=== PATIENT | female | born 1955 | race Caucasian/White ===

== ENCOUNTER 2019-04-15 06:00 | Outpatient (RCR) | payer OTHER, SELFPAY | END 2019-05-15 00:01 | LOC: SPT 06:00 | PROVIDERS: Family Provider Internal Medicine; Visit Provider Internal Medicine | DX: N39.3 Stress incontinence (female) (male) (principal) | CPT/HCPCS: 97110; 97140 ==

== ENCOUNTER → 2019-05-15 | Outpatient (CLI) | payer SELFPAY | PROVIDERS: Family Provider Internal Medicine; Visit Provider Podiatrist Foot & Ankle Surgery | DX: S92.355A Nondisplaced fracture of fifth metatarsal bone, left foot, initial encounter for closed fracture (principal); X58.XXXA Exposure to other specified factors, initial encounter; R60.9 Edema, unspecified | CPT/HCPCS: 73718; 73721 ==

== ENCOUNTER 2019-05-16 06:00 | Outpatient (RCR) | payer OTHER, SELFPAY | END 2019-06-15 23:59 | disposition home or self-care (01) | LOC: SPT 06:00 | PROVIDERS: Family Provider Internal Medicine; Visit Provider Podiatrist Foot & Ankle Surgery | DX: S92.355D Nondisplaced fracture of fifth metatarsal bone, left foot, subsequent encounter for fracture with routine healing (principal); X58.XXXD Exposure to other specified factors, subsequent encounter ==

== ENCOUNTER → 2019-05-24 16:21 | Outpatient (BNVA) | payer OTHER, SELFPAY | PROVIDERS: Family Provider Internal Medicine; PCP Internal Medicine; Visit Provider Podiatrist Foot & Ankle Surgery | DX: S92.352A Displaced fracture of fifth metatarsal bone, left foot, initial encounter for closed fracture (principal); X58.XXXA Exposure to other specified factors, initial encounter | CPT/HCPCS: 73630 ==

== ENCOUNTER 2019-06-22 06:52 | Day surgery (SDC) | payer OTHER, SELFPAY ==
[2019-06-21 11:03] VITALS: BMI 31.2
--- NOTE | 2019-06-22 | SCC_ITS ---
Procedure Done: Fifth metatarsal fracture Implants: Chama 28 hook plate and 2.5 mm locking and nonlocking screws. V 92 Ortho biologic 1 cc 3 seconds of fluoroscopic guidance, for a cumulative dose of 0.058 mGy, was provided to Dr. Nolasco by the radiology department. C-arm images of the LEFT foot were saved for the patient's permanent record. [facility]ENTER[facility]ed[facility]
[2019-06-22 07:24] VITALS: BP 142/73; PULSE 88; RESP 18; TEMP 36.4; O2SAT 96
[2019-06-22] MEDS: sodium chloride 0.9% 1,000 ML 30 ML IV (07:30)
--- NOTE | 2019-06-22 07:40 | ANES.PREANE2 ---
Pre-Anesthetic Assessment Pre-Anesthetic Assessment: Height/Weight: Height 1.63 m Weight 82.554 kg Temp Pulse Resp BP Pulse Ox 97.5 F L 88 18 142/73 96 06/22/19 07:24 06/22/19 07:24 06/22/19 07:24 06/22/19 07:24 06/22/19 07:24 Preop Diagnosis: Left fifth metatarsal fracture Proposed Procedure: Operation Date: 06/22/19 08:20 Proposed Procedures p ORIF Metatarsal 47616 S92.352D(Left) - Jarad Nolasco DPM Last intake: Intake Last Liquid Date 06/22/19 Last Liquid Time 04:00 Last Solid Date 06/21/19 Social: Packs per day: 1 Pack years: 46 Comment: quit 3 Exam: Pre-Anes Outpt Exam: alert, oriented x 3, clear to auscultation bilaterally and regular rate & rhythm CV/HEM: CV/HEM: HTN Comments: rx'd x 15 y hx electrical problems-Bundle branch block stress test negative 2Blocks/2FOS without angina/GONZALEZ GI: GI: GERD and Hiatus hernia Comments: well controlled Neuropsych: Neuropsych: Seizure Comments: last 10y following head trauma Anesthetic Plan: ASA status: 3 Anesthesia: MAC Meds/Allergies Current Medications: Current Medications Generic Name Dose Route Start Last Admin Trade Name Freq PRN Reason Stop Dose Admin Sodium Chloride 1,000 mls @ 30 ml s/hr 06/22/19 07:15 06/22/19 07:30 Sodium Chloride 0.9% IV 06/23/19 07:14 30 mls/hr .Q24H GILMA Administration PFSH Anesthesia PFSH: Medical History (Updated 06/21/19 @ 11:00 by Tiny Leonard RN) Anxiety and depression (Acute) GERD (gastroesophageal reflux disease) (Acute) Hypertension (Acute) Surgical History (Updated 06/21/19 @ 11:00 by Tiny Leonard RN) History of partial hysterectomy (Acute) History of total left hip arthroplasty (Acute) DOS: 04/22/2017 Dr. Geneva Pappas of appendectomy (Acute) Social History Smoking and tobacco status: former smoker Second hand smoke exposure: No Alcohol intake: never Adopted: No Caregiver/support person: Yes Lives independently: Yes Marital status: Single Current occupational status: employed Data Anesthesia Cardiac Studies: No Data to Display
[2019-06-22] MEDS: clindamycin 600 MG/50 ML PREMIX 100 MG IV (08:22)
--- NOTE | 2019-06-22 08:27 | PM.HPUD ---
H&P update H&P Update: DATE OF SURGERY/PROCEDURE: 06/22/19 DATE H&P PERFORMED: 05/24/19 H&P UPDATE INFORMATION: H&P completed within last 30 days, No changes to prior documentation and H&P is in [facility] on date indicated PREOP DIAGNOSIS: Left fifth metatarsal fracture PRIMARY INDICATION FOR PROCEDURE: Fifth metatarsal fracture PLANNED PROCEDURE: Operation Date: 06/22/19 08:20 Proposed Procedures p ORIF Metatarsal 06390 S92.352D(Left) - Jarad Nolasco DPM Open reduction internal fixation left fifth metatarsal fracture. Full H&P Medications/Allergies: Current Medications: Current Medications Generic Name Dose Route Start Last Admin Trade Name Freq PRN Reason Stop Dose Admin Sodium Chloride 1,000 mls @ 30 ml s/hr 06/22/19 07:15 06/22/19 07:30 Sodium Chloride 0.9% IV 06/23/19 07:14 30 mls/hr .Q24H GILMA Administration Perinent History: Medical/Surgical History: Medical History (Updated 05/29/19 @ 10:12 by Grzegorz Sanchez MD) Anxiety and depression (Acute) GERD (gastroesophageal reflux disease) (Acute) Hypertension (Acute) Family History: Family History (Updated 05/24/19 @ 17:20 by Katelyn Abrams RN) Mother Family history of premature coronary artery disease Hypertension Brother Cancer Hypertension Sister Cancer Father Family history of premature coronary artery disease Hypertension Denies family history of CAD (coronary artery disease) Suicide Anesthesia complication Bleeding disorder Social History: Social History Smoking and tobacco status: former smoker Second hand smoke exposure: No Alcohol intake: never Adopted: No Caregiver/support person: Yes Lives independently: Yes Marital status: Single Current occupational status: employed
[2019-06-22 09:43] VITALS: BP 112/55; PULSE 88; RESP 18; TEMP 36.6; O2SAT 94
--- NOTE | 2019-06-22 09:54 | XR_ITS ---
WS: [id number] Left foot, 3 views, 06/22/2019 Clinical Data: post op Comparison: Left foot, 05/24/2019 Findings: The fracture of the base of the left fifth metatarsal been repaired with a small orthopedic plate fi xed with orthopedic screws. XR/XR foot LT min 3V* [id number] Impression: Internal fixation of fracture of base of left fifth metatarsal.
--- NOTE | 2019-06-22 09:58 | PM.OP ---
Operative Report Date of procedure: June 22, 2019 Pre-op Diagnosis: Left fifth metatarsal fracture Post-op diagnosis: same Post-op Findings: Left fifth metatarsal fracture Procedure Done: Fifth metatarsal fracture Implants: [place] 28 hook plate and 2.5 mm locking and nonlocking screws. V 92 Ortho biologic 1 cc Specimens removed/disposition: No specimens removed Pathology: none sent Surgeon: Jarad Nolasco D.P.M. Acidizer Water Well: [place] Anesthesia: MAC and Local (Preoperatively performed a reverse Freedman block utilizing 25 cc of 0.5% Marcaine plain left foot. Postoperatively performed infiltration with Exparel total of 10 cc subcutaneously) Estimated blood loss: 2 mL Tourniquet time: See intraoperative documentation IV fluids: No IV fluids Urine output: None Complications: No complications Findings: Avulsion fracture left fifth metatarsal base Condition: stable Disposition: PACU Brief History: Is a pleasant 64-year-old female who sustained a avulsion fracture zone 1/tuberosity fracture of her left fifth metatarsal base. Unfortunately she developed a painful nonunion with conservative care consisting of nonweightbearing and protected weightbearing in a cam boot. Would like to undergo open reduction internal fixation risks include pain, bleeding, numbness, infection, hardware failure, hardware irritation, delayed union, malunion, damage to adjacent soft tissue structures, swelling, need for further surgical intervention.. Procedure: Under mild sedation the patient was brought to the operating room and placed on the operating table in supine position. A timeout was performed. Anesthesia was then administered by the anesthesia service. Local anesthesia was injected by myself as above. Well-padded pneumatic tourniquet was applied to the left ankle. The left lower extremity was then scrubbed, prepped and draped utilizing normal aseptic technique. Left foot was examined a weighted with an Esmarch bandage and the tourniquet was inflated to 250 mmHg. Attention was directed to the dorsal lateral aspect of the left fifth metatarsal base were bony landmarks were palpated including the tuberosity as well as peroneal tendon. A linear longitudinal incision was made with a #15 blade this was approximately 5 cm in length and carried down through skin and subcutaneous tissue utilizing a combination of blunt and sharp technique. Care was taken to retract and preserve neurovascular and tendinous structures. Bleeders were ligated and cauterized as necessary. The sural nerve was visualized and this was mobilized and retracted laterally throughout the duration of the procedure. A linear periosteal incision was made beginning at the base of the fifth metatarsal and the fracture site was visualized and freed from its soft tissue attachments. Fracture margins were freshened to healthy bleeding margin utilizing a 15 blade and bone curette. Incision site was then flushed with saline solution. Fracture site was then reduced with the foot held in a everted position as to avoid tension on the proneness brevis tendon insertion. A standard Cambridge 28 hook plate was then utilized to secure the fracture site with excellent bony apposition and compression noted. Utilizing 2.5 mm locking and nonlocking screws and standard AO technique the plate was fixated with excellent bone to plate interface. Orthopedic hardware positioning was confirmed utilizing direct visualization as well as intraoperative fluoroscopy in all 3 views noted to be excellent in all planes. A fracture site was then packed with V 92 with a mixture of bone marrow aspirate that was taken from the lateral calcaneus prior to the surgery. Incision site was gently irrigated with saline solution as to not disturb the Ortho biologic. Periosteal structure was reapproximated utilizing 3-0 Vicryl. Subcutaneous tissue was reapproximated utilizing 4-0 Vicryl with care to not entrap the sural nerve. Skin was then closed with 4-0 nylon. Incision site was dressed with Adaptic, sterile 4 x 4's, Kerlix and Scotty wrap, cam boot was applied. At this time tourniquet was deflated and a prompt hyperemic response was noted to the distal digits of the left foot. Patient tolerated the procedure well and was transferred to the PACU with vital signs stable and vascular status intact. Following a period of postoperative monitoring she will be discharged home is to be strict nonweightbearing to her left foot.
[2019-06-22 10:18] VITALS: BP 114/52; PULSE 80; RESP 18; O2SAT 96
== END 2019-06-22 10:57 | disposition home or self-care (01) ==
PROVIDERS: Family Provider Internal Medicine; PCP Internal Medicine; Visit Provider Podiatrist Foot & Ankle Surgery
PROC: (CPT 28485; principal; 2019-06-22 08:00)
DX: S92.352A Displaced fracture of fifth metatarsal bone, left foot, initial encounter for closed fracture (principal); X58.XXXA Exposure to other specified factors, initial encounter; F41.9 Anxiety disorder, unspecified; F32.9 Major depressive disorder, single episode, unspecified; Z82.49 Family history of ischemic heart disease and other diseases of the circulatory system; Z87.891 Personal history of nicotine dependence; K21.9 Gastro-esophageal reflux disease without esophagitis; I10 Essential (primary) hypertension
CPT/HCPCS: 28485; 12345; 73630; 76000; C1713; C9290; J2250; J2370; J2704; J3010; J3490; J7030

== ENCOUNTER → 2019-07-04 11:22 | Outpatient (BNVA) | payer OTHER, SELFPAY | PROVIDERS: Family Provider Internal Medicine; PCP Internal Medicine; Visit Provider Podiatrist Foot & Ankle Surgery | DX: Z48.89 Encounter for other specified surgical aftercare (principal) | CPT/HCPCS: 73630 ==

== ENCOUNTER → 2019-07-25 14:11 | Outpatient (BNVA) | payer OTHER, SELFPAY | PROVIDERS: Family Provider Internal Medicine; PCP Internal Medicine; Visit Provider Podiatrist Foot & Ankle Surgery | DX: Z48.89 Encounter for other specified surgical aftercare (principal); S92.352A Displaced fracture of fifth metatarsal bone, left foot, initial encounter for closed fracture; X58.XXXA Exposure to other specified factors, initial encounter | CPT/HCPCS: 73630 ==

== ENCOUNTER → 2019-08-15 09:48 | Outpatient (BNVA) | payer OTHER, SELFPAY | PROVIDERS: Family Provider Internal Medicine; PCP Internal Medicine; Visit Provider Podiatrist Foot & Ankle Surgery | DX: Z48.89 Encounter for other specified surgical aftercare (principal); S92.352A Displaced fracture of fifth metatarsal bone, left foot, initial encounter for closed fracture; X58.XXXA Exposure to other specified factors, initial encounter | CPT/HCPCS: 73630 ==

== ENCOUNTER → 2019-09-05 09:24 | Outpatient (BNVA) | payer OTHER, SELFPAY | PROVIDERS: Family Provider Internal Medicine; PCP Internal Medicine; Visit Provider Podiatrist Foot & Ankle Surgery | DX: Z48.89 Encounter for other specified surgical aftercare (principal) | CPT/HCPCS: 73630 ==

== ENCOUNTER 2019-09-18 16:04 | Emergency (ER) | payer OTHER, SELFPAY ==
[2019-09-18 16:07] VITALS: BP 166/76; PULSE 91; RESP 18; TEMP 36.4; O2SAT 97; BMI 30.8
--- NOTE | 2019-09-18 16:16 | XR_ITS ---
WS: [id number] XR ankle LT 2V [id number] REASON FOR EXAM: fall FINDINGS: The ankle mortise is normal. The tibia, fibula, talus show no definite fractures. A remote healed fracture of the base of the fifth metatarsal is noted. The posterior shelf of the tibia was normal. XR/XR ankle LT 2V [id number] IMPRESSION: Negative left ankle for fractures.
== END 2019-09-18 17:27 | disposition left against medical advice (07) ==
LOC: ER 16:12
PROVIDERS: Emergency Provider Physician Assistant; Family Provider Internal Medicine; PCP Internal Medicine
DX: Z53.21 Procedure and treatment not carried out due to patient leaving prior to being seen by health care provider (principal)
CPT/HCPCS: 73600; 99281

== ENCOUNTER → 2019-09-19 08:44 | Outpatient (BNVA) | payer OTHER, SELFPAY | PROVIDERS: Family Provider Internal Medicine; PCP Internal Medicine; Visit Provider Podiatrist Foot & Ankle Surgery | DX: Z48.89 Encounter for other specified surgical aftercare (principal); M79.673 Pain in unspecified foot; S92.332A Displaced fracture of third metatarsal bone, left foot, initial encounter for closed fracture | CPT/HCPCS: 73630 ==

== ENCOUNTER 2019-09-19 10:23 | Outpatient (CLI) | payer OTHER, SELFPAY ==
--- NOTE | 2019-09-19 11:00 | CT_ITS ---
WS: [id number] CT LEFT FOOT, NONCONTRAST, 3-D reconstructions. HISTORY: To rule out Lisfranc fracture Technique: All CT scans at [facility] use at least one of these dose optimization techniq ues: automated exposure control; mA and/or kV adjustment per patient size (includes targeted exams wh ere dose is matched to clinical indication); or iterative reconstruction. DLP: 810.82 mGycm COMPARISON: 09/19/2019 CT imaging is performed through cast material. Normal tarsal/metatarsal alignment. There is no avulsion fracture at the base of the second metatars al or from the first cuneiform. There is no widening between the first and second metatarsals. Plate and screw fixation involving the proximal fifth metatarsal. Normal alignment with essentially h ealed fracture. Nonhealed and nondisplaced fractures through the proximal third and fourth metatarsal s along the plantar surface. There is no displacement. There is an additional fracture through the pl hung surface of the third cuneiform. These fractures are best identified on the axial bone imaging. There is a lucency within the proximal first metatarsal but I believe this is probably a nutrient for amen and not a fracture. Calcaneus and talus are intact. CT/CT foot LT wo con* [id number] IMPRESSION: 1. No Lisfranc injury identified by CT. No avulsion fracture from the first cu neiform or second metatarsal. 2. Nondisplaced fractures involving the plantar surfaces of the third and four th metatarsals and also the third cuneiform. 3. Status post ORIF fifth metatarsal fracture in good alignment with healing.
== END 2019-09-19 10:24 | disposition home or self-care (01) ==
LOC: RADWPI 10:27
PROVIDERS: Family Provider Internal Medicine; PCP Internal Medicine; Visit Provider Podiatrist Foot & Ankle Surgery
DX: S92.332A Displaced fracture of third metatarsal bone, left foot, initial encounter for closed fracture (principal); X58.XXXA Exposure to other specified factors, initial encounter
CPT/HCPCS: 73700

== ENCOUNTER → 2019-10-01 11:59 | Outpatient (BNVA) | payer OTHER, SELFPAY | PROVIDERS: Family Provider Internal Medicine; PCP Internal Medicine; Visit Provider Podiatrist Foot & Ankle Surgery | DX: Z48.89 Encounter for other specified surgical aftercare (principal); M79.673 Pain in unspecified foot; X58.XXXA Exposure to other specified factors, initial encounter; S92.332D Displaced fracture of third metatarsal bone, left foot, subsequent encounter for fracture with routine healing; S92.352D Displaced fracture of fifth metatarsal bone, left foot, subsequent encounter for fracture with routine healing; X58.XXXD Exposure to other specified factors, subsequent encounter | CPT/HCPCS: 73630 ==

== ENCOUNTER 2019-10-01 15:06 | Outpatient (CLI) | payer OTHER, SELFPAY | END 2019-10-01 15:07 | disposition home or self-care (01) | LOC: SPT 15:07 | PROVIDERS: Family Provider Internal Medicine; PCP Internal Medicine; Visit Provider Podiatrist Foot & Ankle Surgery | DX: Z46.89 Encounter for fitting and adjustment of other specified devices (principal); S92.345D Nondisplaced fracture of fourth metatarsal bone, left foot, subsequent encounter for fracture with routine healing; X58.XXXD Exposure to other specified factors, subsequent encounter | CPT/HCPCS: 97760; L4361 ==

== ENCOUNTER → 2019-10-15 15:11 | Outpatient (BNVA) | payer OTHER, SELFPAY | PROVIDERS: Family Provider Internal Medicine; PCP Internal Medicine; Visit Provider Podiatrist Foot & Ankle Surgery | DX: Z48.89 Encounter for other specified surgical aftercare (principal); M79.673 Pain in unspecified foot; S92.333A Displaced fracture of third metatarsal bone, unspecified foot, initial encounter for closed fracture; S92.345A Nondisplaced fracture of fourth metatarsal bone, left foot, initial encounter for closed fracture; S92.352A Displaced fracture of fifth metatarsal bone, left foot, initial encounter for closed fracture; X58.XXXA Exposure to other specified factors, initial encounter | CPT/HCPCS: 73630 ==

== ENCOUNTER → 2019-10-30 15:10 | Outpatient (BNVA) | payer OTHER, SELFPAY | PROVIDERS: Family Provider Internal Medicine; PCP Internal Medicine; Visit Provider Podiatrist Foot & Ankle Surgery | DX: Z48.89 Encounter for other specified surgical aftercare (principal); S92.335A Nondisplaced fracture of third metatarsal bone, left foot, initial encounter for closed fracture; S92.345A Nondisplaced fracture of fourth metatarsal bone, left foot, initial encounter for closed fracture; S92.345D Nondisplaced fracture of fourth metatarsal bone, left foot, subsequent encounter for fracture with routine healing; X58.XXXA Exposure to other specified factors, initial encounter; X58.XXXD Exposure to other specified factors, subsequent encounter | CPT/HCPCS: 73630 ==

== ENCOUNTER → 2019-11-19 15:22 | Outpatient (BNVA) | payer OTHER, SELFPAY | PROVIDERS: Family Provider Internal Medicine; PCP Internal Medicine; Visit Provider Podiatrist Foot & Ankle Surgery | DX: S92.335D Nondisplaced fracture of third metatarsal bone, left foot, subsequent encounter for fracture with routine healing (principal); X50.1XXD Overexertion from prolonged static or awkward postures, subsequent encounter; S92.345D Nondisplaced fracture of fourth metatarsal bone, left foot, subsequent encounter for fracture with routine healing; Z98.890 Other specified postprocedural states | CPT/HCPCS: 73630 ==

== ENCOUNTER → 2019-12-06 15:43 | Outpatient (BNVA) | payer OTHER, SELFPAY | PROVIDERS: Family Provider Internal Medicine; PCP Internal Medicine; Visit Provider Podiatrist Foot & Ankle Surgery | DX: Z48.89 Encounter for other specified surgical aftercare (principal); M79.673 Pain in unspecified foot; S92.345A Nondisplaced fracture of fourth metatarsal bone, left foot, initial encounter for closed fracture; S92.332A Displaced fracture of third metatarsal bone, left foot, initial encounter for closed fracture | CPT/HCPCS: 73630 ==

== ENCOUNTER 2020-01-20 15:16 | Inpatient (IN) | payer OTHER, SELFPAY ==
[2020-01-20] VITALS (44 sets, daily range): BP systolic 113–185; BP diastolic 62–103; PULSE 72–112; RESP 15–30; TEMP 36.2–37.1; O2SAT 87–98; BMI 32.5
--- NOTE | 2020-01-20 15:25 | USR_ITS ---
PROCEDURE INFORMATION: Exam: US Duplex Right Lower Extremity Veins, Limited Exam date and time: 01/20/2020 3:28 PM Age: 64 years old Clinical indication: Pain; Leg, upper; Right; Additional info: Pain/swelling TECHNIQUE: Imaging protocol: Real-time Duplex ultrasound of the Right Lower Extremity with 2-D caro scale, color Doppler flow and spectral waveform analysis with image documentation. Limited exam was focused on the right lower extremity veins. COMPARISON: No relevant prior studies available. FINDINGS: Right deep veins: Unremarkable. The common femoral, femoral, proximal profunda femoral and popliteal veins are patent without thrombus. Normal Doppler waveforms. Normal compressibility and/or augmentation response. Right superficial veins: Unremarkable. Saphenofemoral junction is patent without thrombus. Soft tissues: There is a 3.9 x 1.9 x 3.4 cm solid mass posterior to the right knee. This mass has internal vascularity and is not a cyst. US/[place] [id number] IMPRESSION: 1. There is a 3.9 x 1.9 x 3.4 cm solid mass posterior to the right knee. This mass has internal vascularity and is not a cyst. MRI with without contrast is recommended to further evaluate this mass which is concerning for a neoplasm especially given its size. It does not have the typical shape or appearance of adenopathy. 2. No DVT in the right lower extremity.
--- NOTE | 2020-01-20 15:26 | XRR_ITS ---
PROCEDURE INFORMATION: Exam: XR Chest, 1 View Exam date and time: 01/20/2020 3:28 PM Age: 64 years old Clinical indication: Shortness of breath; Additional info: Dyspnea TECHNIQUE: Imaging protocol: XR of the chest Views: 1 view. COMPARISON: [place] Chest 1 [place] [id number] 08/07/2018 1:58 AM FINDINGS: Lungs: There is vascular congestion with cephalization of flow, interstitial edema, Irnia B lines without airspace edema compatible with mild interstitial CHF. No lobar consolidation. The lungs are hyperinflated in appears may be a component of underlying mild fibrosis. Pleural space: Unremarkable. No pleural effusion. No pneumothorax. Heart/Mediastinum: The heart is enlarged. Bones/joints: No acute abnormality. XR/XR chest 1V portable [id number] IMPRESSION: There is vascular congestion with cephalization of flow, interstitial edema, Irina B lines without airspace edema compatible with mild interstitial CHF.
--- NOTE | 2020-01-20 15:27 | ECG_ITS ---
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 Measurements Intervals Sinking [place] Rate: 94 P: 43 MO: 156 QRS: 8 QRSD: 158 T: 187 QT: 387 QTc: 484 Interpretive Statements SINUS RHYTHM LEFT BUNDLE BRANCH BLOCK [120+ ms QRS DURATION, 80+ ms Q/S IN V1/V2, 85+ ms R IN I/aVL/V5/V6] Compared to ECG 11/05/2018 20:24:41 Sinus tachycardia no longer present Electronically Signed On 01-21-2020 7:52:10 CDT by Ruthann Mccullough M.D. [id number]
--- NOTE | 2020-01-20 15:32 | W.ED.GENADLT ---
HPI - General Adult General: Chief complaint: General Medical Stated complaint: right leg swelling Time Seen by Provider: 01/20/20 15:20 History of Present Illness: HPI narrative: Dennise is a nice 64-year-old female who comes in complaining of right leg pain and swelling. She states her symptoms began yesterday and have gotten progressively worse. She states she feels pressure occur up in her right groin. She denies any chest pain but does have associated shortness of breath that is made worse with exertion. She denies any fevers or chills she denies any abdominal pain or left leg pain. Patient denies any similar symptoms to this in the past. She is unaware of anything that makes her symptoms better or worse other than when she exerts herself she becomes more short of breath. Associated symptoms: Reports chest pain and dyspnea; Deny confusion, diaphoresis, headache(s), malaise, nausea, rash, palpitations, syncope or vomiting Review of Systems Const: Denies: fever(s), chills, body aches, fatigue, malaise or diaphoresis Eyes: Denies: change in vision, blurry vision, photophobia, eye discomfort, eye discharge or eye redness ENMT: Denies: throat pain, odynophagia, hoarseness, swelling of lips/tongue, ear or mastoid pain, ear discharge, change in hearing or nasal discharge Card: Reports: chest pain; Denies: palpitations, irregular heart rhythm, edema, lightheadedness, syncope, pre-syncope, dyspnea on exertion or orthopnea Resp: Reports: dyspnea; Denies: productive cough, non-productive cough, wheezing, hemoptysis or chest congestion GI: Denies: abdominal pain, nausea, vomiting, hematemesis, coffee ground emesis, heartburn, diarrhea, constipation, GI cramping, hematochezia or melena : Denies: flank pain, dysuria, urinary frequency, urinary urgency or hematuria Musc: Reports: extremity pain; Denies: neck pain, back pain, extremity swelling, joint pain, joint swelling, joint redness, joint warmth or joint stiffness Skin/Breast: Denies: rash, pruritus, erythema or skin tenderness Neuro: Denies: headache(s), numbness in extremities, weakness in extremities, sensory changes, lack of coordination, difficulty walking, dizziness, vertigo, confusion, Slurred speech present or seizure-like activity Govind/Lymph: Denies: easy bruising, easy bleeding, petechiae, purpura or enlarged lymph nodes All/Imm: Denies: urticaria, throat swelling, tongue swelling, facial swelling or acute wheezing PFSH ED PFSH: Medical History Anxiety and depression GERD (gastroesophageal reflux disease) Hypertension Metabolic syndrome Sleep apnea Surgical History H/O tubal ligation History of hernia repair History of partial hysterectomy History of total left hip arthroplasty DOS: 04/22/2017 Dr. Bean History of total right hip arthroplasty Hx of appendectomy Family History Mother Family history of premature coronary artery disease Hypertension Brother Cancer Hypertension Sister Cancer Father Family history of premature coronary artery disease Hypertension Denies family history of Diabetes CAD (coronary artery disease) Clotting disorder Dementia Hyperlipidemia Psychiatric illness Chronic kidney disease (CKD) Suicide Anesthesia complication Bleeding disorder Lung disease Stroke Social History Smoking and tobacco status: former smoker Second hand smoke exposure: No Alcohol intake: never Adopted: No Caregiver/support person: Yes Lives independently: Yes Marital status: Single Current occupational status: employed Physical Exam Const: COMMON NORMALS: no acute distress, patient oriented x3, no limitations, healthy appearing and well nourished GENERAL APPEARANCE: cooperative, well kempt and well developed HENMT: COMMON NORMALS: normocephalic, atraumatic, external ears normal, EAC's normal and Normal external nose present HEAD & SCALP: normal to inspection, normocephalic and atraumatic FACE & SINUS: normal facial exam and face symmetric NOSE: Normal external nose present and Normal nares present EXTERNAL EAR: Yes external ears normal EXTERNAL AUDITORY CANAL: EAC's normal MOUTH: Normal oral and palatal mucosa present, lip normal and tongue normal Eye: COMMON NORMALS: Equal, round and reactive pupils present and conjunctivae normal GENERAL EYE: appearance normal, both eyes and all related structures ALIGNMENT: Yes alignment normal PERIORBITAL: periorbital findings normal EYELID: eyelids normal CONJUNCTIVA: Yes conjunctivae normal SCLERA: sclerae normal PUPIL: Yes Equal, round and reactive pupils present Neck/C-Spine: COMMON NORMALS: full ROM, no lymphadenopathy, supple, no meningeal signs and no JVD GENERAL: Yes normal visual inspection and Yes trachea midline Chest: COMMONS NORMALS: normal inspection of the chest and normal palpation of entire chest wall Resp: COMMON NORMALS: normal respiratory effort, No retractions, No use of accessory muscles and clear to auscultation bilaterally EFFORT & INSPECTION: Yes able to speak in complete sentences and Yes symmetric chest movement AUSCULTATION: clear to auscultation bilaterally, no crackles, no rales, no rhonchi and no wheezes Cardio: COMMON NORMALS: no JVD, regular rate, regular rhythm, S1 normal heart sound present and S2 normal heart sound present RATE: regular rate RHYTHM: regular rhythm HEART SOUNDS: S1 normal heart sound present, S2 normal heart sound present, no click, no gallops, no murmurs, no rubs and abnormal split S2 GI: COMMON NORMALS: Soft to palpation and No hepatosplenomegaly present PALPATION: Yes Soft to palpation, No Tenderness to palpation present (GI), No Guarding due to palpation present (GI), No Rigid due to palpation, Yes No hepatosplenomegaly present, No Hernia present, No Palpable mass present and No Pulsatile mass present : COMMON NORMALS: Yes no CVA tenderness BLADDER/KIDNEY EXAM: Yes no CVA tenderness EXTERNAL FEMALE EXAM: No Hernia present Back/Pelvis: COMMON NORMALS: no CVA tenderness, thoracic and lumbar spine normal to inspection, no thoracic nor lumbar tenderness and thoraco-lumbar ROM normal Extremity: COMMON NORMALS: normal to inspection, full ROM, capillary refill normal, no joint enlargement, no clubbing, cyanosis or edema and no calf tenderness Neuro: COMMON NORMALS: patient oriented x3, CN's II-XII intact bilaterally, moves all extremities, no focal motor deficits and no sensory deficits noted MENINGEAL SIGNS: Yes no meningeal signs SPEECH: speech normal Psych: COMMON NORMALS: mental status grossly normal, Normal thought process present, cooperative, normal affect, speech normal and activity/motor behavior normal APPEARANCE: Yes well kempt SPEECH: Yes normal speech THOUGHT PROCESS: Normal thought process present Skin: COMMON NORMALS: no rashes or lesions noted, turgor normal, no jaundice, no petechiae and no mottling GENERAL SKIN EXAM: no rashes or lesions noted and turgor normal Course Vital Signs: Vital signs: Vital Signs Temperature 97.1 F L 01/20/20 15:18 Pulse Rate 104 H 01/20/20 17:55 Respiratory Rate 22 H 01/20/20 17:55 Blood Pressure 155/81 01/20/20 17:55 Pulse Oximetry 98 01/20/20 17:55 MDM - General Adult MDM Narrative: Medical decision making narrative: Patient got extremely panicky here and had a fall. She complains of injury to her left shoulder but x-rays are normal. Patient shows no sign of elevation of her cardiac enzymes. Her EKG shows a stable left bundle branch block. There is no PE on CT. She doing much better now after she is diuresed 1500 cc of fluid. I have added on a COVID test per the request of the hospitalist. Dr. Hawthorne agrees to come see the patient in the ER. Lab Data: Attestation: I reviewed the patient's lab results. Labs: Lab Results 01/20/20 01/20/20 01/20/20 Range/Units 15:40 15:40 15:40 WBC 5.0 (4.0-10.0) 10^3/ uL RBC 4.18 (4.1-5.3) 10^6/u L Hgb 12.7 (11.5-15.3) g/dL Hct 39.4 (37.0-47.0) % MCV 94.3 (81-99) fL MCH 30.4 (28.0-34.0) pg MCHC 32.2 (30.0-36.0) g/dL RDW 13.5 (12.1-15.1) % Plt Count 269 (130-400) 10^3/c mm MPV 9.7 (7.4-10.4) fL Neut % (Auto) 60.8 % Lymph % (Auto) 32.0 % [place] % (Auto) 5.4 % Eos % (Auto) 0.8 % Baso % (Auto) 0.8 % Neut # (Auto) 3.06 (1.8-7.7) 10^3/u L Lymph # (Auto) 1.6 (0.8-4.8) 10^3/u L [place] # (Auto) 0.3 (0.2-0.9) 10^3/u L Eos # (Auto) 0.0 (0.0-0.8) 10^3/u L Baso # (Auto) 0.0 (0.0-0.1) 10^3/u L Nucleated RBC % (a uto) 0 % Nucleated RBCs # 0.0 /100WBC PT 12.30 (12.1-14.9) SECO NDS INR 0.89 (0.8-1.2) D-Dimer 1.58 H (0-0.59) ug/mIFE U Specimen Type Sample Site ABG pH (7.35-7.45) ABG pCO2 (35-45) mmHg ABG pO2 (80.0-100.0) mmH g ABG HCO3 (22-26) mmol/L ABG Base Excess (-2.0-2.0) mmol/ L Dexter Test Hematocrit (37-47) % O2 Delivery Device Irrigation Service Technician ID Sodium 142 (136-145) mmol/L Potassium 3.5 (3.5-5.1) mmol/L Chloride 106 (98-107) mmol/L Carbon Dioxide 26 (22-29) mmol/L Anion Gap 13.5 (5-19) BUN 9 (8-23) mg/dL Creatinine 0.8 (0.5-0.9) mg/dL GFR Calculation 72.4 L (90-130) mL/min Glucose 136 H (65-115) mg/dL Calculated Osmolal ity 292 (285-295) mOsm/k g Lactic Acid (0.5-2.2) mmol/L Calcium 9.1 (8.5-10.5) mg/dL Magnesium 1.9 (1.7-2.3) mg/dL Total Bilirubin 0.5 (0.15-1.2) mg/dL AST 19 (0-32) U/L ALT 21 (0-33) U/L Alkaline Phosphata se 129 H (35-105) IU/L Troponin T Baselin e (0-10) ng/L NT-Pro-B Natriuret Pep 759 H (0-125) pg/mL Total Protein 7.0 (6.6-8.7) g/dL Albumin 4.3 (3.5-5.2) g/dL Globulin 2.7 (1.3-4.6) g/dL Urine Color (Yellow) Urine Appearance (CLEAR) Urine pH (5-7) Ur Specific Gravit y (1.005-1.030) Urine Protein (Negative) Urine Glucose (UA) (Normal) Urine Ketones (Negative) Urine Blood (Negative) Urine Nitrate (Negative) Urine Bilirubin (NEGATIVE) Prot Sulfosalicyli c Acd (Negative) Urine Urobilinogen (Negative) mg/dL Ur Leukocyte Norma ase (Negative) 01/20/20 01/20/20 01/20/20 Range/Units 15:40 15:40 15:49 WBC (4.0-10.0) 10^3/ uL RBC (4.1-5.3) 10^6/u L Hgb (11.5-15.3) g/dL Hct (37.0-47.0) % MCV (81-99) fL MCH (28.0-34.0) pg MCHC (30.0-36.0) g/dL RDW (12.1-15.1) % Plt Count (130-400) 10^3/c mm MPV (7.4-10.4) fL Neut % (Auto) % Lymph % (Auto) % [place] % (Auto) % Eos % (Auto) % Baso % (Auto) % Neut # (Auto) (1.8-7.7) 10^3/u L Lymph # (Auto) (0.8-4.8) 10^3/u L [place] # (Auto) (0.2-0.9) 10^3/u L Eos # (Auto) (0.0-0.8) 10^3/u L Baso # (Auto) (0.0-0.1) 10^3/u L Nucleated RBC % (a uto) % Nucleated RBCs # /100WBC PT (12.1-14.9) SECO NDS INR (0.8-1.2) D-Dimer (0-0.59) ug/mIFE U Specimen Type Arterial Sample Site Radial, left ABG pH 7.41 (7.35-7.45) ABG pCO2 38.8 (35-45) mmHg ABG pO2 87.4 (80.0-100.0) mmH g ABG HCO3 24.6 (22-26) mmol/L ABG Base Excess 0.1 (-2.0-2.0) mmol/ L Dexter Test Pos Hematocrit 40.9 (37-47) % O2 Delivery Device Room air Irrigation Service Technician ID Gd Sodium (136-145) mmol/L Potassium (3.5-5.1) mmol/L Chloride (98-107) mmol/L Carbon Dioxide (22-29) mmol/L Anion Gap (5-19) BUN (8-23) mg/dL Creatinine (0.5-0.9) mg/dL GFR Calculation (90-130) mL/min Glucose (65-115) mg/dL Calculated Osmolal ity (285-295) mOsm/k g Lactic Acid 1.8 (0.5-2.2) mmol/L Calcium (8.5-10.5) mg/dL Magnesium (1.7-2.3) mg/dL Total Bilirubin (0.15-1.2) mg/dL AST (0-32) U/L ALT (0-33) U/L Alkaline Phosphata se (35-105) IU/L Troponin T Baselin e 8 (0-10) ng/L NT-Pro-B Natriuret Pep (0-125) pg/mL Total Protein (6.6-8.7) g/dL Albumin (3.5-5.2) g/dL Globulin (1.3-4.6) g/dL Urine Color (Yellow) Urine Appearance (CLEAR) Urine pH (5-7) Ur Specific Gravit y (1.005-1.030) Urine Protein (Negative) Urine Glucose (UA) (Normal) Urine Ketones (Negative) Urine Blood (Negative) Urine Nitrate (Negative) Urine Bilirubin (NEGATIVE) Prot Sulfosalicyli c Acd (Negative) Urine Urobilinogen (Negative) mg/dL Ur Leukocyte Norma ase (Negative) 01/20/20 Range/Units 17:10 WBC (4.0-10.0) 10^3/ uL RBC (4.1-5.3) 10^6/u L Hgb (11.5-15.3) g/dL Hct (37.0-47.0) % MCV (81-99) fL MCH (28.0-34.0) pg MCHC (30.0-36.0) g/dL RDW (12.1-15.1) % Plt Count (130-400) 10^3/c mm MPV (7.4-10.4) fL Neut % (Auto) % Lymph % (Auto) % [place] % (Auto) % Eos % (Auto) % Baso % (Auto) % Neut # (Auto) (1.8-7.7) 10^3/u L Lymph # (Auto) (0.8-4.8) 10^3/u L [place] # (Auto) (0.2-0.9) 10^3/u L Eos # (Auto) (0.0-0.8) 10^3/u L Baso # (Auto) (0.0-0.1) 10^3/u L Nucleated RBC % (a uto) % Nucleated RBCs # /100WBC PT (12.1-14.9) SECO NDS INR (0.8-1.2) D-Dimer (0-0.59) ug/mIFE U Specimen Type Sample Site ABG pH (7.35-7.45) ABG pCO2 (35-45) mmHg ABG pO2 (80.0-100.0) mmH g ABG HCO3 (22-26) mmol/L ABG Base Excess (-2.0-2.0) mmol/ L Dexter Test Hematocrit (37-47) % O2 Delivery Device Irrigation Service Technician ID Sodium (136-145) mmol/L Potassium (3.5-5.1) mmol/L Chloride (98-107) mmol/L Carbon Dioxide (22-29) mmol/L Anion Gap (5-19) BUN (8-23) mg/dL Creatinine (0.5-0.9) mg/dL GFR Calculation (90-130) mL/min Glucose (65-115) mg/dL Calculated Osmolal ity (285-295) mOsm/k g Lactic Acid (0.5-2.2) mmol/L Calcium (8.5-10.5) mg/dL Magnesium (1.7-2.3) mg/dL Total Bilirubin (0.15-1.2) mg/dL AST (0-32) U/L ALT (0-33) U/L Alkaline Phosphata se (35-105) IU/L Troponin T Baselin e (0-10) ng/L NT-Pro-B Natriuret Pep (0-125) pg/mL Total Protein (6.6-8.7) g/dL Albumin (3.5-5.2) g/dL Globulin (1.3-4.6) g/dL Urine Color Yellow (Yellow) Urine Appearance Clear (CLEAR) Urine pH 8 H (5-7) Ur Specific Gravit y 1.005 (1.005-1.030) Urine Protein Neg (Negative) Urine Glucose (UA) Norm (Normal) Urine Ketones Negative (Negative) Urine Blood Neg (Negative) Urine Nitrate Negative (Negative) Urine Bilirubin Neg (NEGATIVE) Prot Sulfosalicyli c Acd Negative (Negative) Urine Urobilinogen Norm (Negative) mg/dL Ur Leukocyte Norma ase Negative (Negative) Imaging Data^: CXR: Attestation: I personally reviewed and interpreted this imaging study as follows: My impression: Mild pulmonary vascular congestion CT Chest: Radiologist's impression: [place] [address] CT Scan Report Signed Patient: Dennise Funes Unit #: [id number] : 1955 Age/Sex: 64 / F ADM Date: 01/20/20 Loc: ER Room/Bed: Attending Dr: Ordering Provider/Ordering MD: Phuong Mckeon DO Date of Service: 01/20/20 Procedure(s): CT angio chest PE protcl [id number] Accession Number(s): [id number] Report Number: [id number] PROCEDURE INFORMATION: Exam: CT Angiography Chest With Contrast Exam date and time: 01/20/2020 4:17 PM Age: 64 years old Clinical indication: Dyspnea and shortness of breath TECHNIQUE: Imaging protocol: Computed tomographic angiography of the chest with intravenous contrast. 3D rendering (Not supervised by radiologist): MIP and/or 3D reconstructed images were created by the technologist. Radiation optimization: All CT scans at this facility use at least one of these dose optimization techniques: automated exposure control; mA and/or kV adjustment per patient size (includes targeted exams where dose is matched to clinical indication); or iterative reconstruction. Contrast material: OMNIPAQUE 350; Contrast volume: 95 ml; Contrast route: INTRAVENOUS (IV); COMPARISON: CTA Chest-Pulmonary Emb [id number] 08/07/2018 3:15 AM RADIATION DOSE METRICS: Total DLP (mGy-cm): 601.92 FINDINGS: Pulmonary arteries: There is no pulmonary embolus. Aorta: Unremarkable. No aortic aneurysm. No aortic dissection. Lungs: There is ground-glass opacity with a tree-in-bud densities in the lungs compatible with pneumonitis. There are moderate emphysematous changes. No dense lobar consolidation. There is subpleural atelectasis of the dependent portions of the lungs. Pleural space: Unremarkable. No pneumothorax. No pleural effusion. Heart: Unremarkable. No cardiomegaly. No pericardial effusion. Mediastinal space: A small hiatal hernia is present. Lymph nodes: Unremarkable. No enlarged lymph nodes. Adrenals: There are unchanged bilateral lipid rich adrenal adenomas. Bones/joints: Unremarkable. No acute fracture. Soft tissues: Unremarkable. CT/CT angio chest PE protcl [id number] IMPRESSION: 1. There is no pulmonary embolus. 2. There are unchanged bilateral lipid rich adrenal adenomas. 3. There is ground-glass opacity with a tree-in-bud densities in the lungs compatible with pneumonitis. No lobar consolidation. Radiation Dose CTDIVOL = (mGy): DLP = 601.92 (mGy-cm) Dictated By: Franchesca Barr Signed By: Franchesca Barr Signed Date/Time: 01/20/201702 DD/ 01 Left shoulder: My impression: Acute fractures or dislocation EKG Data^: EKG 1: Attestation: I personally reviewed and interpreted this EKG as follows: EKG interpretation date: 01/20/20 EKG interpretation time: 16:05 Interpretation: No sinus rhythm at 94 beats a minute, left bundle branch block, similar to previous. Computer generated interpretation: Venous Duplex 01/20/20 15:25 IMPRESSION: 1. There is a 3.9 x 1.9 x 3.4 cm solid mass posterior to the right knee. This mass has internal vascularity and is not a cyst. MRI with without contrast is recommended to further evaluate this mass which is concerning for a neoplasm especially given its size. It does not have the typical shape or appearance of adenopathy. 2. No DVT in the right lower extremity. Chest X-Ray 01/20/20 15:26 IMPRESSION: There is vascular congestion with cephalization of flow, interstitial edema, Irina B lines without airspace edema compatible with mild interstitial CHF. Chest CTA 01/20/20 16:16 IMPRESSION: 1. There is no pulmonary embolus. 2. There are unchanged bilateral lipid rich adrenal adenomas. 3. There is ground-glass opacity with a tree-in-bud densities in the lungs compatible with pneumonitis. No lobar consolidation. Radiation Dose CTDIVOL = (mGy): DLP = 601.92 (mGy-cm) Shoulder X-Ray 01/20/20 17:11 IMPRESSION: No acute bony abnormality. EKG 2: Attestation: I personally reviewed and interpreted this EKG as follows: EKG interpretation date: 01/20/20 EKG interpretation time: 17:45 Computer generated interpretation: Venous Duplex 01/20/20 15:25 IMPRESSION: 1. There is a 3.9 x 1.9 x 3.4 cm solid mass posterior to the right knee. This mass has internal vascularity and is not a cyst. MRI with without contrast is recommended to further evaluate this mass which is concerning for a neoplasm especially given its size. It does not have the typical shape or appearance of adenopathy. 2. No DVT in the right lower extremity. Chest X-Ray 01/20/20 15:26 IMPRESSION: There is vascular congestion with cephalization of flow, interstitial edema, Irina B lines without airspace edema compatible with mild interstitial CHF. Chest CTA 01/20/20 16:16 IMPRESSION: 1. There is no pulmonary embolus. 2. There are unchanged bilateral lipid rich adrenal adenomas. 3. There is ground-glass opacity with a tree-in-bud densities in the lungs compatible with pneumonitis. No lobar consolidation. Radiation Dose CTDIVOL = (mGy): DLP = 601.92 (mGy-cm) Shoulder X-Ray 01/20/20 17:11 IMPRESSION: No acute bony abnormality. Discharge Plan Discharge Patient Disposition: Admitted As Inpatient Clinical Impression: Acute exacerbation of CHF (congestive heart failure) Condition: Stable Prescriptions: No Action pantoprazole [Protonix] 40 mg tablet,delayed release (DR/EC) 40 mg PO BID Qty: 180 RF: 3 albuterol sulfate [Ventolin HFA] 90 mcg/actuation HFA aerosol inhaler 2 puff INHALATION Q6H PRN (Reason: Shortness Of Breath) RF: 0 hydroxyzine pamoate 25 mg capsule See Rx Instructions .ROUTE .COMPLEX Qty: 90 RF: 5 duloxetine 30 mg capsule,delayed release(DR/EC) 30 mg PO DAILY Qty: 90 RF: 2 tamsulosin 0.4 mg capsule 0.4 mg PO DAILY Qty: 30 RF: 3 naproxen sodium [Aleve] 220 mg Tablet 220 mg PO Q8H PRN (Reason: Pain) RF: 0 Referrals: Grzegorz Sanchez MD [Primary Care Provider] - Coding Level of Care Code ED [facility] for Chg Fwd Exam Comprehensive
[2020-01-20 15:57] LABS: Basophils % 0.8 %; Eosinophils % 0.8 %; Hematocrit 39.4 % (37.0-47.0); Hemoglobin 12.7 g/dL (11.5-15.3); Lymphocytes # 1.6 10^3/uL (0.8-4.8); Mean Corpuscular HGB Conc 32.2 g/dL (30.0-36.0); Mean Corpuscular Hemoglobin 30.4 pg (28.0-34.0); Mean Corpuscular Volume 94.3 fL (81-99); Mean Platelet Volume 9.7 fL (7.4-10.4); Monocytes # 0.3 10^3/uL (0.2-0.9); Monocytes % 5.4 %; Neutrophils # 3.06 10^3/uL (1.8-7.7); Neutrophils % 60.8 %; Nucleated Red Blood Cells % 0 %; Platelet Count 269 10^3/cmm (130-400); Red Blood Count 4.18 10^6/uL (4.1-5.3); Red Cell Distribution Width 13.5 % (12.1-15.1)
[2020-01-20 16:03] LABS: ABG PCO2 38.8 mmHg (35-45); ABG PH Result 7.41 (7.35-7.45); Arterial Blood Gas Hematocrit 40.9 % (37-47); Base Excess ABG 0.1 mmol/L (-2.0-2.0); Blood Gas Allen Test Pos; Blood Gas Operator Identificat GD; Blood Gas Sample Site Radial, left; Blood Gas Sample Type Arterial; HCO3 ABG 24.6 mmol/L (22-26); Oxygen Device ROOM AIR; PO2 ABG 87.4 mmHg (80.0-100.0)
[2020-01-20] MEDS: ipratropium-albuterol 3 mL Neb 9 ML INHALATION (16:14)
--- NOTE | 2020-01-20 16:16 | CTR_ITS ---
PROCEDURE INFORMATION: Exam: CT Angiography Chest With Contrast Exam date and time: 01/20/2020 4:17 PM Age: 64 years old Clinical indication: Dyspnea and shortness of breath TECHNIQUE: Imaging protocol: Computed tomographic angiography of the chest with intravenous contrast. 3D rendering (Not supervised by radiologist): MIP and/or 3D reconstructed images were created by the technologist. Radiation optimization: All CT scans at this facility use at least one of these dose optimization techniques: automated exposure control; mA and/or kV adjustment per patient size (includes targeted exams where dose is matched to clinical indication); or iterative reconstruction. Contrast material: OMNIPAQUE 350; Contrast volume: 95 ml; Contrast route: INTRAVENOUS (IV); COMPARISON: CTA Chest-Pulmonary Emb [id number] 08/07/2018 3:15 AM RADIATION DOSE METRICS: Total DLP (mGy-cm): 601.92 FINDINGS: Pulmonary arteries: There is no pulmonary embolus. Aorta: Unremarkable. No aortic aneurysm. No aortic dissection. Lungs: There is ground-glass opacity with a tree-in-bud densities in the lungs compatible with pneumonitis. There are moderate emphysematous changes. No dense lobar consolidation. There is subpleural atelectasis of the dependent portions of the lungs. Pleural space: Unremarkable. No pneumothorax. No pleural effusion. Heart: Unremarkable. No cardiomegaly. No pericardial effusion. Mediastinal space: A small hiatal hernia is present. Lymph nodes: Unremarkable. No enlarged lymph nodes. Adrenals: There are unchanged bilateral lipid rich adrenal adenomas. Bones/joints: Unremarkable. No acute fracture. Soft tissues: Unremarkable. CT/CT angio chest PE protcl [id number] IMPRESSION: 1. There is no pulmonary embolus. 2. There are unchanged bilateral lipid rich adrenal adenomas. 3. There is ground-glass opacity with a tree-in-bud densities in the lungs compatible with pneumonitis. No lobar consolidation. Radiation Dose CTDIVOL = (mGy): DLP = 601.92 (mGy-cm)
[2020-01-20 16:18] LABS: INR 0.89 (0.8-1.2)
[2020-01-20 16:19] LABS: Lactic Sepsis W/Reflex 1.8 mmol/L (0.5-2.2)
[2020-01-20 16:21] LABS: D Dimer 1.58 ug/mIFEU (0-0.59)
[2020-01-20 16:27] LABS: Alanine Aminotransferase 21 U/L (0-33); Albumin Level 4.3 g/dL (3.5-5.2); Alkaline Phosphatase 129 IU/L (35-105); Anion Gap 13.5 (5-19); Aspartate Amino Transferase 19 U/L (0-32); Blood Urea Nitrogen 9 mg/dL (8-23); Calcium 9.1 mg/dL (8.5-10.5); Carbon Dioxide 26 mmol/L (22-29); Chloride 106 mmol/L (98-107); Globulin 2.7 g/dL (1.3-4.6); Glomerular Filtration Rate 72.4 mL/min (90-130); Glucose 136 mg/dL (65-115); Magnesium 1.9 mg/dL (1.7-2.3); Osmolality Calculated 292 mOsm/kg (285-295); Potassium 3.5 mmol/L (3.5-5.1); Sodium 142 mmol/L (136-145); Total Bilirubin 0.5 mg/dL (0.15-1.2)
[2020-01-20 16:29] LABS: NT Pro B Type Natriuretic Pept 759 pg/mL (0-125)
[2020-01-20 16:44] LABS: Troponin(5th) Baseline 8 ng/L (0-10)
[2020-01-20] MEDS: iohexol 350 mg/mL 100 mL Btl IV (16:49)
[2020-01-20] MEDS: nitroglycerin 1 gm/inch oint Pkt 1 INCH TOPICAL (16:52)
[2020-01-20] MEDS: potassium chloride ER 10 mEq Tablet 40 MEQ PO (16:54)
[2020-01-20] MEDS: LORazepam 2 mg/mL INJ 1 mL 0.5 MG IVP ×2 (16:54→19:16)
[2020-01-20] MEDS: FUROsemide 10 mg/mL SDV 4mL 40 MG IVP (16:55)
--- NOTE | 2020-01-20 17:11 | XRR_ITS ---
PROCEDURE INFORMATION: Exam: XR Left Shoulder Exam date and time: 01/20/2020 5:29 PM Age: 64 years old Clinical indication: Injury or trauma; Fall; Initial encounter; Blunt trauma (contusions or hematomas; Shoulder; Injury date: 01/20/2020; Injury details: PT fell in er, landed on left arm; Additional info: Fall/injury TECHNIQUE: Imaging protocol: XR Left shoulder. Views: 2 or more views. COMPARISON: CR Shoulder 2+ views LEFT* [id number] 11/05/2018 8:59 PM FINDINGS: Bones/joints: Osteopenia and moderate degenerative changes in the left acromioclavicular and glenohumeral joints are noted. There is no acute fracture or dislocation. The acromioclavicular joint alignment is appropriate. The subacromial joint space is well-preserved. The glenohumeral joint is unremarkable. The visualized ribs are intact. Lungs: The visualized lung apex is clear. Soft tissues: No calcific tendinopathy. XR/XR shoulder LT min 2V* [id number] IMPRESSION: No acute bony abnormality.
[2020-01-20 17:15] LABS: Add Urine Microscopic? NO
--- NOTE | 2020-01-20 17:27 | ECG_ITS ---
[facility] Test Date: 2020-01-20 Pat Name: Dennise Funes Department: Room: Gender: Female [place]: : 1955 Requested By: Phuong Hutchins Order Number: [id number] Evgeny MD: Ruthann Mccullough M.D. Measurements Intervals [place] Rate: 106 P: 50 [place]: 142 QRS: 8 QRSD: 154 T: 171 QT: 381 QTc: 508 Interpretive Statements SINUS TACHYCARDIA LEFT BUNDLE BRANCH BLOCK [120+ ms QRS DURATION, 80+ ms Q/S IN V1/V2, 85+ ms R IN I/aVL/V5/V6] Compared to ECG 01/20/2020 16:05:30 Sinus rhythm no longer present Electronically Signed On 01-21-2020 8:20:49 CDT by Ruthann Mccullough M.D. [id number]
[2020-01-20 17:32] LABS: Bilirubin Urine Neg (NEGATIVE); Blood Urine Neg (Negative); Glucose Urine UA Norm (Normal); Ketones Urine Negative (Negative); Leukocyte Esterase Urine Negative (Negative); Nitrate Urine Negative (Negative); Protein Urine Neg (Negative); Specific Gravity, Urine 1.005 (1.005-1.030); Sulfosalicylic Acid Urine Negative (Negative); Urine Appearance Clear (CLEAR); Urine Color Yellow (Yellow); Urobilinogen Urine Norm (Negative); pH Urine 8 (5-7)
--- NOTE | 2020-01-20 17:40 | PC.NURSE ---
patient swabbed for COVID at this time
[2020-01-20 18:17] LABS: SARS Covid-2 Antigen Negative (Negative)
[2020-01-20 18:40] LABS: Troponin 5 2HR 8.07 ng/L (0-10); Troponin 5 2HR Delta 0.07 ABS# (0-10)
--- NOTE | 2020-01-20 19:10 | P.HP_ITS ---
Providers/Chief Complaint Admitting Physician: Angelika Smith MD Primary Care Provider: Grzegorz Sanchez MD Chief Complaint: right leg swelling History of Present Illness Dennise Funes is a 64 year old female with PMHx noted below presents from home for evaluation of worsening shortness of breath particularly with exertion and noted cystic lesion on the right knee that she noticed on Tuesday for the first time. Patient appears to be quite anxious during my assessment in the ER and w as noted to have had a fall, unwitnessed while she has been here. She is quite apprehensive since that episode. Explaining this to me seems to trigger her anxiety which makes her even more dyspneic particularly with additional conversation. She is currently on room air and prior to telling me of the fall while calm she is not overtly dyspneic. Her shortness of breath initially started on Tuesday and has gradually been worsening particularly last night with associated chest tightness. She denies having had any fever though she has had some chills, denies nausea/vomiting, abdominal pain, syncope, dizziness, difficulty swallowing, hoarseness of voice, loss in sense of taste or smell, lower extremity swelling, abdominal fullness. 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 She denies any other exposure including more recently. She was noted to be wheezing during initial evaluation in the ER but this seems to have improved following nebulizer treatments and IV steroids. Work-up indicates normal white count, normal hemoglobin, normal electrolytes and renal function, lactic acid of 1.8, normal coags, d-dimer 1.58, appropriate ABG which was done on room air. Chest x-ray is indicative of pulmonary vascular congestion, rapid COVID-19 test is negative, CTA ruled out PE but shows signs in dicative of viral pneumonitis as well as bilateral adrenal adenomas. Venous duplex ruled out DVT but does show a vascular solid mass posterior to the right knee that may be concerning for malignancy with recommendation made for additional imaging with MRI. Patient had a Stewart catheter placed due to complaints of dizziness and aforementioned fall. She has received a 40 mg dose of IV Lasix and has had diuresis of approximately 3 L. Due to exposure to known COVID-19 individual and noted viral pneumonitis will do PCR testing for confirmation. Patient will require further diuresis, continued monitoring of her hemodynamic and respiratory status hence need for admission. Due to need for COVID-19 rule out she will be admitted to ICU. Review of Systems Const: Reports: chills, fatigue and malaise; Denies: fever(s) Eyes: Denies: change in vision ENMT: Reports: dry mouth Card: Reports: dyspnea on exertion; Denies: chest pain, edema, swelling of feet/ankles, lightheadedness or syncope Resp: Reports: dyspnea; Denies: productive cough or non-productive cough GI: Denies: abdominal pain, nausea, vomiting, hematemesis or hematochezia : Denies: difficulty voiding, dysuria or hematuria Musc: Reports: joint pain (L shoulder) and joint swelling (R knee); Denies: back pain Skin/Breast: Denies: rash Neuro: Denies: numbness in extremities or weakness in extremities Psych: Reports: anxiety Medications/Allergies Home Medications Medication Instructions Recorded Confirmed Last Taken Type albuterol sulfate 90 mcg/actuation 2 puff INHALATION Q6H PRN 05/25/19 01/20/20 01/20/20 History aerosol inhaler pantoprazole 40 mg tablet,delayed 40 mg PO BID #180 tab 05/29/19 01/20/20 01/20/20 Rx release naproxen sodium [Aleve] 220 mg PO Q8H PRN 06/22/19 01/20/20 06/21/19 History hydroxyzine pamoate 25 mg capsule See Rx Instructions .ROUTE 11/26/19 01/20/20 Unknown Rx .COMPLEX #90 cap duloxetine 30 mg capsule,delayed 30 mg PO DAILY #90 cap 12/20/19 01/20/20 01/20/20 Rx release tamsulosin 0.4 mg capsule 0.4 mg PO DAILY #30 cap 12/20/19 01/20/20 01/20/20 Rx Allergies Allergy/AdvReac Type Severity Reaction Status Date / Time amoxicillin Allergy Mild Whelps Verified 12/13/19 07:45 Penicillins Allergy Mild Rash Verified 12/13/19 07:45 phenytoin [From Dilantin] Allergy Mild Rash Verified 12/13/19 07:45 PFSH Acute PFSH: Medical History Anxiety and depression GERD (gastroesophageal reflux disease) Hypertension Metabolic syndrome Sleep apnea Surgical History H/O tubal ligation History of hernia repair History of partial hysterectomy History of total left hip arthroplasty DOS: 04/22/2017 Dr. Bean History of total right hip arthroplasty Hx of appendectomy Family History Mother Family history of premature coronary artery disease Hypertension Brother Cancer Hypertension Sister Cancer Father Family history of premature coronary artery disease Hypertension Denies family history of Diabetes CAD (coronary artery disease) Clotting disorder Dementia Hyperlipidemia Psychiatric illness Chronic kidney disease (CKD) Suicide Anesthesia complication Bleeding disorder Lung disease Stroke Social History (Updated 01/20/20 @ 19:28 by Angelika Smith MD) Smoking and tobacco status: former smoker Quit status (tobacco): has quit using tobacco Former quit date comment: 4 years ago Second hand smoke exposure: No Alcohol intake: never Substance/Drug Use: never Adopted: No Caregiver/support person: Yes Lives independently: Yes Marital status: Single Current occupational status: employed 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 Vitals/I&O/Wt Last Vital Signs Temp 97.1 F L 01/20/20 15:18 Pulse 104 H 01/20/20 17:55 Resp 22 H 01/20/20 17:55 BP 155/81 01/20/20 17:55 Pulse Ox 98 01/20/20 17:55 Weight last 48 hrs Weight 86.183 kg Physical Exam Const: COMMON NORMALS: no acute distress, patient oriented x3 and alert GENERAL APPEARANCE: cooperative and anxious NUTRITIONAL APPEARANCE: obese morbidly obese ORIENTATION/CONSCIOUSNESS: Yes awake HENMT: COMMON NORMALS: normocephalic, atraumatic, hearing grossly normal bilaterally and moist oral mucous membranes HEAD & SCALP: normocephalic and atraumatic Eye: COMMON NORMALS: Equal, round and reactive pupils present, EOMs intact bilaterally and conjunctivae normal CONJUNCTIVA: Yes conjunctivae normal PUPIL: Yes Equal, round and reactive pupils present Neck/C-Spine: COMMON NORMALS: full ROM GENERAL: Yes normal visual inspection and Yes trachea midline Resp: COMMON NORMALS: normal respiratory effort, No retractions and No use of accessory muscles EFFORT & INSPECTION: Yes able to speak in complete sentences, Yes symmetric chest movement and No tachypneic AUSCULTATION: diminished lung sounds (bilateral bases) OTHER: -on RA Cardio: COMMON NORMALS: regular rate, regular rhythm, S1 normal heart sound present, S2 normal heart sound present and No murmurs present (Cardio) RATE: regular rate RHYTHM: regular rhythm HEART SOUNDS: S1 normal heart sound present and S2 normal heart sound present GI: COMMON NORMALS: Normal to inspection, nondistended, normoactive bowel sounds present, Soft to palpation and non-tender INSPECTION: Yes central obesity PALPATION: Yes Soft to palpation : BLADDER/KIDNEY EXAM: Yes catheter in place Catheter type (Female): urethral Extremity: COMMON NORMALS: normal to inspection, full ROM and no clubbing, cyanosis or edema; negative for no pedal edema Neuro: COMMON NORMALS: patient oriented x3, moves all extremities, no focal motor deficits and no sensory deficits noted SENSORIUM/ORIENTATION: Yes alert Psych: COMMON NORMALS: mental status grossly normal, Normal thought process present, cooperative and speech normal SPEECH: Yes normal speech MOOD & AFFECT: Yes anxious THOUGHT PROCESS: Normal thought process present Skin: COMMON NORMALS: no rashes or lesions noted, no jaundice, no petechiae and no mottling GENERAL SKIN EXAM: no rashes or lesions noted Urinary Catheter Management^: Stewart: Cath Placed During This Visit: yes Reason for Continuing Indwelling Catheter: Accurate Measurement of Urinary Output in Critically Ill Patients Urinary Catheter Date of Insertion: 01/20/20 Urinary Catheter Time of Insertion: 17:12 Data : 01/20/20 15:40 01/20/20 15:40 A&P Assessment and plan (1) Acute exacerbation of CHF (congestive heart failure): -Presented with complaints of shortness of breath particularly with exertion, acute onset -Noted to have BNP elevation (759), noted evidence of fluid overload on imaging; does not appear overtly fluid overloaded other than noted dyspnea -previous Echo (2018): EF=50%, mild LVH, trace MR; order repeat Echo for re- evaluation of EF -received 40 mg dose of IV lasix with 3 L output, continue IV diuresis -has Stewart catheter in place, monitor Is & Os -monitor renal function, lytes -telemetry monitoring -monitor vital signs -monitor supplemental oxygen Status: Acute Qualifiers: Heart failure type: diastolic Qualified Code(s): I50.33 - Acute on chronic diastolic (congestive) heart failure (2) Viral pneumonitis: -Viral pneumonitis noted on CT chest -Has had contact with known COVID-19 positive individual though this was almost a month ago -Rapid testing negative, due to exposure and CT findings will send PCR -Isolation precautions -Received IV steroids in ER, will switch to oral steroids -Start on empiric azithromycin due to noted underlying emphysema -Supplemental oxygen as needed, close monitoring of respiratory status -Noted ABG which is appropriate, done on room air -Noted d-dimer elevation, negative PE, negative DVT Status: Acute (3) Anxiety and depression: -Low threshold for anxiety -Anxiolytics as needed Status: Chronic (4) Hypertension: -Hypertensive in ED -not on antihypertensives per med rec -start on low dose ACEi, hydralazine PRN -continue to monitor vital signs Status: Chronic Qualifiers: Hypertension type: essential hypertension Qualified Code(s): I10 - Essential (primary) hypertension (5) Mass of right knee: -noted to have solid mass posterior to the right knee with internal vascularity, MRI with and without contrast ordered for further evaluation as per radiology report this may be concerning for neoplasm Status: Acute (6) Shoulder pain, left: -Significant left shoulder pain, had a fall in ED -Shoulder x-ray negative for any fractures but due to pain, decreased range of motion will order CT -Noted osteopenia and moderate DJD -Fall precautions, pain control as needed -PT/OT evaluations in a.m. Status: Acute Qualifiers: Chronicity: acute Qualified Code(s): M25.512 - Pain in left shoulder (7) YOLY on CPAP: -order CPAP qhs Status: Chronic Additional A&P Information -Morbid obesity: BMI-33 kg/m2 -GERD: resume PPI -cardiac diet as tolerated -GI ppx with PPI -DVT ppx with lovenox -Dispo: home -Code status: FULL code -ICU admission due to need for isolation precautions pending COVID r/o Attestations Medical Necessity Statement*: Dennise Funes's hospital stay will require greater than 2 midnights for management of viral pneumonitis, acute CHF exacerbation, on IV diuresis, needs close monitoring of hemodynamic and respiratory status as well as COVID-19 rule out. Time Spent in Patient Care: Greater than 35 minutes (>than 50% of time spen t in counselling and/or direct pt care on unit) . Coding Level of Care Code Acute Java Oracle Developer for Chg Fwd Diagnoses Acute exacerbation of CHF (congestive heart failure) I50.33 Heart failure type: diastolic Viral pneumonitis J12.9 Anxiety and depression F41.9; F32.9 Hypertension I10 Hypertension type: essential hypertension Mass of right knee R22.41 Shoulder pain, left M25.512 Chronicity: acute YOLY on CPAP G47.33; Z99.89
[2020-01-20] MEDS: morphine 4 mg/mL SDV 1 mL IVP (19:16)
--- NOTE | 2020-01-20 21:18 | CTR_ITS ---
PROCEDURE INFORMATION: Exam: CT Left Upper Extremity Without Contrast, Shoulder Exam date and time: 01/20/2020 9:32 PM Age: 64 years old Clinical indication: Injury or trauma; Initial encounter; Blunt trauma (contusions or hematomas; Left; Patient HX: C/O L shoulder pain w limited rom after fall this evening; Additional info: Significant pain, decreased rom TECHNIQUE: Imaging protocol: CT of the Left upper extremity without contrast was performed. Exam focused on the shoulder. Radiation optimization: All CT scans at this facility use at least one of these dose optimization techniques: automated exposure control; mA and/or kV adjustment per patient size (includes targeted exams where dose is matched to clinical indication); or iterative reconstruction. COMPARISON: CR XR shoulder LT min 2V* [id number] 01/20/2020 5:14 PM RADIATION DOSE METRICS: Total DLP (mGy-cm): 1216.37 FINDINGS: Bones/joints: There is no acute fracture or dislocation. There are mild degenerative changes of the acromioclavicular and glenohumeral joints. No acute rib fracture. Soft tissues: No soft tissue fluid collection. Lungs: There is dependent atelectasis. CT/CT shoulder LT wo con* [id number] IMPRESSION: No acute bony abnormality. Radiation Dose CTDIVOL = (mGy): DLP = 1216.37 (mGy-cm)
[2020-01-20] MEDS: enoxaparin 40 mg/0.4 mL Syringe SUBCUT (21:29)
[2020-01-20] MEDS: azithromycin 500 MG in sodium chloride 0.9% 250 ML 250 MG IV (22:26)
[2020-01-20 22:33] LABS: Troponin 5 6HR 9.39 ng/L (0-10); Troponin 5 6HR Delta 1.39 ng/L (0-12)
[2020-01-20] MEDS: HYDROcodone-acetaminophen 5-325 mg Tablet 1 TAB PO (22:33)
[2020-01-20] MEDS: LORazepam 2 mg/mL INJ 1 mL 1 MG IVP (22:33)
[2020-01-20] MEDS: albuterol 8 gm MDI 2 PUFF INHALATION (23:27)
[2020-01-21] VITALS (38 sets, daily range): BP systolic 93–166; BP diastolic 50–110; PULSE 73–103; RESP 14–28; TEMP 36.6–37.2; O2SAT 88–98; BMI 22.3
[2020-01-21] MEDS: HYDROcodone-acetaminophen 5-325 mg Tablet 1 TAB PO ×3 (02:51→14:41)
[2020-01-21] MEDS: hyDROXYzine 25 mg Capsule PO (04:14)
[2020-01-21 04:54] LABS: Eosinophils % 0.2 %; Hematocrit 39.7 % (37.0-47.0); Hemoglobin 12.3 g/dL (11.5-15.3); Lymphocytes # 0.8 10^3/uL (0.8-4.8); Lymphocytes % 12.8 %; Mean Corpuscular Hemoglobin 30.2 pg (28.0-34.0); Mean Corpuscular Volume 97.5 fL (81-99); Mean Platelet Volume 10.9 fL (7.4-10.4); Monocytes # 0.1 10^3/uL (0.2-0.9); Monocytes % 1.5 %; Neutrophils # 5.28 10^3/uL (1.8-7.7); Neutrophils % 85.2 %; Nucleated Red Blood Cells % 0 %; Platelet Count 171 10^3/cmm (130-400); Red Blood Count 4.07 10^6/uL (4.1-5.3); Red Cell Distribution Width 13.7 % (12.1-15.1); White Blood Count 6.2 10^3/uL (4.0-10.0)
[2020-01-21] MEDS: LORazepam 2 mg/mL INJ 1 mL 1 MG IVP ×3 (05:11→21:32)
[2020-01-21 05:23] LABS: Blood Urea Nitrogen 20 mg/dL (8-23); Calcium 9.3 mg/dL (8.5-10.5); Carbon Dioxide 20 mmol/L (22-29); Chloride 103 mmol/L (98-107); Glomerular Filtration Rate 72.4 mL/min (90-130); Glucose 135 mg/dL (65-115); Osmolality Calculated 285 mOsm/kg (285-295); Sodium 138 mmol/L (136-145)
[2020-01-21 05:25] LABS: Anion Gap 19.3 (5-19); Potassium 4.3 mmol/L (3.5-5.1)
[2020-01-21] MEDS: duloxetine 30 mg Capsule PO (08:30)
[2020-01-21] MEDS: predniSONE 20 mg Tablet 40 MG PO (08:30)
[2020-01-21] MEDS: lisinopril 5 mg Tablet PO (08:31)
[2020-01-21] MEDS: FUROsemide 10 mg/mL SDV 4mL 40 MG IVP (08:31)
[2020-01-21] MEDS: pneumococcal (23 valent) SDV 0.5 mL IM (08:31)
[2020-01-21] MEDS: tamsulosin 0.4 mg Capsule PO (08:31)
[2020-01-21] MEDS: pantoprazole DR 40 mg Tablet PO ×2 (08:31→17:12)
--- NOTE | 2020-01-21 12:50 | PC.OT ---
OT/PT orders received to evaluate and treat. Therapies are awaiting results of COVID testing before proceeding with evaluations.
[2020-01-21] MEDS: morphine 4 mg/mL SDV 1 mL 2 MG IVP (18:02)
--- NOTE | 2020-01-21 18:05 | PM.PN ---
Subjective Subjective: Interval history: no acute event overnight.Hemodynamics stable.C.T of shoulder joint failed to show any fracture or dislocation. Medications: Reviewed: Yes Vitals/I&O/Wt Last Vital Signs Temp 99.0 F 01/21/20 16:00 Pulse 98 01/21/20 17:00 Resp 26 H 01/21/20 18:02 BP 166/73 01/21/20 17:00 Pulse Ox 96 01/21/20 18:02 01/21/20 01/21/20 01/21/20 06:59 14:59 22:59 Intake Total 200 / 700 1330 / 1330 600 / 1930 Output Total 400 / 3400 1200 / 1200 Balance -200 / -2700 1330 / 1330 -600 / 730 Weight last 48 hrs Weight 59.08 kg Weight 86.183 kg Physical Exam Const: COMMON NORMALS: patient oriented x3 HENMT: COMMON NORMALS: normocephalic, atraumatic, hearing grossly normal bilaterally and external ears normal HEAD & SCALP: normocephalic and atraumatic EXTERNAL EAR: Yes external ears normal Eye: COMMON NORMALS: no scleral icterus GENERAL EYE: appearance normal, both eyes and all related structures Chest: COMMONS NORMALS: normal inspection of the chest and normal palpation of entire chest wall CHEST: Yes Symmetrical chest wall rise Resp: COMMON NORMALS: normal respiratory effort, No retractions, No use of accessory muscles and clear to auscultation bilaterally EFFORT & INSPECTION: Yes symmetric chest movement AUSCULTATION: clear to auscultation bilaterally Cardio: COMMON NORMALS: regular rate, regular rhythm, S1 normal heart sound present, S2 normal heart sound present, No gallops present (Cardio), No murmurs present (Cardio), No rub (Cardio) and Peripheral pulses 2+ throughout RATE: regular rate RHYTHM: regular rhythm HEART SOUNDS: S1 normal heart sound present and S2 normal heart sound present PERIPHERAL PULSES: Peripheral pulses 2+ throughout GI: COMMON NORMALS: Normal to inspection, nondistended, normoactive bowel sounds present, Soft to palpation, non-tender, No hepatosplenomegaly present and no masses AUSCULTATION: Yes normoactive bowel sounds PALPATION: Yes Soft to palpation and Yes No hepatosplenomegaly present RECTAL EXAM: deferred : COMMON NORMALS: Yes no CVA tenderness BLADDER/KIDNEY EXAM: Yes no CVA tenderness Back/Pelvis: COMMON NORMALS: no CVA tenderness Extremity: COMMON NORMALS: no clubbing, cyanosis or edema and no pedal edema Neuro: COMMON NORMALS: patient oriented x3 Urinary Catheter Management^: Stewart: Cath Placed During This Visit: yes Reason for Continuing Indwelling Catheter: Accurate Measurement of Urinary Output in Critically Ill Patients Urinary Catheter Date of Insertion: 01/20/20 Urinary Catheter Time of Insertion: 17:12 Data : 01/21/20 04:17 01/21/20 04:17 A&P Assessment and plan (1) Viral pneumonitis: Viral pneumonitis noted on CT chest -Has had contact with known COVID-19 positive individual though this was almost a month ago -Rapid testing negative, due to exposure and CT findings will send PCR -Isolation precautions -Received IV steroids in ER, will switch to oral steroids -Start on empiric azithromycin due to noted underlying emphysema -Supplemental oxygen as needed, close monitoring of respiratory status -Noted ABG which is appropriate, done on room air -Noted d-dimer elevation, negative PE, negative DVT (3) Anxiety and depression: Status: Acute (2) Acute exacerbation of CHF (congestive heart failure): Presented with complaints of shortness of breath particularly with exertion, acute onset -Noted to have BNP elevation (759), noted evidence of fluid overload on imaging; does not appear overtly fluid overloaded other than noted dyspnea -previous Echo (2018): EF=50%, mild LVH, trace MR; order repeat Echo for re-evaluation of EF -received 40 mg dose of IV lasix with 3 L output, continue IV diuresis -has Stewart catheter in place, monitor Is & Os -monitor renal function, lytes -telemetry monitoring -monitor vital signs -monitor supplemental oxygen Status: Acute Qualifiers: Heart failure type: diastolic Qualified Code(s): I50.33 - Acute on chronic diastolic (congestive) heart failure (3) Hypertension: -Hypertensive in ED -not on antihypertensives per med rec -start on low dose ACEi, hydralazine PRN -continue to monitor vital signs Status: Chronic Qualifiers: Hypertension type: essential hypertension Qualified Code(s): I10 - Essential (primary) hypertension (4) Shoulder pain, left: -Significant left shoulder pain, had a fall in ED -Shoulder x-ray negative for any fractures CT: No acute pathology -Fall precautions, pain control as needed Status: Acute Qualifiers: Chronicity: acute Qualified Code(s): M25.512 - Pain in left shoulder (5) Mass of right knee: noted to have solid mass posterior to the right knee with internal vascularity, MRI with and without contrast ordered for further evaluation as per radiology report this may be concerning for neoplasm. Status: Acute (6) YOLY on CPAP: -order CPAP qhs Status: Chronic Attestations Medical Necessity Statement*: Needs Heart failure optimization and r/o COVID Coding Level of Care Code Acute Commercial Sales Manager for Chg Fwd Exam Comprehensive Diagnoses Viral pneumonitis J12.9 Acute exacerbation of CHF (congestive heart failure) I50.33 Heart failure type: diastolic Hypertension I10 Hypertension type: essential hypertension Shoulder pain, left M25.512 Chronicity: acute Mass of right knee R22.41 YOLY on CPAP G47.33; Z99.89
[2020-01-21] MEDS: enoxaparin 40 mg/0.4 mL Syringe SUBCUT (21:31)
[2020-01-21] MEDS: azithromycin 500 MG in sodium chloride 0.9% 250 ML 250 MG IV (21:32)
[2020-01-22] VITALS (34 sets, daily range): BP systolic 122–166; BP diastolic 51–89; PULSE 59–102; RESP 14–24; TEMP 36.7–36.9; O2SAT 87–98
[2020-01-22] MEDS: albuterol 8 gm MDI 2 PUFF INHALATION (08:27)
[2020-01-22] MEDS: duloxetine 30 mg Capsule PO (09:08)
[2020-01-22] MEDS: pantoprazole DR 40 mg Tablet PO ×2 (09:09→18:08)
[2020-01-22] MEDS: lisinopril 5 mg Tablet PO (09:10)
[2020-01-22] MEDS: tamsulosin 0.4 mg Capsule PO (09:10)
[2020-01-22] MEDS: predniSONE 20 mg Tablet 40 MG PO (09:10)
[2020-01-22] MEDS: FUROsemide 10 mg/mL SDV 4mL 40 MG IVP (09:10)
[2020-01-22] MEDS: HYDROcodone-acetaminophen 5-325 mg Tablet 1 TAB PO ×3 (09:30→21:47)
--- NOTE | 2020-01-22 11:03 | PM.PN ---
Subjective Subjective: Interval history: no acute event overnight.Hemodynamics stable.COVID RT-PCR came negative. She is tolerating feeds well. We will move her to regular medical floor from ICU. Medications: Reviewed: Yes Vitals/I&O/Wt Last Vital Signs Temp 98.0 F 01/22/20 08:00 Pulse 88 01/22/20 09:00 Resp 21 H 01/22/20 09:00 BP 165/70 01/22/20 08:00 Pulse Ox 90 01/22/20 10:00 01/21/20 01/22/20 01/22/20 22:59 06:59 14:59 Intake Total 850 / 2180 360 / 360 Output Total 1200 / 1200 725 / 1925 Balance -350 / 980 -725 / 255 360 / 360 Weight last 48 hrs Weight 70.052 kg Weight 59.08 kg Weight 86.183 kg Physical Exam Const: COMMON NORMALS: patient oriented x3 HENMT: COMMON NORMALS: normocephalic, atraumatic, hearing grossly normal bilaterally and external ears normal HEAD & SCALP: normocephalic and atraumatic EXTERNAL EAR: Yes external ears normal Eye: COMMON NORMALS: no scleral icterus GENERAL EYE: appearance normal, both eyes and all related structures Chest: COMMONS NORMALS: normal inspection of the chest and normal palpation of entire chest wall CHEST: Yes Symmetrical chest wall rise Resp: COMMON NORMALS: normal respiratory effort, No retractions, No use of accessory muscles and clear to auscultation bilaterally EFFORT & INSPECTION: Yes symmetric chest movement AUSCULTATION: clear to auscultation bilaterally Cardio: COMMON NORMALS: regular rate, regular rhythm, S1 normal heart sound present, S2 normal heart sound present, No gallops present (Cardio), No murmurs present (Cardio), No rub (Cardio) and Peripheral pulses 2+ throughout RATE: regular rate RHYTHM: regular rhythm HEART SOUNDS: S1 normal heart sound present and S2 normal heart sound present PERIPHERAL PULSES: Peripheral pulses 2+ throughout GI: COMMON NORMALS: Normal to inspection, nondistended, normoactive bowel sounds present, Soft to palpation, non-tender, No hepatosplenomegaly present and no masses AUSCULTATION: Yes normoactive bowel sounds PALPATION: Yes Soft to palpation and Yes No hepatosplenomegaly present RECTAL EXAM: deferred : COMMON NORMALS: Yes no CVA tenderness BLADDER/KIDNEY EXAM: Yes no CVA tenderness Back/Pelvis: COMMON NORMALS: no CVA tenderness Extremity: COMMON NORMALS: no clubbing, cyanosis or edema and no pedal edema Neuro: COMMON NORMALS: patient oriented x3 Urinary Catheter Management^: Stewart: Cath Placed During This Visit: yes Reason for Continuing Indwelling Catheter: Accurate Measurement of Urinary Output in Critically Ill Patients Urinary Catheter Date of Insertion: 01/20/20 Urinary Catheter Time of Insertion: 17:12 Data : 01/22/20 13:18 01/22/20 13:18 A&P Assessment and plan (1) Viral pneumonitis: Viral pneumonitis noted on CT chest -Has had contact with known COVID-19 positive individual though this was almost a month ago -Rapid testing negative, as well RT PCR is negative. -Isolation precautions is removed. -Received IV steroids in ER, will switch to oral steroids -Start on empiric azithromycin due to noted underlying emphysema -Supplemental oxygen as needed, close monitoring of respiratory status -Noted ABG which is appropriate, done on room air -Noted d-dimer elevation, negative PE, negative DVT (3) Anxiety and depression: Status: Acute (2) Acute exacerbation of CHF (congestive heart failure): Presented with complaints of shortness of breath particularly with exertion, acute onset -Noted to have BNP elevation (759), noted evidence of fluid overload on imaging; does not appear overtly fluid overloaded other than noted dyspnea -previous Echo (2018): EF=50%, mild LVH, trace MR; order repeat Echo for re-evaluation of EF -received 40 mg dose of IV lasix with 3 L output, continue IV diuresis -has Stewart catheter in place, monitor Is & Os -monitor renal function, lytes -telemetry monitoring -monitor vital signs -monitor supplemental oxygen Status: Acute Qualifiers: Heart failure type: diastolic Qualified Code(s): I50.33 - Acute on chronic diastolic (congestive) heart failure (3) Hypertension: -Hypertensive in ED -not on antihypertensives per med rec -start on low dose ACEi, hydralazine PRN -continue to monitor vital signs Status: Chronic Qualifiers: Hypertension type: essential hypertension Qualified Code(s): I10 - Essential (primary) hypertension (4) Shoulder pain, left: -Significant left shoulder pain, had a fall in ED -Shoulder x-ray negative for any fractures CT: No acute pathology -Fall precautions, pain control as needed Status: Acute Qualifiers: Chronicity: acute Qualified Code(s): M25.512 - Pain in left shoulder (5) Mass of right knee: noted to have solid mass posterior to the right knee with internal vascularity, MRI with and without contrast ordered for further evaluation as per radiology report this may be concerning for neoplasm. Status: Acute (6) YOLY on CPAP: -order CPAP qhs Status: Chronic Additional A&P Information -Morbid obesity: BMI-33 kg/m2 -GERD: resume PPI -cardiac diet as tolerated -GI ppx with PPI -DVT ppx with lovenox -Dispo: home -Code status: FULL code Attestations Medical Necessity Statement*: Patient need continued hospital stay for management of viral pneumonitis as well as CHF exacerbation. Coding Level of Care Code Acute [employer] Par[employer] Manager for g Fwd Exam Comprehensive Diagnoses Viral pneumonitis J12.9 Acute exacerbation of CHF (congestive heart failure) I50.33 Heart failure type: diastolic Hypertension I10 Hypertension type: essential hypertension Shoulder pain, left M25.512 Chronicity: acute Mass of right knee R22.41 YOLY on CPAP G47.33; Z99.89
[2020-01-22 13:41] LABS: Basophils % 0.1 %; Eosinophils # 0.1 10^3/uL (0.0-0.8); Eosinophils % 0.5 %; Hematocrit 39.3 % (37.0-47.0); Hemoglobin 12.8 g/dL (11.5-15.3); Lymphocytes # 1.3 10^3/uL (0.8-4.8); Lymphocytes % 13.3 %; Mean Corpuscular HGB Conc 32.6 g/dL (30.0-36.0); Mean Corpuscular Volume 92.3 fL (81-99); Mean Platelet Volume 10.4 fL (7.4-10.4); Monocytes # 0.3 10^3/uL (0.2-0.9); Monocytes % 3.4 %; Neutrophils # 7.89 10^3/uL (1.8-7.7); Neutrophils % 82.4 %; Nucleated Red Blood Cells % 0 %; Platelet Count 277 10^3/cmm (130-400); Red Blood Count 4.26 10^6/uL (4.1-5.3); Red Cell Distribution Width 13.6 % (12.1-15.1); White Blood Count 9.6 10^3/uL (4.0-10.0)
[2020-01-22 13:56] LABS: Blood Urea Nitrogen 31 mg/dL (8-23); Calcium 8.9 mg/dL (8.5-10.5); Carbon Dioxide 24 mmol/L (22-29); Chloride 99 mmol/L (98-107); Glomerular Filtration Rate 63.2 mL/min (90-130); Glucose 135 mg/dL (65-115); Osmolality Calculated 281 mOsm/kg (285-295); Sodium 136 mmol/L (136-145)
[2020-01-22 14:00] LABS: Anion Gap 17.7 (5-19); Potassium 4.7 mmol/L (3.5-5.1)
--- NOTE | 2020-01-22 14:18 | PC.NURSE ---
Pt is noted to have a lump that feels fluid filled under the right arm very similar to that one on her right knee. Dr. Gaxiola notified. MRI scheduled for tomorrow at 10:15. transportation set up.
[2020-01-22 15:38] LABS: Coronavirus Lab Test PTC Negative
--- NOTE | 2020-01-22 16:55 | PC.NURSE ---
Pt's sister , Alberta Mcgrath, called stated family went to pt's house and found a trash can with vomit and pill bottles, and the suicide note. Family member was going to bring it up to hospital.
--- NOTE | 2020-01-22 17:45 | PC.NURSE ---
Received pill bottles, suicide note and bag from trash can (with pill bottles) from [facility]. Suicide note and pill bottles shown to Dr Gaxiola. Suicide note placed in paper chart. Pill bottles received from [facility]: Flonase nasal spray with minimal amount of liquid noted. Empty bottle , Alprazolam 0.25mg , 60 filled last year, Empty bottle of Cyclobenzaprine 10MG 60 filled 12/08/2019, bottle of 129 tablets Cyclobenzaprine 10mg filled on 07/05/2019 with 40 tablets. Tramadol 1 tablet in bottle, [id number] , filled 12. Found in trash can: Empty bottles: Levetiracetam 500mg,60 but marked out, 6 handwritten filled on 12/08/19 Propanolol 20mg,60 filled on 12/08/19. Alprazolam 0.25mg, 60 filled on 12/05/2019. Prescription receipts from [facility]: Atorvastatin 20mg filled 01/18/20 Propanolol 20mg filled 01/18/20 Citalopram 20mg filled 01/17/2020 Alprazolam 0.25mg filled on 01/17/2020. Trash bag full of items disposed of. The clean bottles provided by family are bagged up and placed in ICU Pyxis.
--- NOTE | 2020-01-22 18:46 | PC.PT ---
PT note; nursing states patient ambulating and transferring independently in room without difficulty, and demonstrating good safety awareness, but does have right shoulder injury arising from fall, being addressed by occupational therapy; PT intervention not indicated at this time.
[2020-01-22] MEDS: morphine 4 mg/mL SDV 1 mL 2 MG IVP (19:36)
[2020-01-22] MEDS: LORazepam 2 mg/mL INJ 1 mL 1 MG IVP (19:37)
--- NOTE | 2020-01-22 21:18 | USCV_ITS ---
Dennise Funes Age: 64 Gender: F : 1955 Exam Date: 01/22/2020 08:45 Ordering Phys: Angelika Smith MD Technologist: Rasheed Gallagher Exam Location: [facility] – [place] Indication: CHF BP: 165 / 70 HR: 76 Rhythm: Sinus Technical Quality: Suboptimal MEASUREMENTS (Male / Female) Normal Values 2D ECHO LV Diastolic Diameter PLAX 3.5 cm 4.2 - 5.9 / 3.9 - 5.3 cm LV Systolic Diameter PLAX 3.1 cm IVS Diastolic Thickness 1.0 cm 0.6 - 1.0 / 0.6 - 0.9 cm IVS Systolic Thickness 1.5 cm LVPW Diastolic Thickness 1.0 cm 0.6 - 1.0 / 0.6 - 0.9 cm LVPW Systolic Thickness 1.4 cm LVOT Diameter 2.1 cm LV Ejection Fraction 2D Teich 29.3 % LV Ejection Fraction MOD 2C 65.6 % LV Ejection Fraction 2C AL 64.9 % LA Diameter 3.8 cm LA Width 3.2 cm LA Height 4.3 cm RA Width 3.5 cm RA Height 4.6 cm Aorta at Sinotubular Diameter 0.8 cm M-MODE LV Diastolic Diameter MM 4.8 cm 4.2 - 5.9 / 3.9 - 5.3 cm LV Systolic Diameter MM 3.1 cm LV Ejection Fraction MM Teich 65.1 % IVS Diastolic Thickness MM 0.8 cm 0.6 - 1.0 / 0.6 - 0.9 cm IVS Systolic Thickness MM 1.2 cm LVPW Diastolic Thickness MM 1.2 cm 0.6 - 1.0 / 0.6 - 0.9 cm LVPW Systolic Thickness MM 1.6 cm RV Diastolic Diameter MM 1.1 cm Aortic Annulus Diameter 3.4 cm LA Ao Ratio MM 1.1 MV E Point Septal Separation 1.3 cm DOPPLER AV Peak Velocity 204.0 cm/s LVOT Peak Velocity 121.0 cm/s AV Area Cont Eq vti 2.1 cm squared AV Area Cont Eq pk 2.0 cm squared MV Area PHT 5.0 cm squared Mitral E to A Ratio 0.9 MV E' Velocity 10.0 cm/s Mitral E to MV E' Ratio 10.9 Mitral E to LV E' Lateral Ratio 8.5 Mitral E to LV E' Septal Ratio 15.5 TR Peak Velocity 188.0 cm/s TR Peak Gradient 14.1 mmHg TV Peak E Velocity 88.0 cm/s Right Atrial Pressure 3.0 mmHg Pulmonary Artery Systolic Pressu 17.1 mmHg PV Peak Velocity 94.0 cm/s FINDINGS Left Ventricle LV size with slightly diminished ejection fraction of 50%. Mild diffuse hypokinesia of the septum and inferior wall segmentsGrade I/IV diastolic dysfunction (abnormal relaxation filling pattern), normal to mildly elevated filling pressures. Right Ventricle Normal right ventricular size and systolic function. Right Atrium Sibling normal right atrial size Left Atrium Mildly increased left atrial size. Mitral Valve Thickened mitral valve with moderate mitral annular calcification. Trace mitral valve regurgitation. Aortic Valve Thickened aortic valve. Tricuspid Valve No significant tricuspid regurgitation Pulmonic Valve Pulmonic valve not well visualized. Pericardium No pericardial effusion. Aorta Normal aortic annulus size. CONCLUSIONS 1. Normal LV size with slightly diminished ejection fraction of 50%. Mild diffuse hypokinesia of the septum and inferior wall segment . Grade I/IV diastolic dysfunction (abnormal relaxation filling pattern), normal to mildly elevated filling pressures. 2. Mildly increased left atrial size. 3. Thickened mitral valve with moderate mitral annular calcification. Trace mitral valve regurgitation. 4. Features of aortic valve sclerosis 5. There is no pericardial effusion. There are no intracardiac masses. Dr Iftikhar Bradley MD FACC (Electronically Signed) Final Date: 22 January 2020 18:40 S
--- NOTE | 2020-01-22 22:12 | PC.NURSE ---
Patient transferred to bed 252-1. Report given to Ursula. Patient transferred with belongings, CPAP machine, and staff at bedside. Nurse Ursula assumed care of patient at that time.
[2020-01-22] MEDS: enoxaparin 40 mg/0.4 mL Syringe SUBCUT (23:50)
[2020-01-22] MEDS: azithromycin 500 MG in sodium chloride 0.9% 250 ML 250 MG IV (23:51)
[2020-01-23] VITALS (9 sets, daily range): BP systolic 120–132; BP diastolic 64–82; PULSE 71–94; RESP 16–20; TEMP 36.4–36.8; O2SAT 93–97
[2020-01-23] MEDS: LORazepam 2 mg/mL INJ 1 mL 1 MG IVP ×2 (02:22→23:34)
[2020-01-23] MEDS: HYDROcodone-acetaminophen 5-325 mg Tablet 1 TAB PO ×3 (02:22→23:31)
[2020-01-23 05:58] LABS: Basophils % 0.3 %; Eosinophils % 0.1 %; Hematocrit 37.5 % (37.0-47.0); Hemoglobin 11.9 g/dL (11.5-15.3); Lymphocytes # 2.5 10^3/uL (0.8-4.8); Lymphocytes % 35.1 %; Mean Corpuscular HGB Conc 31.7 g/dL (30.0-36.0); Mean Corpuscular Hemoglobin 29.6 pg (28.0-34.0); Mean Corpuscular Volume 93.3 fL (81-99); Mean Platelet Volume 10.4 fL (7.4-10.4); Monocytes # 0.4 10^3/uL (0.2-0.9); Monocytes % 5.7 %; Neutrophils # 4.08 10^3/uL (1.8-7.7); Neutrophils % 58.5 %; Nucleated Red Blood Cells % 0 %; Platelet Count 291 10^3/cmm (130-400); Red Blood Count 4.02 10^6/uL (4.1-5.3); Red Cell Distribution Width 13.4 % (12.1-15.1)
[2020-01-23 06:29] LABS: Anion Gap 12.8 (5-19); Blood Urea Nitrogen 26 mg/dL (8-23); Calcium 8.7 mg/dL (8.5-10.5); Carbon Dioxide 28 mmol/L (22-29); Chloride 102 mmol/L (98-107); Glomerular Filtration Rate 72.4 mL/min (90-130); Glucose 96 mg/dL (65-115); Osmolality Calculated 285 mOsm/kg (285-295); Potassium 3.8 mmol/L (3.5-5.1); Sodium 139 mmol/L (136-145)
[2020-01-23] MEDS: predniSONE 20 mg Tablet 40 MG PO (09:50)
[2020-01-23] MEDS: pantoprazole DR 40 mg Tablet PO ×2 (09:50→16:33)
[2020-01-23] MEDS: duloxetine 30 mg Capsule PO (09:50)
[2020-01-23] MEDS: lisinopril 5 mg Tablet PO (09:50)
[2020-01-23] MEDS: acetaminophen 325 mg Tablet 650 MG PO (10:01)
--- NOTE | 2020-01-23 10:15 | MR_ITS ---
WS: [id number] MRI RIGHT KNEE NONCONTRAST AND CONTRAST TECHNIQUE: Axial PD, coronal PD fat sat, coronal PD, sagittal PD, and sagittal PD fat-sat images obta ined. CLINICAL INFORMATION: abnormal mass on posterior R knee COMPARISON: Ultrasound venous January 20, 2020 FINDINGS: T2 hyperintense lobulated lesion with low-grade internal enhancement measuring approximately 3.9 x 2. 2 x 2.8 cm with some internal cystic change and T1 hyperintensity. Findings are suspicious for neopla sm. Consider metastatic disease or nerve sheath tumor. This could be further evaluated with percutane ous biopsy or excision. This lesion abuts the Biceps femoris tendon just above and at the joint line. No edema in the underlying bone. Normal ACL and PCL. Distal quadriceps and patella tendons are intact. Hypertrophic patella. Chronic t hinning of the medial and lateral meniscus. Moderate chondromalacia patella. No subchondral edema. MR/MR knee RT wo/w con [id number] IMPRESSION: 1. T2 hyperintense lobulated enhancing lesion measuring 3.9 x 2.2 x 2.8 cm kristofer picious for neoplasm. Differential considerations include nerve sheath tumor garcía ch as schwannoma, metastatic disease, or less likely primary soft tissue sarcom a. Recommend further evaluation with biopsy or excision.
--- NOTE | 2020-01-23 10:36 | PC.OT ---
OT note: Attempted OT session this morning and pt soundly sleeping. When going to attempt again pt was taken off floor.
[2020-01-23] MEDS: FUROsemide 10 mg/mL SDV 4mL 40 MG IVP (12:16)
--- NOTE | 2020-01-23 14:58 | PM.PN ---
Subjective Subjective: Interval history: Dennise reports she is doing okay. Her left shoulder is hurting some. She wonders what to do about her right knee lesion that has been present at least several days. MRI was performed today and there was concern of malignancy. She denies any shortness of breath. Medications: Reviewed: Yes Vitals/I&O/Wt Last Vital Signs Temp 97.5 F L 01/23/20 11:40 Pulse 88 01/23/20 11:40 Resp 16 01/23/20 11:40 BP 126/64 01/23/20 11:40 Pulse Ox 94 01/23/20 11:40 01/22/20 01/23/20 01/23/20 22:59 06:59 14:59 Intake Total 340 / 920 600 / 600 Output Total 400 / 1800 Balance 340 / -480 -400 / -880 600 / 600 Weight last 48 hrs Weight 69.173 kg Weight 70.052 kg Physical Exam Narrative: EXAM NARRATIVE: General exam is no apparent distress Cardiovascular regular rate and rhythm without murmur Lungs clear but with diminished breath sounds bilaterally Abdomen is soft obese nontender with positive bowel sounds Right lower extremity with palpable mass right lower lateral thigh near knee Urinary Catheter Management^: Stewart: Cath Placed During This Visit: yes Reason for Continuing Indwelling Catheter: Assist Healing of Perineal & Sacral Wounds- Incontinent Patients Urinary Catheter Date of Insertion: 01/20/20 Urinary Catheter Time of Insertion: 17:12 Data : 01/23/20 04:40 01/23/20 04:40 A&P Assessment and plan (1) Viral pneumonitis: Pneumonitis, possibly viral Continue a azithromycin COVID testing rapid and PCR negative Currently on oral steroids Wean oxygen as tolerated Overall improving No pulmonary embolism by CTA Status: Acute (2) Acute exacerbation of CHF (congestive heart failure): Echo demonstrates EF of 50% diffuse hypokinesis of septum and inferior wall, trace MR Transition Lasix to oral Overall improved Discontinue Stewart Status: Acute Qualifiers: Heart failure type: diastolic Qualified Code(s): I50.33 - Acute on chronic diastolic (congestive) heart failure (3) Hypertension: Pressure acceptable. Currently on low-dose TARA inhibitor. Status: Chronic Qualifiers: Hypertension type: essential hypertension Qualified Code(s): I10 - Essential (primary) hypertension (4) Shoulder pain, left: CT shoulder negative Pain control Discussed with patient if remains painful could consider MRI as outpatient Status: Acute Qualifiers: Chronicity: acute Qualified Code(s): M25.512 - Pain in left shoulder (5) Mass of right knee: MRI concerning for malignancy. Biopsy to be performed tomorrow by ultrasound guidance, core biopsy Status: Acute (6) YOLY on CPAP: CPAP while sleeping Status: Chronic Additional A&P Information Obesity GERD Full code DVT prophylaxis with Lovenox but will hold for core ultrasound biopsy tomorrow Plan discharge tomorrow after biopsy if continues to do well. 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
[2020-01-23] MEDS: hyDROXYzine 25 mg Capsule PO (16:38)
--- NOTE | 2020-01-23 16:52 | PC.NURSE ---
Dr. Landers explained to chief writer that patient needed to try Tylenol for pain due to hydro having a higher fall risk. This am patient had Tylenol for pain, during writers rounding patient was resting in bed with eyes closed even and unlabored respirations. Staff moved pt to a private room for ultrasound bx scheduled for tomorrow at 1300, ultrasound called and asked for her to be NPO 2-4 hours before procedure. consent is signed and in the chart. chief writer was notified that pt was c/o pain to shoulder. chief writer brought pt Tylenol, patient refused Tylenol and insisted on having [place]. Pug Mill Operator explained that she is a high risk of falling, explained to pt to use call light when needing assistance and placed bed alarm on.
[2020-01-23] MEDS: albuterol 8 gm MDI 2 PUFF INHALATION ×2 (20:09→23:42)
[2020-01-23] MEDS: azithromycin 250 mg Tablet 500 MG PO (21:48)
[2020-01-23 21:55] LABS: Glucose Point of Care 96 mg/dL (70-110)
[2020-01-24] VITALS: BP 143/82; PULSE 82; RESP 18; TEMP 36.8; O2SAT 96
--- NOTE | 2020-01-24 00:13 | PC.NURSE ---
pt had episode of SOB tonight, paired with anxiety. ativan given and turned on 1lNC.
[2020-01-24 04:00] VITALS: BP 119/72; PULSE 73; RESP 20; TEMP 36.4; O2SAT 92
[2020-01-24] MEDS: HYDROcodone-acetaminophen 5-325 mg Tablet 1 TAB PO ×2 (04:32→13:11)
[2020-01-24 05:57] LABS: Basophils % 0.5 %; Eosinophils % 0.1 %; Hematocrit 39.3 % (37.0-47.0); Hemoglobin 12.4 g/dL (11.5-15.3); Lymphocytes # 2.6 10^3/uL (0.8-4.8); Lymphocytes % 32.9 %; Mean Corpuscular HGB Conc 31.6 g/dL (30.0-36.0); Mean Corpuscular Volume 95.2 fL (81-99); Mean Platelet Volume 10.1 fL (7.4-10.4); Monocytes # 0.5 10^3/uL (0.2-0.9); Neutrophils # 4.69 10^3/uL (1.8-7.7); Nucleated Red Blood Cells % 0 %; Platelet Count 281 10^3/cmm (130-400); Red Blood Count 4.13 10^6/uL (4.1-5.3); Red Cell Distribution Width 13.3 % (12.1-15.1); White Blood Count 7.8 10^3/uL (4.0-10.0)
[2020-01-24 06:33] LABS: Anion Gap 13.4 (5-19); Blood Urea Nitrogen 25 mg/dL (8-23); Calcium 8.7 mg/dL (8.5-10.5); Carbon Dioxide 27 mmol/L (22-29); Chloride 100 mmol/L (98-107); Glomerular Filtration Rate 72.4 mL/min (90-130); Glucose 129 mg/dL (65-115); Osmolality Calculated 283 mOsm/kg (285-295); Potassium 3.4 mmol/L (3.5-5.1); Sodium 137 mmol/L (136-145)
[2020-01-24 07:37] VITALS: BP 114/71; PULSE 74; RESP 18; TEMP 36.9; O2SAT 95
[2020-01-24] MEDS: predniSONE 20 mg Tablet 40 MG PO (08:26)
[2020-01-24] MEDS: FUROsemide 40 mg Tablet PO (08:26)
[2020-01-24] MEDS: duloxetine 30 mg Capsule PO (08:26)
[2020-01-24] MEDS: pantoprazole DR 40 mg Tablet PO (08:26)
[2020-01-24] MEDS: lisinopril 5 mg Tablet PO (08:26)
[2020-01-24] MEDS: hyDROXYzine 25 mg Capsule PO (08:30)
[2020-01-24] MEDS: potassium chloride ER 10 mEq Tablet 40 MEQ PO (10:13)
[2020-01-24] MEDS: LORazepam 2 mg/mL INJ 1 mL 1 MG IVP (10:55)
[2020-01-24] MEDS: acetaminophen 325 mg Tablet 650 MG PO (10:55)
[2020-01-24 11:00] VITALS: BP 164/71; PULSE 86; RESP 18; O2SAT 94
--- NOTE | 2020-01-24 11:22 | PC.SOCIAL ---
Pt Concerns Pt asked SS who she needs to talk to about an event in the ER. She said that she needed to get up & go to the bathroom, but when she sat up, she was dizzy. She said the nurse left her there sitting up on the side of the bed with the side rail down. Pt said when nurse was gone, she thought that she needed to lay down, & when she woke up she was in the floor. Pt said she doesn't feel like this was her(pt's) fault & wanted to know who she needs to talk to about this. She said I shouldn't have to pay for all the test since it wasn't my fault. Machine Farmworker told her that SS will contact Arlin with risk Management to have her come talk with her about her concerns. Pt said okay to this. Arlin With Risk Management has been notified
[2020-01-24 11:26] LABS: INR 0.88 (0.8-1.2)
--- NOTE | 2020-01-24 12:12 | PC.SOCIAL ---
Concerns Resolved Arlin Connors with Risk Management called back & said she went & seen pt & answered/resolved all of pt's concerns.
--- NOTE | 2020-01-24 14:53 | P.DS_ITS ---
Discharge Providers Date of Admission: 01/20/20 19:51 Date of Discharge: January 24, 2020 Attending Provider at Admission: Angelika Smith MD Attending Provider at Discharge: Jerzy Landers MD Primary Care Provider: Grzegorz Sanchez MD Diagnoses at Discharge Discharge Diagnosis (1) Viral pneumonitis: Status: Acute Problem details: Has finished appropriate course of a azithromycin (2) Acute exacerbation of CHF (congestive heart failure): Status: Acute Problem details: Has finished course of a azithromycin and steroids Qualifiers: Heart failure type: diastolic Qualified Code(s): I50.33 - Acute on chronic diastolic (congestive) heart failure (3) Hypertension: Status: Chronic Problem details: Lisinopril, Lasix added. Qualifiers: Hypertension type: essential hypertension Qualified Code(s): I10 - Essential (primary) hypertension (4) Shoulder pain, left: Status: Acute Problem details: Possible rotator cuff pathology. Given exercises, follow-up with primary. Qualifiers: Chronicity: acute Qualified Code(s): M25.512 - Pain in left shoulder (5) Mass of right knee: Status: Acute Problem details: Biopsy performed, results pending (6) YOLY on CPAP: Status: Chronic Reason for Visit Reason for Visit: right leg swelling Hospital Course Hospital Course: Safia is a 64-year-old white female who presented to the hospital short of breath. COVID testing was negative. Troponin not elevated. BNP slightly high. CTA with concern of pneumonitis. No pulmonary embolism was noted. She was initially started on a azithromycin, and steroids for possible COPD exacerbation and pneumonitis. Pneumonitis was documented as potentially viral on admission. Secondary to some fluid overload and elevated BNP she was given Lasix. With this treatment her breathing improved significantly. By January 23 she was on room air, and had been afebrile her entire hospital stay. White blood cell count was not elevated. Echocardiogram demonstrated an EF of 50%.. She was able to ambulate on room air oxygen and it was thought she could go home, with follow-up with cardiology for her diminished EF, and her primary care provider for concerns of COPD exacerbation, CHF, possible pneumonitis. Other issues that occurred while hospitalized was a fall, resulting in left shoulder pain. No fractures were noted on shoulder x-ray or CT. I discussed with her potential for MRI if this does not improve in the next 3 to 4 weeks. She will be following up with her primary regarding this. A mass was also found on the back of her right knee. MRI was concerning for possible malignancy. Therefore core biopsy was done by ultrasound on day of discharge. I discussed with the patient need for follow-up with her primary care provider and pathology. Physical Exam Narrative: EXAM NARRATIVE: General exam no apparent distress Cardiovascular regular rate and rhythm without murmur Lungs clear with diminished breath sounds bilaterally. No crackles or wheezing Abdomen is soft, positive bowel sounds Extremities no cyanosis clubbing or edema Urinary Catheter Management^: Stewart: Cath Placed During This Visit: yes, but has since been removed by the nurse Reason for Continuing Indwelling Catheter: Decision to DC Catheter Urinary Catheter Date of Insertion: 01/20/20 Urinary Catheter Time of Insertion: 17:12 Date Urinary Catheter Removed: 01/23/20 Time Urinary Catheter Discontinued: 10:00 Discharge Data Data Completed and Pending: Completed Studies During Hospitalization Category Date Time Status CT angio chest PE protcl [id number] Stat Cat Scan 01/20/20 16:[address] shoulder LT wo con* [id number] Urgent Cat Scan 01/20/20 21:18 Completed XR chest 1V kylee ble [id number] Stat Exams 01/20/20 15:26 Completed XR shoulder LT mi n 2V* [id number] Stat Exams 01/20/20 17:11 Com[place] RT wo/[place] [id number] Routine MRI 01/23/20 10:15 Completed CV echo complete* [id number] Routine Ultrasound 01/22/20 21:18 [place] [id number] Stat Ultrasound 01/20/20 15:25 Completed Pending at discharge Category Date Time Status Pathology: Surgic al [PTH] Routine Pth 01/24/20 13:59 Received US biopsy [id number] R outine Ultrasound 01/24/20 14:56 Taken Labs from last 24 hours 01/24/20 01/24/20 01/24/20 11:08 05:05 05:05 WBC 7.8 RBC 4.13 Hgb 12.4 Hct 39.3 MCV 95.2 MCH 30.0 MCHC 31.6 RDW 13.3 Plt Count 281 MPV 10.1 Neut % (Auto) 60.0 Lymph % (Auto) 32.9 [place] % (Auto) 6.0 Eos % (Auto) 0.1 Baso % (Auto) 0.5 Neut # (Auto) 4.69 Lymph # (Auto) 2.6 [place] # (Auto) 0.5 Eos # (Auto) 0.0 Baso # (Auto) 0.0 Nucleated RBC % (a uto) 0 Nucleated RBCs # 0.0 PT 12.20 INR 0.88 Sodium 137 Potassium 3.4 L Chloride 100 Carbon Dioxide 27 Anion Gap 13.4 BUN 25 H Creatinine 0.8 GFR Calculation 72.4 L Glucose 129 H POC Glucose Calculated Osmolal ity 283 L Calcium 8.7 01/23/20 21:51 WBC RBC Hgb Hct MCV MCH MCHC RDW Plt Count MPV Neut % (Auto) Lymph % (Auto) [place] % (Auto) Eos % (Auto) Baso % (Auto) Neut # (Auto) Lymph # (Auto) [place] # (Auto) Eos # (Auto) Baso # (Auto) Nucleated RBC % (a uto) Nucleated RBCs # PT INR Sodium Potassium Chloride Carbon Dioxide Anion Gap BUN Creatinine GFR Calculation Glucose POC Glucose 96 Calculated Osmolal ity Calcium Vitals: Last Vital Signs Temp 98.4 F 01/24/20 07:37 Pulse 86 01/24/20 11:00 Resp 18 01/24/20 11:00 BP 164/71 01/24/20 11:00 Pulse Ox 94 01/24/20 11:00 Discharge Plan Discharge Patient Disposition: Home Condition: Stable Prescriptions: New hydrocodone-acetaminophen 5-325 mg Tablet 1 tab PO Q4H PRN (Reason: Moderate Pain) Qty: 10 RF: 0 lisinopril 5 mg Tablet 5 mg PO DAILY Qty: 30 RF: 0 furosemide 40 mg Tablet 40 mg PO DAILY@0800 Qty: 30 RF: 0 potassium chloride 10 mEq capsule, extended release 10 meq PO DAILY Qty: 30 RF: 0 Continued pantoprazole [Protonix] 40 mg tablet,delayed release (DR/EC) 40 mg PO BID Qty: 180 RF: 3 albuterol sulfate [Ventolin HFA] 90 mcg/actuation HFA aerosol inhaler 2 puff INHALATION Q6H PRN (Reason: Shortness Of Breath) RF: 0 hydroxyzine pamoate 25 mg capsule See Rx Instructions .ROUTE .COMPLEX Qty: 90 RF: 5 duloxetine 30 mg capsule,delayed release(DR/EC) 30 mg PO DAILY Qty: 90 RF: 2 tamsulosin 0.4 mg capsule 0.4 mg PO DAILY Qty: 30 RF: 3 Discontinued naproxen sodium [Aleve] 220 mg Tablet 220 mg PO Q8H PRN (Reason: Pain) RF: 0 Discharge Orders: Discharge Order (Routine); Ordered 01/24/20 Ordered By: Jerzy Landers Referrals: Grzegorz Sanchez MD [Primary Care Provider] - 4-7 days Agustin Hawthorne MD [Physician] - 2 weeks Discharge Diet: Cardiac Discharge Activity: Increase activity as tolerated Activity Restrictions/Additional Instructions: Take all medicine as prescribed Follow-up with your primary care provider regarding your left shoulder pain to see if further imaging is needed if pain continues past 4 weeks or worsens. Please see her primary regarding biopsy results of right thigh lesion, and appropriate follow-up. 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
--- NOTE | 2020-01-24 14:56 | US_ITS ---
WS: [id number] INDICATION: Right leg biopsy TECHNIQUE: Ultrasound-guided right leg biopsy FINDINGS: The procedure including risks benefits, and complications were discussed with the patient w ho agreed to proceed. Using sterile technique, patient was prepped and draped in usual sterile fashio n. After 1% lidocaine using ultrasound guidance numerous core biopsies were obtained of the heterogen eous lateral popliteal lesion. No immediate applications. US/US biopsy [id number] IMPRESSION: Uncomplicated ultrasound-guided lateral right popliteal biopsy. Pat hology is pending.
[2020-01-24 15:00] VITALS: BP 126/72; BP 129/70; PULSE 83; PULSE 84; RESP 17; RESP 20; TEMP 37.1; TEMP 37.3; O2SAT 88; O2SAT 94
[2020-01-24 17:39] VITALS: BP 129/70; PULSE 84; RESP 17; TEMP 37.1; O2SAT 88
--- NOTE | 2020-01-25 13:29 | PC.NURSE ---
Dr. Gaxiola instructed this underwriter to send return to work excuse for patient to [employer]. Excuse faxed to [employer].
== END 2020-01-24 16:45 | disposition home or self-care (01) | DRG 981 ==
LOC: ER 19:42 → ICU 20:00 → MEDSURG 01-22 22:02
PROVIDERS: Emergency Medicine; Internal Medicine; Admitting Provider Family Medicine; PCP Internal Medicine; Visit Provider Internal Medicine
DX: I11.0 Hypertensive heart disease with heart failure (principal); J12.9 Viral pneumonia, unspecified; C49.21 Malignant neoplasm of connective and soft tissue of right lower limb, including hip; I50.33 Acute on chronic diastolic (congestive) heart failure; R22.41 Localized swelling, mass and lump, right lower limb; G47.33 Obstructive sleep apnea (adult) (pediatric); Z20.828 Contact with and (suspected) exposure to other viral communicable diseases; F41.8 Other specified anxiety disorders; S49.82XA Other specified injuries of left shoulder and upper arm, initial encounter; W19.XXXA Unspecified fall, initial encounter; Y92.230 Patient room in hospital as the place of occurrence of the external cause; M25.512 Pain in left shoulder; K21.9 Gastro-esophageal reflux disease without esophagitis; Z87.891 Personal history of nicotine dependence; Z96.642 Presence of left artificial hip joint; E66.01 Morbid (severe) obesity due to excess calories; Z68.33 Body mass index [BMI] 33.0-33.9, adult
CPT/HCPCS: 12345; 20206; 36415; 36416; 36600; 51702; 71045; 71275; 73030; 73200; 73723; 76942; 80048; 80053; 81003; 82803; 82962; 83605; 83735; 83880; 84484; 85025; 85378; 85610; 87426; 87635; 88307; 90471; 90732; 93005; 93306; 93971; 94640; 94660; 96372; 96375; 97110; 97165; 99284; A9579; J0456; J1650; J1940; J2060; J2270; J2930; J3535; J7050; J7512; Q0144; Q9967

== ENCOUNTER 2020-01-31 12:42 | Outpatient (CLI) | payer OTHER, SELFPAY ==
--- NOTE | 2020-01-31 14:00 | CT_ITS ---
WS: [id number] CT CHEST, ABDOMEN, AND PELVIS TECHNIQUE: Contrast-enhanced CT of the chest, abdomen, and pelvis with coronal and sagittal reformatt ed images. CLINICAL INFORMATION: Sarcoma Met w/u COMPARISON: CT abdomen pelvis and CTA chest January 20, 2020 DLP: 2609.[address] scans at [facility] use at least one of these dose optimization techniques: automat ed exposure control; mA and/or kV adjustment per patient size (includes targeted exams where dose is matched to clinical indication); or iterative reconstruction. CT CHEST: Both lungs are well aerated. No acute pulmonary infiltrates. Slight hazy atelectasis in the lingula. No focal pneumonia. No consolidation or pleural fluid. A few small nodules in the thyroid. Normal rosemarie iber thoracic aorta. Aortic calcification. Proximal main pulmonary arteries are normal. No mediastina l or hilar lymphadenopathy. No axillary lymphadenopathy. CT ABDOMEN AND PELVIS: Enhancing lesion left hepatic lobe unchanged likely cavernous hemangioma. Portal vein and splenic vei n are patent. Mild diffuse fatty infiltration liver. Normal spleen. Bilateral adrenal adenomas are un changed. Normal renal parenchymal enhancement. No hydronephrosis. Bilateral renal cysts Normal caliber abdominal aorta. Moderate to severe stenosis in the distal abdominal aorta with dense calcified atheromatous plaque is similar in appearance to 2017. Ventral abdominal wall mesh hernia re pair. Bilateral THAs. Images in the pelvis are degraded due to beam hardening artifact from hip repla cements. No evidence of small or large bowel obstruction. Disc space narrowing L5-S1. CT/CT chest abd pel w con* IMPRESSION: 1. No evidence of metastatic disease in the chest abdomen or pelvis. 2. Bilateral adrenal adenomas are unchanged. 3. No mediastinal or hilar lymphadenopathy. No abdominal or pelvic lymphadenop athy. 4. Small bilateral thyroid nodules. This can be followed up with ultrasound on an elective basis. 5. Diffuse fatty infiltration the liver. Stable enhancing lesions within the l eft hepatic lobe likely cavernous hemangiomas. 6. Prior cholecystectomy. 7. Prior ventral abdominal wall mesh hernia repair. 8. Bilateral renal cysts. 9. Moderate to severe stenosis in the distal abdominal aorta just proximal to the bifurcation appears similar to 2017..
== END 2020-01-31 12:43 | disposition home or self-care (01) ==
LOC: RADWPI 12:49
PROVIDERS: PCP Internal Medicine; Visit Provider Internal Medicine
DX: C49.21 Malignant neoplasm of connective and soft tissue of right lower limb, including hip (principal); D35.02 Benign neoplasm of left adrenal gland; D35.01 Benign neoplasm of right adrenal gland; E04.2 Nontoxic multinodular goiter; K76.0 Fatty (change of) liver, not elsewhere classified; Q61.02 Congenital multiple renal cysts; I25.10 Atherosclerotic heart disease of native coronary artery without angina pectoris
CPT/HCPCS: 71260; 74177; Q9967

== ENCOUNTER → 2020-02-10 15:03 | Outpatient (BNVA) | payer OTHER, SELFPAY | PROVIDERS: PCP Internal Medicine; Visit Provider Internal Medicine | DX: Z20.828 Contact with and (suspected) exposure to other viral communicable diseases (principal) | CPT/HCPCS: 87635 ==

== ENCOUNTER 2020-02-19 15:30 | Emergency (ER) | payer OTHER, SELFPAY ==
--- NOTE | 2020-02-19 | USCV_ITS ---
Dennise Funes Age: 64 Gender: F : 1955 Exam Date: 02/19/2020 16:53 Ordering Phys: Rex Baker Technologist: Neville Casey [place] [facility] [place]: POST SURGERY. SWELLING PROCEDURES: Venous duplex imaging was performed in only the right lower extremity. The following venous structures were evaluated: common femoral vein, profunda vein, proximal portion of the greater saphenous vein, superficial femoral vein, and the popliteal vein. In addition, the posterior tibial and peroneal trunk were evaluated. Serial compression, augmentation maneuvers, and spectral Doppler flow evaluation were performed. FINDINGS: Normal 2-D Doppler and augmentation and compressibility throughout the lower extremity venous structures. Additional imaging through the proximal calf veins also reveals no thrombus. Limited evaluation of the greater saphenous vein is patent with no thrombus.. 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 There is an area of mixed content with no blood flow. Joseph Marshall MD Edited by: BALDOMERO Load Checker (Electronically Signed) Final Date: 20 February 2020 07:38 Amended: 20 February 2020 09:00 C
[2020-02-19 16:20] VITALS: BP 144/82; PULSE 79; RESP 16; TEMP 36.3; O2SAT 97; BMI 34.5
--- NOTE | 2020-02-19 18:15 | ED_ITS ---
HPI - General Adult General: Chief complaint: General Medical Stated complaint: possible DVT-surgery 5 days ago Time Seen by Provider: 02/19/20 17:58 History of Present Illness: HPI narrative: Patient has some swelling to her right leg postsurgical she had a sarcoma removed behind her knee has kimberly in place and was worried that she might have a clot. MD complaint: Swelling behind right knee Onset (ago): hour(s) Location: lower extremity Radiation: non-radiation Severity: mild Quality: aching Pain Consistency: constant Associated symptoms: Deny chest pain, dyspnea, headache(s), nausea, rash or vomiting Review of Systems Const: Denies: fever(s), chills or body aches Eyes: Denies: change in vision or blurry vision ENMT: Denies: throat pain or nasal congestion Card: Denies: chest pain or dyspnea on exertion Resp: Denies: dyspnea, productive cough or non-productive cough GI: Denies: abdominal pain, nausea or vomiting Musc: Denies: extremity pain Skin/Breast: Reports: other (Postsurgical swelling behind right knee at the base of the incision patient worried that she might have a clot); Denies: rash Neuro: Denies: headache(s) Psych: Denies: anxiety or depression Govind/Lymph: Denies: easy bruising PFSH ED PFSH: Medical History (Updated 02/19/20 @ 18:08 by DINA Stoddard) Anxiety and depression GERD (gastroesophageal reflux disease) Hypertension Lisinopril, Lasix added. Metabolic syndrome Sleep apnea Surgical History H/O tubal ligation History of hernia repair History of partial hysterectomy History of total left hip arthroplasty DOS: 04/22/2017 Dr. Bean History of total right hip arthroplasty Hx of appendectomy Family History Mother Family history of premature coronary artery disease Hypertension Brother Cancer Hypertension Sister Cancer Father Family history of premature coronary artery disease Hypertension Denies family history of Diabetes CAD (coronary artery disease) Clotting disorder Dementia Hyperlipidemia Psychiatric illness Chronic kidney disease (CKD) Suicide Anesthesia complication Bleeding disorder Lung disease Stroke Social History Smoking and tobacco status: former smoker Quit status (tobacco): has quit using tobacco Former quit date comment: 4 years ago Second hand smoke exposure: No Alcohol intake: never Adopted: No Caregiver/support person: Yes Lives independently: Yes Marital status: Single Current occupational status: employed 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 History of recent travel: No Physical Exam Const: COMMON NORMALS: no acute distress, average body habitus and patient oriented x3 HENMT: COMMON NORMALS: normocephalic HEAD & SCALP: normal to inspection and normocephalic FACE & SINUS: normal facial exam Eye: COMMON NORMALS: conjunctivae normal GENERAL EYE: appearance normal, both eyes and all related structures CONJUNCTIVA: Yes conjunctivae normal Neck/C-Spine: COMMON NORMALS: no JVD Chest: COMMONS NORMALS: normal inspection of the chest Resp: COMMON NORMALS: normal respiratory effort and clear to auscultation bilaterally AUSCULTATION: clear to auscultation bilaterally Cardio: COMMON NORMALS: no JVD, regular rate and regular rhythm RATE: regular rate RHYTHM: regular rhythm GI: COMMON NORMALS: Normal to inspection, nondistended, normoactive bowel sounds present Extremity: COMMON NORMALS: normal to inspection and full ROM Neuro: COMMON NORMALS: patient oriented x3 Skin: NARRATIVE SKIN EXAM: Patient kimberly in place along incision behind right knee she has some swelling down the base of the incision she has bruising around the incision appears to be a hematoma ultrasound confirms this no erythema noted Course Vital Signs: Vital signs: Vital Signs Temperature 97.3 F L 02/19/20 16:20 Pulse Rate 79 02/19/20 16:20 Respiratory Rate 16 02/19/20 16:20 Blood Pressure 144/82 02/19/20 16:20 Pulse Oximetry 97 02/19/20 16:20 Discharge Plan Discharge Patient Disposition: Home Clinical Impression: Postoperative hematoma Qualifiers: Surgical complication system/body Area: subcutaneous tissue Procedure type: non-dermatologic Qualified Code(s): L76.32 - Postprocedural hematoma of skin and subcutaneous tissue following other procedure Condition: Stable Prescriptions: New hydrocodone-acetaminophen 5-325 mg tablet 1 tab PO Q8H PRN (Reason: pain) Qty: 14 RF: 0 No Action pantoprazole [Protonix] 40 mg tablet,delayed release (DR/EC) 40 mg PO BID Qty: 180 RF: 3 albuterol sulfate [Ventolin HFA] 90 mcg/actuation HFA aerosol inhaler 2 puff INHALATION Q6H PRN (Reason: Shortness Of Breath) RF: 0 metoprolol tartrate 25 mg tablet 12.5 mg PO BID Qty: 90 RF: 3 hydrocodone-acetaminophen [[place]] 5-325 mg tablet 1 tab PO Q8H PRN (Reason: pain) 30 Days Qty: 60 RF: 0 hydroxyzine pamoate 25 mg capsule See Rx Instructions .ROUTE .COMPLEX Qty: 90 RF: 5 duloxetine 30 mg capsule,delayed release(DR/EC) 30 mg PO DAILY Qty: 90 RF: 2 lisinopril 5 mg tablet 5 mg PO DAILY Qty: 30 RF: 3 furosemide 40 mg tablet 40 mg PO DAILY@0800 Qty: 30 RF: 0 potassium chloride 10 mEq capsule, extended release 10 meq PO DAILY Qty: 30 RF: 0 Discharge Orders: Discharge Order (Routine); Ordered 02/19/20 Ordered By: Rex Baker Referrals: Grzegorz Sanchez MD [Primary Care Provider] - Discharge Diet: Usual diet Discharge Activity: Increase activity as tolerated Activity Restrictions/Additional Instructions: Wear Scotty wrap and dressing. 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
[2020-02-19 18:29] VITALS: RESP 18
== END 2020-02-19 18:36 | disposition home or self-care (01) ==
PROVIDERS: Emergency Provider Nurse Practitioner Family; PCP Internal Medicine
DX: L76.32 Postprocedural hematoma of skin and subcutaneous tissue following other procedure (principal); Z87.891 Personal history of nicotine dependence; I10 Essential (primary) hypertension
CPT/HCPCS: 12345; 93971; 99281; 99283

== ENCOUNTER 2020-03-05 12:56 | Outpatient (CLI) | payer OTHER, SELFPAY ==
--- NOTE | 2020-03-05 17:39 | N.ONRAD NP_ITS ---
Radiation Oncology New Patient Visit Patient: Dennise Funes MR#: [id number] : 1955 Age: 64 Sex: Female Dictated by: Dr. Jorge Murphy Date of Service: 03/05/2020 Referring Physician(s) : Dr. 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 No further deep surgical resection is indicated due to close proximity of the right peroneal nerve. The patient is status post surgical resection (02/14/2020), and she currently has wound healing complications secondary to an infection noted after removal of surgical kimberly. Radiotherapy to date: Summary > No prior radiation therapy. Chief Complaint / History of Present Illness: The patient is a 64-year-old female who noted a fast growing mass behind her right knee. She sought medical attention, and a subsequent MRI of the right knee (01/23/2020) revealed an enhancing lesion in the right posterior knee measuring 3.9 x 2.2 x 2.8 cm. 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 On 01/31/2020, the patient underwent a CT of the chest abdomen and pelvis which revealed no evidence of metastatic disease in the chest abdomen or pelvis. 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 The patient was referred to Dr. Verdugo at [facility] who performed surgical resection (02/14/2020) with pathology revealing grade 3 undifferentiated pleomorphic sarcoma involving the subcutis and dermis, measuring 5 cm, mitotic rate 39/10 hpf, 20% tumor necrosis, and postsurgical margins were negative but less than 1 mm from the deep margin. Per Dr. Verdugo's operative note, the tumor was removed en bloc deeply down to the peroneal nerve. The patient is seen in consultation today, and she reports that she was recently diagnosed with a wound infection after removal of surgical kimberly. The patient reports feeling better, and her wound healing is progressing. Current Medications: DULoxetine HCl, furosemide, klor-Con 10, lisinopril, metoprolol Tartrate, pantoprazole Sodium. Allergies: Amoxicillin, Penicillins and Phenytoin Sodium Extended. Medical History: - Anxiety, - depression, - gastroesophageal reflux disease, - hypertension, - metabolic syndrome, - sleep apnea. No history of collagen vascular disease. No previous radiation therapy. Surgical History: Appendectomy, bilateral hip arthroplasty, hernia repair, hysterectomy and tubal ligation. Family History: Father is having experienced Prostate Cancer, and heart attack. Mother is having experienced heart attack. Brother is having experienced Colon Cancer. Sister has experienced Lung Cancer. Family History: Father had Prostate Cancer, 1 brother had Stage 4 Colon Cancer and Melanoma, 1 sister had Melanoma and lung cancer. Social History: Last screened on 03/03/2020 - Yes - but has quit. Last screened on 03/03/2020 - Never drank. Current Complaints / Review of Systems: Constitutional - Complains of moderate fatigue. Complains of fever which happened last week related to an infection in the leg. Complains of night sweats which occur occasionally. Denies lack of appetite. Eyes - Denies blurred vision and double vision. ENMT - Complains of mouth dryness occasionally. Denies dysphagia, ear pain, stomatitis, altered taste and tinnitus. Neck - Denies neck pain. Integumentary - Denies rash. Breasts - Denies pain. Cardiovascular - Complains of arrhythmias and edema in both feet and hands. Denies chest pain. Respiratory - Complains of dyspnea which happens occasionally and is associated with swelling and fluid and wheezing. Denies cough. Gastrointestinal - Complains of intermittent constipation. Complains of occasional diarrhea. Complains of heartburn / dyspepsia. Complains of nausea. Complains of satiety. Denies abdominal pain, melena / GI bleeding and vomiting. Genitourinary (F) - Complains of nocturia gets up about 1 time per night. Denies dysuria, frequency, urgency, vaginal discharge / bleeding and vaginal spotting. Musculoskeletal - Complains of joint pain bilateral hips. Denies bone pain and muscle weakness. Neurologic - Complains of headaches occasionally. Denies dizziness, abnormal gait and seizure. Endocrine - Denies diabetes and thyroid disease. Hematologic/Lymphatic - Denies tender or enlarged lymph nodes.. Physical Exam: GENERAL:??? The patient is alert, and in no acute distress. HEENT:??? Head is normocephalic. Face is symmetric. External ocular movements are intact. Sclera and conjunctivae are non erythematous. NECK:??? Trachea is midline.??? Thyroid is not enlarged by palpation.??? LYMPH NODES:??? There is no cervical or supraclavicular adenopathy bilaterally. LUNGS:??? Clear to auscultation bilaterally. Respiratory movement is unlabored. HEART:??? Regular rate and rhythm. NEUROLOGIC:??? Gait and station are normal.??? The patient is well coordinated and strength is equal bilaterally. LOAN SERVICING SPECIALIST:??? Cranial nerves II-XII are intact and without focal deficits.??? Psych: Affect is normal. EXTREMITIES:??? Pictured on the right is a healing surgical incision in the popliteal fossa of the right knee. It measures about 14 cm long. There are no apparent drain sites that I can appreciate. As can be appreciated by the image on the right, further wound healing is needed prior to initiating radiation therapy due to wound healing issues in the superior and middle aspect of the incision. By report, the patient experienced a wound infection after removal of the surgical kimberly. Performance Status: 0 - Fully active, able to carry on all predisease activities without restrictions. 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 She is status post surgical resection at [facility] (02/14/2020) and pathology revealed, a 5 cm tumor, negative postsurgical margins (but less than 1 mm from the deep margin), 20% tumor necrosis, and a mitotic rate of 39/10 hpf. No further deep surgical resection is indicated due to risks of compromising extremity function. The patient currently has moderate wound healing complications secondary to an infection noted after removal of surgical kimberly. I have requested a postoperative MRI of the right knee with plans to begin radiation therapy planning on 03/26/2020. I have requested that Dr Piedra do a quick skin check prior to the CT simulation to ensure adequate wound healing before initiating radiotherapy planning. The CT simulation data set should be fused with the pre and postop MRI scans. I recommend adjuvant radiation therapy for local control purposes, given the high grade disease, close post surgical margins, and other pathologic findings. We discussed potential acute and late radiation treatment toxicities in detail. I recommend considering one of two treatment approaches listed below using a daily 1/2 cm bolus along with IMRT planning techniques. The final dose and treatment planning should be determined by Dr. Piedra. Simultaneous integrated boost technique (Vale Lee???s book ??? ISBN [phone]): -) CTV66 Gy/33fx to high risk subclinical regions (i.e., entire post op GTV and immediate area of surgical disruption + 1-2 cm longtitudinal margin + 1.5 cm circumferential margin); -) CTV56 Gy/33 fx at 1.69 Gy/fx to lower risk subclinical regions (i.e., postop GTV + 4 cm longitudinal margin + 1.5 cm radial margin limited to but including any anatomical barrier to disease spread; additional disturbed surgical tissues and any scars are included if not already included in the 1-2 cm margin). -) Respective PTV???s add 7 mm margin. Traditional shrinking field technique: -) an initial dose of 50 Gy in 25 fractions followed by a 10-16 Gy boost in 5-8 fractions as deemed appropriate by Dr Piedra. Signed by: Jorge Murphy MD 03/05/2020 5:36:45 PM <<Signature on File>> CPT Code: CPT Code:
== END 2020-03-05 12:57 | disposition home or self-care (01) ==
LOC: ONCMED 13:01
PROVIDERS: PCP Internal Medicine; Visit Provider Radiology Radiation Oncology
DX: C49.21 Malignant neoplasm of connective and soft tissue of right lower limb, including hip (principal); F41.9 Anxiety disorder, unspecified; F32.9 Major depressive disorder, single episode, unspecified; K21.9 Gastro-esophageal reflux disease without esophagitis; I10 Essential (primary) hypertension; E88.81 Metabolic syndrome and other insulin resistance; G47.30 Sleep apnea, unspecified
CPT/HCPCS: 88304; 99205

== ENCOUNTER 2020-03-13 09:08 | Outpatient (CLI) | payer OTHER, SELFPAY ==
--- NOTE | 2020-03-13 09:17 | US_ITS ---
WS: [id number] ULTRASOUND SOFT TISSUES LEFT lateral lower extremity. HISTORY: LOCALIZED SWELLING COMPARISON: None available. TECHNIQUE: 2-D and color Doppler imaging is submitted. Ultrasound is directed to the area of soft tissue edema. There is no soft tissue abnormality noted. N o mass or edema. Orientation of the muscle fibers is normal. US/US soft tissue/extremity 20263 IMPRESSION: Negative ultrasound soft tissue LEFT lower extremity.
== END 2020-03-13 09:09 | disposition home or self-care (01) ==
LOC: RAD 09:13
PROVIDERS: PCP Internal Medicine; Visit Provider Dermatology
DX: R22.42 Localized swelling, mass and lump, left lower limb (principal)
CPT/HCPCS: 76882

== ENCOUNTER 2020-03-24 08:40 | Outpatient (CLI) | payer OTHER, SELFPAY ==
--- NOTE | 2020-03-24 08:46 | MR_ITS ---
WS: [id number] MRI RIGHT KNEE NONCONTRAST AND CONTRAST TECHNIQUE: Axial PD, coronal PD fat sat, coronal PD, sagittal PD, and sagittal PD fat-sat images obta ined. Post gadolinium images were obtained with fat saturation technique. CLINICAL INFORMATION: HIGH GRADE SARCOMA RIGHT POSTERIOR KNEE COMPARISON: Comparison MRI January 23, 2020 FINDINGS: Previously described enhancing T2 hyperintense lesion has been resected in the interval. Expected pos toperative changes with edema and postoperative enhancement at the surgical site. No drainable fluid collections. Gross total resection of the previously described sarcoma. No evidence of new or progres sive disease. No residual enhancing disease identified. Normal ACL and PCL. Distal quadriceps and patella tendons are intact. Hypertrophic patella. Chronic t hinning of the medial and lateral meniscus. Moderate chondromalacia patella. No subchondral edema. MR/MR knee RT wo/w con [id number] IMPRESSION: 1. Postoperative changes are new since the prior examination with resection of the previously described sarcoma. Expected postoperative edema and enhancement at the resection site. 2. No evidence of recurrent or residual disease. 3. No other significant changes from previous.
== END 2020-03-24 08:41 | disposition home or self-care (01) ==
LOC: ONCMED 08:43
PROVIDERS: PCP Internal Medicine; Visit Provider Radiology Radiation Oncology
DX: C49.21 Malignant neoplasm of connective and soft tissue of right lower limb, including hip (principal)
CPT/HCPCS: 73723; A9579

== ENCOUNTER 2020-04-14 05:20 | Outpatient (RCR) | payer OTHER, SELFPAY ==
[2020-03-31 14:18] LABS: Blood Urea Nitrogen 19 mg/dL (8-23); Glomerular Filtration Rate 72.4 mL/min (90-130)
--- NOTE | 2020-04-01 | CT_ITS ---
Radiation Therapy Planning CT images; total exam DLP: 1129.80 mGy-cm MTDD
--- NOTE | 2020-04-14 08:59 | ONCRAD TMN_ITS ---
Radiation Oncology Weekly Treatment Management Patient: Marin Bowden MR#: [id number] : 1955> Attending Physician: Luis Armando Piedra M.D. Date of Service: 04/14/2020 Referring Physician(s): Yury Barbour M.D. 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 The patient has received 6 Gy of a prescribed 50 Sandra with 3D- conformal radiotherapy plan utilizing opposed tangential portal meier. Upon review of systems, she denied any musculoskeletal complaints of the lower extremity related to radiotherapy but continues to have burning pain in the popliteal fossa. On physical examination, she patient weighed 198 lbs. Her temperature was 97.5 ???F with a blood pressure of 170/87 mmHg. Her pulse was 82 bpm and her respiratory rate was 20. There was no erythema within the treatment meier of the right lower extremity. Continue post-operative radiotherapy to the right lower extremity as prescribed. I will prescribe oxycodone release 5 mg prn. Signed by: Dr. Luis Armando Piedra 04/14/2020 8:57:51 AM
== END 2020-04-14 23:59 | disposition home or self-care (01) ==
LOC: ONCMED 05:20
PROVIDERS: PCP Internal Medicine; Visit Provider Radiology Radiation Oncology
DX: Z51.0 Encounter for antineoplastic radiation therapy (principal); C49.21 Malignant neoplasm of connective and soft tissue of right lower limb, including hip; Z79.891 Long term (current) use of opiate analgesic
CPT/HCPCS: 36415; 77290; 77295; 77300; 77334; 77387; 77412; 82565; 84520

== ENCOUNTER 2020-04-25 06:00 | Outpatient (RCR) | payer OTHER, SELFPAY | END 2020-05-15 23:59 | disposition home or self-care (01) | LOC: SPT 06:00 | PROVIDERS: PCP Internal Medicine; Referring Provider Radiology Radiation Oncology; Visit Provider Radiology Radiation Oncology | DX: C49.21 Malignant neoplasm of connective and soft tissue of right lower limb, including hip (principal) | CPT/HCPCS: 97140; 97162 ==

== ENCOUNTER 2020-04-25 09:06 | Outpatient (CLI) | payer OTHER, SELFPAY ==
--- NOTE | 2020-04-25 09:08 | USCV_ITS ---
Dennise Funes Age: 65 Gender: F : 1955 Exam Date: 04/25/2020 09:12 Ordering Phys: Luis Armando Piedra MD Technologist: Sue Gonzalez [place]am [place] [facility] [place] Indication: right popliteal sarcoma HISTORY: Right Popliteal Sarcoma, pain PROCEDURES: Venous duplex imaging was performed in only the right lower extremity. The following venous structures were evaluated: common femoral vein, profunda vein, proximal portion of the greater saphenous vein, superficial femoral vein, and the popliteal vein. In addition, the posterior tibial and peroneal trunk were evaluated. Serial compression, augmentation maneuvers, and spectral Doppler flow evaluation were performed. FINDINGS: Normal 2-D Doppler and augmentation and compressibility throughout the lower extremity venous structures. Additional imaging through the proximal calf veins also reveals no thrombus. Limited evaluation of the greater saphenous vein is patent with no thrombus. CONCLUSIONS No DVT right lower extremity. Dr. Radha Sancehz DO (Electronically Signed) Final Date: 25 April 2020 10:21 S
== END 2020-04-25 09:07 | disposition home or self-care (01) ==
LOC: RAD 09:07
PROVIDERS: PCP Internal Medicine; Visit Provider Radiology Radiation Oncology
DX: C76.51 Malignant neoplasm of right lower limb (principal)
CPT/HCPCS: 93971

== ENCOUNTER 2020-05-01 13:14 | Outpatient (CLI) | payer OTHER, SELFPAY ==
--- NOTE | 2020-05-01 13:28 | US_ITS ---
WS: [id number] US soft tissue/extremity [id number] REASON FOR EXAM: R POPLITEAL SARCOMA FINDINGS: Realtime ultrasound evaluation of site of resected sarcoma undergoing radiation therapy. Evaluation of the skin demonstrated a small area of skin breakdown in the previously healed surgical scar. Ultrasound probe avoided this surgical scar. In the surgical bed: There is a small amount of fluid interposed between the muscle and the subcutaneous fat it is very pl iable and complex in shape. There was no significant marginal in the soft tissue marginating the flui d. Small side of intermediate echogenicity at the margin of the subcutaneous fat. There was no significa nt blood flow in these areas. US/US soft tissue/extremity [id number] IMPRESSION: The findings are seen are likely combination of postsurgical change and some ra diation-induced inflammatory change. There is no focal fluid collection that th at would suggest the presence of an abscess. The fluid that is seen as a linear distribution paralleling the skin surface, underlying the subcutaneous fat, an d is very pliable without increased vascularity, by Doppler, in the adjacent so ft tissues.
== END 2020-05-01 13:15 | disposition home or self-care (01) ==
LOC: RAD 13:20
PROVIDERS: PCP Internal Medicine; Visit Provider Radiology Radiation Oncology
DX: C76.51 Malignant neoplasm of right lower limb (principal)
CPT/HCPCS: 76882

== ENCOUNTER 2020-05-15 05:46 | Outpatient (RCR) | payer OTHER, SELFPAY ==
--- NOTE | 2020-04-21 09:11 | ONCRAD TMN_ITS ---
Radiation Oncology Weekly Treatment Management Patient: Dennise Funes MR#: [id number] : 1955 Attending Physician: Luis Armando Piedra M.D. Date of Service: 04/21/2020 Referring Physician(s): Dr. 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 The patient has received 16 Gy of a prescribed 50 Sandra with 3D- conformal radiotherapy plan utilizing opposed tangential portal meier. An additional 10 Sandra will be delivered in 5 fractions to the surgical bed subsequent to the initial treatment plan. Upon review of systems, she denied any musculoskeletal complaints of the lower extremity related to radiotherapy but continues to have pain that radiates to the right groin. On physical examination, she patient weighed 200 lbs. Her temperature was 97.5 ???F with a blood pressure of 142/71 mmHg. Her pulse was 70 bpm and her respiratory rate was 20. There was no erythema within the treatment meier of the right lower extremity. Continue post-operative radiotherapy to the right lower extremity as prescribed. Signed by: Dr. Luis Armando Piedra 04/21/2020 9:10:39 AM
--- NOTE | 2020-04-29 08:57 | ONCRAD TMN_ITS ---
Radiation Oncology Weekly Treatment Management Patient: Dennise Funes MR#: [id number] : 1955 Attending Physician: Luis Armando Piedra M.D. Date of Service: 04/29/2020 Referring Physician(s): Dr. 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 The patient has received 24 Gy of a prescribed 50 Sandra with 3D- conformal radiotherapy plan utilizing opposed tangential portal meier. An additional 10 Sandra will be delivered in 5 fractions to the surgical bed subsequent to the initial treatment plan. Upon review of systems, she denied any musculoskeletal complaints of the lower extremity related to radiotherapy but continues to have pain that radiates to the right groin. This has improved with physical therapy. She also described a rash in the treatment area. On physical examination, she patient weighed 199 lbs. Her temperature was 98.8 ???F with a blood pressure of 138/83 mmHg. Her pulse was 80 bpm and her respiratory rate was 18. There were multiple pus filled papules on an erythematous base that was tender to palpation located on the superior aspect of the right lower extremity just inferior to the popliteal fossa. Radiotherapy will be delayed because of the patient's inability to lie still secondary to discomfort of the rash. I will prescribe cephalexin (500 mg qid). Signed by: Dr. Luis Armando Piedra 04/29/2020 8:56:42 AM
--- NOTE | 2020-05-05 09:16 | ONCRAD TMN_ITS ---
Radiation Oncology Weekly Treatment Management Patient: Dennise Funes MR#: [id number] : 1955 Attending Physician: Luis Armando Piedra M.D. Date of Service: 05/05/2020 Referring Physician(s): Dr. 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 The patient has received 28 Gy of a prescribed 50 Sandra with 3D- conformal radiotherapy plan utilizing opposed tangential portal meier. An additional 10 Sandra will be delivered in 5 fractions to the surgical bed subsequent to the initial treatment plan. Upon review of systems, she continues to have pain that radiates to the right groin. This has improved with physical therapy. On physical examination, she patient weighed 202 lbs. Her temperature was 99 ???F with a blood pressure of 143/85 mmHg. Her pulse was 83 bpm and her respiratory rate was 20. The posterior lower extremity rash has essentially resolved. No significant radiotherapy dermatitis was noted. Continue postoperative radiotherapy to the right lower extremity as planned. Signed by: Dr. Luis Armando Piedra 05/05/2020 9:15:30 AM
--- NOTE | 2020-05-12 07:17 | MR_ITS ---
WS: [id number] INDICATION: Soft tissue sarcoma TECHNIQUE: MRI of the right lower extremity without and with gadolinium enhancement. Sagittal T1, axi al T2, sagittal STIR, axial PD, coronal T1, and STIR imaging. Sagittal T1 STIR imaging. Pre and post gadolinium imaging with fat saturation technique. FINDINGS: Comparison prior MRI 03/24/2020 and 01/23/2020 Prior postoperative changes resection of the previously described T2 hyperintense soft tissue sarcoma . Normal bone marrow signal in the distal femur and tibia. Normal bone marrow signal in the tibial plat eau. No evidence of bony metastatic disease in the right lower extremity. No abnormal bony enhancemen t.Small amount of postoperative enhancement and edema at the operative site extending to the skin. Re commend continued surveillance. No evidence of recurrent or progressive disease. Soft tissue edema in the anterior compartment right lower leg with mild subcutaneous soft tissue thuy a. Mild infrapatellar soft tissue edema. No evidence of drainable fluid collection or soft tissue mas s. MR/MR lower leg RT wo/w con [id number] IMPRESSION: 1. Prior postoperative changes resection soft tissue sarcoma right lower extre mity. 2. No evidence of recurrent or progressive disease. 3. Small amount of postoperative enhancement and edema at the operative site e xtending to the skin. Recommend continued surveillance. No evidence of recurren t or progressive disease.
--- NOTE | 2020-05-12 10:50 | ONCRAD TMN_ITS ---
Radiation Oncology Weekly Treatment Management Patient: Dennise Funes MR#: [id number] : 1955 Attending Physician: Luis Armando Piedra M.D. Date of Service: 05/12/2020 Referring Physician: Dr. 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 The patient has received 34 Gy of a prescribed 50 Sandra with 3D- conformal radiotherapy plan utilizing opposed tangential portal meier. An additional 10 Sandra will be delivered in 5 fractions to the surgical bed subsequent to the initial treatment plan. Upon review of systems, the pain has improved in her right lower extremity. She still requires pain medicine. On physical examination, she patient weighed 198 lbs. Her temperature was 98.9 ???F with a blood pressure of 119/63 mmHg. Her pulse was 69 bpm and her respiratory rate was 16. No significant radiotherapy dermatitis was noted. Continue postoperative radiotherapy to the right lower extremity as prescribed. The MR of the right popliteal fossa was scheduled to be completed today. Signed by: Dr. Luis Armando Piedra 05/12/2020 10:49:54 AM
== END 2020-05-15 23:59 | disposition home or self-care (01) ==
LOC: ONCMED 05:46
PROVIDERS: PCP Internal Medicine; Visit Provider Radiology Radiation Oncology
DX: Z51.0 Encounter for antineoplastic radiation therapy (principal); C49.21 Malignant neoplasm of connective and soft tissue of right lower limb, including hip; M79.604 Pain in right leg; L58.0 Acute radiodermatitis; Y84.2 Radiological procedure and radiotherapy as the cause of abnormal reaction of the patient, or of later complication, without mention of misadventure at the time of the procedure
CPT/HCPCS: 36415; 73720; 77336; 77387; 77412; 84439; 84443; A9579

== ENCOUNTER 2020-05-15 07:01 | Outpatient (CLI) | payer OTHER, SELFPAY ==
--- NOTE | 2020-05-15 07:03 | NMCV_ITS ---
NM ines perf SPECT r/s* [id number] Dennise Funes Age: 65 Gender: F : 1955 Exam Date: 05/15/2020 08:17 Ordering Phys: Pawan Staton M.D ([email or web address]) Technologist: TANIA Galvan Exam Location: [facility] Indications: CHEST PAIN STRESS TEST [facility] IMAGE PROTOCOL Rest/Stress 1 Lexiscan Day Radiopharmaceutical Dose (mCi) Administration Site Administered by Rest: Tc-99m 10.7 IV TANIA Roa Sestamibi Stress:Tc-99m 32.6 IV Sestamibi Rest: 15-May-2020 60 Discovery 630 Stress: 15-May-2020 30 Discovery 630 0.4mg Lexiscan. Images obtained in supine and prone position. SPECT RESULTS Technical Quality: Excellent Raw Data Analysis: Normal Image Corrections: No attenuation or motion correction applied Summed Stress Score: 9 Summed Rest Score: 11 Summed Difference Score: 1 PERFUSION FINDINGS There is reduced radiotracer uptake both on rest and stress images and apical, inferior and apical septal lopez. This improves slightly on stress images likely indicating attenuation artifact or prior infarct. No significant area of reversibility seen. FUNCTIONAL RESULTS (calculated via Gated SPECT) Stress Image LV EF (%): 66 Stress EDV (mL):116 TID: 0.88 Stress ESV (mL):39 FUNCTIONAL FINDINGS: LV systolic function is normal with EF of 66%. IMPRESSIONS 1. Fixed perfusion defect is noted in apical, apical septal and inferior lopez. This improves on stress stress images likely representing attenuation artifact or prior infarct. No evidence of ischemia seen. 2. LV systolic function is normal with EF of 66%. Pawan Staton MD (Electronically Signed) Final Date: 25 May 2020 12:32 S
--- NOTE | 2020-05-15 07:03 | ECG_ITS ---
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 Interpretive Statements NAME OF STUDY: LEXISCAN SESTAMIBI STRESS TEST INDICATION: [Chest Pain sob] Procedure: At the baseline, the blood pressure was 146/79 mmHg,with a heart rate of 77 bpm. The electrocardiogram showed a normal sinus rhythm, left bundle branch block with normal ST-T waves. The Lexiscan was infused over a duration of 20 seconds. A total of 0.4 mg of Lexiscan was infused. The stress phase was continued for a total of 5 minutes. Heart rate at the end of stress phase was 82 bpm, with a blood pressure of 156/85 mmHg. The EKG at the peak infusion revealed sinus rhythm with no significant ST-T wave changes. Sestamibi was injected 20 seconds after Lexiscan infusion. Blood pressure at the end of recovery phase was 157/82 mmHg, with a heart rate of 84 bpm. Conclusion: 1. Normal EKG response to Lexiscan infusion. 2. No Lexiscan induced chest pain or cardiac arrhythmia. 3. Normal blood pressure and heart rate response. 4. Sestamibi/sestamibi perfusion scan pending; see separate report. Electronically Signed On 05-31-2020 9:46:01 [employer] OPERATIONS MANAGER by Pawan Staton M.D. [id number]
[2020-05-15 07:15] VITALS: BMI 32.5
[2020-05-15] MEDS: regadenoson 0.4 Mg/5 ml Syringe IVP (08:50)
[2020-05-15 09:20] VITALS: BP 157/82; PULSE 83
== END 2020-05-15 07:02 | disposition home or self-care (01) ==
LOC: CDL 07:01
PROVIDERS: PCP Internal Medicine; Visit Provider Internal Medicine
DX: R06.02 Shortness of breath (principal); R07.9 Chest pain, unspecified
CPT/HCPCS: 78452; 93017; A9500; J2785

== ENCOUNTER 2020-05-30 05:39 | Outpatient (RCR) | payer OTHER, SELFPAY ==
--- NOTE | 2020-05-19 09:14 | ONCRAD TMN_ITS ---
Treatment Management Note Patient Name: Dennise Funes Date of : 1955 Date of Service: 05/19/2020 Attending Physician: Luis Armando Piedra M.D. 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 The patient has received 40 Gy of a prescribed 50 Sandra with 3D- conformal radiotherapy plan utilizing opposed tangential portal meier. An additional 10 Sandra will be delivered in 5 fractions to the surgical bed subsequent to the initial treatment plan. Upon review of systems, she described re-emergence of the right lower extremity rash. On physical examination, she patient weighed 200 lbs. Her temperature was 98.2 ???F with a blood pressure of 123/59 mmHg. Her pulse was 90 bpm and her respiratory rate was 18. No significant radiotherapy dermatitis was noted. A popular rash was present along the lateral aspect of the RLE. Continue postoperative radiotherapy to the right lower extremity as planned. I will prescribe Keflex 500 mg qid for the rash. Signed by: Dr. Luis Armando Piedra 05/19/2020 9:13:01 AM
--- NOTE | 2020-05-26 09:00 | ONCRAD TMN_ITS ---
Radiation Oncology Treatment Management Note Patient Name: Dennise Funes Date of : 1955 Date of Service: 05/26/2020 Attending Physician: Luis Armando Piedra M.D. 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 The patient has received 50 Gy of a prescribed 50 Sandra with 3D- conformal radiotherapy plan utilizing opposed tangential portal meier. An additional 10 Sandra will be delivered in 5 fractions to the surgical bed subsequent to the initial treatment plan. Upon review of systems, she described redness of the right lower extremity. On physical examination, she patient weighed 197 lbs. Her temperature was 98.6 ???F with a blood pressure of 155/85 mmHg. Her pulse was 79 bpm and her respiratory rate was 16. A grade I dermatitis was noted. Continue postoperative radiotherapy to the right lower extremity as prescribed. I will refill her narcotic prescription (Oxycodone 5-10 mg). Signed by: Dr. Luis Armando Piedra 05/26/2020 8:58:37 AM
--- NOTE | 2020-05-30 08:40 | US_ITS ---
WS: [id number] INDICATION: Ultrasound left popliteal fossa TECHNIQUE: Ultrasound soft tissue left popliteal fossa. FINDINGS: Left popliteal fossa is normal in appearance. Normal underlying soft tissue. No cystic or s olid lesions. US/US soft tissue/extremity [id number] IMPRESSION: Normal left popliteal fossa
== END 2020-06-02 04:00 | disposition home or self-care (01) ==
LOC: ONCMED 05:39
PROVIDERS: PCP Internal Medicine; Visit Provider Radiology Radiation Oncology
DX: Z51.0 Encounter for antineoplastic radiation therapy (principal); C49.21 Malignant neoplasm of connective and soft tissue of right lower limb, including hip; L58.0 Acute radiodermatitis; Y84.2 Radiological procedure and radiotherapy as the cause of abnormal reaction of the patient, or of later complication, without mention of misadventure at the time of the procedure; Z79.891 Long term (current) use of opiate analgesic
CPT/HCPCS: 76882; 77307; 77334; 77336; 77387; 77412; 87070; 87077; 87186

== ENCOUNTER 2020-06-02 04:27 | Emergency (ER) | payer OTHER, SELFPAY ==
[2020-06-02] VITALS (7 sets, daily range): BP systolic 92–144; BP diastolic 49–63; PULSE 68–94; RESP 12–20; TEMP 37.1; O2SAT 91–96; BMI 30.5
--- NOTE | 2020-06-02 04:59 | USCV_ITS ---
Dennise Funes Age: 65 Gender: F : 1955 Exam Date: 06/02/2020 05:24 Ordering Phys: James Benoit DO Technologist: Sarai Lopez [place] [facility] [place]ication: RT LOWER LEG RED AND WARM HISTORY: Rt lower lateral leg pain during radiation therapy PROCEDURES: Venous duplex imaging was performed in only the right lower extremity. The following venous structures were evaluated: common femoral vein, profunda vein, proximal portion of the greater saphenous vein, superficial femoral vein, and the popliteal vein. In addition, the posterior tibial and peroneal trunk were evaluated. Serial compression, augmentation maneuvers, and spectral Doppler flow evaluation were performed. FINDINGS: Normal 2-D Doppler and augmentation and compressibility throughout the lower extremity venous structures. Additional imaging through the proximal calf veins also reveals no thrombus. Limited evaluation of the greater saphenous vein is patent with no thrombus. CONCLUSIONS No DVT right lower extremity. Dr. Radha Sanchez DO (Electronically Signed) Final Date: 02 June 2020 09:38 S
[2020-06-02] MEDS: sodium chloride 0.9% 500 ML IV (05:30)
[2020-06-02] MEDS: ondansetron 2 mg/ML SDV 2 mL 4 MG IVP (05:35)
[2020-06-02] MEDS: HYDROmorphone 1 mg/mL INJ 1 mL IVP (05:40)
[2020-06-02] MEDS: clindamycin 900 MG/50 ML PREMIX 100 MG IV (05:45)
[2020-06-02 05:48] LABS: Basophils % 0.7 %; Eosinophils # 0.1 10^3/uL (0.0-0.8); Eosinophils % 1.6 %; Hematocrit 38.3 % (37.0-47.0); Hemoglobin 12.6 g/dL (11.5-15.3); Lymphocytes # 1.9 10^3/uL (0.8-4.8); Lymphocytes % 33.1 %; Mean Corpuscular HGB Conc 32.9 g/dL (30.0-36.0); Mean Corpuscular Hemoglobin 29.9 pg (28.0-34.0); Mean Platelet Volume 9.6 fL (7.4-10.4); Monocytes # 0.5 10^3/uL (0.2-0.9); Monocytes % 9.1 %; Neutrophils % 55.1 %; Nucleated Red Blood Cells % 0 %; Platelet Count 307 10^3/cmm (130-400); Red Blood Count 4.21 10^6/uL (4.1-5.3); Red Cell Distribution Width 12.5 % (12.1-15.1); White Blood Count 5.6 10^3/uL (4.0-10.0)
[2020-06-02 05:58] LABS: Lactate (Lactic Acid level) 1.3 mmol/L (0.5-2.2)
[2020-06-02 06:11] LABS: Procalcitonin 0.08 ng/mL (0-0.5)
[2020-06-02 06:23] LABS: Alanine Aminotransferase 43 U/L (0-33); Alkaline Phosphatase 135 IU/L (35-105); Aspartate Amino Transferase 27 U/L (0-32); Blood Urea Nitrogen 21 mg/dL (8-23); C Reactive Protein 11.3 mg/L (0.0-4.9); Calcium 9.8 mg/dL (8.5-10.5); Carbon Dioxide 29 mmol/L (22-29); Chloride 97 mmol/L (98-107); Globulin 2.8 g/dL (1.3-4.6); Glomerular Filtration Rate 55.8 mL/min (90-130); Glucose 121 mg/dL (65-115); Osmolality Calculated 288 mOsm/kg (285-295); Sodium 137 mmol/L (136-145); Total Bilirubin 0.3 mg/dL (0.15-1.2); Total Protein 6.8 g/dL (6.6-8.7)
[2020-06-02 06:26] LABS: Creatinine Clr Calc Pharmacy 58.4232
[2020-06-02 06:27] LABS: Anion Gap 15.4 (5-19); Potassium 4.4 mmol/L (3.5-5.1)
[2020-06-02 06:37] LABS: Erythrocyte Sedimentation Rate 30 mm/hr (0-15)
--- NOTE | 2020-06-02 07:12 | W.ED.EXTPRO ---
HPI - Extremity Problem General: Chief complaint: Extremity Problem,Nontraumatic Stated complaint: R KNEE PAIN Time Seen by Provider: 06/02/20 04:37 History of Present Illness: HPI Narrative: 65-year-old female with a history of sarcoma to her right calf. She has been getting radiation treatments. Her last 1 is scheduled for today. She presents with increasing pain to that right posterior calf and knee, with increasing redness and warmth. She had completed a round of antibiotics for similar symptoms prior. She notes that her pain medications which she normally takes, were not working to relieve the pain that she is having this morning. she denies any fever. MD Complaint: extremity pain and extremity swelling Onset (ago): day(s) Pain Consistency: constant Location: right and lower extremity Quality: burning, stabbing and aching Relieving factors: nothing Exacerbating factors: range of motion Associated symptoms: Reports myalgias and rash; Deny arthralgias, chest pain, fever(s) or short of breath Review of Systems Const: Denies: fever(s) Card: Denies: chest pain or palpitations Resp: Denies: dyspnea, productive cough or non-productive cough GI: Denies: abdominal pain, nausea or vomiting Skin/Breast: Reports: rash Neuro: Denies: numbness in extremities, weakness in extremities or sensory changes PFSH ED PFSH: Medical History Anxiety and depression GERD (gastroesophageal reflux disease) History of nonmelanoma skin cancer Hypertension Lisinopril, Lasix added. Metabolic syndrome Sleep apnea Surgical History H/O tubal ligation History of hernia repair History of partial hysterectomy History of total left hip arthroplasty DOS: 04/22/2017 Dr. Bean History of total right hip arthroplasty Hx of appendectomy Family History Mother Family history of premature coronary artery disease Hypertension Brother Cancer Hypertension Sister Cancer Father Family history of premature coronary artery disease Hypertension Denies family history of Diabetes CAD (coronary artery disease) Clotting disorder Dementia Hyperlipidemia Psychiatric illness Chronic kidney disease (CKD) Suicide Anesthesia complication Bleeding disorder Lung disease Stroke Social History (Reviewed 05/08/20 @ 19:06 by Jose Lea Smoking and tobacco status: former smoker Quit status (tobacco): has quit using tobacco Former quit date comment: 4 years ago Second hand smoke exposure: No Alcohol intake: never Adopted: No Caregiver/support person: Yes Lives independently: Yes Marital status: Single Current occupational status: employed 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 History of recent travel: No Physical Exam Const: COMMON NORMALS: no acute distress, patient oriented x3 and alert Eye: COMMON NORMALS: Equal, round and reactive pupils present and EOMs intact bilaterally PUPIL: Yes Equal, round and reactive pupils present Chest: COMMONS NORMALS: normal inspection of the chest Resp: COMMON NORMALS: normal respiratory effort, No retractions, No use of accessory muscles and clear to auscultation bilaterally AUSCULTATION: clear to auscultation bilaterally Cardio: COMMON NORMALS: regular rate and regular rhythm RATE: regular rate RHYTHM: regular rhythm Extremity: NARRATIVE EXTREMITY EXAM: Exam of the right leg reveals beefy redness posterior, lateral, and distal to the knee. There is no streaking. No blistering. The redness is moist. There is significant tenderness with warmth. There is no knee joint effusion. Neuro: COMMON NORMALS: patient oriented x3 SENSORIUM/ORIENTATION: Yes alert Course Vital Signs: Vital signs: Vital Signs Temperature 98.8 F 06/02/20 04:32 Pulse Rate 90 06/02/20 07:51 Respiratory Rate 20 H 06/02/20 07:51 Blood Pressure 112/63 06/02/20 07:51 Pulse Oximetry 94 06/02/20 07:51 MDM - Extremity (Nontraumatic) MDM Narrative: Medical decision making narrative: 65-year-old female with likely radiation to the right lower leg. White blood cell count is 5.6. Hemoglobin 12.6. CMP is benign. There is mild elevation in CRP and sed rate, but not enough to be consistent with infection. The patient did get clindamycin here. We will cover her for infectious cellulitis with this as an outpatient. We will give her a fentanyl patch to wear for baseline pain management until she begins to improve. She may use her oxycodone for breakthrough pain. Should get a dose of steroid for the redness and inflammation. Lab Data: Labs: Lab Results 06/02/20 06/02/20 06/02/20 Range/Units 05:27 05:27 05:27 WBC 5.6 (4.0-10.0) 10^3/ uL RBC 4.21 (4.1-5.3) 10^6/u L Hgb 12.6 (11.5-15.3) g/dL Hct 38.3 (37.0-47.0) % MCV 91.0 (81-99) fL MCH 29.9 (28.0-34.0) pg MCHC 32.9 (30.0-36.0) g/dL RDW 12.5 (12.1-15.1) % Plt Count 307 (130-400) 10^3/c mm MPV 9.6 (7.4-10.4) fL Neut % (Auto) 55.1 % Lymph % (Auto) 33.1 % Kenton % (Auto) 9.1 % Eos % (Auto) 1.6 % Baso % (Auto) 0.7 % Neut # (Auto) 3.10 (1.8-7.7) 10^3/u L Lymph # (Auto) 1.9 (0.8-4.8) 10^3/u L Kenton # (Auto) 0.5 (0.2-0.9) 10^3/u L Eos # (Auto) 0.1 (0.0-0.8) 10^3/u L Baso # (Auto) 0.0 (0.0-0.1) 10^3/u L Nucleated RBC % (a uto) 0 % Nucleated RBCs # 0.0 /100WBC ESR 30 H (0-15) mm/hr Sodium 137 (136-145) mmol/L Potassium 4.4 (3.5-5.1) mmol/L Chloride 97 L (98-107) mmol/L Carbon Dioxide 29 (22-29) mmol/L Anion Gap 15.4 (5-19) BUN 21 (8-23) mg/dL Creatinine 1.0 H (0.5-0.9) mg/dL GFR Calculation 55.8 L (90-130) mL/min Glucose 121 H (65-115) mg/dL Calculated Osmolal ity 288 (285-295) mOsm/k g Lactate (0.5-2.2) mmol/L Calcium 9.8 (8.5-10.5) mg/dL Total Bilirubin 0.3 (0.15-1.2) mg/dL AST 27 (0-32) U/L ALT 43 H (0-33) U/L Alkaline Phosphata se 135 H (35-105) IU/L C-Reactive Protein 11.3 H (0.0-4.9) mg/L Total Protein 6.8 (6.6-8.7) g/dL Albumin 4.0 (3.5-5.2) g/dL Globulin 2.8 (1.3-4.6) g/dL Procalcitonin 0.08 (0-0.5) ng/mL 06/02/20 Range/Units 05:27 WBC (4.0-10.0) 10^3/ uL RBC (4.1-5.3) 10^6/u L Hgb (11.5-15.3) g/dL Hct (37.0-47.0) % MCV (81-99) fL MCH (28.0-34.0) pg MCHC (30.0-36.0) g/dL RDW (12.1-15.1) % Plt Count (130-400) 10^3/c mm MPV (7.4-10.4) fL Neut % (Auto) % Lymph % (Auto) % Kenton % (Auto) % Eos % (Auto) % Baso % (Auto) % Neut # (Auto) (1.8-7.7) 10^3/u L Lymph # (Auto) (0.8-4.8) 10^3/u L Kenton # (Auto) (0.2-0.9) 10^3/u L Eos # (Auto) (0.0-0.8) 10^3/u L Baso # (Auto) (0.0-0.1) 10^3/u L Nucleated RBC % (a uto) % Nucleated RBCs # /100WBC ESR (0-15) mm/hr Sodium (136-145) mmol/L Potassium (3.5-5.1) mmol/L Chloride (98-107) mmol/L Carbon Dioxide (22-29) mmol/L Anion Gap (5-19) BUN (8-23) mg/dL Creatinine (0.5-0.9) mg/dL GFR Calculation (90-130) mL/min Glucose (65-115) mg/dL Calculated Osmolal ity (285-295) mOsm/k g Lactate 1.3 (0.5-2.2) mmol/L Calcium (8.5-10.5) mg/dL Total Bilirubin (0.15-1.2) mg/dL AST (0-32) U/L ALT (0-33) U/L Alkaline Phosphata se (35-105) IU/L C-Reactive Protein (0.0-4.9) mg/L Total Protein (6.6-8.7) g/dL Albumin (3.5-5.2) g/dL Globulin (1.3-4.6) g/dL Procalcitonin (0-0.5) ng/mL Discharge Plan Discharge Patient Disposition: Home Clinical Impression: Radiation dermatitis Condition: Stable Prescriptions: New clindamycin HCl 300 mg capsule 300 mg PO Q6H 10 Days Qty: 40 RF: 0 Medrol (Erasto) 4 mg tablets,dose pack See Rx Instructions .ROUTE .COMPLEX Qty: 21 RF: 0 No Action pantoprazole [Protonix] 40 mg tablet,delayed release (DR/EC) 40 mg PO BID Qty: 180 RF: 3 albuterol sulfate [Ventolin HFA] 90 mcg/actuation HFA aerosol inhaler 2 puff INHALATION Q6H PRN (Reason: Shortness Of Breath) RF: 0 metoprolol tartrate 25 mg tablet 12.5 mg PO BID Qty: 90 RF: 3 cephalexin [Keflex] 500 mg capsule 500 mg PO QID RF: 0 oxycodone 5 mg tablet 5 mg PO QID PRNRF: 0 furosemide 40 mg tablet 80 mg PO DAILY@0800 Qty: 60 RF: 3 hydroxyzine pamoate 25 mg capsule See Rx Instructions .ROUTE .COMPLEX Qty: 90 RF: 5 potassium chloride 10 mEq capsule, extended release 10 meq PO DAILY Qty: 30 RF: 0 duloxetine 60 mg capsule,delayed release(DR/EC) 60 mg PO DAILY Qty: 90 RF: 2 lisinopril 5 mg tablet 5 mg PO DAILY Qty: 30 RF: 3 Discharge Orders: Discharge ED (Routine); Ordered 06/02/20 Ordered By: James Benoit Referrals: Grzegorz Sanchez MD [Primary Care Provider] - 4-7 days Discharge Diet: Advance as tolerated Discharge Activity: Increase activity as tolerated Patient Instructions: Radiation Therapy and Skin Care Activity Restrictions/Additional Instructions: Return for fever greater than 100, worsening pain despite treatment, spreading redness despite treatment, other concerning symptoms. Let your radiation oncologist know that you were seen today, and are having problems with the leg. Coding Level of Care Code ED [employer] Consultant for Chg Fwd Exam Detailed
--- NOTE | 2020-06-02 07:14 | PC.NURSE ---
vo obtained for 2-3lpm of o2 via nasal cannula for decreasing sat levels. Dr notified when b/p 92/49. orders for o2 remain
[2020-06-02] MEDS: dexamethasone 10 mg/mL INJ IVP (07:33)
[2020-06-02] MEDS: fentaNYL 25 mcg Patch 1 PATCH TRANSDERMA (07:52)
== END 2020-06-02 07:51 | disposition home or self-care (01) ==
PROVIDERS: Emergency Provider Emergency Medicine; PCP Internal Medicine
DX: L59.8 Other specified disorders of the skin and subcutaneous tissue related to radiation (principal); I10 Essential (primary) hypertension; Z87.891 Personal history of nicotine dependence
CPT/HCPCS: 12345; 80053; 83605; 84145; 85025; 85651; 86140; 93971; 96365; 96375; 99283; 99284; J1100; J1170; J2405; J3490; J7040

== ENCOUNTER 2020-06-02 06:14 | Outpatient (RCR) | payer OTHER, SELFPAY | END 2020-06-15 23:59 | disposition home or self-care (01) | LOC: ONCMED 06:14 | PROVIDERS: PCP Internal Medicine; Visit Provider Radiology Radiation Oncology | DX: Z51.0 Encounter for antineoplastic radiation therapy (principal); C49.21 Malignant neoplasm of connective and soft tissue of right lower limb, including hip | CPT/HCPCS: 77336; 77387; 77412 ==

== ENCOUNTER 2020-07-04 06:55 | Outpatient (RCR) | payer OTHER, SELFPAY ==
[2020-07-03 12:56] LABS: Basophils % 0.6 %; Eosinophils # 0.1 10^3/uL (0.0-0.8); Eosinophils % 1.7 %; Hematocrit 39.6 % (37.0-47.0); Lymphocytes # 1.8 10^3/uL (0.8-4.8); Lymphocytes % 38.5 %; Mean Corpuscular HGB Conc 32.8 g/dL (30.0-36.0); Mean Corpuscular Hemoglobin 29.4 pg (28.0-34.0); Mean Corpuscular Volume 89.6 fL (81-99); Mean Platelet Volume 9.3 fL (7.4-10.4); Monocytes # 0.4 10^3/uL (0.2-0.9); Neutrophils # 2.34 10^3/uL (1.8-7.7); Neutrophils % 50.8 %; Nucleated Red Blood Cells % 0 %; Platelet Count 286 10^3/cmm (130-400); Red Blood Count 4.42 10^6/uL (4.1-5.3); Red Cell Distribution Width 13.3 % (12.1-15.1); White Blood Count 4.6 10^3/uL (4.0-10.0)
[2020-07-03 13:32] LABS: Erythrocyte Sedimentation Rate 20 mm/hr (0-15)
[2020-07-03 13:35] LABS: Alanine Aminotransferase 65 U/L (0-33); Albumin Level 4.2 g/dL (3.5-5.2); Alkaline Phosphatase 125 IU/L (35-105); Anion Gap 15.1 (5-19); Aspartate Amino Transferase 52 U/L (0-32); Blood Urea Nitrogen 12 mg/dL (8-23); C Reactive Protein 3.5 mg/L (0.0-4.9); Calcium 9.2 mg/dL (8.5-10.5); Carbon Dioxide 25 mmol/L (22-29); Chloride 104 mmol/L (98-107); Globulin 2.9 g/dL (1.3-4.6); Glomerular Filtration Rate 72.2 mL/min (90-130); Glucose 101 mg/dL (65-115); Osmolality Calculated 290 mOsm/kg (285-295); Potassium 4.1 mmol/L (3.5-5.1); Sodium 140 mmol/L (136-145); Thyroid Stimulating Hormone 1.57 uIU/mL (0.27-4.20); Total Bilirubin 0.4 mg/dL (0.15-1.2); Total Protein 7.1 g/dL (6.6-8.7)
--- NOTE | 2020-07-03 17:45 | ONC CON_ITS ---
Dr. Maria New Patient Note Patient: Dennise Funes < Unit #: [id number]: 1955 Dicatated By: Dhruv Maria M.D.Date of Visit: Jul 03, 2020 Onc MED New Patient/Consult Referring Physician: Dr. Yury Verdugo M.D. Chief Complaint: Undifferentiated pleomorphic sarcoma. 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 In January 2020 she was admitted to the hospital with shortness of breath and fluid retention, presumably due to diastolic congestive heart failure. At that time she also had swelling in her right leg and a palpable mass in the area of the right knee. MRI of the right knee on 01/23/2020 showed a T2 hyperintense lobulated enhancing mass measuring 3.9 x 2.2 x 2.8 cm, suspicious for neoplasm. She underwent ultrasound directed biopsy of the mass on 01/24/2020. 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 Her CT scans of the chest, abdomen, and pelvis on 01/31/2020 showed no evidence of metastatic disease. She was seen by Dr. Yury Verdugo at [facility] on 02/06/2020, and on 02/14/2020 she underwent wide excision of the mass in the right posterior lateral knee area. 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 The tumor measured 5.0 x 4.1 x 3.0 cm. It was noted to have a mitotic rate of 39/10 hpf. There was estimated 20% tumor necrosis. The resection margins were negative for tumor, but there was tumor noted less than 0.1 cm from the deep margin. She was seen by Dr. Murphy for postoperative radiation. Her treatment initially was delayed for adequate wound healing. She eventually began radiation on 04/08/2020, and she completed treatment on 06/02/2020 to a total dose of 6000 cGy administered in 30 fractions. Her treatment was complicated by methicillin sensitive staph aureus wound infection and cellulitis of the right leg. She otherwise tolerated the treatment well. She is seen now for continuation of her follow-up care for the sarcoma. Her main complaint is that she is still having significant pain at the site of the wound infection in the right popliteal area. It has improved somewhat since she restarted antibiotic therapy with doxycycline last week. She also has significant pain from the right knee extending up to the right groin and it is associated with the [id number]-tub-[id number] sensation in her right thigh. She colonel he is on a fentanyl patch at 25 mcg/h and she has had immediate release oxycodone to take as needed for pain. She complains that she is really tired and that she gives out easily. She is able to do light work, though. Her ECOG score is 1. Her appetite comes and goes. She has gained weight. She occasionally has low-grade fever, and she also has had episodes of chills and sweating. She is on CPAP for obstructive sleep apnea. She says her breathing has been okay. She does not complain of cough and she has not been having chest pain. She has nausea off and on. Bowel and bladder function have been okay. She does not complain of headache. She occasionally has lightheadedness. She has had no other focal neurologic symptoms. Past Medical History: Her medical history includes anxiety, degenerative arthritis, depression, diastolic congestive heart failure, gastroesophageal reflux disease, hypertension, metabolic syndrome, and sleep apnea. Past Surgical History: She underwent wide excision of mass in the right posterior lateral knee area on 02/14/2020. Her other surgical/procedural history includes appendectomy, hernia repair, partial hysterectomy, tubal ligation, open reduction for left fifth metatarsal fracture in 2019, right total hip arthroplasty in 2017, and left total hip arthroplasty in 2017. Medications: DULoxetine HCl 1 Capsule (of 30 mg) Capsule Delayed Release Particles Oral daily, Furosemide 1 (40 mg) Tablet Oral daily, Klor-Con 10 1 (10 meq) Tablet, controlled release Oral daily, Lisinopril 1 (5 mg) Tablet Oral daily, Metoprolol Tartrate Tablet Oral, Pantoprazole Sodium 1 (20 mg) Tablet, enteric coated Oral b.i.d. Allergies: Amoxicillin, Penicillins, and Phenytoin Sodium Extended. Social History: Ms. Funes is single. 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 She has a history of smoking 2 packs of cigarettes daily for 35 years. She quit smoking in 2014. She does not drink alcohol. Family History: Father had prostate cancer but he of heart attack. Mother also of heart attack. A sister had melanoma and with some rare form of lung cancer. A 73-year-old brother was previously treated for colon cancer. Review Of Symptoms: Constitutional - She has been feeling really tired and she gives out easily. She is able to do light work. Her appetite comes and goes. She has gained weight. She occasionally has low-grade fever. She also has episodes of chills and sweating. ECOG score is 1, Eyes - No change in vision, ENMT - No hearing loss or tinnitus. No sinus congestion/drainage. No mouth sores. She sometimes has sore throat. No difficulty swallowing, Hematologic/Lymphatic - No abnormal bruising or bleeding, Respiratory - She is on CPAP. Her breathing is okay. No cough. No pleuritic pain or hemoptysis, Cardiovascular - No angina pain. No palpitations, Gastrointestinal - She has nausea off and on. Her acid reflux is adequately managed with medication. No diarrhea or constipation. No blood in the stool or black stools, Genitourinary (F) - No dysuria or hematuria. No urinary frequency. No urgency or incontinence, Musculoskeletal - She has episodes of sharp pain behind the right knee and she also has pain in her right leg from her knee up to the groin, Integumentary - She has been treated for a methicillin sensitive staph aureus wound infection/cellulitis, Neurologic - No headache. She has occasional lightheadedness. She has a hwig-mss-xycgxku sensation in her right thigh area. No other focal neurologic symptoms, Psychiatric - She has anxiety and depression, but it has improved on medication. She sleeps okay with CPAP. Vital Signs: Performed on Jul 03, 2020 12:04: 7, 3, 34.78 (HIGH), 1.97 sq.m, 64.00 in, 96 %, 83 /min, 18 /min, 154/79 mm(hg) (HIGH), 97.7 F (LOW), and 202.6 lbs (HIGH). Physical Examination: Constitutional - She looks pretty good generally, Eyes - Sclerae nonicteric. Conjunctivae clear, ENMT - No lesions noted in the oral cavity, Neck - No mass or thyromegaly, Hematologic/Lymphatic - No cervical, clavicular, or axillary adenopathy, Respiratory - Lungs sound clear with some decrease in air movement bilaterally, Cardiovascular - Heart rhythm is regular. There is a I/ systolic murmur. There is no gallop or rub noted, Abdomen - Soft and non-tender. Liver and spleen are not enlarged. There is no abdominal mass or ascites noted and there is no inguinal adenopathy, Back/Spine - No spine or CVA tenderness noted, Extremities - There is mild swelling of the right leg. There is residual erythema at the infection site in the area of the right popliteal fossa. Dorsalis pedis pulses are palpable bilaterally, Integumentary - No suspicious skin lesions noted, Neurologic - No focal neurologic deficits noted. Problem List: 1. 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 2. Hypertension. 3. Metabolic syndrome. 4. History of diastolic congestive heart failure. 5. GERD. 6. Obstructive sleep apnea. 7. Degenerative arthritis. 8. Anxiety/depression. Problems Addressed with this Encounter and Plan: 1. 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 She underwent wide excision on 02/14/2020. Margins were uninvolved, but there was tumor noted within <0.1 cm of the deep margin. She underwent postoperative radiation, completed on 06/02/2020 to a total dose of 6000 cGy administered over 30 fractions. She is now being followed on observation/expectant management. She will have repeat laboratory studies today to include CBC, comprehensive metabolic profile, TSH level, sed rate, and CRP level. I will tentatively plan a follow-up visit with surveillance CT scans in 1 month. 2. She has persistent pain in the right leg, which I suspect is multifactorial. At least some component appears to be associated with the staph aureus wound infection, for which she had recently restarted antibiotic therapy with doxycycline. I suspect this require a more prolonged course of antibiotic therapy, and I will have her continue the doxycycline at 100 mg every 12 hours for an additional 15 days, following which she will continue at 100 mg daily. 3. She also appears to have a component of neuropathic pain in the right leg. I will now have her start gabapentin at 300 mg 3 times daily. She will continue the fentanyl patch at 25 mcg/h and she will also continue immediate release oxycodone as needed. The dosages will be further adjusted as needed. Signed By: Dhruv Maria M.D. <<Signature on File>>
--- NOTE | 2020-07-04 12:04 | ONCRAD EPV_ITS ---
Radiation Oncology Follow-Up Note Patient Name: Dennise Funes Date of : 1955 Date of Service: 07/04/2020 Attending Physician: Luis Armando Piedra M.D. Dennise Funes returned to my office this morning for a routinely scheduled follow-up appointment. She completed adjuvant right lower extremity radiotherapy in May for the management a pathological stage III (T3N0) undifferentiated pleomorphic sarcoma of the right popliteal fossa with a high mitotic rate, 20% tumor necrosis, and close surgical margins (1 mm). Daily radiotherapy was administered between the dates of April 08, 2020 through June 02, 2020. A prescribe dose of 60 Gy was delivered in 30 fractions encompassing 56 elapsed days. Upon review of systems, she continued to describe pain in the surgical bed. On physical examination, the patient weighed 202 lbs. Her temperature was 99 ???F with a blood pressure of 148/82 mmHg. The pulse was 79 bpm and her respiratory rate was 18. Mild erythema was noted in the right popliteal fossa. In summary, Ms. Funes returned for a routine post radiotherapy follow-up. There are no residual adverse effects from radiotherapy. She will continue close observation with orthopedic oncology at [facility]. Signed by: Dr. Luis Armando Piedra 07/04/2020 12:02:36 PM
== END 2020-07-13 23:59 | disposition home or self-care (01) ==
LOC: ONCMED 06:55
PROVIDERS: Absent Provider Radiology Radiation Oncology; PCP Internal Medicine; Visit Provider Radiology Radiation Oncology
DX: C49.21 Malignant neoplasm of connective and soft tissue of right lower limb, including hip (principal); R53.83 Other fatigue; L03.115 Cellulitis of right lower limb; B95.61 Methicillin susceptible Staphylococcus aureus infection as the cause of diseases classified elsewhere; Z79.891 Long term (current) use of opiate analgesic; Z92.3 Personal history of irradiation; Z79.899 Other long term (current) drug therapy
CPT/HCPCS: 80053; 84443; 85025; 85651; 86140; 99205

== ENCOUNTER 2020-07-24 06:04 | Outpatient (RCR) | payer OTHER, SELFPAY ==
--- NOTE | 2020-08-07 22:00 | ONC FU_ITS ---
[facility] Patient Note Patient: Dennise Funes Unit #: [id number]: 1955 Dictated By: Juana BanegasDate of Visit: Jul 24, 2020 Onc MED Follow-Up/Prog Note Chief Complaint: Undifferentiated pleomorphic sarcoma. 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 In January 2020 she was admitted to the hospital with shortness of breath and fluid retention, presumably due to diastolic congestive heart failure. At that time she also had swelling in her right leg and a palpable mass in the area of the right knee. MRI of the right knee on 01/23/2020 showed a T2 hyperintense lobulated enhancing mass measuring 3.9 x 2.2 x 2.8 cm, suspicious for neoplasm. She underwent ultrasound directed biopsy of the mass on 01/24/2020. 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 Her CT scans of the chest, abdomen, and pelvis on 01/31/2020 showed no evidence of metastatic disease. She was seen by Dr. Yury Verdugo at [facility] on 02/06/2020, and on 02/14/2020 she underwent wide excision of the mass in the right posterior lateral knee area. 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 The tumor measured 5.0 x 4.1 x 3.0 cm. It was noted to have a mitotic rate of 39/10 hpf. There was estimated 20% tumor necrosis. The resection margins were negative for tumor, but there was tumor noted less than 0.1 cm from the deep margin. She was seen by Dr. Murphy for postoperative radiation. Her treatment initially was delayed for adequate wound healing. She eventually began radiation on 04/08/2020, and she completed treatment on 06/02/2020 to a total dose of 6000 cGy administered in 30 fractions. Her treatment was complicated by methicillin sensitive staph aureus wound infection and cellulitis of the right leg. She otherwise tolerated the treatment well. Ms Funes follows with Dr Maria for continuation of her follow-up care for the sarcoma. Her main complaint at his last visit with her was that she was still having significant pain at the site of the wound infection in the right popliteal area. It had improved somewhat with antibiotic therapy with doxycycline. She also had significant pain from the right knee extending up to the right groin and it wa associated with the [id number] sensation in her right thigh. She had been maintained on a fentanyl patch at 25 mcg/h and she had immediate release oxycodone to take as needed for pain. She states that she is having more pain now that she is returned to work. She works at [employer]. She states she is try to be more active but is having more pain. She denies any fever or chills. She is eating well. She is tolerating work well other than the pain. Her pain had been controlled with the fentanyl patch at 25 mics but she is now requesting that be increased as she is having significant discomfort when she gets home from working all night. She also has been taking 2 of the oxycodones at a time and this works well but would like the 10 mg tablet if possible. She tolerates the gabapentin well thinks it has helped but not as good as the first it. We did discuss slowly titrated up to a max dose of 900 mg 3 times a day. She states the wound continues to take its time to heal. There is been some drainage off and on. She denies any purulent drainage. She denies any fever or redness around the wound. She denies any pain. Her ECOG is 1. Past Medical History: Anxiety Degenerative arthritis Depression Diastolic congestive heart failure Gastroesophageal reflux disease Hypertension Metabolic syndrome Sleep apnea Past Surgical History: Appendectomy Hernia repair Partial hysterectomy Tubal ligation Wide excision of mass in the right posterior lateral knee area in 2019 Open reduction for left fifth metatarsal fracture in 2019 Right total hip arthroplasty in 2017 Left total hip arthroplasty in 2017 Allergies: Amoxicillin, Penicillins, and Phenytoin Sodium Extended. Medications: DULoxetine HCl 1 Capsule (of 30 mg) Capsule Delayed Release Particles Oral daily fentaNYL 1 Patch(es) (of 25 mcg/hr) Patch 72 Hr Transdermal q 72 hours PRN Furosemide 1 (40 mg) Tablet Oral daily Gabapentin 3 Capsule (of 300 mg) Oral t.i.d. Klor-Con 10 1 (10 meq) Tablet, controlled release Oral daily Lisinopril 1 (5 mg) Tablet Oral daily Metoprolol Tartrate Tablet Oral oxyCODONE HCl 1 - 2 Tablet (of 5 mg) Oral q 4 to 6 hours PRN Pantoprazole Sodium 1 (20 mg) Tablet, enteric coated Oral b.i.d. Family History: Ms. Funes's mother is : heart attack. Ms. Funes's father is : Prostate Cancer, and heart attack. Ms. Funes has 1 brother who is : colon cancer. Father had prostate cancer but he of heart attack. Mother also of heart attack. A sister had melanoma and with some rare form of lung cancer. A 73-year-old brother was previously treated for colon cancer. Social History: Ms. Funes is single. Ms. Funes quit smoking 6 years ago but had smoked 2.0 packs/day for 35 years. She has no history of drinking. 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 She has a history of smoking 2 packs of cigarettes daily for 35 years. She quit smoking in 2014. She does not drink alcohol. Review Of Symptoms: Constitutional Denies fevers, chills, night sweats, excessive fatigue or weight loss. Allergic/Immunologic No reactions. Eyes Denies significant visual changes. No diplopia. No amaurosis. ENMT Denies changes in hearing, sore throat, mouth sores, difficulty or changes in swallowing ability, and/or sinus drainage. Hematologic/Lymphatic Denies easy bruising or bleeding. The patient denies any tender or palpable lymph nodes. Respiratory Denies dyspnea on exertion, chest pain, cough or hemoptysis. Denies orthopnea. Cardiovascular Denies anginal chest pain, palpitations or orthopnea. Gastrointestinal Denies nausea, vomiting, diarrhea, GI bleeding, or constipation. Denies change in bowel habits and/or stool color, no heartburn or early satiety. Genitourinary (F) No hematuria, hesitancy, incontinence, vaginal bleeding, discharge or other problems with urination. Musculoskeletal Denies joint pain, swelling or redness. No decreased range of motion. Right lower leg pain as above Integumentary Denies chronic rashes, inflammation, ulcerations or skin changes. Neurologic Denies headache, blurred vision, and no areas of focal weakness or numbness. Normal gait. No sensory problems. Psychiatric Denies insomnia, depression, sushila or mood swings. Vital Signs: Performed on Jul 24, 2020 13:43 Height - 64.00 in Weight - 200.8 lbs (LOW) BSA - 1.96 sq.m BMI - 34.47 (HIGH) Temperature - 98.0 F (LOW) Pulse - 78 /min Respiration - 17 /min BP - 156/79 mm(hg) (HIGH) O2 Sat - 97 % Pain - 6,1 - No physically strenuous activity, but ambulatory and able to carry out light or sedentary work (e.g. office work, light house work). (ECOG) Physical Examination: Constitutional Alert, oriented, no acute distress. Skin pink, warm and dry. Head Normocephalic; atraumatic. Eyes Conjunctivae and sclerae are clear and without icterus. Pupils are reactive and equal. ENMT No oral exudates, ulcers, masses, thrush or mucositis. Oropharynx clear. Tongue normal. Neck Supple without masses or thyromegaly. No jugular venous distension. Hematologic/Lymphatic No petechiae or purpura. No tender or palpable lymph nodes in the cervical or supraclavicular areas. Respiratory Lungs are clear to auscultation without rhonchi or wheezing. Cardiovascular Regular rate and rhythm of heart without murmurs,clicks, gallops or rubs. Chest Chest is symmetric without chest wall deformities. Abdomen Non-tender, non-distended, no masses or ascites. Good bowel sounds noted in all quads. No guarding or rebound tenderness. No pulsatile masses. Back/Spine Non-tender to palpation. Extremities No visible deformities, no cyanosis, clubbing or edema. Musculoskeletal No tenderness or swelling, normal range of motion without obvious weakness. Right lower extremity with moderately red, scabbed area with no exudate at present. Integumentary No rashes or lesions. Neurologic No sensory or motor deficits, normal cerebellar function, normal gait. Psychiatric Alert and oriented times three. Coherent speech. Verbalizes understanding of our discussions today. Laboratory:Test performed on May 20, 2020 14:50 Wound Culture DAY 3 G F Impression: 1. 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 2. Hypertension. 3. Metabolic syndrome. 4. History of diastolic congestive heart failure. 5. GERD. 6. Obstructive sleep apnea. 7. Degenerative arthritis. 8. Anxiety/depression. Plan: 1. 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 She underwent wide excision on 02/14/2020. Margins were uninvolved, but there was tumor noted within <0.1 cm of the deep margin. She underwent postoperative radiation, completed on 06/02/2020 to a total dose of 6000 cGy administered over 30 fractions. A. Proceed with observation/expectant management. B. Dr. Maria has requested a CT of the chest with contrast as well as CT abdomen pelvis with contrast those tests have not been obtained yet. She did not have any labs drawn prior to this visit either. C. She will have repeat laboratory studies to include CBC, comprehensive metabolic profile, TSH level, sed rate, and CRP level. I requested follow-up in the next 2 weeks if the CTs are obtained so that information can be reviewed with her. 2. She has persistent pain in the right leg, which seems to be multifactorial. At least some component appears to be associated with the staph aureus wound infection, for which she had recently restarted antibiotic therapy with doxycycline. Dr Maria had advised her to attempt a more prolonged course of antibiotic therapy, and had her continue the doxycycline at 100 mg every 12 hours for an additional 15 days, following which she now continues at 100 mg daily. A. A referral was made to the wound clinic for the nonhealing wound lesion on her leg. 3. She also appears to have a component of neuropathic pain in the right leg. She states it has gotten worse since she has resumed walking so much as she has returned to work A. May titrate gabapentin to a max dose of 300 mg up to 3 tablets 3 times daily. B. She will increase the fentanyl patch to 50 mcg/hr C. She will also continue immediate release oxycodone but increase to 10 mg as needed. The dosages will be further adjusted as needed. Signed By: Juana Banegas-LEVAR, [facility] Dhruv Maria MD <<Signature on File>>
== END 2020-07-28 12:00 | disposition home or self-care (01) ==
LOC: ONCMED 06:04
PROVIDERS: Absent Provider Radiology Radiation Oncology; PCP Internal Medicine; Visit Provider Nurse Practitioner
DX: C49.21 Malignant neoplasm of connective and soft tissue of right lower limb, including hip (principal); I10 Essential (primary) hypertension; E88.81 Metabolic syndrome and other insulin resistance; K21.9 Gastro-esophageal reflux disease without esophagitis; G47.33 Obstructive sleep apnea (adult) (pediatric); M19.90 Unspecified osteoarthritis, unspecified site; F41.9 Anxiety disorder, unspecified; F32.9 Major depressive disorder, single episode, unspecified; I50.30 Unspecified diastolic (congestive) heart failure; Z92.3 Personal history of irradiation; Z79.899 Other long term (current) drug therapy
CPT/HCPCS: 99214

== ENCOUNTER 2020-07-28 13:56 | Day surgery (SDC) | payer OTHER, SELFPAY ==
[2020-07-28] VITALS (7 sets, daily range): BP systolic 75–146; BP diastolic 54–84; PULSE 88–95; RESP 16–18; TEMP 36–37; O2SAT 91–99
[2020-07-28] MEDS: sodium chloride 0.9% 1,000 ML 30 ML IV (14:33)
--- NOTE | 2020-07-28 15:55 | ANE.PACU2 ---
Inpatient post-anesthesia follow up: Airway intact: Yes Vital signs: Temperature 96.8 F Pulse Rate 91 Respiratory Rate 16 Blood Pressure 129/58 Pulse Oximetry 94 Oxygen Delivery Me thod Room Air Oxygen Flow Rate 2 Fraction of Inspir ed Oxygen Hydration adequate: Yes Nausea and vomiting: No Pain level: 1 Mental status: Baseline
== END 2020-07-28 14:20 | disposition home or self-care (01) ==
PROVIDERS: PCP Internal Medicine; Visit Provider Internal Medicine
PROC: 0DJ08ZZ Inspection of Upper Intestinal Tract, Via Natural or Artificial Opening Endoscopic (ICD-10-PCS; CPT 43235; principal; 2020-07-28 14:00)
DX: R10.13 Epigastric pain (principal); K29.70 Gastritis, unspecified, without bleeding; K31.89 Other diseases of stomach and duodenum; K92.0 Hematemesis; F41.9 Anxiety disorder, unspecified; F32.9 Major depressive disorder, single episode, unspecified; K21.9 Gastro-esophageal reflux disease without esophagitis; I10 Essential (primary) hypertension; G47.30 Sleep apnea, unspecified
CPT/HCPCS: 43235; 80053; 85025; 85049; 85384; 85610; 85730; 96360; J0330; J1100; J2250; J2405; J2704; J3010; J7030

== ENCOUNTER 2020-07-31 08:07 | Outpatient (CLI) | payer OTHER, SELFPAY | END 2020-07-31 08:08 | disposition home or self-care (01) | LOC: WOUND 08:07 | PROVIDERS: PCP Internal Medicine; Visit Provider Nurse Practitioner Family | DX: T81.89XA Other complications of procedures, not elsewhere classified, initial encounter (principal) | CPT/HCPCS: 87070; 87075; 87205; 99212 ==

== ENCOUNTER 2020-08-05 20:50 | Emergency (ER) | payer OTHER, SELFPAY ==
[2020-08-05 21:03] VITALS: BP 163/63; PULSE 87; RESP 18; TEMP 37.1; O2SAT 94; BMI 30.7
--- NOTE | 2020-08-05 23:15 | W.ED.FALL ---
HPI - Fall General: Chief Complaint: Fall Stated Complaint: workers comp, fell out of chair Time Seen by Provider: 08/05/20 23:09 History of Present Illness: HPI Narrative: Patient is a 65-year-old female comes to the ED with tailbone pain after fall. Patient works at the [employer] and injury occurred while she was at work. Patient says she went to sit down in her chair and it fell over causing her tailbone to hit the ground. She states that her head lightly hit the wall but she denies any loss of consciousness, head pain or headache. She says all her pain is in her tailbone region. Pain rated a 6 out of 10. Associated symptoms-after fall: Denies abdominal pain, chest pain, headache(s), hematuria or neck pain Review of Systems Const: Denies: fever(s), chills or fatigue Eyes: Denies: change in vision or eye discomfort ENMT: Denies: throat pain, odynophagia, nasal discharge or nasal congestion Card: Denies: chest pain, palpitations, edema, swelling of feet/ankles, dyspnea on exertion or orthopnea Resp: Denies: dyspnea, productive cough or non-productive cough GI: Denies: abdominal pain, nausea, vomiting, diarrhea, constipation or hematochezia : Denies: flank pain, dysuria or hematuria Musc: Reports: back pain (Tailbone pain); Denies: neck pain or extremity swelling Skin/Breast: Denies: rash or new lesions Neuro: Denies: headache(s), numbness in extremities or weakness in extremities [facility] ED PFSH: Medical History Anxiety and depression GERD (gastroesophageal reflux disease) History of nonmelanoma skin cancer Hypertension Lisinopril, Lasix added. Metabolic syndrome Sleep apnea Surgical History H/O tubal ligation History of hernia repair History of partial hysterectomy History of total left hip arthroplasty DOS: 04/22/2017 Dr. Bean History of total right hip arthroplasty Hx of appendectomy Family History Mother Family history of premature coronary artery disease Hypertension Brother Cancer Hypertension Sister Cancer Father Family history of premature coronary artery disease Hypertension Denies family history of Diabetes CAD (coronary artery disease) Clotting disorder Dementia Hyperlipidemia Psychiatric illness Chronic kidney disease (CKD) Suicide Anesthesia complication Bleeding disorder Lung disease Stroke Social History Smoking and tobacco status: former smoker Quit status (tobacco): has quit using tobacco Former quit date comment: 4 years ago Second hand smoke exposure: No Alcohol intake: never Adopted: No Caregiver/support person: Yes Lives independently: Yes Marital status: Single Current occupational status: employed 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 History of recent travel: No Physical Exam Const: COMMON NORMALS: no acute distress, patient oriented x3 and alert GENERAL APPEARANCE: cooperative and comfortable HENMT: COMMON NORMALS: normocephalic HEAD & SCALP: normocephalic MOUTH: Normal oral and palatal mucosa present THROAT: posterior oropharynx normal and uvula midline Eye: COMMON NORMALS: Equal, round and reactive pupils present and EOMs intact bilaterally PUPIL: Yes Equal, round and reactive pupils present Neck/C-Spine: COMMON NORMALS: supple GENERAL: Yes normal visual inspection Resp: COMMON NORMALS: normal respiratory effort, No retractions, No use of accessory muscles and clear to auscultation bilaterally AUSCULTATION: clear to auscultation bilaterally Cardio: COMMON NORMALS: regular rate, regular rhythm, S1 normal heart sound present, S2 normal heart sound present, No gallops present (Cardio), No clicks present (Cardio), No murmurs present (Cardio) and Peripheral pulses 2+ throughout RATE: regular rate RHYTHM: regular rhythm HEART SOUNDS: S1 normal heart sound present and S2 normal heart sound present PERIPHERAL PULSES: Peripheral pulses 2+ throughout GI: COMMON NORMALS: Normal to inspection, nondistended, normoactive bowel sounds present, Soft to palpation, non-tender and no masses PALPATION: Yes Soft to palpation : COMMON NORMALS: Yes no CVA tenderness BLADDER/KIDNEY EXAM: Yes no CVA tenderness Back/Pelvis: COMMON NORMALS: no CVA tenderness COCCYX: Coccyx tenderness present on direct palpation Extremity: COMMON NORMALS: normal to inspection Neuro: COMMON NORMALS: patient oriented x3, CN's II-XII intact bilaterally, moves all extremities, no focal motor deficits and no sensory deficits noted SENSORIUM/ORIENTATION: Yes alert SPEECH: speech normal GAIT: Yes Normal gait present MOTOR EXAM: 5/5 motor strength present throughout Skin: GENERAL SKIN EXAM: dry skin Course Vital Signs: Vital signs: Vital Signs Temperature 98.8 F 08/05/20 21:03 Pulse Rate 78 08/06/20 00:27 Respiratory Rate 18 08/06/20 00:27 Blood Pressure 163/63 08/05/20 21:03 Pulse Oximetry 99 08/06/20 00:27 MDM - Fall MDM Narrative: Medical decision making narrative: Patient is a 65-year-old female comes to the ED after having a fall at work. 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 Her main complaint is tailbone pain. Patient has tenderness upon palpation over the coccyx. X-ray of the sacrum coccyx showed no acute fractures or findings. Patient was diagnosed with tailbone pain and given a dose of Toradol while here in the ED. She was told apply cold pack on her tailbone and to use multiple cushions when sitting to help with symptoms. I filled out and signed the Worker's Comp. paperwork here in the ED. Patient was discharged and told to follow-up with her PCP in 7 to 10 days for reevaluation. Return to ED precautions given. Patient understood agree with plan. Imaging Data^: Xray Ortho: Attestation: I personally reviewed and interpreted this imaging study as follows: My impression: Sacrum and coccyx x-ray showed no acute fractures or findings. Discharge Plan Discharge Patient Disposition: Home Clinical Impression: Tail bone pain Condition: Stable Prescriptions: No Action albuterol sulfate [Ventolin HFA] 90 mcg/actuation HFA aerosol inhaler 2 puff INHALATION Q6H PRN (Reason: Shortness Of Breath) RF: 0 metoprolol tartrate 25 mg tablet 12.5 mg PO BID Qty: 90 RF: 3 furosemide 40 mg tablet 80 mg PO DAILY@0800 Qty: 60 RF: 3 oxycodone 5 mg tablet 10 mg PO QID PRN (Reason: Pain) RF: 0 fentanyl 25 mcg/hr patch 72 hour 1 patch transdermal Q72H 30 Days Qty: 10 RF: 0 potassium chloride 10 mEq capsule, extended release 10 meq PO DAILY Qty: 30 RF: 0 duloxetine 60 mg capsule,delayed release(DR/EC) 60 mg PO DAILY Qty: 90 RF: 2 lisinopril 5 mg tablet 5 mg PO DAILY Qty: 30 RF: 3 hydroxyzine pamoate 25 mg capsule See Rx Instructions .ROUTE .COMPLEX Qty: 90 RF: 5 doxycycline hyclate 100 mg tablet 100 mg PO BID 14 Days Qty: 28 RF: 0 pantoprazole 40 mg tablet,delayed release (DR/EC) See Rx Instructions .ROUTE .COMPLEX Qty: 180 RF: 2 Motegrity 2 mg tablet 2 mg PO DAILY Qty: 30 RF: 8 Discharge Orders: Discharge ED (Routine); Ordered 08/06/20 Ordered By: Julio César Ceballos Referrals: Grzegorz Sanchez MD [Primary Care Provider] - Discharge Diet: Regular Discharge Activity: Increase activity as tolerated Activity Restrictions/Additional Instructions: Follow-up with medical provider as directed in 7 to 10 days. Apply cold pack on tailbone to help with symptoms. Use multiple cushions when sitting down to help with symptoms as well. Take medications as prescribed. Return to the ER or your medical provider if condition worsens. Please read and understand discharge instructions. If any questions, please ask. Stand Alone Forms: Work/School Release Coding Level of Care Code ED Equipment Scheduler for [employer] Fwd Exam Comprehensive
--- NOTE | 2020-08-05 23:21 | XR_ITS ---
WS: [id number] Exam: XR sacrum coccyx min 2V 33275 Date/Time of Exam: 08/05/2020 11:42 PM Reason For Exam: fall with tailbone pain No acute fracture or dislocation. Mild DJD of the SI joints. The coccyx is intact. XR/XR sacrum coccyx min 2V [id number] IMPRESSION: 1. No acute fracture of the sacrum or coccyx. DJD.
[2020-08-05] MEDS: ketorolac 60 mg/2 mL INJ IM (23:36)
[2020-08-06 00:27] VITALS: PULSE 78; RESP 18; O2SAT 99
== END 2020-08-06 00:28 | disposition home or self-care (01) ==
PROVIDERS: Emergency Provider Physician Assistant; PCP Internal Medicine
DX: M53.3 Sacrococcygeal disorders, not elsewhere classified (principal); I10 Essential (primary) hypertension; Z87.891 Personal history of nicotine dependence
CPT/HCPCS: 72220; 96372; 99283; J1885

== ENCOUNTER 2020-08-07 08:07 | Outpatient (CLI) | payer OTHER, SELFPAY | END 2020-08-07 08:08 | disposition home or self-care (01) | LOC: WOUND 08:12 | PROVIDERS: PCP Internal Medicine; Visit Provider Nurse Practitioner Family | DX: L97.812 Non-pressure chronic ulcer of other part of right lower leg with fat layer exposed (principal); T81.89XA Other complications of procedures, not elsewhere classified, initial encounter; Y83.8 Other surgical procedures as the cause of abnormal reaction of the patient, or of later complication, without mention of misadventure at the time of the procedure; Z87.891 Personal history of nicotine dependence | CPT/HCPCS: 11042 ==

== ENCOUNTER 2020-08-14 08:18 | Outpatient (CLI) | payer OTHER, SELFPAY | END 2020-08-14 08:19 | disposition home or self-care (01) | LOC: WOUND 08:20 | PROVIDERS: PCP Internal Medicine; Visit Provider Nurse Practitioner Family | DX: T81.89XA Other complications of procedures, not elsewhere classified, initial encounter (principal); Y83.8 Other surgical procedures as the cause of abnormal reaction of the patient, or of later complication, without mention of misadventure at the time of the procedure; L97.812 Non-pressure chronic ulcer of other part of right lower leg with fat layer exposed; Z87.891 Personal history of nicotine dependence | CPT/HCPCS: 11042 ==

== ENCOUNTER 2020-08-14 11:49 | Outpatient (CLI) | payer OTHER, SELFPAY ==
--- NOTE | 2020-08-14 12:06 | CT_ITS ---
WS: [id number] CT CHEST, ABDOMEN AND PELVIS WITH CONTRAST HISTORY: UNDIFFERENTIATED PLEOMORPHIC SARCOMA TECHNIQUE: Contiguous 5 mm axial imaging performed through the chest, abdomen and pelvis with IV cont rast, oral contrast has been provided. Coronal and sagittal reformats chest. Coronal and sagittal ref ormats through the abdomen and pelvis. All CT scans at [facility] use at least one of the se dose optimization techniques: automated exposure control; mA and/or kV adjustment per patient size (includes targeted exams where dose is matched to clinical indication); or iterative reconstruction. CONTRAST: Omnipaque 300; 95 mL IV. DLP: 1791.77 mGy.cm COMPARISON: 01/31/[address]: Linear platelike area of scar or atelectasis LEFT upper lobe is stable. 7 mm noncalcified n odule in the medial LEFT upper lobe, image 14 of series 4. This nodule was first seen on 01/20/2020 but has very minimally increased in size. Mild atherosclerosis aorta. Normal size pulmonary artery. No m ediastinal or hilar lymph nodes. Subcentimeter lymphoid tissue at the hilar regions bilaterally is st able. Heart size is normal. Small hiatal hernia. Abdomen CT: Hypervascular 14 mm mass in the LEFT lobe of the liver is stable and probably a small hem angioma. Was an additional hemangioma seen on the most recent study in the LEFT lateral segment of th e liver but this is not seen today. Prior cholecystectomy. Spleen and pancreas are normal. Bilateral adrenal glands adenomas. The largest on the RIGHT measures 2.4 x 3.3 cm. Mild bilateral cortical thin carmita of each kidney with no obstruction. No solid mass within either kidney. Several small cysts in t he LEFT kidney with the largest measuring 1.2 cm. Extensive atherosclerosis within the abdominal aort a. 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 Similar to prior examina tion. Post surgical repair of an abdominal wall hernia. No GI tract obstruction. Retroperitoneal mese nteric lymph nodes. Pelvic CT: No free fluid. No pelvic adenopathy. Advanced degenerative disc disease at L4-5. No destructive osseous lesions. Bilateral total hip repla cements. CT/CT chest abd pel w con* IMPRESSION: 1. Medial LEFT upper lobe pulmonary nodule measures 7 mm. Minimally increased in size since 01/20/2020. Recommend follow-up chest CT in 3 months to confirm con tinued stability. 2. Otherwise no evidence for metastatic disease to the chest, abdomen or pelvi s. 3. Prior cholecystectomy. 4. LEFT hepatic hemangioma. 5. Bilateral stable adrenal adenomas. 6. No adenopathy in the chest, abdomen or pelvis.
[2020-08-14] MEDS: iohexol 300 mg/mL 50 mL Btl PO (13:39)
[2020-08-14] MEDS: iohexol 300 mg/mL 100 mL Btl IV (13:39)
== END 2020-08-14 11:50 | disposition home or self-care (01) ==
PROVIDERS: PCP Internal Medicine; Visit Provider Internal Medicine Medical Oncology
DX: C49.9 Malignant neoplasm of connective and soft tissue, unspecified (principal); D35.02 Benign neoplasm of left adrenal gland; D35.01 Benign neoplasm of right adrenal gland; D18.09 Hemangioma of other sites; Z90.49 Acquired absence of other specified parts of digestive tract; R91.1 Solitary pulmonary nodule
CPT/HCPCS: 71260; 74177

== ENCOUNTER 2020-08-18 10:11 | Outpatient (CLI) | payer OTHER, SELFPAY ==
[2020-08-18 10:46] LABS: Basophils % 0.9 %; Eosinophils # 0.1 10^3/uL (0.0-0.8); Eosinophils % 2.5 %; Hematocrit 38.4 % (37.0-47.0); Hemoglobin 12.3 g/dL (11.5-15.3); Lymphocytes # 1.3 10^3/uL (0.8-4.8); Lymphocytes % 40.4 %; Mean Corpuscular Hemoglobin 29.2 pg (28.0-34.0); Mean Corpuscular Volume 91.2 fL (81-99); Mean Platelet Volume 9.6 fL (7.4-10.4); Monocytes # 0.3 10^3/uL (0.2-0.9); Monocytes % 9.8 %; Neutrophils # 1.46 10^3/uL (1.8-7.7); Neutrophils % 46.1 %; Nucleated Red Blood Cells % 0 %; Platelet Count 281 10^3/cmm (130-400); Red Blood Count 4.21 10^6/uL (4.1-5.3); Red Cell Distribution Width 13.7 % (12.1-15.1); White Blood Count 3.2 10^3/uL (4.0-10.0)
[2020-08-18 11:09] LABS: Alanine Aminotransferase 41 U/L (0-33); Albumin Level 3.9 g/dL (3.5-5.2); Alkaline Phosphatase 109 IU/L (35-105); Anion Gap 11.2 (5-19); Aspartate Amino Transferase 31 U/L (0-32); Blood Urea Nitrogen 15 mg/dL (8-23); Calcium 8.6 mg/dL (8.5-10.5); Carbon Dioxide 26 mmol/L (22-29); Chloride 103 mmol/L (98-107); Globulin 2.7 g/dL (1.3-4.6); Glomerular Filtration Rate 100.6 mL/min (90-130); Glucose 109 mg/dL (65-115); Osmolality Calculated 283 mOsm/kg (285-295); Potassium 4.2 mmol/L (3.5-5.1); Sodium 136 mmol/L (136-145); Total Bilirubin 0.3 mg/dL (0.15-1.2); Total Protein 6.6 g/dL (6.6-8.7)
--- NOTE | 2020-08-29 22:50 | ONC FU_ITS ---
[facility] Patient Note Patient: Dennise Funes Unit #: [id number]: 1955 Dictated By: Juana BanegasDate of Visit: Aug 18, 2020 Onc MED Follow-Up/Prog Note Chief Complaint: Undifferentiated pleomorphic sarcoma. 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 In January 2020 she was admitted to the hospital with shortness of breath and fluid retention, presumably due to diastolic congestive heart failure. At that time she also had swelling in her right leg and a palpable mass in the area of the right knee. MRI of the right knee on 01/23/2020 showed a T2 hyperintense lobulated enhancing mass measuring 3.9 x 2.2 x 2.8 cm, suspicious for neoplasm. She underwent ultrasound directed biopsy of the mass on 01/24/2020. 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 Her CT scans of the chest, abdomen, and pelvis on 01/31/2020 showed no evidence of metastatic disease. She was seen by Dr. Yury Verdugo at [facility] on 02/06/2020, and on 02/14/2020 she underwent wide excision of the mass in the right posterior lateral knee area. 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 The tumor measured 5.0 x 4.1 x 3.0 cm. It was noted to have a mitotic rate of 39/10 hpf. There was estimated 20% tumor necrosis. The resection margins were negative for tumor, but there was tumor noted less than 0.1 cm from the deep margin. She was seen by Dr. Murphy for postoperative radiation. Her treatment initially was delayed for adequate wound healing. She eventually began radiation on 04/08/2020, and she completed treatment on 06/02/2020 to a total dose of 6000 cGy administered in 30 fractions. Her treatment was complicated by methicillin sensitive staph aureus wound infection and cellulitis of the right leg. She otherwise tolerated the treatment well. Ms Funes follows with Dr Maria for continuation of her follow-up care for the sarcoma. Her main complaint at his last visit with her was that she was still having significant pain at the site of the wound infection in the right popliteal area. It had improved somewhat with antibiotic therapy with doxycycline. She also had significant pain from the right knee extending up to the right groin and it wa associated with the [id number] sensation in her right thigh. She had been maintained on a fentanyl patch at 25 mcg/h and she had immediate release oxycodone to take as needed for pain. Ms. Funes is here today for follow-up. She states overall she is doing good. She is back to work as noted on her previous visit. She is taking gabapentin 3 capsules 300 mg 3 times daily for pain. She continues on the fentanyl patch of 25 mcg/h every 72 hours. She also uses oxycodone 5 mg 1 or 2 tablets every 4-6 hours as needed for pain. She indicates this is not controlling her pain as well as it had been. She is pleased with her wound as it is healing well. She states there has been no further drainage and is actually starting to close. She denies any new pain. She states her activity is limited due to the pain. She denies any fever or chills. She said no recent infections. She denies any new shortness of breath orthopnea. She denies any chest pain or palpitations. She does note a new place on her neck that had not been there her last visit. She feels that it is more like a nodule. It is slightly tender at times but has not been red or hot. There has been no drainage or indication that it may drain. She denies any trouble swallowing. She denies any reflux symptoms at present. She denies any nausea or vomiting. Her bowel habits are normal for her. Her ECOG is 1. Past Medical History: Anxiety Degenerative arthritis Depression Diastolic congestive heart failure Gastroesophageal reflux disease Hypertension Metabolic syndrome Sleep apnea Past Surgical History: Appendectomy Hernia repair Partial hysterectomy Tubal ligation Wide excision of mass in the right posterior lateral knee area in 2019 Open reduction for left fifth metatarsal fracture in 2020 Right total hip arthroplasty in 2018 Left total hip arthroplasty in 2017 Allergies: Amoxicillin, Penicillins, and Phenytoin Sodium Extended. Medications: DULoxetine HCl 1 Capsule (of 30 mg) Capsule Delayed Release Particles Oral daily fentaNYL 1 Patch(es) (of 25 mcg/hr) Patch 72 Hr Transdermal q 72 hours PRN Furosemide 1 (40 mg) Tablet Oral daily Gabapentin 3 Capsule (of 300 mg) Oral t.i.d. Klor-Con 10 1 (10 meq) Tablet, controlled release Oral daily Lisinopril 1 (5 mg) Tablet Oral daily Metoprolol Tartrate Tablet Oral oxyCODONE HCl 1 - 2 Tablet (of 5 mg) Oral q 4 to 6 hours PRN Pantoprazole Sodium 1 (20 mg) Tablet, enteric coated Oral b.i.d. Family History: Ms. Funes's mother is : heart attack. Ms. Funes's father is : Prostate Cancer, and heart attack. Ms. Funes has 1 brother who is : colon cancer. Father had prostate cancer but he of heart attack. Mother also of heart attack. A sister had melanoma and with some rare form of lung cancer. A 73-year-old brother was previously treated for colon cancer. Social History: Ms. Funes is single. Ms. Funes quit smoking 6 years ago but had smoked 2.0 packs/day for 35 years. She has no history of drinking. 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 She has a history of smoking 2 packs of cigarettes daily for 35 years. She quit smoking in 2014. She does not drink alcohol. Review Of Symptoms: Vital Signs: Performed on Aug 18, 2020 12:03 Height - 64.00 in Weight - 195.6 lbs (LOW) BSA - 1.94 sq.m BMI - 33.57 (HIGH) Temperature - 98.0 F (LOW) Pulse - 79 /min Respiration - 20 /min BP - 160/77 mm(hg) (HIGH) O2 Sat - 94 % (LOW) Pain - 4,0 - Fully active, able to carry on all predisease activities without restrictions. (ECOG) Physical Examination: Constitutional Alert, oriented, no acute distress. Skin pink, warm and dry. Head Normocephalic; atraumatic. Eyes Conjunctivae and sclerae are clear and without icterus. Pupils are reactive and equal. Neck 1.5 cm nodule noted posteriorly on the neck. Somewhat tender at times, but no erythema, warmth or drainage. She states is been there for about 2 weeks and seems to be getting a little bigger . Hematologic/Lymphatic No petechiae or purpura. No tender or palpable lymph nodes in the cervical or supraclavicular areas. Respiratory Lungs are clear to auscultation without rhonchi or wheezing. Cardiovascular Regular rate and rhythm of heart without murmurs,clicks, gallops or rubs. Chest Chest is symmetric without chest wall deformities. Abdomen Non-tender, non-distended, no masses or ascites. Good bowel sounds noted in all quads. No guarding or rebound tenderness. No pulsatile masses. Back/Spine Non-tender to palpation. Extremities No visible deformities, no cyanosis, clubbing or edema. Musculoskeletal No tenderness or swelling, normal range of motion without obvious weakness. Right lower extremity with moderately red, scabbed area with no exudate at present. Integumentary No rashes or lesions. Neurologic No sensory or motor deficits, normal cerebellar function, normal gait. Psychiatric Alert and oriented times three. Coherent speech. Verbalizes understanding of our discussions today. Laboratory:Test performed on Aug 18, 2020 10:28 Sodium 136 mmol/L Potassium 4.2 mmol/L Chloride 103 mmol/L CO2 26 mmol/L Anion Gap 11.2 BUN 15 mg/dL Creatinine 0.6 mg/dL Cr Clearance (Est) 132.68 mL/min eGFR 100.6 mL/min Glucose 109 mg/dL Osmolality - Calculated 283 mOsm/kg Calcium 8.6 mg/dL Protein, Total 6.6 g/dL Albumin 3.9 g/dL Globulin 2.7 g/dL Bilirubin, Total 0.3 mg/dL ALT (SGPT) 41 U/L AST (SGOT) 31 U/L Alkaline Phosphatase 109 IU/L WBC 3.2 10 3/uL RBC 4.21 10 6/uL HGB 12.3 g/dL HCT 38.4 % MCV 91.2 fL MCH 29.2 pg MCHC 32.0 g/dL RDW 13.7 % Platelet Count 281 10 3/cmm MPV 9.6 fL Neutrophils 1.46 10 3/uL Lymphocytes 1.3 10 3/uL Monocytes 0.3 10 3/uL Eosinophils 0.1 10 3/uL Basophils 0.0 10 3/uL Neutrophil % 46.1 % Lymphocyte % 40.4 % Monocyte % 9.8 % Eosinophil % 2.5 % Basophils % 0.9 % NRBC % 0 % Test performed on May 20, 2020 14:50 Wound Culture DAY 3 G F Impression: 1. 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 2. Hypertension. 3. Metabolic syndrome. 4. History of diastolic congestive heart failure. 5. GERD. 6. Obstructive sleep apnea. 7. Degenerative arthritis. 8. Anxiety/depression. Plan: 1. 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 She underwent wide excision on 02/14/2020. Margins were uninvolved, but there was tumor noted within <0.1 cm of the deep margin. She underwent postoperative radiation, completed on 06/02/2020 to a total dose of 6000 cGy administered over 30 fractions. A. Proceed with observation/expectant management. B. Dr. Maria had requested a CT of the chest with contrast as well as CT abdomen pelvis with contrast. She did have the CT of the chest abdomen pelvis with contrast on August 14, 2020. Reports that the medial left upper lobe pulmonary nodule measured 7 mm which was minimally increased since 01/20/2020. Recommend CT of the chest for follow-up in 3 months. Otherwise there was no evidence for any metastatic disease to the chest, abdomen or pelvis. It is noted that she had left hepatic hemangioma and prior cholecystectomy. Bilateral stable adrenal adenomas. No adenopathy in the chest, abdomen or pelvis. Her CT did report advanced degenerative disc disease at L4-L5 but no destructive osseous lesions. Also noted bilateral total hip replacements. C. Labs from today were reviewed in detail and discussed with Ms. Funes and a copy was given to her. WBC 3.2, hemoglobin 12.3, platelets 281,000, ANC is 1500. Potassium 4.2 glucose 109 creatinine 0.6 her total bilirubin 0.3 ALT was 41 AST is 31 and alk phos is 109, (normal 35-105). 2. She has persistent pain in the right leg, which seems to be multifactorial. At least some component appears to be associated with the staph aureus wound infection, for which she had recently restarted antibiotic therapy with doxycycline. Dr Maria had advised her to attempt a more prolonged course of antibiotic therapy, and had her continue the doxycycline at 100 mg every 12 hours for an additional 15 days, following which she now continues at 100 mg daily. A. She is following with the wound clinic for the nonhealing wound lesion on her leg. 3. She also appears to have a component of neuropathic pain in the right leg. She states it has gotten worse since she has resumed walking so much as she has returned to work A. Continue gabapentin to a max dose of 300 mg up to 3 tablets 3 times daily. B. She will increase the fentanyl patch to 50 mcg/hr every [address] Maria's written prescriptions. C. She will also continue immediate release oxycodone but increase to 10 mg as needed-per Dr Maria's written prescriptions. The dosages will be further adjusted as needed. 4. New Nodule/Mass A. I have requested a CT of the neck/soft tissue with IV contrast. B. She has requested ultrasound-guided IV placement for the dye if necessary. She had multiple IV sticks with her last CTs creating unpleasant experience for her. 5. Degenerative disc disease L4-L5 per CT from 08/15/2019. A. Continue current pain regimen plan as above as this does help her back pain also. B. She was given a form for permanent disability license plates due to the degenerative disc disease and her history of sarcoma in her leg. She has significant pain and has difficulty walking long distances. 6. Follow-up plan A. We will plan for follow-up after we see the results of the CT of the neck for the new nodule/mass that she has identified. B. I anticipate the CT of the neck to be done within the next week. C. Ms. Funes was instructed to contact us in interim should questions or problems arise. Signed By: Juana Banegas-, [facility] Dhruv Maria MD <<Signature on File>>
== END 2020-08-18 10:12 | disposition home or self-care (01) ==
LOC: ONCMED 10:13
PROVIDERS: PCP Internal Medicine; Visit Provider Nurse Practitioner
DX: C49.21 Malignant neoplasm of connective and soft tissue of right lower limb, including hip (principal); F41.9 Anxiety disorder, unspecified; F32.9 Major depressive disorder, single episode, unspecified; K21.9 Gastro-esophageal reflux disease without esophagitis; I10 Essential (primary) hypertension; G47.33 Obstructive sleep apnea (adult) (pediatric); E88.81 Metabolic syndrome and other insulin resistance; Z79.899 Other long term (current) drug therapy
CPT/HCPCS: 36415; 80053; 85025; 99215

== ENCOUNTER 2020-08-21 08:06 | Outpatient (CLI) | payer OTHER, SELFPAY | END 2020-08-21 08:07 | disposition home or self-care (01) | LOC: WOUND 08:07 | PROVIDERS: PCP Internal Medicine; Visit Provider Nurse Practitioner Family | DX: T81.89XA Other complications of procedures, not elsewhere classified, initial encounter (principal) | CPT/HCPCS: 11042 ==

== ENCOUNTER 2020-08-25 15:30 | Outpatient (CLI) | payer OTHER, SELFPAY | END 2020-08-25 15:31 | disposition home or self-care (01) | LOC: WOUND 15:31 | PROVIDERS: PCP Internal Medicine; Visit Provider Nurse Practitioner Family | DX: T81.89XA Other complications of procedures, not elsewhere classified, initial encounter (principal) | CPT/HCPCS: 11042 ==

== ENCOUNTER 2020-09-11 06:00 | Outpatient (RCR) | payer OTHER, SELFPAY | END 2020-09-12 23:59 | disposition home or self-care (01) | LOC: SPT 06:00 | PROVIDERS: PCP Internal Medicine; Referring Provider Radiology Radiation Oncology; Visit Provider Radiology Radiation Oncology | DX: C49.21 Malignant neoplasm of connective and soft tissue of right lower limb, including hip (principal) | CPT/HCPCS: 97140 ==

== ENCOUNTER 2020-09-11 08:04 | Outpatient (CLI) | payer OTHER, SELFPAY | END 2020-09-11 08:05 | disposition home or self-care (01) | LOC: WOUND 08:06 | PROVIDERS: PCP Internal Medicine; Visit Provider Nurse Practitioner Family | DX: T81.89XA Other complications of procedures, not elsewhere classified, initial encounter (principal) | CPT/HCPCS: 11042 ==

== ENCOUNTER 2020-09-13 06:00 | Outpatient (RCR) | payer OTHER, SELFPAY | END 2020-10-13 23:59 | disposition home or self-care (01) | LOC: SPT 06:00 | PROVIDERS: PCP Internal Medicine; Referring Provider Radiology Radiation Oncology; Visit Provider Radiology Radiation Oncology | DX: C49.21 Malignant neoplasm of connective and soft tissue of right lower limb, including hip (principal) | CPT/HCPCS: 97110; 97140 ==

== ENCOUNTER 2020-09-18 08:11 | Outpatient (CLI) | payer OTHER, SELFPAY | END 2020-09-18 08:12 | disposition home or self-care (01) | LOC: WOUND 08:11 | PROVIDERS: PCP Internal Medicine; Visit Provider Nurse Practitioner Family | DX: T81.89XA Other complications of procedures, not elsewhere classified, initial encounter (principal) | CPT/HCPCS: 11042 ==

== ENCOUNTER 2020-09-30 08:11 | Outpatient (CLI) | payer OTHER, SELFPAY | END 2020-09-30 08:12 | disposition home or self-care (01) | PROVIDERS: PCP Internal Medicine; Visit Provider Thoracic Surgery (Cardiothoracic Vascular Surgery) | DX: T81.89XA Other complications of procedures, not elsewhere classified, initial encounter (principal); Y83.8 Other surgical procedures as the cause of abnormal reaction of the patient, or of later complication, without mention of misadventure at the time of the procedure | CPT/HCPCS: 11042 ==

== ENCOUNTER 2020-10-06 09:48 | Outpatient (CLI) | payer OTHER, SELFPAY ==
--- NOTE | 2020-10-06 09:57 | CT_ITS ---
WS: [id number] CT NECK WITH CONTRAST HISTORY: Possible mass on the posterior RIGHT neck. TECHNIQUE: Contiguous 5 mm axial images are performed through the neck with intravenous contrast. Sag ittal and coronal reformats are also submitted. All CT scans at [facility] use at least o ne of these dose optimization techniques: automated exposure control; mA and/or kV adjustment per pat ient size (includes targeted exams where dose is matched to clinical indication); or iterative recons truction. CONTRAST: CONTRAST: Omnipaque 300; 95 mL IV. DLP: 527.1 mGy.cm COMPARISON: 07/07/2014 and 08/14/2020 Nasopharynx, oropharynx, hypopharynx and larynx are unremarkable. No soft tissue masses or abnormal e nhancement. Torus tubarius and fossa of Rosenmuller and parapharyngeal fat are normal. Small bilateral cervical chain lymph nodes. No enlarged lymph nodes or necrotic lymph nodes. No mass is noted along the posterior RIGHT neck of any concern. Patient was unable to palpate the mass prior to the examination. Parotid and submandibular glands are normal. Subcentimeter nodule in the RIGHT thyroid. Cervical spondylitic changes. Visualized portions of the skull base demonstrate no abnormalities. Orbits and globes are within norm al limits. No soft tissue masses. Mucous retention cyst in the LEFT maxillary sinus. Again noted is the lobulated nodule in the medial LEFT upper lobe measuring 8 mm. This nodule has inc reased in size. Follow-up is recommended on a prior CT from 08/14/2020. Anticipate CT follow-up evaluat ion. CT/CT neck w con* [id number] IMPRESSION: 1. No posterior RIGHT neck mass is identified by CT. 2. No adenopathy.
[2020-10-06 10:47] LABS: Blood Urea Nitrogen 18 mg/dL (8-23)
[2020-10-06] MEDS: iohexol 300 mg/mL 100 mL Btl IV (11:50)
== END 2020-10-06 09:49 | disposition home or self-care (01) ==
LOC: RAD 09:50
PROVIDERS: PCP Internal Medicine; Visit Provider Nurse Practitioner
DX: C49.21 Malignant neoplasm of connective and soft tissue of right lower limb, including hip (principal)
CPT/HCPCS: 70491; 82565; 84520

== ENCOUNTER 2020-10-14 06:00 | Outpatient (RCR) | payer OTHER, SELFPAY | END 2020-11-12 23:59 | disposition home or self-care (01) | LOC: SPT 06:00 | PROVIDERS: PCP Internal Medicine; Referring Provider Radiology Radiation Oncology; Visit Provider Radiology Radiation Oncology | DX: C49.21 Malignant neoplasm of connective and soft tissue of right lower limb, including hip (principal) | CPT/HCPCS: 97110; 97140 ==

== ENCOUNTER 2020-10-16 08:10 | Outpatient (CLI) | payer OTHER, SELFPAY | END 2020-10-16 08:11 | disposition home or self-care (01) | LOC: WOUND 08:11 | PROVIDERS: PCP Internal Medicine; Visit Provider Nurse Practitioner Family | DX: T81.89XA Other complications of procedures, not elsewhere classified, initial encounter (principal); Y83.8 Other surgical procedures as the cause of abnormal reaction of the patient, or of later complication, without mention of misadventure at the time of the procedure | CPT/HCPCS: 11042 ==

== ENCOUNTER 2020-10-30 08:12 | Outpatient (CLI) | payer OTHER, SELFPAY | END 2020-10-30 08:13 | disposition home or self-care (01) | LOC: WOUND 08:12 | PROVIDERS: PCP Internal Medicine; Visit Provider Nurse Practitioner Family | DX: T81.89XA Other complications of procedures, not elsewhere classified, initial encounter (principal); Y83.8 Other surgical procedures as the cause of abnormal reaction of the patient, or of later complication, without mention of misadventure at the time of the procedure | CPT/HCPCS: 11042; 88305 ==

== ENCOUNTER 2020-11-06 08:22 | Outpatient (CLI) | payer OTHER, SELFPAY | END 2020-11-06 08:23 | disposition home or self-care (01) | LOC: WOUND 08:23 | PROVIDERS: PCP Internal Medicine; Visit Provider Nurse Practitioner Family | DX: T81.89XA Other complications of procedures, not elsewhere classified, initial encounter (principal); Y83.8 Other surgical procedures as the cause of abnormal reaction of the patient, or of later complication, without mention of misadventure at the time of the procedure | CPT/HCPCS: 11042 ==

== ENCOUNTER 2020-11-13 06:00 | Outpatient (RCR) | payer OTHER, SELFPAY | END 2020-12-13 23:59 | disposition home or self-care (01) | LOC: SPT 06:00 | PROVIDERS: PCP Internal Medicine; Referring Provider Radiology Radiation Oncology; Visit Provider Radiology Radiation Oncology | DX: C49.21 Malignant neoplasm of connective and soft tissue of right lower limb, including hip (principal) | CPT/HCPCS: 97110; 97140 ==

== ENCOUNTER 2020-11-13 08:31 | Outpatient (CLI) | payer OTHER, SELFPAY | END 2020-11-13 08:32 | disposition home or self-care (01) | LOC: WOUND 08:31 | PROVIDERS: PCP Internal Medicine; Visit Provider Nurse Practitioner Family | DX: T81.89XA Other complications of procedures, not elsewhere classified, initial encounter (principal); Y83.8 Other surgical procedures as the cause of abnormal reaction of the patient, or of later complication, without mention of misadventure at the time of the procedure | CPT/HCPCS: 11042 ==

== ENCOUNTER 2020-11-24 08:36 | Outpatient (CLI) | payer OTHER, SELFPAY ==
--- NOTE | 2020-11-24 19:30 | ONC FU_ITS ---
Dr. Maria Patient Follow-Up Note Patient: Dennise Funes Unit #: [id number]: [id number] Dicatated By: Dhruv Maria M.D.Date of Visit:Nov 24, 2020 Onc Med Follow-up/Prog Note Chief Complaint: Undifferentiated pleomorphic sarcoma. 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 In January 2020 she was admitted to the hospital with shortness of breath and fluid retention, presumably due to diastolic congestive heart failure. At that time she also had swelling in her right leg and a palpable mass in the area of the right knee. MRI of the right knee on 01/23/2020 showed a T2 hyperintense lobulated enhancing mass measuring 3.9 x 2.2 x 2.8 cm, suspicious for neoplasm. She underwent ultrasound directed biopsy of the mass on 01/24/2020. 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 Her CT scans of the chest, abdomen, and pelvis on 01/31/2020 showed no evidence of metastatic disease. She was seen by Dr. Yury Verdugo at [facility] on 02/06/2020, and on 02/14/2020 she underwent wide excision of the mass in the right posterior lateral knee area. 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 The tumor measured 5.0 x 4.1 x 3.0 cm. It was noted to have a mitotic rate of 39/10 hpf. There was estimated 20% tumor necrosis. The resection margins were negative for tumor, but there was tumor noted less than 0.1 cm from the deep margin. She was seen by Dr. Murphy for postoperative radiation. Her treatment initially was delayed for adequate wound healing. She eventually began radiation on 04/08/2020, and she completed treatment on 06/02/2020 to a total dose of 6000 cGy administered in 30 fractions. Her treatment was complicated by methicillin sensitive staph aureus wound infection and cellulitis of the right leg. She otherwise tolerated the treatment well. I had seen her initially on 07/03/2020 to assist with her surveillance care. At that point she was having significant pain in her right leg, for which she was prescribed a fentanyl patch and immediate release oxycodone. I also had her start gabapentin, as the pain appears to be neuropathic in origin. Her surveillance CT scans on 08/14/2020 showed a medial left upper lobe pulmonary nodule measuring 7 mm, minimally increased compared to previous study from January 2020. There was otherwise no evidence for metastatic disease in the chest, abdomen, or pelvis. She continued expectant management. Her other medical illnesses include hypertension, metabolic syndrome, diastolic congestive heart failure, GERD, obstructive sleep apnea, degenerative arthritis, and anxiety/depression. She has a history of smoking 2 packs of cigarettes a day for 35 years, but she quit smoking in 2014. She is seen for a follow-up visit. Her main complaint is that she continues to have pretty severe pain in her right leg. She says it feels like 1000 needles are sticking her. It does limit her activity, but she is still able to work 3 12-hour shifts per week. Her ECOG score is 1. Her appetite is not good, and she has been losing weight, now over 20 pounds. A few weeks ago she had an acute illness with fever, vomiting, and diarrhea. It lasted 2 or 3 days and then resolved. She otherwise has not had fever. She does have episodes of chills and sweating, both during the daytime and at night. She has no shortness of breath, cough, or chest pain. She has no other GI or complaints. Her bowel function remains adequate with a stool softener. She does not complain of headache or dizziness. In addition to the pain, she does have numbness/tingling in her right leg. Medications: DULoxetine HCl 1 Capsule (of 30 mg) Capsule Delayed Release Particles Oral daily, fentaNYL 1 Patch(es) (of 25 mcg/hr) Patch 72 Hr Transdermal q 72 hours PRN, Furosemide 1 (40 mg) Tablet Oral daily, Gabapentin 3 Capsule (of 300 mg) Oral t.i.d., Klor-Con 10 1 (10 meq) Tablet, controlled release Oral daily, Lisinopril 1 (5 mg) Tablet Oral daily, Metoprolol Tartrate Tablet Oral, oxyCODONE HCl 1 - 2 Tablet (of 5 mg) Oral q 4 to 6 hours PRN, Pantoprazole Sodium 1 (20 mg) Tablet, enteric coated Oral b.i.d. Allergies: Amoxicillin, Penicillins, and Phenytoin Sodium Extended. Vital Signs: Performed on Nov 24, 2020 08:57 Height - 64.00 in Weight - 182.6 lbs (LOW) BSA - 1.88 sq.m BMI - 31.34 (HIGH) Temperature - 97.3 F (LOW) Pulse - 78 /min Respiration - 18 /min BP - 157/79 mm(hg) (HIGH) O2 Sat - 94 % (LOW) Pain - 5 Fatigue - 6 Physical Examination: Constitutional - She looks pretty good generally, Eyes - Sclerae nonicteric. Conjunctivae clear, ENMT - No lesions noted in the oral cavity, Hematologic/Lymphatic - No cervical, clavicular, or axillary adenopathy, Respiratory - Lungs sound clear with some decrease in air movement bilaterally, Cardiovascular - Heart rhythm is regular. There is no murmur, gallop, or rub noted, Abdomen - Soft. Liver and spleen are not enlarged. There is no abdominal mass or ascites noted and there is no inguinal adenopathy, Extremities - There is mild swelling of the right leg. The wound in the area of the right popliteal fossa appears to be healing well, Neurologic - No focal neurologic deficits noted. Problem List: 1. 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 2. Hypertension. 3. Metabolic syndrome. 4. History of diastolic congestive heart failure. 5. GERD. 6. Obstructive sleep apnea. 7. Degenerative arthritis. 8. Anxiety/depression. Problems Addressed with this Encounter and Plan: 1. 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 She underwent wide excision on 02/14/2020. Margins were uninvolved, but there was tumor noted within <0.1 cm of the deep margin. She underwent postoperative radiation, completed on 06/02/2020 to a total dose of 6000 cGy administered over 30 fractions. Her management was complicated by a staph aureus wound infection, for which she has been receiving treatment at wound care. It now appears to be healing well. Thus far there has been no evidence of recurrence of the sarcoma. She will be scheduled for follow-up visit with surveillance CT scans in 1 month. 2. She has persistent pain in the right leg. Has a very significant neuropathic component. It is not being managed adequately with her current medications. As such, I will have her increase the fentanyl to 50 mcg/h. She will continue the immediate release oxycodone at 20 mg as needed. Her gabapentin will be increased to 600 mg 3 times daily, and I also will have her increase her duloxetine dosage to 60 mg daily. In addition, I will now arrange for referral to pain clinic. Signed By: Dhruv Maria M.D. <<Signature on File>>
== END 2020-11-24 08:37 | disposition home or self-care (01) ==
LOC: ONCMED 08:37
PROVIDERS: PCP Internal Medicine; Visit Provider Internal Medicine Medical Oncology
DX: Z08 Encounter for follow-up examination after completed treatment for malignant neoplasm (principal); Z85.831 Personal history of malignant neoplasm of soft tissue; Z92.3 Personal history of irradiation; M79.604 Pain in right leg; Z79.899 Other long term (current) drug therapy
CPT/HCPCS: 99214

== ENCOUNTER 2020-12-11 08:33 | Outpatient (CLI) | payer OTHER, SELFPAY | END 2020-12-11 08:34 | disposition home or self-care (01) | LOC: WOUND 08:35 | PROVIDERS: PCP Internal Medicine; Visit Provider Nurse Practitioner Family | DX: S80.211A Abrasion, right knee, initial encounter (principal); X58.XXXA Exposure to other specified factors, initial encounter | CPT/HCPCS: G0463 ==

== ENCOUNTER 2020-12-14 06:00 | Outpatient (RCR) | payer OTHER, SELFPAY | END 2021-01-13 23:59 | disposition home or self-care (01) | LOC: SPT 06:00 | PROVIDERS: PCP Internal Medicine; Referring Provider Radiology Radiation Oncology; Visit Provider Radiology Radiation Oncology | DX: C49.21 Malignant neoplasm of connective and soft tissue of right lower limb, including hip (principal) | CPT/HCPCS: 97110; 97140 ==

== ENCOUNTER 2020-12-22 11:43 | Outpatient (CLI) | payer OTHER, SELFPAY ==
--- NOTE | 2020-12-22 11:49 | CT_ITS ---
WS: [id number] CT CHEST, ABDOMEN, AND PELVIS TECHNIQUE: Contrast-enhanced CT of the chest, abdomen, and pelvis with coronal and sagittal reformatt ed images. CLINICAL INFORMATION: SARCOMA COMPARISON: CT 08/14/2020 and 01/31/2020 DLP: 1398.[address] scans at [facility] use at least one of these dose optimization techniques: automat ed exposure control; mA and/or kV adjustment per patient size (includes targeted exams where dose is matched to clinical indication); or iterative reconstruction. CT CHEST: Mild chronic emphysematous changes. Numerous scattered bilateral hazy groundglass opacities have deve loped since August 14, 2020. Scattered hazy groundglass opacities are suspicious for metastatic diseas e. Recommend correlation for pneumonia including COVID 19 pneumonia. A few prominent left axillary ly mph nodes increased in size from previous largest measuring 10 mm No mediastinal or hilar lymphadenopathy. Normal caliber thoracic aorta. No axillary lymphadenopathy. CT ABDOMEN AND PELVIS: Diffuse fatty infiltration of the liver. Stable 14 mm hemangioma left hepatic lobe. Portal vein and s plenic vein are normal. Cholecystectomy clips. Normal spleen. Small esophageal hiatal hernia. Bilater al adrenal nodules are stable the largest on the right measuring 2.4 x 3.3 CM. Fatty atrophy of the p ancreas. Normal spleen. Aortic calcification. Dense distal aortic calcification with high-grade steno sis distally. This is unchanged in appearance. Normal renal parenchymal enhancement. Numerous left renal cysts are stable. Bilateral THAs degrade i mages in the pelvis. Normal sigmoid colon. No evidence of high-grade small or large bowel obstruction . Prior ventral abdominal wall hernia repair. No adenopathy in the abdomen or pelvis. No inguinal lym phadenopathy. Degenerative disc disease L4-5. CT/CT chest abd pel w con* IMPRESSION: 1. Interval development of numerous scattered bilateral hazy groundglass opaci ties throughout both lungs suspicious for metastatic disease considering clinic al history. Recommend pneumonia including Covid 19 pneumonia also be excluded. 2. Previously described 7 mm nodule in the left upper lobe medially has enlarg ed today measuring 10 mm suspicious for metastatic disease. This is similar in appearance to the numerous new additional opacities. 3. Prominent left axillary lymph nodes the largest measuring 10 mm new from pr evious. 4. No mediastinal or hilar lymphadenopathy. 5. Diffuse fatty infiltration of the liver. 6. Stable hemangioma left hepatic lobe measuring 14 mm. 7. Stable bilateral adrenal nodules. 8. Small esophageal hiatal hernia. 9. No evidence of metastatic disease in the abdomen or pelvis.
[2020-12-22 13:03] LABS: Blood Urea Nitrogen 10 mg/dL (8-23); Glomerular Filtration Rate 124.2 mL/min (90-130)
[2020-12-22] MEDS: iohexol 300 mg/mL 100 mL Btl IV (14:28)
== END 2020-12-22 11:44 | disposition home or self-care (01) ==
PROVIDERS: PCP Internal Medicine; Visit Provider Internal Medicine Medical Oncology
DX: C49.21 Malignant neoplasm of connective and soft tissue of right lower limb, including hip (principal); K44.9 Diaphragmatic hernia without obstruction or gangrene; K76.0 Fatty (change of) liver, not elsewhere classified
CPT/HCPCS: 36415; 71260; 74177; 82565; 84520

== ENCOUNTER → 2020-12-24 11:19 | Outpatient (BNVA) | payer OTHER, SELFPAY | PROVIDERS: PCP Internal Medicine; Visit Provider Family Medicine | DX: Z20.822 Contact with and (suspected) exposure to COVID-19 (principal) | CPT/HCPCS: 87635 ==

== ENCOUNTER 2020-12-27 08:23 | Outpatient (CLI) | payer OTHER, SELFPAY ==
[2020-12-27 08:30] VITALS: BP 150/77; PULSE 70; RESP 18; TEMP 36.8; O2SAT 94; BMI 29.2
[2020-12-27 09:30] VITALS: BP 164/85; PULSE 72; RESP 18; TEMP 36.8; O2SAT 98
[2020-12-27 10:28] VITALS: BP 160/85; PULSE 71; RESP 18; TEMP 36.6; O2SAT 98
== END 2020-12-27 08:24 | disposition home or self-care (01) ==
LOC: OPS 08:25
PROVIDERS: PCP Internal Medicine; Visit Provider Nurse Practitioner Family
DX: U07.1 COVID-19 (principal)
CPT/HCPCS: 96365

== ENCOUNTER → 2021-02-26 11:32 | Outpatient (BNVA) | payer OTHER, SELFPAY | PROVIDERS: PCP Internal Medicine; Visit Provider Internal Medicine Pulmonary Disease | DX: B94.8 Sequelae of other specified infectious and parasitic diseases (principal); Z20.822 Contact with and (suspected) exposure to COVID-19 | CPT/HCPCS: 87635 ==

== ENCOUNTER → 2021-03-03 09:37 | Outpatient (BNVA) | payer OTHER, SELFPAY | PROVIDERS: PCP Internal Medicine; Visit Provider Anesthesiology | DX: Z02.89 Encounter for other administrative examinations (principal); G89.29 Other chronic pain; C49.21 Malignant neoplasm of connective and soft tissue of right lower limb, including hip; L58.9 Radiodermatitis, unspecified; F11.90 Opioid use, unspecified, uncomplicated; Z85.828 Personal history of other malignant neoplasm of skin; Z87.891 Personal history of nicotine dependence | CPT/HCPCS: 99204 ==

== ENCOUNTER 2021-03-04 07:10 | Outpatient (CLI) | payer OTHER, SELFPAY ==
--- NOTE | 2021-03-04 10:43 | PFTS_ITS ---
Date of Study:03/04/21 Date of Dictation: MECHANICS: Forced vital capacity (FVC) is normal. Forced expiratory volume in one second (FEV1) is normal. FEV1/FVC is normal. FLOW VOLUME LOOP: The peak expiratory flow volume loop is absent for the postbronchodilator spirometry. There is signs of hesitation. LUNG VOLUMES: Total lung capacity (TLC) is normal. Residual volume (RV) is increased. DIFFUSING CAPACITY FOR CARBON MONOXIDE: Normal. INTERPRETATION: The prebronchodilator spirometry is consistent with moderate airflow obstruction. The postbronchodilator spirometry is normal. There is a significant postbronchodilator response. Lung volumes are consistent with air trapping. Gas exchange (DLCO) is normal. The pulmonary function test is suggestive of reversible airflow obstruction such as asthma. MTDD
== END 2021-03-04 07:11 | disposition home or self-care (01) ==
LOC: RT 07:13
PROVIDERS: PCP Internal Medicine; Visit Provider Internal Medicine Pulmonary Disease
DX: R06.00 Dyspnea, unspecified (principal)
CPT/HCPCS: 94060; 94618; 94726; 94729; J7611

== ENCOUNTER → 2021-03-12 08:06 | Outpatient (BNVA) | payer OTHER, SELFPAY | PROVIDERS: PCP Internal Medicine; Visit Provider Anesthesiology | DX: G89.29 Other chronic pain (principal); M25.561 Pain in right knee | CPT/HCPCS: 20610; 77002; J1030; J3490 ==

== ENCOUNTER 2021-03-12 15:05 | Outpatient (CLI) | payer OTHER, SELFPAY ==
--- NOTE | 2021-03-15 11:32 | ONC FU_ITS ---
Dr. Maria Patient Follow-Up Note Patient: Dennise Funes Unit #: [id number]: [id number] Dicatated By: Dhruv Maria M.D.Date of Visit:Mar 12, 2021 Onc Med Follow-up/Prog Note Chief Complaint: Undifferentiated pleomorphic sarcoma. 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 In January 2020 she was admitted to the hospital with shortness of breath and fluid retention, presumably due to diastolic congestive heart failure. At that time she also had swelling in her right leg and a palpable mass in the area of the right knee. MRI of the right knee on 01/23/2020 showed a T2 hyperintense lobulated enhancing mass measuring 3.9 x 2.2 x 2.8 cm, suspicious for neoplasm. She underwent ultrasound directed biopsy of the mass on 01/24/2020. 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 Her CT scans of the chest, abdomen, and pelvis on 01/31/2020 showed no evidence of metastatic disease. She was seen by Dr. Yury Verdugo at [facility] on 02/06/2020, and on 02/14/2020 she underwent wide excision of the mass in the right posterior lateral knee area. 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 The tumor measured 5.0 x 4.1 x 3.0 cm. It was noted to have a mitotic rate of 39/10 hpf. There was estimated 20% tumor necrosis. The resection margins were negative for tumor, but there was tumor noted less than 0.1 cm from the deep margin. She was seen by Dr. Murphy for postoperative radiation. Her treatment initially was delayed for adequate wound healing. She eventually began radiation on 04/08/2020, and she completed treatment on 06/02/2020 to a total dose of 6000 cGy administered in 30 fractions. Her treatment was complicated by methicillin sensitive staph aureus wound infection and cellulitis of the right leg. She otherwise tolerated the treatment well. I had seen her initially on 07/03/2020 to assist with her surveillance care. At that point she was having significant pain in her right leg, for which she was prescribed a fentanyl patch and immediate release oxycodone. I also had her start gabapentin, as the pain appears to be neuropathic in origin. Her surveillance CT scans on 08/14/2020 showed a medial left upper lobe pulmonary nodule measuring 7 mm, minimally increased compared to previous study from January 2020. There was otherwise no evidence for metastatic disease in the chest, abdomen, or pelvis. She continued expectant management. Her other medical illnesses include hypertension, metabolic syndrome, diastolic congestive heart failure, GERD, obstructive sleep apnea, degenerative arthritis, and anxiety/depression. She has a history of smoking 2 packs of cigarettes a day for 35 years, but she quit smoking in 2014. She is seen today for an unplanned visit. As have her follow-up visit in November 2020 there have been no evidence of recurrence of the sarcoma, but she was having more pain in the right leg, and I had made arrangements for her to be seen in pain clinic. She had been there earlier today and she was given an injection in the right knee, but we are also notified that her leg was red and warm, so I did have her come in for a visit. At the present time she is having significant pain in her right leg despite having a fentanyl patch at 75 mcg/h and taking immediate release oxycodone 20 mg as needed. The pain is severe enough that it is limiting her activity and significantly affecting her quality of life. She is having no adverse effects from the medications. She has been off antibiotic therapy. Medications: DULoxetine HCl 1 Capsule (of 30 mg) Capsule Delayed Release Particles Oral daily, fentaNYL 1 Patch(es) (of 25 mcg/hr) Patch 72 Hr Transdermal q 72 hours PRN, Furosemide 1 (40 mg) Tablet Oral daily, Gabapentin 3 Capsule (of 300 mg) Oral t.i.d., Klor-Con 10 1 (10 meq) Tablet, controlled release Oral daily, Lisinopril 1 (5 mg) Tablet Oral daily, Metoprolol Tartrate Tablet Oral, oxyCODONE HCl 1 - 2 Tablet (of 5 mg) Oral q 4 to 6 hours PRN, Pantoprazole Sodium 1 (20 mg) Tablet, enteric coated Oral b.i.d. Allergies: Amoxicillin, Penicillins, and Phenytoin Sodium Extended. Vital Signs: Performed on Mar 12, 2021 15:14 Height - 64.00 in Weight - 179 lbs (LOW) BSA - 1.87 sq.m BMI - 30.73 (HIGH) Temperature - 96.9 F (LOW) Pulse - 89 /min Respiration - 20 /min BP - 185/98 mm(hg) (HIGH) O2 Sat - 98 % Pain - 6 Fatigue - 5 Physical Examination: Constitutional - She does appear to be in significant discomfort, but she otherwise does not appear acutely ill, Extremities - There is swelling of the right leg and there is significant induration in the distal thigh extending down into the calf. The right calf circumference measures 37 cm compared to 35 cm on the right. There is mild erythema in the area is warm to touch. There is no ulceration or drainage. Problem List: 1. 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 2. Hypertension. 3. Metabolic syndrome. 4. History of diastolic congestive heart failure. 5. GERD. 6. Obstructive sleep apnea. 7. Degenerative arthritis. 8. Anxiety/depression. 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 She underwent wide excision on 02/14/2020. Margins were uninvolved, but there was tumor noted within <0.1 cm of the deep margin. She underwent postoperative radiation, completed on 06/02/2020 to a total dose of 6000 cGy administered over 30 fractions. Her management was complicated by a staph aureus wound infection, was treated at wound care. As of her follow-up visit in November 2020 it appeared to have healed adequately, but she was still having significant pain in her right leg, severe enough that she did require opiate pain medication. At that point I did arrange for referral to pain clinic. She comes in now with increased pain and swelling in her right leg. There is also increased erythema, and it is warm to touch. With those findings, she will restart antibiotic therapy with doxycycline. I will increase her fentanyl patch to 100 mcg/h, and the immediate release oxycodone dosage will be increased to 30 mg. She will be scheduled for an MRI of the right leg. She will have further evaluation as indicated. Signed By: Dhruv Maria M.D. <<Signature on File>>
== END 2021-03-12 15:06 | disposition home or self-care (01) ==
PROVIDERS: PCP Internal Medicine; Visit Provider Internal Medicine Medical Oncology
DX: C76.51 Malignant neoplasm of right lower limb (principal); I10 Essential (primary) hypertension; K21.9 Gastro-esophageal reflux disease without esophagitis; F41.9 Anxiety disorder, unspecified; F32.A Depression, unspecified; I50.30 Unspecified diastolic (congestive) heart failure; E88.81 Metabolic syndrome and other insulin resistance; M79.661 Pain in right lower leg; M79.89 Other specified soft tissue disorders; Z79.891 Long term (current) use of opiate analgesic
CPT/HCPCS: 99214

== ENCOUNTER → 2021-03-31 09:26 | Outpatient (BNVA) | payer OTHER, SELFPAY | PROVIDERS: PCP Internal Medicine; Visit Provider Anesthesiology | DX: G89.29 Other chronic pain (principal); M25.561 Pain in right knee; L58.9 Radiodermatitis, unspecified; F11.90 Opioid use, unspecified, uncomplicated | CPT/HCPCS: 99213 ==

== ENCOUNTER 2021-04-08 08:04 | Outpatient (CLI) | payer OTHER, SELFPAY ==
--- NOTE | 2021-04-08 09:30 | CT_ITS ---
WS: [id number] CT CHEST, ABDOMEN, AND PELVIS TECHNIQUE: Contrast-enhanced CT of the chest, abdomen, and pelvis with coronal and sagittal reformatt ed images. CLINICAL INFORMATION: survellliance scan for possible metastatic sarcoma COMPARISON: CT chest abdomen pelvis December 2020 and August 2020 DLP: 2362.[address] scans at [facility] use at least one of these dose optimization techniques: automated e xposure control; mA and/or kV adjustment per patient size (includes targeted exams where dose is matc hed to clinical indication); or iterative reconstruction. CT CHEST: The majority of the previously described hazy groundglass opacities have resolved in the interim. Res idual groundglass opacity/atelectasis in the left upper lobe anteriorly. Residual indeterminant semis olid opacity in the left upper lobe anteriorly adjacent to the mediastinum measuring 11 mm is unchang ed. This is indeterminate and metastatic disease not excluded. Normal caliber thoracic aorta. Aortic calcification. No mediastinal or hilar lymphadenopathy. Small l eft thyroid nodule measuring 6 mm. No axillary lymphadenopathy. Small esophageal hiatal hernia. CT ABDOMEN AND PELVIS: Hepatomegaly. Diffuse fatty infiltration of the liver. Stable 15 mm hemangioma left hepatic lobe. Cho lecystectomy clips. Normal portal vein and splenic vein. Normal pancreatic parenchymal enhancement. N ormal caliber abdominal aorta. Dense aortic calcification. Normal renal parenchymal enhancement. No h ydronephrosis. Small bilateral renal cysts. Bilateral THAs degrade images in the pelvis. Tiny fat-con taining ventral hernia. Visualized sigmoid colon appears normal. Prior ventral abdominal wall hernia repair. Disc space narrowing L5-S1 with endplate sclerotic changes. CT/CT chest abd pel w con* IMPRESSION: 1. Residual 11 mm opacity in the left upper lobe anteriorly adjacent to the me diastinum is unchanged from previous. This is indeterminate and metastatic dise ase not excluded. This can be further evaluated with PET/CT or [address] follow-up. 2. Small amount of residual hazy groundglass infiltrate/atelectasis in the lef t upper lobe anteriorly. Remainder of infiltrates have resolved. 3. No mediastinal or hilar lymphadenopathy. 4. Stable bilateral adrenal nodules. 5. Stable 15 mm hemangioma left hepatic lobe. 6. Otherwise no evidence of metastatic disease in abdomen or pelvis.
[2021-04-08 09:49] LABS: Blood Urea Nitrogen 9 mg/dL (8-23); Glomerular Filtration Rate 84.2 mL/min (90-130)
[2021-04-08] MEDS: iohexol 300 mg/mL 100 mL Btl IV (10:40)
[2021-04-08] MEDS: iohexol 300 mg/mL 50 mL Btl PO (10:41)
== END 2021-04-08 08:05 | disposition home or self-care (01) ==
PROVIDERS: PCP Internal Medicine; Visit Provider Internal Medicine Pulmonary Disease
DX: R91.1 Solitary pulmonary nodule (principal); B94.8 Sequelae of other specified infectious and parasitic diseases; C49.21 Malignant neoplasm of connective and soft tissue of right lower limb, including hip; D18.09 Hemangioma of other sites
CPT/HCPCS: 71260; 74177; 82565; 84520; Q9967

== ENCOUNTER 2021-04-15 16:20 | Outpatient (CLI) | payer OTHER, SELFPAY ==
--- NOTE | 2021-04-18 12:23 | ONC FU_ITS ---
Dr. Maria Patient Follow-Up Note Patient: Dennise Funes Unit #: [id number]: [id number] Dicatated By: Dhruv Maria M.D.Date of Visit:Apr 15, 2021 Onc Med Follow-up/Prog Note Chief Complaint: Undifferentiated pleomorphic sarcoma. 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 In January 2020 she was admitted to the hospital with shortness of breath and fluid retention, presumably due to diastolic congestive heart failure. At that time she also had swelling in her right leg and a palpable mass in the area of the right knee. MRI of the right knee on 01/23/2020 showed a T2 hyperintense lobulated enhancing mass measuring 3.9 x 2.2 x 2.8 cm, suspicious for neoplasm. She underwent ultrasound directed biopsy of the mass on 01/24/2020. 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 Her CT scans of the chest, abdomen, and pelvis on 01/31/2020 showed no evidence of metastatic disease. She was seen by Dr. Yury Verdugo at [facility] on 02/06/2020, and on 02/14/2020 she underwent wide excision of the mass in the right posterior lateral knee area. 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 The tumor measured 5.0 x 4.1 x 3.0 cm. It was noted to have a mitotic rate of 39/10 hpf. There was estimated 20% tumor necrosis. The resection margins were negative for tumor, but there was tumor noted less than 0.1 cm from the deep margin. She was seen by Dr. Murphy for postoperative radiation. Her treatment initially was delayed for adequate wound healing. She eventually began radiation on 04/08/2020, and she completed treatment on 06/02/2020 to a total dose of 6000 cGy administered in 30 fractions. Her treatment was complicated by methicillin sensitive staph aureus wound infection and cellulitis of the right leg. She otherwise tolerated the treatment well. I had seen her initially on 07/03/2020 to assist with her surveillance care. At that point she was having significant pain in her right leg, for which she was prescribed a fentanyl patch and immediate release oxycodone. I also had her start gabapentin, as the pain appears to be neuropathic in origin. Her surveillance CT scans on 08/14/2020 showed a medial left upper lobe pulmonary nodule measuring 7 mm, minimally increased compared to previous study from January 2020. There was otherwise no evidence for metastatic disease in the chest, abdomen, or pelvis. She continued expectant management. Her other medical illnesses include hypertension, metabolic syndrome, diastolic congestive heart failure, GERD, obstructive sleep apnea, degenerative arthritis, and anxiety/depression. She has a history of smoking 2 packs of cigarettes a day for 35 years, but she quit smoking in 2014. INTERIM HISTORY: On 03/12/2021 she had been seen with complaints of increased pain and swelling in her right leg. There was associated erythema in the involved area also felt warm to touch. She restarted empiric antibiotic coverage with doxycycline. She required an increase in her opiate pain medication. She was scheduled for further evaluation with MRI. The study was not able to be completed, as she was not able to hold her leg still for a long enough time period, even with sedation. She is seen for a follow-up visit. She is still having severe pain in her right leg. She says it was better for a little while with the increase in her pain medication, but during subsequent follow-up the fentanyl dosage had to be decreased because she was getting too sleepy. She is starting back on it today at a lower dosage. She has still been working, but with difficulty. She complains that she is real tired. Her ECOG score is 1. She says she has hardly has any appetite. Her weight is stable. She does not have fever, she does have some sweating. She has soreness in her lips and she has had a lot of sore throat. She does not complain of cough. She has shortness of breath, and she is starting on a Symbicort inhaler. She has not been having chest pain. She sometimes has nausea. Bowel and bladder function remain adequate. She sometimes has headache and she does complain of having dizziness. She has numbness in her right leg. Medications: DULoxetine HCl 1 Capsule (of 30 mg) Capsule Delayed Release Particles Oral daily, fentaNYL 1 Patch(es) (of 50 mcg/hr) Patch 72 Hr Transdermal q 72 hours PRN, Furosemide 1 (40 mg) Tablet Oral daily, Gabapentin 3 Capsule (of 300 mg) Oral t.i.d., Klor-Con 10 1 (10 meq) Tablet, controlled release Oral daily, Lisinopril 1 (5 mg) Tablet Oral daily, Metoprolol Tartrate Tablet Oral, oxyCODONE HCl 1 - 2 Tablet (of 5 mg) Oral q 4 to 6 hours PRN, Pantoprazole Sodium 1 (20 mg) Tablet, enteric coated Oral b.i.d. Allergies: Amoxicillin, Penicillins, and Phenytoin Sodium Extended. Vital Signs: Performed on Apr 15, 2021 16:39 Height - 64.00 in Weight - 179.4 lbs (HIGH) BSA - 1.87 sq.m BMI - 30.79 (HIGH) Temperature - 97.2 F (LOW) Pulse - 87 /min Respiration - 18 /min BP - 175/85 mm(hg) (HIGH) O2 Sat - 97 % Pain - 5 Fatigue - 7 Physical Examination: Constitutional - She does appear to be in significant discomfort, but she otherwise does not appear acutely ill, Eyes - Sclerae nonicteric. There is a scleral hemorrhage on the left. Conjunctivae appear clear, ENMT - No lesions noted in the oral cavity, Hematologic/Lymphatic - No cervical, clavicular, or axillary adenopathy, Respiratory - Lungs sound clear with some decrease in air movement bilaterally, Cardiovascular - Heart rhythm is regular. There is no murmur, gallop, or rub noted, Abdomen - Soft. Liver and spleen are not enlarged. There is no abdominal mass or ascites noted and there is no inguinal adenopathy, Extremities - As before there is significant induration in the distal thigh extending down into the calf. It is very sensitive to touch, particularly in the popliteal fossa area. There is some chronic discoloration, but it does not appear unusually red or warm, Neurologic - No focal neurologic deficits noted. Problem List: 1. 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 2. Hypertension. 3. Metabolic syndrome. 4. History of diastolic congestive heart failure. 5. GERD. 6. Obstructive sleep apnea. 7. Degenerative arthritis. 8. Anxiety/depression. 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 She underwent wide excision on 02/14/2020. Margins were uninvolved, but there was tumor noted within <0.1 cm of the deep margin. She underwent postoperative radiation, completed on 06/02/2020 to a total dose of 6000 cGy administered over 30 fractions. Her management was complicated by a staph aureus wound infection, was treated at wound care. As of her follow-up visit in November 2020 it appeared to have healed adequately, but she was still having significant pain in her right leg, severe enough that she did require opiate pain medication. At that point I did arrange for referral to pain clinic. During the past several months she has had significant worsening of pain in the right leg. The involved area is markedly indurated and it is very sensitive to touch. I suspect that this is mostly due to long-term effects of the radiation, though recurrent infection and/or recurrence of sarcoma is not excluded. She has not had repeat imaging because she was not able to hold her leg still long enough to complete an MRI. Her pain management has been complicated due to some opiate related side effects, mainly sedation. At least for now she will continue the fentanyl at the reduced dosage of 50 mcg/h and she will continue immediate release oxycodone up to 4 times daily. I will have her start prednisone 10 mg daily. I will discuss options for further imaging with the radiologist. Signed By: Dhruv Maria M.D. <<Signature on File>>
== END 2021-04-15 16:21 | disposition home or self-care (01) ==
LOC: ONCMED 16:23
PROVIDERS: PCP Internal Medicine; Visit Provider Internal Medicine Medical Oncology
DX: C49.21 Malignant neoplasm of connective and soft tissue of right lower limb, including hip (principal); I10 Essential (primary) hypertension; E88.81 Metabolic syndrome and other insulin resistance; I50.30 Unspecified diastolic (congestive) heart failure; K21.9 Gastro-esophageal reflux disease without esophagitis; G47.33 Obstructive sleep apnea (adult) (pediatric); M19.90 Unspecified osteoarthritis, unspecified site; F41.9 Anxiety disorder, unspecified; F32.9 Major depressive disorder, single episode, unspecified; Z79.52 Long term (current) use of systemic steroids; Z79.891 Long term (current) use of opiate analgesic; Z79.899 Other long term (current) drug therapy; Z92.3 Personal history of irradiation
CPT/HCPCS: 99214

== ENCOUNTER 2021-06-15 09:02 | Outpatient (CLI) | payer MEDICARE, SELFPAY ==
--- NOTE | 2021-06-16 07:24 | ONC FU_ITS ---
Dr. Maria Patient Follow-Up Note Patient: Dennise Funes Unit #: [id number]: 1955 Dicatated By: Dhruv Maria M.D.Date of Visit:Jun 15, 2021 Onc Med Follow-up/Prog Note Chief Complaint: Undifferentiated pleomorphic sarcoma. 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 In January 2020 she was admitted to the hospital with shortness of breath and fluid retention, presumably due to diastolic congestive heart failure. At that time she also had swelling in her right leg and a palpable mass in the area of the right knee. MRI of the right knee on 01/23/2020 showed a T2 hyperintense lobulated enhancing mass measuring 3.9 x 2.2 x 2.8 cm, suspicious for neoplasm. She underwent ultrasound directed biopsy of the mass on 01/24/2020. 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 Her CT scans of the chest, abdomen, and pelvis on 01/31/2020 showed no evidence of metastatic disease. She was seen by Dr. Yury Verdugo at [facility] on 02/06/2020, and on 02/14/2020 she underwent wide excision of the mass in the right posterior lateral knee area. 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 The tumor measured 5.0 x 4.1 x 3.0 cm. It was noted to have a mitotic rate of 39/10 hpf. There was estimated 20% tumor necrosis. The resection margins were negative for tumor, but there was tumor noted less than 0.1 cm from the deep margin. She was seen by Dr. Murphy for postoperative radiation. Her treatment initially was delayed for adequate wound healing. She eventually began radiation on 04/08/2020, and she completed treatment on 06/02/2020 to a total dose of 6000 cGy administered in 30 fractions. Her treatment was complicated by methicillin sensitive staph aureus wound infection and cellulitis of the right leg. She otherwise tolerated the treatment well. I had seen her initially on 07/03/2020 to assist with her surveillance care. At that point she was having significant pain in her right leg, for which she was prescribed a fentanyl patch and immediate release oxycodone. I also had her start gabapentin, as the pain appears to be neuropathic in origin. Her surveillance CT scans on 08/14/2020 showed a medial left upper lobe pulmonary nodule measuring 7 mm, minimally increased compared to previous study from January 2020. There was otherwise no evidence for metastatic disease in the chest, abdomen, or pelvis. She continued expectant management. Her other medical illnesses include hypertension, metabolic syndrome, diastolic congestive heart failure, GERD, obstructive sleep apnea, degenerative arthritis, and anxiety/depression. She has a history of smoking 2 packs of cigarettes a day for 35 years, but she quit smoking in 2014. INTERIM HISTORY: On 03/12/2021 she had been seen with complaints of increased pain and swelling in her right leg. There was associated erythema in the involved area also felt warm to touch. She restarted empiric antibiotic coverage with doxycycline. She required an increase in her opiate pain medication. She was scheduled for further evaluation with MRI. Thus far we have not been able to complete the study even after several attempts, as she has been unable to hold her leg still for a long enough time period, even with sedation. She is seen for a follow-up visit. She continues to have severe pain in the right leg, centered in the popliteal area and upper calf. Due to the severity of the pain, it is being managed with opiate pain medication. She was taken off of fentanyl because it had caused sedation with the dose is increased to 75 mcg/h. She is currently managing it with immediate release oxycodone, but to get any relief she is having to take two 30 mg tablets 4 times a day. She has been feeling a little bit better generally, as she has retired and she is no longer having to try and work. She is able to do housework. ECOG score is 1. Her appetite is not too good, but her weight is up 5 pounds. She does not have fever or night sweats. She has not had sore mouth or throat. She does not complain of cough, and she has not been having shortness of breath or chest pain. She sometimes has nausea, mainly when her pain is really bad. Her acid reflux is adequately managed with medication, and bowel function also has been adequate with stool softeners. She has no complaints. She has no other joint or bone pain. She does not have headache or dizziness. She has numbness in the right leg. Medications: DULoxetine HCl 1 Capsule (of 30 mg) Capsule Delayed Release Particles Oral daily, fentaNYL 1 Patch(es) (of 50 mcg/hr) Patch 72 Hr Transdermal q 72 hours PRN, Furosemide 1 (40 mg) Tablet Oral daily, Gabapentin 3 Capsule (of 300 mg) Oral t.i.d., Klor-Con 10 1 (10 meq) Tablet, controlled release Oral daily, Lisinopril 1 (5 mg) Tablet Oral daily, Metoprolol Tartrate Tablet Oral, oxyCODONE HCl 1 - 2 Tablet (of 5 mg) Oral q 4 to 6 hours PRN, Pantoprazole Sodium 1 (20 mg) Tablet, enteric coated Oral b.i.d. Allergies: Amoxicillin, Penicillins, and Phenytoin Sodium Extended. Vital Signs: Performed on Jun 15, 2021 10:49 Height - 64.00 in Weight - 184.4 lbs (HIGH) BSA - 1.89 sq.m BMI - 31.65 (HIGH) Temperature - 98.5 F Pulse - 87 /min Respiration - 16 /min BP - 196/97 mm(hg) (HIGH) O2 Sat - 95 % (LOW) Pain - 7 Fatigue - 9 Physical Examination: Constitutional - She does not appear acutely ill, Eyes - Sclerae nonicteric. Conjunctivae clear, ENMT - No lesions noted in the oral cavity, Hematologic/Lymphatic - No cervical, clavicular, or axillary adenopathy, Respiratory - Lungs sound clear, Cardiovascular - Heart rhythm is regular. There is no murmur, gallop, or rub noted, Abdomen - Soft. Liver and spleen are not enlarged. There is no abdominal mass or ascites noted and there is no inguinal adenopathy, Extremities - There is induration involving the distal right thigh and there is marked induration and firmness in the popliteal fossa extending down into the right leg. The area remains very sensitive to touch, particularly the upper calf, Neurologic - No focal neurologic deficits noted. Problem List: 1. 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 2. Hypertension. 3. Metabolic syndrome. 4. History of diastolic congestive heart failure. 5. GERD. 6. Obstructive sleep apnea. 7. Degenerative arthritis. 8. Anxiety/depression. 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 She underwent wide excision on 02/14/2020. Margins were uninvolved, but there was tumor noted within <0.1 cm of the deep margin. She underwent postoperative radiation, completed on 06/02/2020 to a total dose of 6000 cGy administered over 30 fractions. Her management was complicated by a staph aureus wound infection, was treated at wound care. As of her follow-up visit in November 2020 it appeared to have healed adequately, but she was still having significant pain in her right leg, severe enough that she did require opiate pain medication. At that point I did arrange for referral to pain clinic. During the past several months she has had significant worsening of pain in the right leg. The involved area is markedly indurated and it is very sensitive to touch. I suspect that this is mostly due to long-term effects of the radiation, though recurrent infection and/or recurrence of sarcoma is not excluded. She has not had repeat imaging because she has not been able to hold her leg still long enough to complete an MRI. Her pain management has been problematic as it has not been well controlled even with relatively high dose opiate medication. She has being scheduled now to have an MRI under sedation at [facility] in [place]. In the meantime, I will have her restart fentanyl at 50 mcg/h and she will continue immediate release oxycodone with 1 or 2 30 mg tablets up to 4 times a day as needed. Signed By: Dhruv Maria M.D. <<Signature on File>>
== END 2021-06-15 09:03 | disposition home or self-care (01) ==
LOC: ONCMED 09:09
PROVIDERS: PCP Internal Medicine; Visit Provider Internal Medicine Medical Oncology
DX: C49.21 Malignant neoplasm of connective and soft tissue of right lower limb, including hip (principal); I10 Essential (primary) hypertension; I50.30 Unspecified diastolic (congestive) heart failure; K21.9 Gastro-esophageal reflux disease without esophagitis; G47.33 Obstructive sleep apnea (adult) (pediatric); F41.9 Anxiety disorder, unspecified; F32.A Depression, unspecified; Z87.891 Personal history of nicotine dependence
CPT/HCPCS: 99214

== ENCOUNTER 2021-07-21 09:27 | Outpatient (CLI) | payer MEDICARE, SELFPAY ==
[2021-07-21 11:39] LABS: Adenovirus Not Detected (NOT DETECT); Chlamydia Pneumoniae Not Detected (NOT DETECT); Coronavirus 229E,HKU1,NL63,OC4 Not Detected (NOT DETECT); Human Metapneumovirus Not Detected (NOT DETECT); Human Rhinovirus/Enterovirus Not Detected (NOT DETECT); Influenza A Not Detected (NOT DETECT); Influenza A H1 Not Detected (NOT DETECT); Influenza A H1-2009 Not Detected (NOT DETECT); Influenza A H3 Not Detected (NOT DETECT); Influenza B Not Detected (NOT DETECT); Mycoplasma Pneumoniae Not Detected (NOT DETECT); Parainfluenza Virus Type 1 Not Detected (NOT DETECT); Parainfluenza Virus Type 2 Not Detected (NOT DETECT); Parainfluenza Virus Type 3 Not Detected (NOT DETECT); Parainfluenza Virus Type 4 Not Detected (NOT DETECT); Respiratory Syncytial Virus A Not Detected (NOT DETECT); Respiratory Syncytial Virus B Not Detected (NOT DETECT); SARS-COV-2 Not Detected (NOT DETECT)
== END 2021-07-21 09:28 | disposition home or self-care (01) ==
PROVIDERS: PCP Internal Medicine; Visit Provider Internal Medicine Medical Oncology
DX: U07.1 COVID-19 (principal)
CPT/HCPCS: 87635

== ENCOUNTER 2021-07-28 13:09 | Outpatient (CLI) | payer OTHER, MEDICARE, SELFPAY ==
[2021-07-28 17:56] LABS: SARS Covid-2 Antigen Negative (Negative)
== END 2021-07-28 13:10 | disposition home or self-care (01) ==
LOC: ONCMED 13:11
PROVIDERS: PCP Internal Medicine; Visit Provider Internal Medicine Medical Oncology
DX: Z01.818 Encounter for other preprocedural examination (principal); Z20.822 Contact with and (suspected) exposure to COVID-19
CPT/HCPCS: 87426

== ENCOUNTER 2021-08-12 08:56 | Outpatient (CLI) | payer MEDICARE, SELFPAY ==
--- NOTE | 2021-08-13 07:55 | ONC FU_ITS ---
Dr. Maria Patient Follow-Up Note Patient: Dennise Funes Unit #: [id number]: 1955 Dicatated By: Dhruv Maria M.D.Date of Visit:Aug 12, 2021 Onc Med Follow-up/Prog Note Chief Complaint: Undifferentiated pleomorphic sarcoma. 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 In January 2020 she was admitted to the hospital with shortness of breath and fluid retention, presumably due to diastolic congestive heart failure. At that time she also had swelling in her right leg and a palpable mass in the area of the right knee. MRI of the right knee on 01/23/2020 showed a T2 hyperintense lobulated enhancing mass measuring 3.9 x 2.2 x 2.8 cm, suspicious for neoplasm. She underwent ultrasound directed biopsy of the mass on 01/24/2020. 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 Her CT scans of the chest, abdomen, and pelvis on 01/31/2020 showed no evidence of metastatic disease. She was seen by Dr. Yury Verdugo at [facility] on 02/06/2020, and on 02/14/2020 she underwent wide excision of the mass in the right posterior lateral knee area. 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 The tumor measured 5.0 x 4.1 x 3.0 cm. It was noted to have a mitotic rate of 39/10 hpf. There was estimated 20% tumor necrosis. The resection margins were negative for tumor, but there was tumor noted less than 0.1 cm from the deep margin. She was seen by Dr. Murphy for postoperative radiation. Her treatment initially was delayed for adequate wound healing. She eventually began radiation on 04/08/2020, and she completed treatment on 06/02/2020 to a total dose of 6000 cGy administered in 30 fractions. Her treatment was complicated by methicillin sensitive staph aureus wound infection and cellulitis of the right leg. She otherwise tolerated the treatment well. I had seen her initially on 07/03/2020 to assist with her surveillance care. At that point she was having significant pain in her right leg, for which she was prescribed a fentanyl patch and immediate release oxycodone. I also had her start gabapentin, as the pain appears to be neuropathic in origin. Her surveillance CT scans on 08/14/2020 showed a medial left upper lobe pulmonary nodule measuring 7 mm, minimally increased compared to previous study from January 2020. There was otherwise no evidence for metastatic disease in the chest, abdomen, or pelvis. She continued expectant management. Her other medical illnesses include hypertension, metabolic syndrome, diastolic congestive heart failure, GERD, obstructive sleep apnea, degenerative arthritis, and anxiety/depression. She has a history of smoking 2 packs of cigarettes a day for 35 years, but she quit smoking in 2014. INTERIM HISTORY: On 03/12/2021 she had been seen with complaints of increased pain and swelling in her right leg. There was associated erythema in the involved area also felt warm to touch. She restarted empiric antibiotic coverage with doxycycline. She required an increase in her opiate pain medication. She was scheduled for further evaluation with MRI. There was delay in getting that study completed, as even after several attempts she had been unable to hold her leg still for a long enough time period, even with sedation. We are finally able to get the MRI completed at [facility] in [place] on 07/30/2021. It showed a moderate to large degree of nonmasslike increased T2 signal intensity and enhancement involving multiple muscles within the lateral aspect of the distal thigh and upper leg. These were presumably postsurgical and post therapeutic in nature. The abnormalities were suboptimally evaluated as the apparent region of interest was on the edge of the [id number] for both exams. There was no definite evidence of a discrete soft tissue mass or nodular enhancement to definitely suggest the presence of residual or recurrent disease. Also noted was a mild degree of nonspecific subcutaneous soft tissue edema. There was no evidence of any acute osseous abnormality or focal bony lesion. She is seen for a follow-up visit. She continues to have significant pain in the right leg. It is currently being managed with immediate release oxycodone and gabapentin. She says her energy is not good and she has limited activity. She is able to do some housework. ECOG score is 1. Her appetite is not very good. Her weight is stable. She has not had fever. She does have episodes of sweating which can be during the daytime or at night. She has not had sore mouth or throat. She does not complain of cough, and she has not been having shortness of breath or chest pain. She currently has no GI complaints. In particular, her bowel function has been okay. She does have some hesitancy with urination. She has no other joint or bone pain. She does not complain of headache. She occasionally has lightheadedness. She has numbness in her right leg. She has no other focal neurologic symptoms. She is having some ongoing problems with anxiety. Medications: DULoxetine HCl 1 Capsule (of 30 mg) Capsule Delayed Release Particles Oral daily, fentaNYL 1 Patch(es) (of 50 mcg/hr) Patch 72 Hr Transdermal q 72 hours PRN, Furosemide 1 (40 mg) Tablet Oral daily, Gabapentin 3 Capsule (of 300 mg) Oral t.i.d., Klor-Con 10 1 (10 meq) Tablet, controlled release Oral daily, Lisinopril 1 (5 mg) Tablet Oral daily, Metoprolol Tartrate Tablet Oral, oxyCODONE HCl 1 - 2 Tablet (of 5 mg) Oral q 4 to 6 hours PRN, Pantoprazole Sodium 1 (20 mg) Tablet, enteric coated Oral b.i.d. Allergies: Amoxicillin, Penicillins, and Phenytoin Sodium Extended. Vital Signs: Performed on Aug 12, 2021 09:10 Height - 64.00 in Weight - 182.6 lbs (LOW) BSA - 1.88 sq.m BMI - 31.34 (HIGH) Temperature - 98.7 F Pulse - 86 /min Respiration - 19 /min BP - 195/83 mm(hg) (HIGH) O2 Sat - 96 % Pain - 4 Fatigue - 6 Physical Examination: Constitutional - She does not appear acutely ill, Eyes - Sclerae nonicteric. Conjunctivae clear, ENMT - No lesions noted in the oral cavity, Hematologic/Lymphatic - No cervical, clavicular, or axillary adenopathy, Respiratory - Lungs sound clear, Cardiovascular - Heart rhythm is regular. There is no murmur, gallop, or rub noted, Abdomen - Soft. Liver and spleen are not enlarged. There is no abdominal mass or ascites noted and there is no inguinal adenopathy, Extremities - There is induration involving the distal right thigh. There is more severe induration and firmness in the popliteal fossa extending down into the right leg. The entire area remains very sensitive to touch. There is a soft subcutaneous nodule in the medial aspect of the upper right arm, Neurologic - She does not appear to have any focal neurologic deficit. Problem List: 1. 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 2. Hypertension. 3. Metabolic syndrome. 4. History of diastolic congestive heart failure. 5. GERD. 6. Obstructive sleep apnea. 7. Degenerative arthritis. 8. Anxiety/depression. 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 She underwent wide excision on 02/14/2020. Margins were uninvolved, but there was tumor noted within <0.1 cm of the deep margin. She underwent postoperative radiation, completed on 06/02/2020 to a total dose of 6000 cGy administered over 30 fractions. Her management was complicated by a staph aureus wound infection, which was treated at wound care. As of her follow-up visit in November 2020 it appeared to have healed adequately, but she was still having significant pain in her right leg, severe enough to require opiate pain medication. At that point I had arranged for referral to pain clinic. During subsequent follow-up she had significant worsening of pain in the right leg. She was scheduled for repeat MRI, but she had difficulty holding her leg still long enough to get that study completed, even with sedation. It was eventually able to be done at [facility] in [place] on 07/30/2021. It showed posttreatment changes in the distal thigh and upper leg musculature, but no evidence of discrete soft tissue mass or nodular enhancement to definitively suggest residual or recurrent disease. Given those findings, she will continue on observation/symptomatic management. At this point I will have her increase gabapentin to 1200 mg 3 times daily and I also will have her try increasing duloxetine to 60 mg daily. Her opiate pain medication will be changed to extended release morphine 100 mg every 12 hours together with immediate release oxycodone as needed. If she tolerates the extended release morphine, I will then plan to convert her as needed medication to MSIR. In addition, I will arrange for her to be seen at pain clinic again by Dr. Casey. In the meantime, we will request ultrasound of the upper right arm to evaluate the soft tissue nodule, though would appear to be most likely a lipoma. Signed By: Dhruv Maria M.D. <<Signature on File>>
== END 2021-08-12 08:57 | disposition home or self-care (01) ==
PROVIDERS: PCP Internal Medicine; Visit Provider Internal Medicine Medical Oncology
DX: C44.702 Unspecified malignant neoplasm of skin of right lower limb, including hip (principal); I10 Essential (primary) hypertension; E88.81 Metabolic syndrome and other insulin resistance; K21.9 Gastro-esophageal reflux disease without esophagitis; G47.33 Obstructive sleep apnea (adult) (pediatric); M19.90 Unspecified osteoarthritis, unspecified site; F41.9 Anxiety disorder, unspecified; F32.A Depression, unspecified; Z86.79 Personal history of other diseases of the circulatory system; Z79.899 Other long term (current) drug therapy; Z92.3 Personal history of irradiation
CPT/HCPCS: 99214

== ENCOUNTER 2021-09-01 06:32 | Outpatient (CLI) | payer MEDICARE, SELFPAY ==
--- NOTE | 2021-09-01 06:54 | US_ITS ---
WS: [id number] ULTRASOUND SOFT TISSUES RIGHT arm HISTORY: RT ANTERIOR ARM MASS COMPARISON: None available. TECHNIQUE: 2-D and color Doppler imaging is submitted. In the area of palpable abnormality there is a very ill-defined isoechoic mass to the adjacent fat. T his measures 3.1 x 1.0 x 3.2 cm and probably represents a lipoma. There is no increased vascularity. No space-occupying mass. US/US soft tissue/extremity [id number] IMPRESSION: Palpable area in the RIGHT anterior arm is isoechoic to the adjacent fat. This is probably a small lipoma.
== END 2021-09-01 06:33 | disposition home or self-care (01) ==
LOC: RAD 06:33
PROVIDERS: PCP Internal Medicine; Visit Provider Internal Medicine Medical Oncology
DX: R22.31 Localized swelling, mass and lump, right upper limb (principal)
CPT/HCPCS: 76882

== ENCOUNTER 2022-03-09 13:31 | Oncology outpatient (recurring) (ONCR) | payer MEDICARE, SELFPAY ==
[2022-03-09 15:26] LABS: Basophils % 0.5 %; Eosinophils # 0.1 10^3/uL (0.0-0.8); Eosinophils % 1.5 %; Hematocrit 38.3 % (37.0-47.0); Hemoglobin 12.2 g/dL (11.5-15.3); Lymphocytes # 1.9 10^3/uL (0.8-4.8); Lymphocytes % 32.6 %; Mean Corpuscular HGB Conc 31.9 g/dL (30.0-36.0); Mean Corpuscular Hemoglobin 29.3 pg (28.0-34.0); Mean Corpuscular Volume 91.8 fl (81-99); Mean Platelet Volume 9.8 fL (7.4-10.4); Monocytes # 0.5 10^3/uL (0.2-0.9); Monocytes % 8.8 %; Neutrophils # 3.28 10^3/uL (1.8-7.7); Neutrophils % 56.4 %; Nucleated Red Blood Cells % 0 %; Platelet Count 267 10^3/cmm (130-400); Red Blood Count 4.17 10^6/uL (4.1-5.3); Red Cell Distribution Width 13.5 % (12.1-15.1); White Blood Count 5.8 10^3/uL (4.0-10.0)
[2022-03-09 15:56] LABS: Alanine Aminotransferase 26 U/L (0-33); Alkaline Phosphatase 126 U/L (35-105); Anion Gap 15.8 (5-19); Aspartate Amino Transferase 43 U/L (0-32); Blood Urea Nitrogen 15 mg/dL (8-23); Calcium 8.5 mg/dL (8.5-10.5); Carbon Dioxide 26 mmol/L (22-29); Chloride 100 mmol/L (98-107); Globulin 2.7 g/dL (1.3-4.6); Glucose 94 mg/dL (65-115); Osmolality Calculated 287 mOsm/kg (285-295); Potassium 3.8 mmol/L (3.5-5.1); Sodium 138 mmol/L (136-145); Total Bilirubin 0.3 mg/dL (0.15-1.2); Total Protein 6.7 g/dL (6.6-8.7)
== END 2022-03-15 23:59 | disposition home or self-care (01) ==
PROVIDERS: PCP Internal Medicine; Visit Provider Internal Medicine Medical Oncology
DX: Z08 Encounter for follow-up examination after completed treatment for malignant neoplasm (principal); Z85.831 Personal history of malignant neoplasm of soft tissue; Z79.891 Long term (current) use of opiate analgesic; M79.604 Pain in right leg; Z92.3 Personal history of irradiation; M54.50 Low back pain, unspecified; R22.9 Localized swelling, mass and lump, unspecified; R53.83 Other fatigue
CPT/HCPCS: 36415; 80053; 84443; 85025; 99214

== ENCOUNTER 2022-04-12 14:32 | Oncology outpatient (recurring) (ONCR) | payer MEDICARE, SELFPAY | END 2022-04-14 23:59 | disposition home or self-care (01) | PROVIDERS: PCP Internal Medicine; Visit Provider Internal Medicine Medical Oncology | DX: Z08 Encounter for follow-up examination after completed treatment for malignant neoplasm (principal); Z85.831 Personal history of malignant neoplasm of soft tissue; R59.0 Localized enlarged lymph nodes; Z92.3 Personal history of irradiation; Z87.891 Personal history of nicotine dependence | CPT/HCPCS: 99214 ==

== ENCOUNTER 2022-04-16 08:30 | Outpatient (CLI) | payer MEDICARE, SELFPAY ==
--- NOTE | 2022-04-16 10:00 | CT_ITS ---
WS: [id number] CT CHEST, ABDOMEN AND PELVIS HISTORY: Right inguinal mass TECHNIQUE: Contiguous 5 mm axial imaging performed through the chest, abdomen and pelvis IV contrast, oral contrast has been provided. Coronal and sagittal reformats chest. Coronal and sagittal reformat s through the abdomen and pelvis. All CT scans at [facility] use at least one of these dose o ptimization techniques: automated exposure control; mA and/or kV adjustment per patient size (include s targeted exams where dose is matched to clinical indication); or iterative reconstruction. CONTRAST: Omnipaque 300; 95 mL IV. DLP: 1847.58 mGy.cm COMPARISON: 04/08/[address]: Increase in size of the subsolid nodule medial LEFT upper lobe now measuring 1.7 x 1.3 cm. Chronic linear atelectasis in the central LEFT upper lobe has not significantly changed. There are ve ry few scattered 2 mm micronodules throughout the lungs. Mediastinal and hilar lymph nodes are stable . The lymph node burden has not significantly increased. The largest lymph nodes are in the hilar reg ions measuring up to 9 mm. No pericardial or pleural effusion. Mild enlargement of the LEFT heart michael mbers. Mild atherosclerosis aorta. Abdomen CT: Diffuse hepatic steatosis. No metastatic lesions within the liver. No change in the 15 mm hepatic hemangioma in the LEFT lobe. Portal vein is normal. Prior cholecystectomy. Normal size splee n. Normal pancreas. Known bilateral adrenal nodules. The largest on the RIGHT measures 3.5 x 2.4 cm. These are stable and present over multiple prior years. Bilateral cortical cystic lesions within each kidney. No solid mass identified. Moderate atherosclerosis aorta. Atherosclerotic plaque in the prox imal celiac axis. No small bowel obstruction. There is moderate fecal retention. Prior appendectomy. Central mesenteric soft tissue mass is new measuring 5.0 x 3.0 cm. No additional suspicious masses or nodules within the mesentery. Pelvic CT: Well-distended urinary bladder. Extensive artifact through the pelvis from the patient's b ilateral hip prostheses. Enlarged hypervascular RIGHT inguinal lymph node measures 2.5 x 1.9 cm. Prio r hysterectomy. No osteoblastic or osteolytic bone lesions are identified. CT/CT chest abd pel w con* IMPRESSION: 1. Central mesenteric soft tissue mass is new measuring 5.0 x 3.0 cm. Likely m esenteric tumor deposition/lymph node group. 2. New hypervascular enlarged RIGHT inguinal lymph node measuring 2.5 x 1.9 cm . 3. Increase in size medial LEFT upper lobe subsolid pulmonary nodule now measu ring 1.7 x 1.3 cm. 4. Findings are suspicious for metastatic disease from patient's known sarcoma . Consider PET/CT imaging evaluation 5. Stable bilateral long-term adrenal nodules. 6. Mildly prominent but stable hilar lymph nodes. 7. Bilateral renal cysts. 8. Hiatal hernia.
[2022-04-16 11:17] LABS: Basophils % 0.8 %; Hematocrit 40.7 % (37.0-47.0); Hemoglobin 12.9 g/dL (11.5-15.3); Lymphocytes # 1.2 10^3/uL (0.8-4.8); Lymphocytes % 31.6 %; Mean Corpuscular HGB Conc 31.7 g/dL (30.0-36.0); Mean Corpuscular Hemoglobin 29.1 pg (28.0-34.0); Mean Corpuscular Volume 91.7 fl (81-99); Mean Platelet Volume 8.8 fL (7.4-10.4); Monocytes # 0.3 10^3/uL (0.2-0.9); Monocytes % 8.4 %; Neutrophils # 2.21 10^3/uL (1.8-7.7); Neutrophils % 57.7 %; Nucleated Red Blood Cells % 0 %; Platelet Count 225 10^3/cmm (130-400); Red Blood Count 4.44 10^6/uL (4.1-5.3); Red Cell Distribution Width 13.5 % (12.1-15.1); White Blood Count 3.8 10^3/uL (4.0-10.0)
[2022-04-16] MEDS: iohexol 350 mg/mL 500 mL Btl (per mL) IV (11:22)
[2022-04-16 11:29] LABS: Alanine Aminotransferase 20 U/L (0-33); Albumin Level 3.7 g/dL (3.5-5.2); Alkaline Phosphatase 115 U/L (35-105); Anion Gap 12.6 (5-19); Aspartate Amino Transferase 22 U/L (0-32); Blood Urea Nitrogen 8 mg/dL (8-23); Calcium 8.3 mg/dL (8.5-10.5); Carbon Dioxide 25 mmol/L (22-29); Chloride 97 mmol/L (98-107); Globulin 2.9 g/dL (1.3-4.6); Glomerular Filtration Rate 123.8 mL/min (90-130); Glucose 101 mg/dL (65-115); Osmolality Calculated 270 mOsm/kg (285-295); Potassium 3.6 mmol/L (3.5-5.1); Sodium 131 mmol/L (136-145); Total Bilirubin 0.4 mg/dL (0.15-1.2); Total Protein 6.6 g/dL (6.6-8.7)
== END 2022-04-16 08:31 | disposition home or self-care (01) ==
PROVIDERS: PCP Internal Medicine; Visit Provider Internal Medicine Medical Oncology
DX: C49.21 Malignant neoplasm of connective and soft tissue of right lower limb, including hip (principal); N28.1 Cyst of kidney, acquired; K44.9 Diaphragmatic hernia without obstruction or gangrene; R59.0 Localized enlarged lymph nodes
CPT/HCPCS: 36415; 71260; 74177; 80053; 85025; Q9967

== ENCOUNTER 2022-04-29 20:24 | Inpatient (IN) | payer MEDICARE, SELFPAY ==
[2022-04-29] VITALS (7 sets, daily range): BP systolic 136–196; BP diastolic 61–100; PULSE 61–71; RESP 16–19; TEMP 36.6; O2SAT 94–99; BMI 32.2
--- NOTE | 2022-04-29 20:26 | ECG_ITS ---
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 Measurements Intervals [place] Rate: 59 P: 53 MS: 191 QRS: 24 QRSD: 158 T: 203 QT: 479 QTc: 477 Interpretive Statements SINUS BRADYCARDIA LEFT BUNDLE BRANCH BLOCK [120+ ms QRS DURATION, 80+ ms Q/S IN V1/V2, 85+ ms R IN I/aVL/V5/V6] Compared to ECG 01/20/2020 17:45:54 Sinus tachycardia no longer present Electronically Signed On 04-30-2022 13:47:17 IT PROJECT MANAGER by Pawan Staton M.D. [email or web address]
--- NOTE | 2022-04-29 20:26 | XRR_ITS ---
PROCEDURE INFORMATION: Exam: XR Chest Exam date and time: 04/29/2022 8:40 PM Age: 67 years old Clinical indication: Chest wall pain; Additional info: Cp TECHNIQUE: Imaging protocol: Radiologic exam of the chest. Views: 1 view. COMPARISON: DX XR chest 1V portable [id number] 04/29/2022 9:52 AM FINDINGS: Lungs: Unremarkable. No consolidation. Pleural spaces: Unremarkable. No pleural effusion. No pneumothorax. Heart/Mediastinum: Unremarkable. No cardiomegaly. Bones/joints: Unremarkable. XR/XR chest 1V portable [id number] IMPRESSION: No acute findings.
--- NOTE | 2022-04-29 20:41 | W.ED.CHESTPA ---
HPI - Chest Pain General: Chief Complaint: Chest Pain Stated Complaint: CHEST PAIN Time Seen by Provider: 04/29/22 20:25 Source: patient and EMS Mode of arrival: EMS Limitations: no limitations History of Present Illness: 67-year-old female states that she is having chest pain today along with near syncopal event and diaphoresis she was seen at another ER decided to leave states should have an pain again along with high blood pressure and diaphoresis this evening at 7 PM patient arrived here by ambulance states her pain has improved she is still hypertensive she denies any shortness of breath currently. No history of heart disease. Associated symptoms: Reports dyspnea; Deny abdominal pain, fever(s), nausea or vomiting Review of Systems Const: Denies: fever(s), chills, body aches or change in appetite Eyes: Denies: blurry vision or eye discomfort ENMT: Denies: throat pain or dental pain Card: Reports: chest pain Resp: Reports: dyspnea GI: Denies: abdominal pain, nausea, vomiting or diarrhea : Denies: dysuria Musc: Denies: neck pain or back pain Skin/Breast: Denies: rash Neuro: Denies: headache(s) Psych: Denies: depression Govind/Lymph: Denies: easy bruising All/Imm: Denies: urticaria PFSH ED PFSH: Medical History Anxiety and depression Chronic narcotic use Chronic pain of right knee COPD (chronic obstructive pulmonary disease) Degenerative arthritis GERD (gastroesophageal reflux disease) Heart failure with preserved ejection fraction History of nonmelanoma skin cancer Hypertension Lisinopril, Lasix added. Metabolic syndrome Sarcoma of right lower extremity Sleep apnea Surgical History H/O tubal ligation History of hernia repair History of partial hysterectomy History of surgery on lower extremity (02/14/20) 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 Bean History of total right hip arthroplasty Hx of appendectomy Family History Mother Family history of premature coronary artery disease Hypertension Brother Cancer Hypertension Sister Cancer Father Family history of premature coronary artery disease Hypertension Denies family history of Diabetes CAD (coronary artery disease) Clotting disorder Dementia Hyperlipidemia Psychiatric illness Chronic kidney disease (CKD) Suicide Anesthesia complication Bleeding disorder Lung disease Stroke Social History Smoking and tobacco status: former smoker (smoked x 40 years) Quit status (tobacco): has quit using tobacco Year quit tobacco: 2016 Former quit date comment: 2ppd x 36 years Second hand smoke exposure: No Alcohol intake: never Adopted: No Caregiver/support person: Yes Lives independently: Yes Marital status: Single Current occupational status: employed 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 History of recent travel: No Physical Exam Const: COMMON NORMALS: no acute distress, patient oriented x3 and healthy appearing HENMT: COMMON NORMALS: normocephalic and atraumatic HEAD & SCALP: normocephalic and atraumatic Eye: COMMON NORMALS: Equal, round and reactive pupils present and EOMs intact bilaterally PUPIL: Yes Equal, round and reactive pupils present Neck/C-Spine: COMMON NORMALS: full ROM and supple Chest: COMMONS NORMALS: normal inspection of the chest and normal palpation of entire chest wall Resp: COMMON NORMALS: normal respiratory effort, No retractions, No use of accessory muscles and clear to auscultation bilaterally AUSCULTATION: clear to auscultation bilaterally Cardio: COMMON NORMALS: regular rate, regular rhythm and No murmurs present (Cardio) RATE: regular rate RHYTHM: regular rhythm GI: COMMON NORMALS: Normal to inspection, nondistended, normoactive bowel sounds present, Soft to palpation, non-tender and no masses PALPATION: Yes Soft to palpation Extremity: COMMON NORMALS: normal to inspection and full ROM Neuro: COMMON NORMALS: patient oriented x3, moves all extremities and no focal motor deficits Psych: COMMON NORMALS: mental status grossly normal, Normal thought process present and cooperative THOUGHT PROCESS: Normal thought process present Skin: COMMON NORMALS: no rashes or lesions noted and no wounds GENERAL SKIN EXAM: no rashes or lesions noted Course Vital Signs: Vital signs: Vital Signs Temperature 97.9 F 04/29/22 20:25 Pulse Rate 71 04/29/22 22:30 Respiratory Rate 18 04/29/22 22:30 Blood Pressure 145/61 04/29/22 22:30 Pulse Oximetry 94 04/29/22 22:30 Oxygen Delivery Me thod 04/29/22 22:30 Oxygen Flow Rate 2 04/29/22 22:30 MDM - Chest Pain Medical Decision Making Patient presents here with chest pain initial troponin here is normal also having high blood pressure along with some hypoxia pain hypoxia may be due to her sarcoma she had a CT scan at [facility] will get results from there we will admit here for observation. Lab Data 04/29/22 21:05 04/29/22 21:05 Radiology Impressions Chest X-Ray 04/29/22 20:26 IMPRESSION: No acute findings. Laboratory Results WBC 5.5 10^3/uL (4.0-10.0) 04/29/22 21:05 RBC 4.57 10^6/uL (4.1-5.3) 04/29/22 21:05 Hgb 13.3 g/dL (11.5-15.3) 04/29/22 21:05 Hct 41.6 % (37.0-47.0) 04/29/22 21:05 MCV 91.0 fl (81-99) 04/29/22 21:05 MCH 29.1 pg (28.0-34.0) 04/29/22 21:05 MCHC 32.0 g/dL (30.0-36.0) 04/29/22 21:05 RDW 14.0 % (12.1-15.1) 04/29/22 21:05 Plt Count 258 10^3/cmm (130-400) 04/29/22 21:05 MPV 9.0 fL (7.4-10.4) 04/29/22 21:05 Neut % (Auto) 56.7 % 04/29/22 21:05 Lymph % (Auto) 33.8 % 04/29/22 21:05 [place] % (Auto) 7.3 % 04/29/22 21:05 Eos % (Auto) 1.3 % 04/29/22 21:05 Baso % (Auto) 0.7 % 04/29/22 21:05 Neut # (Auto) 3.10 10^3/uL (1.8-7.7) 04/29/22 21:05 Lymph # (Auto) 1.9 10^3/uL (0.8-4.8) 04/29/22 21:05 [place] # (Auto) 0.4 10^3/uL (0.2-0.9) 04/29/22 21:05 Eos # (Auto) 0.1 10^3/uL (0.0-0.8) 04/29/22 21:05 Baso # (Auto) 0.0 10^3/uL (0.0-0.1) 04/29/22 21:05 Nucleated RBC % (auto) 0 % 04/29/22 21:05 Nucleated RBCs # 0.0 /100WBC 04/29/22 21:05 Sodium 142 mmol/L (136-145) 04/29/22 21:05 Potassium 4.1 mmol/L (3.5-5.1) 04/29/22 21:05 Chloride 102 mmol/L (98-107) 04/29/22 21:05 Carbon Dioxide 31 mmol/L (22-29) H 04/29/22 21:05 Anion Gap 13.1 (5-19) 04/29/22 21:05 BUN 12 mg/dL (8-23) 04/29/22 21:05 Creatinine 0.6 mg/dL (0.5-0.9) 04/29/22 21:05 GFR Calculation 100.0 mL/min (90-130) 04/29/22 21:05 Glucose 109 mg/dL (65-115) 04/29/22 21:05 Calculated Osmolality 294 mOsm/kg (285-295) 04/29/22 21:05 Calcium 10.9 mg/dL (8.5-10.5) H 04/29/22 21:05 Total Bilirubin 0.4 mg/dL (0.15-1.2) 04/29/22 21:05 AST 26 U/L (0-32) 04/29/22 21:05 ALT 28 U/L (0-33) 04/29/22 21:05 Alkaline Phosphatase 145 U/L (35-105) H 04/29/22 21:05 Troponin T Baseline 9 ng/L (0-10) 04/29/22 21:05 Total Protein 7.0 g/dL (6.6-8.7) 04/29/22 21:05 Albumin 4.5 g/dL (3.5-5.2) 04/29/22 21:05 Globulin 2.5 g/dL (1.3-4.6) 04/29/22 21:05 EKG Data EKG 1: I personally reviewed and interpreted this EKG as follows: EKG interpretation date: 04/29/22 EKG interpretation time: 20:35 Interpretation: sinus johnnie hr [address] or t wave abnormalities qrs 158 qtc 479 Discharge Plan Discharge Patient Disposition: Placed in Observation Clinical Impression: Chest pain, Hypertension Coding Level of Care Code ED Loss Prevention/Safety District Manager for Chg Fwd Exam Comprehensive
[2022-04-29 21:11] LABS: Basophils % 0.7 %; Eosinophils # 0.1 10^3/uL (0.0-0.8); Eosinophils % 1.3 %; Hematocrit 41.6 % (37.0-47.0); Hemoglobin 13.3 g/dL (11.5-15.3); Lymphocytes # 1.9 10^3/uL (0.8-4.8); Lymphocytes % 33.8 %; Mean Corpuscular Hemoglobin 29.1 pg (28.0-34.0); Monocytes # 0.4 10^3/uL (0.2-0.9); Monocytes % 7.3 %; Neutrophils % 56.7 %; Nucleated Red Blood Cells % 0 %; Platelet Count 258 10^3/cmm (130-400); Red Blood Count 4.57 10^6/uL (4.1-5.3); White Blood Count 5.5 10^3/uL (4.0-10.0)
[2022-04-29] MEDS: hyDRALAzine 20 mg/mL INJ 1 mL 10 MG IVP (21:11)
[2022-04-29] MEDS: ondansetron 2 mg/ML SDV 2 mL 4 MG IVP ×2 (21:23→23:57)
[2022-04-29] MEDS: morphine 4 mg/mL SDV 1 mL IVP (21:23)
[2022-04-29 21:35] LABS: Troponin(5th) Baseline 9 ng/L (0-10)
[2022-04-29 21:36] LABS: Alanine Aminotransferase 28 U/L (0-33); Albumin Level 4.5 g/dL (3.5-5.2); Alkaline Phosphatase 145 U/L (35-105); Anion Gap 13.1 (5-19); Aspartate Amino Transferase 26 U/L (0-32); Blood Urea Nitrogen 12 mg/dL (8-23); Calcium 10.9 mg/dL (8.5-10.5); Carbon Dioxide 31 mmol/L (22-29); Chloride 102 mmol/L (98-107); Globulin 2.5 g/dL (1.3-4.6); Glucose 109 mg/dL (65-115); Osmolality Calculated 294 mOsm/kg (285-295); Potassium 4.1 mmol/L (3.5-5.1); Sodium 142 mmol/L (136-145); Total Bilirubin 0.4 mg/dL (0.15-1.2)
--- NOTE | 2022-04-29 22:26 | ECG_ITS ---
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 Measurements Intervals [place] Rate: 60 P: 51 RI: 203 QRS: 22 QRSD: 146 T: 185 QT: 454 QTc: 457 Interpretive Statements SINUS RHYTHM LEFT BUNDLE BRANCH BLOCK [120+ ms QRS DURATION, 80+ ms Q/S IN V1/V2, 85+ ms R IN I/aVL/V5/V6] Compared to ECG 04/29/2022 20:35:12 Sinus bradycardia no longer present Electronically Signed On 04-30-2022 13:52:04 LAMP SHADE ASSEMBLER by Pawan Staton M.D. [id number]
--- NOTE | 2022-04-29 22:28 | PM.HP ---
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 She started having symptoms around 6 PM, patient is describing her symptoms as diaphoresis associated with pressure-like sensation which starts around left upper chest that radiates towards her left shoulder, it would last 3 to 5 minutes. In the ER her troponins are negative, EKG showing chronic left bundle branch block with sinus bradycardia. She was hypertensive which improved with use of hydralazine 10 mg. She is nauseous. Hospital service has been requested for evaluation of chest pain. The ER she received hydralazine, therapeutic aspirin and morphine along nitroglycerin Patient is stating she is due for a PET scan next week at [place] Review of Systems Const: Reports: body aches and fatigue Eyes: Denies: change in vision ENMT: Denies: throat pain Card: Reports: chest pain Resp: Reports: dyspnea GI: Reports: abdominal pain and nausea : Denies: flank pain Musc: Reports: extremity pain Skin/Breast: Reports: rash Neuro: Denies: headache(s) Psych: Reports: anxiety Endo: Denies: polyuria Govind/Lymph: Denies: easy bruising All/Imm: Denies: urticaria Medications/Allergies Home Medications Medication Instructions Recorded Confirmed Last Taken Type duloxetine 60 mg capsule,delayed 60 mg PO DAILY #90 caps 05/14/20 04/12/22 07/28/20 06:30 Rx release albuterol sulfate 90 mcg/actuation 2 puff inhalation Q6H PRN 12/26/20 04/12/22 Unknown Rx aerosol inhaler (Ventolin HFA) Shortness Of Breath #8.5 grams furosemide 40 mg tablet 80 mg PO DAILY@0800 #60 tabs 02/23/21 04/12/22 Unknown Rx lisinopril 5 mg tablet 5 mg PO DAILY #30 tabs 02/23/21 04/12/22 Unknown Rx pantoprazole 40 mg tablet,delayed See Rx Instructions .Route 07/21/21 04/12/22 Unknown Rx release .COMPLEX #180 tabs hydroxyzine pamoate 25 mg capsule See Rx Instructions .Route 12/15/21 04/12/22 Unknown Rx .COMPLEX #90 caps gabapentin 600 mg tablet 600 mg PO TID #90 tabs 03/09/22 04/12/22 Unknown Rx morphine 100 mg tablet,extended 100 mg PO TID 30 days #90 tabs 03/09/22 04/12/22 Unknown Rx release oxycodone 30 mg tablet 30 mg PO QID PRN pain 30 days #120 04/23/22 Unknown Rx tabs Allergies Allergy/AdvReac Type Severity Reaction Status Date / Time phenytoin [From Dilantin] Allergy Mild Rash Verified 04/29/22 20:30 PFSH Acute PFSH: Medical History (Updated 04/29/22 @ 22:40 by Agustin Hernandez MD) Anxiety and depression Chronic narcotic use Chronic pain of right knee COPD (chronic obstructive pulmonary disease) Degenerative arthritis GERD (gastroesophageal reflux disease) Heart failure with preserved ejection fraction History of nonmelanoma skin cancer Hypertension Metabolic syndrome Sarcoma of right lower extremity Sleep apnea Surgical History H/O tubal ligation History of hernia repair History of partial hysterectomy History of surgery on lower extremity (02/14/20) 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 Bean History of total right hip arthroplasty Hx of appendectomy Family History Mother Family history of premature coronary artery disease Hypertension Brother Cancer Hypertension Sister Cancer Father Family history of premature coronary artery disease Hypertension Denies family history of Diabetes CAD (coronary artery disease) Clotting disorder Dementia Hyperlipidemia Psychiatric illness Chronic kidney disease (CKD) Suicide Anesthesia complication Bleeding disorder Lung disease Stroke Social History Smoking and tobacco status: former smoker (smoked x 40 years) Quit status (tobacco): has quit using tobacco Year quit tobacco: 2016 Former quit date comment: 2ppd x 36 years Second hand smoke exposure: No Alcohol intake: never Adopted: No Caregiver/support person: Yes Lives independently: Yes Marital status: Single Current occupational status: employed 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 History of recent travel: No Vitals/I&O/Wt Last Vital Signs Temp 97.9 F 04/29/22 20:25 Pulse 66 04/29/22 21:46 Resp 19 H 04/29/22 21:46 BP 136/61 04/29/22 21:46 Pulse Ox 95 04/29/22 21:46 O2 Del Method 04/29/22 21:46 O2 Flow Rate 2 04/29/22 21:46 Weight last 48 hrs Weight 79.379 kg Physical Exam Narrative: Morbidly obese female Currently complaining of nausea S1, S2 No audible stridor or wheezing currently on 2 L No acute respiratory distress Abdomen distended, nontender Lymphadenopathy minimal region Lower extremity edema Pleasant and cooperative Nonfocal neuro exam No acute sign of cellulitis Appropriate mood and affect Data 04/29/22 21:05 04/29/22 21:05 A&P Assessment and plan (1) Chest pain: (2) Sarcoma of right lower extremity: (3) Mass of right upper extremity: (4) Heart failure with preserved ejection fraction: (5) COPD (chronic obstructive pulmonary disease): Qualifiers: COPD type: unspecified COPD Qualified Code(s): J44.9 - Chronic obstructive pulmonary disease, unspecified (6) Radiation dermatitis: (7) Hypertension: Plan Unstable angina She also has reproducible chest pain anterior left axillary line, patient fell few days ago which she is attributing to a mechanical fall while 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 after midnight No active chest pain at this point however she is nauseous Troponins negative Left bundle branch block is chronic Hypertensive urgency improved with use of hydralazine She uses CPAP for sleep apnea overnight Recent CT scan of abdomen pelvis and chest showed recurrence of sarcoma with metastatic lesions, also has prominent pulmonary nodules, this could be the etiology for her underlying recurrence of chest discomfort however would like to rule out coronary disease Full code Echo in the morning Patient is sitting CTA done at [facility] was unremarkable DVT prophylaxis on board Attestations Medical Necessity Statement*: Anticipating discharge within 48 hours Time Spent in Patient Care: 40 Coding Level of Care Code Acute Show Host for Prachi Augila Diagnoses Chest pain R07.9 Sarcoma of right lower extremity C49.21 Mass of right upper extremity R22.31 Heart failure with preserved ejection fraction I50.30 COPD (chronic obstructive pulmonary disease) J44.9 COPD type: unspecified COPD Radiation dermatitis L58.9 Hypertension I10
[2022-04-29] MEDS: nitroglycerin 0.4 mg sublingual Tablet SUBLINGUAL (22:34)
[2022-04-29 23:38] LABS: Procalcitonin 0.05 ng/mL (0-0.5)
[2022-04-29] MEDS: oxyCODONE IR 30 mg Tablet PO (23:57)
[2022-04-29] MEDS: enoxaparin 40 mg/0.4 mL Syringe SUBCUT (23:57)
[2022-04-29] MEDS: pantoprazole DR 40 mg Tablet PO (23:57)
[2022-04-30] VITALS (64 sets, daily range): BP systolic 86–166; BP diastolic 42–95; PULSE 61–92; RESP 12–27; TEMP 36.5–37.5; O2SAT 85–97
--- NOTE | 2022-04-30 | ECG_ITS ---
[facility] Test Date: 2022-04-30 Pat Name: Dennise Funes Department: Room: 268 Gender: Female Hospital Scientist: : 1955 Requested By: Agustin Hernandez Order Number: [id number] Evgeny MD: Ruthann Mccullough M.D. Interpretive Statements NAME OF STUDY: LEXISCAN SESTAMIBI STRESS TEST INDICATION: Unstable angina PROCEDURE: At the baseline, the blood pressure was 150/75 mmHg with a heart rate of 86 bpm. The electrocardiogram showed sinus rhythm, normal axis. Left bundle branch block. The Lexiscan was infused over a period of 20 seconds. A total of 0.4 milligrams of Lexiscan was infused. The stress phase was continued for a total of 5 minutes. Heart rate at the end of the stress phase was 102 bpm with a blood pressure of 150/75 mmHg. The EKG at the peak infusion revealed sinus rhythm with left bundle branch block. Sestamibi was injected 20 seconds after the Lexiscan infusion. Blood pressure at the end of the recovery phase was 166/95 mmHg with a heart rate of 90 beats per minute. CONCLUSION: 1. Nondiagnostic EKG changes with the] LexiScan infusion due to baseline left bundle branch block. 2. No LexiScan induced chest pain or cardiac arrhythmia. 3. Normal blood pressure and heart rate response. 4. Sestamibi/sestamibi perfusion scan pending; see separate report. Electronically Signed On 04-30-2022 12:46:34 HOOP FLARING MACHINE OPERATOR by Ruthann Mccullough M.D. [id number]
--- NOTE | 2022-04-30 02:26 | ECG_ITS ---
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 Measurements Intervals [place] Rate: 65 P: 40 HI: 168 QRS: 11 QRSD: 145 T: 239 QT: 453 QTc: 474 Interpretive Statements SINUS RHYTHM LEFT BUNDLE BRANCH BLOCK [120+ ms QRS DURATION, 80+ ms Q/S IN V1/V2, 85+ ms R IN I/aVL/V5/V6] Compared to ECG 04/29/2022 22:55:07 No significant changes Electronically Signed On 04-30-2022 13:51:47 RECHECKER by Pawan Staton M.D. [id number]
[2022-04-30 02:28] LABS: Vitamin B12 205 pg/mL (232-1245)
[2022-04-30 04:55] LABS: Anion Gap 12.7 (5-19); Blood Urea Nitrogen 11 mg/dL (8-23); Calcium 9.9 mg/dL (8.5-10.5); Carbon Dioxide 30 mmol/L (22-29); Chloride 103 mmol/L (98-107); Glomerular Filtration Rate 123.4 mL/min (90-130); Glucose 96 mg/dL (65-115); Magnesium 2.2 mg/dL (1.7-2.3); Osmolality Calculated 293 mOsm/kg (285-295); Phosphorus 4.5 mg/dL (2.5-4.5); Potassium 3.7 mmol/L (3.5-5.1); Sodium 142 mmol/L (136-145)
[2022-04-30 05:02] LABS: Troponin 5 6HR 9.96 ng/L (0-10)
[2022-04-30 05:09] LABS: Troponin 5 6HR Delta 0.96 ng/L (0-12)
[2022-04-30 05:12] LABS: Basophils % 0.4 %; Eosinophils # 0.1 10^3/uL (0.0-0.8); Eosinophils % 1.4 %; Hematocrit 36.4 % (37.0-47.0); Hemoglobin 11.7 g/dL (11.5-15.3); Lymphocytes # 1.8 10^3/uL (0.8-4.8); Lymphocytes % 36.2 %; Mean Corpuscular HGB Conc 32.1 g/dL (30.0-36.0); Mean Corpuscular Hemoglobin 29.3 pg (28.0-34.0); Mean Corpuscular Volume 91.2 fl (81-99); Mean Platelet Volume 9.9 fL (7.4-10.4); Monocytes # 0.4 10^3/uL (0.2-0.9); Monocytes % 8.9 %; Neutrophils # 2.55 10^3/uL (1.8-7.7); Neutrophils % 52.9 %; Nucleated Red Blood Cells % 0 %; Platelet Count 228 10^3/cmm (130-400); Red Blood Count 3.99 10^6/uL (4.1-5.3); Red Cell Distribution Width 14.2 % (12.1-15.1); White Blood Count 4.8 10^3/uL (4.0-10.0)
[2022-04-30] MEDS: regadenoson 0.4 Mg/5 ml Syringe IVP (08:37)
[2022-04-30] MEDS: ondansetron 2 mg/ML SDV 2 mL 4 MG IVP ×2 (08:37→17:07)
--- NOTE | 2022-04-30 09:19 | PC.PHAR ---
Addendum entered by Ashwini Kumar 04/30/22 11:04: PT STATES SHE TAKES CARE OF HER OWN MEDICATIONS-PT STATES SHE IS TAKING CYMBALTA 30MG DAILY EXT MED HISTORY DOESNT SHOW WHEN LAST FILLED-PT STATES SHE ALSO TAKES LASIX PRN-NOTES ARE MADE IN THE PHARMACY COMMENTS Original Note: pt was in stress test @08:30-pt still not back in room @09:19
--- NOTE | 2022-04-30 09:39 | XRR_ITS ---
PROCEDURE INFORMATION: Exam: XR Left Shoulder Exam date and time: 04/30/2022 10:04 AM Age: 67 years old Clinical indication: Injury or trauma; Fall; Blunt trauma (contusions or hematomas); Shoulder; Left TECHNIQUE: Imaging protocol: Radiologic exam of the Left shoulder. Views: 2 or more views. COMPARISON: CT shoulder LT wo con* [id number] 01/20/2020 10:00 PM FINDINGS: Bones/joints: Normal. Soft tissues: Normal. XR/XR shoulder LT min 2V* [id number] IMPRESSION: No acute findings.
--- NOTE | 2022-04-30 09:39 | XRR_ITS ---
PROCEDURE INFORMATION: Exam: XR Left Ribs Exam date and time: 04/30/2022 10:08 AM Age: 67 years old Clinical indication: Injury or trauma; Fall; Rib area, left side; Blunt trauma TECHNIQUE: Imaging protocol: Radiologic exam of the Left ribs. Views: 2 views. COMPARISON: CR (CHEST, ) 04/29/2022 8:40 PM FINDINGS: Bones/joints: Normal. Soft tissues: Normal. XR/XR ribs LT 2V* [id number] IMPRESSION: No acute findings.
--- NOTE | 2022-04-30 09:39 | XRR_ITS ---
PROCEDURE INFORMATION: Exam: XR Cervical Spine Exam date and time: 04/30/2022 10:12 AM Age: 67 years old Clinical indication: Injury or trauma; Fall; Bleeding/hemorrhage TECHNIQUE: Imaging protocol: Radiologic exam of the cervical spine. Views: 2 or 3 views. COMPARISON: CT neck w con* [id number] 10/06/2020 11:36 AM FINDINGS: Bones/joints: No fracture, malalignment or other acute abnormalities are seen in the cervical spine. Chronic degenerative changes are present with joint space narrowing and small osteophytes. Soft tissues: Unremarkable. XR/XR cervical spine 3V* [id number] IMPRESSION: No acute abnormality.
[2022-04-30] MEDS: lisinopril 5 mg Tablet PO (09:49)
[2022-04-30] MEDS: gabapentin 300 mg Capsule PO ×3 (09:49→20:05)
[2022-04-30] MEDS: duloxetine 60 mg Capsule PO (09:49)
[2022-04-30] MEDS: FUROsemide 20 mg Tablet PO (09:49)
[2022-04-30] MEDS: sennosides-docusate Tablet 1 TAB PO (09:49)
[2022-04-30] MEDS: pantoprazole DR 40 mg Tablet PO ×2 (09:49→17:08)
[2022-04-30] MEDS: morphine IR 15 mg Tablet PO ×2 (09:55→17:17)
--- NOTE | 2022-04-30 13:43 | PC.SOCIAL ---
Pt qualified for oxygen at 2L continuous, Choice sheet done and patient choose HOME for her DME needs.
--- NOTE | 2022-04-30 13:57 | XACV_ITS ---
Exam Room: [facility] Ht: 163 cm Wt: 85 kg BSA: 1.99 m2 Gender: Female : 1955 Exam Priority: Routine Procedure(s): Procedure Description: Diagnostic procedure Procedure Description: Left Heart Catheterization Procedure Description: Left ventriculography Procedure Description: Coronary Angiography Diagnostic Cath Status: Urgent Diagnostic Findings * Patient was brought to the [facility] in a stable and fasting state. Informed consent was obtained. Right wrist was sterilely prepped and draped. Timeout was performed using 2 patient identifiers. Preprocedural prior was performed. Moderate conscious sedation was administered. 6 Latvian introducer was inserted into the right radial artery without difficulty. Intra-arterial verapamil and nitroglycerin were administered. IV heparin was administered. * TIG 4 diagnostic catheter was advanced to the left ventricle. Pressures were obtained. LV angiography was performed revealing normal left ventricular size systolic function with no regional wall motion abnormality. Pullback revealed no gradient across aortic valve. * Diagnostic coronary angiography was performed initially of the RCA. RCA revealed mid 40 to 50% disease. RCA was a large dominant vessel. Left main had 10 to 20% luminal regularities. LAD had 10-20% luminal regularities. Circumflex had proximal 30% disease. Conclusions 1. Normal ejection fraction visually estimated at 55%. 2. Left main 10 to 20%. 3. LAD 10 to 20%. 4. Circumflex proximal 30%. 5. RCA large dominant vessel with mid 40 to 50%. Recommendations * Implement medical therapy for management of potential vasospastic angina and to reduce future risk of cardiovascular events consider investigating other potential causes of symptom complex if clinically indicated. Diagnostic RX Recommendation: medical therapy and/or counseling Ventriculography Ejection Fraction: 55.0 % Pressures Phase:Rest AO : 134 / 69 ( 93 ) @ 2:30:00 PM 133 / 69 ( 92 ) @ 2:30:00 PM 111 / 78 ( 94 ) @ 2:32:00 PM 176 / 91 ( 91 ) @ 2:33:00 PM LV : 121 / 0 / 1 @ 2:27:00 PM 120 / -5 / -7 @ 2:28:00 PM 141 / 2 / 14 @ 2:29:00 PM 139 / 2 / 12 @ 2:30:00 PM Valves Phase:DefaultPhase AV : 5.0 @ 2:55:58 PM 5.0 @ 2:55:58 PM AV Mean Gradient: 10.0 @ 2:55:58 PM 10.0 @ 2:55:58 PM Clinical Evaluation EBL: 5mL-10mL Procedural Details Procedure Consent Obtained. Admit Source: In Patient. Pre-Procedure Time Out. Identified patient by full name and date of as verbalized by the patient/guarantor. Does the consent match the physician's order: Yes. Accurate & Complete Informed Consent: Yes. Inpatient/Outpatient History & Physical on Chart: Yes. If H&P is completed, is and addenduem needed: No; If yes, is the addendum complete: NA. Visualize and Verify Site with Patient/Guarantor: N/A. Relevant Radiology Images available: Yes. The risks, benefits, and alternatives of sedation and/or procedure were discussed by physician. The patient agrees to continue. Procedure started. Correct patient, site and procedure confirmed by cath team. PERRLA. Strong, equal hand mold burner bilaterally. Lungs clear x 5 lobes. IV Site on Arrival: 18 gauge in the right forearm. IV Fluids: 0.9% NaCl at KVO. 0 mL infused prior to medical laboratory technologist. Pre Procedural Pulses: bilateral dorsalis pedis was 3+. Pre Procedural Pulses: bilateral radial was 3+. Oxygen started at 2liters/min via nasal canula. right groin was prepped with chloroprep then draped in the usual sterile fashion. right radial was prepped with chloroprep then draped in the usual sterile fashion. Physician notified. Baseline sample Acquired. HR: 90 BPM. Physician arrived. [facility] Clinical Fraility Score: 4: Vulnerable. [facility] Indications: Worsening Angina and abnormal stress test. Chest Pain Symptom Assessment: Typical Angina Symptoms. Physician scrubbed in. Immediate Pre-Procedure Time Out. Correct Patient: Yes; Correct Procedure: Yes; Correct Site: Yes; Correct Patient Position: Yes; Correct Supplies: Yes; Dried Flammable Prep: Yes; Blood Products Available: N/A;. Lidocaine 1% infiltrated to the right radial. Venous access obtained. A 6 kenyan TIG catheter in over wire. EDP Sample taken: LV 120/-6,-7; HR: 72 BPM; SpO2: 97%. LV gram performed in BUENROSTRO @ 12 mL/second for a total of 25 mL. EDP Sample taken: LV 141/2,14; HR: 89 BPM; SpO2: 95%. Pullback taken: LV 139/2,12; AO 134/69(93); Mean: 10mmHg, Peak to Peak: 5mmHg, SEP: 20sec/min; HR: 85 BPM; SpO2: 97%. Multiple views taken of right coronary artery. Catheter redirected to the LCA. Multiple views taken of left coronary artery. Catheter out over wire. A TR Band was successful obtaining hemostatsis at the Right Radial artery insertion site. PERRLA. Strong, equal hand mold burner bilaterally. No VTE prophylaxis required. Medication's Wasted: Heparin = 1000 units. Medication's Wasted: Verapamil = 2.5 mg. Medication's Wasted: Nitro = 49.6 mg. Medication's Wasted: Other = versed 2 mg. Medication's Wasted: Other = fentanyl 50mcg. Total IV fluids: 40 mL. Complications: none. Estimated blood loss: 5mL-10mL. Responsiveness - Normal response to verbal stimuli; alert and oriented, PERRLA. Airway - Unaffected, no intervention required; spontaneous ventilation. Circulation: W/N/L, pulses unchanged. Nausea/Vomiting: No. Post-op diagnosis: non-obstructive CAD. Procedure completed. Patient transferred by wheelchair to ICU. Vital chart was stopped. Access Site Site: Right Radial artery Sheath Size: 6 Fr Hemostasis Method: TR Band Hemostasis Success: Successful Procedure Medications Start: 2:14 PM Stop: 2:14 PM Medication: Versed Amount: 1 mg Route: I.V. Start: 2:14 PM Stop: 2:14 PM Medication: Fentanyl Amount: 50 mcg Route: I.V. Start: 2:18 PM Stop: 2:18 PM Medication: Versed Amount: 1 mg Route: I.V. Start: 2:25 PM Stop: 2:25 PM Medication: Heparin Amount: 5000 units Route: I.V. Start: 2:25 PM Stop: 2:25 PM Medication: Nitrogylcerin Amount: 400 mcg Route: I.A. Start: 2:26 PM Stop: 2:26 PM Medication: Verapamil Amount: 2.5 mg Route: I.A. I, the attending physician, have reviewed and verified all procedure medications. Yes, all medications given per verbal order History/Risk Factors Hypertension: Yes Dyslipidemia: No Peripheral Arterial Disease (PAD): No Myocardial Infarction (TN): No Obesity: No Renal Disease: No Tobacco Use: Former Prior Interventions PCI: No CABG: No Valve Surgery: No Report Signatures Finalized by Dennys Vera MD on 04/30/2022 03:25 PM
--- NOTE | 2022-04-30 14:04 | PM.CONSULT ---
Providers/Reason For Consult Consulting Physician/Specialty*: Ravipudi/Cardiology Reason for Consult*: CP/USA, Abnormal Stress Test Requesting Physician: Dr. Allen Attending Physician: Jatin Allen MD Primary Care Provider: Grzegorz Sanchez MD History of Present Illness History of Present Illness Dennise Funes is a 67 year old female with a history of Sarcoma. She has been experiencing increasing chest discomfort radiating to her scapular region associated with diaphoresis and shortness of breath. EKG is LBBB. There has been no elevation of her cardiac biomarkers. Her stress nuclear was suggestive of inferior ischemia. Cardiology was consulted. Patient is of the midset she wants to get something done to help her feel better. Review of Systems Const: Reports: body aches and fatigue Eyes: Denies: change in vision ENMT: Denies: throat pain Card: Reports: chest pain Resp: Reports: dyspnea GI: Reports: abdominal pain and nausea : Denies: flank pain Musc: Reports: extremity pain Skin/Breast: Reports: rash Neuro: Denies: headache(s) Psych: Reports: anxiety Endo: Denies: polyuria Govind/Lymph: Denies: easy bruising All/Imm: Denies: urticaria Medications/Allergies Home Medications Medication Instructions Recorded Confirmed Last Taken Type albuterol sulfate 90 mcg/actuation 2 puff inhalation Q6H PRN 12/26/20 04/30/22 Unknown Rx aerosol inhaler (Ventolin HFA) Shortness Of Breath #8.5 grams gabapentin 600 mg tablet 600 mg PO TID #90 tabs 03/09/22 04/30/22 Unknown Rx morphine 100 mg tablet,extended 100 mg PO TID 30 days #90 tabs 03/09/22 04/30/22 Unknown Rx release oxycodone 30 mg tablet 30 mg PO QID PRN pain 30 days #120 04/23/22 04/30/22 Unknown Rx tabs aspirin 81 mg capsule 81 mg PO DAILY 30 days #30 caps 04/30/22 Unknown Rx atorvastatin 40 mg tablet 40 mg PO DAILY 30 days #30 tabs 04/30/22 Unknown Rx cyanocobalamin (vitamin B-12) 1,000 mcg PO DAILY 30 days #30 tabs 04/30/22 Unknown Rx 1,000 mcg tablet (Vitamin B-12) duloxetine 30 mg capsule,delayed 30 mg PO DAILY 04/30/22 04/30/22 Unknown History release (Cymbalta) furosemide 40 mg tablet (Lasix) 40 - 80 mg PO DAILY PRN Edema 04/30/22 04/30/22 Unknown History hydroxyzine pamoate 25 mg capsule 25 mg PO TID PRN Anxiety 04/30/22 04/30/22 Unknown History metoprolol tartrate 25 mg tablet 25 mg PO BID 04/30/22 04/30/22 Unknown History nitroglycerin 0.4 mg sublingual 0.4 mg sublingual Q5M PRN Chest 04/30/22 04/30/22 Unknown History tablet (Nitrostat) Pain omeprazole magnesium 20 mg 20 mg PO DAILY 04/30/22 04/30/22 Unknown History tablet,delayed release (Prilosec OTC) Allergies Allergy/AdvReac Type Severity Reaction Status Date / Time phenytoin [From Dilantin] Allergy Mild Rash Verified 04/30/22 10:55 Current Medications Generic Name Dose Route Start Last Admin Trade Name Freq PRN Reason Stop Dose Admin Cyanocobalamin 1,000 mcg 04/30/22 12:35 04/30/22 14:04 Cyanocobalamin 1,000 Mcg Tablet PO Not Given DAILY GILMA Duloxetine HCl 60 mg 04/30/22 09:00 04/30/22 09:49 Duloxetine 60 Mg Capsule PO 60 mg DAILY GILMA Administration Enoxaparin Sodium 40 mg 04/29/22 23:45 04/29/22 23:57 Enoxaparin 40 Mg/0.4 Ml Syringe SUBCUT 40 mg Q24H GILMA Administration Furosemide 20 mg 04/30/22 08:00 04/30/22 09:49 Furosemide 20 Mg Tablet PO 20 mg DAILY@0800 GILMA Administration Gabapentin 300 mg 04/30/22 09:00 04/30/22 09:49 Gabapentin 300 Mg Capsule PO 300 mg TID GILMA Administration Lisinopril 5 mg 04/30/22 09:00 04/30/22 09:49 Lisinopril 5 Mg Tablet PO 5 mg DAILY GILMA Administration Morphine Sulfate 15 mg 04/29/22 23:27 04/30/22 09:55 Morphine Ir 15 Mg Tablet PO 15 mg Q6H PRN Administration pAIN Ondansetron HCl 4 mg 04/29/22 23:27 04/29/22 23:57 Ondansetron 2 Mg/Ml Sdv 2 Ml IVP 4 mg Q6H PRN Administration NAUSEA AND VOMITING Ondansetron HCl 4 mg 04/30/22 06:10 04/30/22 08:37 Ondansetron 2 Mg/Ml Sdv 2 Ml IVP 4 mg Q2M PRN Administration NAUSEA Oxycodone HCl 30 mg 04/29/22 23:27 04/29/22 23:57 Oxycodone Ir 30 Mg Tablet PO 30 mg QID PRN Administration pain Pantoprazole Sodium 40 mg 04/29/22 23:27 04/30/22 09:[address] 40 Mg Tablet PO 40 mg BID GILMA Administration Senna/Docusate Sodium 1 tab 04/30/22 09:00 04/30/22 09:49 Sennosides-Docusate Tablet PO 1 tab DAILY GILMA Administration PFSH Acute PFSH: Medical History (Updated 04/30/22 @ 14:12 by Dennys Vera MD) Anxiety and depression Chronic narcotic use Chronic pain of right knee COPD (chronic obstructive pulmonary disease) Degenerative arthritis GERD (gastroesophageal reflux disease) Heart failure with preserved ejection fraction History of nonmelanoma skin cancer Hypertension Metabolic syndrome Sarcoma of right lower extremity Sleep apnea Surgical History H/O tubal ligation History of hernia repair History of partial hysterectomy History of surgery on lower extremity (02/14/20) 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 Bean History of total right hip arthroplasty Hx of appendectomy Family History Mother Family history of premature coronary artery disease Hypertension Brother Cancer Hypertension Sister Cancer Father Family history of premature coronary artery disease Hypertension Denies family history of Diabetes CAD (coronary artery disease) Clotting disorder Dementia Hyperlipidemia Psychiatric illness Chronic kidney disease (CKD) Suicide Anesthesia complication Bleeding disorder Lung disease Stroke Social History Smoking and tobacco status: former smoker (smoked x 40 years) Quit status (tobacco): has quit using tobacco Year quit tobacco: 2016 Former quit date comment: 2ppd x 36 years Second hand smoke exposure: No Alcohol intake: never Adopted: No Caregiver/support person: Yes Lives independently: Yes Marital status: Single Current occupational status: employed 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 History of recent travel: No Vitals/I&O/Wt Last Vital Signs Temp 98.1 F 04/30/22 11:00 Pulse 74 04/30/22 11:00 Resp 17 04/30/22 11:00 BP 139/74 04/30/22 11:00 Pulse Ox 92 04/30/22 13:28 O2 Del Method 04/30/22 08:00 O2 Flow Rate 2 04/30/22 13:28 Weight last 48 hrs Weight 187 lb 9.6 oz Weight 175 lb Physical Exam Narrative: Morbidly obese female Currently complaining of nausea S1, S2 No audible stridor or wheezing currently on 2 L No acute respiratory distress Abdomen distended, nontender Lymphadenopathy minimal region Lower extremity edema Pleasant and cooperative Nonfocal neuro exam No acute sign of cellulitis Appropriate mood and affect Data 04/30/22 03:01 04/30/22 03:01 A&P Assessment and plan (1) Chest pain: (2) Unstable angina: (3) Abnormal result of other cardiovascular function study: Plan Patient is agreeable with recommendation to proceed with a diagnostic cardiac cath through the right radial approach. Especially in the setting of her known history of sarcoma she accepts the periprocedural 1 to 3% risk of bleeding infection stroke heart attack renal failure need for emergent surgery and . If percutaneous intervention is warranted she is consented to proceed and is acceptable of the 1-3 minimum month commitment to dual antiplatelet therapy. She also accepts the potential long-term risk for restenosis and need for repeat cardiac procedures as result based on results we will make further recommendations. Patient is also aware that cardiothoracic surgery and nephrology and vascular surgery backup are in [facility] and [facility]. Coding Level of Care Code Acute Transaction Coordinator for [facility] Diagnoses Chest pain R07.9 Unstable angina I20.0 Abnormal result of other cardiovascular function study R94.39
--- NOTE | 2022-04-30 15:06 | PC.NURSE ---
Patient arrived to ICU room 3 at 1450 from circus laborer. Right TR band with 15ml. Patient alert and oriented. 88% on room air O2 applied by Cath nurse, 91% at 3LNC. Resting in bed at this time, denies pain.
--- NOTE | 2022-04-30 15:59 | PM.PN ---
Subjective Subjective: Patient was seen this morning, she had not had any chest pain complaints, she is on 3 L, her CT angiogram was negative for pulmonary embolism, she underwent stress test that showed possible coronary artery ischemia in the RCA territory, cardiology was consulted she underwent a cardiac cath, her angiogram shows 40 to 50% lesion in the RCA, she was reexamined in the ICU, she is overflow to the CO she is on 3 L she does not use oxygen at home, complaining of shortness of breath, she is also a bit confused alert to person, to place, not to time, she is drowsy my plan is to continue to monitor for the next 24 hours, hopefully discharge her tomorrow once her mentation improves and hopefully if we can get her off oxygen, as she does not use oxygen at home, potentially fluid overload Vitals/I&O/Wt Last Vital Signs Temp 98.6 F 04/30/22 15:05 Pulse 79 04/30/22 15:05 Resp 20 H 04/30/22 15:05 BP 119/82 04/30/22 15:05 Pulse Ox 91 04/30/22 15:05 O2 Del Method 04/30/22 15:05 O2 Flow Rate 3 04/30/22 15:05 Weight last 48 hrs Weight 85.094 kg Weight 79.379 kg Physical Exam Const: COMMON NORMALS: no acute distress ORIENTATION/CONSCIOUSNESS: Yes awake, Yes oriented to person and Yes oriented to place; not oriented to time Resp: COMMON NORMALS: normal respiratory effort, No retractions, No use of accessory muscles and clear to auscultation bilaterally AUSCULTATION: clear to auscultation bilaterally Cardio: COMMON NORMALS: regular rate, regular rhythm, S1 normal heart sound present and S2 normal heart sound present RATE: regular rate RHYTHM: regular rhythm HEART SOUNDS: S1 normal heart sound present and S2 normal heart sound present GI: COMMON NORMALS: Normal to inspection, nondistended, normoactive bowel sounds present and non-tender Extremity: COMMON NORMALS: no pedal edema Neuro: SENSORIUM/ORIENTATION: Yes oriented to person, Yes oriented to place and No oriented to time Psych: COMMON NORMALS: mental status grossly normal Data 04/30/22 03:01 04/30/22 03:01 A&P Assessment and plan (1) Chest pain: (2) Sarcoma of right lower extremity: (3) Mass of right upper extremity: (4) Heart failure with preserved ejection fraction: (5) COPD (chronic obstructive pulmonary disease): Qualifiers: COPD type: unspecified COPD Qualified Code(s): J44.9 - Chronic obstructive pulmonary disease, unspecified (6) Radiation dermatitis: (7) Hypertension: Plan Angina -Nonobstructive CAD, RCA 40 to 50% aspirin, statin, beta-jeanne -Some of her pain could be musculoskeletal after her fall, x-rays were negative, but could could have bruising of her ribs -Encephalopathy possibly secondary to anesthesia effect, continue to monitor mentation closely, no focal neurologic deficits, no slurring of her words alert to person place, not to time can follow commands, but a bit drowsy -On 3 L complain shortness of breath, chest x-ray no focal pneumonia, CT angiogram that was done at [facility] was negative for pulm embolism we will do venous ultrasound continue to monitor here as inpatient, will diurese tomorrow as today is too soon as she is receive dye from her angiogram -Likely discharge tomorrow Attestations Medical Necessity Statement*: Patient requires hospitalization for angina Coding Level of Care Code Acute Stacker Operator for [facility] Diagnoses Chest pain R07.9 Sarcoma of right lower extremity C49.21 Mass of right upper extremity R22.31 Heart failure with preserved ejection fraction I50.30 COPD (chronic obstructive pulmonary disease) J44.9 COPD type: unspecified COPD Radiation dermatitis L58.9 Hypertension I10
--- NOTE | 2022-04-30 16:03 | USR_ITS ---
PROCEDURE INFORMATION: Exam: US Duplex Lower Extremity Veins, Bilateral Exam date and time: 04/30/2022 6:54 PM Age: 67 years old Clinical indication: Pain; Leg, lower; Bilateral; Additional info: Dvt TECHNIQUE: Imaging protocol: Real-time Duplex ultrasound of the bilateral extremities with 2-D caro scale, color Doppler flow and spectral waveform analysis with image documentation. Complete exam focused on the bilateral lower extremity veins. COMPARISON: US soft tissue/extremity [id number] 09/01/2021 6:57 AM FINDINGS: Right deep veins: Unremarkable. The common femoral, femoral, proximal profunda femoral, popliteal, posterior tibial and peroneal veins are patent without thrombus. Normal Doppler waveforms. Normal compressibility and/or augmentation response. Right superficial veins: Saphenofemoral junction is patent without thrombus. Left deep veins: Unremarkable. The common femoral, femoral, proximal profunda femoral, popliteal, posterior tibial and peroneal veins are patent without thrombus. Normal Doppler waveforms. Normal compressibility and/or augmentation response. Left superficial veins: Saphenofemoral junction is patent without thrombus. Soft tissues: Unremarkable. US/[place] [id number] IMPRESSION: No sonographic evidence of deep vein thrombosis.
[2022-04-30] MEDS: atorvastatin 40 mg Tablet PO (20:05)
[2022-04-30] MEDS: ipratropium-albuterol 3 mL Neb INHALATION (20:05)
[2022-04-30] MEDS: oxyCODONE IR 30 mg Tablet PO (20:05)
--- NOTE | 2022-04-30 22:12 | PC.NURSE ---
0 - Up to side of bed and walked around ICU with no oxygen. O2 saturation remains > or equal to 90%, no reports of shortness of breath. 2044 -- Patient resting in bed, O2 saturation 84% on room air. Placed back on 2L NC.
--- NOTE | 2022-04-30 23:27 | USCV_ITS ---
Dennise Funes Age: 67 Gender: F : 1955 Exam Date: 04/30/2022 00:58 Ordering Phys: Agustin Hernandez MD Technologist: JEREMY Exam Location: [facility] [place] Indication: chest pain today. BP: 145 / 63 HR: 68 Rhythm: Sinus Technical Quality: Technically Difficult Study MEASUREMENTS (Male / Female) Normal Values 2D ECHO LV Diastolic Diameter PLAX 2.8 cm 4.2 - 5.9 / 3.9 - 5.3 cm LV Systolic Diameter PLAX 1.9 cm IVS Diastolic Thickness 2.0 cm 0.6 - 1.0 / 0.6 - 0.9 cm IVS Systolic Thickness 2.0 cm LVPW Diastolic Thickness 1.8 cm 0.6 - 1.0 / 0.6 - 0.9 cm LVPW Systolic Thickness 2.0 cm LVOT Diameter 2.1 cm LV Ejection Fraction 2D Teich 63.9 % LV Ejection Fraction MOD 2C 63.2 % LV Ejection Fraction 2C AL 63.8 % LA Diameter 2.8 cm LA Width 3.1 cm LA Height 6.1 cm RA Width 4.4 cm RA Height 4.1 cm Aorta at Sinotubular Diameter 3.1 cm IVC Diameter 1.2 cm M-MODE Aortic Annulus Diameter 3.2 cm LA Ao Ratio MM 0.8 MV E Point Septal Separation 0.3 cm DOPPLER AV Peak Velocity 152.0 cm/s LVOT Peak Velocity 104.0 cm/s AV Area Cont Eq vti 2.5 cm squared AV Area Cont Eq pk 2.3 cm squared MV Area PHT 4.2 cm squared Mitral E to A Ratio 0.7 MV E' Velocity 34.0 cm/s Mitral E to MV E' Ratio 7.7 Mitral E to LV E' Lateral Ratio 5.8 Mitral E to LV E' Septal Ratio 11.4 TR Peak Velocity 217.0 cm/s TR Peak Gradient 18.8 mmHg TV Peak E Velocity 44.0 cm/s Right Atrial Pressure 5.0 mmHg Pulmonary Artery Systolic Pressu 23.8 mmHg PV Peak Velocity 118.0 cm/s RV Acceleration Time 0.1 s RV Ejection Time 0.4 s RV AcT/ET 0.2 FINDINGS Left Ventricle Normal left ventricular size and systolic function, EF 60 %. , with no regional wall motion abnormalities. Mild left ventricular hypertrophy.Grade I/IV diastolic dysfunction (abnormal relaxation filling pattern), normal to mildly elevated filling pressures. Right Ventricle The right ventricle is normal in size and function. Right Atrium The right atrium is normal in size. Left Atrium The left atrium is normal in size. Mitral Valve Structurally normal mitral valve without significant stenosis or prolapse. There is no mitral regurgitation. Aortic Valve Structurally normal aortic valve without significant sclerosis or stenosis. There is no aortic regurgitation. Tricuspid Valve Structurally normal tricuspid valve without significant stenosis or regurgitation. Trace TR present. Pulmonary artery systolic pressure is normal. Unable to assess RVSP. Pulmonic Valve Structurally normal pulmonic valve without significant stenosis. There is no pulmonic regurgitation. Pericardium Normal pericardium without effusion. Aorta Normal ascending aorta dimension. IVC The inferior vena cava appears normal. CONCLUSIONS Normal left ventricular size and systolic function, EF 60 %. , with no regional wall motion abnormalities. Mild left ventricular hypertrophy.Grade I/IV diastolic dysfunction (abnormal relaxation filling pattern), normal to mildly elevated filling pressures. Dennys Vera MD (Electronically Signed) Final Date: 30 April 2022 13:41 S
--- NOTE | 2022-04-30 23:27 | NMCV_ITS ---
NM ines perf SPECT r/s* [id number] Dennise Funes Age: 67 Gender: F : 1955 Exam Date: 04/30/2022 06:34 Ordering Phys: Agustin Hernandez MD Technologist: TANIA Galvan Exam Location: [facility] Indications: CHEST PAIN STRESS TEST Please see separate stress test report in [facility] for full findings IMAGE PROTOCOL Rest/Stress 1 Lexiscan Day Radiopharmaceutical Dose (mCi) Administration Site Administered by Rest: Tc-99m 10.7 IV TANIA Roa Sestamibi Stress:Tc-99m 32.9 IV TANIA Roa Sestamibi Rest: 30-Apr-2022 60 Discovery 630 Stress: 30-Apr-2022 30 Discovery 630 0.4mg Lexiscan. Supine position only as patient was unable to lay prone. (Recent fall and injury to left anterior chest/ribs.) SPECT RESULTS Technical Quality: Excellent Raw Data Analysis: Sub diaphragmatic attenuation artifact Image Corrections: Summed Stress Score: 5 Summed Rest Score: 2 Summed Difference Score: 3 PERFUSION FINDINGS Small sized perfusion abnormality of mild severity of mid to apical inferior and apical septal lopez on stress images. FUNCTIONAL RESULTS (calculated via Gated SPECT) Stress Image LV EF (%): 69 Stress EDV (mL):84 TID: 0.76 Stress ESV (mL):26 FUNCTIONAL FINDINGS: The left ventricle is normal in size. Transient Ischemia Dilatation of 0.76. The left ventricular ejection fraction is normal with a value of 69%. There is normal left ventricular wall thickening. Normal end-diastolic end-systolic volumes. IMPRESSIONS 1. Small sized perfusion abnormality of mild severity of mid to apical inferior and apical septal lopez. 2. This may represent small area of ischemia in right coronary artery territory. However in absence of prone imaging and no regional wall motion abnormality attenuation artifact cannot be completely ruled out. 3. Overall left ventricular systolic function is normal without regional wall motion abnormalities, LVEF=69%. 4. EKG portion of the study will be reported separately. Ruthann Mccullough MD (Electronically Signed) Final Date: 30 April 2022 12:40 S
[2022-04-30] MEDS: enoxaparin 40 mg/0.4 mL Syringe SUBCUT (23:57)
[2022-05-01] VITALS (18 sets, daily range): BP systolic 101–164; BP diastolic 41–93; PULSE 68–88; RESP 14–23; TEMP 36.8–37.3; O2SAT 89–98
[2022-05-01] MEDS: morphine IR 15 mg Tablet PO ×2 (00:44→10:25)
--- NOTE | 2022-05-01 01:01 | PC.NURSE ---
Patient has not voided since arriving to ICU form cath lab nurse. Scanned bladder, noted to have approx 600ml urine. Patient attempted to void and was unable to. Patient states I have been having this problem at home and it sometimes takes me 3 or 4 times to be able to go . Patient returned to bed and instructed her to call if she wants to attempt to void again.
[2022-05-01] MEDS: FUROsemide 20 mg Tablet PO (07:37)
[2022-05-01 08:35] LABS: Blood Urea Nitrogen 11 mg/dL (8-23); Calcium 8.4 mg/dL (8.5-10.5); Carbon Dioxide 27 mmol/L (22-29); Chloride 104 mmol/L (98-107); Glomerular Filtration Rate 123.4 mL/min (90-130); Glucose 109 mg/dL (65-115); Osmolality Calculated 288 mOsm/kg (285-295); Sodium 139 mmol/L (136-145)
[2022-05-01] MEDS: gabapentin 300 mg Capsule PO (08:51)
[2022-05-01] MEDS: aspirin 81 mg EC Tablet PO (08:51)
[2022-05-01] MEDS: FUROsemide 10 mg/mL SDV 4mL 40 MG IVP (08:51)
[2022-05-01] MEDS: sennosides-docusate Tablet 1 TAB PO (08:51)
[2022-05-01] MEDS: cyanocobalamin 1,000 mcg Tablet 1000 MCG PO (08:51)
[2022-05-01] MEDS: lisinopril 5 mg Tablet PO (08:52)
[2022-05-01] MEDS: duloxetine 60 mg Capsule PO (08:52)
[2022-05-01] MEDS: pantoprazole DR 40 mg Tablet PO (08:52)
[2022-05-01] MEDS: oxyCODONE IR 30 mg Tablet PO (08:53)
[2022-05-01 09:16] LABS: Anion Gap 11.9 (5-19); Potassium 3.9 mmol/L (3.5-5.1)
--- NOTE | 2022-05-01 09:36 | XRR_ITS ---
PROCEDURE INFORMATION: Exam: XR Chest Exam date and time: 05/01/2022 9:45 AM Age: 67 years old Clinical indication: Shortness of breath; Patient HX: SOB TECHNIQUE: Imaging protocol: Radiologic exam of the chest. Views: 1 view. COMPARISON: CR (CHEST, ) 04/29/2022 8:40 PM FINDINGS: Lungs: Unremarkable. No consolidation. Pleural spaces: Unremarkable. No pleural effusion. No pneumothorax. Heart/Mediastinum: Unremarkable. No cardiomegaly. Bones/joints: Unremarkable for age. XR/XR chest 1V portable [id number] IMPRESSION: Negative chest exam.
[2022-05-01 10:21] LABS: ABG PCO2 51.4 mmHg (35-45); ABG PH Result 7.41 (7.35-7.45); Arterial Blood Gas Hematocrit 39.1 % (37-47); Base Excess ABG 6.7 mmol/L (-2.0-2.0); Blood Gas Allen Test Pos; Blood Gas Sample Type Arterial; HCO3 ABG 32.7 mmol/L (22-26); PO2 ABG 64.5 mmHg (80.0-100.0)
[2022-05-01 10:22] LABS: Blood Gas Operator Identificat MONRO; Blood Gas Sample Site Radial, left; Oxygen Device ROOM AIR
--- NOTE | 2022-05-01 10:25 | CTR_ITS ---
PROCEDURE INFORMATION: Exam: CTA Chest With Contrast Exam date and time: 05/01/2022 11:32 AM Age: 67 years old Clinical indication: Shortness of breath; Additional info: SOB TECHNIQUE: Imaging protocol: Computed tomographic angiography of the chest with contrast. 3D rendering (Not supervised by radiologist): MIP and/or 3D reconstructed images were created by the technologist. Radiation optimization: All CT scans at this facility use at least one of these dose optimization techniques: automated exposure control; mA and/or kV adjustment per patient size (includes targeted exams where dose is matched to clinical indication); or iterative reconstruction. Contrast material: OMNI 350; Contrast volume: 75 ml; Contrast route: INTRAVENOUS (IV); COMPARISON: CT angio chest [id number] 04/29/2022 11:10 AM RADIATION DOSE METRICS: Total DLP (mGy-cm): 378.24 FINDINGS: Pulmonary arteries: Pulmonary vasculature is adequately opacified without filling defects or other evidence of acute pulmonary embolism. Aorta: Unremarkable. No aortic aneurysm. No aortic dissection. Lungs: 1.7 cm semi solid nodule left upper lobe, stable, indeterminate. Bandlike area of subsegmental atelectasis anteriorly left mid lung zone, stable. Mild upper lobe emphysematous changes, stable. Pleural spaces: Unremarkable. No pneumothorax. No pleural effusion. Heart: Heart is not enlarged. No significant coronary artery calcifications detected. No significant pericardial effusion. Lymph nodes: Multiple small mediastinal and hilar lymph nodes, stable. Adrenal glands: Bilateral low attenuating adrenal lesions largest of which measures 3.5 cm, stable likely representing benign adenomas. Bones/joints: Unremarkable. No acute fracture. Soft tissues: Unremarkable. CT/CT angio chest PE protcl [id number] IMPRESSION: 1. Negative CT angiogram of the chest. No evidence of acute pulmonary embolism. 2. 1.7 cm semi solid nodule left upper lobe, stable, indeterminate. Continued follow-up advised. 3. Stable bandlike area of subsegmental atelectasis left mid lung zone. 4. Additional chronic findings as above.
[2022-05-01 10:46] LABS: Basophils % 0.5 %; Hematocrit 40.9 % (37.0-47.0); Lymphocytes % 24.6 %; Mean Corpuscular HGB Conc 31.8 g/dL (30.0-36.0); Mean Corpuscular Hemoglobin 29.4 pg (28.0-34.0); Mean Corpuscular Volume 92.5 fl (81-99); Mean Platelet Volume 9.4 fL (7.4-10.4); Monocytes # 0.2 10^3/uL (0.2-0.9); Monocytes % 6.1 %; Neutrophils # 2.66 10^3/uL (1.8-7.7); Neutrophils % 67.3 %; Nucleated Red Blood Cells % 0 %; Platelet Count 249 10^3/cmm (130-400); Red Blood Count 4.42 10^6/uL (4.1-5.3); Red Cell Distribution Width 14.3 % (12.1-15.1)
[2022-05-01 10:58] LABS: D Dimer 1.57 ug/mIFEU (0-0.59)
[2022-05-01 11:08] LABS: C Reactive Protein 3.4 mg/L (0.0-4.9)
[2022-05-01 11:14] LABS: Procalcitonin 0.05 ng/mL (0-0.5)
[2022-05-01 11:15] LABS: NT Pro B Type Natriuretic Pept 140 pg/mL (0-125)
[2022-05-01] MEDS: iohexol 350 mg/mL 500 mL Btl (per mL) IV (11:49)
--- NOTE | 2022-05-01 12:52 | PM.DCS ---
Discharge Providers Date of Admission: 04/30/22 15:10 Date of Discharge: May 01, 2022 Attending Provider at Admission: Agustin Hernandez MD Attending Provider at Discharge: Jatin Allen MD Primary Care Provider: Grzegorz Sanchez MD Diagnoses at Discharge Discharge Diagnosis (1) Chest pain: Status: Acute (2) Sarcoma of right lower extremity: Status: Acute (3) Mass of right upper extremity: Status: Acute (4) Heart failure with preserved ejection fraction: Status: Acute (5) COPD (chronic obstructive pulmonary disease): Status: Acute Qualifiers: COPD type: unspecified COPD Qualified Code(s): J44.9 - Chronic obstructive pulmonary disease, unspecified (6) Radiation dermatitis: Status: Acute (7) Hypertension: Status: Chronic Reason for Visit Reason for Visit: CHEST PAIN Hospital Course Hospital Course Dennise Funes is a 67 year old female osteosarcoma status post wide excision, postsurgery radiation, was in remission until lately started noticing swollen lymph nodes, recent CT chest abdomen pelvis showed sarcoma with metastatic lesions, 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 This is a 67-year-old female who presented to [facility] for chest pain -No significant EKG changes does have a chronic left bundle branch block, no significant delta troponin -Stress testing 1. Small sized perfusion abnormality of mild severity of mid to apical inferior ?and apical septal lopez. ?2. This may represent small area of ischemia in right coronary artery ?territory.? However in absence of prone imaging and no regional wall motion ?abnormality attenuation artifact cannot be completely ruled out. ?3. Overall left ventricular systolic function is normal without regional wall ?motion abnormalities, LVEF=69%. ?4. EKG portion of the study will be reported separately. -Due to positive stress test she underwent coronary angiography 1. Normal ejection fraction visually estimated at 55%. ? 2. Left main 10 to 20%. ? 3. LAD 10 to 20%. ? 4. Circumflex proximal 30%. ? 5. RCA large dominant vessel with mid 40 to 50%. -Discharged on aspirin, statin with close follow-up with cardiology as outpatient She is found to have B12 deficiency, discharged on vitamin B12 Patient was found to require 2 L oxygen during hospitalization, I suspect likely secondary to fluid overload and some degree of sleep apnea -CT angiogram was negative for pulmonary embolism -No focal pneumonia -Received diuresis monitor for 24 hours, diuresed over 3 L -Still requiring 2 L during discharge, discharged Lasix for 4 days -Follow-up with primary care provider for consideration of sleep study Physical Exam Const: COMMON NORMALS: no acute distress and patient oriented x3 Resp: COMMON NORMALS: normal respiratory effort, No retractions, No use of accessory muscles and clear to auscultation bilaterally AUSCULTATION: clear to auscultation bilaterally Cardio: COMMON NORMALS: regular rate, regular rhythm, S1 normal heart sound present and S2 normal heart sound present RATE: regular rate RHYTHM: regular rhythm HEART SOUNDS: S1 normal heart sound present and S2 normal heart sound present GI: COMMON NORMALS: Normal to inspection, nondistended, normoactive bowel sounds present and non-tender Extremity: COMMON NORMALS: no pedal edema Neuro: COMMON NORMALS: patient oriented x3 Psych: COMMON NORMALS: mental status grossly normal Urinary Catheter Management: Stewart: Cath Placed During This Visit: yes, but has since been removed by the nurse Reason for Continuing Indwelling Catheter: Decision to DC Catheter Urinary Catheter Date of Insertion: 05/01/22 Urinary Catheter Time of Insertion: 04:00 Date Urinary Catheter Removed: 05/01/22 Time Urinary Catheter Discontinued: 09:00 Discharge Data Studies Completed and Pending Completed Studies During Hospitalization Category Date Time Status CT angio chest PE protcl [id number] Routine Cat Scan 05/01/22 10:25 Completed CITY AUDITOR request for service Routine Exams 04/30/22 13:57 Completed Sestamibi Stress Test Request Routine Exams 04/30/22 06:11 Completed XR cervical spine 3V* [id number] Routine Exams 04/30/22 09:39 Completed XR chest 1V portable [id number] Routine Exams 05/01/22 09:36 Completed XR chest 1V portable [id number] Stat Exams 04/29/22 20:26 Completed XR ribs LT 2V* [id number] Routine Exams 04/30/22 09:39 Completed XR shoulder LT min 2V* [id number] Routine Exams 04/30/22 09:39 Completed NM ines perf SPECT r/s* [id number] Routine Nuc Med 04/30/22 23:27 [place] [id number] Routine Ultrasound 04/30/22 16:03 Completed Pending at discharge Category Date Time Status Sestamibi Stress Test Request Routine Exams 04/29/22 23:27 Stop Req CV. echo complete* [id number] Routine Ultrasound 04/30/22 23:27 Taken Radiology Impressions Cervical Spine X-Ray 04/30/22 09:39 IMPRESSION: No acute abnormality. Ribs X-Ray 04/30/22 09:39 IMPRESSION: No acute findings. Shoulder X-Ray 04/30/22 09:39 IMPRESSION: No acute findings. Venous Duplex 04/30/22 16:03 IMPRESSION: No sonographic evidence of deep vein thrombosis. Chest X-Ray 05/01/22 09:36 IMPRESSION: Negative chest exam. Chest CTA 05/01/22 10:25 IMPRESSION: 1. Negative CT angiogram of the chest. No evidence of acute pulmonary embolism. 2. 1.7 cm semi solid nodule left upper lobe, stable, indeterminate. Continued follow-up advised. 3. Stable bandlike area of subsegmental atelectasis left mid lung zone. 4. Additional chronic findings as above. Laboratory Results WBC 4.0 10^3/uL (4.0-10.0) 05/01/22 10:25 RBC 4.42 10^6/uL (4.1-5.3) 05/01/22 10:25 Hgb 13.0 g/dL (11.5-15.3) 05/01/22 10:25 Hct 40.9 % (37.0-47.0) 05/01/22 10:25 MCV 92.5 fl (81-99) 05/01/22 10:25 MCH 29.4 pg (28.0-34.0) 05/01/22 10:25 MCHC 31.8 g/dL (30.0-36.0) 05/01/22 10:25 RDW 14.3 % (12.1-15.1) 05/01/22 10:25 Plt Count 249 10^3/cmm (130-400) 05/01/22 10:25 MPV 9.4 fL (7.4-10.4) 05/01/22 10:25 Neut % (Auto) 67.3 % 05/01/22 10:25 Lymph % (Auto) 24.6 % 05/01/22 10:25 [place] % (Auto) 6.1 % 05/01/22 10:25 Eos % (Auto) 1.0 % 05/01/22 10:25 Baso % (Auto) 0.5 % 05/01/22 10:25 Neut # (Auto) 2.66 10^3/uL (1.8-7.7) 05/01/22 10:25 Lymph # (Auto) 1.0 10^3/uL (0.8-4.8) 05/01/22 10:25 [place] # (Auto) 0.2 10^3/uL (0.2-0.9) 05/01/22 10:25 Eos # (Auto) 0.0 10^3/uL (0.0-0.8) 05/01/22 10:25 Baso # (Auto) 0.0 10^3/uL (0.0-0.1) 05/01/22 10:25 Nucleated RBC % (auto) 0 % 05/01/22 10:25 Nucleated RBCs # 0.0 /100WBC 05/01/22 10:25 D-Dimer 1.57 ug/mIFEU (0-0.59) H 05/01/22 10:25 Specimen Type Arterial 05/01/22 10:10 Sample Site Radial, left 05/01/22 10:10 ABG pH 7.41 (7.35-7.45) 05/01/22 10:10 ABG pCO2 51.4 mmHg (35-45) H 05/01/22 10:10 ABG pO2 64.5 mmHg (80.0-100.0) L 05/01/22 10:10 ABG HCO3 32.7 mmol/L (22-26) H 05/01/22 10:10 ABG Base Excess 6.7 mmol/L (-2.0-2.0) H 05/01/22 10:10 Dexter Test Pos 05/01/22 10:10 Hematocrit 39.1 % (37-47) 05/01/22 10:10 O2 Delivery Device Room air 05/01/22 10:10 FiO2 21.0 % 05/01/22 10:10 Line Manager ID Monro 05/01/22 10:10 Sodium 139 mmol/L (136-145) 05/01/22 08:05 Potassium 3.9 mmol/L (3.5-5.1) 05/01/22 08:05 Chloride 104 mmol/L (98-107) 05/01/22 08:05 Carbon Dioxide 27 mmol/L (22-29) 05/01/22 08:05 Anion Gap 11.9 (5-19) 05/01/22 08:05 BUN 11 mg/dL (8-23) 05/01/22 08:05 Creatinine 0.5 mg/dL (0.5-0.9) 05/01/22 08:05 GFR Calculation 123.4 mL/min (90-130) 05/01/22 08:05 Glucose 109 mg/dL (65-115) 05/01/22 08:05 Calculated Osmolality 288 mOsm/kg (285-295) 05/01/22 08:05 Calcium 8.4 mg/dL (8.5-10.5) L 05/01/22 08:05 Phosphorus 4.5 mg/dL (2.5-4.5) 04/30/22 03:01 Magnesium 2.2 mg/dL (1.7-2.3) 04/30/22 03:01 Total Bilirubin 0.4 mg/dL (0.15-1.2) 04/29/22 21:05 AST 26 U/L (0-32) 04/29/22 21:05 ALT 28 U/L (0-33) 04/29/22 21:05 Alkaline Phosphatase 145 U/L (35-105) H 04/29/22 21:05 Troponin T Baseline 9 ng/L (0-10) 04/29/22 21:05 Troponin T 120 Minute 10.50 ng/L (0-10) H 04/29/22 22:58 Delta Troponin T 1.50 ABS# (0-10) 04/29/22 22:58 Troponin T Hi Sens 6Hr 9.96 ng/L (0-10) 04/30/22 03:01 Troponin T Hi Sens 6Hr Delta 0.96 ng/L (0-12) 04/30/22 03:01 C-Reactive Protein 3.4 mg/L (0.0-4.9) 05/01/22 10:25 NT-Pro-B Natriuret Pep 140 pg/mL (0-125) H 05/01/22 10:25 Total Protein 7.0 g/dL (6.6-8.7) 04/29/22 21:05 Albumin 4.5 g/dL (3.5-5.2) 04/29/22 21:05 Globulin 2.5 g/dL (1.3-4.6) 04/29/22 21:05 Vitamin B12 205 pg/mL (232-1245) L 04/29/22 22:55 Procalcitonin 0.05 ng/mL (0-0.5) 05/01/22 10:25 Vitals Last Vital Signs Temp 99.2 F 05/01/22 10:00 Pulse 80 05/01/22 10:00 Resp 21 H 05/01/22 10:00 BP 158/71 05/01/22 10:00 Pulse Ox 91 05/01/22 10:00 O2 Del Method 05/01/22 09:00 O2 Flow Rate 2 05/01/22 09:00 Discharge Plan Discharge Patient Disposition: Home Condition: Stable Prescriptions: New Vitamin B-12 1,000 mcg Tablet 1,000 mcg PO DAILY 30 Days Qty: 30 0RF aspirin 81 mg capsule 81 mg PO DAILY 30 Days Qty: 30 0RF atorvastatin 40 mg tablet 40 mg PO DAILY 30 Days Qty: 30 0RF Lasix 40 mg tablet 20 mg PO DAILY 4 Days Qty: 2 0RF Rx Instructions: PLEASE START 05/03/2022 Continued albuterol sulfate [Ventolin HFA] 90 mcg/actuation HFA aerosol inhaler 2 puff INHALATION Q6H PRN (Reason: Shortness Of Breath) Qty: 8.5 0RF gabapentin 600 mg tablet 600 mg PO TID Qty: 90 3RF morphine 100 mg tablet extended release 100 mg PO TID 30 Days Qty: 90 0RF oxycodone 30 mg tablet 30 mg PO QID PRN (Reason: pain) 30 Days Qty: 120 0RF Nitrostat 0.4 mg Tablet, Sublingual 0.4 mg SUBLINGUAL Q5M PRN (Reason: Chest Pain) Rx Instructions: do not exceed 3 doses per episode hydroxyzine pamoate 25 mg capsule 25 mg PO TID PRN (Reason: Anxiety) Prilosec OTC 20 mg Tablet,Delayed Release (Dr/Ec) 20 mg PO DAILY metoprolol tartrate 25 mg tablet 25 mg PO BID Cymbalta 30 mg Capsule,Delayed Release(Dr/Ec) 30 mg PO DAILY Held Lasix 40 mg Tablet 40 - 80 mg PO DAILY PRN (Reason: Edema) Hold Instructions: Resume on 05/07/22. HOLD UNTIL LASIX 20MG IS COMPLETED Discharge Orders: Discharge Order (Routine); Ordered 04/30/22 Ordered By: Jatin Allen Other Ambulatory Orders: DME: Oxygen (Order) Location: None Selected Ordered By: Jatin Allen Referrals: Grzegorz aSnchez MD [Primary Care Provider] - 1-3 days Iftikhar Bradley MD [Physician] - 4-7 days Discharge Diet: Cardiac Discharge Activity: Resume usual activity Patient Instructions: Aspirin (By mouth), Atorvastatin (By mouth), Vitamin B-12 (By mouth), Heart Failure (DC), COPD (Chronic Obstructive Pulmonary Disease) (DC), Opioid Safety Activity Restrictions/Additional Instructions: - If you develop any recurrent chest pain please go to emergency room -For your fluid overload please start Lasix on 05/03/2022, I will give your kidneys a break tomorrow, 20 once a day for 4 days -Please follow-up with cardiology in 1 week. Please call Tuesday to schedule follow-up [phone]. -Follow-up with your primary care provider to slowly wean her oxygen -Discussed with primary care provider about sleep study Discharge Attestations Time Spent in Discharge Care*: less than 30 min Quality Metrics Clinical Quality Measures [ No reported AMI, CVA or VTE this stay] Coding Level of Care Code Acute Chg FW DC note Diagnoses Chest pain R07.9 Sarcoma of right lower extremity C49.21 Mass of right upper extremity R22.31 Heart failure with preserved ejection fraction I50.30 COPD (chronic obstructive pulmonary disease) J44.9 COPD type: unspecified COPD Radiation dermatitis L58.9 Hypertension I10
--- NOTE | 2022-05-01 13:54 | PC.NURSE ---
Extensive patient education provided at bedside with family member present. Discharge paperwork reviewed with instructions highlighted. Follow up appointments reviewed. Medications reviewed and sent to [facility] pharmacy. Patient had no questions at the time of discharge.
== END 2022-05-01 13:38 | disposition home or self-care (01) | DRG 287 ==
LOC: ER 21:54 → MEDSURG 22:48 → ICU 04-30 14:54
PROVIDERS: Internal Medicine Cardiovascular Disease; Admitting Provider Internal Medicine; Emergency Provider Emergency Medicine; PCP Internal Medicine; Visit Provider Family Medicine
PROC: 4A023N7 Measurement of Cardiac Sampling and Pressure, Left Heart, Percutaneous Approach (ICD-10-PCS; principal; 2022-04-30 14:30)
DX: R07.9 Chest pain, unspecified (principal); I50.32 Chronic diastolic (congestive) heart failure; C76.52 Malignant neoplasm of left lower limb; I11.0 Hypertensive heart disease with heart failure; J44.9 Chronic obstructive pulmonary disease, unspecified; L59.8 Other specified disorders of the skin and subcutaneous tissue related to radiation; I44.7 Left bundle-branch block, unspecified; E53.8 Deficiency of other specified B group vitamins; G47.30 Sleep apnea, unspecified; Z79.51 Long term (current) use of inhaled steroids; Z79.891 Long term (current) use of opiate analgesic; F41.8 Other specified anxiety disorders; Z85.828 Personal history of other malignant neoplasm of skin; W19.XXXA Unspecified fall, initial encounter; I25.10 Atherosclerotic heart disease of native coronary artery without angina pectoris; R91.8 Other nonspecific abnormal finding of lung field; Z87.891 Personal history of nicotine dependence; Z96.643 Presence of artificial hip joint, bilateral
CPT/HCPCS: 36415; 36600; 51702; 71045; 71100; 71275; 72040; 73030; 78452; 80048; 80053; 82607; 82803; 83735; 83880; 84100; 84145; 84484; 85025; 85378; 86140; 93005; 93017; 93306; 93458; 93970; 94640; 94760; 96372; 96374; 96375; 99152; 99153; 99285; A9500; C1769; C1887; C1894; G0378; J0360; J1644; J1650; J1940; J2250; J2270; J2405; J2785; J3010; J3490; J7030; Q9967

== ENCOUNTER → 2022-05-05 16:36 | Outpatient (BNVA) | payer MEDICARE, SELFPAY | PROVIDERS: PCP Family Medicine; Visit Provider Internal Medicine | DX: I50.30 Unspecified diastolic (congestive) heart failure (principal); C49.21 Malignant neoplasm of connective and soft tissue of right lower limb, including hip; F41.9 Anxiety disorder, unspecified; F32.9 Major depressive disorder, single episode, unspecified; G47.33 Obstructive sleep apnea (adult) (pediatric); Z99.89 Dependence on other enabling machines and devices; I10 Essential (primary) hypertension | CPT/HCPCS: 80048; 83880; 99214 ==

== ENCOUNTER 2022-05-13 11:31 | Observation (INO) | payer MEDICARE, SELFPAY ==
[2022-05-13] VITALS (57 sets, daily range): BP systolic 93–137; BP diastolic 49–78; PULSE 58–89; RESP 12–35; TEMP 36.6–37.2; O2SAT 86–98; BMI 31.7
--- NOTE | 2022-05-13 11:48 | XR_ITS ---
WS: [id number] Portable AP upright chest, 05/13/2022 Clinical Data: dyspnea/cough Comparison: Portable chest, 05/01/2022 Findings: No nodules, masses or effusions are seen. The heart is normal. The pulmonary vascularity is not increased. No pneumothorax is seen. There is diffuse patchy opacity throughout both lungs with m ore on the right than the left which could indicate diffuse pneumonia. The aortic arch and descending thoracic aorta show tortuosity. XR/XR chest 1V portable [id number] Impression: 1. Diffuse patchy pulmonary opacity which could represent diffuse pneumonia. 2. Atherosclerosis.
--- NOTE | 2022-05-13 11:48 | CT_ITS ---
WS: [id number] CT HEAD TECHNIQUE: Noncontrast CT of the head obtained from the skullbase to the vertex. CLINICAL INFORMATION: AMS//word salad COMPARISON: CT November 05, 2018 DLP: 1189.[address] scans at [facility] use at least one of these dose optimization techniques: automated e xposure control; mA and/or kV adjustment per patient size (includes targeted exams where dose is matc hed to clinical indication); or iterative reconstruction. FINDINGS: No evidence of intracranial hemorrhage or mass effect. Ventricular system and basal cisterns are sarmiento nt. Mild small vessel changes with mild parenchymal volume loss. No extra-axial fluid collections. No evidence of mass or mass effect. Vascular calcification Retention cyst LEFT maxillary sinus. Mild mucosal thickening in the ethmoid air cells. Mastoid air ce lls are well aerated. Normal posterior nasopharynx. CT/CT head wo con* [id number] IMPRESSION: 1. No evidence of intracranial hemorrhage or mass effect. 2. Mild small vessel changes. Mild parenchymal volume loss. 3. No acute intracranial findings.
--- NOTE | 2022-05-13 12:01 | ECG_ITS ---
[facility] Test Date: 2022-05-13 Pat Name: Dennise Funes Department: Room: Gender: Female Damper Fitter: : 1955 Requested By: Garth Turner Order Number: [id number] Evgeny MD: Iftikhar Bradley M.D. Measurements Intervals Greenback Rate: 87 P: 55 VA: 176 QRS: 7 QRSD: 157 T: 94 QT: 407 QTc: 490 Interpretive Statements SINUS RHYTHM LEFT BUNDLE BRANCH BLOCK [120+ ms QRS DURATION, 80+ ms Q/S IN V1/V2, 85+ ms R IN I/aVL/V5/V6] Compared to ECG 04/30/2022 02:34:30 No significant changes Electronically Signed On 05-13-2022 21:11:34 TREATING ENGINEER by Iftikhar Bradley M.D. [email or web address]
--- NOTE | 2022-05-13 12:04 | ED_ITS ---
HPI - Altered Mental Status General: Chief Complaint: Altered Mental Status Stated Complaint: stroke like symptoms Time Seen by Provider: 05/13/22 11:47 PFSH ED PFSH: Medical History Anxiety and depression Chronic narcotic use Chronic pain of right knee COPD (chronic obstructive pulmonary disease) Degenerative arthritis GERD (gastroesophageal reflux disease) Heart failure with preserved ejection fraction History of nonmelanoma skin cancer Hypertension Metabolic syndrome Sarcoma of right lower extremity Sleep apnea Undifferentiated pleomorphic sarcoma Surgical History H/O tubal ligation History of hernia repair History of partial hysterectomy History of surgery on lower extremity (02/14/20) 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 Bean History of total right hip arthroplasty Hx of appendectomy Family History Mother Family history of premature coronary artery disease Hypertension Brother Cancer Hypertension Sister Cancer Father Family history of premature coronary artery disease Hypertension Denies family history of Diabetes CAD (coronary artery disease) Clotting disorder Dementia Hyperlipidemia Psychiatric illness Chronic kidney disease (CKD) Suicide Anesthesia complication Bleeding disorder Lung disease Stroke Social History Smoking and tobacco status: former smoker (smoked x 40 years) Quit status (tobacco): has quit using tobacco Year quit tobacco: 2016 Former quit date comment: 2ppd x 36 years Second hand smoke exposure: No Alcohol intake: never Adopted: No Caregiver/support person: Yes Lives independently: Yes Marital status: Single Current occupational status: employed 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 [employer] [place] History of recent travel: No Course Vital Signs: Vital signs: Vital Signs Temperature 98.3 F 05/13/22 11:40 Pulse Rate 66 05/13/22 17:35 Respiratory Rate 19 H 05/13/22 17:35 Blood Pressure 120/54 05/13/22 17:30 Pulse Oximetry 98 05/13/22 17:35 Oxygen Delivery Me thod 05/13/22 11:40 Oxygen Flow Rate 3 05/13/22 11:40 MDM - Altered Mental Status Lab Data 05/13/22 12:37 05/13/22 12:37 Radiology Impressions Chest X-Ray 05/13/22 11:48 Impression: 1. Diffuse patchy pulmonary opacity which could represent diffuse pneumonia. 2. Atherosclerosis. Head CT 05/13/22 11:48 IMPRESSION: 1. No evidence of intracranial hemorrhage or mass effect. 2. Mild small vessel changes. Mild parenchymal volume loss. 3. No acute intracranial findings. Laboratory Results WBC 11.0 10^3/uL (4.0-10.0) H 05/13/22 12:37 RBC 4.09 10^6/uL (4.1-5.3) L 05/13/22 12:37 Hgb 11.9 g/dL (11.5-15.3) 05/13/22 12:37 Hct 37.6 % (37.0-47.0) 05/13/22 12:37 MCV 91.9 fl (81-99) 05/13/22 12:37 MCH 29.1 pg (28.0-34.0) 05/13/22 12:37 MCHC 31.6 g/dL (30.0-36.0) 05/13/22 12:37 RDW 14.3 % (12.1-15.1) 05/13/22 12:37 Plt Count 240 10^3/cmm (130-400) 05/13/22 12:37 MPV 9.7 fL (7.4-10.4) 05/13/22 12:37 Neut % (Auto) 85.8 % 05/13/22 12:37 Lymph % (Auto) 6.9 % 05/13/22 12:37 [place] % (Auto) 6.4 % 05/13/22 12:37 Eos % (Auto) 0.1 % 05/13/22 12:37 Baso % (Auto) 0.3 % 05/13/22 12:37 Neut # (Auto) 9.46 10^3/uL (1.8-7.7) H 05/13/22 12:37 Lymph # (Auto) 0.8 10^3/uL (0.8-4.8) 05/13/22 12:37 [place] # (Auto) 0.7 10^3/uL (0.2-0.9) 05/13/22 12:37 Eos # (Auto) 0.0 10^3/uL (0.0-0.8) 05/13/22 12:37 Baso # (Auto) 0.0 10^3/uL (0.0-0.1) 05/13/22 12:37 Nucleated RBC % (auto) 0 % 05/13/22 12:37 Nucleated RBCs # 0.0 /100WBC 05/13/22 12:37 Specimen Type Arterial 05/13/22 11:58 Sample Site Radial, left 05/13/22 11:58 ABG pH 7.40 (7.35-7.45) 05/13/22 11:58 ABG pCO2 57.2 mmHg (35-45) H 05/13/22 11:58 ABG pO2 59.9 mmHg (80.0-100.0) L 05/13/22 11:58 ABG HCO3 35.2 mmol/L (22-26) H 05/13/22 11:58 ABG O2 Saturation 91.9 05/13/22 11:58 ABG Base Excess 8.6 mmol/L (-2.0-2.0) H 05/13/22 11:58 Dexter Test Pos 05/13/22 11:58 A-a O2 Gradient 2.6 mmHg (5-10) L 05/13/22 11:58 Hematocrit 36.0 % (37-47) L 05/13/22 11:58 Hgb O2 Saturation 89.8 % (95-100) L 05/13/22 11:58 Carboxyhemoglobin 1.3 %THgb (0.4-20.1) 05/13/22 11:58 Methemoglobin 1.0 % (0.4-1.5) 05/13/22 11:58 Total Hemoglobin 11.7 g/dL (12-16) L 05/13/22 11:58 Sodium 141.0 mmol/L (131-143) 05/13/22 11:58 Potassium 3.5 mmol/L (3.5-5.0) 05/13/22 11:58 Glucose 139.0 mg/dL (70-115) H 05/13/22 11:58 Ionized Calcium 1.1 mmol/L (1.1-1.4) 05/13/22 11:58 O2 Delivery Device Nc 05/13/22 11:58 O2 Liters/Min 3.0 % 05/13/22 11:58 Cryptography Teacher ID [place] 05/13/22 11:58 Sodium 137 mmol/L (136-145) 05/13/22 12:37 Potassium 3.7 mmol/L (3.5-5.1) 05/13/22 12:37 Chloride 97 mmol/L (98-107) L 05/13/22 12:37 Carbon Dioxide 32 mmol/L (22-29) H 05/13/22 12:37 Anion Gap 11.7 (5-19) 05/13/22 12:37 BUN 18 mg/dL (8-23) 05/13/22 12:37 Creatinine 0.8 mg/dL (0.5-0.9) 05/13/22 12:37 GFR Calculation 71.8 mL/min (90-130) L 05/13/22 12:37 Glucose 129 mg/dL (65-115) H 05/13/22 12:37 Calculated Osmolality 288 mOsm/kg (285-295) 05/13/22 12:37 Calcium 8.1 mg/dL (8.5-10.5) L 05/13/22 12:37 Total Bilirubin 0.5 mg/dL (0.15-1.2) 05/13/22 12:37 AST 21 U/L (0-32) 05/13/22 12:37 ALT 16 U/L (0-33) 05/13/22 12:37 Alkaline Phosphatase 143 U/L (35-105) H 05/13/22 12:37 Troponin T Baseline 19 ng/L (0-10) H 05/13/22 12:37 Troponin T 120 Minute 16.65 ng/L (0-10) H 05/13/22 14:50 Delta Troponin T -2.35 ABS# (0-10) L 05/13/22 14:50 Total Protein 6.5 g/dL (6.6-8.7) L 05/13/22 12:37 Albumin 3.7 g/dL (3.5-5.2) 05/13/22 12:37 Globulin 2.8 g/dL (1.3-4.6) 05/13/22 12:37 Urine Color Yellow (Yellow) 05/13/22 13:36 Urine Appearance Cloudy (CLEAR) A 05/13/22 13:36 Urine pH 5 (5-7) 05/13/22 13:36 Ur Specific [place] 1.015 (1.005-1.030) 05/13/22 13:36 Urine Protein Neg (Negative) 05/13/22 13:36 Urine Glucose (UA) Norm (Normal) 05/13/22 13:36 Urine Ketones Negative (Negative) 05/13/22 13:36 Urine Blood Neg (Negative) 05/13/22 13:36 Urine Nitrate Positive (Negative) H 05/13/22 13:36 Urine Bilirubin 1+ (Negative) H 05/13/22 13:36 Urine Urobilinogen Neg mg/dL (Negative) 05/13/22 13:36 Ur Leukocyte Esterase Trace (Negative) H 05/13/22 13:36 Urine RBC Rare /hpf (0-2) 05/13/22 13:36 Urine WBC 5-10 /hpf (0-5) H 05/13/22 13:36 Ur Squamous Epith Cells 5-10 /hpf (0-5) H 05/13/22 13:36 Amorphous Sediment Not Reportable 05/13/22 13:36 Urine Bacteria 4+ /hpf (NONE) H 05/13/22 13:36 Discharge Plan Discharge Patient Disposition: Admitted As Inpatient Admit Provider: Agustin Hernandez Condition: Stable Coding Level of Care Code ED Housekeeping Department Worker for Prachi Aguila
[2022-05-13 12:09] LABS: ABG PCO2 57.2 mmHg (35-45); Alveolar-Arterial Oxygen Gradi 2.6 mmHg (5-10); Base Excess ABG 8.6 mmol/L (-2.0-2.0); Blood Gas Allen Test Pos; Blood Gas Operator Identificat WALCI; Blood Gas Sample Site Radial, left; Blood Gas Sample Type Arterial; Carboxyhemoglobin 1.3 %THgb (0.4-20.1); HCO3 ABG 35.2 mmol/L (22-26); HGB O2 Sat 89.8 % (95-100); Ionized Calcium Level - ABG 1.1 mmol/L (1.1-1.4); Oxygen Device NC; Oxygen Saturation ABG 91.9; PO2 ABG 59.9 mmHg (80.0-100.0); Potassium Level - ABG 3.5 mmol/L (3.5-5.0); Total Hemoglobin 11.7 g/dL (12-16)
--- NOTE | 2022-05-13 12:23 | USCV_ITS ---
Dennise Funes Age: 67 Gender: F : 1955 Exam Date: 05/13/2022 13:06 Ordering Phys: Garth Colin DO Technologist: FELIBERTO Exam Location: [facility] – [place] Indication: Rt leg pain HISTORY: Lower extremity pain. PROCEDURES: The venous duplex Doppler examination of both lower extremities was performed in the standard fashion. The following venous structures were evaluated: common femoral vein, profunda vein, proximal portion of the greater saphenous vein, superficial femoral vein, and the popliteal vein. In addition, the posterior tibial and peroneal trunk were evaluated. FINDINGS: Normal 2-D Doppler and augmentation and compressibility throughout the lower extremity venous structures. Additional imaging through the proximal calf veins also reveals no thrombus. Limited evaluation of the greater saphenous vein is patent with no thrombus.. CONCLUSIONS No evidence of right lower extremity DVT. No evidence of left lower extremity DVT. Joseph Marshall MD (Electronically Signed) Final Date: 13 May 2022 15:57 S
[2022-05-13 12:48] LABS: Basophils % 0.3 %; Eosinophils % 0.1 %; Hematocrit 37.6 % (37.0-47.0); Hemoglobin 11.9 g/dL (11.5-15.3); Lymphocytes # 0.8 10^3/uL (0.8-4.8); Lymphocytes % 6.9 %; Mean Corpuscular HGB Conc 31.6 g/dL (30.0-36.0); Mean Corpuscular Hemoglobin 29.1 pg (28.0-34.0); Mean Corpuscular Volume 91.9 fl (81-99); Mean Platelet Volume 9.7 fL (7.4-10.4); Monocytes # 0.7 10^3/uL (0.2-0.9); Monocytes % 6.4 %; Neutrophils # 9.46 10^3/uL (1.8-7.7); Neutrophils % 85.8 %; Nucleated Red Blood Cells % 0 %; Platelet Count 240 10^3/cmm (130-400); Red Blood Count 4.09 10^6/uL (4.1-5.3); Red Cell Distribution Width 14.3 % (12.1-15.1)
[2022-05-13 13:16] LABS: Alanine Aminotransferase 16 U/L (0-33); Albumin Level 3.7 g/dL (3.5-5.2); Alkaline Phosphatase 143 U/L (35-105); Anion Gap 11.7 (5-19); Aspartate Amino Transferase 21 U/L (0-32); Blood Urea Nitrogen 18 mg/dL (8-23); Calcium 8.1 mg/dL (8.5-10.5); Carbon Dioxide 32 mmol/L (22-29); Chloride 97 mmol/L (98-107); Globulin 2.8 g/dL (1.3-4.6); Glomerular Filtration Rate 71.8 mL/min (90-130); Glucose 129 mg/dL (65-115); Osmolality Calculated 288 mOsm/kg (285-295); Potassium 3.7 mmol/L (3.5-5.1); Sodium 137 mmol/L (136-145); Total Bilirubin 0.5 mg/dL (0.15-1.2); Total Protein 6.5 g/dL (6.6-8.7)
[2022-05-13 13:17] LABS: Troponin(5th) Baseline 19 ng/L (0-10)
[2022-05-13] MEDS: cefTRIAXone 1,000 MG in sodium chloride 0.9% (plus) 50 ML 100 MG IV (13:28)
--- NOTE | 2022-05-13 13:30 | PC.NURSE ---
roney gilbert performing straight cath per dr. payton gomez.
[2022-05-13] MEDS: azithromycin 500 MG in sodium chloride 0.9% 250 ML 250 MG IV (13:39)
[2022-05-13 13:45] LABS: Bilirubin Urine 1+ (Negative); Blood Urine Neg (Negative); Glucose Urine UA Norm (Normal); Ketones Urine Negative (Negative); Leukocyte Esterase Urine Trace (Negative); Nitrate Urine Positive (Negative); Protein Urine Neg (Negative); Specific Gravity, Urine 1.015 (1.005-1.030); Urine Appearance Cloudy (CLEAR); Urine Color Yellow (Yellow); Urobilinogen Urine Neg (Negative); pH Urine 5 (5-7)
[2022-05-13 13:46] LABS: Add Urine Microscopic? YES
--- NOTE | 2022-05-13 13:48 | ECG_ITS ---
[facility] Test Date: 2022-05-13 Pat Name: Dennise Funes Department: Room: Gender: Female Neurophysiological Technician: : 1955 Requested By: Garth Turner Order Number: [id number] Evgeny MD: Ruthann Mccullough M.D. Measurements Intervals [place] Rate: 78 P: 44 [place]: 183 QRS: 15 QRSD: 160 T: 53 QT: 451 QTc: 515 Interpretive Statements SINUS RHYTHM LEFT BUNDLE BRANCH BLOCK [120+ ms QRS DURATION, 80+ ms Q/S IN V1/V2, 85+ ms R IN I/aVL/V5/V6] Compared to ECG 05/13/2022 12:01:15 No significant changes Electronically Signed On 05-14-2022 20:39:52 SOLUTION MAKER by Ruthann Mccullough M.D. [id number]
[2022-05-13 13:52] LABS: RBC Urine RARE /hpf (0-2)
[2022-05-13 13:53] LABS: Add Urine Culture? Yes; Bacteria Urine 4+ /hpf
[2022-05-13 15:24] LABS: Troponin 5 2HR 16.65 ng/L (0-10); Troponin 5 2HR Delta -2.35 ABS# (0-10)
--- NOTE | 2022-05-13 17:07 | PM.HP ---
Providers/Chief Complaint Admitting Physician: Agustin Hernandez MD Primary Care Provider: Cyril Ramsey MD Chief Complaint: stroke like symptoms History of Present Illness Dennise Funes is a 67 year old female who carries history of sarcoma of right lower extremity which has recently showed recurrence, she is due for a PET scan and groin lymph node biopsy next week presenting today with chief complaint of hallucination, productive cough and increased oxygen requirement. As per the patient for last 3 to 4 days she has been experiencing productive cough, she is bringing up gerri sputum she has not noticed any fever however she is endorsing nausea. She has not noted any chest pain, diarrhea or flulike symptoms. As per the daughter patient was hallucinating and her O2 saturation was 74 to 78%, she has been confused and short of breath. In the ER she has been diagnosed with diffuse bilateral pneumonia, CT head unremarkable, venous Doppler did not show DVT Recent CTA chest negative for PE however she was requiring 2 L of oxygen, she has been deficiency, was asked to follow-up with PCP for sleep study Recent coronary angiogram was done secondary to positive stress test which showed 1. Normal ejection fraction visually estimated at 55%. ? 2. Left main 10 to 20%. ? 3. LAD 10 to 20%. ? 4. Circumflex proximal 30%. ? 5. RCA large dominant vessel with mid 40 to 50%. EKG showing chronic left bundle branch block, Review of Systems Const: Reports: body aches and fatigue; Denies: fever(s) Eyes: Denies: change in vision ENMT: Denies: throat pain Card: Reports: dyspnea on exertion Resp: Reports: dyspnea and productive cough GI: Denies: abdominal pain : Denies: flank pain Musc: Denies: neck pain Skin/Breast: Denies: changing lesions Neuro: Denies: headache(s) Psych: Denies: anxiety Endo: Denies: polyuria Govind/Lymph: Denies: easy bruising All/Imm: Denies: urticaria Medications/Allergies Home Medications Medication Instructions Recorded Confirmed Last Taken Type albuterol sulfate 90 mcg/actuation 2 puff inhalation Q6H PRN 12/26/20 05/13/22 Unknown Rx aerosol inhaler (Ventolin HFA) Shortness Of Breath #8.5 grams gabapentin 600 mg tablet 600 mg PO TID #90 tabs 03/09/22 05/13/2222 Rx morphine 100 mg tablet,extended 100 mg PO TID 30 days #90 tabs 03/09/22 05/13/22 05/13/22 Rx release oxycodone 30 mg tablet 30 mg PO QID PRN pain 30 days #120 04/23/22 05/13/22 05/12/22 Rx tabs aspirin 81 mg capsule 81 mg PO DAILY 30 days #30 caps 04/30/22 05/13/22 05/13/22 Rx atorvastatin 40 mg tablet 40 mg PO DAILY 30 days #30 tabs 04/30/22 05/13/22 05/13/22 Rx cyanocobalamin (vitamin B-12) 1,000 mcg PO DAILY 30 days #30 tabs 04/30/22 05/13/22 05/12/22 Rx 1,000 mcg tablet (Vitamin B-12) metoprolol tartrate 25 mg tablet 25 mg PO BID 04/30/22 05/13/22 05/13/22 History nitroglycerin 0.4 mg sublingual 0.4 mg sublingual Q5M PRN Chest 04/30/22 05/13/22 Unknown History tablet (Nitrostat) Pain escitalopram oxalate 10 mg tablet 10 mg PO DAILY #30 tabs 05/05/22 05/13/22 05/13/22 Rx (Lexapro) hydroxyzine pamoate 25 mg capsule 25 mg PO TID PRN Anxiety #90 caps 05/05/22 05/13/22 Unknown Rx omeprazole 40 mg capsule,delayed 40 mg PO DAILY #90 caps 05/05/22 05/13/22 05/13/22 Rx release furosemide 40 mg tablet (Lasix) 40 - 80 mg PO DAILY PRN Edema #60 05/12/22 05/13/22 05/13/22 Rx tabs 40 mg Allergies Allergy/AdvReac Type Severity Reaction Status Date / Time phenytoin [From Dilantin] Allergy Mild Rash Verified 05/05/22 15:51 Penicillins Allergy Unknown Unknown Verified 05/13/22 13:29 PFSH Acute PFSH: Medical History Anxiety and depression Chronic narcotic use Chronic pain of right knee COPD (chronic obstructive pulmonary disease) Degenerative arthritis GERD (gastroesophageal reflux disease) Heart failure with preserved ejection fraction History of nonmelanoma skin cancer Hypertension Metabolic syndrome Sarcoma of right lower extremity Sleep apnea Undifferentiated pleomorphic sarcoma Surgical History H/O tubal ligation History of hernia repair History of partial hysterectomy History of surgery on lower extremity (02/14/20) 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 Bean History of total right hip arthroplasty Hx of appendectomy Family History Mother Family history of premature coronary artery disease Hypertension Brother Cancer Hypertension Sister Cancer Father Family history of premature coronary artery disease Hypertension Denies family history of Diabetes CAD (coronary artery disease) Clotting disorder Dementia Hyperlipidemia Psychiatric illness Chronic kidney disease (CKD) Suicide Anesthesia complication Bleeding disorder Lung disease Stroke Social History Smoking and tobacco status: former smoker (smoked x 40 years) Quit status (tobacco): has quit using tobacco Year quit tobacco: 2016 Former quit date comment: 2ppd x 36 years Second hand smoke exposure: No Alcohol intake: never Adopted: No Caregiver/support person: Yes Lives independently: Yes Marital status: Single Current occupational status: employed 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 [employer] [place] History of recent travel: No Vitals/I&O/Wt Last Vital Signs Temp 98.3 F 05/13/22 11:40 Pulse 89 05/13/22 11:40 Resp 21 H 05/13/22 11:40 BP 107/53 05/13/22 11:40 Pulse Ox 90 05/13/22 11:40 O2 Del Method 05/13/22 11:40 O2 Flow Rate 3 05/13/22 11:40 Weight last 48 hrs Weight 83.915 kg Physical Exam Narrative: Patient clinically looks dry Awake and alert Acute chest pain or shortness of breath Bilateral breath sounds with bronchial breathing Mild wheezing Abdomen soft Lower extremity no edema Appropriate mood and affect EOMI, PERRLA S1, S2 Data 05/13/22 12:37 05/13/22 12:37 Micro: Microbiology 05/13/22 13:25 Blood Culture - Preliminary Blood SPECIMEN COLLECTED 05/13/22 12:37 Blood Culture - Preliminary Blood SPECIMEN COLLECTED A&P Assessment and plan (1) Oxygen dependent: (2) Essential hypertension: (3) Undifferentiated pleomorphic sarcoma: (4) Mass of right upper extremity: (5) Heart failure with preserved ejection fraction: (6) COPD (chronic obstructive pulmonary disease): Qualifiers: COPD type: unspecified COPD Qualified Code(s): J44.9 - Chronic obstructive pulmonary disease, unspecified Plan Acute on chronic hypoxic Currently requiring 4 L, at baseline she was using 2 L Secondary to pneumonia Check procalcitonin, Recent CTA chest did not show PE Preserved ejection fraction heart failure without exacerbation currently patient looks dry She would need better p.o. intake and IV fluid Hold Lasix for now YOLY: Patient does not want to use CPAP stopped using it 1.5 years ago Undifferentiated pleomorphic sarcoma Sarcoma has reoccurred with involvement of lymph nodes, especially of groin area and behind the knee she is scheduled to get PET scan and lymph node biopsy next week Needle biopsy 05/18, PET scan 05/20 Depression: Continue antidepressant Full code Cardiac diet DVT prophylaxis on board No active signs of metabolic encephalopathy, patient is awake and alert oriented x3 GCS 15 abnormal UA noted no active signs or symptoms of UTI Attestations Medical Necessity Statement*: Anticipating more than 2 midnight Time Spent in Patient Care: 40 minutes Coding Level of Care Code Acute Local Company Hazmat Driver for Prachi Fwke Diagnoses Oxygen dependent Z99.81 Essential hypertension I10 Undifferentiated pleomorphic sarcoma C49.9 Mass of right upper extremity R22.31 Heart failure with preserved ejection fraction I50.30 COPD (chronic obstructive pulmonary disease) J44.9 COPD type: unspecified COPD
[2022-05-13] MEDS: morphine 4 mg/mL SDV 1 mL 2 MG IVP (17:31)
--- NOTE | 2022-05-13 17:48 | ECG_ITS ---
[facility] Test Date: 2022-05-13 Pat Name: Dennise Funes Department: Room: 272 Gender: Female Licensed Mortgage Loan Officer: : 1955 Requested By: Garth Turner Order Number: [id number] Evgeny MD: Ruthann Mccullough M.D. Measurements Intervals [place] Rate: 68 P: 46 [place]: 190 QRS: 9 QRSD: 163 T: 50 QT: 491 QTc: 526 Interpretive Statements SINUS RHYTHM LEFT BUNDLE BRANCH BLOCK [120+ ms QRS DURATION, 80+ ms Q/S IN V1/V2, 85+ ms R IN I/aVL/V5/V6] Compared to ECG 05/13/2022 14:08:03 No significant changes Electronically Signed On 05-14-2022 20:38:46 SENIOR PAYROLL MANAGER by Ruthann Mccullough M.D. [id number]
[2022-05-13] MEDS: heparin 5,000 unit/mL INJ 1 mL 5000 UNIT SUBCUT (18:15)
[2022-05-13 18:58] LABS: D Dimer 1.87 ug/mIFEU (0-0.59)
[2022-05-13 19:06] LABS: Troponin 5 6HR 13.56 ng/L (0-10)
[2022-05-13 19:15] LABS: Procalcitonin 8.49 ng/mL (0-0.5)
[2022-05-13 19:19] LABS: Troponin 5 6HR Delta -5.44 ng/L (0-12)
[2022-05-13 20:14] LABS: NT Pro B Type Natriuretic Pept 1133 pg/mL (0-125)
[2022-05-13] MEDS: sodium chloride 0.9% 1,000 ML 50 ML IV (20:39)
[2022-05-13] MEDS: gabapentin 300 mg Capsule 600 MG PO (20:39)
[2022-05-13] MEDS: morphine IR 15 mg Tablet PO (22:23)
[2022-05-14] VITALS (7 sets, daily range): BP systolic 109–146; BP diastolic 60–76; PULSE 56–78; RESP 16–20; TEMP 36.6; O2SAT 93–98
[2022-05-14 04:49] LABS: Basophils % 0.3 %; Eosinophils % 0.3 %; Hematocrit 30.8 % (37.0-47.0); Hemoglobin 9.7 g/dL (11.5-15.3); Lymphocytes # 1.3 10^3/uL (0.8-4.8); Mean Corpuscular HGB Conc 31.5 g/dL (30.0-36.0); Mean Corpuscular Hemoglobin 29.6 pg (28.0-34.0); Mean Corpuscular Volume 93.9 fl (81-99); Mean Platelet Volume 9.9 fL (7.4-10.4); Monocytes # 0.5 10^3/uL (0.2-0.9); Monocytes % 7.4 %; Neutrophils # 5.12 10^3/uL (1.8-7.7); Neutrophils % 72.7 %; Nucleated Red Blood Cells % 0 %; Platelet Count 202 10^3/cmm (130-400); Red Blood Count 3.28 10^6/uL (4.1-5.3); Red Cell Distribution Width 14.4 % (12.1-15.1)
[2022-05-14 05:18] LABS: Anion Gap 5.5 (5-19); Blood Urea Nitrogen 15 mg/dL (8-23); C Reactive Protein 83.2 mg/L (0.0-4.9); Carbon Dioxide 34 mmol/L (22-29); Chloride 102 mmol/L (98-107); Glomerular Filtration Rate 123.4 mL/min (90-130); Glucose 97 mg/dL (65-115); Magnesium 1.7 mg/dL (1.7-2.3); Osmolality Calculated 287 mOsm/kg (285-295); Phosphorus 2.1 mg/dL (2.5-4.5); Potassium 3.5 mmol/L (3.5-5.1); Sodium 138 mmol/L (136-145)
[2022-05-14] MEDS: oxyCODONE IR 30 mg Tablet PO (05:32)
[2022-05-14] MEDS: heparin 5,000 unit/mL INJ 1 mL 5000 UNIT SUBCUT (05:32)
--- NOTE | 2022-05-14 07:59 | CT_ITS ---
WS: [id number] CTA OF THE CHEST WITH PULMONARY EMBOLISM PROTOCOL TECHNIQUE: High-resolution contrast enhanced CTA of the chest with coronal and sagittal reformatted i mages with pulmonary embolism protocol. MIP images are also reviewed. CLINICAL INFORMATION: hypoxia COMPARISON: CTA May 01, 2022 DLP: 398.[address] scans at [facility] use at least one of these dose optimization techniques: automated e xposure control; mA and/or kV adjustment per patient size (includes targeted exams where dose is matc hed to clinical indication); or iterative reconstruction. FINDINGS: Proximal main pulmonary arteries are normal. Normal segmental and subsegmental pulmonary arteries. No evidence of pulmonary embolus. Mild aortic calcification. No mediastinal or hilar lymphadenopathy. N o axillary lymphadenopathy. Cholecystectomy clips. Prior ventral abdominal wall hernia repair in the upper abdomen. Small esophageal hiatal hernia. Bilateral adrenal adenomas unchanged since 2013. Mild thoracic curve. Mild thoracic kyphosis. Since May 01, 2022 new patchy hazy groundglass infiltrates in the RIGHT greater than LEFT upper lobes consistent with pneumonia. Patchy RIGHT greater than LEFT perihilar infiltrates. Slight RIGHT b asilar atelectasis. 7 mm noncalcified nodule LEFT lower lobe. Bilateral bronchovascular thickening. Slightly prominent RI GHT hilar lymph nodes likely reactive. CT/CT angio chest PE protcl [id number] IMPRESSION: 1. No evidence of pulmonary embolus. 2. New patchy groundglass and nodular infiltrates in RIGHT greater than LEFT u pper lobes and RIGHT greater than LEFT perihilar regions compatible with pneumo nicholas. A few reactive RIGHT hilar lymph nodes. 3. Bilateral adrenal nodules partially visualized likely adenomas are unchange d.
[2022-05-14] MEDS: cyanocobalamin 1,000 mcg Tablet 1000 MCG PO (08:41)
[2022-05-14] MEDS: aspirin 81 mg EC Tablet PO (08:41)
[2022-05-14] MEDS: escitalopram 10 mg Tablet PO (08:41)
[2022-05-14] MEDS: metoprolol tartrate 25 mg Tablet PO (08:41)
[2022-05-14] MEDS: atorvastatin 40 mg Tablet PO (08:41)
[2022-05-14] MEDS: sennosides-docusate Tablet 1 TAB PO (08:41)
[2022-05-14] MEDS: gabapentin 300 mg Capsule 600 MG PO (08:41)
[2022-05-14] MEDS: azithromycin 250 mg Tablet 500 MG PO (08:41)
[2022-05-14] MEDS: cefTRIAXone 1,000 MG in sodium chloride 0.9% (plus) 50 ML 100 MG IV (08:42)
--- NOTE | 2022-05-14 08:52 | W.ED.GENADLT ---
HPI - General Adult General: Chief complaint: Altered Mental Status Stated complaint: stroke like symptoms Time Seen by Provider: 05/13/22 11:47 Source: patient Mode of arrival: ambulatory History of Present Illness: 67-year-old female presents to the emergency room with history of altered mental status and some hypoxia. Initial report was that she was having strokelike symptoms however when I seen the patient there is no lateralizing symptoms she appears more to be altered due to acute illness and hypoxia. Patient has known history of osteosarcoma and recently has recurrent recurrence and is being evaluated with PET scan for restaging to look at treatment options. She has been confused for the last couple of weeks for the last few days has been significantly worse now the daughter had noticed some hypoxia. Has had some mild cough as well. Patient confused able to answer questions after oxygen is started but the daughter related that prior to that she was babbling at times and gave nonsensical answers. She normally is supposed to be on 2 L of oxygen but when arrived here was on oxygen. She is able to give me dates times recognize people home phone numbers addresses birthdays etc. Her NIH is 0. This was all after oxygen had been administered. She denies any abdominal pain no dysuria urgency or frequency no chest pain Onset (ago): day(s) Severity: moderate Relieving factors: none Exacerbating factors: none Associated symptoms: Reports confusion, cough, decreased appetite, dyspnea, malaise, short of breath and weakness; Deny chest pain, diaphoresis, fevers/chills, headache(s), nausea, rash, palpitations, seizures, syncope or vomiting Treatments prior to arrival: none Review of Systems Const: Reports: malaise; Denies: fever(s), chills, fatigue or diaphoresis ENMT: Denies: throat pain, ear or mastoid pain, nasal discharge or nasal congestion Card: Denies: chest pain, palpitations or syncope Resp: Reports: dyspnea and non-productive cough; Denies: productive cough GI: Denies: abdominal pain, nausea or vomiting : Denies: flank pain, difficulty voiding, dysuria, urinary frequency or urinary urgency Musc: Denies: neck pain or back pain Skin/Breast: Denies: rash Neuro: Reports: confusion; Denies: headache(s) PFS ED PFSH: Medical History Anxiety and depression Chronic narcotic use Chronic pain of right knee COPD (chronic obstructive pulmonary disease) Degenerative arthritis GERD (gastroesophageal reflux disease) Heart failure with preserved ejection fraction History of nonmelanoma skin cancer Hypertension Metabolic syndrome Sarcoma of right lower extremity Sleep apnea Undifferentiated pleomorphic sarcoma Surgical History H/O tubal ligation History of hernia repair History of partial hysterectomy History of surgery on lower extremity (02/14/20) 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 Bean History of total right hip arthroplasty Hx of appendectomy Family History Mother Family history of premature coronary artery disease Hypertension Brother Cancer Hypertension Sister Cancer Father Family history of premature coronary artery disease Hypertension Denies family history of Diabetes CAD (coronary artery disease) Clotting disorder Dementia Hyperlipidemia Psychiatric illness Chronic kidney disease (CKD) Suicide Anesthesia complication Bleeding disorder Lung disease Stroke Social History Smoking and tobacco status: former smoker (smoked x 40 years) Quit status (tobacco): has quit using tobacco Year quit tobacco: 2016 Former quit date comment: 2ppd x 36 years Second hand smoke exposure: No Alcohol intake: never Adopted: No Caregiver/support person: Yes Lives independently: Yes Marital status: Single Current occupational status: employed 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 [employer] History of recent travel: No Physical Exam Const: GENERAL APPEARANCE: cooperative and comfortable ORIENTATION/CONSCIOUSNESS: Yes awake, Yes oriented to person, Yes oriented to place and Yes oriented to time HENMT: COMMON NORMALS: normocephalic, atraumatic and hearing grossly normal bilaterally HEAD & SCALP: normocephalic and atraumatic Resp: COMMON NORMALS: normal respiratory effort, No retractions and No use of accessory muscles AUSCULTATION: rales bilateral at the base and wheezes Cardio: COMMON NORMALS: regular rate, regular rhythm and No murmurs present (Cardio) RATE: regular rate RHYTHM: regular rhythm GI: COMMON NORMALS: Soft to palpation and No hepatosplenomegaly present AUSCULTATION: Yes normoactive bowel sounds PALPATION: Yes Soft to palpation, No Tenderness to palpation present (GI), No Guarding due to palpation present (GI) and Yes No hepatosplenomegaly present Extremity: COMMON NORMALS: normal to inspection, capillary refill normal, no clubbing, cyanosis or edema, no calf tenderness and no pedal edema Neuro: SENSORIUM/ORIENTATION: Yes oriented to person, Yes oriented to place and Yes oriented to time Skin: COMMON NORMALS: no rashes or lesions noted GENERAL SKIN EXAM: no rashes or lesions noted Course Vital Signs: Vital signs: Vital Signs Temperature 97.8 F 05/14/22 07:49 Pulse Rate 58 L 05/14/22 07:53 Respiratory Rate 16 05/14/22 07:53 Blood Pressure 109/60 05/14/22 07:49 Pulse Oximetry 98 05/14/22 07:53 Oxygen Delivery Me thod 05/14/22 07:53 Oxygen Flow Rate 3 05/14/22 07:53 MDM - General Adult Medical Decision Making Ammonia with hypoxia. Altered mental status is corrected after administration of oxygen at 3 L/min. Patient started on ceftriaxone and Zithromax. Discussed with daughter will admit. She had a transient hypotensive episode on monitor however when the cuff was readjusted her blood pressure had normalized. I think the hypotensive reading was spurious due to cuff positioning. Medical Records I reviewed the patient's medical records. Lab Data I reviewed the patient's lab results. 05/14/22 04:09 05/14/22 04:09 Radiology Impressions Chest X-Ray 05/13/22 11:48 Impression: 1. Diffuse patchy pulmonary opacity which could represent diffuse pneumonia. 2. Atherosclerosis. Head CT 05/13/22 11:48 IMPRESSION: 1. No evidence of intracranial hemorrhage or mass effect. 2. Mild small vessel changes. Mild parenchymal volume loss. 3. No acute intracranial findings. Laboratory Results WBC 11.0 10^3/uL (4.0-10.0) H 05/13/22 12:37 RBC 4.09 10^6/uL (4.1-5.3) L 05/13/22 12:37 Hgb 11.9 g/dL (11.5-15.3) 05/13/22 12:37 Hct 37.6 % (37.0-47.0) 05/13/22 12:37 MCV 91.9 fl (81-99) 05/13/22 12:37 MCH 29.1 pg (28.0-34.0) 05/13/22 12:37 MCHC 31.6 g/dL (30.0-36.0) 05/13/22 12:37 RDW 14.3 % (12.1-15.1) 05/13/22 12:37 Plt Count 240 10^3/cmm (130-400) 05/13/22 12:37 MPV 9.7 fL (7.4-10.4) 05/13/22 12:37 Neut % (Auto) 85.8 % 05/13/22 12:37 Lymph % (Auto) 6.9 % 05/13/22 12:37 [place] % (Auto) 6.4 % 05/13/22 12:37 Eos % (Auto) 0.1 % 05/13/22 12:37 Baso % (Auto) 0.3 % 05/13/22 12:37 Neut # (Auto) 9.46 10^3/uL (1.8-7.7) H 05/13/22 12:37 Lymph # (Auto) 0.8 10^3/uL (0.8-4.8) 05/13/22 12:37 [place] # (Auto) 0.7 10^3/uL (0.2-0.9) 05/13/22 12:37 Eos # (Auto) 0.0 10^3/uL (0.0-0.8) 05/13/22 12:37 Baso # (Auto) 0.0 10^3/uL (0.0-0.1) 05/13/22 12:37 Nucleated RBC % (auto) 0 % 05/13/22 12:37 Nucleated RBCs # 0.0 /100WBC 05/13/22 12:37 Specimen Type Arterial 05/13/22 11:58 Sample Site Radial, left 05/13/22 11:58 ABG pH 7.40 (7.35-7.45) 05/13/22 11:58 ABG pCO2 57.2 mmHg (35-45) H 05/13/22 11:58 ABG pO2 59.9 mmHg (80.0-100.0) L 05/13/22 11:58 ABG HCO3 35.2 mmol/L (22-26) H 05/13/22 11:58 ABG O2 Saturation 91.9 05/13/22 11:58 ABG Base Excess 8.6 mmol/L (-2.0-2.0) H 05/13/22 11:58 Dexter Test Pos 05/13/22 11:58 A-a O2 Gradient 2.6 mmHg (5-10) L 05/13/22 11:58 Hematocrit 36.0 % (37-47) L 05/13/22 11:58 Hgb O2 Saturation 89.8 % (95-100) L 05/13/22 11:58 Carboxyhemoglobin 1.3 %THgb (0.4-20.1) 05/13/22 11:58 Methemoglobin 1.0 % (0.4-1.5) 05/13/22 11:58 Total Hemoglobin 11.7 g/dL (12-16) L 05/13/22 11:58 Sodium 141.0 mmol/L (131-143) 05/13/22 11:58 Potassium 3.5 mmol/L (3.5-5.0) 05/13/22 11:58 Glucose 139.0 mg/dL (70-115) H 05/13/22 11:58 Ionized Calcium 1.1 mmol/L (1.1-1.4) 05/13/22 11:58 O2 Delivery Device Nc 05/13/22 11:58 O2 Liters/Min 3.0 % 05/13/22 11:58 Pantry Attendant ID [place] 05/13/22 11:58 Sodium 137 mmol/L (136-145) 05/13/22 12:37 Potassium 3.7 mmol/L (3.5-5.1) 05/13/22 12:37 Chloride 97 mmol/L (98-107) L 05/13/22 12:37 Carbon Dioxide 32 mmol/L (22-29) H 05/13/22 12:37 Anion Gap 11.7 (5-19) 05/13/22 12:37 BUN 18 mg/dL (8-23) 05/13/22 12:37 Creatinine 0.8 mg/dL (0.5-0.9) 05/13/22 12:37 GFR Calculation 71.8 mL/min (90-130) L 05/13/22 12:37 Glucose 129 mg/dL (65-115) H 05/13/22 12:37 Calculated Osmolality 288 mOsm/kg (285-295) 05/13/22 12:37 Calcium 8.1 mg/dL (8.5-10.5) L 05/13/22 12:37 Total Bilirubin 0.5 mg/dL (0.15-1.2) 05/13/22 12:37 AST 21 U/L (0-32) 05/13/22 12:37 ALT 16 U/L (0-33) 05/13/22 12:37 Alkaline Phosphatase 143 U/L (35-105) H 05/13/22 12:37 Troponin T Baseline 19 ng/L (0-10) H 05/13/22 12:37 Troponin T 120 Minute 16.65 ng/L (0-10) H 05/13/22 14:50 Delta Troponin T -2.35 ABS# (0-10) L 05/13/22 14:50 NT-Pro-B Natriuret Pep 1133 pg/mL (0-125) H 05/13/22 14:50 Total Protein 6.5 g/dL (6.6-8.7) L 05/13/22 12:37 Albumin 3.7 g/dL (3.5-5.2) 05/13/22 12:37 Globulin 2.8 g/dL (1.3-4.6) 05/13/22 12:37 Urine Color Yellow (Yellow) 05/13/22 13:36 Urine Appearance Cloudy (CLEAR) A 05/13/22 13:36 Urine pH 5 (5-7) 05/13/22 13:36 Ur Specific [place] 1.015 (1.005-1.030) 05/13/22 13:36 Urine Protein Neg (Negative) 05/13/22 13:36 Urine Glucose (UA) Norm (Normal) 05/13/22 13:36 Urine Ketones Negative (Negative) 05/13/22 13:36 Urine Blood Neg (Negative) 05/13/22 13:36 Urine Nitrate Positive (Negative) H 05/13/22 13:36 Urine Bilirubin 1+ (Negative) H 05/13/22 13:36 Urine Urobilinogen Neg mg/dL (Negative) 05/13/22 13:36 Ur Leukocyte Esterase Trace (Negative) H 05/13/22 13:36 Urine RBC Rare /hpf (0-2) 05/13/22 13:36 Urine WBC 5-10 /hpf (0-5) H 05/13/22 13:36 Ur Squamous Epith Cells 5-10 /hpf (0-5) H 05/13/22 13:36 Amorphous Sediment Not Reportable 05/13/22 13:36 Urine Bacteria 4+ /hpf (NONE) H 05/13/22 13:36 Discharge Plan Discharge Patient Disposition: Admitted As Inpatient Admit Provider: Agustin Hernandez Clinical Impression: Undifferentiated pleomorphic sarcoma, COPD (chronic obstructive pulmonary disease), Pneumonia Condition: Stable Coding Level of Care Code ED [employer] [facility] [employer] [employer]
[2022-05-14] MEDS: iohexol 350 mg/mL 500 mL Btl (per mL) IV (09:21)
[2022-05-14] MEDS: morphine IR 15 mg Tablet PO (09:48)
--- NOTE | 2022-05-14 11:30 | PM.DCS ---
Discharge Providers Date of Admission: 05/13/22 15:57 Date of Discharge: May 14, 2022 Attending Provider at Admission: Agustin Hernandez MD Attending Provider at Discharge: Agustin Hernandez MD Primary Care Provider: Cyril Ramsey MD Diagnoses at Discharge Discharge Diagnosis (1) Oxygen dependent: Status: Acute (2) Essential hypertension: Status: Acute (3) Undifferentiated pleomorphic sarcoma: Status: Acute (4) Mass of right upper extremity: Status: Acute (5) Heart failure with preserved ejection fraction: Status: Acute (6) COPD (chronic obstructive pulmonary disease): Status: Acute Reason for Visit Reason for Visit: stroke like symptoms Hospital Course Hospital Course 67-year-old female with history of discharge from the hospital after management of chest pain, coronary angiogram was done and medical management was commended presented back with chief complaint of worsening of productive cough and symptoms of UTI. She was given ceftriaxone and azithromycin for possible pneumonia evident on chest x-ray, secondary to high D-dimer I requested CTA chest which is showing groundglass opacities on comparison to previous CT scan up to December this year seem like these groundglass patches are not new and she has been tested with COVID-19 in the past which was negative. She is not spiking fever, no signs of sepsis, leukocytosis, she is requiring 2 L of oxygen which is her baseline requirement, urine culture showing gram-negative rods I will prescribe her ciprofloxacin at the time of discharge, she required ceftriaxone and azithromycin during hospitalization. Family was counseled, all the questions were answered, they had questions regarding sarcoma patient already has needle biopsies nodule 05/18 and PET scan 05/20. She may continue gabapentin for neuropathic pain. Physical Exam Narrative: Clinically patient is euvolemic No audible stridor or wheezing S1, S2 Abdomen soft Lower extremity no swelling Awake and alert Nonfocal neuro exam Hemodynamically stable Urinary Catheter Management: Stewart: Cath Placed During This Visit: yes, but has since been removed by the nurse Reason for Continuing Indwelling Catheter: Decision to DC Catheter Urinary Catheter Date of Insertion: 05/13/22 Urinary Catheter Time of Insertion: 23:50 Date Urinary Catheter Removed: 05/14/22 Time Urinary Catheter Discontinued: 10:00 Discharge Data Studies Completed and Pending Completed Studies During Hospitalization Category Date Time Status CT head wo con* [id number] Stat Cat Scan 05/13/22 11:48 Completed CTA PE [CT angio chest PE protcl [id number]] Routine Cat Scan 05/14/22 07:59 Completed XR chest 1V portable [id number] Stat Exams 05/13/22 11:48 Completed US venous duplex lower extremity bilat [CV venous Ultrasound 05/13/22 12:23 [place] [id number]] Stat Pending at discharge Category Date Time Status Blood Culture Stat Lab 05/13/22 13:25 Results COVID OZH [Coronavirus PCR] Routine Lab 05/14/22 11:19 Ordered MRSA by PCR Stat Lab 05/13/22 22:25 Received Sputum Culture and Gram Stain Stat Lab 05/13/22 08:50 Received Sputum Culture and Gram Stain Stat Lab 05/13/22 12:28 Ordered Urine Culture Stat Lab 05/13/22 13:36 Results Radiology Impressions Chest X-Ray 05/13/22 11:48 Impression: 1. Diffuse patchy pulmonary opacity which could represent diffuse pneumonia. 2. Atherosclerosis. Head CT 05/13/22 11:48 IMPRESSION: 1. No evidence of intracranial hemorrhage or mass effect. 2. Mild small vessel changes. Mild parenchymal volume loss. 3. No acute intracranial findings. Chest CTA 05/14/22 07:59 IMPRESSION: 1. No evidence of pulmonary embolus. 2. New patchy groundglass and nodular infiltrates in RIGHT greater than LEFT upper lobes and RIGHT greater than LEFT perihilar regions compatible with pneumonia. A few reactive RIGHT hilar lymph nodes. 3. Bilateral adrenal nodules partially visualized likely adenomas are unchanged. Laboratory Results WBC 7.0 10^3/uL (4.0-10.0) 05/14/22 04:09 RBC 3.28 10^6/uL (4.1-5.3) L 05/14/22 04:09 Hgb 9.7 g/dL (11.5-15.3) L 05/14/22 04:09 Hct 30.8 % (37.0-47.0) L 05/14/22 04:09 MCV 93.9 fl (81-99) 05/14/22 04:09 MCH 29.6 pg (28.0-34.0) 05/14/22 04:09 MCHC 31.5 g/dL (30.0-36.0) 05/14/22 04:09 RDW 14.4 % (12.1-15.1) 05/14/22 04:09 Plt Count 202 10^3/cmm (130-400) 05/14/22 04:09 MPV 9.9 fL (7.4-10.4) 05/14/22 04:09 Neut % (Auto) 72.7 % 05/14/22 04:09 Lymph % (Auto) 19.0 % 05/14/22 04:09 [place] % (Auto) 7.4 % 05/14/22 04:09 Eos % (Auto) 0.3 % 05/14/22 04:09 Baso % (Auto) 0.3 % 05/14/22 04:09 Neut # (Auto) 5.12 10^3/uL (1.8-7.7) 05/14/22 04:09 Lymph # (Auto) 1.3 10^3/uL (0.8-4.8) 05/14/22 04:09 [place] # (Auto) 0.5 10^3/uL (0.2-0.9) 05/14/22 04:09 Eos # (Auto) 0.0 10^3/uL (0.0-0.8) 05/14/22 04:09 Baso # (Auto) 0.0 10^3/uL (0.0-0.1) 05/14/22 04:09 Nucleated RBC % (auto) 0 % 05/14/22 04:09 Nucleated RBCs # 0.0 /100WBC 05/14/22 04:09 D-Dimer 1.87 ug/mIFEU (0-0.59) H 05/13/22 18:25 Specimen Type Arterial 05/13/22 11:58 Sample Site Radial, left 05/13/22 11:58 ABG pH 7.40 (7.35-7.45) 05/13/22 11:58 ABG pCO2 57.2 mmHg (35-45) H 05/13/22 11:58 ABG pO2 59.9 mmHg (80.0-100.0) L 05/13/22 11:58 ABG HCO3 35.2 mmol/L (22-26) H 05/13/22 11:58 ABG O2 Saturation 91.9 05/13/22 11:58 ABG Base Excess 8.6 mmol/L (-2.0-2.0) H 05/13/22 11:58 Dexter Test Pos 05/13/22 11:58 A-a O2 Gradient 2.6 mmHg (5-10) L 05/13/22 11:58 Hematocrit 36.0 % (37-47) L 05/13/22 11:58 Hgb O2 Saturation 89.8 % (95-100) L 05/13/22 11:58 Carboxyhemoglobin 1.3 %THgb (0.4-20.1) 05/13/22 11:58 Methemoglobin 1.0 % (0.4-1.5) 05/13/22 11:58 Total Hemoglobin 11.7 g/dL (12-16) L 05/13/22 11:58 Sodium 141.0 mmol/L (131-143) 05/13/22 11:58 Potassium 3.5 mmol/L (3.5-5.0) 05/13/22 11:58 Glucose 139.0 mg/dL (70-115) H 05/13/22 11:58 Ionized Calcium 1.1 mmol/L (1.1-1.4) 05/13/22 11:58 O2 Delivery Device Nc 05/13/22 11:58 O2 Liters/Min 3.0 % 05/13/22 11:58 Clinical Services Director ID [place] 05/13/22 11:58 Sodium 138 mmol/L (136-145) 05/14/22 04:09 Potassium 3.5 mmol/L (3.5-5.1) 05/14/22 04:09 Chloride 102 mmol/L (98-107) 05/14/22 04:09 Carbon Dioxide 34 mmol/L (22-29) H 05/14/22 04:09 Anion Gap 5.5 (5-19) 05/14/22 04:09 BUN 15 mg/dL (8-23) 05/14/22 04:09 Creatinine 0.5 mg/dL (0.5-0.9) 05/14/22 04:09 GFR Calculation 123.4 mL/min (90-130) 05/14/22 04:09 Glucose 97 mg/dL (65-115) 05/14/22 04:09 Calculated Osmolality 287 mOsm/kg (285-295) 05/14/22 04:09 Calcium 8.0 mg/dL (8.5-10.5) L 05/14/22 04:09 Phosphorus 2.1 mg/dL (2.5-4.5) L 05/14/22 04:09 Magnesium 1.7 mg/dL (1.7-2.3) 05/14/22 04:09 Total Bilirubin 0.5 mg/dL (0.15-1.2) 05/13/22 12:37 AST 21 U/L (0-32) 05/13/22 12:37 ALT 16 U/L (0-33) 05/13/22 12:37 Alkaline Phosphatase 143 U/L (35-105) H 05/13/22 12:37 Troponin T Baseline 19 ng/L (0-10) H 05/13/22 12:37 Troponin T 120 Minute 16.65 ng/L (0-10) H 05/13/22 14:50 Delta Troponin T -2.35 ABS# (0-10) L 05/13/22 14:50 Troponin T Hi Sens 6Hr 13.56 ng/L (0-10) H 05/13/22 18:25 Troponin T Hi Sens 6Hr Delta -5.44 ng/L (0-12) L 05/13/22 18:25 C-Reactive Protein 83.2 mg/L (0.0-4.9) H 05/14/22 04:09 NT-Pro-B Natriuret Pep 1133 pg/mL (0-125) H 05/13/22 14:50 Total Protein 6.5 g/dL (6.6-8.7) L 05/13/22 12:37 Albumin 3.7 g/dL (3.5-5.2) 05/13/22 12:37 Globulin 2.8 g/dL (1.3-4.6) 05/13/22 12:37 Procalcitonin 8.49 ng/mL (0-0.5) H 05/13/22 18:25 Urine Color Yellow (Yellow) 05/13/22 13:36 Urine Appearance Cloudy (CLEAR) A 05/13/22 13:36 Urine pH 5 (5-7) 05/13/22 13:36 Ur Specific [place] 1.015 (1.005-1.030) 05/13/22 13:36 Urine Protein Neg (Negative) 05/13/22 13:36 Urine Glucose (UA) Norm (Normal) 05/13/22 13:36 Urine Ketones Negative (Negative) 05/13/22 13:36 Urine Blood Neg (Negative) 05/13/22 13:36 Urine Nitrate Positive (Negative) H 05/13/22 13:36 Urine Bilirubin 1+ (Negative) H 05/13/22 13:36 Urine Urobilinogen Neg mg/dL (Negative) 05/13/22 13:36 Ur Leukocyte Esterase Trace (Negative) H 05/13/22 13:36 Urine RBC Rare /hpf (0-2) 05/13/22 13:36 Urine WBC 5-10 /hpf (0-5) H 05/13/22 13:36 Ur Squamous Epith Cells 5-10 /hpf (0-5) H 05/13/22 13:36 Amorphous Sediment Not Reportable 05/13/22 13:36 Urine Bacteria 4+ /hpf (NONE) H 05/13/22 13:36 Vitals Last Vital Signs Temp 97.8 F 05/14/22 07:49 Pulse 58 L 05/14/22 07:53 Resp 18 05/14/22 09:48 BP 109/60 05/14/22 07:49 Pulse Ox 93 05/14/22 09:48 O2 Del Method 05/14/22 07:53 O2 Flow Rate 3 05/14/22 08:00 Discharge Plan Discharge Patient Disposition: Home Condition: Stable Prescriptions: New potassium chloride 10 mEq tablet extended release 10 meq PO DAILY Qty: 30 0RF Rx Instructions: Take potassium on the days you are taking Lasix otherwise do not ciprofloxacin HCl 500 mg tablet 500 mg PO BID 5 Days Qty: 10 0RF Continued albuterol sulfate [Ventolin HFA] 90 mcg/actuation HFA aerosol inhaler 2 puff INHALATION Q6H PRN (Reason: Shortness Of Breath) Qty: 8.5 0RF gabapentin 600 mg tablet 600 mg PO TID Qty: 90 3RF morphine 100 mg tablet extended release 100 mg PO TID 30 Days Qty: 90 0RF omeprazole 40 mg capsule,delayed release(DR/EC) 40 mg PO DAILY Qty: 90 1RF hydroxyzine pamoate 25 mg capsule 25 mg PO TID PRN (Reason: Anxiety) Qty: 90 0RF escitalopram oxalate [Lexapro] 10 mg tablet 10 mg PO DAILY Qty: 30 0RF oxycodone 30 mg tablet 30 mg PO QID PRN (Reason: pain) 30 Days Qty: 120 0RF Lasix 40 mg tablet 40 - 80 mg PO DAILY PRN (Reason: Edema) Qty: 60 0RF Hold Instructions: Resume on 05/07/22. HOLD UNTIL LASIX 20MG IS COMPLETED nitroglycerin [Nitrostat] 0.4 mg Tablet, Sublingual 0.4 mg SUBLINGUAL Q5M PRN (Reason: Chest Pain) Rx Instructions: do not exceed 3 doses per episode metoprolol tartrate 25 mg tablet 25 mg PO BID cyanocobalamin (vitamin B-12) [Vitamin B-12] 1,000 mcg Tablet 1,000 mcg PO DAILY 30 Days Qty: 30 0RF aspirin 81 mg capsule 81 mg PO DAILY 30 Days Qty: 30 0RF atorvastatin 40 mg tablet 40 mg PO DAILY 30 Days Qty: 30 0RF Discharge Orders: Discharge Order (Routine); Ordered 05/14/22 Ordered By: Agustin Hernandez Referrals: Cyril Ramsey MD [Primary Care Provider] - 05/20/22 10:45 am Discharge Diet: Cardiac Discharge Activity: Increase activity as tolerated Patient Instructions: Opioid Safety Discharge Attestations Time Spent in Discharge Care*: less than 30 min Quality Metrics Clinical Quality Measures [ No reported AMI, CVA or VTE this stay] Coding Level of Care Code Acute Chg FW DC note Diagnoses Oxygen dependent Z99.81 Essential hypertension I10 Undifferentiated pleomorphic sarcoma C49.9 Mass of right upper extremity R22.31 Heart failure with preserved ejection fraction I50.30 COPD (chronic obstructive pulmonary disease) J44.9
[2022-05-14 13:24] LABS: Adenovirus Not Detected (NOT DETECT); Chlamydia Pneumoniae Not Detected (NOT DETECT); Coronavirus 229E,HKU1,NL63,OC4 Not Detected (NOT DETECT); Human Metapneumovirus Not Detected (NOT DETECT); Human Rhinovirus/Enterovirus Not Detected (NOT DETECT); Influenza A Not Detected (NOT DETECT); Influenza A H1 Not Detected (NOT DETECT); Influenza A H1-2009 Not Detected (NOT DETECT); Influenza A H3 Not Detected (NOT DETECT); Influenza B Not Detected (NOT DETECT); Mycoplasma Pneumoniae Not Detected (NOT DETECT); Parainfluenza Virus Type 1 Not Detected (NOT DETECT); Parainfluenza Virus Type 2 Not Detected (NOT DETECT); Parainfluenza Virus Type 3 Not Detected (NOT DETECT); Parainfluenza Virus Type 4 Not Detected (NOT DETECT); Respiratory Syncytial Virus A Not Detected (NOT DETECT); Respiratory Syncytial Virus B Not Detected (NOT DETECT); SARS-COV-2 Not Detected (NOT DETECT)
== END 2022-05-14 14:15 | disposition home health service (06) ==
LOC: ER 16:12 → MEDSURG 05-14 02:44
PROVIDERS: Admitting Provider Internal Medicine; Emergency Provider Family Medicine; PCP Family Medicine; Visit Provider Internal Medicine
DX: C49.9 Malignant neoplasm of connective and soft tissue, unspecified (principal); Z99.81 Dependence on supplemental oxygen; R22.31 Localized swelling, mass and lump, right upper limb; I11.0 Hypertensive heart disease with heart failure; I50.30 Unspecified diastolic (congestive) heart failure; J44.9 Chronic obstructive pulmonary disease, unspecified; Z79.82 Long term (current) use of aspirin; Z79.891 Long term (current) use of opiate analgesic; G89.29 Other chronic pain; K21.9 Gastro-esophageal reflux disease without esophagitis; G47.30 Sleep apnea, unspecified; Z87.891 Personal history of nicotine dependence; M79.604 Pain in right leg
CPT/HCPCS: 36415; 36600; 51702; 51798; 70450; 71045; 71275; 80048; 80051; 80053; 81001; 82330; 82805; 83735; 83880; 84100; 84145; 84484; 85025; 85378; 86140; 86403; 87040; 87070; 87077; 87086; 87186; 87205; 87449; 87635; 87641; 93005; 93970; 96365; 96366; 96367; 96372; 96375; 99285; G0378; J0456; J0696; J1644; J2270; J7030; J7050; Q0144; Q9967

== ENCOUNTER 2022-05-18 09:09 | Outpatient (CLI) | payer MEDICARE, SELFPAY ==
--- NOTE | 2022-05-18 10:00 | US_ITS ---
WS: [id number] INDICATION: RIGHT inguinal mass TECHNIQUE: Ultrasound guided biopsy RIGHT inguinal lymph node FINDINGS: The procedure, including risks, benefits, and complications were discussed with the patient who agreed to proceed. Timeout was performed. Using sterile technique patient was prepped and draped in usual sterile fashion. After 1% lidocaine, using ultrasound guidance, 6 18-gauge samples were obt ained of the RIGHT inguinal mass/lymph node. Patient tolerated the procedure well. No immediate compl ications. US/US biopsy lymph node [id number] IMPRESSION: Uncomplicated RIGHT inguinal lymph node biopsy.
[2022-05-19 13:01] LABS: Lymphoma Profile (BBPL) See Report
== END 2022-05-18 09:10 | disposition home or self-care (01) ==
PROVIDERS: PCP Family Medicine; Visit Provider Internal Medicine Medical Oncology
DX: R19.09 Other intra-abdominal and pelvic swelling, mass and lump (principal); C76.3 Malignant neoplasm of pelvis
CPT/HCPCS: 38505; 76942; 88184; 88185; 88305

== ENCOUNTER 2022-07-09 08:00 | Oncology outpatient (recurring) (ONCR) | payer MEDICARE, SELFPAY ==
[2022-06-18 10:29] LABS: Basophils % 0.6 %; Eosinophils # 0.2 10^3/uL (0.0-0.8); Eosinophils % 2.4 %; Hematocrit 45.2 % (37.0-47.0); Hemoglobin 13.2 g/dL (11.5-15.3); Lymphocytes # 1.9 10^3/uL (0.8-4.8); Lymphocytes % 26.8 %; Mean Corpuscular HGB Conc 29.2 g/dL (30.0-36.0); Mean Corpuscular Hemoglobin 28.7 pg (28.0-34.0); Mean Corpuscular Volume 98.3 fl (81-99); Mean Platelet Volume 9.2 fL (7.4-10.4); Monocytes # 0.6 10^3/uL (0.2-0.9); Monocytes % 8.9 %; Neutrophils # 4.27 10^3/uL (1.8-7.7); Neutrophils % 60.7 %; Nucleated Red Blood Cells % 0 %; Platelet Count 243 10^3/cmm (130-400); Red Cell Distribution Width 14.6 % (12.1-15.1)
[2022-06-18 10:49] LABS: Alanine Aminotransferase 29 U/L (0-33); Albumin Level 3.5 g/dL (3.5-5.2); Alkaline Phosphatase 139 U/L (35-105); Anion Gap 13.3 (5-19); Aspartate Amino Transferase 26 U/L (0-32); Blood Urea Nitrogen 9 mg/dL (8-23); Calcium 8.7 mg/dL (8.5-10.5); Carbon Dioxide 28 mmol/L (22-29); Chloride 103 mmol/L (98-107); Creatinine Clr Calc Pharmacy 71.8999; Globulin 2.8 g/dL (1.3-4.6); Glucose 94 mg/dL (65-115); Osmolality Calculated 286 mOsm/kg (285-295); Potassium 5.3 mmol/L (3.5-5.1); Sodium 139 mmol/L (136-145); Total Bilirubin 0.6 mg/dL (0.15-1.2); Total Protein 6.3 g/dL (6.6-8.7)
[2022-07-08] MEDS: sodium chloride 0.9% 1,000 ML 999 ML IV (14:00)
[2022-07-08 14:28] LABS: Basophils % 0.5 %; Eosinophils % 1.6 %; Hematocrit 33.2 % (37.0-47.0); Hemoglobin 10.4 g/dL (11.5-15.3); Lymphocytes # 0.8 10^3/uL (0.8-4.8); Lymphocytes % 45.9 %; Mean Corpuscular HGB Conc 31.3 g/dL (30.0-36.0); Mean Corpuscular Hemoglobin 29.1 pg (28.0-34.0); Mean Platelet Volume 11.5 fL (7.4-10.4); Monocytes # 0.1 10^3/uL (0.2-0.9); Monocytes % 3.8 %; Neutrophils % 46.6 %; Nucleated Red Blood Cells % 0 %; Red Blood Count 3.57 10^6/uL (4.1-5.3); Red Cell Distribution Width 14.7 % (12.1-15.1); White Blood Count 1.8 10^3/uL (4.0-10.0)
[2022-07-08 14:41] LABS: Alanine Aminotransferase 321 U/L (0-33); Albumin Level 2.8 g/dL (3.5-5.2); Alkaline Phosphatase 136 U/L (35-105); Anion Gap 8.8 (5-19); Aspartate Amino Transferase 116 U/L (0-32); Blood Urea Nitrogen 17 mg/dL (8-23); Calcium 7.4 mg/dL (8.5-10.5); Carbon Dioxide 30 mmol/L (22-29); Chloride 101 mmol/L (98-107); Globulin 2.3 g/dL (1.3-4.6); Glomerular Filtration Rate 62.6 mL/min (90-130); Glucose 138 mg/dL (65-115); Osmolality Calculated 286 mOsm/kg (285-295); Potassium 3.8 mmol/L (3.5-5.1); Sodium 136 mmol/L (136-145); Total Bilirubin 0.9 mg/dL (0.15-1.2); Total Protein 5.1 g/dL (6.6-8.7)
[2022-07-08 14:59] LABS: Slide Review Slide Review Perform
[2022-07-08 15:05] LABS: Neutrophils # 0.85 10^3/uL (1.8-7.7); Platelet Count 23 10^3/cmm (130-400)
--- NOTE | 2022-07-08 15:58 | XRR_ITS ---
PROCEDURE INFORMATION: Exam: XR Left Humerus Exam date and time: 07/08/2022 4:06 PM Age: 67 years old Clinical indication: Pain and injury or trauma; Fall; Blunt trauma (contusions or hematomas); Arm, upper; Left; Upper arm; Injury date: 3 days ago; Patient HX: HX of sarcoma; Additional info: Pain after fall TECHNIQUE: Imaging protocol: Radiologic exam of the left humerus. Views: 2 or more views. COMPARISON: CR XR shoulder LT min 2V* [id number] 04/30/2022 10:04 AM FINDINGS: Bones/joints: Normal.No fracture or deformity. Soft tissues: Normal. XR/[place] [id number] IMPRESSION: Negative exam. No abnormalities detected.
[2022-07-09] MEDS: sodium chloride 0.9% 1,000 ML 999 ML IV (09:03)
[2022-07-09 09:07] LABS: Basophils % 0.8 %; Eosinophils % 1.5 %; Hematocrit 32.8 % (37.0-47.0); Hemoglobin 10.3 g/dL (11.5-15.3); Lymphocytes # 0.8 10^3/uL (0.8-4.8); Lymphocytes % 58.5 %; Mean Corpuscular HGB Conc 31.4 g/dL (30.0-36.0); Mean Corpuscular Hemoglobin 29.2 pg (28.0-34.0); Mean Corpuscular Volume 92.9 fl (81-99); Mean Platelet Volume 12.2 fL (7.4-10.4); Monocytes # 0.1 10^3/uL (0.2-0.9); Monocytes % 5.4 %; Nucleated Red Blood Cells % 0 %; Red Blood Count 3.53 10^6/uL (4.1-5.3); Red Cell Distribution Width 14.7 % (12.1-15.1); White Blood Count 1.3 10^3/uL (4.0-10.0)
[2022-07-09 09:24] LABS: Alanine Aminotransferase 268 U/L (0-33); Albumin Level 2.8 g/dL (3.5-5.2); Alkaline Phosphatase 137 U/L (35-105); Anion Gap 10.4 (5-19); Aspartate Amino Transferase 97 U/L (0-32); Blood Urea Nitrogen 19 mg/dL (8-23); Calcium 7.5 mg/dL (8.5-10.5); Carbon Dioxide 28 mmol/L (22-29); Chloride 101 mmol/L (98-107); Globulin 2.4 g/dL (1.3-4.6); Glomerular Filtration Rate 55.5 mL/min (90-130); Glucose 227 mg/dL (65-115); Osmolality Calculated 289 mOsm/kg (285-295); Potassium 4.4 mmol/L (3.5-5.1); Sodium 135 mmol/L (136-145); Total Bilirubin 0.8 mg/dL (0.15-1.2); Total Protein 5.2 g/dL (6.6-8.7)
[2022-07-09 10:14] LABS: Neutrophils # 0.43 10^3/uL (1.8-7.7); Platelet Count 17 10^3/cmm (130-400)
[2022-07-09 10:15] LABS: Slide Review Slide Review Perform
[2022-07-09 11:50] VITALS: PULSE 70; RESP 16; TEMP 36.2; O2SAT 98
[2022-07-09 11:55] VITALS: BP 96/46; PULSE 80; RESP 16; TEMP 36.2; O2SAT 98
[2022-07-09 12:00] VITALS: PULSE 68; RESP 16; TEMP 36.6; O2SAT 97
[2022-07-09 12:10] VITALS: BP 96/52; PULSE 68; RESP 16; TEMP 36.6; O2SAT 97
== END 2022-07-13 23:59 | disposition home or self-care (01) ==
PROVIDERS: Nurse Practitioner Family; PCP Family Medicine; Visit Provider Internal Medicine Medical Oncology
DX: C49.21 Malignant neoplasm of connective and soft tissue of right lower limb, including hip (principal); C77.4 Secondary and unspecified malignant neoplasm of inguinal and lower limb lymph nodes; C78.02 Secondary malignant neoplasm of left lung; E88.81 Metabolic syndrome and other insulin resistance
CPT/HCPCS: 36430; 73060; 80053; 83735; 84100; 85025; 86900; 99214; 99215; J7030; P9035

== ENCOUNTER 2022-07-10 10:56 | Observation (INO) | payer MEDICARE, SELFPAY ==
[2022-07-10 11:07] VITALS: BP 101/65; PULSE 78; TEMP 36.6; O2SAT 97; BMI 30.9
--- NOTE | 2022-07-10 11:13 | W.ED.NAVMDI ---
HPI - Nausea/Vomiting/Diarrhea General: Chief complaint: ER Hold Stated complaint: Abnormal labs, trouble speaking Time Seen by Provider: 07/10/22 11:12 History of Present Illness: Ms. Funes is a 67-year-old lady with complex past medical history including metastatic sarcoma presenting to the emergency department for generalized illness. She is recently initiated on chemotherapy and received Neulasta at [facility] in [place]. She has had significant decline since that time. She has had weakness, inability to tolerate p.o. intake, intermittent abdominal pain, generalized malaise. Aside from receiving help from her daughter she has essentially been unable to get out of bed. She has been seen in the outpatient setting for 3 days now with oncology and received fluid infusions and platelet infusions and despite this continues to feel ill. She was also initiated on Levaquin though she vomited her medications up this morning. Intensity symptoms is moderate to severe. Course has worsened. No other specific changes in health, exacerbating, or alleviating factors identified. Onset (ago): day(s) Description of vomiting: watery Associated nausea: Yes Associated abdominal pain: Yes Location of pain: None Pain consistency: now resolved Severity: moderate Exacerbating factors: eating and vomiting Relieving factors: none Context: other Associated symtoms: Reports nausea Review of Systems General: Reports: 10 or more systems reviewed and unremarkable except in HPI and below GI: Reports: nausea PFSH ED PFSH: Medical History REINA (acute kidney injury) Anxiety and depression CAD (coronary artery disease) Cancer related pain Cancer related pain Chronic narcotic use Chronic pain of right knee Conn syndrome COPD (chronic obstructive pulmonary disease) Degenerative arthritis Essential hypertension GERD (gastroesophageal reflux disease) GERD with apnea Heart failure with preserved ejection fraction History of nonmelanoma skin cancer Hypertension Metabolic syndrome Nausea and vomiting YOLY on CPAP Oxygen dependent Pancytopenia due to chemotherapy Pneumonia Sarcoma of right lower extremity Sleep apnea Undifferentiated pleomorphic sarcoma Surgical History H/O tubal ligation History of hernia repair History of partial hysterectomy History of surgery on lower extremity (02/14/20) 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 Bean History of total right hip arthroplasty Hx of appendectomy Family History Mother Family history of premature coronary artery disease Hypertension Brother Cancer Hypertension Sister Cancer Father Family history of premature coronary artery disease Hypertension Denies family history of Diabetes CAD (coronary artery disease) Clotting disorder Dementia Hyperlipidemia Psychiatric illness Chronic kidney disease (CKD) Suicide Anesthesia complication Bleeding disorder Lung disease Stroke Social History (Updated 07/21/22 @ 10:12 by Helena Montesinos LPN) Smoking and tobacco status: former smoker (smoked x 40 years) Quit status (tobacco): has quit using tobacco Year quit tobacco: 2016 Former quit date comment: 2ppd x 36 years Second hand smoke exposure: No Alcohol intake: never Adopted: No Caregiver/support person: Yes Lives independently: Yes Marital status: Single Current occupational status: employed 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 Physical Exam Const: COMMON NORMALS: alert GENERAL APPEARANCE: cooperative and well developed HENMT: COMMON NORMALS: normocephalic and atraumatic HEAD & SCALP: normocephalic and atraumatic Eye: COMMON NORMALS: conjunctivae normal CONJUNCTIVA: Yes conjunctivae normal SCLERA: sclerae normal Neck/C-Spine: COMMON NORMALS: supple GENERAL: Yes trachea midline Resp: COMMON NORMALS: clear to auscultation bilaterally EFFORT & INSPECTION: Yes able to speak in complete sentences AUSCULTATION: clear to auscultation bilaterally Cardio: COMMON NORMALS: regular rate and regular rhythm RATE: regular rate RHYTHM: regular rhythm GI: COMMON NORMALS: Soft to palpation PALPATION: Yes Soft to palpation and No Tenderness to palpation present (GI) Extremity: GENERAL: Yes normal exam except as noted and No edema Neuro: COMMON NORMALS: moves all extremities SENSORIUM/ORIENTATION: Yes alert and No Orientation impaired Psych: COMMON NORMALS: mental status grossly normal and Normal thought process present THOUGHT PROCESS: Normal thought process present Course Vital Signs: Vital signs: Vital Signs Temperature 97.9 F 07/12/22 17:48 Pulse Rate 71 07/12/22 17:48 Respiratory Rate 18 07/12/22 17:48 Blood Pressure 105/64 07/12/22 17:48 Pulse Oximetry 96 07/12/22 17:48 Oxygen Delivery Me thod 07/12/22 15:39 Oxygen Flow Rate 2 07/12/22 08:00 MDM - Nausea/Vomiting/Diarrhea Medical Decision Making 67-year-old lady with complex history presenting with generalized illness. Exam as above. Labs with leukopenia and thrombocytopenia after transfusion. ANC less than 500. Evidence of dehydration and REINA, metabolic panel. No UTI or viral illness. CT head negative for acute intracranial pathology. Additional CT notable for likely metastatic disease, CHF, subacute rib fractures. Additional abdominal findings and chest findings discussed with patient. Patient treated with fluids, antiemetic, antibiotic. Discussed with oncology who recommends admission. The results of ED evaluation were discussed with the patient including plan for admission due to requirement for level of care not available if discharged to prevent significant worsening/deterioration. Patient agreeable with plan. Discussed with hospitalist service who was agreeable to admit patient. Medical Records I reviewed the patient's medical records. Lab Data I reviewed the patient's lab results. 07/12/22 05:00 07/12/22 05:[address] 07/10/22 11:29 IMPRESSION: No acute intracranial abnormality. Chest/Abdomen/Pelvis CT 07/10/22 13:02 IMPRESSION: 1. Interval development of mild-moderate mediastinal and bilateral hilar lymphadenopathy which in view of patient's history is presumed metastatic in nature. 2. Findings suspicious for superimposed CHF. 3. Multiple subacute left rib fractures. IMPRESSION: 1. 5 cm confluent dewey mass right groin site that has undergone cystic degeneration and mild increased in size from previous exam. 2. Stable 5 cm mesenteric cyst within the mid abdomen possibly benign. 3. Bilateral renal cysts too which arising left kidney cannot be resolved as benign cyst on this exam. Recommend nonemergent follow-up renal ultrasound further assessment. 4. Stable bilateral adrenal lesions largest of which measures 5 cm, indeterminate. 5. Additional nonemergent findings as above. Laboratory Results WBC 1.5 10^3/uL (4.0-10.0) L 07/10/22 12:02 RBC 3.10 10^6/uL (4.1-5.3) L 07/10/22 12:02 Hgb 8.9 g/dL (11.5-15.3) L 07/10/22 12:02 Hct 28.8 % (37.0-47.0) L 07/10/22 12:02 MCV 92.9 fl (81-99) 07/10/22 12:02 MCH 28.7 pg (28.0-34.0) 07/10/22 12:02 MCHC 30.9 g/dL (30.0-36.0) 07/10/22 12:02 RDW 14.7 % (12.1-15.1) 07/10/22 12:02 Plt Count 27 10^3/cmm (130-400) L* D 07/10/22 12:02 MPV 11.6 fL (7.4-10.4) H 07/10/22 12:02 Neut % (Auto) 18.0 % 07/10/22 12:02 Lymph % (Auto) 57.9 % 07/10/22 12:02 [place] % (Auto) 5.5 % 07/10/22 12:02 Eos % (Auto) 0.7 % 07/10/22 12:02 Baso % (Auto) 0.7 % 07/10/22 12:02 Neut # (Auto) 0.26 10^3/uL (1.8-7.7) L* 07/10/22 12:02 Lymph # (Auto) 0.8 10^3/uL (0.8-4.8) 07/10/22 12:02 [place] # (Auto) 0.1 10^3/uL (0.2-0.9) L 07/10/22 12:02 Eos # (Auto) 0.0 10^3/uL (0.0-0.8) 07/10/22 12:02 Baso # (Auto) 0.0 10^3/uL (0.0-0.1) 07/10/22 12:02 Nucleated RBC % (auto) 0 % 07/10/22 12:02 Nucleated RBCs # 0.0 /100WBC 07/10/22 12:02 Sodium 131 mmol/L (136-145) L 07/10/22 12:02 Potassium 4.4 mmol/L (3.5-5.1) 07/10/22 12:02 Chloride 98 mmol/L (98-107) 07/10/22 12:02 Carbon Dioxide 27 mmol/L (22-29) 07/10/22 12:02 Anion Gap 10.4 (5-19) 07/10/22 12:02 BUN 20 mg/dL (8-23) 07/10/22 12:02 Creatinine 1.3 mg/dL (0.5-0.9) H 07/10/22 12:02 GFR Calculation 41.0 mL/min (90-130) L 07/10/22 12:02 Glucose 115 mg/dL (65-115) 07/10/22 12:02 POC Glucose 111 mg/dL (70-110) H 07/10/22 12:49 Calculated Osmolality 276 mOsm/kg (285-295) L 07/10/22 12:02 Lactic Acid 0.7 mmol/L (0.5-2.2) 07/10/22 12:02 Calcium 7.6 mg/dL (8.5-10.5) L 07/10/22 12:02 Magnesium 1.7 mg/dL (1.7-2.3) 07/10/22 12:02 Total Bilirubin 0.6 mg/dL (0.15-1.2) 07/10/22 12:02 AST 65 U/L (0-32) H 07/10/22 12:02 ALT 177 U/L (0-33) H 07/10/22 12:02 Alkaline Phosphatase 118 U/L (35-105) H 07/10/22 12:02 Total Protein 5.2 g/dL (6.6-8.7) L 07/10/22 12:02 Albumin 2.7 g/dL (3.5-5.2) L 07/10/22 12:02 Globulin 2.5 g/dL (1.3-4.6) 07/10/22 12:02 Vitamin B12 > 2000 pg/mL (232-1245) H 07/10/22 12:02 Procalcitonin 0.30 ng/mL (0-0.5) 07/10/22 12:02 TSH 0.72 uIU/mL (0.27-4.20) 07/10/22 12:02 Urine Color Dark yellow (Yellow) 07/10/22 12:51 Urine Appearance Clear (CLEAR) 07/10/22 12:51 Urine pH 5 (5-7) 07/10/22 12:51 Ur Specific [place] 1.015 (1.005-1.030) 07/10/22 12:51 Urine Protein Trace (Negative) 07/10/22 12:51 Urine Glucose (UA) Norm (Normal) 07/10/22 12:51 Urine Ketones Negative (Negative) 07/10/22 12:51 Urine Blood Neg (Negative) 07/10/22 12:51 Urine Nitrate Negative (Negative) 07/10/22 12:51 Urine Bilirubin Neg (Negative) 07/10/22 12:51 Urine Urobilinogen Norm mg/dL (Negative) 07/10/22 12:51 Ur Leukocyte Esterase Negative (Negative) 07/10/22 12:51 Urine RBC None /hpf (0-2) 07/10/22 12:51 Urine WBC 10-15 /hpf (0-5) H 07/10/22 12:51 Ur Squamous Epith Cells 10-15 /hpf (0-5) H 07/10/22 12:51 Amorphous Sediment Not Reportable 07/10/22 12:51 Urine Bacteria 1+ /hpf (NONE) H 07/10/22 12:51 Coronavirus 229E (PCR) Not detected (NOT DETECT) 07/10/22 12:51 SARS-CoV-2 (PCR) Not detected (NOT DETECT) 07/10/22 12:51 Blood Type A Positive 07/10/22 12:02 Rho(D) Type Positive 07/10/22 12:02 PEG Antibody Screen Negative 07/10/22 12:02 Discharge Plan Discharge Patient Disposition: Admitted As Inpatient Admit Provider: Agustin Hernandez Clinical Impression: REINA (acute kidney injury), Nausea and vomiting, Pancytopenia due to chemotherapy Condition: Stable Discharge Diet: Regular Coding Level of Care Code ED [employer] Disposal Dispatcher for Prachi Aguila
--- NOTE | 2022-07-10 11:29 | CTR_ITS ---
PROCEDURE INFORMATION: Exam: CT Head Without Contrast Exam date and time: 07/10/2022 11:38 AM Age: 67 years old Clinical indication: Altered mental status/memory loss; Patient HX: Hallucinations; AMS; Chemo. Repeated scan due to PT motion. ; Additional info: AMS, hallucinations, HX chemotherapy TECHNIQUE: Imaging protocol: Computed tomography of the head without contrast. Radiation optimization: All CT scans at this facility use at least one of these dose optimization techniques: automated exposure control; mA and/or kV adjustment per patient size (includes targeted exams where dose is matched to clinical indication); or iterative reconstruction. REPORTING DATA: Count of CT and Cardiac NM exams in prior 12 months: This patient has received 6 known CTs and 0 known cardiac nuclear medicine studies in the 12 months prior to the current study. COMPARISON: CT head wo con* [id number] 05/13/2022 12:54 PM RADIATION DOSE METRICS: Total DLP (mGy-cm): 2198.18 FINDINGS: Brain: No hemorrhage. No edema, mass effect or midline shift. Periventricular and deep white matter hypodensities compatible with chronic microvascular ischemic changes. Cerebral ventricles: No ventriculomegaly. Paranasal sinuses: Visualized sinuses are unremarkable. No fluid levels. Mastoid air cells: No mastoid effusion. Bones/joints: No acute fracture. Soft tissues: Unremarkable. CT/CT head wo con* [id number] IMPRESSION: No acute intracranial abnormality.
[2022-07-10] MEDS: sodium chloride 0.9% 1,000 ML 999 ML IV (12:09)
[2022-07-10] MEDS: ondansetron 2 mg/ML SDV 2 mL 4 MG IVP ×3 (12:09→20:28)
[2022-07-10 12:12] VITALS: BP 111/63; PULSE 73; RESP 16; O2SAT 100
[2022-07-10 12:30] LABS: Basophils % 0.7 %; Eosinophils % 0.7 %; Hematocrit 28.8 % (37.0-47.0); Hemoglobin 8.9 g/dL (11.5-15.3); Lymphocytes # 0.8 10^3/uL (0.8-4.8); Lymphocytes % 57.9 %; Mean Corpuscular HGB Conc 30.9 g/dL (30.0-36.0); Mean Corpuscular Hemoglobin 28.7 pg (28.0-34.0); Mean Corpuscular Volume 92.9 fl (81-99); Mean Platelet Volume 11.6 fL (7.4-10.4); Monocytes # 0.1 10^3/uL (0.2-0.9); Monocytes % 5.5 %; Nucleated Red Blood Cells % 0 %; Red Cell Distribution Width 14.7 % (12.1-15.1); White Blood Count 1.5 10^3/uL (4.0-10.0)
[2022-07-10 12:46] LABS: Lactic Sepsis W/Reflex 0.7 mmol/L (0.5-2.2)
[2022-07-10 12:54] LABS: Glucose Point of Care 111 mg/dL (70-110)
[2022-07-10 12:55] LABS: Alanine Aminotransferase 177 U/L (0-33); Albumin Level 2.7 g/dL (3.5-5.2); Alkaline Phosphatase 118 U/L (35-105); Anion Gap 10.4 (5-19); Aspartate Amino Transferase 65 U/L (0-32); Blood Urea Nitrogen 20 mg/dL (8-23); Calcium 7.6 mg/dL (8.5-10.5); Carbon Dioxide 27 mmol/L (22-29); Chloride 98 mmol/L (98-107); Globulin 2.5 g/dL (1.3-4.6); Glucose 115 mg/dL (65-115); Magnesium 1.7 mg/dL (1.7-2.3); Osmolality Calculated 276 mOsm/kg (285-295); Potassium 4.4 mmol/L (3.5-5.1); Sodium 131 mmol/L (136-145); Thyroid Stimulating Hormone 0.72 uIU/mL (0.27-4.20); Total Bilirubin 0.6 mg/dL (0.15-1.2); Total Protein 5.2 g/dL (6.6-8.7)
[2022-07-10 12:59] LABS: Slide Review Slide Review Perform
[2022-07-10 13:00] VITALS: BP 118/70; PULSE 71; O2SAT 92
[2022-07-10 13:00] LABS: Platelet Count 27 10^3/cmm (130-400)
[2022-07-10 13:01] LABS: Neutrophils # 0.26 10^3/uL (1.8-7.7)
--- NOTE | 2022-07-10 13:02 | CTR_ITS ---
PROCEDURE INFORMATION: Exam: CT Chest With Contrast; Diagnostic Exam date and time: 07/10/2022 1:38 PM Age: 67 years old Clinical indication: Nausea and vomiting; Other: N/v, weakness, malaise, HX sarcoma on chemo; Prior surgery TECHNIQUE: Imaging protocol: Diagnostic computed tomography of the chest with contrast. Radiation optimization: All CT scans at this facility use at least one of these dose optimization techniques: automated exposure control; mA and/or kV adjustment per patient size (includes targeted exams where dose is matched to clinical indication); or iterative reconstruction. Contrast material: OMNI 350; Contrast volume: 100 ml; Contrast route: INTRAVENOUS (IV); REPORTING DATA: Count of CT and Cardiac NM exams in prior 12 months: This patient has received 7 known CTs and 0 known cardiac nuclear medicine studies in the 12 months prior to the current study. COMPARISON: CT chest abdpel w/*[id number] 04/16/2022 10:51 AM RADIATION DOSE METRICS: Total DLP (mGy-cm): 1199.88 FINDINGS: Lungs: There are scattered ground-glass opacities with diffuse vascular engorgement and scattered thickened interlobular septa suggestive of CHF/volume overload. Small bandlike density left mid lung zone unchanged likely secondary to subsegmental atelectasis. There is interval development of small bibasilar pleural effusions that may be cardiogenic in nature with adjacent passive atelectasis at the lung bases. Pleural spaces: See Lungs finding. Heart: Cardiac silhouette is borderline enlarged the with the some reflux of contrast into the IVC suggesting right-sided cardiac decompensation. No significant pericardial effusion. No significant coronary artery calcifications. Lymph nodes: There is interval development of mild-moderate mediastinal and bilateral hilar lymphadenopathy which in view of patient's history is presumed metastatic in nature. Vasculature: There is a right-sided chest port terminating at the right cavoatrial junction. Bones/joints: There are multiple subacute healing fractures anteriorly left mid ribcage, new. No suspicious bone lesions detected. Soft tissues: Unremarkable. PROCEDURE INFORMATION: Exam: CT Abdomen And Pelvis With Contrast Exam date and time: 07/10/2022 1:38 PM Age: 67 years old Clinical indication: Nausea and vomiting; Other: N/v, weakness, malaise, HX sarcoma on chemo; Prior surgery TECHNIQUE: Imaging protocol: Computed tomography of the abdomen and pelvis with contrast. Radiation optimization: All CT scans at this facility use at least one of these dose optimization techniques: automated exposure control; mA and/or kV adjustment per patient size (includes targeted exams where dose is matched to clinical indication); or iterative reconstruction. Contrast material: OMNI 350; Contrast volume: 100 ml; Contrast route: INTRAVENOUS (IV); REPORTING DATA: Count of CT and Cardiac NM exams in prior 12 months: This patient has received 7 known CTs and 0 known cardiac nuclear medicine studies in the 12 months prior to the current study. COMPARISON: CT chest abdpel w/*[id number] 04/16/2022 10:51 AM RADIATION DOSE METRICS: Total DLP (mGy-cm): 1199.88 FINDINGS: Lungs: Lung bases are clear. Liver: Normal. No mass. Gallbladder and bile ducts: Gallbladder has been removed. Bile ducts are not appreciably dilated. Pancreas: Unremarkable. Main pancreatic duct is not significantly dilated. Spleen: Normal. No splenomegaly. Adrenal glands: There are bilateral adrenal lesions largest which is present on the right measuring 3.8 x 2.5 cm, stable, indeterminate. Kidneys and ureters: There are bilateral hypodense renal lesions tube which arising from the midpole left kidney cannot be resolved as a benign cysts on this exam. Stomach and bowel: Mild-moderate degree of retained stool throughout the large bowel otherwise GI tract is unremarkable. Appendix: No evidence of appendicitis. Intraperitoneal space: There is a 5 x 3 cm oval-shaped mesenteric cyst within the mid abdomen just right of midline unchanged in size favoring benign etiology. Vasculature: Abdominal aorta and iliac vessels are diffusely calcified. There is no aortic aneurysm. Lymph nodes: See Soft tissues finding. Urinary bladder: Unremarkable as visualized. Reproductive: Uterus has been removed. Bones/joints: Evaluation of the pelvic floor is limited due to obscuring metallic artifact emanating from patient's bilateral hip prosthesis. Moderate degenerative changes L4-L5, unchanged. Soft tissues: There is a 5 cm heterogeneously enhancing cystic mass right groin site presumed to represent a confluent dewey mass that is increased in size and more cyst-like on today's study that may be due to underlying cystic degeneration. There is a mid abdominal wall mesh. CT/CT chest abdpel w/*[id number] IMPRESSION: 1. Interval development of mild-moderate mediastinal and bilateral hilar lymphadenopathy which in view of patient's history is presumed metastatic in nature. 2. Findings suspicious for superimposed CHF. 3. Multiple subacute left rib fractures. IMPRESSION: 1. 5 cm confluent dewey mass right groin site that has undergone cystic degeneration and mild increased in size from previous exam. 2. Stable 5 cm mesenteric cyst within the mid abdomen possibly benign. 3. Bilateral renal cysts too which arising left kidney cannot be resolved as benign cyst on this exam. Recommend nonemergent follow-up renal ultrasound further assessment. 4. Stable bilateral adrenal lesions largest of which measures 5 cm, indeterminate. 5. Additional nonemergent findings as above.
[2022-07-10 13:38] LABS: Add Urine Microscopic? YES; Bilirubin Urine Neg (Negative); Blood Urine Neg (Negative); Glucose Urine UA Norm (Normal); Ketones Urine Negative (Negative); Leukocyte Esterase Urine Negative (Negative); Nitrate Urine Negative (Negative); Protein Urine Trace (Negative); Specific Gravity, Urine 1.015 (1.005-1.030); Urine Appearance Clear (CLEAR); Urine Color Dark Yellow (Yellow); Urobilinogen Urine Norm (Negative); pH Urine 5 (5-7)
[2022-07-10 13:39] LABS: Add Urine Culture? No; Bacteria Urine 1+ /hpf
[2022-07-10] MEDS: iohexol 350 mg/mL 500 mL Btl (per mL) IV (13:41)
[2022-07-10 14:00] VITALS: BP 102/48; PULSE 76; O2SAT 92
[2022-07-10] MEDS: cefepime 2,000 MG in sodium chloride 0.9% (plus) 50 ML 100 MG IV (14:42)
[2022-07-10 15:03] LABS: Adenovirus Not Detected (NOT DETECT); Chlamydia Pneumoniae Not Detected (NOT DETECT); Coronavirus 229E,HKU1,NL63,OC4 Not Detected (NOT DETECT); Human Metapneumovirus Not Detected (NOT DETECT); Human Rhinovirus/Enterovirus Not Detected (NOT DETECT); Influenza A Not Detected (NOT DETECT); Influenza A H1 Not Detected (NOT DETECT); Influenza A H1-2009 Not Detected (NOT DETECT); Influenza A H3 Not Detected (NOT DETECT); Influenza B Not Detected (NOT DETECT); Mycoplasma Pneumoniae Not Detected (NOT DETECT); Parainfluenza Virus Type 1 Not Detected (NOT DETECT); Parainfluenza Virus Type 2 Not Detected (NOT DETECT); Parainfluenza Virus Type 3 Not Detected (NOT DETECT); Parainfluenza Virus Type 4 Not Detected (NOT DETECT); Respiratory Syncytial Virus A Not Detected (NOT DETECT); Respiratory Syncytial Virus B Not Detected (NOT DETECT); SARS-COV-2 Not Detected (NOT DETECT)
--- NOTE | 2022-07-10 15:38 | P.HP_ITS ---
Providers/Chief Complaint Primary Care Provider: Cyril Ramsey MD Chief Complaint: Abnormal labs, trouble speaking History of Present Illness Dennise Funes is a 67 year old female with history of sarcoma of right leg recently started experimental chemotherapy at [facility] now she will follow-up with Dr. Maria 40 hours after her chemotherapy started-recurrent nausea and vomiting, she is not able to keep anything down that prompted her visit to the ER. In the ER she was given IV fluid hydration she has pancytopenia, she she was given Neulasta as well with chemo, she is afebrile, on Levaquin at home multiple episode of emesis in the ER,, hyponatremia, clinically dehydrated however CT scan showing mild vascular congestion in the lungs, REINA with creatinine 1.3 Abnormal transaminases Pyuria noted in urine sample CT chest and pelvis is showing worsening of lymphadenopathy, left-sided subacute rib fractures, superimposed vascular congestion, hilar lymphadenopathy, metastatic disease, right groin nodule mass Mesenteric cyst, adrenal lesions, Patient has not noticed any fever, diarrhea, chest pain or shortness of breath using CPAP at night, Patient is stating that she takes morphine and gabapentin every 6-8 hours Review of Systems Const: Denies: fever(s) Eyes: Denies: change in vision ENMT: Denies: throat pain Card: Denies: chest pain Resp: Denies: dyspnea GI: Reports: abdominal pain and nausea : Denies: flank pain Musc: Reports: extremity pain Skin/Breast: Denies: rash Neuro: Denies: headache(s) Psych: Reports: anxiety Endo: Denies: polyuria Govind/Lymph: Denies: easy bruising All/Imm: Denies: urticaria Medications/Allergies Home Medications Medication Instructions Recorded Confirmed Last Taken Type albuterol sulfate 90 mcg/actuation 2 puff inhalation Q6H PRN 12/26/20 07/10/22 Unknown Rx aerosol inhaler (Ventolin HFA) Shortness Of Breath #8.5 grams nitroglycerin 0.4 mg sublingual 0.4 mg sublingual Q5M PRN Chest 04/30/22 07/10/22 Unknown History tablet (Nitrostat) Pain hydroxyzine pamoate 25 mg capsule 25 mg PO TID PRN Anxiety #90 caps 05/05/22 07/10/22 Unknown Rx omeprazole 40 mg capsule,delayed 40 mg PO DAILY #90 caps 05/05/22 07/10/22 07/10/22 Rx release duloxetine 30 mg capsule,delayed 30 mg PO DAILY #90 caps 05/21/22 07/10/22 07/10/22 Rx release albuterol sulfate 2.5 mg/3 mL 2.5 mg (3 mL) inhalation Q4H PRN 06/07/22 07/10/22 Unknown Rx (0.083 %) solution for nebulization shortness of breath or wheezing #75 mL furosemide 40 mg tablet See Rx Instructions .Route 06/08/22 07/10/22 Unknown Rx .COMPLEX #60 tabs atorvastatin 40 mg tablet (Lipitor) 40 mg PO DAILY #90 tabs 06/25/22 07/10/22 07/09/22 Rx escitalopram oxalate 10 mg tablet 10 mg PO DAILY #90 tabs 06/28/22 07/10/22 07/10/22 Rx (Lexapro) metoprolol tartrate 25 mg tablet 25 mg PO BID #180 tabs 06/28/22 07/10/22 07/10/22 Rx oxycodone 30 mg tablet 30 mg PO QID PRN pain 30 days #120 06/28/22 07/10/22 Unknown Rx tabs aspirin 81 mg chewable tablet 81 mg PO DAILY 07/10/22 07/10/22 07/10/22 History cyanocobalamin (vitamin B-12) 500 500 mcg PO DAILY 07/10/22 07/10/22 07/10/22 History mcg tablet (Vitamin B-12) gabapentin 600 mg tablet 600 mg PO BID 07/10/22 07/10/22 07/09/22 History levofloxacin 500 mg tablet 500 mg PO DAILY 07/10/22 07/10/22 07/10/22 History morphine 100 mg tablet,extended 100 mg PO BID pain 07/10/22 07/10/22 07/09/22 History release Allergies Allergy/AdvReac Type Severity Reaction Status Date / Time phenytoin [From Dilantin] Allergy Mild Rash Verified 07/10/22 11:07 PFSH Acute PFSH: Medical History Anxiety and depression Chronic narcotic use Chronic pain of right knee COPD (chronic obstructive pulmonary disease) Degenerative arthritis Essential hypertension GERD (gastroesophageal reflux disease) Heart failure with preserved ejection fraction History of nonmelanoma skin cancer Hypertension Metabolic syndrome Oxygen dependent Pneumonia Sarcoma of right lower extremity Sleep apnea Surgical History H/O tubal ligation History of hernia repair History of partial hysterectomy History of surgery on lower extremity (02/14/20) 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 Bean History of total right hip arthroplasty Hx of appendectomy Family History Mother Family history of premature coronary artery disease Hypertension Brother Cancer Hypertension Sister Cancer Father Family history of premature coronary artery disease Hypertension Denies family history of Diabetes CAD (coronary artery disease) Clotting disorder Dementia Hyperlipidemia Psychiatric illness Chronic kidney disease (CKD) Suicide Anesthesia complication Bleeding disorder Lung disease Stroke Social History Smoking and tobacco status: former smoker (smoked x 40 years) Quit status (tobacco): has quit using tobacco Year quit tobacco: 2016 Former quit date comment: 2ppd x 36 years Second hand smoke exposure: No Alcohol intake: never Adopted: No Caregiver/support person: Yes Lives independently: Yes Marital status: Single Current occupational status: employed 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 Emesis Currently on IV fluids Abdomen soft nontender distended Right lower extremity pain Awake and alert Nonfocal neuro exam GCS 15 No audible stridor or wheezing Pleasant and cooperative S1, S2 Data 07/10/22 12:02 07/10/22 12:02 Micro: Microbiology 07/10/22 12:14 Blood Culture - Preliminary Blood SPECIMEN COLLECTED 07/10/22 12:02 Blood Culture - Preliminary Blood SPECIMEN COLLECTED A&P Assessment and plan (1) REINA (acute kidney injury): (2) Nausea and vomiting: (3) Pancytopenia due to chemotherapy: (4) Cancer related pain: (5) Anxiety and depression: (6) Conn syndrome: (7) YOLY on CPAP: (8) GERD with apnea: (9) Cancer related pain: (10) Oxygen dependent: (11) Essential hypertension: (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: Plan Chemotherapy related recurrent emesis Pleomorphic sarcoma, she is getting experimental chemotherapy at [facility] No active signs of colitis I will give her Zofran to alternate with Reglan and give 1 dose of Decadron Patient has been experiencing vomiting for quite some days Clinically dehydrated continue IV fluids [place] diet CT of abdomen pelvis showing mesenteric cyst, hilar lymphadenopathy, vascular congestion Monitor closely any signs of worsening of shortness of breath she uses CPAP at night for sleep apnea REINA related to dehydration continue IV fluid monitor kidney function urine output Opiate dependent, cancer related pain Patient is without fentanyl morphine every 6-8 hours Pancytopenia chemotherapy related Monitor for now patient has received Neulasta She follows up with Dr. Maria now Full code [place] diet DVT prophylaxis contraindicated due to thrombocytopenia SCDs for now Attestations Medical Necessity Statement*: Anticipating discharge once emesis improved within 48 hours Coding Level of Care Code 91912 Diagnoses REINA (acute kidney injury) N17.9 Nausea and vomiting R11.2 Pancytopenia due to chemotherapy D61.810 Cancer related pain G89.3 Anxiety and depression F41.9; F32.9 Conn syndrome E26.01 YOLY on CPAP G47.33; Z99.89 GERD with apnea K21.9; R06.81 Cancer related pain G89.3 Oxygen dependent Z99.81 Essential hypertension I10 Undifferentiated pleomorphic sarcoma C49.9
[2022-07-10] MEDS: sodium chloride 0.9% 1,000 ML 75 ML IV (16:22)
[2022-07-10 17:31] LABS: Vitamin B12 > 2000 pg/mL (232-1245)
[2022-07-10 20:28] VITALS: RESP 16
[2022-07-10] MEDS: gabapentin 300 mg Capsule 600 MG PO (20:28)
[2022-07-10] MEDS: morphine ER (12 HR) 100 mg Tablet PO (20:28)
[2022-07-10] MEDS: dexamethasone 4 mg/mL INJ IVP (20:28)
[2022-07-10 22:27] LABS: Glucose Point of Care 120 mg/dL (70-110)
[2022-07-10] MEDS: metoclopramide 5 mg/mL SDV 2 mL IVP (22:38)
[2022-07-11] VITALS (11 sets, daily range): BP systolic 111–127; BP diastolic 62–74; PULSE 74–89; RESP 14–18; TEMP 36.5–36.8; O2SAT 91–94
[2022-07-11] MEDS: morphine ER (12 HR) 100 mg Tablet PO ×3 (04:53→20:26)
[2022-07-11] MEDS: ondansetron 2 mg/ML SDV 2 mL 4 MG IVP ×3 (04:54→18:01)
[2022-07-11 05:31] LABS: Basophils % 0.8 %; Hematocrit 30.2 % (37.0-47.0); Hemoglobin 9.3 g/dL (11.5-15.3); Lymphocytes # 0.3 10^3/uL (0.8-4.8); Mean Corpuscular HGB Conc 30.8 g/dL (30.0-36.0); Mean Corpuscular Hemoglobin 28.7 pg (28.0-34.0); Mean Corpuscular Volume 93.2 fl (81-99); Mean Platelet Volume 9.7 fL (7.4-10.4); Monocytes # 0.1 10^3/uL (0.2-0.9); Monocytes % 4.2 %; Neutrophils % 47.5 %; Nucleated Red Blood Cells % 0 %; Red Blood Count 3.24 10^6/uL (4.1-5.3); Red Cell Distribution Width 14.5 % (12.1-15.1); White Blood Count 1.2 10^3/uL (4.0-10.0)
[2022-07-11 05:47] LABS: Anion Gap 12.3 (5-19); Blood Urea Nitrogen 17 mg/dL (8-23); C Reactive Protein 27.9 mg/L (0.0-4.9); Calcium 7.4 mg/dL (8.5-10.5); Carbon Dioxide 25 mmol/L (22-29); Chloride 103 mmol/L (98-107); Glomerular Filtration Rate 55.5 mL/min (90-130); Glucose 130 mg/dL (65-115); Magnesium 1.7 mg/dL (1.7-2.3); Osmolality Calculated 283 mOsm/kg (285-295); Phosphorus 2.9 mg/dL (2.5-4.5); Potassium 5.3 mmol/L (3.5-5.1); Sodium 135 mmol/L (136-145)
[2022-07-11 06:04] LABS: Neutrophils # 0.56 10^3/uL (1.8-7.7); Platelet Count 17 10^3/cmm (130-400)
[2022-07-11 06:54] LABS: Glucose Point of Care 130 mg/dL (70-110)
[2022-07-11] MEDS: duloxetine 30 mg Capsule PO (09:02)
[2022-07-11] MEDS: levoFLOXacin 500 mg Tablet PO (09:02)
[2022-07-11] MEDS: gabapentin 300 mg Capsule 600 MG PO ×3 (09:02→20:26)
[2022-07-11] MEDS: pantoprazole DR 40 mg Tablet PO (09:02)
[2022-07-11] MEDS: metoclopramide 5 mg/mL SDV 2 mL IVP ×2 (09:03→14:04)
[2022-07-11] MEDS: sodium chloride 0.9% 1,000 ML 50 ML IV (09:03)
--- NOTE | 2022-07-11 12:50 | PM.PN ---
Subjective Subjective: This morning I requested irradiated transfuse platelets Patient is upset because she did not get pain meds at the time She had 1 episode of nausea and small quantity emesis, she was able to tolerate breakfast able to keep liquids down I have informed charge nurse that patient is upset and she is requesting pain meds on discharge time she does have leg sarcoma which is very painful for her Vitals/I&O/Wt Last Vital Signs Temp 97.7 F 07/11/22 12:00 Pulse 89 07/11/22 12:00 Resp 15 07/11/22 12:00 BP 116/67 07/11/22 12:00 Pulse Ox 92 07/11/22 12:00 O2 Del Method 07/11/22 08:00 O2 Flow Rate 2.5 07/11/22 00:09 07/10/22 07/11/22 07/11/22 22:59 06:59 14:59 Intake Total 355 / 1355 1110.833 / 1110.833 Output Total 1400 / 1400 400 / 1800 Balance -1045 / -45 -400 / -445 1110.833 / 1110.833 Weight last 48 hrs Weight 81.647 kg Physical Exam Narrative: Patient is dehydrated Currently awake and alert In distress GCS 15 No active emesis Nonfocal neuro exam No signs of meningitis Family at the bedside Abdomen soft Right leg pain Currently on room air Pleasant during my evaluation No audible stridor or wheezing On 1.5 L of oxygen Urinary Catheter Management: Stewart: Cath Placed During This Visit: yes Reason for Continuing Indwelling Catheter: Acute Urinary Retention or Obstruction Urinary Catheter Date of Insertion: 07/10/22 Urinary Catheter Time of Insertion: 16:26 Data 07/11/22 05:09 07/11/22 05:09 Micro: Microbiology 07/10/22 12:14 Blood Culture - Preliminary Blood NEGATIVE TO DATE 07/10/22 12:02 Blood Culture - Preliminary Blood NEGATIVE TO DATE 07/10/22 12:51 Urine Culture - Preliminary Urine,Clean Catch A&P Assessment and plan (1) REINA (acute kidney injury): (2) Nausea and vomiting: (3) Pancytopenia due to chemotherapy: (4) Cancer related pain: (5) CAD (coronary artery disease): (6) Anxiety and depression: (7) Conn syndrome: (8) YOLY on CPAP: (9) Undifferentiated pleomorphic sarcoma: (10) Essential hypertension: (11) Oxygen dependent: (12) Cancer related pain: (13) GERD with apnea: Plan Chemotherapy-induced nausea Nausea somewhat better as compared to yesterday Continue IV fluids She will get Zofran to be alternated with Reglan every 4 hours I would not repeat Decadron REINA related to dehydration: Resolved Cancer related right leg pain she is getting morphine and gabapentin every 8 hours on as-needed basis Pancytopenia related to chemotherapy We will give her 1 unit of platelets Patient has received Neulasta Afebrile Continue Levaquin Opiate dependent related to cancer related pain Full code [place] diet Attestations Medical Necessity Statement*: Discharge tomorrow if tolerating diet and Moderate Time for a total of 40 minutes, includes reviewing past or interval history, examining/interviewing patient, placing orders, counseling patient/family/other support, updating patient/family/other support, discussing plan of care with staff, documenting encounter and coordinating care Diagnoses REINA (acute kidney injury) N17.9 Nausea and vomiting R11.2 Pancytopenia due to chemotherapy D61.810 Cancer related pain G89.3 CAD (coronary artery disease) I25.10 Anxiety and depression F41.9; F32.9 Conn syndrome E26.01 YOLY on CPAP G47.33; Z99.89 Undifferentiated pleomorphic sarcoma C49.9 Essential hypertension I10 Oxygen dependent Z99.81 Cancer related pain G89.3 GERD with apnea K21.9; R06.81
[2022-07-11] MEDS: acetaminophen 500 mg Tablet PO (14:05)
[2022-07-12] VITALS (9 sets, daily range): BP systolic 102–127; BP diastolic 61–76; PULSE 71–87; RESP 15–18; TEMP 36.5–36.7; O2SAT 93–96
[2022-07-12] MEDS: acetaminophen 500 mg Tablet PO (00:52)
[2022-07-12] MEDS: morphine ER (12 HR) 100 mg Tablet PO ×2 (04:04→11:55)
[2022-07-12 05:12] LABS: Hematocrit 27.1 % (37.0-47.0); Hemoglobin 8.7 g/dL (11.5-15.3); Lymphocytes # 0.5 10^3/uL (0.8-4.8); Mean Corpuscular HGB Conc 32.1 g/dL (30.0-36.0); Mean Corpuscular Hemoglobin 29.3 pg (28.0-34.0); Mean Corpuscular Volume 91.2 fl (81-99); Mean Platelet Volume 11.5 fL (7.4-10.4); Monocytes # 0.1 10^3/uL (0.2-0.9); Monocytes % 7.3 %; Neutrophils # 1.24 10^3/uL (1.8-7.7); Neutrophils % 64.7 %; Nucleated Red Blood Cells % 0 %; Platelet Count 33 10^3/cmm (130-400); Red Blood Count 2.97 10^6/uL (4.1-5.3); Red Cell Distribution Width 14.5 % (12.1-15.1); White Blood Count 1.9 10^3/uL (4.0-10.0)
[2022-07-12 05:30] LABS: Blood Urea Nitrogen 21 mg/dL (8-23); Calcium 7.7 mg/dL (8.5-10.5); Carbon Dioxide 26 mmol/L (22-29); Chloride 103 mmol/L (98-107); Glomerular Filtration Rate 49.7 mL/min (90-130); Glucose 127 mg/dL (65-115); Osmolality Calculated 287 mOsm/kg (285-295); Sodium 136 mmol/L (136-145)
--- NOTE | 2022-07-12 06:37 | PM.DCS ---
Discharge Providers Date of Admission: 07/10/22 16:06 Date of Discharge: July 12, 2022 Attending Provider at Admission: Agustin Hernandez MD Attending Provider at Discharge: Agustin Hernandez MD Primary Care Provider: Cyril Ramsey MD Diagnoses at Discharge Discharge Diagnosis (1) REINA (acute kidney injury): Status: Acute (2) Nausea and vomiting: Status: Acute (3) Pancytopenia due to chemotherapy: Status: Acute (4) Cancer related pain: Status: Acute (5) CAD (coronary artery disease): Status: Acute (6) Anxiety and depression: Status: Chronic (7) Conn syndrome: Status: Acute (8) YOLY on CPAP: Status: Chronic (9) Undifferentiated pleomorphic sarcoma: Status: Acute (10) Essential hypertension: Status: Acute (11) Oxygen dependent: Status: Chronic (12) Cancer related pain: Status: Acute (13) GERD with apnea: Status: Acute Reason for Visit Reason for Visit: Abnormal labs, trouble speaking Hospital Course Hospital Course 67-year-old female who has history of pleomorphic sarcoma right leg, recently started chemotherapy at [place], 24 to 48 hours after chemotherapy she started experiencing intractable emesis for which she decided to come to the hospital, she was diagnosed with pancytopenia, she has received Neulasta with her chemotherapy, she was given 1 unit of platelets during hospitalization, no active bleeding, her emesis stopped with use of IV Reglan and Zofran, please note she is opioid dependent because of her cancer related pain and requires gabapentin and morphine every 8 hours. I will ask her to follow-up with Dr. Maria, neutropenia improving, hemoglobin stable, platelet count 30+ thousand, christen 17,000. No bleeding. She continued her Levaquin p.o. regimen, she remained afebrile. No signs of colitis, CT abdomen pelvis ? Interval development of mild-moderate mediastinal and bilateral hilar lymphadenopathy which in view of patient's history is presumed metastatic in nature. 2. ? Findings suspicious for superimposed CHF. 3. ? Multiple subacute left rib fractures. ? ? IMPRESSION: 1. ? 5 cm confluent dewey mass right groin site that has undergone cystic degeneration and mild increased in size from previous exam. 2. ? Stable 5 cm mesenteric cyst within the mid abdomen possibly benign. 3. ? Bilateral renal cysts too which arising left kidney cannot be resolved as benign cyst on this exam. Recommend nonemergent follow-up renal ultrasound further assessment. 4. ? Stable bilateral adrenal lesions largest of which measures 5 cm, indeterminate. 5. ? Additional nonemergent findings as above. Physical Exam Urinary Catheter Management: Stewart: Cath Placed During This Visit: yes Reason for Continuing Indwelling Catheter: Acute Urinary Retention or Obstruction Urinary Catheter Date of Insertion: 07/10/22 Urinary Catheter Time of Insertion: 16:26 Discharge Data Studies Completed and Pending Completed Studies During Hospitalization Category Date Time Status CT chest abdomen pelvis [CT chest abdpel w/*[id number] Cat Scan 07/10/22 13:02 Completed ] Stat CT head wo con* [id number] Stat Cat Scan 07/10/22 11:29 Completed Pending at discharge Category Date Time Status Blood Culture Stat Lab 07/10/22 12:14 Results Urine Culture Stat Lab 07/10/22 12:51 Results Radiology Impressions Head CT 07/10/22 11:29 IMPRESSION: No acute intracranial abnormality. Chest/Abdomen/Pelvis CT 07/10/22 13:02 IMPRESSION: 1. Interval development of mild-moderate mediastinal and bilateral hilar lymphadenopathy which in view of patient's history is presumed metastatic in nature. 2. Findings suspicious for superimposed CHF. 3. Multiple subacute left rib fractures. IMPRESSION: 1. 5 cm confluent dewey mass right groin site that has undergone cystic degeneration and mild increased in size from previous exam. 2. Stable 5 cm mesenteric cyst within the mid abdomen possibly benign. 3. Bilateral renal cysts too which arising left kidney cannot be resolved as benign cyst on this exam. Recommend nonemergent follow-up renal ultrasound further assessment. 4. Stable bilateral adrenal lesions largest of which measures 5 cm, indeterminate. 5. Additional nonemergent findings as above. Laboratory Results WBC 1.9 10^3/uL (4.0-10.0) L 07/12/22 05:00 RBC 2.97 10^6/uL (4.1-5.3) L 07/12/22 05:00 Hgb 8.7 g/dL (11.5-15.3) L 07/12/22 05:00 Hct 27.1 % (37.0-47.0) L 07/12/22 05:00 MCV 91.2 fl (81-99) 07/12/22 05:00 MCH 29.3 pg (28.0-34.0) 07/12/22 05:00 MCHC 32.1 g/dL (30.0-36.0) 07/12/22 05:00 RDW 14.5 % (12.1-15.1) 07/12/22 05:00 Plt Count 33 10^3/cmm (130-400) L D 07/12/22 05:00 MPV 11.5 fL (7.4-10.4) H 07/12/22 05:00 Neut % (Auto) 64.7 % 07/12/22 05:00 Lymph % (Auto) 26.0 % 07/12/22 05:00 [place] % (Auto) 7.3 % 07/12/22 05:00 Eos % (Auto) 0.0 % 07/12/22 05:00 Baso % (Auto) 1.0 % 07/12/22 05:00 Neut # (Auto) 1.24 10^3/uL (1.8-7.7) L 07/12/22 05:00 Lymph # (Auto) 0.5 10^3/uL (0.8-4.8) L 07/12/22 05:00 [place] # (Auto) 0.1 10^3/uL (0.2-0.9) L 07/12/22 05:00 Eos # (Auto) 0.0 10^3/uL (0.0-0.8) 07/12/22 05:00 Baso # (Auto) 0.0 10^3/uL (0.0-0.1) 07/12/22 05:00 Nucleated RBC % (auto) 0 % 07/12/22 05:00 Nucleated RBCs # 0.0 /100WBC 07/12/22 05:00 Sodium 136 mmol/L (136-145) 07/12/22 05:00 Potassium 5.0 mmol/L (3.5-5.1) 07/12/22 05:00 Chloride 103 mmol/L (98-107) 07/12/22 05:00 Carbon Dioxide 26 mmol/L (22-29) 07/12/22 05:00 Anion Gap 12.0 (5-19) 07/12/22 05:00 BUN 21 mg/dL (8-23) 07/12/22 05:00 Creatinine 1.1 mg/dL (0.5-0.9) H 07/12/22 05:00 GFR Calculation 49.7 mL/min (90-130) L 07/12/22 05:00 Glucose 127 mg/dL (65-115) H 07/12/22 05:00 POC Glucose 130 mg/dL (70-110) H 07/11/22 06:46 Calculated Osmolality 287 mOsm/kg (285-295) 07/12/22 05:00 Lactic Acid 0.7 mmol/L (0.5-2.2) 07/10/22 12:02 Calcium 7.7 mg/dL (8.5-10.5) L 07/12/22 05:00 Phosphorus 2.9 mg/dL (2.5-4.5) 07/11/22 05:09 Magnesium 1.7 mg/dL (1.7-2.3) 07/11/22 05:09 Total Bilirubin 0.6 mg/dL (0.15-1.2) 07/10/22 12:02 AST 65 U/L (0-32) H 07/10/22 12:02 ALT 177 U/L (0-33) H 07/10/22 12:02 Alkaline Phosphatase 118 U/L (35-105) H 07/10/22 12:02 C-Reactive Protein 27.9 mg/L (0.0-4.9) H 07/11/22 05:09 Total Protein 5.2 g/dL (6.6-8.7) L 07/10/22 12:02 Albumin 2.7 g/dL (3.5-5.2) L 07/10/22 12:02 Globulin 2.5 g/dL (1.3-4.6) 07/10/22 12:02 Vitamin B12 > 2000 pg/mL (232-1245) H 07/10/22 12:02 Procalcitonin 0.30 ng/mL (0-0.5) 07/10/22 12:02 TSH 0.72 uIU/mL (0.27-4.20) 07/10/22 12:02 Urine Color Dark yellow (Yellow) 07/10/22 12:51 Urine Appearance Clear (CLEAR) 07/10/22 12:51 Urine pH 5 (5-7) 07/10/22 12:51 Ur Specific [place] 1.015 (1.005-1.030) 07/10/22 12:51 Urine Protein Trace (Negative) 07/10/22 12:51 Urine Glucose (UA) Norm (Normal) 07/10/22 12:51 Urine Ketones Negative (Negative) 07/10/22 12:51 Urine Blood Neg (Negative) 07/10/22 12:51 Urine Nitrate Negative (Negative) 07/10/22 12:51 Urine Bilirubin Neg (Negative) 07/10/22 12:51 Urine Urobilinogen Norm mg/dL (Negative) 07/10/22 12:51 Ur Leukocyte Esterase Negative (Negative) 07/10/22 12:51 Urine RBC None /hpf (0-2) 07/10/22 12:51 Urine WBC 10-15 /hpf (0-5) H 07/10/22 12:51 Ur Squamous Epith Cells 10-15 /hpf (0-5) H 07/10/22 12:51 Amorphous Sediment Not Reportable 07/10/22 12:51 Urine Bacteria 1+ /hpf (NONE) H 07/10/22 12:51 Coronavirus 229E (PCR) Not detected (NOT DETECT) 07/10/22 12:51 SARS-CoV-2 (PCR) Not detected (NOT DETECT) 07/10/22 12:51 Blood Type A Positive 07/10/22 12:02 Rho(D) Type Positive 07/10/22 12:02 PEG Antibody Screen Negative 07/10/22 12:02 Vitals Last Vital Signs Temp 97.7 F 07/12/22 04:00 Pulse 76 07/12/22 04:00 Resp 16 07/12/22 04:04 BP 127/74 07/12/22 04:00 Pulse Ox 96 07/12/22 04:00 O2 Del Method 07/12/22 04:00 O2 Flow Rate 2 07/12/22 04:00 Discharge Plan Discharge Patient Disposition: Home Condition: Stable Prescriptions: New ondansetron HCl 4 mg tablet 4 mg PO DAILY Qty: 30 0RF Continued albuterol sulfate [Ventolin HFA] 90 mcg/actuation HFA aerosol inhaler 2 puff INHALATION Q6H PRN (Reason: Shortness Of Breath) Qty: 8.5 0RF duloxetine 30 mg capsule,delayed release(DR/EC) 30 mg PO DAILY Qty: 90 1RF albuterol sulfate 2.5 mg /3 mL (0.083 %) solution for nebulization 2.5 mg inhalation Q4H PRN (Reason: shortness of breath or wheezing) Qty: 75 0RF omeprazole 40 mg capsule,delayed release(DR/EC) 40 mg PO DAILY Qty: 90 1RF hydroxyzine pamoate 25 mg capsule 25 mg PO TID PRN (Reason: Anxiety) Qty: 90 0RF metoprolol tartrate 25 mg tablet 25 mg PO BID Qty: 180 1RF escitalopram oxalate [Lexapro] 10 mg tablet 10 mg PO DAILY Qty: 90 1RF oxycodone 30 mg tablet 30 mg PO QID PRN (Reason: pain) 30 Days Qty: 120 0RF nitroglycerin [Nitrostat] 0.4 mg Tablet, Sublingual 0.4 mg SUBLINGUAL Q5M PRN (Reason: Chest Pain) Rx Instructions: do not exceed 3 doses per episode levofloxacin 500 mg tablet 500 mg PO DAILY gabapentin 600 mg tablet 600 mg PO BID morphine 100 mg tablet extended release 100 mg PO BID Vitamin B-12 500 mcg Tablet 500 mcg PO DAILY aspirin 81 mg Tablet,Chewable 81 mg PO DAILY Held furosemide 40 mg tablet See Rx Instructions .ROUTE .COMPLEX Qty: 60 0RF Hold Instructions: Resume on 05/07/22. HOLD UNTIL LASIX 20MG IS COMPLETED Dose Instruction: TAKE 1 TO 2 TABLETS BY MOUTH DAILY NEEDED FOR SWELLING Rx Instructions: TAKE 1 TO 2 TABLETS BY MOUTH DAILY NEEDED FOR SWELLING atorvastatin [Lipitor] 40 mg tablet 40 mg PO DAILY Qty: 90 1RF Hold Instructions: Resume on 07/19/22. Discharge Orders: Discharge Order (Routine); Ordered 07/12/22 Ordered By: Agustin Hernandez Referrals: Cyril Ramsey MD [Primary Care Provider] - Discharge Diet: Regular Patient Instructions: Opioid Safety Discharge Attestations Time Spent in Discharge Care*: less than 30 min Quality Metrics Clinical Quality Measures [ No reported AMI, CVA or VTE this stay] Coding Level of Care Code Acute Code for Chg Fwd Diagnoses REINA (acute kidney injury) N17.9 Nausea and vomiting R11.2 Pancytopenia due to chemotherapy D61.810 Cancer related pain G89.3 CAD (coronary artery disease) I25.10 Anxiety and depression F41.9; F32.9 Conn syndrome E26.01 YOLY on CPAP G47.33; Z99.89 Undifferentiated pleomorphic sarcoma C49.9 Essential hypertension I10 Oxygen dependent Z99.81 Cancer related pain G89.3 GERD with apnea K21.9; R06.81
[2022-07-12] MEDS: levoFLOXacin 500 mg Tablet PO (09:54)
[2022-07-12] MEDS: gabapentin 300 mg Capsule 600 MG PO ×2 (09:54→15:41)
[2022-07-12] MEDS: duloxetine 30 mg Capsule PO (09:54)
[2022-07-12] MEDS: pantoprazole DR 40 mg Tablet PO (09:54)
== END 2022-07-12 16:30 | disposition home or self-care (01) ==
LOC: ER 14:47 → MEDSURG 07-11 07:17
PROVIDERS: Admitting Provider Internal Medicine; Emergency Provider Emergency Medicine; PCP Family Medicine; Visit Provider Internal Medicine
DX: N17.9 Acute kidney failure, unspecified (principal); R11.2 Nausea with vomiting, unspecified; C49.9 Malignant neoplasm of connective and soft tissue, unspecified; D61.810 Antineoplastic chemotherapy induced pancytopenia; G89.3 Neoplasm related pain (acute) (chronic); I25.10 Atherosclerotic heart disease of native coronary artery without angina pectoris; F41.9 Anxiety disorder, unspecified; F32.9 Major depressive disorder, single episode, unspecified; E26.01 Conn's syndrome; G47.33 Obstructive sleep apnea (adult) (pediatric); Z99.89 Dependence on other enabling machines and devices; I10 Essential (primary) hypertension; Z99.81 Dependence on supplemental oxygen; K21.9 Gastro-esophageal reflux disease without esophagitis; Z79.891 Long term (current) use of opiate analgesic; Z79.82 Long term (current) use of aspirin; M19.90 Unspecified osteoarthritis, unspecified site; J44.9 Chronic obstructive pulmonary disease, unspecified; Z87.891 Personal history of nicotine dependence
CPT/HCPCS: 36415; 36416; 36430; 36591; 51702; 70450; 71260; 74177; 80048; 80053; 81001; 82607; 82962; 83605; 83735; 84100; 84145; 84443; 85025; 86140; 86850; 86900; 87040; 87086; 87635; 96374; 96375; 96376; 99285; G0378; J0692; J1100; J2405; J2765; J7030; P9037; Q9967

== ENCOUNTER 2022-07-19 09:00 | Oncology outpatient (recurring) (ONCR) | payer MEDICARE, SELFPAY ==
[2022-07-14] MEDS: sodium chloride 0.9% 1,000 ML 999 ML IV (10:38)
[2022-07-14 11:00] LABS: Basophils % 0.6 %; Hematocrit 27.5 % (37.0-47.0); Hemoglobin 8.7 g/dL (11.5-15.3); Lymphocytes # 0.8 10^3/uL (0.8-4.8); Lymphocytes % 50.6 %; Mean Corpuscular HGB Conc 31.6 g/dL (30.0-36.0); Mean Corpuscular Hemoglobin 29.8 pg (28.0-34.0); Mean Corpuscular Volume 94.2 fl (81-99); Mean Platelet Volume 10.5 fL (7.4-10.4); Monocytes # 0.1 10^3/uL (0.2-0.9); Monocytes % 7.3 %; Neutrophils % 40.9 %; Nucleated Red Blood Cells % 0 %; Red Blood Count 2.92 10^6/uL (4.1-5.3); Red Cell Distribution Width 14.7 % (12.1-15.1); White Blood Count 1.6 10^3/uL (4.0-10.0)
[2022-07-14 11:05] LABS: Alanine Aminotransferase 72 U/L (0-33); Albumin Level 2.7 g/dL (3.5-5.2); Alkaline Phosphatase 111 U/L (35-105); Anion Gap 10.8 (5-19); Aspartate Amino Transferase 44 U/L (0-32); Blood Urea Nitrogen 21 mg/dL (8-23); Calcium 7.4 mg/dL (8.5-10.5); Carbon Dioxide 26 mmol/L (22-29); Chloride 102 mmol/L (98-107); Globulin 2.2 g/dL (1.3-4.6); Glomerular Filtration Rate 49.7 mL/min (90-130); Glucose 111 mg/dL (65-115); Osmolality Calculated 282 mOsm/kg (285-295); Potassium 4.8 mmol/L (3.5-5.1); Sodium 134 mmol/L (136-145); Total Bilirubin 0.4 mg/dL (0.15-1.2); Total Protein 4.9 g/dL (6.6-8.7)
[2022-07-14 11:18] LABS: Neutrophils # 0.67 10^3/uL (1.8-7.7); Platelet Count 13 10^3/cmm (130-400); Slide Review Slide Review Perform
[2022-07-14 12:10] VITALS: BP 105/62; PULSE 70; RESP 18; TEMP 36.2; O2SAT 97
[2022-07-15] MEDS: sodium chloride 0.9% 1,000 ML 999 ML IV (09:25)
[2022-07-15 09:49] VITALS: BP 101/48; PULSE 84; RESP 18; TEMP 36.3; O2SAT 95
[2022-07-15 10:00] VITALS: BP 101/48; PULSE 84; RESP 18; TEMP 36.3; O2SAT 95
[2022-07-15 10:04] VITALS: BP 112/58; PULSE 84; RESP 17; TEMP 36.9; O2SAT 90
[2022-07-19] VITALS (11 sets, daily range): BP systolic 94–149; BP diastolic 58–87; PULSE 85–102; RESP 18; TEMP 35.7–37.1; O2SAT 91–99
[2022-07-19] MEDS: sodium chloride 0.9% 1,000 ML 500 ML IV (09:41)
[2022-07-19 09:45] LABS: Hematocrit 24.9 % (37.0-47.0); Hemoglobin 7.8 g/dL (11.5-15.3); Lymphocytes # 0.7 10^3/uL (0.8-4.8); Lymphocytes % 63.7 %; Mean Corpuscular HGB Conc 31.3 g/dL (30.0-36.0); Mean Corpuscular Hemoglobin 28.8 pg (28.0-34.0); Mean Corpuscular Volume 91.9 fl (81-99); Mean Platelet Volume 10.9 fL (7.4-10.4); Monocytes # 0.1 10^3/uL (0.2-0.9); Monocytes % 8.8 %; Neutrophils % 25.7 %; Nucleated Red Blood Cells % 0 %; Red Blood Count 2.71 10^6/uL (4.1-5.3); Red Cell Distribution Width 14.3 % (12.1-15.1); White Blood Count 1.1 10^3/uL (4.0-10.0)
[2022-07-19 10:43] LABS: Neutrophils # 0.29 10^3/uL (1.8-7.7); Platelet Count 12 10^3/cmm (130-400); Slide Review Slide Review Perform
[2022-07-19] MEDS: diphenhydrAMINE 25 mg Capsule PO (11:34)
[2022-07-19] MEDS: acetaminophen 325 mg Tablet 650 MG PO (11:34)
[2022-07-19] MEDS: ondansetron 4 MG Tablet 8 MG PO (12:15)
[2022-07-19] MEDS: FUROsemide 10 mg/mL SDV 2mL 20 MG IVP (13:19)
== END 2022-08-13 23:59 | disposition home or self-care (01) ==
PROVIDERS: PCP Family Medicine; Visit Provider Internal Medicine Medical Oncology
DX: C49.21 Malignant neoplasm of connective and soft tissue of right lower limb, including hip (principal); C77.4 Secondary and unspecified malignant neoplasm of inguinal and lower limb lymph nodes; C78.02 Secondary malignant neoplasm of left lung; Z79.899 Other long term (current) drug therapy; Z87.891 Personal history of nicotine dependence
CPT/HCPCS: 36430; 80053; 85025; 86850; 86900; 86920; 96360; 96361; 96374; 96375; J1940; J7030; P9037; P9040; Q0162

== ENCOUNTER 2022-07-23 10:02 | Outpatient (CLI) | payer MEDICARE, SELFPAY ==
[2022-07-23 11:12] LABS: Hematocrit 31.3 % (37.0-47.0); Hemoglobin 9.8 g/dL (11.5-15.3); Lymphocytes # 0.6 10^3/uL (0.8-4.8); Lymphocytes % 57.3 %; Mean Corpuscular HGB Conc 31.3 g/dL (30.0-36.0); Mean Corpuscular Hemoglobin 29.2 pg (28.0-34.0); Mean Corpuscular Volume 93.2 fl (81-99); Mean Platelet Volume 9.9 fL (7.4-10.4); Monocytes # 0.2 10^3/uL (0.2-0.9); Monocytes % 14.6 %; Neutrophils % 27.1 %; Nucleated Red Blood Cells % 0 %; Platelet Count 39 10^3/cmm (130-400); Red Blood Count 3.36 10^6/uL (4.1-5.3); Red Cell Distribution Width 14.3 % (12.1-15.1)
[2022-07-23 11:32] LABS: Alanine Aminotransferase 18 U/L (0-33); Albumin Level 2.7 g/dL (3.5-5.2); Alkaline Phosphatase 101 U/L (35-105); Anion Gap 10.7 (5-19); Aspartate Amino Transferase 29 U/L (0-32); Blood Urea Nitrogen 6 mg/dL (8-23); Calcium 7.5 mg/dL (8.5-10.5); Carbon Dioxide 33 mmol/L (22-29); Chloride 99 mmol/L (98-107); Globulin 2.5 g/dL (1.3-4.6); Glomerular Filtration Rate 71.8 mL/min (90-130); Glucose 103 mg/dL (65-115); Osmolality Calculated 286 mOsm/kg (285-295); Potassium 3.7 mmol/L (3.5-5.1); Sodium 139 mmol/L (136-145); Total Bilirubin 0.5 mg/dL (0.15-1.2); Total Protein 5.2 g/dL (6.6-8.7)
[2022-07-23 11:55] LABS: Neutrophils # 0.28 10^3/uL (1.8-7.7)
[2022-07-23 11:56] LABS: Slide Review Slide Review Perform
== END 2022-07-23 10:03 | disposition home or self-care (01) ==
LOC: LAB 10:10
PROVIDERS: PCP Family Medicine; Visit Provider Family Medicine
DX: D69.6 Thrombocytopenia, unspecified (principal)
CPT/HCPCS: 80053; 85025

== ENCOUNTER 2022-08-27 06:59 | Outpatient (CLI) | payer MEDICARE, SELFPAY ==
--- NOTE | 2022-08-27 07:00 | US_ITS ---
WS: [id number] ULTRASOUND SOFT TISSUES LEFT upper extremity. HISTORY: hematoma vs clot COMPARISON: None available. TECHNIQUE: 2-D and color Doppler imaging is submitted. Ultrasound directed to the LEFT upper extremity. In the region of the palpable abnormality no soft ti ssue abnormalities are identified. There is no fluid collection. No soft tissue mass. US/US soft tissue/extremity [id number] IMPRESSION: Negative soft tissue ultrasound LEFT upper extremity.
== END 2022-08-27 07:00 | disposition home or self-care (01) ==
LOC: RAD 07:02
PROVIDERS: PCP Family Medicine; Visit Provider Family Medicine
DX: S46.192A Other injury of muscle, fascia and tendon of long head of biceps, left arm, initial encounter (principal); X58.XXXA Exposure to other specified factors, initial encounter
CPT/HCPCS: 76882

== ENCOUNTER 2022-10-20 10:32 | Outpatient (CLI) | payer MEDICARE, SELFPAY ==
[2022-10-20 11:27] LABS: Basophils % 0.6 %; Eosinophils # 0.1 10^3/uL (0.0-0.8); Eosinophils % 1.2 %; Lymphocytes # 1.5 10^3/uL (0.8-4.8); Lymphocytes % 30.2 %; Mean Corpuscular HGB Conc 31.4 g/dL (30.0-36.0); Mean Corpuscular Hemoglobin 31.7 pg (28.0-34.0); Mean Corpuscular Volume 100.9 fl (81-99); Mean Platelet Volume 9.2 fL (7.4-10.4); Monocytes # 0.5 10^3/uL (0.2-0.9); Monocytes % 10.5 %; Neutrophils # 2.82 10^3/uL (1.8-7.7); Neutrophils % 56.9 %; Nucleated Red Blood Cells % 0 %; Platelet Count 213 10^3/cmm (130-400); Red Blood Count 3.47 10^6/uL (4.1-5.3); Red Cell Distribution Width 14.2 % (12.1-15.1)
== END 2022-10-20 10:33 | disposition home or self-care (01) ==
PROVIDERS: PCP Family Medicine; Visit Provider Family Medicine
DX: D69.6 Thrombocytopenia, unspecified (principal)
CPT/HCPCS: 81000; 85025

== ENCOUNTER → 2022-11-05 10:11 | Outpatient (BNVA) | payer MEDICARE, SELFPAY | PROVIDERS: PCP Family Medicine; Visit Provider Internal Medicine | DX: I11.0 Hypertensive heart disease with heart failure (principal); I50.30 Unspecified diastolic (congestive) heart failure; R07.9 Chest pain, unspecified; R06.02 Shortness of breath; C49.21 Malignant neoplasm of connective and soft tissue of right lower limb, including hip; F41.9 Anxiety disorder, unspecified; F32.9 Major depressive disorder, single episode, unspecified; G47.33 Obstructive sleep apnea (adult) (pediatric); Z99.89 Dependence on other enabling machines and devices; Z87.891 Personal history of nicotine dependence | CPT/HCPCS: 80048; 83880; 99214 ==

== ENCOUNTER 2022-11-19 07:08 | Outpatient (CLI) | payer MEDICARE, SELFPAY ==
--- NOTE | 2022-11-19 | USCV_ITS ---
Dennise Funes Age: 67 Gender: F : 1955 Exam Date: 11/19/2022 07:21 Ordering Phys: Pawan Staton M.D ([email or web address]) Technologist: [place] [facility] [place]: sob, cp BP: 125 / 80 HR: 75 Rhythm: Sinus Technical Quality: Adequate MEASUREMENTS (Male / Female) Normal Values 2D ECHO LV Diastolic Diameter PLAX 4.4 cm 4.2 - 5.9 / 3.9 - 5.3 cm LV Systolic Diameter PLAX 3.3 cm LV Chamber Size 5.3 cm IVS Diastolic Thickness 1.2 cm 0.6 - 1.0 / 0.6 - 0.9 cm IVS Systolic Thickness 1.8 cm LVPW Diastolic Thickness 1.0 cm 0.6 - 1.0 / 0.6 - 0.9 cm LVPW Systolic Thickness 1.1 cm RV Chamber Size 4.1 cm LVOT Diameter 2.2 cm LV Ejection Fraction 2D Teich 50.8 % LV Ejection Fraction MOD 2C 39.7 % LV Ejection Fraction 2C AL 39.1 % LA Diameter 3.5 cm LA Width 5.2 cm LA Height 4.5 cm RA Width 3.6 cm RA Height 4.5 cm Aorta at Sinotubular Diameter 2.4 cm IVC Diameter 1.5 cm M-MODE Aortic Annulus Diameter 3.1 cm LA Ao Ratio MM 1.3 MV E Point Septal Separation 1.0 cm DOPPLER AV Peak Velocity 163.0 cm/s LVOT Peak Velocity 118.0 cm/s AV Area Cont Eq vti 2.8 cm squared AV Area Cont Eq pk 2.7 cm squared MV Peak Velocity 97.0 cm/s MV Area PHT 5.0 cm squared Mitral E to A Ratio 0.9 MV E' Velocity 44.5 cm/s Mitral E to MV E' Ratio 6.5 Mitral E to LV E' Lateral Ratio 5.9 Mitral E to LV E' Septal Ratio 7.3 TR Peak Velocity 266.0 cm/s TR Peak Gradient 28.3 mmHg TR Mean Velocity 216.2 cm/s TR Mean Gradient 22.0 mmHg TR Velocity Time Integral 82.0 cm TV Peak E Velocity 79.0 cm/s Right Atrial Pressure 3.0 mmHg Pulmonary Artery Systolic Pressu 31.3 mmHg PV Peak Velocity 132.0 cm/s FINDINGS Left Ventricle Left ventricle is normal in size. LV systolic function is normal with EF of 50 to 55%. No regional wall motion abnormalities are seen. Grade 1 diastolic dysfunction Right Ventricle Normal in size and function Right Atrium Normal in size Left Atrium Dilated Mitral Valve Structurally normal mitral valve. Trace mitral regurgitation. Aortic Valve Structurally normal aortic valve. No significant stenosis or regurgitation. Tricuspid Valve Mild tricuspid regurgitation. RVSP is 35 to 40 mmHg. This is consistent with mild pulmonary hypertension Pulmonic Valve Not well-visualized Pericardium Normal Aorta Normal in size IVC Appears to be normal CONCLUSIONS LV systolic function is normal with EF 55 to 55% Grade 1 diastolic dysfunction Left atrial dilation Trace mitral regurgitation Mild tricuspid regurgitation Mild pulmonary hypertension Compared to prior echocardiogram from 04/2022, no significant changes are seen Pawan Staton MD (Electronically Signed) Final Date: 20 November 2022 10:46 S
== END 2022-11-19 07:09 | disposition home or self-care (01) ==
PROVIDERS: PCP Family Medicine; Visit Provider Internal Medicine
DX: R06.02 Shortness of breath (principal); R07.9 Chest pain, unspecified; I07.1 Rheumatic tricuspid insufficiency; I27.20 Pulmonary hypertension, unspecified
CPT/HCPCS: 93306

== ENCOUNTER → 2023-04-01 08:11 | Outpatient (BNVA) | payer MEDICARE, SELFPAY | PROVIDERS: PCP Family Medicine; Visit Provider Thoracic Surgery (Cardiothoracic Vascular Surgery) | DX: I96 Gangrene, not elsewhere classified (principal); T81.31XD Disruption of external operation (surgical) wound, not elsewhere classified, subsequent encounter; Y83.8 Other surgical procedures as the cause of abnormal reaction of the patient, or of later complication, without mention of misadventure at the time of the procedure | CPT/HCPCS: 11042; 11045; 97606; 99213; A6237; A6250 ==

== ENCOUNTER → 2023-04-05 14:03 | Outpatient (BNVA) | payer MEDICARE, SELFPAY | PROVIDERS: PCP Family Medicine; Visit Provider Thoracic Surgery (Cardiothoracic Vascular Surgery) | DX: I96 Gangrene, not elsewhere classified (principal); T81.31XD Disruption of external operation (surgical) wound, not elsewhere classified, subsequent encounter; Y83.8 Other surgical procedures as the cause of abnormal reaction of the patient, or of later complication, without mention of misadventure at the time of the procedure | CPT/HCPCS: 11042; 11045; 80053; 85025; 97606; A6237; A6250 ==

== ENCOUNTER 2023-04-11 13:00 | Outpatient (CLI) | payer MEDICARE, SELFPAY ==
[2023-04-11 21:18] LABS: Basophils % 0.4 %; Eosinophils # 0.2 10^3/uL (0.0-0.8); Eosinophils % 2.9 %; Hematocrit 31.7 % (36-47); Lymphocytes # 1.6 10^3/uL (0.8-4.8); Lymphocytes % 23.2 %; Mean Corpuscular HGB Conc 30.3 g/dL (30-55); Mean Corpuscular Hemoglobin 28.9 pg (27-33); Mean Corpuscular Volume 95.5 fl (85-98); Mean Platelet Volume 10.1 fL (7.4-10.4); Monocytes # 0.7 10^3/uL (0.2-0.9); Monocytes % 10.7 %; Neutrophils # 4.23 10^3/uL (1.8-7.7); Neutrophils % 62.4 %; Nucleated Red Blood Cells % 0 %; Platelet Count 263 10^3/cmm (157-399); Red Blood Count 3.32 10^6/uL (3.85-5.65)
[2023-04-11 21:41] LABS: Alanine Aminotransferase 13 U/L (0-33); Albumin Level 3.4 g/dL (3.5-5.2); Alkaline Phosphatase 112 U/L (35-105); Aspartate Amino Transferase 14 U/L (0-32); Blood Urea Nitrogen 21 mg/dL (8-23); Calcium 8.5 mg/dL (8.5-10.5); Carbon Dioxide 35 mmol/L (22-29); Chloride 92 mmol/L (98-107); Globulin 2.7 g/dL (1.3-4.6); Glucose 66 mg/dL (65-115); Osmolality Calculated 289 mOsm/kg (285-295); Sodium 139 mmol/L (136-145); Total Bilirubin 0.2 mg/dL (0.15-1.2); Total Protein 6.1 g/dL (6.6-8.7)
== END 2023-04-11 13:01 | disposition home or self-care (01) ==
LOC: LAB 05-12 14:57
PROVIDERS: PCP Family Medicine; Visit Provider Internal Medicine
DX: Z45.2 Encounter for adjustment and management of vascular access device (principal)
CPT/HCPCS: 80053; 85025

== ENCOUNTER → 2023-04-12 15:43 | Outpatient (BNVA) | payer MEDICARE, SELFPAY | PROVIDERS: PCP Family Medicine; Visit Provider Nurse Practitioner Family | DX: T81.31XD Disruption of external operation (surgical) wound, not elsewhere classified, subsequent encounter (principal); Y83.8 Other surgical procedures as the cause of abnormal reaction of the patient, or of later complication, without mention of misadventure at the time of the procedure | CPT/HCPCS: 11042; 11045; 97606; A6237 ==

== ENCOUNTER → 2023-04-22 10:53 | Outpatient (BNVA) | payer MEDICARE, SELFPAY | PROVIDERS: PCP Family Medicine; Visit Provider Thoracic Surgery (Cardiothoracic Vascular Surgery) | DX: I96 Gangrene, not elsewhere classified (principal); T81.31XD Disruption of external operation (surgical) wound, not elsewhere classified, subsequent encounter; Y83.8 Other surgical procedures as the cause of abnormal reaction of the patient, or of later complication, without mention of misadventure at the time of the procedure | CPT/HCPCS: 11042; 11045; 97597; 97598 ==

== ENCOUNTER 2023-04-26 10:33 | Outpatient (CLI) | payer MEDICARE, SELFPAY ==
[2023-04-26 13:30] LABS: Add Urine Culture? Yes; Add Urine Microscopic? YES; Bacteria Urine 2+ /hpf; Bilirubin Urine Neg (Negative); Blood Urine Neg (Negative); Glucose Urine UA Norm (Normal); Ketones Urine Negative (Negative); Leukocyte Esterase Urine 1+ (Negative); Mucus Urine 1+ /hpf; Nitrate Urine Negative (Negative); Other Sediment, Urine BUD YEAST W/HYPHAE; Protein Urine Neg (Negative); RBC Urine 0-4 /hpf (0-2); Specific Gravity, Urine 1.005 (1.005-1.030); Squamous Epithelial Cell Urine 0-4 /hpf (0-5); Urine Appearance SL Hazy (CLEAR); Urine Color Light yellow (Yellow); Urobilinogen Urine Norm (Negative); pH Urine 5 (5-7)
== END 2023-04-26 10:34 | disposition home or self-care (01) ==
LOC: LAB 05-12 14:54
PROVIDERS: PCP Family Medicine; Visit Provider Family Medicine
DX: R82.90 Unspecified abnormal findings in urine (principal)
CPT/HCPCS: 81001; 87077; 87086; 87186

== ENCOUNTER → 2023-04-29 11:05 | Outpatient (BNVA) | payer MEDICARE, SELFPAY | PROVIDERS: PCP Family Medicine; Visit Provider Thoracic Surgery (Cardiothoracic Vascular Surgery) | DX: T81.31XD Disruption of external operation (surgical) wound, not elsewhere classified, subsequent encounter (principal); Y83.8 Other surgical procedures as the cause of abnormal reaction of the patient, or of later complication, without mention of misadventure at the time of the procedure | CPT/HCPCS: 11042; 11045; 97597; 97598; 97606; A6237; A6250 ==

== ENCOUNTER → 2023-05-06 10:43 | Outpatient (BNVA) | payer MEDICARE, SELFPAY | PROVIDERS: PCP Family Medicine; Visit Provider Thoracic Surgery (Cardiothoracic Vascular Surgery) | DX: T81.31XD Disruption of external operation (surgical) wound, not elsewhere classified, subsequent encounter (principal); Y83.8 Other surgical procedures as the cause of abnormal reaction of the patient, or of later complication, without mention of misadventure at the time of the procedure | CPT/HCPCS: 11042; 11045; 97597; 97598; 97606; A6237; A6250 ==

== ENCOUNTER → 2023-05-13 10:58 | Outpatient (BNVA) | payer MEDICARE, SELFPAY | PROVIDERS: PCP Family Medicine; Visit Provider Nurse Practitioner Family | DX: I96 Gangrene, not elsewhere classified (principal); T81.31XD Disruption of external operation (surgical) wound, not elsewhere classified, subsequent encounter; Y83.8 Other surgical procedures as the cause of abnormal reaction of the patient, or of later complication, without mention of misadventure at the time of the procedure | CPT/HCPCS: 11042; 11045 ==

== ENCOUNTER 2023-05-17 13:58 | Outpatient (CLI) | payer MEDICARE, SELFPAY ==
[2023-05-17 14:34] LABS: Add Urine Microscopic? YES; Bilirubin Urine Neg (Negative); Blood Urine Neg (Negative); Glucose Urine UA Norm (Normal); Ketones Urine Negative (Negative); Leukocyte Esterase Urine 1+ (Negative); Nitrate Urine Negative (Negative); Protein Urine Neg (Negative); Specific Gravity, Urine 1.005 (1.005-1.030); Urine Appearance Clear (CLEAR); Urine Color Yellow (Yellow); Urobilinogen Urine Norm (Negative); pH Urine 5 (5-7)
[2023-05-17 14:35] LABS: Add Urine Culture? No; Bacteria Urine TRACE /hpf; WBC Urine 0-4 /hpf (0-5)
== END 2023-05-17 13:59 | disposition home or self-care (01) ==
LOC: LAB 13:59
PROVIDERS: PCP Family Medicine; Visit Provider Family Medicine
DX: Z01.89 Encounter for other specified special examinations (principal)
CPT/HCPCS: 81001

== ENCOUNTER → 2023-05-20 13:43 | Outpatient (BNVA) | payer MEDICARE, SELFPAY | PROVIDERS: PCP Family Medicine; Visit Provider Thoracic Surgery (Cardiothoracic Vascular Surgery) | DX: I96 Gangrene, not elsewhere classified (principal); T81.31XD Disruption of external operation (surgical) wound, not elsewhere classified, subsequent encounter; Y83.8 Other surgical procedures as the cause of abnormal reaction of the patient, or of later complication, without mention of misadventure at the time of the procedure | CPT/HCPCS: 11042; 11045; 97597 ==

== ENCOUNTER → 2023-05-27 07:54 | Outpatient (BNVA) | payer MEDICARE, SELFPAY | PROVIDERS: PCP Family Medicine; Visit Provider Thoracic Surgery (Cardiothoracic Vascular Surgery) | DX: I96 Gangrene, not elsewhere classified (principal); T81.31XD Disruption of external operation (surgical) wound, not elsewhere classified, subsequent encounter; Y83.8 Other surgical procedures as the cause of abnormal reaction of the patient, or of later complication, without mention of misadventure at the time of the procedure; L98.412 Non-pressure chronic ulcer of buttock with fat layer exposed | CPT/HCPCS: 11042; 11045; 97597; A6220 ==

== ENCOUNTER → 2023-06-03 07:59 | Outpatient (BNVA) | payer MEDICARE, SELFPAY | PROVIDERS: PCP Family Medicine; Visit Provider Thoracic Surgery (Cardiothoracic Vascular Surgery) | DX: I96 Gangrene, not elsewhere classified (principal); T81.31XD Disruption of external operation (surgical) wound, not elsewhere classified, subsequent encounter; Y83.8 Other surgical procedures as the cause of abnormal reaction of the patient, or of later complication, without mention of misadventure at the time of the procedure | CPT/HCPCS: 11042; 11045; 97597; A6219; A6220 ==

== ENCOUNTER 2023-06-08 16:33 | Outpatient (CLI) | payer MEDICARE, SELFPAY ==
--- NOTE | 2023-06-08 17:00 | CT_ITS ---
WS: [id number] CT ABDOMEN AND PELVIS NONCONTRAST HISTORY: abdominal pain, right-sided lower abdominal and pelvic pain since wound VAC removal. History of pleomorphic sarcoma. TECHNIQUE: Imaging performed through the abdomen and pelvis. Coronal and sagittal reformats are submi tted. All CT scans at [facility] use at least one of these dose optimization techniques: auto mated exposure control; mA and/or kV adjustment per patient size (includes targeted exams where dose is matched to clinical indication); or iterative reconstruction. DLP: 697.17 mGy.cm COMPARISON: 07/10/2022, 04/16/2022 Lower thorax: Lung bases are clear. Visualized heart is normal. Small hiatal hernia. Liver: Liver is slightly enlarged. On this unenhanced study no metastatic lesions are identified. No bile duct dilatation. Gallbladder: Prior cholecystectomy. Pancreas: Mild atrophy. No mass. Spleen: Normal. Adrenal glands: Bilateral adrenal masses have been previously described on multiple prior studies. St able in size and thought to be adenomas. Right kidney: Normal size kidney with no mass or hydronephrosis. Left kidney: Normal size kidney with no mass or hydronephrosis. Aorta: Moderate to severe atherosclerosis abdominal aorta. No aneurysm. Atherosclerosis continues int o the common iliac arteries. High-grade stenosis in the infrarenal aorta due to calcified plaque. No ascites or free air. GI tract: Nondistended stomach. No small bowel obstruction. Diffuse moderate constipation and fecal r etention throughout the colon. Appendix has been removed. Distal colon within the pelvis is obscured by artifact from the hip prostheses. Abdominal wall: Abdominal wall hernia repair is evident. There is a large scar with volume loss of th e subcu soft tissues over the RIGHT lateral abdominal wall. There is loss of the subcutaneous soft ti ssue with scar formation extending along the RIGHT abdominal wall to the RIGHT inguinal region and RI GHT pelvis. Pelvis: There is soft tissue infiltration throughout the subcutaneous fat along the RIGHT lateral pel vis extending into the inguinal region. Some of these changes are probably scar formation from the pr ior surgery. Infiltrating neoplasm cannot be excluded. Soft tissue masses which were probably abnorma l lymph nodes were noted in the RIGHT inguinal region on 07/10/2022. There are now new soft tissue mas ses in the RIGHT pelvis and RIGHT inguinal region which were not present on the most recent exam. The RIGHT inguinal mass measures 3.2 x 3.5 cm. The new solid mass in the RIGHT pelvis along the iliac ch ain measures 5.4 x 5.4 cm. This new mass within the RIGHT pelvis is surrounded by small bowel loops. Could be a cluster of small bowel but the configuration suggests this may be an abnormal lymph node. There is increased soft tissue also in the surgical bed at the RIGHT inguinal region which may be rec urrent adenopathy or postsurgical changes. Osseous structures: Bilateral hip prostheses. Mixed lytic and sclerotic changes in L4 and L5 were pre sent on 07/10/2022 also. No new bone lesions. IMPRESSION: 1. Infiltrating soft tissue centered over the RIGHT inguinal region at the site of the prior surgery . There are postsurgical changes with volume loss and scarring in the subcutaneous soft tissue. There is significant soft tissue infiltration for which tumor cannot be excluded. 2. New RIGHT inguinal mass which is probably an abnormal lymph node measures 3.2 x 3.5 cm. There is an additional solid mass along the RIGHT inguinal chain measuring 5.4 x 5.4 cm. Closely associated wi th the small bowel loops. New configuration since the prior exam suggesting this is probably an addit ional lymph node. Cannot completely exclude a cluster of small bowel loops. Hounsfield units are low in the new RIGHT pelvic masses suggesting complete postsurgical seromas. Cystic adenopathy is not exc luded. 3. There is increased soft tissue in the surgical bed at the site of the previously removed RIGHT in guinal abnormal lymph node. This may all be postsurgical changes but recurrence at that surgical site should also be considered. 4. No ascites.
== END 2023-06-08 16:34 | disposition home or self-care (01) ==
LOC: RAD 16:33
PROVIDERS: PCP Family Medicine; Visit Provider Family Medicine
DX: R10.31 Right lower quadrant pain (principal); R10.2 Pelvic and perineal pain; R22.31 Localized swelling, mass and lump, right upper limb; Z98.890 Other specified postprocedural states; Z85.831 Personal history of malignant neoplasm of soft tissue
CPT/HCPCS: 74176

== ENCOUNTER → 2023-06-10 08:02 | Outpatient (BNVA) | payer MEDICARE, SELFPAY | PROVIDERS: PCP Family Medicine; Visit Provider Thoracic Surgery (Cardiothoracic Vascular Surgery) | DX: I96 Gangrene, not elsewhere classified (principal); T81.31XD Disruption of external operation (surgical) wound, not elsewhere classified, subsequent encounter; Y83.8 Other surgical procedures as the cause of abnormal reaction of the patient, or of later complication, without mention of misadventure at the time of the procedure; Z09 Encounter for follow-up examination after completed treatment for conditions other than malignant neoplasm | CPT/HCPCS: 11042; 11045; 97597; A6220 ==

== ENCOUNTER 2023-06-15 09:30 | Oncology outpatient (recurring) (ONCR) | payer MEDICARE, SELFPAY ==
[2023-06-15 10:05] LABS: Basophils % 0.3 %; Eosinophils # 0.2 10^3/uL (0.0-0.8); Eosinophils % 3.2 %; Hematocrit 34.4 % (36-47); Lymphocytes # 1.6 10^3/uL (0.8-4.8); Lymphocytes % 26.8 %; Mean Corpuscular HGB Conc 30.8 g/dL (30-55); Mean Corpuscular Hemoglobin 28.5 pg (27-33); Mean Corpuscular Volume 92.5 fl (85-98); Mean Platelet Volume 9.1 fL (7.4-10.4); Monocytes # 0.5 10^3/uL (0.2-0.9); Monocytes % 8.7 %; Neutrophils # 3.54 10^3/uL (1.8-7.7); Neutrophils % 60.5 %; Nucleated Red Blood Cells % 0 %; Platelet Count 277 10^3/cmm (157-399); Red Blood Count 3.72 10^6/uL (3.85-5.65); Red Cell Distribution Width 14.8 % (12.1-15.1); White Blood Count 5.86 10^3/uL (3.29-11.43)
[2023-06-15 10:36] LABS: Alanine Aminotransferase 19 U/L (0-33); Albumin Level 3.8 g/dL (3.5-5.2); Alkaline Phosphatase 170 U/L (35-105); Anion Gap 14.7 (5-19); Aspartate Amino Transferase 17 U/L (0-32); Blood Urea Nitrogen 21 mg/dL (8-23); Calcium 9.1 mg/dL (8.5-10.5); Carbon Dioxide 30 mmol/L (22-29); Chloride 99 mmol/L (98-107); Globulin 3.5 g/dL (1.3-4.6); Glomerular Filtration Rate 99.7 mL/min (90-130); Glucose 120 mg/dL (65-115); Osmolality Calculated 294 mOsm/kg (285-295); Potassium 3.7 mmol/L (3.5-5.1); Sodium 140 mmol/L (136-145); Thyroid Stimulating Hormone 2.66 uIU/mL (0.27-4.20); Total Bilirubin 0.2 mg/dL (0.15-1.2); Total Protein 7.3 g/dL (6.6-8.7)
== END 2023-06-15 23:59 | disposition home or self-care (01) ==
PROVIDERS: PCP Family Medicine; Visit Provider Internal Medicine Medical Oncology
DX: C49.21 Malignant neoplasm of connective and soft tissue of right lower limb, including hip (principal); I50.33 Acute on chronic diastolic (congestive) heart failure; Z87.891 Personal history of nicotine dependence
CPT/HCPCS: 36591; 80053; 84443; 85025; 96523; 99214; J1642

== ENCOUNTER → 2023-06-17 08:08 | Outpatient (BNVA) | payer MEDICARE, SELFPAY | PROVIDERS: PCP Family Medicine; Visit Provider Thoracic Surgery (Cardiothoracic Vascular Surgery) | DX: I96 Gangrene, not elsewhere classified (principal); T81.31XD Disruption of external operation (surgical) wound, not elsewhere classified, subsequent encounter; Y83.8 Other surgical procedures as the cause of abnormal reaction of the patient, or of later complication, without mention of misadventure at the time of the procedure | CPT/HCPCS: 11042; 11045; 97597; A6220 ==

== ENCOUNTER → 2023-06-24 08:38 | Outpatient (BNVA) | payer MEDICARE, SELFPAY | PROVIDERS: PCP Family Medicine; Visit Provider Thoracic Surgery (Cardiothoracic Vascular Surgery) | DX: I96 Gangrene, not elsewhere classified (principal); T81.31XD Disruption of external operation (surgical) wound, not elsewhere classified, subsequent encounter; Y83.8 Other surgical procedures as the cause of abnormal reaction of the patient, or of later complication, without mention of misadventure at the time of the procedure | CPT/HCPCS: 97597; 97598; A6220 ==

== ENCOUNTER 2023-06-30 16:33 | Outpatient (CLI) | payer MEDICARE, SELFPAY ==
--- NOTE | 2023-06-30 17:00 | CTR_ITS ---
PROCEDURE INFORMATION: Exam: CT Chest With Contrast; Diagnostic Exam date and time: 06/30/2023 5:14 PM Age: 68 years old Clinical indication: Condition or disease; Other: Sarcoma TECHNIQUE: Imaging protocol: Diagnostic computed tomography of the chest with contrast. Radiation optimization: All CT scans at this facility use at least one of these dose optimization techniques: automated exposure control; mA and/or kV adjustment per patient size (includes targeted exams where dose is matched to clinical indication); or iterative reconstruction. Contrast material: OMNI 350; Contrast volume: 95 ml; Contrast route: INTRAVENOUS (IV); COMPARISON: 1. CT chest abdpel w/*[id number] 07/10/2022 1:[address] angio chest PE protcl [id number] 05/01/2022 11:32 AM RADIATION DOSE METRICS: Total DLP (mGy-cm): 520.2 FINDINGS: Tubes, catheters and devices: Right chest wall port tip terminates in the right atrium. Lungs: Slightly increased size of paramediastinal left upper lobe ground-glass opacity measuring 2.5 cm, previously 1.7 cm on 05/01/2022. Linear opacity in the anterior left upper lobe, unchanged from prior and likely atelectasis/scarring. No new pulmonary nodules. No focal consolidation. Pleural spaces: Unremarkable. No pneumothorax. No pleural effusion. Heart: Unremarkable. No cardiomegaly. No pericardial effusion. Lymph nodes: Interval decreased mediastinal and bilateral hilar lymphadenopathy including reference right hilar lymph node (series 3, image 20) measuring 8 mm in short axis, previously 12 mm, and subcarinal lymph node (series 3, image 22) measuring 8 mm in short axis, previously 16 mm. Vasculature: Unremarkable. No aortic aneurysm. Gallbladder and bile ducts: Status post cholecystectomy. Adrenal glands: Stable size of bilateral adrenal masses. Bones/joints: Unremarkable. No acute fracture. Soft tissues: Partially visualized ventral abdominal wall hernia mesh. CT/CT chest w con* [id number] IMPRESSION: 1. Interval decreased mediastinal and bilateral hilar lymphadenopathy. 2. Slowly increasing size of paramediastinal left upper lobe ground-glass nodule measuring 2.5 cm, previously 1.7 cm on 05/01/2022. Findings are suspicious for indolent neoplasm, less likely metastatic disease. 3. Stable size of indeterminate bilateral adrenal masses.
[2023-06-30] MEDS: iohexol 350 mg/mL 500 mL Btl (per mL) IV (17:26)
== END 2023-06-30 16:34 | disposition home or self-care (01) ==
LOC: RAD 16:33
PROVIDERS: PCP Family Medicine; Visit Provider Internal Medicine Medical Oncology
DX: C49.9 Malignant neoplasm of connective and soft tissue, unspecified (principal); R59.0 Localized enlarged lymph nodes; R91.8 Other nonspecific abnormal finding of lung field; E27.9 Disorder of adrenal gland, unspecified
CPT/HCPCS: 71260; Q9967

== ENCOUNTER → 2023-07-01 08:00 | Outpatient (BNVA) | payer MEDICARE, SELFPAY | PROVIDERS: PCP Family Medicine; Visit Provider Thoracic Surgery (Cardiothoracic Vascular Surgery) | DX: T81.31XD Disruption of external operation (surgical) wound, not elsewhere classified, subsequent encounter (principal); Y83.8 Other surgical procedures as the cause of abnormal reaction of the patient, or of later complication, without mention of misadventure at the time of the procedure; Z09 Encounter for follow-up examination after completed treatment for conditions other than malignant neoplasm | CPT/HCPCS: 97597; 97598; A6220; A6248 ==

== ENCOUNTER → 2023-07-07 15:01 | Outpatient (BNVA) | payer MEDICARE, SELFPAY | PROVIDERS: PCP Family Medicine; Visit Provider Family Medicine | DX: M75.02 Adhesive capsulitis of left shoulder (principal) | CPT/HCPCS: 73030 ==

== ENCOUNTER → 2023-07-08 08:00 | Outpatient (BNVA) | payer MEDICARE, SELFPAY | PROVIDERS: PCP Family Medicine; Visit Provider Thoracic Surgery (Cardiothoracic Vascular Surgery) | DX: T81.31XD Disruption of external operation (surgical) wound, not elsewhere classified, subsequent encounter (principal); Y83.8 Other surgical procedures as the cause of abnormal reaction of the patient, or of later complication, without mention of misadventure at the time of the procedure | CPT/HCPCS: 97597; 97598; A6219; A6220 ==

== ENCOUNTER 2023-07-11 13:24 | Oncology outpatient (recurring) (ONCR) | payer MEDICARE, SELFPAY | END 2023-07-14 23:59 | disposition home or self-care (01) | PROVIDERS: PCP Family Medicine; Visit Provider Internal Medicine Medical Oncology | DX: C77.4 Secondary and unspecified malignant neoplasm of inguinal and lower limb lymph nodes (principal); Z85.831 Personal history of malignant neoplasm of soft tissue; M25.512 Pain in left shoulder; Z95.828 Presence of other vascular implants and grafts; Z87.891 Personal history of nicotine dependence; Z92.3 Personal history of irradiation | CPT/HCPCS: 96523; 99214; J1642 ==

== ENCOUNTER → 2023-07-21 08:33 | Outpatient (BNVA) | payer MEDICARE, SELFPAY | PROVIDERS: PCP Family Medicine; Visit Provider Thoracic Surgery (Cardiothoracic Vascular Surgery) | DX: I96 Gangrene, not elsewhere classified (principal); T81.31XD Disruption of external operation (surgical) wound, not elsewhere classified, subsequent encounter; Y83.8 Other surgical procedures as the cause of abnormal reaction of the patient, or of later complication, without mention of misadventure at the time of the procedure | CPT/HCPCS: 97597; 97598; A6021; A6220; A6248 ==

== ENCOUNTER → 2023-07-22 11:31 | Outpatient (BNVA) | payer MEDICARE, SELFPAY | PROVIDERS: PCP Family Medicine; Referring Provider Family Medicine; Visit Provider Nurse Practitioner | DX: M75.02 Adhesive capsulitis of left shoulder (principal); R29.898 Other symptoms and signs involving the musculoskeletal system; M62.838 Other muscle spasm | CPT/HCPCS: 73030; 99204 ==

== ENCOUNTER → 2023-07-26 14:23 | Outpatient (BNVA) | payer MEDICARE, SELFPAY | PROVIDERS: PCP Family Medicine; Visit Provider Internal Medicine | DX: R07.9 Chest pain, unspecified (principal); I44.7 Left bundle-branch block, unspecified; R00.0 Tachycardia, unspecified; C49.21 Malignant neoplasm of connective and soft tissue of right lower limb, including hip; I10 Essential (primary) hypertension; F41.9 Anxiety disorder, unspecified; F32.9 Major depressive disorder, single episode, unspecified; G47.33 Obstructive sleep apnea (adult) (pediatric); Z99.89 Dependence on other enabling machines and devices; I50.30 Unspecified diastolic (congestive) heart failure; Z79.899 Other long term (current) drug therapy; I11.0 Hypertensive heart disease with heart failure; Z87.891 Personal history of nicotine dependence | CPT/HCPCS: 36415; 85378; 93005; 99214 ==

== ENCOUNTER → 2023-07-28 08:38 | Outpatient (BNVA) | payer MEDICARE, SELFPAY | PROVIDERS: PCP Family Medicine; Visit Provider Thoracic Surgery (Cardiothoracic Vascular Surgery) | DX: I96 Gangrene, not elsewhere classified (principal); T81.31XD Disruption of external operation (surgical) wound, not elsewhere classified, subsequent encounter; Y83.8 Other surgical procedures as the cause of abnormal reaction of the patient, or of later complication, without mention of misadventure at the time of the procedure | CPT/HCPCS: 97597; 97598; A6220 ==

== ENCOUNTER 2023-07-29 09:08 | Outpatient (CLI) | payer MEDICARE, SELFPAY ==
--- NOTE | 2023-07-29 09:15 | USCV_ITS ---
Dennise Funes Age: 68 Gender: F : 1955 Exam Date: 07/29/2023 09:18 Ordering Phys: Pawan Staton M.D ([email or web address]) Technologist: Neville Casey Exam Location: [facility] [place] Indication: bilat le pain PROCEDURES: Venous duplex imaging was performed in bilateral lower extremities. The following venous structures were evaluated: common femoral vein, profunda vein, proximal portion of the greater saphenous vein, superficial femoral vein, and the popliteal vein. In addition, the posterior tibial and peroneal trunk were evaluated. Serial compression, augmentation maneuvers, and spectral Doppler flow evaluation were performed. FINDINGS: Normal 2-D Doppler and augmentation and compressibility throughout the lower extremity venous structures. Additional imaging through the proximal calf veins also reveals no thrombus. Limited evaluation of the greater saphenous vein is patent with no thrombus. CONCLUSIONS No evidence of right lower extremity DVT. No evidence of left lower extremity DVT. Joseph Marshall MD (Electronically Signed) Final Date: 01 August 2023 09:32 S
== END 2023-07-29 09:09 | disposition home or self-care (01) ==
LOC: RAD 09:08
PROVIDERS: PCP Family Medicine; Visit Provider Internal Medicine
DX: M79.604 Pain in right leg (principal); M79.605 Pain in left leg; R06.02 Shortness of breath
CPT/HCPCS: 93970

== ENCOUNTER 2023-08-02 07:49 | Oncology outpatient (recurring) (ONCR) | payer MEDICARE, SELFPAY ==
[2023-08-02 08:21] LABS: Basophils % 0.4 %; Eosinophils # 0.1 10^3/uL (0.0-0.8); Hematocrit 34.7 % (36-47); Lymphocytes # 1.7 10^3/uL (0.8-4.8); Lymphocytes % 34.8 %; Mean Corpuscular HGB Conc 30.8 g/dL (30-55); Mean Corpuscular Hemoglobin 27.9 pg (27-33); Mean Corpuscular Volume 90.4 fl (85-98); Mean Platelet Volume 9.2 fL (7.4-10.4); Monocytes # 0.5 10^3/uL (0.2-0.9); Monocytes % 10.9 %; Neutrophils # 2.52 10^3/uL (1.8-7.7); Neutrophils % 51.7 %; Nucleated Red Blood Cells % 0 %; Platelet Count 293 10^3/cmm (157-399); Red Blood Count 3.84 10^6/uL (3.85-5.65); Red Cell Distribution Width 15.5 % (12.1-15.1); White Blood Count 4.88 10^3/uL (3.29-11.43)
[2023-08-02 08:42] LABS: Alanine Aminotransferase 11 U/L (0-33); Albumin Level 3.8 g/dL (3.5-5.2); Alkaline Phosphatase 147 U/L (35-105); Anion Gap 12.1 (5-19); Aspartate Amino Transferase 17 U/L (0-32); Blood Urea Nitrogen 20 mg/dL (8-23); Calcium 8.6 mg/dL (8.5-10.5); Carbon Dioxide 31 mmol/L (22-29); Chloride 101 mmol/L (98-107); Creatinine Clr Calc Pharmacy 75.3541; Globulin 3.1 g/dL (1.3-4.6); Glomerular Filtration Rate 99.7 mL/min (90-130); Glucose 121 mg/dL (65-115); Osmolality Calculated 294 mOsm/kg (285-295); Potassium 4.1 mmol/L (3.5-5.1); Sodium 140 mmol/L (136-145); Total Bilirubin 0.2 mg/dL (0.15-1.2); Total Protein 6.9 g/dL (6.6-8.7)
== END 2023-08-14 23:59 | disposition home or self-care (01) ==
PROVIDERS: PCP Family Medicine; Visit Provider Internal Medicine Medical Oncology
DX: Z95.828 Presence of other vascular implants and grafts (principal); C49.21 Malignant neoplasm of connective and soft tissue of right lower limb, including hip; Z79.899 Other long term (current) drug therapy
CPT/HCPCS: 36591; 80053; 85025; 99214; J1642

== ENCOUNTER → 2023-08-04 07:59 | Outpatient (BNVA) | payer MEDICARE, SELFPAY | PROVIDERS: PCP Family Medicine; Visit Provider Thoracic Surgery (Cardiothoracic Vascular Surgery) | DX: I96 Gangrene, not elsewhere classified (principal); T81.31XD Disruption of external operation (surgical) wound, not elsewhere classified, subsequent encounter; Y83.8 Other surgical procedures as the cause of abnormal reaction of the patient, or of later complication, without mention of misadventure at the time of the procedure | CPT/HCPCS: 97597; A6219; A6220 ==

== ENCOUNTER → 2023-08-11 07:59 | Outpatient (BNVA) | payer MEDICARE, SELFPAY | PROVIDERS: PCP Family Medicine; Visit Provider Thoracic Surgery (Cardiothoracic Vascular Surgery) | DX: T81.31XD Disruption of external operation (surgical) wound, not elsewhere classified, subsequent encounter (principal); Y83.8 Other surgical procedures as the cause of abnormal reaction of the patient, or of later complication, without mention of misadventure at the time of the procedure | CPT/HCPCS: 97597 ==

== ENCOUNTER → 2023-08-18 08:00 | Outpatient (BNVA) | payer MEDICARE, SELFPAY | PROVIDERS: PCP Family Medicine; Visit Provider Thoracic Surgery (Cardiothoracic Vascular Surgery) | DX: I96 Gangrene, not elsewhere classified (principal); T81.31XD Disruption of external operation (surgical) wound, not elsewhere classified, subsequent encounter; Y83.8 Other surgical procedures as the cause of abnormal reaction of the patient, or of later complication, without mention of misadventure at the time of the procedure | CPT/HCPCS: 97597 ==

== ENCOUNTER 2023-08-26 15:01 | Outpatient (CLI) | payer MEDICARE, SELFPAY ==
[2023-08-26] MEDS: iohexol 350 mg/mL 500 mL Btl (per mL) PO (16:00)
--- NOTE | 2023-08-26 16:00 | CTR_ITS ---
PROCEDURE INFORMATION: Exam: CT Abdomen And Pelvis With Contrast Exam date and time: 08/26/2023 4:21 PM Age: 68 years old Clinical indication: Abdominal pain TECHNIQUE: Imaging protocol: Computed tomography of the abdomen and pelvis with contrast. Radiation optimization: All CT scans at this facility use at least one of these dose optimization techniques: automated exposure control; mA and/or kV adjustment per patient size (includes targeted exams where dose is matched to clinical indication); or iterative reconstruction. Contrast material: OMNIPAQUE 350; Contrast volume: 100 ml; Contrast route: INTRAVENOUS (IV); Other contrast: Oral, OMNIPAQUE 350, 25ML MIXED; COMPARISON: CT abdomen pelvis wo con [id number] 06/08/2023 4:52 PM RADIATION DOSE METRICS: Total DLP (mGy-cm): 978.23 FINDINGS: Lungs: Lung bases are clear. No pleural effusion. Liver: Normal. No mass. Gallbladder and bile ducts: The gallbladder has been resected. Pancreas: Normal. No ductal dilation. Spleen: Normal. No splenomegaly. Adrenal glands: There is a 2.8 cm right adrenal nodule. A 3 cm nodule involves the left adrenal gland. Kidneys and ureters: Several small rounded hypodense lesions involve the left kidney. Stomach and bowel: Unremarkable. No obstruction. No mucosal thickening. Appendix: No evidence of appendicitis. Intraperitoneal space: There is a 6 cm diameter mesenteric cyst in the right lower quadrant. Vasculature: Unremarkable. No abdominal aortic aneurysm. Lymph nodes: Unremarkable. No enlarged lymph nodes. Urinary bladder: Unremarkable as visualized. Reproductive: Unremarkable as visualized. Bones/joints: Bilateral hip prostheses are noted. Soft tissues: Extensive surgical scarring involves the anterior abdominal wall. There is extensive surgical scarring involving the right inguinal region. There is a right femoral hernia that contains the dome of the bladder on today's exam. CT/CT abdomen pelvis w con* [id number] IMPRESSION: 1. Bilateral adrenal nodules have decreased in size over the past year. 2. Stable left renal nodules 3. Right femoral hernia containing bladder. This is a new finding when compared to previous studies. 4. Surgical change involving the right groin and anterior abdominal wall 5. Stable mesenteric cyst
[2023-08-26] MEDS: iohexol 350 mg/mL 500 mL Btl (per mL) IV (17:09)
== END 2023-08-26 15:02 | disposition home or self-care (01) ==
LOC: RAD 15:03
PROVIDERS: PCP Family Medicine; Visit Provider Internal Medicine Medical Oncology
DX: R10.9 Unspecified abdominal pain (principal); E27.9 Disorder of adrenal gland, unspecified; N28.89 Other specified disorders of kidney and ureter; K41.90 Unilateral femoral hernia, without obstruction or gangrene, not specified as recurrent; K66.8 Other specified disorders of peritoneum
CPT/HCPCS: 74177; Q9967

== ENCOUNTER → 2023-09-01 08:54 | Outpatient (BNVA) | payer MEDICARE, SELFPAY | PROVIDERS: PCP Family Medicine; Visit Provider Thoracic Surgery (Cardiothoracic Vascular Surgery) | DX: T81.31XD Disruption of external operation (surgical) wound, not elsewhere classified, subsequent encounter (principal); I96 Gangrene, not elsewhere classified; Y83.8 Other surgical procedures as the cause of abnormal reaction of the patient, or of later complication, without mention of misadventure at the time of the procedure | CPT/HCPCS: 97597; A6248 ==

== ENCOUNTER 2023-09-07 08:59 | Outpatient (CLI) | payer MEDICARE, SELFPAY ==
--- NOTE | 2023-09-07 09:30 | CT_ITS ---
WS: [id number] CT LEFT SHOULDER, NONCONTRAST, 3D HISTORY: left shoulder pain, history of sarcoma. Technique: All CT scans at [facility] use at least one of these dose optimization techniques: automated exposure control; mA and/or kV adjustment per patient size (includes targeted exams where dose is matched to clinical indication); or iterative reconstruction. DLP: 428.17 mGy.cm COMPARISON: 01/20/2020 No acute fracture. Mildly high riding humeral head and mild narrowing of the glenohumeral joint. Lyti c bone lesion in the medial humeral head adjacent to the glenoid measures 11 x 12 mm. There is loss o f the normal cortex along the articular surface. No soft tissue mass identified associated with the b one lesion. There is an additional cortical defect along the posterior superior humeral head. The gle noid is intact. Normal AC joint. No additional lytic lesions are identified. No adenopathy. The visualized ribs are negative. Nodular opacification LEFT upper lobe with associated atelectasis. The nodular component measures 13 x 8 mm. There is additional subsolid consolidation in the medial LEFT upper lobe. Both of these LEFT upper lobe opacifications were described on 06/30/2023 CT. Described as suspicious at that time. IMPRESSION: 1. Lytic bone lesion in the medial LEFT humeral head adjacent to the glenoid. Loss of the overlying cortex. No associated mass. Subchondral cyst associated with arthritis versus metastatic bone disease . Additional imaging is warranted. MRI LEFT shoulder with and without contrast recommended. Bone scan imaging may be helpful to evaluate for additional bone lesions. I would suspect the LEFT humeral lyt ic lesion will be positive both with arthritis and metastatic disease. 2. Indeterminant but suspicious LEFT upper lobe opacifications. These were described on the chest CT of 06/30/2023.
[2023-09-07] MEDS: iohexol 350 mg/mL 500 mL Btl (per mL) IV (09:59)
== END 2023-09-07 09:00 | disposition home or self-care (01) ==
LOC: RAD 09:00
PROVIDERS: PCP Family Medicine; Visit Provider Internal Medicine Medical Oncology
DX: M25.512 Pain in left shoulder (principal); M89.9 Disorder of bone, unspecified
CPT/HCPCS: 73201; 97597; Q9967

== ENCOUNTER 2023-09-12 14:00 | Oncology outpatient (recurring) (ONCR) | payer MEDICARE, SELFPAY ==
[2023-08-24 12:26] LABS: Basophils % 0.6 %; Eosinophils # 0.1 10^3/uL (0.0-0.8); Eosinophils % 2.2 %; Hematocrit 34.8 % (36-47); Lymphocytes # 1.7 10^3/uL (0.8-4.8); Lymphocytes % 34.8 %; Mean Corpuscular HGB Conc 30.5 g/dL (30-55); Mean Corpuscular Volume 91.8 fl (85-98); Mean Platelet Volume 9.2 fL (7.4-10.4); Monocytes # 0.6 10^3/uL (0.2-0.9); Monocytes % 11.5 %; Neutrophils # 2.51 10^3/uL (1.8-7.7); Neutrophils % 50.5 %; Nucleated Red Blood Cells % 0 %; Platelet Count 245 10^3/cmm (157-399); Red Blood Count 3.79 10^6/uL (3.85-5.65); Red Cell Distribution Width 15.9 % (12.1-15.1); White Blood Count 4.97 10^3/uL (3.29-11.43)
--- NOTE | 2023-08-24 12:29 | ECG_ITS ---
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 Measurements Intervals [place] Rate: 82 P: 49 SD: 180 QRS: 44 QRSD: 145 T: 64 QT: 413 QTc: 484 Interpretive Statements SINUS RHYTHM LEFT BUNDLE BRANCH BLOCK [120+ ms QRS DURATION, 80+ ms Q/S IN V1/V2, 85+ ms R IN I/aVL/V5/V6] INTERPRETATION BASED ON A DEFAULT AGE OF 40 YEARS Compared to ECG 07/26/2023 14:34:39 Sinus tachycardia no longer present Electronically Signed On 08-24-2023 18:46:08 CDT by Iftikhar Bradley M.D. [id number] f
[2023-08-24 12:43] LABS: Alanine Aminotransferase 12 U/L (0-33); Albumin Level 3.9 g/dL (3.5-5.2); Alkaline Phosphatase 146 U/L (35-105); Anion Gap 15.1 (5-19); Aspartate Amino Transferase 17 U/L (0-32); Blood Urea Nitrogen 21 mg/dL (8-23); Calcium 8.8 mg/dL (8.5-10.5); Carbon Dioxide 30 mmol/L (22-29); Chloride 101 mmol/L (98-107); Globulin 3.3 g/dL (1.3-4.6); Glomerular Filtration Rate 83.5 mL/min (90-130); Glucose 117 mg/dL (65-115); Osmolality Calculated 298 mOsm/kg (285-295); Potassium 4.1 mmol/L (3.5-5.1); Sodium 142 mmol/L (136-145); Total Bilirubin 0.4 mg/dL (0.15-1.2); Total Protein 7.2 g/dL (6.6-8.7)
[2023-08-30 11:17] LABS: Basophils % 0.6 %; Eosinophils # 0.1 10^3/uL (0.0-0.8); Eosinophils % 2.4 %; Hematocrit 34.5 % (36-47); Lymphocytes # 1.6 10^3/uL (0.8-4.8); Lymphocytes % 29.4 %; Mean Corpuscular HGB Conc 30.7 g/dL (30-55); Mean Corpuscular Hemoglobin 28.3 pg (27-33); Mean Corpuscular Volume 92.2 fl (85-98); Mean Platelet Volume 9.3 fL (7.4-10.4); Monocytes # 0.6 10^3/uL (0.2-0.9); Monocytes % 10.3 %; Neutrophils % 56.7 %; Nucleated Red Blood Cells % 0 %; Platelet Count 234 10^3/cmm (157-399); Red Blood Count 3.74 10^6/uL (3.85-5.65); Red Cell Distribution Width 15.7 % (12.1-15.1); White Blood Count 5.45 10^3/uL (3.29-11.43)
[2023-08-30 11:33] LABS: Alanine Aminotransferase 10 U/L (0-33); Alkaline Phosphatase 155 U/L (35-105); Anion Gap 16.7 (5-19); Aspartate Amino Transferase 14 U/L (0-32); Blood Urea Nitrogen 20 mg/dL (8-23); Calcium 9.4 mg/dL (8.5-10.5); Carbon Dioxide 30 mmol/L (22-29); Chloride 100 mmol/L (98-107); Globulin 3.2 g/dL (1.3-4.6); Glomerular Filtration Rate 71.5 mL/min (90-130); Glucose 133 mg/dL (65-115); Osmolality Calculated 299 mOsm/kg (285-295); Potassium 4.7 mmol/L (3.5-5.1); Sodium 142 mmol/L (136-145); Total Bilirubin 0.3 mg/dL (0.15-1.2); Total Protein 7.2 g/dL (6.6-8.7)
--- NOTE | 2023-09-07 10:03 | ECG_ITS ---
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 Measurements Intervals [place] Rate: 82 P: 61 IN: 189 QRS: 42 QRSD: 150 T: 57 QT: 425 QTc: 499 Interpretive Statements SINUS RHYTHM LEFT BUNDLE BRANCH BLOCK [120+ ms QRS DURATION, 80+ ms Q/S IN V1/V2, 85+ ms R IN I/aVL/V5/V6] Compared to ECG 08/24/2023 12:24:35 No significant changes Electronically Signed On 09-07-2023 18:50:56 CDT by Iftikhar Bradley M.D. [id number]
== END 2023-09-13 23:59 | disposition home or self-care (01) ==
PROVIDERS: Nurse Practitioner Family; PCP Family Medicine; Visit Provider Internal Medicine Medical Oncology
DX: Z53.9 Procedure and treatment not carried out, unspecified reason
CPT/HCPCS: 36591; 80053; 81000; 85025; 93005; 97597; 99214; J1642

== ENCOUNTER 2023-09-13 07:57 | Outpatient (CLI) | payer MEDICARE, SELFPAY | END 2023-09-13 07:58 | disposition home or self-care (01) | PROVIDERS: PCP Family Medicine; Visit Provider Radiology Radiation Oncology | DX: C49.21 Malignant neoplasm of connective and soft tissue of right lower limb, including hip (principal); R93.89 Abnormal findings on diagnostic imaging of other specified body structures; M25.512 Pain in left shoulder; Z85.831 Personal history of malignant neoplasm of soft tissue | CPT/HCPCS: 97597; A6248 ==

== ENCOUNTER 2023-09-15 08:53 | Outpatient (CLI) | payer MEDICARE, SELFPAY ==
--- NOTE | 2023-09-15 09:00 | NM_ITS ---
WS: [id number] NUCLEAR MEDICINE BONE SCAN Radiopharmaceutical: 26.3 Tc-99m MDP mCi IV Injection site: Antecubital Postinjection imaging delay: 1 hr CLINICAL INFORMATION: ct follow up on bone lesion COMPARISON: Bone scan [address] 09/06 FINDINGS: Prior to CT shoulder reviewed. Bone lesions: Multiple punctate foci of uptake in the LEFT anterior ribs compatible with multiple rec ent traumatic rib fractures. Degenerative type uptake in both shoulders and humeral heads LEFT greate r than RIGHT. Slight asymmetric uptake in the LEFT medial humeral head likely corresponds to the find ings on the recent shoulder CT although nonspecific for metastatic disease versus advanced arthritis with subchondral cystic change. Tiny punctate focus of uptake in the RIGHT T11 pedicle likely posttraumatic or degenerative. Soft tissue contours: Prior postoperative changes sarcoma resection involving the RIGHT pelvis and RI GHT thigh area. Kidneys: Normal. Other findings: Postoperative changes of bilateral THAs. NM/NM bone scan whole body* [id number] IMPRESSION: 1. Numerous punctate foci of uptake in the LEFT anterior ribs compatible with recent trauma with numerous anterior LEFT rib fractures. 2. Degenerative type uptake in the LEFT greater than RIGHT shoulders with asym metric uptake in the LEFT humeral head. This is nonspecific for metastatic dise ase versus advanced degenerative arthritis. Short interval follow-up with nonco ntrast shoulder CT may be helpful to assess change.
== END 2023-09-15 08:54 | disposition home or self-care (01) ==
PROVIDERS: PCP Family Medicine; Visit Provider Radiology Radiation Oncology
DX: Z85.831 Personal history of malignant neoplasm of soft tissue (principal); R93.89 Abnormal findings on diagnostic imaging of other specified body structures; M25.512 Pain in left shoulder; C49.21 Malignant neoplasm of connective and soft tissue of right lower limb, including hip
CPT/HCPCS: 78306; 97597; A9561

== ENCOUNTER 2023-09-21 13:33 | Emergency (ER) | payer MEDICARE, SELFPAY ==
[2023-09-21] VITALS (7 sets, daily range): BP systolic 142–168; BP diastolic 63–67; PULSE 76–81; RESP 16–18; TEMP 36.8; O2SAT 89–98
--- NOTE | 2023-09-21 13:45 | CTR_ITS ---
PROCEDURE INFORMATION: Exam: CT Abdomen And Pelvis With Contrast Exam date and time: 09/21/2023 3:27 PM Age: 68 years old Clinical indication: Nausea and vomiting; Abdominal pain; Generalized; Additional info: Abd pain TECHNIQUE: Imaging protocol: Computed tomography of the abdomen and pelvis with contrast. Radiation optimization: All CT scans at this facility use at least one of these dose optimization techniques: automated exposure control; mA and/or kV adjustment per patient size (includes targeted exams where dose is matched to clinical indication); or iterative reconstruction. Contrast material: OMNI 350; Contrast volume: 100 ml; Contrast route: INTRAVENOUS (IV); COMPARISON: CT abdomen pelvis w con* [id number] 08/26/2023 4:21 PM RADIATION DOSE METRICS: Total DLP (mGy-cm): 1055.95 FINDINGS: Lungs: Mild interstitial pulmonary edema. Diaphragm: No evidence of diaphragmatic defect. Liver: Hepatomegaly and hepatic steatosis with right lobe measuring up to 20 cm. No evidence of focal hepatic lesion. Gallbladder and bile ducts: Status post cholecystectomy. No evidence of intrahepatic or extrahepatic biliary dilatation. Pancreas: Mildly atrophic. Otherwise grossly unremarkable. Spleen: Unremarkable. Adrenal glands: Nodular thickening of both adrenal glands with suspected lipid rich adenomas bilaterally, not significantly changed in comparison to prior exam from August of 2023. Kidneys and ureters: There are simple appearing renal cysts for which dedicated imaging follow-up is not required. Otherwise no evidence of renal parenchymal abnormality. No hydronephrosis or ureteral stone. Stomach and bowel: Few scattered colonic diverticula without evidence of acute diverticulitis. No evidence of bowel obstruction or perienteric inflammatory changes. Unchanged cyst in the right lower quadrant mesentery. Appendix: The appendix is not visualized, however there are no findings to suggest appendicitis. Intraperitoneal space: No evidence of free air or fluid collection. Vasculature: Extensive aortobiiliac atherosclerosis without aneurysmal dilatation or dissection. There is moderate-severe narrowing of the aortic lumen (image 46 of series 4). The celiac trunk, SMA and OSVALDO are grossly patent. There is moderate narrowing of the origins of the celiac trunk and SMA secondary to densely calcified atherosclerotic plaque. No evidence of IVC thrombus. The portal vein, SMV and splenic veins are grossly patent. Lymph nodes: No adenopathy. Urinary bladder: Again seen is protrusion of the anterior aspect of the bladder into the right femoral sheath/inguinal region. Otherwise grossly unremarkable. Reproductive: Status post hysterectomy. Bones/joints: No evidence of acute fracture or aggressive osseous lesion. Lumbosacral transitional anatomy with partial lumbarization of S1. Bilateral total hip arthroplasties without evidence of complication within the field of view. Soft tissues: There is soft tissue edema of the right flank, possibly reflecting contusion or cellulitis in the proper clinical setting. Postsurgical changes of the ventral abdominal wall with chronic scarring/wound of the ventral right hemiabdomen extending into the right inguinal region. There appears to be a fat graft along the anterior aspect of the right thigh with edema and multiple surgical clips. No evidence of fluid collection or hematoma in the superficial soft tissues. CT/CT abdomen pelvis w con* [id number] IMPRESSION: 1. No evidence of acute abnormality in the abdomen or pelvis. 2. Moderate-severe narrowing of the infrarenal abdominal aortic lumen secondary to densely calcified atherosclerotic plaque. Vascular evaluation is recommended. 3. Postsurgical changes of the ventral abdominal wall and right groin/thigh. No fluid collection or hematoma. Again seen is protrusion of the anterior aspect of the bladder into the right femoral sheath/inguinal region. 4. Nodular thickening of both adrenal glands with suspected lipid rich adrenal adenomas. If not previously characterized, consider further evaluated with nonemergent adrenal protocol MRI.
--- NOTE | 2023-09-21 13:46 | W.ED.NAVMDI ---
HPI - Nausea/Vomiting/Diarrhea General: Chief complaint: Nausea/Vomiting/Diarrhea Stated complaint: n/v/d Time Seen by Provider: 09/21/23 13:35 Source: patient and EMS Mode of arrival: EMS Limitations: no limitations History of Present Illness: 68-year-old female states she been having nausea vomiting diarrhea since yesterday. States she had some generalized weakness and feeling dehydrated. She denies any fevers denies any blood in her vomit or stool. She has had a history of cancer and had lymph node removed her abdomen has had multiple surgeries her abdomen she has a known femoral hernia she states is containing bladder she is getting follow-up with urology but is not seeing them yet. Associated nausea: Yes Associated symtoms: Reports nausea; Denies chest pain, dysuria or headache(s) Review of Systems Const: Denies: fever(s), chills, body aches or change in appetite ENMT: Denies: throat pain or dental pain Card: Denies: chest pain Resp: Denies: dyspnea GI: Reports: nausea and vomiting; Denies: abdominal pain or diarrhea : Denies: dysuria Musc: Denies: neck pain or back pain Skin/Breast: Denies: rash Neuro: Denies: headache(s) PFSH ED PFSH: Medical History REINA (acute kidney injury) Anxiety and depression CAD (coronary artery disease) Cancer related pain Chronic narcotic use Chronic pain of right knee Conn syndrome COPD (chronic obstructive pulmonary disease) Degenerative arthritis Essential hypertension GERD (gastroesophageal reflux disease) GERD with apnea Heart failure with preserved ejection fraction History of nonmelanoma skin cancer Hypertension Metabolic syndrome Nausea and vomiting YOLY on CPAP Oxygen dependent Pneumonia 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 Bean Family History Mother Family history of premature coronary artery disease Hypertension Brother Cancer Hypertension Sister Cancer Father Family history of premature coronary artery disease Hypertension Denies family history of Diabetes CAD (coronary artery disease) Clotting disorder Dementia Hyperlipidemia Psychiatric illness Chronic kidney disease (CKD) Suicide Anesthesia complication Bleeding disorder Lung disease Stroke Social History Smoking and tobacco/nicotine status: former use of tobacco/nicotine (smoked x 40 years) Quit status (tobacco/nicotine): has quit using Year quit tobacco: 2016 Former quit date comment: 2ppd x 36 years Second hand smoke exposure: No Alcohol intake: never Substance/Drug Use: never Adopted: No Caregiver/support person: Yes Lives independently: Yes Marital status: Single Current occupational status: employed 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 [employer] [place] Physical Exam Const: COMMON NORMALS: no acute distress, patient oriented x3 and healthy appearing HENMT: COMMON NORMALS: normocephalic and atraumatic HEAD & SCALP: normocephalic and atraumatic Eye: COMMON NORMALS: Equal, round and reactive pupils present and EOMs intact bilaterally PUPIL: Yes Equal, round and reactive pupils present Neck/C-Spine: COMMON NORMALS: full ROM and supple Chest: COMMONS NORMALS: normal inspection of the chest and normal palpation of entire chest wall Resp: COMMON NORMALS: normal respiratory effort, No retractions, No use of accessory muscles and clear to auscultation bilaterally AUSCULTATION: clear to auscultation bilaterally Cardio: COMMON NORMALS: regular rate, regular rhythm and No murmurs present (Cardio) RATE: regular rate RHYTHM: regular rhythm GI: COMMON NORMALS: Normal to inspection, nondistended, normoactive bowel sounds present, Soft to palpation, non-tender and no masses PALPATION: Yes Soft to palpation Extremity: COMMON NORMALS: normal to inspection and full ROM Neuro: COMMON NORMALS: patient oriented x3, moves all extremities and no focal motor deficits Psych: COMMON NORMALS: mental status grossly normal, Normal thought process present and cooperative THOUGHT PROCESS: Normal thought process present Skin: COMMON NORMALS: no rashes or lesions noted and no wounds GENERAL SKIN EXAM: no rashes or lesions noted Course Vital Signs: Vital signs: Vital Signs Temperature 98.3 F 09/21/23 13:34 Pulse Rate 76 09/21/23 17:07 Respiratory Rate 18 09/21/23 17:07 Blood Pressure 168/67 09/21/23 15:14 Pulse Oximetry 98 09/21/23 17:07 Oxygen Delivery Me thod Nasal Cannula 09/21/23 16:29 Oxygen Flow Rate 2 09/21/23 16:29 MDM - Nausea/Vomiting/Diarrhea Medical Decision Making Patient presents with vomiting along with diarrhea is likely a gastroenteritis CT scan blood work here showed no acute abnormality she feels improved after fluids and Zofran will prescribe her Zofran for home she is follow-up with PCP return if worsening abdominal exam here is benign. Medical Records I reviewed the patient's medical records. Lab Data I reviewed the patient's lab results. 09/21/23 14:00 09/21/23 14:00 Radiology Impressions Abdomen/Pelvis CT 09/21/23 13:45 IMPRESSION: 1. No evidence of acute abnormality in the abdomen or pelvis. 2. Moderate-severe narrowing of the infrarenal abdominal aortic lumen secondary to densely calcified atherosclerotic plaque. Vascular evaluation is recommended. 3. Postsurgical changes of the ventral abdominal wall and right groin/thigh. No fluid collection or hematoma. Again seen is protrusion of the anterior aspect of the bladder into the right femoral sheath/inguinal region. 4. Nodular thickening of both adrenal glands with suspected lipid rich adrenal adenomas. If not previously characterized, consider further evaluated with nonemergent adrenal protocol MRI. Chest X-Ray 09/21/23 15:19 Impression: Atherosclerosis. Laboratory Results WBC 3.44 10^3/uL (3.29-11.43) 09/21/23 14:00 RBC 3.56 10^6/uL (3.85-5.65) L 09/21/23 14:00 Hgb 9.90 g/dL (11.27-16.99) L 09/21/23 14:00 Hct 32.7 % (36-47) L 09/21/23 14:00 MCV 91.9 fl (85-98) 09/21/23 14:00 MCH 27.8 pg (27-33) 09/21/23 14:00 MCHC 30.3 g/dL (30-55) 09/21/23 14:00 RDW 16.4 % (12.1-15.1) H 09/21/23 14:00 Plt Count 202 10^3/cmm (157-399) 09/21/23 14:00 MPV 9.5 fL (7.4-10.4) 09/21/23 14:00 Neut % (Auto) 69.5 % 09/21/23 14:00 Lymph % (Auto) 21.8 % 09/21/23 14:00 [place] % (Auto) 8.4 % 09/21/23 14:00 Eos % (Auto) 0.0 % 09/21/23 14:00 Baso % (Auto) 0.0 % 09/21/23 14:00 Neut # (Auto) 2.39 10^3/uL (1.8-7.7) 09/21/23 14:00 Lymph # (Auto) 0.8 10^3/uL (0.8-4.8) 09/21/23 14:00 [place] # (Auto) 0.3 10^3/uL (0.2-0.9) 09/21/23 14:00 Eos # (Auto) 0.0 10^3/uL (0.0-0.8) 09/21/23 14:00 Baso # (Auto) 0.0 10^3/uL (0.0-0.1) 09/21/23 14:00 Nucleated RBC % (auto) 0 % 09/21/23 14:00 Nucleated RBCs # 0.0 /100WBC 09/21/23 14:00 Sodium 136 mmol/L (136-145) 09/21/23 14:00 Potassium 3.2 mmol/L (3.5-5.1) L 09/21/23 14:00 Chloride 98 mmol/L (98-107) 09/21/23 14:00 Carbon Dioxide 28 mmol/L (22-29) 09/21/23 14:00 Anion Gap 13.2 (5-19) 09/21/23 14:00 BUN 17 mg/dL (8-23) 09/21/23 14:00 Creatinine 0.7 mg/dL (0.5-0.9) 09/21/23 14:00 GFR Calculation 83.5 mL/min (90-130) L 09/21/23 14:00 Glucose 121 mg/dL (65-115) H 09/21/23 14:00 Calculated Osmolality 285 mOsm/kg (285-295) 09/21/23 14:00 Calcium 7.6 mg/dL (8.5-10.5) L 09/21/23 14:00 Total Bilirubin 0.3 mg/dL (0.15-1.2) 09/21/23 14:00 AST 13 U/L (0-32) 09/21/23 14:00 ALT 7 U/L (0-33) 09/21/23 14:00 Alkaline Phosphatase 120 U/L (35-105) H 09/21/23 14:00 Total Protein 6.4 g/dL (6.6-8.7) L 09/21/23 14:00 Albumin 3.1 g/dL (3.5-5.2) L 09/21/23 14:00 Globulin 3.3 g/dL (1.3-4.6) 09/21/23 14:00 Lipase 10 U/L (13-60) L 09/21/23 14:00 All radiology interpretation(s) finalized by discharge Discharge Plan Discharge Patient Disposition: Home Clinical Impression: Vomiting Condition: Stable Prescriptions: New ondansetron 4 mg tablet,disintegrating 4 mg PO Q6H PRN (Reason: nausea and vomiting) Qty: 14 0RF No Action albuterol sulfate [Ventolin HFA] 90 mcg/actuation HFA aerosol inhaler 2 puff INHALATION Q6H PRN (Reason: Shortness Of Breath) Qty: 8.5 0RF albuterol sulfate 2.5 mg /3 mL (0.083 %) solution for nebulization 2.5 mg inhalation Q4H PRN (Reason: shortness of breath or wheezing) Qty: 75 0RF ondansetron HCl 8 mg tablet 8 mg PO Q6H PRN (Reason: nausea and vomiting) Qty: 60 0RF acetaminophen 325 mg capsule 1,300 mg PO BID PRN (Reason: Pain) tamsulosin 0.4 mg capsule 0.4 mg PO DAILY Qty: 60 3RF gabapentin 600 mg tablet 600 mg PO BID Dose Instruction: TAKE 1 TABLET BY MOUTH THREE TIMES DAILY guaifenesin [Mucinex] 1,200 mg tablet extended release 12hr 1,200 mg PO BID escitalopram oxalate 20 mg tablet 20 mg PO DAILY Qty: 90 1RF naloxone [Narcan] 4 mg/actuation spray,non-aerosol 4 mg intranasal Q2M Qty: 2 3RF Rx Instructions: spray 1 dose into ONE nostril; alternate nostrils w each dose until help arrives (DME) Compression Supporting Hose See Rx Instructions .Route .MEDSUPPLY Qty: 1 0RF Rx Instructions: As directed omeprazole 40 mg capsule,delayed release(DR/EC) 40 mg PO DAILY Qty: 90 1RF meloxicam 15 mg tablet 15 mg PO DAILY Qty: 90 1RF duloxetine 30 mg capsule,delayed release(DR/EC) 30 mg PO DAILY Qty: 90 1RF oxycodone 20 mg tablet 20 mg PO Q6H PRN (Reason: pain) 30 Days Qty: 120 0RF morphine 100 mg tablet extended release 100 mg PO BID 30 Days Qty: 60 0RF nitroglycerin [Nitrostat] 0.4 mg Tablet, Sublingual 0.4 mg SUBLINGUAL Q5M PRN (Reason: Chest Pain) Rx Instructions: do not exceed 3 doses per episode cyanocobalamin (vitamin B-12) [Vitamin B-12] 500 mcg Tablet 500 mcg PO DAILY aspirin 81 mg Tablet,Chewable 81 mg PO QAM Tibsovo 250 mg tablet 250 mg PO DAILY methocarbamol 500 mg tablet 1,000 mg PO Q8H PRN (Reason: Spasms) torsemide 20 mg tablet 20 - 40 mg PO DAILY PRN (Reason: Edema) Dakin's Solution 0.5 % solution 1 applic topical BID PRN (Reason: unknown) metoprolol tartrate 25 mg tablet 12.5 mg PO BID lubiprostone 24 mcg capsule 24 mcg PO BID Rx Instructions: take 1 capsule BY MOUTH TWICE DAILY Discharge Orders: Discharge ED (Routine); Ordered 09/21/23 Ordered By: Lizeth Jameson Referrals: Cyril Ramsey MD [Primary Care Provider] - 1-3 days Discharge Diet: Advance as tolerated Discharge Activity: Resume usual activity Patient Instructions: Acute Nausea and Vomiting (ED) Coding Level of Care Code ED Loss Control Manager for Prachi Aguila
[2023-09-21] MEDS: sodium chloride 0.9% 1,000 ML 999 ML IV (13:52)
[2023-09-21] MEDS: ondansetron 2 mg/ML SDV 2 mL 4 MG IVP ×2 (13:53→14:49)
--- NOTE | 2023-09-21 13:53 | PC.NURSE ---
port a cath 19g right chest
[2023-09-21] MEDS: diphenoxylate/atropine Tablet 1 TAB PO (14:02)
[2023-09-21] MEDS: morphine 4 mg/mL SDV 1 mL IVP ×2 (14:02→15:47)
[2023-09-21 14:14] LABS: Hematocrit 32.7 % (36-47); Lymphocytes # 0.8 10^3/uL (0.8-4.8); Lymphocytes % 21.8 %; Mean Corpuscular HGB Conc 30.3 g/dL (30-55); Mean Corpuscular Hemoglobin 27.8 pg (27-33); Mean Corpuscular Volume 91.9 fl (85-98); Mean Platelet Volume 9.5 fL (7.4-10.4); Monocytes # 0.3 10^3/uL (0.2-0.9); Monocytes % 8.4 %; Neutrophils # 2.39 10^3/uL (1.8-7.7); Neutrophils % 69.5 %; Nucleated Red Blood Cells % 0 %; Platelet Count 202 10^3/cmm (157-399); Red Blood Count 3.56 10^6/uL (3.85-5.65); Red Cell Distribution Width 16.4 % (12.1-15.1); White Blood Count 3.44 10^3/uL (3.29-11.43)
[2023-09-21 14:31] LABS: Alanine Aminotransferase 7 U/L (0-33); Albumin Level 3.1 g/dL (3.5-5.2); Alkaline Phosphatase 120 U/L (35-105); Anion Gap 13.2 (5-19); Aspartate Amino Transferase 13 U/L (0-32); Blood Urea Nitrogen 17 mg/dL (8-23); Calcium 7.6 mg/dL (8.5-10.5); Carbon Dioxide 28 mmol/L (22-29); Chloride 98 mmol/L (98-107); Creatinine Clr Calc Pharmacy 72.4921; Globulin 3.3 g/dL (1.3-4.6); Glomerular Filtration Rate 83.5 mL/min (90-130); Glucose 121 mg/dL (65-115); Lipase 10 U/L (13-60); Osmolality Calculated 285 mOsm/kg (285-295); Potassium 3.2 mmol/L (3.5-5.1); Sodium 136 mmol/L (136-145); Total Bilirubin 0.3 mg/dL (0.15-1.2); Total Protein 6.4 g/dL (6.6-8.7)
--- NOTE | 2023-09-21 15:19 | XR_ITS ---
WS: [id number] Portable AP upright chest, 09/21/2023 Clinical Data: vomiting Comparison: Portable chest, 05/13/2022 Findings: No nodules, masses or effusions are seen. The heart is normal. The pulmonary vascularity is not increased. No pneumonia or pneumothorax is seen. There is a small right anterior jugular venous catheter which ends in the superior cava. The descending thoracic aorta shows mild tortuosity. XR/XR chest 1V portable [id number] Impression: Atherosclerosis.
[2023-09-21] MEDS: iohexol 350 mg/mL 500 mL Btl (per mL) IV (15:31)
== END 2023-09-21 17:08 | disposition home or self-care (01) ==
PROVIDERS: Emergency Provider Emergency Medicine; PCP Family Medicine
DX: R11.11 Vomiting without nausea (principal); Z79.82 Long term (current) use of aspirin; Z87.891 Personal history of nicotine dependence; I25.10 Atherosclerotic heart disease of native coronary artery without angina pectoris; J44.9 Chronic obstructive pulmonary disease, unspecified; I11.0 Hypertensive heart disease with heart failure; I50.30 Unspecified diastolic (congestive) heart failure; Z99.81 Dependence on supplemental oxygen
CPT/HCPCS: 71045; 74177; 80053; 83690; 85025; 96361; 96374; 96375; 96376; 99285; J1642; J2270; J2405; J7030; Q9967

== ENCOUNTER 2023-09-27 11:46 | Oncology outpatient (recurring) (ONCR) | payer MEDICARE, SELFPAY ==
[2023-09-27 12:17] LABS: Basophils % 0.5 %; Eosinophils % 0.5 %; Hematocrit 30.7 % (36-47); Lymphocytes # 1.2 10^3/uL (0.8-4.8); Lymphocytes % 19.2 %; Mean Corpuscular HGB Conc 30.3 g/dL (30-55); Mean Corpuscular Hemoglobin 27.9 pg (27-33); Mean Corpuscular Volume 92.2 fl (85-98); Mean Platelet Volume 9.7 fL (7.4-10.4); Monocytes # 0.6 10^3/uL (0.2-0.9); Monocytes % 9.6 %; Neutrophils # 4.42 10^3/uL (1.8-7.7); Neutrophils % 69.3 %; Nucleated Red Blood Cells % 0 %; Platelet Count 210 10^3/cmm (157-399); Red Blood Count 3.33 10^6/uL (3.85-5.65); Red Cell Distribution Width 16.7 % (12.1-15.1); White Blood Count 6.37 10^3/uL (3.29-11.43)
[2023-09-27 12:32] LABS: Alanine Aminotransferase 16 U/L (0-33); Albumin Level 3.4 g/dL (3.5-5.2); Alkaline Phosphatase 133 U/L (35-105); Anion Gap 11.5 (5-19); Aspartate Amino Transferase 19 U/L (0-32); Blood Urea Nitrogen 17 mg/dL (8-23); Calcium 7.8 mg/dL (8.5-10.5); Carbon Dioxide 31 mmol/L (22-29); Chloride 100 mmol/L (98-107); Globulin 2.9 g/dL (1.3-4.6); Glomerular Filtration Rate 83.5 mL/min (90-130); Glucose 123 mg/dL (65-115); Osmolality Calculated 291 mOsm/kg (285-295); Potassium 3.5 mmol/L (3.5-5.1); Sodium 139 mmol/L (136-145); Total Bilirubin 0.6 mg/dL (0.15-1.2); Total Protein 6.3 g/dL (6.6-8.7)
== END 2023-10-14 23:59 | disposition home or self-care (01) ==
LOC: RAD 11:46 → ONCMED 09-29 09:23
PROVIDERS: Nurse Practitioner Family; PCP Family Medicine; Visit Provider Internal Medicine Medical Oncology
DX: Z95.828 Presence of other vascular implants and grafts (principal); Z79.899 Other long term (current) drug therapy; C49.21 Malignant neoplasm of connective and soft tissue of right lower limb, including hip; Z87.891 Personal history of nicotine dependence; Z92.3 Personal history of irradiation; D69.6 Thrombocytopenia, unspecified; R10.31 Right lower quadrant pain; R93.89 Abnormal findings on diagnostic imaging of other specified body structures; E83.51 Hypocalcemia
CPT/HCPCS: 36591; 80053; 85025; 99214

== ENCOUNTER → 2023-09-29 08:22 | Outpatient (BNVA) | payer MEDICARE, SELFPAY | PROVIDERS: PCP Family Medicine; Visit Provider Thoracic Surgery (Cardiothoracic Vascular Surgery) | DX: T81.31XD Disruption of external operation (surgical) wound, not elsewhere classified, subsequent encounter (principal); Y83.8 Other surgical procedures as the cause of abnormal reaction of the patient, or of later complication, without mention of misadventure at the time of the procedure | CPT/HCPCS: 97597; A6248 ==

== ENCOUNTER → 2023-10-06 08:49 | Outpatient (BNVA) | payer MEDICARE, SELFPAY | PROVIDERS: PCP Family Medicine; Visit Provider Thoracic Surgery (Cardiothoracic Vascular Surgery) | DX: T81.31XD Disruption of external operation (surgical) wound, not elsewhere classified, subsequent encounter (principal); Y83.8 Other surgical procedures as the cause of abnormal reaction of the patient, or of later complication, without mention of misadventure at the time of the procedure; L97.111 Non-pressure chronic ulcer of right thigh limited to breakdown of skin | CPT/HCPCS: 97597 ==

== ENCOUNTER → 2023-10-13 08:41 | Outpatient (BNVA) | payer MEDICARE, SELFPAY | PROVIDERS: PCP Family Medicine; Visit Provider Thoracic Surgery (Cardiothoracic Vascular Surgery) | DX: T81.31XD Disruption of external operation (surgical) wound, not elsewhere classified, subsequent encounter (principal); Y83.8 Other surgical procedures as the cause of abnormal reaction of the patient, or of later complication, without mention of misadventure at the time of the procedure; S30.821D Blister (nonthermal) of abdominal wall, subsequent encounter; X58.XXXD Exposure to other specified factors, subsequent encounter | CPT/HCPCS: 97597 ==

== ENCOUNTER → 2023-10-20 08:00 | Outpatient (BNVA) | payer MEDICARE, SELFPAY | PROVIDERS: PCP Family Medicine; Visit Provider Thoracic Surgery (Cardiothoracic Vascular Surgery) | DX: T81.31XD Disruption of external operation (surgical) wound, not elsewhere classified, subsequent encounter (principal); Y83.8 Other surgical procedures as the cause of abnormal reaction of the patient, or of later complication, without mention of misadventure at the time of the procedure; I89.0 Lymphedema, not elsewhere classified; L98.491 Non-pressure chronic ulcer of skin of other sites limited to breakdown of skin | CPT/HCPCS: 97597; A6248 ==

== ENCOUNTER → 2023-10-27 07:59 | Outpatient (BNVA) | payer MEDICARE, SELFPAY | PROVIDERS: PCP Family Medicine; Visit Provider Thoracic Surgery (Cardiothoracic Vascular Surgery) | DX: I96 Gangrene, not elsewhere classified (principal); T81.31XD Disruption of external operation (surgical) wound, not elsewhere classified, subsequent encounter; Y83.8 Other surgical procedures as the cause of abnormal reaction of the patient, or of later complication, without mention of misadventure at the time of the procedure; I89.0 Lymphedema, not elsewhere classified; S30.821D Blister (nonthermal) of abdominal wall, subsequent encounter; X58.XXXD Exposure to other specified factors, subsequent encounter | CPT/HCPCS: 97597 ==

== ENCOUNTER 2023-11-03 08:40 | Emergency (ER) | payer MEDICARE, SELFPAY ==
[2023-11-03 08:49] VITALS: BP 154/71; PULSE 88; RESP 18; TEMP 36.8; O2SAT 94; BMI 34.0
--- NOTE | 2023-11-03 09:35 | ED_ITS ---
HPI - Female Genitourinary 2 General: Chief complaint: Urogenital-Female Stated complaint: Dr. Sheehan sent over, bladder issues Time Seen by Provider: 11/03/23 08:47 History of Present Illness: Six 8-year-old female presents emergency room from wound care clinic. She recently had a CT done showed protrusion of the bladder into the right femoral sheath and inguinal region. Not particularly identified as a diverticulum. This CT was done on September 20. She is seen Dr. Goddard this morning the wound care clinic for wounds was actually doing fairly well she has worn her groin when her abdomen and one on her side. He had sent her over here because she appears to be retaining urine she has had some dysuria and urgency recently. She has not yet seen urology. She has had some subjective low-grade fever at home. No sweats or chills. MD elicited complaint: difficulty urinating Onset (ago): week(s) Urinary symptoms: Difficulty Urinating Exacerbating factors: urination Associated symptoms: Deny abdominal pain, short of breath, fevers/chills, headache(s), nausea, rash, seizures, syncope, vaginal bleeding, vaginal discharge or weakness Treatment prior to arrival: none Review of Systems 2 Const: Denies: fever(s) or chills Card: Denies: chest pain or syncope Resp: Denies: dyspnea GI: Denies: abdominal pain or nausea : Reports: difficulty voiding and urinary urgency; Denies: dysuria, urinary frequency or vaginal discharge Musc: Denies: neck pain or back pain Skin/Breast: Denies: rash Neuro: Denies: headache(s) PFSH ED 2 PFSH: Medical History Weakness of left shoulder Cancer related pain Nausea and vomiting REINA (acute kidney injury) CAD (coronary artery disease) Pneumonia Oxygen dependent Essential hypertension Degenerative arthritis Chronic pain of right knee Chronic narcotic use COPD (chronic obstructive pulmonary disease) History of nonmelanoma skin cancer Heart failure with preserved ejection fraction 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 Bean Family History Mother Family history of premature coronary artery disease Hypertension Brother Cancer Hypertension Sister Cancer Father Family history of premature coronary artery disease Hypertension Denies family history of Diabetes CAD (coronary artery disease) Clotting disorder Dementia Hyperlipidemia Psychiatric illness Chronic kidney disease (CKD) Suicide Anesthesia complication Bleeding disorder Lung disease Stroke Social History Smoking and tobacco/nicotine status: unknown if used tobacco/nicotine Quit status (tobacco/nicotine): has quit using Year quit tobacco: 2016 Former quit date comment: 2ppd x 36 years Second hand smoke exposure: No Alcohol intake: never Substance/Drug Use: never Adopted: No Caregiver/support person: Yes Lives independently: Yes Marital status: Single Current occupational status: employed 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 Physical Exam 2 Const: COMMON NORMALS: no acute distress GENERAL APPEARANCE: cooperative and comfortable ORIENTATION/CONSCIOUSNESS: Yes awake, Yes oriented to person, Yes oriented to place and Yes oriented to time HENMT: COMMON NORMALS: normocephalic, atraumatic and hearing grossly normal bilaterally HEAD & SCALP: normocephalic and atraumatic Resp: COMMON NORMALS: normal respiratory effort, No retractions, No use of accessory muscles and clear to auscultation bilaterally AUSCULTATION: clear to auscultation bilaterally Cardio: COMMON NORMALS: regular rate, regular rhythm and No murmurs present (Cardio) RATE: regular rate RHYTHM: regular rhythm GI: COMMON NORMALS: Soft to palpation and No hepatosplenomegaly present A USCULTATION: Yes normoactive bowel sounds PALPATION: Yes Soft to palpation, No Tenderness to palpation present (GI), No Guarding due to palpation present (GI) and Yes No hepatosplenomegaly present : SPECULUM EXAM - VAGINA: No vaginal bleeding OB/EXTERNAL & SPECULUM: No vaginal bleeding Extremity: COMMON NORMALS: normal to inspection, capillary refill normal, no clubbing, cyanosis or edema, no calf tenderness and no pedal edema Neuro: SENSORIUM/ORIENTATION: Yes oriented to person, Yes oriented to place and Yes oriented to time Skin: COMMON NORMALS: no rashes or lesions noted GENERAL SKIN EXAM: no rashes or lesions noted Course 2 Vital Signs: Vital signs: Vital Signs Temperature 98.2 F 11/03/23 08:49 Pulse Rate 82 11/03/23 10:55 Respiratory Rate 18 11/03/23 08:49 Blood Pressure 151/93 11/03/23 10:55 Pulse Oximetry 96 11/03/23 10:55 Oxygen Delivery Me thod Room Air 11/03/23 10:55 MDM - Female Medical Decision Making Urinary retention with placement of Stewart were able to get almost the thousand out we did clamp part way through the drainage. Will change to a Stewart bag discharge home. Patient did have 5-10 white blood cells per high-power field we will put on antibiotics prophylactically until culture is back refer to urology Medical Records I reviewed the patient's medical records. Lab Data I reviewed the patient's lab results. 11/03/23 10:03 11/03/23 10:03 Laboratory Results WBC 4.75 10^3/uL (3.29-11.43) 11/03/23 10:03 RBC 3.87 10^6/uL (3.85-5.65) 11/03/23 10:03 Hgb 10.90 g/dL (11.27-16.99) L 11/03/23 10:03 Hct 35.2 % (36-47) L 11/03/23 10:03 MCV 91.0 fl (85-98) 11/03/23 10:03 MCH 28.2 pg (27-33) 11/03/23 10:03 MCHC 31.0 g/dL (30-55) 11/03/23 10:03 RDW 16.4 % (12.1-15.1) H 11/03/23 10:03 Plt Count 213 10^3/cmm (157-399) 11/03/23 10:03 MPV 9.2 fL (7.4-10.4) 11/03/23 10:03 Neut % (Auto) 63.8 % 11/03/23 10:03 Lymph % (Auto) 23.2 % 11/03/23 10:03 [place] % (Auto) 10.5 % 11/03/23 10:03 Eos % (Auto) 1.7 % 11/03/23 10:03 Baso % (Auto) 0.6 % 11/03/23 10:03 Neut # (Auto) 3.03 10^3/uL (1.8-7.7) 11/03/23 10:03 Lymph # (Auto) 1.1 10^3/uL (0.8-4.8) 11/03/23 10:03 [place] # (Auto) 0.5 10^3/uL (0.2-0.9) 11/03/23 10:03 Eos # (Auto) 0.1 10^3/uL (0.0-0.8) 11/03/23 10:03 Baso # (Auto) 0.0 10^3/uL (0.0-0.1) 11/03/23 10:03 Nucleated RBC % (auto) 0 % 11/03/23 10:03 Nucleated RBCs # 0.0 /100WBC 11/03/23 10:03 Sodium 140 mmol/L (136-145) 11/03/23 10:03 Potassium 4.4 mmol/L (3.5-5.1) 11/03/23 10:03 Chloride 101 mmol/L (98-107) 11/03/23 10:03 Carbon Dioxide 29 mmol/L (22-29) 11/03/23 10:03 Anion Gap 14.4 (5-19) 11/03/23 10:03 BUN 14 mg/dL (8-23) 11/03/23 10:03 Creatinine 0.7 mg/dL (0.5-0.9) 11/03/23 10:03 GFR Calculation 83.5 mL/min (90-130) L 11/03/23 10:03 Glucose 108 mg/dL (65-115) 11/03/23 10:03 Calculated Osmolality 291 mOsm/kg (285-295) 11/03/23 10:03 Calcium 8.3 mg/dL (8.5-10.5) L 11/03/23 10:03 Total Bilirubin 0.3 mg/dL (0.15-1.2) 11/03/23 10:03 AST 20 U/L (0-32) 11/03/23 10:03 ALT 15 U/L (0-33) 11/03/23 10:03 Alkaline Phosphatase 139 U/L (35-105) H 11/03/23 10:03 Total Protein 7.2 g/dL (6.6-8.7) 11/03/23 10:03 Albumin 3.9 g/dL (3.5-5.2) 11/03/23 10:03 Globulin 3.3 g/dL (1.3-4.6) 11/03/23 10:03 Urine Color Yellow (Yellow) 11/03/23 09:10 Urine Appearance Clear (CLEAR) 11/03/23 09:10 Urine pH 6.5 (5-7) 11/03/23 09:10 Ur Specific [place] 1.010 (1.005-1.030) 11/03/23 09:10 Urine Protein Neg (Negative) 11/03/23 09:10 Urine Glucose (UA) Norm (Normal) 11/03/23 09:10 Urine Ketones Negative (Negative) 11/03/23 09:10 Urine Blood Neg (Negative) 11/03/23 09:10 Urine Nitrate Negative (Negative) 11/03/23 09:10 Urine Bilirubin Neg (Negative) 11/03/23 09:10 Urine Urobilinogen Norm mg/dL (Negative) 11/03/23 09:10 Ur Leukocyte Esterase Trace (Negative) H 11/03/23 09:10 Urine RBC None /hpf (0-2) 11/03/23 09:10 Urine WBC 5-10 /hpf (0-5) H 11/03/23 09:10 Ur Squamous Epith Cells 0-4 /hpf (0-5) H 11/03/23 09:10 Ur Transition Epith Cell 0-4 /hpf 11/03/23 09:10 Ur Renal Epithelial Cell Rare /hpf 11/03/23 09:10 Amorphous Sediment Not Reportable 11/03/23 09:10 Urine Bacteria None /hpf (NONE) 11/03/23 09:10 Urine Mucus None /hpf 11/03/23 09:10 No radiology studies performed this visit Discharge Plan Discharge Patient Disposition: Home Clinical Impression: Urinary retention, Cystitis Condition: Stable Prescriptions: New Macrobid 100 mg capsule 100 mg PO BID 7 Days Qty: 14 0RF Rx Instructions: must administer with a meal/food No Action acetaminophen 325 mg capsule 1,300 mg PO BID PRN (Reason: Pain) tamsulosin 0.4 mg capsule 0.4 mg PO DAILY Qty: 60 3RF guaifenesin [Mucinex] 1,200 mg tablet extended release 12hr 1,200 mg PO BID escitalopram oxalate 20 mg tablet 20 mg PO DAILY Qty: 90 1RF naloxone [Narcan] 4 mg/actuation spray,non-aerosol 4 mg intranasal Q2M Qty: 2 3RF Rx Instructions: spray 1 dose into ONE nostril; alternate nostrils w each dose until help arrives (DME) Compression Supporting Hose See Rx Instructions .Route .MEDSUPPLY Qty: 1 0RF Rx Instructions: As directed omeprazole 40 mg capsule,delayed release(DR/EC) 40 mg PO DAILY Qty: 90 1RF meloxicam 15 mg tablet 15 mg PO DAILY Qty: 90 1RF duloxetine 30 mg capsule,delayed release(DR/EC) 30 mg PO DAILY Qty: 90 1RF oxycodone 20 mg tablet 20 mg PO Q6H PRN (Reason: pain) 30 Days Qty: 120 0RF morphine 100 mg tablet extended release 100 mg PO BID 30 Days Qty: 60 0RF gabapentin 600 mg tablet 600 mg PO BID Qty: 60 0RF Dose Instruction: TAKE 1 TABLET BY MOUTH THREE TIMES DAILY nitroglycerin [Nitrostat] 0.4 mg Tablet, Sublingual 0.4 mg SUBLINGUAL Q5M PRN (Reason: Chest Pain) Rx Instructions: do not exceed 3 doses per episode cyanocobalamin (vitamin B-12) [Vitamin B-12] 500 mcg Tablet 500 mcg PO DAILY aspirin 81 mg Tablet,Chewable 81 mg PO QAM methocarbamol 500 mg tablet 1,000 mg PO Q8H PRN (Reason: Muscle Spasm) Rx Instructions: TAKE 2 TABLETS BY MOUTH EVERY 8 HOURS NEEDED FOR spasm torsemide 20 mg tablet 20 - 40 mg PO BID lubiprostone 24 mcg capsule 24 mcg PO BID lidocaine 5 % ointment See Rx Instructions .ROUTE .COMPLEX Rx Instructions: APPLY TOPICALLY EVERY DAY NEEDED FOR PAIN Tibsovo 250 mg tablet 250 mg PO DAILY metoprolol tartrate 25 mg tablet 12.5 mg PO BID ondansetron 4 mg tablet,disintegrating 4 mg PO Q6H PRN (Reason: nausea and vomiting) Qty: 14 0RF Discharge Orders: Discharge ED (Routine); Ordered 11/03/23 Ordered By: Garth Colin Referrals: Cyril Ramsey MD [Primary Care Provider] - Discharge Diet: Usual diet Discharge Activity: Increase activity as tolerated Patient Instructions: Opioid Safety, Pain Management Activity Restrictions/Additional Instructions: Thank you for choosing [facility] for your healthcare needs today. It is very important that you follow up as instructed or that you return to the Emergency Department should you have concerns or if your condition changes or worsens in any way. You were seen today for urinary retention. There is over 1000 mL of urine in your bladder when the Stewart catheter was placed. Will discharge you home with the Stewart catheter and leg bag in place. And will also make arrangements for you to follow-up with urology. In addition to this there were signs of a potential bladder infection the urine will be cultured and we will initially start you on Macrobid until the culture is resulted. Return if you have further problems. Coding Level of Care Code ED Letter Carrier for Prachi Aguila
[2023-11-03 09:39] LABS: Urine Appearance Clear (CLEAR); Urine Color Yellow (Yellow)
[2023-11-03 09:40] LABS: Add Urine Microscopic? YES; Bilirubin Urine Neg (Negative); Blood Urine Neg (Negative); Glucose Urine UA Norm (Normal); Ketones Urine Negative (Negative); Leukocyte Esterase Urine Trace (Negative); Nitrate Urine Negative (Negative); Protein Urine Neg (Negative); Urobilinogen Urine Norm (Negative); pH Urine 6.5 (5-7)
[2023-11-03 09:45] LABS: Add Urine Culture? No; Renal Epithelial Cells Urine RARE /hpf; Squamous Epithelial Cell Urine 0-4 /hpf (0-5); Transitional Epi Cells Urine 0-4 /hpf
[2023-11-03 10:12] LABS: Basophils % 0.6 %; Eosinophils # 0.1 10^3/uL (0.0-0.8); Eosinophils % 1.7 %; Hematocrit 35.2 % (36-47); Lymphocytes # 1.1 10^3/uL (0.8-4.8); Lymphocytes % 23.2 %; Mean Corpuscular Hemoglobin 28.2 pg (27-33); Mean Platelet Volume 9.2 fL (7.4-10.4); Monocytes # 0.5 10^3/uL (0.2-0.9); Monocytes % 10.5 %; Neutrophils # 3.03 10^3/uL (1.8-7.7); Neutrophils % 63.8 %; Nucleated Red Blood Cells % 0 %; Platelet Count 213 10^3/cmm (157-399); Red Blood Count 3.87 10^6/uL (3.85-5.65); Red Cell Distribution Width 16.4 % (12.1-15.1); White Blood Count 4.75 10^3/uL (3.29-11.43)
[2023-11-03 10:28] LABS: Alanine Aminotransferase 15 U/L (0-33); Albumin Level 3.9 g/dL (3.5-5.2); Alkaline Phosphatase 139 U/L (35-105); Anion Gap 14.4 (5-19); Aspartate Amino Transferase 20 U/L (0-32); Blood Urea Nitrogen 14 mg/dL (8-23); Calcium 8.3 mg/dL (8.5-10.5); Carbon Dioxide 29 mmol/L (22-29); Chloride 101 mmol/L (98-107); Creatinine Clr Calc Pharmacy 74.0554; Globulin 3.3 g/dL (1.3-4.6); Glomerular Filtration Rate 83.5 mL/min (90-130); Glucose 108 mg/dL (65-115); Osmolality Calculated 291 mOsm/kg (285-295); Potassium 4.4 mmol/L (3.5-5.1); Sodium 140 mmol/L (136-145); Total Bilirubin 0.3 mg/dL (0.15-1.2); Total Protein 7.2 g/dL (6.6-8.7)
[2023-11-03 10:55] VITALS: BP 151/93; PULSE 82; O2SAT 96
--- NOTE | 2023-11-03 11:21 | PC.NURSE ---
PT EDUCATED ON ULLOA CARE AND LEG BAG MAINTENANCE. PT VERBALIZED UNDERSTANDING.
== END 2023-11-03 11:21 | disposition home or self-care (01) ==
PROVIDERS: Emergency Provider Family Medicine; PCP Family Medicine
DX: R33.9 Retention of urine, unspecified (principal); N30.90 Cystitis, unspecified without hematuria; Z79.82 Long term (current) use of aspirin; Z87.891 Personal history of nicotine dependence; I25.10 Atherosclerotic heart disease of native coronary artery without angina pectoris; Z99.81 Dependence on supplemental oxygen; J44.9 Chronic obstructive pulmonary disease, unspecified; I11.0 Hypertensive heart disease with heart failure; I50.30 Unspecified diastolic (congestive) heart failure
CPT/HCPCS: 51798; 80053; 81001; 85025; 97597; 99283

== ENCOUNTER 2023-11-08 11:05 | Oncology outpatient (recurring) (ONCR) | payer MEDICARE, SELFPAY ==
[2023-11-08 11:43] LABS: Basophils % 0.6 %; Eosinophils # 0.1 10^3/uL (0.0-0.8); Eosinophils % 1.8 %; Hematocrit 36.5 % (36-47); Lymphocytes # 1.5 10^3/uL (0.8-4.8); Lymphocytes % 30.1 %; Mean Corpuscular HGB Conc 29.9 g/dL (30-55); Mean Corpuscular Hemoglobin 27.7 pg (27-33); Mean Corpuscular Volume 92.9 fl (85-98); Monocytes # 0.4 10^3/uL (0.2-0.9); Neutrophils # 2.83 10^3/uL (1.8-7.7); Neutrophils % 58.1 %; Nucleated Red Blood Cells % 0 %; Platelet Count 250 10^3/cmm (157-399); Red Blood Count 3.93 10^6/uL (3.85-5.65); Red Cell Distribution Width 16.6 % (12.1-15.1); White Blood Count 4.88 10^3/uL (3.29-11.43)
[2023-11-08 12:02] LABS: Alanine Aminotransferase 10 U/L (0-33); Albumin Level 3.9 g/dL (3.5-5.2); Alkaline Phosphatase 150 U/L (35-105); Anion Gap 17.2 (5-19); Aspartate Amino Transferase 17 U/L (0-32); Blood Urea Nitrogen 13 mg/dL (8-23); Calcium 8.7 mg/dL (8.5-10.5); Carbon Dioxide 29 mmol/L (22-29); Chloride 103 mmol/L (98-107); Globulin 3.2 g/dL (1.3-4.6); Glomerular Filtration Rate 99.7 mL/min (90-130); Glucose 132 mg/dL (65-115); Osmolality Calculated 300 mOsm/kg (285-295); Potassium 5.2 mmol/L (3.5-5.1); Sodium 144 mmol/L (136-145); Total Bilirubin 0.2 mg/dL (0.15-1.2); Total Protein 7.1 g/dL (6.6-8.7)
== END 2023-11-13 23:59 | disposition home or self-care (01) ==
PROVIDERS: PCP Family Medicine; Visit Provider Internal Medicine Medical Oncology
DX: C49.21 Malignant neoplasm of connective and soft tissue of right lower limb, including hip (principal); Z95.828 Presence of other vascular implants and grafts; Z79.899 Other long term (current) drug therapy; Z87.891 Personal history of nicotine dependence; Z92.3 Personal history of irradiation; D69.6 Thrombocytopenia, unspecified
CPT/HCPCS: 36591; 80053; 85025; 99214

== ENCOUNTER → 2023-11-10 08:04 | Outpatient (BNVA) | payer MEDICARE, SELFPAY | PROVIDERS: PCP Family Medicine; Visit Provider Thoracic Surgery (Cardiothoracic Vascular Surgery) | DX: I96 Gangrene, not elsewhere classified (principal); T81.31XD Disruption of external operation (surgical) wound, not elsewhere classified, subsequent encounter; Y83.8 Other surgical procedures as the cause of abnormal reaction of the patient, or of later complication, without mention of misadventure at the time of the procedure; I89.0 Lymphedema, not elsewhere classified | CPT/HCPCS: 97597 ==

== ENCOUNTER → 2023-11-24 08:11 | Outpatient (BNVA) | payer MEDICARE, SELFPAY | PROVIDERS: PCP Family Medicine; Visit Provider Thoracic Surgery (Cardiothoracic Vascular Surgery) | DX: T81.31XD Disruption of external operation (surgical) wound, not elsewhere classified, subsequent encounter (principal); Y83.8 Other surgical procedures as the cause of abnormal reaction of the patient, or of later complication, without mention of misadventure at the time of the procedure; I89.0 Lymphedema, not elsewhere classified | CPT/HCPCS: 97597 ==

== ENCOUNTER → 2023-12-01 08:00 | Outpatient (BNVA) | payer MEDICARE, SELFPAY | PROVIDERS: PCP Family Medicine; Visit Provider Thoracic Surgery (Cardiothoracic Vascular Surgery) | DX: N31.2 Flaccid neuropathic bladder, not elsewhere classified (principal); T81.31XD Disruption of external operation (surgical) wound, not elsewhere classified, subsequent encounter; Y83.8 Other surgical procedures as the cause of abnormal reaction of the patient, or of later complication, without mention of misadventure at the time of the procedure; I89.0 Lymphedema, not elsewhere classified | CPT/HCPCS: 97597 ==

== ENCOUNTER → 2023-12-08 08:04 | Outpatient (BNVA) | payer MEDICARE, SELFPAY | PROVIDERS: PCP Family Medicine; Visit Provider Thoracic Surgery (Cardiothoracic Vascular Surgery) | DX: T81.31XD Disruption of external operation (surgical) wound, not elsewhere classified, subsequent encounter; Y83.8 Other surgical procedures as the cause of abnormal reaction of the patient, or of later complication, without mention of misadventure at the time of the procedure | CPT/HCPCS: 97597 ==

== ENCOUNTER 2023-12-13 13:15 | Oncology outpatient (recurring) (ONCR) | payer MEDICARE, SELFPAY ==
--- NOTE | 2023-11-16 16:30 | CTR_ITS ---
PROCEDURE INFORMATION: Exam: CT Chest With Contrast; Diagnostic Exam date and time: 11/16/2023 4:51 PM Age: 68 years old Clinical indication: Condition or disease; Cancer; Other: Sarcoma f/u; Primary cancer: Sarcome R knee area; Prior surgery; Surgery date: 6+ months; Surgery type: Gb, appy, hyst, krystin hips, port TECHNIQUE: Imaging protocol: Diagnostic computed tomography of the chest with contrast. Radiation optimization: All CT scans at this facility use at least one of these dose optimization techniques: automated exposure control; mA and/or kV adjustment per patient size (includes targeted exams where dose is matched to clinical indication); or iterative reconstruction. Contrast material: OMNI 350; Contrast volume: 100 ml; Contrast route: INTRAVENOUS (IV); Other contrast: Oral, WATER SOLUBLE, 950; COMPARISON: CT chest w con* [id number] 06/30/2023 5:14 PM RADIATION DOSE METRICS: Total DLP (mGy-cm): 1225.24 FINDINGS: Lungs: Mixed solid and infiltrative masslike density in the right mid lung occupies a similar volume as before but contains a 14 mm solid core. Mild fibrosis in medial left upper lobe also seen. Pleural spaces: Unremarkable. No pneumothorax. No pleural effusion. Heart: Unremarkable. No cardiomegaly. No pericardial effusion. Lymph nodes: Visible central lymph nodes are not pathologically enlarged. They are slightly smaller than before. Vasculature: Unremarkable. No aortic aneurysm. Bones/joints: Unremarkable. No acute fracture. Soft tissues: Unremarkable. PROCEDURE INFORMATION: Exam: CT Abdomen And Pelvis With Contrast Exam date and time: 11/16/2023 4:51 PM Age: 68 years old Clinical indication: Condition or disease; Cancer; Other: Sarcoma f/u; Primary cancer: Sarcome R knee area; Prior surgery; Surgery date: 6+ months; Surgery type: Gb, appy, hyst, krystin hips, port TECHNIQUE: Imaging protocol: Computed tomography of the abdomen and pelvis with contrast. Radiation optimization: All CT scans at this facility use at least one of these dose optimization techniques: automated exposure control; mA and/or kV adjustment per patient size (includes targeted exams where dose is matched to clinical indication); or iterative reconstruction. Contrast material: OMNI 350; Contrast volume: 100 ml; Contrast route: INTRAVENOUS (IV); Other contrast: Oral, WATER SOLUBLE, 950; COMPARISON: CT abdomen pelvis w con* [id number] 09/21/2023 3:27 PM RADIATION DOSE METRICS: Total DLP (mGy-cm): 1225.24 FINDINGS: Liver: Hepatic steatosis. Gallbladder and biliary ducts: Cholecystectomy. Pancreas: Normal. No ductal dilation. Spleen: Normal. No splenomegaly. Adrenal glands: Bilateral adrenal metastasis slightly improved. The bilateral adrenal masses remain present, the right slightly smaller than before. Kidneys and ureters: Bilateral the rounded areas of diminished attenuation within the left kidney, unchanged from before and probably high density cysts. Stomach and bowel: Unremarkable. No obstruction. No mucosal thickening. Appendix: No evidence of appendicitis. Intraperitoneal space: Unremarkable. No free air. No significant fluid collection. Vasculature: Unremarkable. No abdominal aortic aneurysm. Lymph nodes: Unremarkable. No enlarged lymph nodes. Urinary bladder: Unremarkable as visualized. Reproductive: Unremarkable as visualized. Bones/joints: Bilateral hip replacement. Soft tissues: Skin thickening and fatty infiltration in the upper thigh, suspected to be related to prior surgery and treatment. CT/CT chest abdpel w/*[id number] IMPRESSION: An infiltrate in the left mid lung now has a more solid component than before. Continued follow-up recommended. IMPRESSION: 1. No acute findings. 2. The right adrenal mass is slightly smaller than before. These may represent either nonfunctioning adenomata or metastatic disease. COMMENTS: Consistent with the [employer]'s Incidental Findings Committee white paper (J Am Clinton Radiol 2018): Any incidental renal lesion less than 1 cm or classified as too small to characterize, or any incidental cystic renal lesion characterized as simple-appearing, is likely benign. No follow-up imaging is recommended for these lesions per consensus recommendations based on imaging criteria.
[2023-11-16] MEDS: iohexol 350 mg/mL 500 mL Btl (per mL) PO (16:49)
[2023-11-16] MEDS: iohexol 350 mg/mL 500 mL Btl (per mL) IV (17:04)
[2023-12-12 13:50] LABS: Basophils % 0.4 %; Eosinophils # 0.1 10^3/uL (0.0-0.8); Eosinophils % 1.7 %; Hematocrit 36.3 % (36-47); Lymphocytes # 1.3 10^3/uL (0.8-4.8); Lymphocytes % 27.1 %; Mean Corpuscular HGB Conc 30.6 g/dL (30-55); Mean Corpuscular Hemoglobin 28.1 pg (27-33); Mean Corpuscular Volume 91.9 fl (85-98); Mean Platelet Volume 9.2 fL (7.4-10.4); Monocytes # 0.4 10^3/uL (0.2-0.9); Neutrophils # 2.95 10^3/uL (1.8-7.7); Neutrophils % 61.4 %; Nucleated Red Blood Cells % 0 %; Platelet Count 277 10^3/cmm (157-399); Red Blood Count 3.95 10^6/uL (3.85-5.65); Red Cell Distribution Width 16.4 % (12.1-15.1)
[2023-12-12 14:11] LABS: Alanine Aminotransferase 9 U/L (0-33); Albumin Level 4.1 g/dL (3.5-5.2); Alkaline Phosphatase 136 U/L (35-105); Anion Gap 14.2 (5-19); Aspartate Amino Transferase 14 U/L (0-32); Blood Urea Nitrogen 18 mg/dL (8-23); Calcium 9.1 mg/dL (8.5-10.5); Carbon Dioxide 30 mmol/L (22-29); Chloride 98 mmol/L (98-107); Globulin 3.2 g/dL (1.3-4.6); Glomerular Filtration Rate 83.5 mL/min (90-130); Glucose 114 mg/dL (65-115); Osmolality Calculated 289 mOsm/kg (285-295); Potassium 4.2 mmol/L (3.5-5.1); Sodium 138 mmol/L (136-145); Total Bilirubin 0.4 mg/dL (0.15-1.2); Total Protein 7.3 g/dL (6.6-8.7)
[2023-12-12 14:14] VITALS: BP 155/71; PULSE 58; RESP 16; TEMP 36.6; O2SAT 96
== END 2023-12-14 23:59 | disposition home or self-care (01) ==
PROVIDERS: PCP Family Medicine; Visit Provider Internal Medicine Medical Oncology
DX: C49.21 Malignant neoplasm of connective and soft tissue of right lower limb, including hip (principal); Z95.828 Presence of other vascular implants and grafts; Z79.899 Other long term (current) drug therapy; Z87.891 Personal history of nicotine dependence; Z92.3 Personal history of irradiation; R10.31 Right lower quadrant pain; R93.89 Abnormal findings on diagnostic imaging of other specified body structures
CPT/HCPCS: 71260; 74177; 80053; 85025; 99214; Q9967

== ENCOUNTER → 2023-12-15 08:00 | Outpatient (BNVA) | payer MEDICARE, SELFPAY | PROVIDERS: PCP Family Medicine; Visit Provider Thoracic Surgery (Cardiothoracic Vascular Surgery) | DX: T81.31XD Disruption of external operation (surgical) wound, not elsewhere classified, subsequent encounter (principal); Y83.8 Other surgical procedures as the cause of abnormal reaction of the patient, or of later complication, without mention of misadventure at the time of the procedure ==

== ENCOUNTER → 2023-12-26 11:12 | Outpatient (BNVA) | payer MEDICARE, SELFPAY | PROVIDERS: PCP Family Medicine; Visit Provider Nurse Practitioner | DX: M75.122 Complete rotator cuff tear or rupture of left shoulder, not specified as traumatic (principal); M19.012 Primary osteoarthritis, left shoulder; M75.02 Adhesive capsulitis of left shoulder; R29.898 Other symptoms and signs involving the musculoskeletal system; M62.838 Other muscle spasm | CPT/HCPCS: 99214 ==

== ENCOUNTER 2024-01-10 13:21 | Oncology outpatient (recurring) (ONCR) | payer MEDICARE, SELFPAY ==
[2024-01-10 13:35] LABS: Basophils % 0.4 %; Eosinophils # 0.1 10^3/uL (0.0-0.8); Eosinophils % 1.5 %; Hematocrit 34.7 % (36-47); Lymphocytes # 1.5 10^3/uL (0.8-4.8); Lymphocytes % 27.9 %; Mean Corpuscular HGB Conc 31.1 g/dL (30-55); Mean Corpuscular Hemoglobin 29.6 pg (27-33); Mean Corpuscular Volume 95.1 fl (85-98); Mean Platelet Volume 9.4 fL (7.4-10.4); Monocytes # 0.5 10^3/uL (0.2-0.9); Monocytes % 9.5 %; Neutrophils # 3.17 10^3/uL (1.8-7.7); Neutrophils % 60.1 %; Nucleated Red Blood Cells % 0 %; Platelet Count 233 10^3/cmm (157-399); Red Blood Count 3.65 10^6/uL (3.85-5.65); Red Cell Distribution Width 16.5 % (12.1-15.1); White Blood Count 5.27 10^3/uL (3.29-11.43)
[2024-01-10 13:51] LABS: Alanine Aminotransferase 9 U/L (0-33); Albumin Level 4.1 g/dL (3.5-5.2); Alkaline Phosphatase 157 U/L (35-105); Anion Gap 13.4 (5-19); Aspartate Amino Transferase 15 U/L (0-32); Blood Urea Nitrogen 21 mg/dL (8-23); Calcium 8.8 mg/dL (8.5-10.5); Carbon Dioxide 34 mmol/L (22-29); Chloride 95 mmol/L (98-107); Globulin 2.8 g/dL (1.3-4.6); Glomerular Filtration Rate 71.5 mL/min (90-130); Glucose 122 mg/dL (65-115); Osmolality Calculated 290 mOsm/kg (285-295); Potassium 4.4 mmol/L (3.5-5.1); Sodium 138 mmol/L (136-145); Total Bilirubin 0.2 mg/dL (0.15-1.2); Total Protein 6.9 g/dL (6.6-8.7)
== END 2024-01-14 23:59 | disposition home or self-care (01) ==
PROVIDERS: PCP Family Medicine; Visit Provider Internal Medicine Medical Oncology
DX: C49.21 Malignant neoplasm of connective and soft tissue of right lower limb, including hip (principal); Z95.828 Presence of other vascular implants and grafts; Z79.899 Other long term (current) drug therapy; Z87.891 Personal history of nicotine dependence; Z92.3 Personal history of irradiation; Z79.69 Long term (current) use of other immunomodulators and immunosuppressants
CPT/HCPCS: 36591; 80053; 85025; 99214

== ENCOUNTER → 2024-02-01 11:26 | Outpatient (BNVA) | payer MEDICARE, SELFPAY | PROVIDERS: PCP Family Medicine; Visit Provider Nurse Practitioner | DX: M75.122 Complete rotator cuff tear or rupture of left shoulder, not specified as traumatic (principal); M19.012 Primary osteoarthritis, left shoulder; M75.02 Adhesive capsulitis of left shoulder; R29.898 Other symptoms and signs involving the musculoskeletal system; M62.838 Other muscle spasm | CPT/HCPCS: 73030; 99214 ==

== ENCOUNTER → 2024-02-13 14:08 | Outpatient (BNVA) | payer MEDICARE, SELFPAY | PROVIDERS: PCP Family Medicine; Visit Provider Nurse Practitioner | DX: M19.012 Primary osteoarthritis, left shoulder (principal); M75.122 Complete rotator cuff tear or rupture of left shoulder, not specified as traumatic; R29.898 Other symptoms and signs involving the musculoskeletal system; M75.02 Adhesive capsulitis of left shoulder; M62.838 Other muscle spasm | CPT/HCPCS: 99214 ==

== ENCOUNTER 2024-02-14 10:14 | Emergency (ER) | payer MEDICARE, MEDICAID, SELFPAY ==
[2024-02-14] VITALS (9 sets, daily range): BP systolic 109–183; BP diastolic 53–98; PULSE 97–109; RESP 16–26; TEMP 36.8; O2SAT 91–96; BMI 38.0
--- NOTE | 2024-02-14 10:50 | ECG_ITS ---
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 Measurements Intervals [place] Rate: 106 P: 71 TX: 190 QRS: 46 QRSD: 141 T: 105 QT: 382 QTc: 508 Interpretive Statements SINUS TACHYCARDIA LEFT BUNDLE BRANCH BLOCK [120+ ms QRS DURATION, 80+ ms Q/S IN V1/V2, 85+ ms R IN I/aVL/V5/V6] Compared to ECG 01/17/2024 11:26:40 Sinus rhythm no longer present Electronically Signed On 02-14-2024 16:24:50 CDT by Pawan Staton M.D. [id number] f
--- NOTE | 2024-02-14 10:50 | XR_ITS ---
WS: [id number] Exam: XR chest 1V portable [id number] Date/Time of Exam: 02/14/2024 10:53 AM Reason For Exam: sob, weight gain, swelling Comparison 09/21/2023. Lungs are fully expanded and clear. Normal cardiomediastinal silhouette. No pleural effusions. A righ t-sided central line is noted ending in the lower one third of the SVC. Bony structures are intact. XR/XR chest 1V portable [id number] IMPRESSION: 1. No acute cardiopulmonary finding.
--- NOTE | 2024-02-14 10:51 | USCV_ITS ---
Dennise Funes Age: 68 Gender: F : 1955 Exam Date: 02/14/2024 11:30 Ordering Phys: Pamella Pineda Technologist: [place] [facility] [place]: edema PROCEDURES: Venous duplex imaging was performed in only the right lower extremity. On the right side, the common femoral, superficial femoral, profunda femoral, popliteal, posterior tibial, greater saphenous veins and the peroneal trunk were identified and interrogated in the standard fashion. These veins were found to be easily compressible with spontaneous blood flow. No evidence of insufficiency or thrombus noted. FINDINGS: pt with hx of CA. Pt had multiple lymph nodes and surgeries to fix infections in rt groin. this is somewhat limited. There is no evidence of dvt. Very difficult to obtain sagittal images in groin CONCLUSIONS Limited exam. No DVT right lower extremity. Dr. Radha Sanchez DO (Electronically Signed) Final Date: 14 February 2024 12:07 S
--- NOTE | 2024-02-14 10:54 | W.ED.SOB ---
HPI - SOB/Dyspnea General: Chief Complaint: Shortness of Breath/Dyspnea Stated Complaint: SOB Time Seen by Provider: 02/14/24 10:32 Source: patient Mode of arrival: EMS History of Present Illness: HPI Narrative: Patient is a 68-year-old with a history of of metastatic pleomorphic sarcoma, HTN, YOLY, HFpEF, tobacco use disorder, COPD, and GERD here for complaints of edema and shortness of breath. She states she has a history of congestive heart failure and is on water pills . She states these were initially adjusted a few weeks ago. She was on torsemide but this got discontinued and started on Bumex. She later had Chlorthalidone added. She feels like her right lower leg is swollen (states this does that from time to time ) as well as her abdomen. She does have an extensive surgical history to the right lower extremity regarding her sarcoma. She follows up with Tato Dewitt as well as Dr. Maria for this. She reportedly has metastasis to her lungs. Patient states with her history of COPD she does wear oxygen at night and states when she gets congested she has to wear it during the day. She states over the past few days she has had worn her oxygen continuously throughout the day. Last echo from what I can see in previous documentation was charted by cardiology and results below: Echocardiogram in November 2022: LVEF 50 to 55%, grade 1 diastolic dysfunction, dilated left atrium, mild tricuspid regurgitation, mild pulmonary hypertension (RVSP 35 to 40 mmHg). MD elicited complaint: shortness of breath Pertinent past history: congestive heart failure Related Data Home Medications Medication Instructions Recorded Confirmed nitroglycerin 0.4 mg sublingual 0.4 mg sublingual Q5M PRN Chest 04/30/22 02/14/24 tablet (Nitrostat) Pain aspirin 81 mg chewable tablet 81 mg PO QAM 07/10/22 02/14/24 cyanocobalamin (vitamin B-12) 500 500 mcg PO DAILY 07/10/22 02/14/24 mcg tablet (Vitamin B-12) acetaminophen 325 mg capsule 1,300 mg PO BID PRN Pain 01/20/23 02/14/24 metoprolol tartrate 25 mg tablet 12.5 mg PO BID 09/21/23 02/14/24 lidocaine 5 % topical ointment 1 applic topical DAILY PRN Pain 11/03/23 02/14/24 gabapentin 600 mg tablet 600 mg PO BID 02/14/24 02/14/24 ivosidenib 250 mg tablet (Tibsovo) 500 mg PO DAILY 02/14/24 02/14/24 methocarbamol 500 mg tablet 1,000 mg PO Q8H PRN Spasms 02/14/24 02/14/24 omeprazole 40 mg capsule,delayed 40 mg PO DAILY 02/14/24 02/14/24 release Previous Rx's Medication Instructions Recorded Compression Supporting Hose #1 ea 05/30/23 escitalopram oxalate 20 mg tablet 20 mg PO DAILY #90 tabs 08/09/23 meloxicam 15 mg tablet 15 mg PO DAILY #90 tabs 08/20/23 ondansetron 4 mg disintegrating 4 mg PO Q6H PRN nausea and 09/21/23 tablet vomiting #14 tabs tamsulosin 0.4 mg capsule 0.4 mg PO BID #60 caps 11/08/23 minocycline 100 mg tablet 100 mg PO DAILY 10 days #10 tabs 01/19/24 lubiprostone 24 mcg capsule 24 mcg PO BID #60 caps 01/23/24 albuterol sulfate 2.5 mg/3 mL 2.5 mg (3 mL) inhalation QID PRN 01/30/24 (0.083 %) solution for nebulization shortness of breath or wheezing #90 mL albuterol sulfate 90 mcg/actuation 1 inh inhalation QID PRN shortness 01/30/24 aerosol inhaler of breath or wheezing #8.5 grams duloxetine 30 mg capsule,delayed 30 mg PO DAILY #90 caps 01/30/24 release morphine 100 mg tablet,extended 100 mg PO BID pain 30 days #60 tabs 02/08/24 release oxycodone 20 mg tablet 20 mg PO Q6H PRN pain 30 days #120 02/08/24 tabs chlorthalidone 50 mg tablet 50 mg PO DAILY #20 tabs 02/13/24 ciprofloxacin HCl 500 mg tablet 500 mg PO Q12H #14 tabs 02/14/24 (Cipro) dexamethasone 6 mg tablet 6 mg PO DAILY #6 tabs 02/14/24 nirmatrelvir 150 mg-ritonavir 100 See Rx Instructions PO .COMPLEX 02/14/24 mg tablets in a dose pack #20 ea (Paxlovid) Allergies Allergy/AdvReac Type Severity Reaction Status Date / Time phenytoin [From Dilantin] Allergy Mild Rash Verified 02/13/24 14:19 PFSH ED PFSH: Medical History CAD (coronary artery disease) Complete rotator cuff tear of left shoulder Primary osteoarthritis, left shoulder Chronic wound infection of abdomen Weakness of left shoulder Cancer related pain Nausea and vomiting REINA (acute kidney injury) Pneumonia Oxygen dependent Essential hypertension Degenerative arthritis Chronic pain of right knee Chronic narcotic use COPD (chronic obstructive pulmonary disease) History of nonmelanoma skin cancer Heart failure with preserved ejection fraction 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 Bean Family History Mother Family history of premature coronary artery disease Hypertension Brother Cancer Hypertension Sister Cancer Father Family history of premature coronary artery disease Hypertension Denies family history of Diabetes CAD (coronary artery disease) Clotting disorder Dementia Hyperlipidemia Psychiatric illness Chronic kidney disease (CKD) Suicide Anesthesia complication Bleeding disorder Lung disease Stroke Social History Smoking and tobacco/nicotine status: former use of tobacco/nicotine Quit status (tobacco/nicotine): has quit using Year quit tobacco: 2016 Former quit date comment: 2ppd x 36 years Second hand smoke exposure: No Alcohol intake: never Substance/Drug Use: never Adopted: No Caregiver/support person: Yes Lives independently: Yes Marital status: Single Current occupational status: employed 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 Her CXR showing no acute findings. Her BNP is 551. No crackles to her lung bases. Her right lower extremity is swollen however questionable whether this is a new finding. Her ultrasound of the extremity was negative. Her blood work overall is nonactionable. Baseline troponin is 42 and essentially unchanged at 2 hours. Her EKGs are nonischemic and show no change when compared to previous. She did test positive for COVID. Questionable UTI with positive nitrates, 1+ leukocyte esterase, and bacteria. She does have an indwelling catheter. Will place patient on Paxlovid/doxycycline for the COVID. She normally uses home oxygen and has satted well here on her 2-3L that she uses nightly and occasionally during the day. Placed on antibiotics for the UTI. Will culture her urine. I would like her to follow-up with primary care later this week for reevaluation. Return to ED precautions given. Lab Data 02/14/24 11:28 02/14/24 11:28 Labs/Radiology: Radiology Impressions Chest X-Ray 02/14/24 10:50 IMPRESSION: 1. No acute cardiopulmonary finding. Laboratory Results WBC 5.44 10^3/uL (3.29-11.43) 02/14/24 11:28 RBC 3.34 10^6/uL (3.85-5.65) L 02/14/24 11:28 Hgb 9.90 g/dL (11.27-16.99) L 02/14/24 11:28 Hct 33.2 % (36-47) L 02/14/24 11:28 MCV 99.4 fl (85-98) H 02/14/24 11:28 MCH 29.6 pg (27-33) 02/14/24 11: MCHC 29.8 g/dL (30-55) L 02/14/24 11:28 RDW 16.4 % (12.1-15.1) H 02/14/24 11:28 Plt Count 188 10^3/cmm (157-399) 02/14/24 11:28 MPV 9.5 fL (7.4-10.4) 02/14/24 11:28 Neut % (Auto) 70.6 % 02/14/24 11:28 Lymph % (Auto) 16.7 % 02/14/24 11:28 [place] % (Auto) 10.3 % 02/14/24 11:28 Eos % (Auto) 1.3 % 02/14/24 11:28 Baso % (Auto) 0.4 % 02/14/24 11:28 Neut # (Auto) 3.84 10^3/uL (1.8-7.7) 02/14/24 11:28 Lymph # (Auto) 0.9 10^3/uL (0.8-4.8) 02/14/24 11:28 [place] # (Auto) 0.6 10^3/uL (0.2-0.9) 02/14/24 11:28 Eos # (Auto) 0.1 10^3/uL (0.0-0.8) 02/14/24 11:28 Baso # (Auto) 0.0 10^3/uL (0.0-0.1) 02/14/24 11:28 Nucleated RBC % (auto) 0 % 02/14/24 11: Nucleated RBCs # 0.0 /100WBC 02/14/24 11:28 Sodium 144 mmol/L (136-145) 02/14/24 11:28 Potassium 4.7 mmol/L (3.5-5.1) 02/14/24 11:28 Chloride 102 mmol/L (98-107) 02/14/24 11:28 Carbon Dioxide 33 mmol/L (22-29) H 02/14/24 11:28 Anion Gap 13.7 (5-19) 02/14/24 11:28 BUN 17 mg/dL (8-23) 02/14/24 11:28 Creatinine 1.0 mg/dL (0.5-0.9) H 02/14/24 11:28 GFR Calculation 55.3 mL/min (90-130) L 02/14/24 11:28 Glucose 155 mg/dL (65-115) H 02/14/24 11:28 Calculated Osmolality 303 mOsm/kg (285-295) H 02/14/24 11:28 Lactic Acid 1.4 mmol/L (0.5-2.2) 02/14/24 11:28 Calcium 8.1 mg/dL (8.5-10.5) L 02/14/24 11:28 Total Bilirubin 0.2 mg/dL (0.15-1.2) 02/14/24 11:28 AST 18 U/L (0-32) 02/14/24 11:28 ALT 15 U/L (0-33) 02/14/24 11:28 Alkaline Phosphatase 153 U/L (35-105) H 02/14/24 11:28 Troponin T Baseline 42 ng/L (0-10) H 02/14/24 11:28 Troponin T 120 Minute 42.61 ng/L (0-10) H 02/14/24 13:10 Delta Troponin T 0.61 ABS# (0-10) 02/14/24 13:10 NT-Pro-B Natriuret Pep 551 pg/mL (0-125) H 02/14/24 11:28 Total Protein 5.8 g/dL (6.6-8.7) L 02/14/24 11:28 Albumin 3.7 g/dL (3.5-5.2) 02/14/24 11:28 Globulin 2.1 g/dL (1.3-4.6) 02/14/24 11:28 Procalcitonin 0.06 ng/mL (0-0.5) 02/14/24 11:28 Urine Color Yellow (Yellow) 02/14/24 11:10 Urine Appearance Clear (CLEAR) 02/14/24 11:10 Urine pH 8.5 (5-7) A 02/14/24 11:10 Ur Specific [place] 1.014 (1.005-1.030) 02/14/24 11:10 Urine Protein Negative (Negative) 02/14/24 11:10 Urine Glucose (UA) Negative (Normal) 02/14/24 11:10 Urine Ketones Negative (Negative) 02/14/24 11:10 Urine Blood Non-haemolysed trace (Negative) 02/14/24 11:10 Urine Nitrate Positive (Negative) A 02/14/24 11:10 Urine Bilirubin Negative (Negative) 02/14/24 11:10 Urine Urobilinogen 1.0 mg/dL (Negative) 02/14/24 11:10 Ur Leukocyte Esterase 1+ (Negative) A 02/14/24 11:10 Urine RBC 0-4 /hpf (0-2) H 02/14/24 11:10 Urine WBC 0-4 /hpf (0-5) H 02/14/24 11:10 Ur Squamous Epith Cells None /hpf (0-5) 02/14/24 11:10 Amorphous Sediment Trace /hpf 02/14/24 11:10 Urine Bacteria 2+ /hpf (NONE) H 02/14/24 11:10 Urine Mucus 1+ /hpf 02/14/24 11:10 Urine Yeast 1+ /hpf H 02/14/24 11:10 Coronavirus (PCR) Positive (Negative) A 02/14/24 11:07 Influenza A (PCR) Negative (Negative) 02/14/24 11:07 Influenza Type B (PCR) Negative (Negative) 02/14/24 11:07 RSV (PCR) Negative (Negative) 02/14/24 11:07 All radiology interpretation(s) finalized by discharge Discharge Plan Discharge Patient Disposition: Home Clinical Impression: COVID Catheter-associated urinary tract infection Qualifiers: Indwelling urinary catheter type: indwelling urethral catheter Encounter type: initial encounter Qualified Code(s): T83.511A - Infection and inflammatory reaction due to indwelling urethral catheter, initial encounter Condition: Stable Prescriptions: New Paxlovid 150-100 mg tablets,dose pack See Rx Instructions .ROUTE .COMPLEX Qty: 20 0RF Rx Instructions: take ONE 150 mg tablet of nirmatrelvir with ONE 100 mg tablet of ritonavir twice daily for 5 days dexamethasone 6 mg tablet 6 mg PO DAILY Qty: 6 0RF ciprofloxacin HCl [Cipro] 500 mg tablet 500 mg PO Q12H Qty: 14 0RF No Action tamsulosin 0.4 mg capsule 0.4 mg PO BID Qty: 60 3RF minocycline 100 mg tablet 100 mg PO DAILY 10 Days Qty: 10 0RF acetaminophen 325 mg capsule 1,300 mg PO BID PRN (Reason: Pain) escitalopram oxalate 20 mg tablet 20 mg PO DAILY Qty: 90 1RF albuterol sulfate 2.5 mg /3 mL (0.083 %) solution for nebulization 2.5 mg inhalation QID PRN (Reason: shortness of breath or wheezing) Qty: 90 2RF albuterol sulfate 90 mcg/actuation HFA aerosol inhaler 1 inh inhalation QID PRN (Reason: shortness of breath or wheezing) Qty: 8.5 1RF chlorthalidone 50 mg tablet 50 mg PO DAILY Qty: 20 0RF (DME) Compression Supporting Hose See Rx Instructions .Route .MEDSUPPLY Qty: 1 0RF Rx Instructions: As directed meloxicam 15 mg tablet 15 mg PO DAILY Qty: 90 1RF lubiprostone 24 mcg capsule 24 mcg PO BID Qty: 60 0RF duloxetine 30 mg capsule,delayed release(DR/EC) 30 mg PO DAILY Qty: 90 1RF morphine 100 mg tablet extended release 100 mg PO BID 30 Days Qty: 60 0RF oxycodone 20 mg tablet 20 mg PO Q6H PRN (Reason: pain) 30 Days Qty: 120 0RF nitroglycerin [Nitrostat] 0.4 mg Tablet, Sublingual 0.4 mg SUBLINGUAL Q5M PRN (Reason: Chest Pain) Rx Instructions: do not exceed 3 doses per episode cyanocobalamin (vitamin B-12) [Vitamin B-12] 500 mcg Tablet 500 mcg PO DAILY aspirin 81 mg Tablet,Chewable 81 mg PO QAM lidocaine 5 % ointment 1 applic topical DAILY PRN (Reason: Pain) metoprolol tartrate 25 mg tablet 12.5 mg PO BID ondansetron 4 mg tablet,disintegrating 4 mg PO Q6H PRN (Reason: nausea and vomiting) Qty: 14 0RF methocarbamol 500 mg tablet 1,000 mg PO Q8H PRN (Reason: Spasms) gabapentin 600 mg tablet 600 mg PO BID omeprazole 40 mg capsule,delayed release(DR/EC) 40 mg PO DAILY Tibsovo 250 mg tablet 500 mg PO DAILY Discharge Orders: Discharge ED (Routine); Ordered 02/14/24 Ordered By: Pamella Pineda Referrals: Cyril Ramsey MD [Primary Care Provider] - Patient Instructions: COVID-19 (Coronavirus Disease 2019) (ED) Activity Restrictions/Additional Instructions: As we discussed, you tested positive for COVID. I am placing you on steroids and Paxlovid/antiviral medication for treatment. Your urine was also suspicious for urinary tract infection. You will be covered with antibiotics for this. You may continue your home oxygen as needed. You need to return to the emergency department for worsening shortness of breath or difficulty breathing, severe chest pain, generally feeling worse or unwell, fevers, or any other concerns you may have. You may follow-up with your primary care provider later this week for reevaluation. Coding Level of Care Code ED [facility] Facilities Operator for Prachi Aguila
--- NOTE | 2024-02-14 11:04 | PC.NURSE ---
pt has chest port not accessed, this nurse BEHAVIORAL TECHNICIAN can not access ports, was told by eula gilbert that house sup would access port.
[2024-02-14 11:27] LABS: Bilirubin Urine Negative (Negative); Blood Urine Non-haemolysed trace (Negative); Glucose Urine UA Negative (Normal); Ketones Urine Negative (Negative); Leukocyte Esterase Urine 1+ (Negative); Nitrate Urine Positive (Negative); Protein Urine Negative (Negative); Specific Gravity, Urine 1.014 (1.005-1.030); Urine Appearance Clear (CLEAR); Urine Color Yellow (Yellow); pH Urine 8.5 (5-7)
[2024-02-14 11:40] LABS: Basophils % 0.4 %; Eosinophils # 0.1 10^3/uL (0.0-0.8); Eosinophils % 1.3 %; Hematocrit 33.2 % (36-47); Lymphocytes # 0.9 10^3/uL (0.8-4.8); Lymphocytes % 16.7 %; Mean Corpuscular HGB Conc 29.8 g/dL (30-55); Mean Corpuscular Hemoglobin 29.6 pg (27-33); Mean Corpuscular Volume 99.4 fl (85-98); Mean Platelet Volume 9.5 fL (7.4-10.4); Monocytes # 0.6 10^3/uL (0.2-0.9); Monocytes % 10.3 %; Neutrophils # 3.84 10^3/uL (1.8-7.7); Neutrophils % 70.6 %; Nucleated Red Blood Cells % 0 %; Platelet Count 188 10^3/cmm (157-399); Red Blood Count 3.34 10^6/uL (3.85-5.65); Red Cell Distribution Width 16.4 % (12.1-15.1); White Blood Count 5.44 10^3/uL (3.29-11.43)
[2024-02-14 11:44] LABS: UA Manual Slide Review YES; UA Slide Review UA Slide Review Perf
[2024-02-14 11:48] LABS: Add Urine Culture? Yes; Add Urine Microscopic? YES; Amorphous Sediment Urine TRACE /hpf; Bacteria Urine 2+ /hpf; Mucus Urine 1+ /hpf; RBC Urine 0-4 /hpf (0-2); WBC Urine 0-4 /hpf (0-5)
[2024-02-14 11:53] LABS: Lactic Sepsis W/Reflex 1.4 mmol/L (0.5-2.2)
[2024-02-14 11:53] LABS: Influenza A NEGATIVE (Negative); Influenza B NEGATIVE (Negative); Respiratory Syncytial Virus Ce NEGATIVE (Negative)
[2024-02-14 11:55] LABS: Troponin(5th) Baseline 42 ng/L (0-10)
[2024-02-14 11:59] LABS: Covid PCR Positive (Negative)
[2024-02-14 12:10] LABS: NT Pro B Type Natriuretic Pept 551 pg/mL (0-125); Procalcitonin 0.06 ng/mL (0-0.5)
[2024-02-14 12:21] LABS: Alanine Aminotransferase 15 U/L (0-33); Albumin Level 3.7 g/dL (3.5-5.2); Alkaline Phosphatase 153 U/L (35-105); Anion Gap 13.7 (5-19); Aspartate Amino Transferase 18 U/L (0-32); Blood Urea Nitrogen 17 mg/dL (8-23); Calcium 8.1 mg/dL (8.5-10.5); Carbon Dioxide 33 mmol/L (22-29); Chloride 102 mmol/L (98-107); Globulin 2.1 g/dL (1.3-4.6); Glomerular Filtration Rate 55.3 mL/min (90-130); Glucose 155 mg/dL (65-115); Osmolality Calculated 303 mOsm/kg (285-295); Potassium 4.7 mmol/L (3.5-5.1); Sodium 144 mmol/L (136-145); Total Bilirubin 0.2 mg/dL (0.15-1.2); Total Protein 5.8 g/dL (6.6-8.7)
[2024-02-14 12:28] LABS: Creatinine Clr Calc Pharmacy 60.7132
--- NOTE | 2024-02-14 12:50 | ECG_ITS ---
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 Measurements Intervals [place] Rate: 97 P: 63 MS: 179 QRS: 39 QRSD: 146 T: 65 QT: 386 QTc: 491 Interpretive Statements SINUS RHYTHM LEFT BUNDLE BRANCH BLOCK [120+ ms QRS DURATION, 80+ ms Q/S IN V1/V2, 85+ ms R IN I/aVL/V5/V6] Compared to ECG 02/14/2024 10:25:04 Sinus tachycardia no longer present Electronically Signed On 02-14-2024 16:26:53 CDT by Pawan Staton M.D. [id number]
[2024-02-14] MEDS: FUROsemide 10 mg/mL SDV 10mL 60 MG IVP (13:01)
[2024-02-14 13:38] LABS: Troponin 5 2HR 42.61 ng/L (0-10); Troponin 5 2HR Delta 0.61 ABS# (0-10)
--- NOTE | 2024-02-14 14:45 | PC.NURSE ---
port was accessed by ANA PAULA Tim. Pt up for BRYON, stitcher set up operator automaticLashell Garcia notified that port needs de-accessed.
== END 2024-02-14 15:37 | disposition home or self-care (01) ==
PROVIDERS: Emergency Provider Physician Assistant; PCP Family Medicine
DX: U07.1 COVID-19 (principal); T83.511A Infection and inflammatory reaction due to indwelling urethral catheter, initial encounter; J44.9 Chronic obstructive pulmonary disease, unspecified; I11.0 Hypertensive heart disease with heart failure; I50.32 Chronic diastolic (congestive) heart failure; Z79.899 Other long term (current) drug therapy; Z99.81 Dependence on supplemental oxygen
CPT/HCPCS: 0241U; 71045; 80053; 81001; 83605; 83880; 84145; 84484; 85025; 87077; 87086; 87186; 93005; 93971; 96374; 99285; J1940

== ENCOUNTER 2024-02-17 14:00 | Inpatient (IN) | payer MEDICARE, MEDICAID, SELFPAY ==
[2024-02-17] VITALS (15 sets, daily range): BP systolic 102–121; BP diastolic 43–70; PULSE 82–102; RESP 18–26; TEMP 36.8–37.1; O2SAT 87–98; BMI 40.6
--- NOTE | 2024-02-17 14:11 | XR_ITS ---
WS: [email or web address] Exam: XR hip RT 2-3V wo/w pel* [id number] Date/Time of Exam: 02/17/2024 2:28 PM Reason For Exam: fall, right hip pain No fracture or dislocation. RIGHT total hip arthroplasty remains in good alignment. Numerous surgical clips in the medial soft tissues. No change since 08/05/2020. XR/XR hip RT 2-3V wo/w pel* [id number] IMPRESSION: 1. Intact RIGHT total hip arthroplasty.
--- NOTE | 2024-02-17 14:11 | CTR_ITS ---
PROCEDURE INFORMATION: Exam: CT Head Without Contrast Exam date and time: 02/17/2024 3:31 PM Age: 68 years old Clinical indication: Injury or trauma; Fall; Blunt trauma (contusions or hematomas); Additional info: Fall, AMS, TECHNIQUE: Imaging protocol: Computed tomography of the head without contrast. Radiation optimization: All CT scans at this facility use at least one of these dose optimization techniques: automated exposure control; mA and/or kV adjustment per patient size (includes targeted exams where dose is matched to clinical indication); or iterative reconstruction. COMPARISON: CT head wo con* [id number] 07/10/2022 11:38 AM RADIATION DOSE METRICS: Total DLP (mGy-cm): 1120.68 FINDINGS: Brain: No hemorrhage. Diffuse periventricular white matter disease. No mass effect. No collections. Age related volume loss. Cerebral ventricles: No ventriculomegaly. Paranasal sinuses: Mucosal thickening in the maxillary sinuses and ethmoid sinuses. Mastoid air cells: Mastoid air cells are aerated with no effusions. Bones: No acute osseous abnormality. Soft tissues: Unremarkable. CT/CT head wo con* [id number] IMPRESSION: No acute intracranial abnormality.
--- NOTE | 2024-02-17 14:11 | XR_ITS ---
WS: [email or web address] Exam: XR chest 1V portable [id number] Date/Time of Exam: 02/17/2024 2:28 PM Reason For Exam: falls, weakness Comparison 02/14/2024. Lungs are fully expanded and clear. Normal cardiomediastinal silhouette. No pleural effusions. Bony s tructures are intact. Right-sided central line extends into the RIGHT atrium. XR/XR chest 1V portable [id number] IMPRESSION: 1. No acute finding. 2. Right-sided central line appears to end in the RIGHT atrium.
--- NOTE | 2024-02-17 14:19 | ED_ITS ---
HPI - Altered Mental Status 2 General: Chief Complaint: Altered Mental Status Stated Complaint: fall, ams Time Seen by Provider: 02/17/24 14:02 Source: patient and EMS History of Present Illness: Patient is a 68-year-old with a history of of metastatic pleomorphic sarcoma, HTN, YOLY, HFpEF, tobacco use disorder, COPD, and GERD here for complaints of increasing weakness and some confusion. The home health aide went to check on the patient this morning and found her laying on the floor, without her supplemental oxygen, and too weak to even stand. Patient was seen in the ER just a few days ago and diagnosed with COVID-19 and a urinary tract infection. She does wear 2 L of oxygen at baseline. She was started on Paxlovid as well as doxycycline at her recent ER visit. She does have a chronic indwelling Stewart catheter. Primary concern is generalized weakness and inability to care for herself at home. She does currently live at home alone. MD complaint: altered mental status, confusion and weakness Related Data Home Medications Medication Instructions Recorded Confirmed nitroglycerin 0.4 mg sublingual 0.4 mg sublingual Q5M PRN Chest 04/30/22 02/17/24 tablet (Nitrostat) Pain aspirin 81 mg chewable tablet 81 mg PO QAM 07/10/22 02/17/24 cyanocobalamin (vitamin B-12) 500 500 mcg PO DAILY 07/10/22 02/17/24 mcg tablet (Vitamin B-12) acetaminophen 325 mg capsule 1,300 mg PO BID PRN Pain 01/20/23 02/17/24 metoprolol tartrate 25 mg tablet 12.5 mg PO BID 09/21/23 02/17/24 lidocaine 5 % topical ointment 1 applic topical DAILY PRN Pain 11/03/23 02/17/24 gabapentin 600 mg tablet 600 mg PO BID 02/14/24 02/17/24 ivosidenib 250 mg tablet (Tibsovo) 500 mg PO DAILY 02/14/24 02/17/24 methocarbamol 500 mg tablet 1,000 mg PO Q8H PRN Spasms 02/14/24 02/17/24 omeprazole 40 mg capsule,delayed 40 mg PO DAILY 02/14/24 02/17/24 release Previous Rx's Medication Instructions Recorded Compression Supporting Hose #1 ea 05/30/23 escitalopram oxalate 20 mg tablet 20 mg PO DAILY #90 tabs 08/09/23 meloxicam 15 mg tablet 15 mg PO DAILY #90 tabs 08/20/23 ondansetron 4 mg disintegrating 4 mg PO Q6H PRN nausea and 09/21/23 tablet vomiting #14 tabs tamsulosin 0.4 mg capsule 0.4 mg PO BID #60 caps 11/08/23 minocycline 100 mg tablet 100 mg PO DAILY 10 days #10 tabs 01/19/24 lubiprostone 24 mcg capsule 24 mcg PO BID #60 caps 01/23/24 albuterol sulfate 2.5 mg/3 mL 2.5 mg (3 mL) inhalation QID PRN 01/30/24 (0.083 %) solution for nebulization shortness of breath or wheezing #90 mL albuterol sulfate 90 mcg/actuation 1 inh inhalation QID PRN shortness 01/30/24 aerosol inhaler of breath or wheezing #8.5 grams duloxetine 30 mg capsule,delayed 30 mg PO DAILY #90 caps 01/30/24 release morphine 100 mg tablet,extended 100 mg PO BID pain 30 days #60 tabs 02/08/24 release oxycodone 20 mg tablet 20 mg PO Q6H PRN pain 30 days #120 02/08/24 tabs chlorthalidone 50 mg tablet 50 mg PO DAILY #20 tabs 02/13/24 ciprofloxacin HCl 500 mg tablet 500 mg PO Q12H #14 tabs 02/14/24 (Cipro) dexamethasone 6 mg tablet 6 mg PO DAILY #6 tabs 02/14/24 nirmatrelvir 150 mg-ritonavir 100 See Rx Instructions PO .COMPLEX 02/14/24 mg tablets in a dose pack #20 ea (Paxlovid) Allergies Allergy/AdvReac Type Severity Reaction Status Date / Time phenytoin [From Dilantin] Allergy Mild Rash Verified 02/13/24 14:19 Review of Systems 2 Const: Denies: fever(s), chills or diaphoresis Card: Denies: chest pain Resp: Reports: dyspnea GI: Denies: abdominal pain, nausea or vomiting Skin/Breast: Denies: rash Neuro: Denies: headache(s) PFSH ED 2 PFSH: Medical History CAD (coronary artery disease) Complete rotator cuff tear of left shoulder Primary osteoarthritis, left shoulder Chronic wound infection of abdomen Weakness of left shoulder Cancer related pain Nausea and vomiting REINA (acute kidney injury) Pneumonia Oxygen dependent Essential hypertension Degenerative arthritis Chronic pain of right knee Chronic narcotic use COPD (chronic obstructive pulmonary disease) History of nonmelanoma skin cancer Heart failure with preserved ejection fraction 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 Bean Family History Mother Family history of premature coronary artery disease Hypertension Brother Cancer Hypertension Sister Cancer Father Family history of premature coronary artery disease Hypertension Denies family history of Diabetes CAD (coronary artery disease) Clotting disorder Dementia Hyperlipidemia Psychiatric illness Chronic kidney disease (CKD) Suicide Anesthesia complication Bleeding disorder Lung disease Stroke Social History Smoking and tobacco/nicotine status: former use of tobacco/nicotine Quit status (tobacco/nicotine): has quit using Year quit tobacco: 2016 Former quit date comment: 2ppd x 36 years Second hand smoke exposure: No Alcohol intake: never Substance/Drug Use: never Adopted: No Caregiver/support person: Yes Lives independently: Yes Marital status: Single Current occupational status: employed 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 [employer] Physical Exam 2 Const: COMMON NORMALS: no acute distress, alert and well nourished O RIENTATION/CONSCIOUSNESS: Yes awake OTHER: Chronically ill morbidly obese 68-year-old female who appears older than stated age HENMT: COMMON NORMALS: normocephalic and atraumatic HEAD & SCALP: n ormocephalic and atraumatic Eye: COMMON NORMALS: conjunctivae normal CONJUNCTIVA: Yes conjunctivae normal Neck/C-Spine: GENERAL: Yes normal visual inspection Resp: COMMON NORMALS: normal respiratory effort, No retractions and No use of accessory muscles Cardio: COMMON NORMALS: regular rhythm and Peripheral pulses 2+ throughout RHYTHM: regular rhythm PERIPHERAL PULSES: Peripheral pulses 2+ throughout GI: COMMON NORMALS: Soft to palpation and non-tender PALPATION: Yes Soft to palpation Extremity: NARRATIVE EXTREMITY EXAM: Multiple large scars to the right lower quadrant right lower extremity from previous osteosarcoma surgeries. Neuro: COMMON NORMALS: no focal motor deficits SENSORIUM/ORIENTATION: Yes alert Skin: COMMON NORMALS: no rashes or lesions noted GENERAL SKIN EXAM: no rashes or lesions noted Course 2 Vital Signs: Vital signs: Vital Signs Temperature 98.8 F 02/17/24 14:06 Pulse Rate 100 02/17/24 14:06 Respiratory Rate 18 02/17/24 14:06 Blood Pressure 121/58 02/17/24 14:06 Pulse Oximetry 98 02/17/24 14:06 Oxygen Delivery Me thod Room Air 02/17/24 14:06 MDM - Altered Mental Status Medical Decision Making Patient is a chronically ill-appearing 68-year-old female who was diagnosed with COVID-19 and urinary tract infection just a couple of days ago from the emergency department. She has advanced sarcoma and lives at home alone. She had a certified physician's assistant come and check on her today who found her facedown on the floor and she was too weak to even get up off the floor. She was confused and hypoxemic upon EMS arrival. She is awake and alert to person and place to me. She complained of some right hip pain. X-ray of the right hip shows intact right total hip arthroplasty. Head CT is negative for acute findings. Chest x- ray does not show any acute cardiothoracic findings. Basic labs show some renal insufficiency with a creatinine of 2.4. Labs otherwise stable. Urinalysis does have positive nitrite, with 2+ leukocyte esterase, and pyuria. She was started on Rocephin IV antibiotics for this. I suspect this is a combination of metabolic encephalopathy due to her COVID-19 illness, hypoxemia, as well as a concomitant UTI. I spoke with the hospitalist who has accepted for admission. Lab Data 02/17/24 14:30 02/17/24 14:30 Radiology Impressions Chest X-Ray 02/17/24 14:11 IMPRESSION: 1. No acute finding. 2. Right-sided central line appears to end in the RIGHT atrium. Head CT 02/17/24 14:11 IMPRESSION: No acute intracranial abnormality. Hip/Pelvis X-Ray 02/17/24 14:11 IMPRESSION: 1. Intact RIGHT total hip arthroplasty. Laboratory Results WBC 5.59 10^3/uL (3.29-11.43) 02/17/24 14:30 RBC 3.13 10^6/uL (3.85-5.65) L 02/17/24 14:30 Hgb 9.40 g/dL (11.27-16.99) L 02/17/24 14:30 Hct 30.9 % (36-47) L 02/17/24 14:30 MCV 98.7 fl (85-98) H 02/17/24 14:30 MCH 30.0 pg (27-33) 02/17/24 14:30 MCHC 30.4 g/dL (30-55) 02/17/24 14:30 RDW 16.8 % (12.1-15.1) H 02/17/24 14:30 Plt Count 147 10^3/cmm (157-399) L 02/17/24 14:30 MPV 10.2 fL (7.4-10.4) 02/17/24 14:30 Neut % (Auto) 78.6 % 02/17/24 14:30 Lymph % (Auto) 12.9 % 02/17/24 14:30 [place] % (Auto) 7.0 % 02/17/24 14: Eos % (Auto) 0.4 % 02/17/24 14: Baso % (Auto) 0.2 % 02/17/24 14:30 Neut # (Auto) 4.40 10^3/uL (1.8-7.7) 02/17/24 14:30 Lymph # (Auto) 0.7 10^3/uL (0.8-4.8) L 02/17/24 14:30 [place] # (Auto) 0.4 10^3/uL (0.2-0.9) 02/17/24 14:30 Eos # (Auto) 0.0 10^3/uL (0.0-0.8) 02/17/24 14:30 Baso # (Auto) 0.0 10^3/uL (0.0-0.1) 02/17/24 14:30 Nucleated RBC % (auto) 0.4 % 02/17/24 14:30 Nucleated RBCs # 0.0 /100WBC 02/17/24 14:30 Sodium 137 mmol/L (136-145) 02/17/24 14:30 Potassium 4.5 mmol/L (3.5-5.1) 02/17/24 14:30 Chloride 97 mmol/L (98-107) L 02/17/24 14:30 Carbon Dioxide 29 mmol/L (22-29) 02/17/24 14:30 Anion Gap 15.5 (5-19) 02/17/24 14:30 BUN 42 mg/dL (8-23) H 02/17/24 14:30 Creatinine 2.4 mg/dL (0.5-0.9) H 02/17/24 14:30 GFR Calculation 20.1 mL/min (90-130) L 02/17/24 14:30 Glucose 107 mg/dL (65-115) 02/17/24 14:30 Calculated Osmolality 295 mOsm/kg (285-295) 02/17/24 14:30 Lactic Acid 1.4 mmol/L (0.5-2.2) 02/17/24 14:30 Calcium 7.1 mg/dL (8.5-10.5) L 02/17/24 14:30 Magnesium 2.3 mg/dL (1.7-2.3) 02/17/24 14:30 Total Bilirubin 0.7 mg/dL (0.15-1.2) 02/17/24 14:30 AST 478 U/L (0-32) H 02/17/24 14:30 ALT 678 U/L (0-33) H 02/17/24 14:30 Alkaline Phosphatase 171 U/L (35-105) H 02/17/24 14:30 Creatine Kinase 480 U/L (26-192) H* 02/17/24 14:30 Troponin T Baseline 113 ng/L (0-10) H* 02/17/24 14:30 Troponin T 120 Minute 105.9 ng/L (0-10) H 02/17/24 16:29 Delta Troponin T -7.1 ABS# (0-10) L 02/17/24 16:29 Total Protein 6.5 g/dL (6.6-8.7) L 02/17/24 14:30 Albumin 3.5 g/dL (3.5-5.2) 02/17/24 14:30 Globulin 3.0 g/dL (1.3-4.6) 02/17/24 14:30 Urine Color Yellow (Yellow) 02/17/24 15:23 Urine Appearance Cloudy (CLEAR) A 02/17/24 15:23 Urine pH 7.5 (5-7) 02/17/24 15:23 Ur Specific [place] 1.015 (1.005-1.030) 02/17/24 15:23 Urine Protein 1+ (Negative) A 02/17/24 15:23 Urine Glucose (UA) Negative (Normal) 02/17/24 15: Urine Ketones Negative (Negative) 02/17/24 15:23 Urine Blood 2+ (Negative) A 02/17/24 15:23 Urine Nitrate Positive (Negative) A 02/17/24 15: Urine Bilirubin Negative (Negative) 02/17/24 15:23 Urine Urobilinogen 1.0 mg/dL (Negative) 02/17/24 15:23 Ur Leukocyte Esterase 2+ (Negative) A 02/17/24 15:23 Urine RBC 6-10 /hpf (0-2) 02/17/24 15:23 Urine WBC 21-50 /hpf (0-5) H 02/17/24 15:23 Ur Squamous Epith Cells 6-10 /hpf (0-5) 02/17/24 15:23 Calcium Oxalate Crystal 1 /hpf 02/17/24 15:23 Amorphous Sediment Trace /hpf 02/17/24 15:23 Urine Bacteria 4+ /hpf (NONE) H 02/17/24 15:23 Hyaline Casts 93.90 /lpf 02/17/24 15:23 Fine Granular Casts 0-4 /lpf H 02/17/24 15:23 Coarse Granular Casts 5-10 /lpf H 02/17/24 15:23 Urine Yeast Trace /hpf 02/17/24 15:23 All radiology interpretation(s) finalized by discharge Discharge Plan Discharge Patient Disposition: Admitted As Inpatient Clinical Impression: COVID-19, Urinary tract infection, Encephalopathy, Weakness Condition: Fair Prescriptions: No Action tamsulosin 0.4 mg capsule 0.4 mg PO BID Qty: 60 3RF minocycline 100 mg tablet 100 mg PO DAILY 10 Days Qty: 10 0RF acetaminophen 325 mg capsule 1,300 mg PO BID PRN (Reason: Pain) escitalopram oxalate 20 mg tablet 20 mg PO DAILY Qty: 90 1RF albuterol sulfate 2.5 mg /3 mL (0.083 %) solution for nebulization 2.5 mg inhalation QID PRN (Reason: shortness of breath or wheezing) Qty: 90 2RF albuterol sulfate 90 mcg/actuation HFA aerosol inhaler 1 inh inhalation QID PRN (Reason: shortness of breath or wheezing) Qty: 8.5 1RF chlorthalidone 50 mg tablet 50 mg PO DAILY Qty: 20 0RF (DME) Compression Supporting Hose See Rx Instructions .Route .MEDSUPPLY Qty: 1 0RF Rx Instructions: As directed meloxicam 15 mg tablet 15 mg PO DAILY Qty: 90 1RF lubiprostone 24 mcg capsule 24 mcg PO BID Qty: 60 0RF duloxetine 30 mg capsule,delayed release(DR/EC) 30 mg PO DAILY Qty: 90 1RF morphine 100 mg tablet extended release 100 mg PO BID 30 Days Qty: 60 0RF oxycodone 20 mg tablet 20 mg PO Q6H PRN (Reason: pain) 30 Days Qty: 120 0RF nitroglycerin [Nitrostat] 0.4 mg Tablet, Sublingual 0.4 mg SUBLINGUAL Q5M PRN (Reason: Chest Pain) Rx Instructions: do not exceed 3 doses per episode cyanocobalamin (vitamin B-12) [Vitamin B-12] 500 mcg Tablet 500 mcg PO DAILY aspirin 81 mg Tablet,Chewable 81 mg PO QAM lidocaine 5 % ointment 1 applic topical DAILY PRN (Reason: Pain) metoprolol tartrate 25 mg tablet 12.5 mg PO BID ondansetron 4 mg tablet,disintegrating 4 mg PO Q6H PRN (Reason: nausea and vomiting) Qty: 14 0RF methocarbamol 500 mg tablet 1,000 mg PO Q8H PRN (Reason: Spasms) gabapentin 600 mg tablet 600 mg PO BID omeprazole 40 mg capsule,delayed release(DR/EC) 40 mg PO DAILY Tibsovo 250 mg tablet 500 mg PO DAILY Paxlovid 150-100 mg tablets,dose pack See Rx Instructions .ROUTE .COMPLEX Qty: 20 0RF Rx Instructions: take ONE 150 mg tablet of nirmatrelvir with ONE 100 mg tablet of ritonavir twice daily for 5 days dexamethasone 6 mg tablet 6 mg PO DAILY Qty: 6 0RF ciprofloxacin HCl [Cipro] 500 mg tablet 500 mg PO Q12H Qty: 14 0RF Referrals: Cyril Ramsey MD [Primary Care Provider] - Patient Instructions: Altered Mental Status (ED) Coding Level of Care Code ED Nurse Emergency for Prachi Aguila
--- NOTE | 2024-02-17 14:23 | ECG_ITS ---
[facility] Test Date: 2024-02-17 Pat Name: Dennise Funes Department: Room: Gender: Female Office Rn: : 1955 Requested By: Murali Arriaga Order Number: [id number] Evgeny MD: Iftikhar Bradley M.D. Measurements Intervals [place] Rate: 98 P: 44 AL: 181 QRS: 70 QRSD: 150 T: -18 QT: 397 QTc: 507 Interpretive Statements SINUS RHYTHM INTRAVENTRICULAR CONDUCTION DELAY [130+ ms QRS DURATION] Compared to ECG 02/14/2024 12:56:18 Intraventricular conduction delay now present Left bundle-branch block no longer present Electronically Signed On 02-18-2024 20:56:55 CDT by Iftikhar Bradley M.D. [id number]
[2024-02-17 14:47] LABS: Basophils % 0.2 %; Eosinophils % 0.4 %; Hematocrit 30.9 % (36-47); Lymphocytes # 0.7 10^3/uL (0.8-4.8); Lymphocytes % 12.9 %; Mean Corpuscular HGB Conc 30.4 g/dL (30-55); Mean Corpuscular Volume 98.7 fl (85-98); Mean Platelet Volume 10.2 fL (7.4-10.4); Monocytes # 0.4 10^3/uL (0.2-0.9); Neutrophils % 78.6 %; Nucleated Red Blood Cells % 0.4 %; Platelet Count 147 10^3/cmm (157-399); Red Blood Count 3.13 10^6/uL (3.85-5.65); Red Cell Distribution Width 16.8 % (12.1-15.1); White Blood Count 5.59 10^3/uL (3.29-11.43)
--- NOTE | 2024-02-17 14:55 | PC.PHAR ---
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 Patient stated she did take morning medications .
[2024-02-17 15:12] LABS: Lactic Sepsis W/Reflex 1.4 mmol/L (0.5-2.2)
[2024-02-17 15:14] LABS: Alanine Aminotransferase 678 U/L (0-33); Albumin Level 3.5 g/dL (3.5-5.2); Alkaline Phosphatase 171 U/L (35-105); Anion Gap 15.5 (5-19); Aspartate Amino Transferase 478 U/L (0-32); Blood Urea Nitrogen 42 mg/dL (8-23); Calcium 7.1 mg/dL (8.5-10.5); Carbon Dioxide 29 mmol/L (22-29); Chloride 97 mmol/L (98-107); Creatinine Clr Calc Pharmacy 23.6685; Glomerular Filtration Rate 20.1 mL/min (90-130); Glucose 107 mg/dL (65-115); Magnesium 2.3 mg/dL (1.7-2.3); Osmolality Calculated 295 mOsm/kg (285-295); Potassium 4.5 mmol/L (3.5-5.1); Sodium 137 mmol/L (136-145); Total Bilirubin 0.7 mg/dL (0.15-1.2); Total Protein 6.5 g/dL (6.6-8.7)
[2024-02-17 15:15] LABS: Creatine Phosphokinase 480 U/L (26-192)
[2024-02-17 15:16] LABS: Troponin(5th) Baseline 113 ng/L (0-10)
[2024-02-17 15:29] LABS: Bilirubin Urine Negative (Negative); Blood Urine 2+ (Negative); Glucose Urine UA Negative (Normal); Ketones Urine Negative (Negative); Leukocyte Esterase Urine 2+ (Negative); Nitrate Urine Positive (Negative); Protein Urine 1+ (Negative); Specific Gravity, Urine 1.015 (1.005-1.030); Urine Appearance Cloudy (CLEAR); Urine Color Yellow (Yellow); pH Urine 7.5 (5-7)
[2024-02-17 15:34] LABS: Add Urine Microscopic? YES; Bacteria Urine 4+ /hpf; WBC Urine 21-50 /hpf (0-5)
[2024-02-17 15:51] LABS: UA Slide Review UA Slide Review Perf
[2024-02-17] MEDS: sodium chloride 0.9% 500 ML IV (15:51)
[2024-02-17 15:52] LABS: Amorphous Sediment Urine TRACE /hpf; Calcium Oxalate Crystals Urine 1 /hpf; Fine Granular Casts Urine 0-4 /lpf
--- NOTE | 2024-02-17 16:23 | ECG_ITS ---
[facility] Test Date: 2024-02-17 Pat Name: Dennise Funes Department: Room: Gender: Female Time Study Clerk: : 1955 Requested By: Murali Arriaga Order Number: [id number] Evgeny MD: Iftikhar Bradley M.D. Measurements Intervals [place] Rate: 95 P: 55 [place]: 182 QRS: 18 QRSD: 152 T: 82 QT: 409 QTc: 516 Interpretive Statements SINUS RHYTHM LEFT BUNDLE BRANCH BLOCK [120+ ms QRS DURATION, 80+ ms Q/S IN V1/V2, 85+ ms R IN I/aVL/V5/V6] Compared to ECG 02/17/2024 14:22:24 Left bundle-branch block now present Intraventricular conduction delay no longer present Electronically Signed On 02-18-2024 21:15:24 CDT by Iftikhar Bradley M.D. [id number]
[2024-02-17 17:06] LABS: Troponin 5 2HR Delta -7.1 ABS# (0-10)
[2024-02-17 17:07] LABS: Troponin 5 2HR 105.9 ng/L (0-10)
--- NOTE | 2024-02-17 17:49 | P.HP_ITS ---
Providers/Chief Complaint 2 Primary Care Provider: Cyril Ramsey MD Chief Complaint: fall, ams History of Present Illness Dennise Funes is a 68 year old female with Hx of metastatic undifferentiated pleomorphic sarcoma, mets to lungs, s/p tumor debulking and removal occurred. 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 She was found to be hypoxic and not wearing her oxygen, was found facedown on the floor. During my assessment, she is alert, awake and oriented x 2, disoriented at times, unable to find words, had to repeatedly ask her questions, able to understand but has clouding. She denies any history of fever, cough, chest pain, palpitations, dizziness or loss of consciousness since she does not remember the episode. She reports she was fine until she went to bed last night but does not remember waking up this morning. She also reports feeling generalized weakness and recently visited ER on 02/13, was diagnosed with COVID- 19 infection and advise to take Paxlovid and doxycycline. In ER she was found to have hemoglobin of 9.4, baseline is 10.6, platelet count of 147, creatinine of 2.4, baseline is 0.8, elevated LFTs, CK4 80, 2 sets of troponins 113, 105 and UA positive Review of Systems 2 General: Reports: 10 or more systems reviewed and unremarkable except in HPI and below Medications/Allergies Home Medications Medication Instructions Recorded Confirmed Last Taken Type nitroglycerin 0.4 mg sublingual 0.4 mg sublingual Q5M PRN Chest 04/30/22 02/17/24 Unknown History tablet (Nitrostat) Pain aspirin 81 mg chewable tablet 81 mg PO QAM 07/10/22 02/17/24 02/17/24 08:00 History cyanocobalamin (vitamin B-12) 500 500 mcg PO DAILY 07/10/22 02/17/24 02/17/24 History mcg tablet (Vitamin B-12) acetaminophen 325 mg capsule 1,300 mg PO BID PRN Pain 09/07/23 10/04/24 09/30/24 History Compression Supporting Hose #1 ea 05/30/23 02/17/24 Unknown Rx escitalopram oxalate 20 mg tablet 20 mg PO DAILY #90 tabs 08/09/23 02/17/24 02/17/24 Rx meloxicam 15 mg tablet 15 mg PO DAILY #90 tabs 08/20/23 02/17/24 02/17/24 Rx metoprolol tartrate 25 mg tablet 12.5 mg PO BID 09/21/23 02/17/24 02/17/24 History ondansetron 4 mg disintegrating 4 mg PO Q6H PRN nausea and 09/21/23 02/17/24 11/02/23 Rx tablet vomiting #14 tabs lidocaine 5 % topical ointment 1 applic topical DAILY PRN Pain 11/03/23 02/17/24 Unknown History tamsulosin 0.4 mg capsule 0.4 mg PO BID #60 caps 11/08/23 02/17/24 02/17/24 Rx minocycline 100 mg tablet 100 mg PO DAILY 10 days #10 tabs 01/19/24 02/17/24 02/17/24 Rx lubiprostone 24 mcg capsule 24 mcg PO BID #60 caps 01/23/24 02/17/24 02/17/24 Rx albuterol sulfate 2.5 mg/3 mL 2.5 mg (3 mL) inhalation QID PRN 01/30/24 02/17/24 02/13/24 Rx (0.083 %) solution for nebulization shortness of breath or wheezing #90 mL albuterol sulfate 90 mcg/actuation 1 inh inhalation QID PRN shortness 01/30/24 02/17/24 02/13/24 Rx aerosol inhaler of breath or wheezing #8.5 grams duloxetine 30 mg capsule,delayed 30 mg PO DAILY #90 caps 01/30/24 02/17/24 02/17/24 Rx release morphine 100 mg tablet,extended 100 mg PO BID pain 30 days #60 tabs 02/08/24 02/17/24 02/17/24 Rx release oxycodone 20 mg tablet 20 mg PO Q6H PRN pain 30 days #120 02/08/24 02/17/24 02/17/24 08:00 Rx tabs chlorthalidone 50 mg tablet 50 mg PO DAILY #20 tabs 02/13/24 02/17/24 02/17/24 08:00 Rx ciprofloxacin HCl 500 mg tablet 500 mg PO Q12H #14 tabs 02/14/24 02/17/24 02/17/24 08:00 Rx (Cipro) dexamethasone 6 mg tablet 6 mg PO DAILY #6 tabs 02/14/24 02/17/24 02/17/24 Rx gabapentin 600 mg tablet 600 mg PO BID 02/14/24 02/17/24 02/17/24 History ivosidenib 250 mg tablet (Tibsovo) 500 mg PO DAILY 02/14/24 02/17/24 02/17/24 History methocarbamol 500 mg tablet 1,000 mg PO Q8H PRN Spasms 02/14/24 02/17/24 02/13/24 History nirmatrelvir 150 mg-ritonavir 100 See Rx Instructions PO .COMPLEX 02/14/24 02/17/24 02/17/24 08:00 Rx mg tablets in a dose pack #20 ea (Paxlovid) omeprazole 40 mg capsule,delayed 40 mg PO DAILY 02/14/24 02/17/24 02/17/24 History release Allergies Allergy/AdvReac Type Severity Reaction Status Date / Time phenytoin [From Dilantin] Allergy Mild Rash Verified 02/13/24 14:19 PFSH Acute 2 PFSH: Medical History (Updated 02/17/24 @ 18:35 by Jesenia Rider MD) REINA (acute kidney injury) Oxygen dependent COPD (chronic obstructive pulmonary disease) Depression Heart failure with preserved ejection fraction YOLY on CPAP Anxiety and depression CAD (coronary artery disease) Complete rotator cuff tear of left shoulder Primary osteoarthritis, left shoulder Chronic wound infection of abdomen Weakness of left shoulder Cancer related pain Nausea and vomiting Pneumonia Essential hypertension Degenerative arthritis Chronic pain of right knee Chronic narcotic use History of nonmelanoma skin cancer 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 Bean Family History Mother Family history of premature coronary artery disease Hypertension Brother Cancer Hypertension Sister Cancer Father Family history of premature coronary artery disease Hypertension Denies family history of Diabetes CAD (coronary artery disease) Clotting disorder Dementia Hyperlipidemia Psychiatric illness Chronic kidney disease (CKD) Suicide Anesthesia complication Bleeding disorder Lung disease Stroke Social History Smoking and tobacco/nicotine status: former use of tobacco/nicotine Quit status (tobacco/nicotine): has quit using Year quit tobacco: 2016 Former quit date comment: 2ppd x 36 years Second hand smoke exposure: No Alcohol intake: never Substance/Drug Use: never Adopted: No Caregiver/support person: Yes Lives independently: Yes Marital status: Single Current occupational status: employed 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 [employer] Vitals/I&O/Wt Last Vital Signs Temp 98.8 F 02/17/24 14:06 Pulse 100 02/17/24 14:06 Resp 18 02/17/24 14:06 BP 121/58 02/17/24 14:06 Pulse Ox 98 02/17/24 14:06 O2 Del Method Room Air 02/17/24 14:06 Weight last 48 hrs Weight 86.183 kg Physical Exam 2 Narrative: She is alert awake oriented x 2, not in acute distress, disoriented, has clouding of thoughts, able to answer questions appropriately after 2 or 3 attempts. Chest air entry equal on both sides, coarse rhonchi and wheezing present CVS normal heart sounds Abdomen soft nontender nondistended normal bowel sounds, extensive deformed surgical scar present on the right side extending from right subcostal to right groin Extremity no edema noted left lower extremity, right lower extremity 1+ pitting edema and surgical scar extending from right knee to right ankle present Data 02/17/24 14:30 02/17/24 14:30 Micro: Microbiology 02/17/24 14:40 Blood Culture - Preliminary Blood SPECIMEN COLLECTED 02/17/24 14:30 Blood Culture - Preliminary Blood SPECIMEN COLLECTED A&P Assessment and plan (1) Encephalopathy: (2) Weakness: (3) Urinary tract infection: (4) COVID-19: (5) CAD (coronary artery disease): Qualifiers: Coronary Disease-Associated Artery/Lesion type: [place] artery [place] vs. transplanted heart: [place] heart Associated angina: without angina Qualified Code(s): I25.10 - Atherosclerotic heart disease of [place] coronary artery without angina pectoris (6) Hypertension: Qualifiers: Hypertension type: primary hypertension Qualified Code(s): I10 - Essential (primary) hypertension (7) Sarcoma of right lower extremity: (8) Depression: (9) Anxiety and depression: (10) YOLY on CPAP: (11) Heart failure with preserved ejection fraction: (12) Fall: (13) REINA (acute kidney injury): (14) Elevated troponin: (15) Elevated LFTs: (16) COPD (chronic obstructive pulmonary disease): (17) Oxygen dependent: (18) Chronic indwelling Stewart catheter: New Dennise Funes is a 68 year old female with Hx of metastatic undifferentiated pleomorphic sarcoma, mets to lungs, s/p tumor debulking and removal occurred. 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 Also found to have hemoglobin of 9.4, baseline is 10.6, platelet count of 147, creatinine of 2.4, baseline is 0.8, elevated LFTs, CK4 80, 2 sets of troponins 113, 105 and UA positive # Altered mental status-likely secondary to combination of generalized weakness, dehydration, COVID-19 infection, ACS and UTI. Admit to ICU CT head negative for any acute findings Neurochecks every shift # Fall-likely secondary to generalized weakness and hypoxia X-ray right hip showed no acute fracture, intact right total hip arthroplasty Also has elevated CK at 480 secondary to fall Continue supplementary oxygen to keep saturation more than 90% Continue IV fluids Fall precautions # COVID-19 infection-generalized weakness, thrombocytopenia, elevated LFTs Chest x-ray showed no acute findings Will start IV remdesivir 200 mg daily for 4 days Continue IV ceftriaxone 1 g daily IV fluids normal saline at 100 cc/h Contact and airborne precautions Continue to trend LFTs. # Elevated troponins-possibly due to ACS versus hypertension EKG reviewed, no acute ST-T changes Continue to trend troponins Continuous cardiac telemetry monitoring Check echo Continue HEADER MACHINE OPERATOR aspirin, metoprolol # Acute kidney injury-likely secondary to dehydration and COVID-19 infection Follow-up labs in a.m. continue IV fluids as above # UTI-will continue IV ceftriaxone and IV fluids as above Has chronic indwelling urinary catheter. Urine culture from 02/13 consistent with E. coli and Enterobacteriaceae UTI # Hypertension-continue HEADER MACHINE OPERATOR chlorthalidone # Depression-continue HEADER MACHINE OPERATOR duloxetine and escitalopram #COPD-stable Continue supplemental oxygen and DuoNebs every 6 hours Pain control with p.o. meloxicam 15 mg daily and p.o. Percocet 1 tab every 4 hours as needed for breakthrough pain. DVT prophylaxis with subcutaneous Lovenox GI prophylaxis with IV Pepcid 20 mg twice daily CODE STATUS discussed with the patient, she is full code. N.p.o. for now secondary to altered mental status. PT/OT eval and treat Case management consult for discharge planning Attestations 2 Medical Necessity Statement*: She needs continued hospitalization anticipating crossing 2 midnights for management of altered mental status, generalized weakness, UTI and COVID-19 infection. Time Spent in Patient Care: 60 minutes Coding Level of Care Code Critical Care >/= 30 minutes Diagnoses Encephalopathy G93.40 Weakness R53.1 Urinary tract infection N39.0 COVID-19 U07.1 Coronary artery disease involving [place] coronary artery of [place] heart without angina pectoris I25.10 Coronary Disease-Associated Artery/Lesion type: [place] artery [place] vs. transplanted heart: [place] heart Associated angina: without angina Primary hypertension I10 Hypertension type: primary hypertension Sarcoma of right lower extremity C49.21 Depression F32.A Anxiety and depression F41.9; F32.9 YOLY on CPAP G47.33; Z99.89 Heart failure with preserved ejection fraction I50.30 Fall W19.XXXA REINA (acute kidney injury) N17.9 Elevated troponin R79.89 Elevated LFTs R79.89 Chronic obstructive pulmonary disease, unspecified COPD type J44.9 Oxygen dependent Z99.81 Chronic indwelling Stewart catheter Z97.8 Time Spent (min) 60
[2024-02-17] MEDS: cefTRIAXone 1,000 mg SDV 1000 MG IVP (18:02)
[2024-02-17] MEDS: famotidine 20 mg/2 mL INJ IVP (18:59)
--- NOTE | 2024-02-17 18:59 | PC.NURSE ---
This preceptor and nurse June GOSS assumed care of patient at shift change in ED.
[2024-02-17] MEDS: enoxaparin 40 mg/0.4 mL Syringe SUBCUT (19:01)
[2024-02-17] MEDS: sodium chloride 0.9% 1,000 ML 100 ML IV (19:25)
[2024-02-17] MEDS: ipratropium-albuterol 3 mL Neb INHALATION (19:56)
--- NOTE | 2024-02-17 20:01 | ECG_ITS ---
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 Measurements Intervals [place] Rate: 96 P: 62 VA: 185 QRS: 30 QRSD: 151 T: 59 QT: 408 QTc: 516 Interpretive Statements SINUS RHYTHM INTRAVENTRICULAR CONDUCTION DELAY [130+ ms QRS DURATION] Compared to ECG 02/17/2024 15:53:44 Intraventricular conduction delay now present Left bundle-branch block no longer present Electronically Signed On 02-18-2024 21:17:08 CDT by Iftikhar Bradley M.D. [id number]
--- NOTE | 2024-02-17 20:04 | PC.NURSE ---
Report was called by June GOSS to Qian GOSS in ICU. Patient was transferred via stretcher with all paperwork and belongings, with daughter at bedside.
[2024-02-17] MEDS: remdesivir 200 MG in sodium chloride 0.9% (100 ml) 60 ML 100 MG IV (20:31)
[2024-02-17 20:56] LABS: Troponin 5 6HR Delta -6.4 ng/L (0-12)
[2024-02-17 20:57] LABS: Troponin 5 6HR 106.6 ng/L (0-10)
[2024-02-18] VITALS (24 sets, daily range): BP systolic 112–205; BP diastolic 47–87; PULSE 77–105; RESP 14–23; TEMP 36.1–36.6; O2SAT 91–100; BMI 40.6
[2024-02-18] MEDS: ipratropium-albuterol 3 mL Neb INHALATION ×4 (02:40→20:17)
[2024-02-18] MEDS: oxyCODONE-APAP 5-325 mg Tablet 1 TAB PO ×4 (02:52→21:08)
[2024-02-18 03:43] LABS: Basophils % 0.3 %; Eosinophils # 0.1 10^3/uL (0.0-0.8); Eosinophils % 1.7 %; Hematocrit 28.4 % (36-47); Lymphocytes # 0.7 10^3/uL (0.8-4.8); Lymphocytes % 19.8 %; Mean Corpuscular HGB Conc 29.6 g/dL (30-55); Mean Corpuscular Hemoglobin 30.4 pg (27-33); Mean Corpuscular Volume 102.9 fl (85-98); Mean Platelet Volume 9.7 fL (7.4-10.4); Monocytes # 0.3 10^3/uL (0.2-0.9); Monocytes % 8.5 %; Neutrophils # 2.45 10^3/uL (1.8-7.7); Neutrophils % 69.1 %; Nucleated Red Blood Cells % 0 %; Platelet Count 134 10^3/cmm (157-399); Red Blood Count 2.76 10^6/uL (3.85-5.65); Red Cell Distribution Width 17.1 % (12.1-15.1); White Blood Count 3.54 10^3/uL (3.29-11.43)
[2024-02-18 04:08] LABS: Total Bilirubin 0.4 mg/dL (0.15-1.2)
[2024-02-18 04:11] LABS: Lactic Sepsis W/Reflex 0.7 mmol/L (0.5-2.2); NT Pro B Type Natriuretic Pept 3979 pg/mL (0-125); Procalcitonin 0.16 ng/mL (0-0.5)
[2024-02-18 04:31] LABS: Alanine Aminotransferase 476 U/L (0-33); Albumin Level 3.1 g/dL (3.5-5.2); Alkaline Phosphatase 144 U/L (35-105); Anion Gap 14.8 (5-19); Aspartate Amino Transferase 245 U/L (0-32); Blood Urea Nitrogen 30 mg/dL (8-23); Calcium 6.7 mg/dL (8.5-10.5); Carbon Dioxide 28 mmol/L (22-29); Chloride 104 mmol/L (98-107); Creatinine Clr Calc Pharmacy 45.0197; Globulin 1.9 g/dL (1.3-4.6); Glomerular Filtration Rate 37.5 mL/min (90-130); Glucose 101 mg/dL (65-115); Magnesium 2.3 mg/dL (1.7-2.3); Osmolality Calculated 302 mOsm/kg (285-295); Potassium 3.8 mmol/L (3.5-5.1); Sodium 143 mmol/L (136-145)
[2024-02-18] MEDS: sodium chloride 0.9% 1,000 ML 100 ML IV ×2 (05:41→17:02)
[2024-02-18] MEDS: aspirin 81 mg Chew Tablet PO (05:41)
[2024-02-18] MEDS: famotidine 20 mg/2 mL INJ IVP ×2 (05:41→17:12)
--- NOTE | 2024-02-18 06:00 | USCV_ITS ---
Dennise Funes Age: 68 Gender: F : 1955 Exam Date: 02/18/2024 10:01 Ordering Phys: Jesenia Rider MD Technologist: Neville Casey Exam Location: [facility] [place] Indication: elevated troponins BP: 145 / 59 HR: 75 Rhythm: Sinus Technical Quality: Adequate MEASUREMENTS (Male / Female) Normal Values 2D ECHO LV Diastolic Diameter PLAX 3.3 cm 4.2 - 5.9 / 3.9 - 5.3 cm IVS Diastolic Thickness 1.0 cm 0.6 - 1.0 / 0.6 - 0.9 cm IVS Systolic Thickness 1.6 cm LVPW Diastolic Thickness 1.7 cm 0.6 - 1.0 / 0.6 - 0.9 cm LVPW Systolic Thickness 2.0 cm LVOT Diameter 2.0 cm LV Ejection Fraction 2D Teich 59.4 % LV Ejection Fraction MOD 4C 57.0 % LV Ejection Fraction MOD 2C 52.3 % LV Ejection Fraction 2C AL 52.0 % LA Diameter 3.3 cm RA Systolic Volume 4C AL 56.1 ml RA Systolic Volume 4C MOD 57.7 ml LA Sys Volume AL 78.4 cm cubed LA Sys Volume Index AL 35.6 cm cubed/m squared Aorta at Sinotubular Diameter 2.1 cm IVC Diameter 2.5 cm M-MODE LA Ao Ratio MM 1.4 AV Cusp Separation MM 1.6 cm DOPPLER AV Peak Velocity 176.0 cm/s LVOT Peak Velocity 158.0 cm/s AV Area Cont Eq vti 3.0 cm squared AV Area Cont Eq pk 2.8 cm squared MV Peak Velocity 132.0 cm/s MV Area PHT 8.1 cm squared Mitral E to A Ratio 1.1 TR Peak Velocity 350.0 cm/s TR Peak Gradient 49.0 mmHg TR Mean Velocity 263.0 cm/s TR Mean Gradient 30.4 mmHg TR Velocity Time Integral 105.0 cm PV Peak Velocity 123.7 cm/s RV Ejection Time 0.4 s FINDINGS Left Ventricle Normal LV size with a slightly diminished ejection fraction of 52%.abnormal septal motion consistent with conduction abnormality. Right Ventricle The right ventricle is normal in size and function. Right Atrium The right atrium is normal in size. Left Atrium Moderately increased left atrial volume 35.6 ml/m squared. Mitral Valve Thickened mitral valve. Trace to mild mitral valve regurgitation. Aortic Valve No gross abnormalities noted Tricuspid Valve Trace tricuspid valve regurgitation. Estimated pulmonary artery peak systolic pressure 59 mmHg Pulmonic Valve Pulmonic valve not well visualized. Pericardium Normal pericardium without effusion. Aorta Normal ascending aorta dimension. IVC Normal IVC dimension with <50% respiratory change of the inferior vena cava. CONCLUSIONS Normal LV size with a slightly diminished ejection fraction of 52%.abnormal septal motion consistent with conduction abnormality. Moderately increased left atrial volume 35.6 ml/m squared. Thickened mitral valve. Trace to mild mitral valve regurgitation. Trace tricuspid valve regurgitation. Estimated pulmonary artery peak systolic pressure 59 mmHg., Moderate pulmonary hypertension. There is no pericardial effusion. There are no intracardiac masses. Compared to the study from 11/19/2022, there is development of pulmonary hypertension Dr Iftikhar Bradley MD FAC (Electronically Signed) Final Date: 18 February 2024 15:05 S
[2024-02-18] MEDS: chlorthalidone 25 mg Tablet 50 MG PO (08:51)
[2024-02-18] MEDS: metoprolol tartrate 25 mg Tablet 12.5 MG PO ×2 (08:51→17:06)
[2024-02-18] MEDS: duloxetine 30 mg Capsule PO (08:52)
[2024-02-18] MEDS: escitalopram 10 mg Tablet 20 MG PO (08:52)
[2024-02-18] MEDS: meloxicam 7.5 mg tablet 15 MG PO (08:53)
--- NOTE | 2024-02-18 09:46 | PC.NURSE ---
doctor here increased diet at this time decreased ow to 4 lnc at this time for transfer to floor
--- NOTE | 2024-02-18 10:35 | P.PN_ITS ---
Subjective 2 Subjective: No acute overnight events noted. Seen her at bedside this morning. She was more alert awake oriented x 3. Ate her breakfast this morning denies any complaint of chest pain, dizziness, palpitations or nausea or vomiting. Medications: Reviewed: Yes Vitals/I&O/Wt Last Vital Signs Temp 97.9 F 02/18/24 04:00 Pulse 90 02/18/24 08:37 Resp 22 H 02/18/24 08:52 BP 205/87 02/18/24 08:23 Pulse Ox 98 02/18/24 08:52 O2 Del Method High Flow Nasal Cannula 02/18/24 08:30 O2 Flow Rate 4 02/18/24 08:30 02/17/24 02/18/24 02/18/24 22:59 06:59 14:59 Intake Total 600 / 600 1000 / 1600 200 / 200 Output Total 2049 / 2049 Balance 600 / 600 -1050 / -450 200 / 200 Weight last 48 hrs Weight 104.236 kg Weight 104.236 kg Weight 86.183 kg Physical Exam 2 Narrative: She is alert awake oriented x 2, not in acute distress, mental status improved as compared to admission Chest air entry equal on both sides, coarse rhonchi and wheezing present CVS normal heart sounds Abdomen soft nontender nondistended normal bowel sounds, extensive deformed surgical scar present on the right side extending from right subcostal to right groin Extremity no edema noted left lower extremity, right lower extremity 1+ pitting edema and surgical scar extending from right knee to right ankle present Data 02/18/24 03:36 02/18/24 03:36 Micro: Microbiology 02/17/24 14:40 Blood Culture - Preliminary Blood SPECIMEN COLLECTED 02/17/24 14:30 Blood Culture - Preliminary Blood SPECIMEN COLLECTED A&P Assessment and plan (1) Encephalopathy: (2) Weakness: (3) Urinary tract infection: (4) COVID-19: (5) CAD (coronary artery disease): Qualifiers: Associated angina: without angina Coronary Disease-Associated Artery/Lesion type: [place] artery [place] vs. transplanted heart: [place] heart Qualified Code(s): I25.10 - Atherosclerotic heart disease of [place] coronary artery without angina pectoris (6) Hypertension: Qualifiers: Hypertension type: primary hypertension Qualified Code(s): I10 - Essential (primary) hypertension (7) Sarcoma of right lower extremity: (8) Depression: (9) Anxiety and depression: (10) YOLY on CPAP: (11) Heart failure with preserved ejection fraction: (12) Fall: (13) REINA (acute kidney injury): (14) Elevated troponin: (15) Elevated LFTs: (16) COPD (chronic obstructive pulmonary disease): (17) Oxygen dependent: (18) Chronic indwelling Stewart catheter: New Dennise Funes is a 68 year old female with Hx of metastatic undifferentiated pleomorphic sarcoma, mets to lungs, s/p tumor debulking and removal occurred. 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 Also found to have hemoglobin of 9.4, baseline is 10.6, platelet count of 147, creatinine of 2.4, baseline is 0.8, elevated LFTs, CK4 80, 2 sets of troponins 113, 105 and UA positive # Altered mental status-likely secondary to combination of generalized weakness, dehydration, COVID-19 infection, ACS and UTI. Admit to ICU CT head negative for any acute findings Neurochecks every shift # Fall-likely secondary to generalized weakness and hypoxia X-ray right hip showed no acute fracture, intact right total hip arthroplasty Also has elevated CK at 480 secondary to fall Continue supplementary oxygen to keep saturation more than 90% Continue IV fluids Fall precautions # COVID-19 infection-generalized weakness, thrombocytopenia, elevated LFTs Chest x-ray showed no acute findings Will start IV remdesivir 200 mg daily for 4 days Continue IV ceftriaxone 1 g daily IV fluids normal saline at 100 cc/h Contact and airborne precautions Continue to trend LFTs. # Elevated troponins-possibly due to ACS versus hypertension EKG reviewed, no acute ST-T changes Continue to trend troponins Continuous cardiac telemetry monitoring Check echo Continue COMMUNITY RELATIONS MANAGER aspirin, metoprolol # Acute kidney injury-likely secondary to dehydration and COVID-19 infection Follow-up labs in a.m. continue IV fluids as above # UTI-will continue IV ceftriaxone and IV fluids as above Has chronic indwelling urinary catheter. Urine culture from 02/13 consistent with E. coli and Enterobacteriaceae UTI # Hypertension-continue COMMUNITY RELATIONS MANAGER chlorthalidone # Depression-continue COMMUNITY RELATIONS MANAGER duloxetine and escitalopram #COPD-stable Continue supplemental oxygen and DuoNebs every 6 hours Pain control with p.o. meloxicam 15 mg daily and p.o. Percocet 1 tab every 4 hours as needed for breakthrough pain. DVT prophylaxis with subcutaneous Lovenox GI prophylaxis with IV Pepcid 20 mg twice daily CODE STATUS discussed with the patient, she is full code. N.p.o. for now secondary to altered mental status. PT/OT eval and treat Case management consult for discharge planning 02/17--altered mental status resolved. Hemoglobin today is 8.4, platelets 134, creatinine trending down to 1.4, REINA resolving, LFTs trending down. Elevated troponins 113,105,106 likely secondary to demand ischemia, will check echo. Continue IV remdesivir IV ceftriaxone and fluids. Will follow-up blood cultures. Will need home oxygen evaluation on discharge. Will transfer to medical surgical floor for further care. Attestations 2 Medical Necessity Statement*: She needs continued hospitalization anticipating crossing 2 midnights for management of altered mental status, generalized weakness, UTI and COVID-19 infection. Time Spent in Patient Care: 20 minutes Coding Level of Care Code Acute Code for g Fwd Diagnoses Encephalopathy G93.40 Weakness R53.1 Urinary tract infection N39.0 COVID-19 U07.1 Coronary artery disease involving [place] coronary artery of [place] heart without angina pectoris I25.10 Associated angina: without angina Coronary Disease-Associated Artery/Lesion type: [place] artery [place] vs. transplanted heart: [place] heart Primary hypertension I10 Hypertension type: primary hypertension Sarcoma of right lower extremity C49.21 Depression F32.A Anxiety and depression F41.9; F32.9 YOLY on CPAP G47.33; Z99.89 Heart failure with preserved ejection fraction I50.30 Fall W19.XXXA REINA (acute kidney injury) N17.9 Elevated troponin R79.89 Elevated LFTs R79.89 Chronic obstructive pulmonary disease, unspecified COPD type J44.9 Oxygen dependent Z99.81 Chronic indwelling Stewart catheter Z97.8 Time Spent (min) 20
--- NOTE | 2024-02-18 14:51 | PC.NURSE ---
report called transfered to upstairs at this time
[2024-02-18] MEDS: cefTRIAXone 1,000 mg SDV 1000 MG IVP (17:03)
[2024-02-18] MEDS: remdesivir 100 MG in sodium chloride 0.9% (100 ml) 80 ML IV (17:06)
[2024-02-18] MEDS: enoxaparin 40 mg/0.4 mL Syringe SUBCUT (17:12)
[2024-02-18 17:13] LABS: Glucose Point of Care 143 mg/dL (70-110)
[2024-02-18] MEDS: LORazepam 2 mg/mL INJ 1 mL 0.5 MG IVP (18:32)
[2024-02-18] MEDS: morphine ER (12 HR) 100 mg Tablet PO (19:35)
[2024-02-18] MEDS: gabapentin 100 mg Capsule PO (21:02)
[2024-02-19] VITALS (21 sets, daily range): BP systolic 152–201; BP diastolic 57–78; PULSE 70–90; RESP 16–19; TEMP 36.6–37.6; O2SAT 91–98
[2024-02-19] MEDS: ipratropium-albuterol 3 mL Neb INHALATION ×4 (02:25→20:12)
[2024-02-19] MEDS: sodium chloride 0.9% 1,000 ML 100 ML IV ×3 (03:00→23:20)
[2024-02-19 04:52] LABS: Basophils % 0.5 %; Eosinophils # 0.1 10^3/uL (0.0-0.8); Eosinophils % 2.9 %; Hematocrit 28.8 % (36-47); Lymphocytes # 0.8 10^3/uL (0.8-4.8); Lymphocytes % 17.2 %; Mean Corpuscular HGB Conc 30.2 g/dL (30-55); Mean Corpuscular Hemoglobin 30.4 pg (27-33); Mean Corpuscular Volume 100.7 fl (85-98); Mean Platelet Volume 9.8 fL (7.4-10.4); Monocytes # 0.4 10^3/uL (0.2-0.9); Monocytes % 9.3 %; Neutrophils # 3.05 10^3/uL (1.8-7.7); Neutrophils % 69.2 %; Nucleated Red Blood Cells % 0 %; Platelet Count 160 10^3/cmm (157-399); Red Blood Count 2.86 10^6/uL (3.85-5.65); Red Cell Distribution Width 17.1 % (12.1-15.1); White Blood Count 4.41 10^3/uL (3.29-11.43)
[2024-02-19 05:03] LABS: Alanine Aminotransferase 318 U/L (0-33); Alkaline Phosphatase 135 U/L (35-105); Anion Gap 10.8 (5-19); Aspartate Amino Transferase 95 U/L (0-32); Blood Urea Nitrogen 14 mg/dL (8-23); Calcium 7.6 mg/dL (8.5-10.5); Carbon Dioxide 29 mmol/L (22-29); Chloride 106 mmol/L (98-107); Creatinine Clr Calc Pharmacy 78.4937; Globulin 2.4 g/dL (1.3-4.6); Glomerular Filtration Rate 83.5 mL/min (90-130); Glucose 115 mg/dL (65-115); Magnesium 2.1 mg/dL (1.7-2.3); Osmolality Calculated 295 mOsm/kg (285-295); Potassium 3.8 mmol/L (3.5-5.1); Sodium 142 mmol/L (136-145); Total Bilirubin 0.4 mg/dL (0.15-1.2); Total Protein 5.4 g/dL (6.6-8.7)
[2024-02-19] MEDS: aspirin 81 mg Chew Tablet PO (05:20)
[2024-02-19] MEDS: famotidine 20 mg/2 mL INJ IVP ×2 (05:20→18:11)
[2024-02-19] MEDS: duloxetine 30 mg Capsule PO (08:33)
[2024-02-19] MEDS: meloxicam 7.5 mg tablet 15 MG PO (08:33)
[2024-02-19] MEDS: escitalopram 10 mg Tablet 20 MG PO (08:33)
[2024-02-19] MEDS: chlorthalidone 25 mg Tablet 50 MG PO (08:33)
[2024-02-19] MEDS: morphine ER (12 HR) 100 mg Tablet PO ×2 (08:33→18:10)
[2024-02-19] MEDS: ondansetron 2 mg/ML SDV 2 mL 4 MG IVP (08:34)
[2024-02-19] MEDS: metoprolol tartrate 25 mg Tablet 12.5 MG PO ×2 (08:34→18:10)
[2024-02-19] MEDS: gabapentin 300 mg Capsule 600 MG PO ×2 (08:41→18:10)
--- NOTE | 2024-02-19 11:56 | PM.PN ---
Subjective Subjective: No acute overnight events noted. Had an episode of anxiety attack last evening, restarted her home medications morphine and gabapentin. Counseled about plan of care, she understands and agreed to cooperate. Medications: Reviewed: Yes Vitals/I&O/Wt Last Vital Signs Temp 99.2 F 02/19/24 08:00 Pulse 74 02/19/24 09:06 Resp 16 02/19/24 09:00 BP 176/78 02/19/24 08:00 Pulse Ox 95 02/19/24 09:00 O2 Del Method Nasal Cannula 02/19/24 09:00 O2 Flow Rate 2 02/19/24 09:48 02/18/24 02/19/24 02/19/24 22:59 06:59 14:59 Intake Total 1340 / 1840 996.667 / 2836.667 360 / 360 Balance 1340 / 640 996.667 / 1636.667 360 / 360 Weight last 48 hrs Weight 103.561 kg Weight 104.236 kg Weight 104.236 kg Weight 86.183 kg Physical Exam Narrative: She is alert awake oriented x 2, not in acute distress, mental status improved as compared to admission Chest air entry equal on both sides, coarse rhonchi and wheezing present CVS normal heart sounds Abdomen soft nontender nondistended normal bowel sounds, extensive deformed surgical scar present on the right side extending from right subcostal to right groin Extremity no edema noted left lower extremity, right lower extremity 1+ pitting edema and surgical scar extending from right knee to right ankle present Data 02/19/24 04:00 02/19/24 04:00 Micro: Microbiology 02/17/24 14:40 Blood Culture - Preliminary Blood NEGATIVE TO DATE 02/17/24 14:30 Blood Culture - Preliminary Blood NEGATIVE TO DATE A&P Assessment and plan (1) Encephalopathy: (2) Weakness: (3) Urinary tract infection: (4) COVID-19: (5) CAD (coronary artery disease): Qualifiers: Coronary Disease-Associated Artery/Lesion type: holy cross artery [place] vs. transplanted heart: holy cross heart Associated angina: without angina Qualified Code(s): I25.10 - Atherosclerotic heart disease of holy cross coronary artery without angina pectoris (6) Hypertension: Qualifiers: Hypertension type: primary hypertension Qualified Code(s): I10 - Essential (primary) hypertension (7) Sarcoma of right lower extremity: (8) Depression: (9) Anxiety and depression: (10) YOLY on CPAP: (11) Heart failure with preserved ejection fraction: (12) Fall: (13) REINA (acute kidney injury): (14) Elevated troponin: (15) Elevated LFTs: (16) COPD (chronic obstructive pulmonary disease): (17) Oxygen dependent: (18) Chronic indwelling Stewart catheter: Plan Dennise Funes is a 68 year old female with Hx of metastatic undifferentiated pleomorphic sarcoma, mets to lungs, s/p tumor debulking and removal occurred. 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 Also found to have hemoglobin of 9.4, baseline is 10.6, platelet count of 147, creatinine of 2.4, baseline is 0.8, elevated LFTs, CK4 80, 2 sets of troponins 113, 105 and UA positive # Altered mental status-likely secondary to combination of generalized weakness, dehydration, COVID-19 infection, ACS and UTI. Admit to ICU CT head negative for any acute findings Neurochecks every shift # Fall-likely secondary to generalized weakness and hypoxia X-ray right hip showed no acute fracture, intact right total hip arthroplasty Also has elevated CK at 480 secondary to fall Continue supplementary oxygen to keep saturation more than 90% Continue IV fluids Fall precautions # COVID-19 infection-generalized weakness, thrombocytopenia, elevated LFTs Chest x-ray showed no acute findings Will start IV remdesivir 200 mg daily for 4 days Continue IV ceftriaxone 1 g daily IV fluids normal saline at 100 cc/h Contact and airborne precautions Continue to trend LFTs. # Elevated troponins-possibly due to ACS versus hypertension EKG reviewed, no acute ST-T changes Continue to trend troponins Continuous cardiac telemetry monitoring Check echo Continue SEA KAYAKING GUIDE aspirin, metoprolol # Acute kidney injury-likely secondary to dehydration and COVID-19 infection Follow-up labs in a.m. continue IV fluids as above # UTI-will continue IV ceftriaxone and IV fluids as above Has chronic indwelling urinary catheter. Urine culture from 02/13 consistent with E. coli and Enterobacteriaceae UTI # Hypertension-continue SEA KAYAKING GUIDE chlorthalidone # Depression-continue SEA KAYAKING GUIDE duloxetine and escitalopram #COPD-stable Continue supplemental oxygen and DuoNebs every 6 hours Pain control with p.o. meloxicam 15 mg daily and p.o. Percocet 1 tab every 4 hours as needed for breakthrough pain. DVT prophylaxis with subcutaneous Lovenox GI prophylaxis with IV Pepcid 20 mg twice daily CODE STATUS discussed with the patient, she is full code. N.p.o. for now secondary to altered mental status. PT/OT eval and treat Case management consult for discharge planning 02/17--altered mental status resolved. Hemoglobin today is 8.4, platelets 134, creatinine trending down to 1.4, REINA resolving, LFTs trending down. Elevated troponins 113,105,106 likely secondary to demand ischemia, will check echo. Continue IV remdesivir IV ceftriaxone and fluids. Will follow-up blood cultures. Will need home oxygen evaluation on discharge. Will transfer to medical surgical floor for further care. 02/21--altered mental status resolved, REINA resolved. LFTs trending down and hemoglobin stable at 8.7. Continue IV remdesivir day 3 today along with IV ceftriaxone. 2D echo showed Normal LV size with a slightly diminished ejection fraction of 52%.abnormal septal motion consistent with conduction abnormality. Moderately increased left atrial volume 35.6 ml/m squared. Thickened mitral valve. Trace to mild mitral valve regurgitation. Trace tricuspid valve regurgitation. Estimated pulmonary artery peak systolic pressure 59 mmHg., Moderate pulmonary hypertension. There is no pericardial effusion. There are no intracardiac masses. Compared to the study from 11/19/2022, there is development of pulmonary hypertension Since pulmonary artery pressure increased from 45+ to 59, might need CTA chest to rule out PE also in view of COVID-19 infection. If CTA negative she might need cardiology consult for abnormal echo. Attestations Medical Necessity Statement*: She needs continued hospitalization anticipating crossing 2 midnights for management of , UTI and COVID-19 infection. Workup for worsening pulmonary artery hypertension with CTA chest. Time Spent in Patient Care: 20 minutes Coding Level of Care Code Acute Code for [facility] Fwd Diagnoses Encephalopathy G93.40 Weakness R53.1 Urinary tract infection N39.0 COVID-19 U07.1 Coronary artery disease involving holy cross coronary artery of holy cross heart without angina pectoris I25.10 Coronary Disease-Associated Artery/Lesion type: holy cross artery [place] vs. transplanted heart: holy cross heart Associated angina: without angina Primary hypertension I10 Hypertension type: primary hypertension Sarcoma of right lower extremity C49.21 Depression F32.A Anxiety and depression F41.9; F32.9 YOLY on CPAP G47.33; Z99.89 Heart failure with preserved ejection fraction I50.30 Fall W19.XXXA REINA (acute kidney injury) N17.9 Elevated troponin R79.89 Elevated LFTs R79.89 Chronic obstructive pulmonary disease, unspecified COPD type J44.9 Oxygen dependent Z99.81 Chronic indwelling Stewart catheter Z97.8 Time Spent (min) 20
--- NOTE | 2024-02-19 12:00 | CTR_ITS ---
PROCEDURE INFORMATION: Exam: CTA Chest With Contrast Exam date and time: 02/19/2024 1:11 PM Age: 68 years old Clinical indication: Shortness of breath; Additional info: Elevated pulmonary artery pressure and AMS on admission, also has covid 19 infection. TECHNIQUE: Imaging protocol: Computed tomographic angiography of the chest with contrast. Exam focused on the arteries. 3D rendering (Not supervised by radiologist): MIP and/or 3D reconstructed images were created by the technologist. Radiation optimization: All CT scans at this facility use at least one of these dose optimization techniques: automated exposure control; mA and/or kV adjustment per patient size (includes targeted exams where dose is matched to clinical indication); or iterative reconstruction. Contrast material: OMNI 350; Contrast volume: 50 ml; Contrast route: INTRAVENOUS (IV); COMPARISON: CT angio chest PE protcl [id number] 05/14/2022 9:10 AM RADIATION DOSE METRICS: Total DLP (mGy-cm): 486.94 FINDINGS: Tubes, catheters and devices: There is an implanted right chest wall medication port with tip in the superior right atrium. Pulmonary arteries: The pulmonary arteries are well opacified with contrast. No evidence of a pulmonary embolism. Aorta: Aortic atherosclerosis without aneurysm or dissection. Lungs: Minimal consolidation in the lung bases likely atelectasis. Mild scattered emphysematous changes predominantly in the upper lobes. Mild interlobular septal thickening in the lung bases. Within the lingula anteriorly there is a linear nodular band-like area with nodular component measuring approximately 2 cm in size with spiculated margins. It is unclear if this represents scarring or mass. This has increased from prior comparison. Pleural spaces: No pneumothorax. Small bilateral pleural effusions. Heart: Normal size of the heart. No pericardial effusion.Coronary artery calcification is present. Lymph nodes: Small scattered mediastinal lymph nodes which are grossly stable from 07/10/2022 comparison. Upper abdomen: Prior cholecystectomy. Decreased hepatic attenuation suggesting steatosis. Mass like enlargement of both adrenal glands has minimally decreased from prior comparison of 05/14/2022. Tiny hiatal hernia of the stomach. Upper abdominal structures are otherwise unremarkable. Bones/joints: Remote prior healed left-sided rib fractures. No acute fracture is seen. Trace scattered spinal degenerative changes. No aggressive osseous lesion suggested. Soft tissues: Partially imaged postsurgical change along the right upper anterior abdominal wall with surgical clips noted. Superficial tissues are otherwise unremarkable. CT/CT angio chest PE protcl [id number] IMPRESSION: 1. No evidence of a pulmonary embolism. 2. Small bilateral pleural effusions. 3. Nodular masslike band within the lingula measuring approximately 2 cm, increased from prior comparison. It is unclear whether this represents incidental scarring or possible spiculated mass which has increased from prior. There is also mediastinal lymphadenopathy which is grossly unchanged from prior. PET-CT may help clarify if clinically warranted. 4. Unchanged masslike enlargement of both adrenal glands from prior. 5. Other chronic findings as above.
[2024-02-19] MEDS: oxyCODONE-APAP 5-325 mg Tablet 1 TAB PO (12:10)
[2024-02-19] MEDS: iohexol 350 mg/mL 500 mL Btl (per mL) IV (13:15)
[2024-02-19] MEDS: enoxaparin 40 mg/0.4 mL Syringe SUBCUT (18:08)
[2024-02-19] MEDS: remdesivir 100 MG in sodium chloride 0.9% (100 ml) 80 ML IV (18:08)
[2024-02-19] MEDS: IVOSIDENIB 500 EACH PO (18:09)
[2024-02-19] MEDS: cefTRIAXone 1,000 mg SDV 1000 MG IVP (18:11)
[2024-02-20] VITALS (17 sets, daily range): BP systolic 161–179; BP diastolic 70–82; PULSE 63–88; RESP 18–20; TEMP 36.8–37.1; O2SAT 92–97
[2024-02-20] MEDS: ipratropium-albuterol 3 mL Neb INHALATION ×4 (02:17→21:03)
[2024-02-20] MEDS: oxyCODONE-APAP 5-325 mg Tablet 1 TAB PO ×4 (02:27→21:40)
[2024-02-20 05:36] LABS: Basophils % 0.6 %; Eosinophils # 0.2 10^3/uL (0.0-0.8); Eosinophils % 4.2 %; Hematocrit 29.7 % (36-47); Lymphocytes # 1.1 10^3/uL (0.8-4.8); Lymphocytes % 21.1 %; Mean Corpuscular Hemoglobin 30.4 pg (27-33); Mean Corpuscular Volume 101.4 fl (85-98); Mean Platelet Volume 9.8 fL (7.4-10.4); Monocytes # 0.5 10^3/uL (0.2-0.9); Monocytes % 9.8 %; Neutrophils # 3.17 10^3/uL (1.8-7.7); Neutrophils % 63.7 %; Nucleated Red Blood Cells % 0 %; Platelet Count 177 10^3/cmm (157-399); Red Blood Count 2.93 10^6/uL (3.85-5.65); Red Cell Distribution Width 17.4 % (12.1-15.1); White Blood Count 4.98 10^3/uL (3.29-11.43)
[2024-02-20 05:53] LABS: Alanine Aminotransferase 221 U/L (0-33); Alkaline Phosphatase 128 U/L (35-105); Anion Gap 10.6 (5-19); Aspartate Amino Transferase 51 U/L (0-32); Blood Urea Nitrogen 5 mg/dL (8-23); Calcium 7.9 mg/dL (8.5-10.5); Carbon Dioxide 28 mmol/L (22-29); Chloride 103 mmol/L (98-107); Creatinine Clr Calc Pharmacy 80.2406; Globulin 2.6 g/dL (1.3-4.6); Glomerular Filtration Rate 83.5 mL/min (90-130); Glucose 106 mg/dL (65-115); Magnesium 1.8 mg/dL (1.7-2.3); Osmolality Calculated 284 mOsm/kg (285-295); Potassium 3.6 mmol/L (3.5-5.1); Sodium 138 mmol/L (136-145); Total Bilirubin 0.4 mg/dL (0.15-1.2); Total Protein 5.6 g/dL (6.6-8.7)
[2024-02-20] MEDS: aspirin 81 mg Chew Tablet PO (06:26)
[2024-02-20] MEDS: famotidine 20 mg/2 mL INJ IVP ×2 (06:26→17:55)
[2024-02-20] MEDS: metoprolol tartrate 25 mg Tablet 12.5 MG PO ×2 (09:10→17:54)
[2024-02-20] MEDS: gabapentin 300 mg Capsule 600 MG PO ×2 (09:10→17:55)
[2024-02-20] MEDS: escitalopram 10 mg Tablet 20 MG PO (09:10)
[2024-02-20] MEDS: meloxicam 7.5 mg tablet 15 MG PO (09:10)
[2024-02-20] MEDS: morphine ER (12 HR) 100 mg Tablet PO ×2 (09:11→17:54)
[2024-02-20] MEDS: chlorthalidone 25 mg Tablet 50 MG PO (09:11)
[2024-02-20] MEDS: duloxetine 30 mg Capsule PO (09:11)
[2024-02-20] MEDS: IVOSIDENIB 500 EACH PO (09:13)
[2024-02-20] MEDS: sodium chloride 0.9% 1,000 ML 100 ML IV (09:20)
--- NOTE | 2024-02-20 10:28 | PC.SOCIAL ---
IMM Update pg 2 of IMM Update and reviewed w/ patient. Copy provided and copy dated, initialed and placed in chart.
--- NOTE | 2024-02-20 11:46 | P.PN_ITS ---
Subjective 2 Subjective: Patient is stating that she is feeling slightly better Currently on 2 L oxygen Afebrile She is not sure whether she will opt for care home placement however her family was very concerned about her condition Hypertensive No overnight events Vitals/I&O/Wt Last Vital Signs Temp 98.4 F 02/20/24 07:45 Pulse 78 02/20/24 10:02 Resp 18 02/20/24 10:02 BP 161/82 02/20/24 07:45 Pulse Ox 96 02/20/24 10:02 O2 Del Method Nasal Cannula 02/20/24 10:02 O2 Flow Rate 2 02/20/24 10:02 02/19/24 02/20/24 02/20/24 22:59 06:59 14:59 Intake Total 460 / 4825.414 4238 / 2976.667 1360 / 1360 Output Total 2049 / 2049 700 / 2750 Balance -1590 / -73.333 300 / 251.904 9377 / 1360 Weight last 48 hrs Weight 107.615 kg Weight 103.561 kg Physical Exam 2 Narrative: Awake and alert Euvolemic GCS 15 Pleasant Hypertensive Currently on 2 L nasal cannula No audible stridor or wheezing Ate her breakfast Data 02/20/24 05:10 02/20/24 05:10 A&P Assessment and plan (1) Hypertension: Qualifiers: Hypertension type: primary hypertension Qualified Code(s): I10 - Essential (primary) hypertension (2) Elevated troponin: (3) Viral upper respiratory tract infection with cough: (4) Chronic indwelling Stewart catheter: (5) COVID-19: (6) COPD (chronic obstructive pulmonary disease): (7) Lower extremity edema: (8) Weakness: Plan COVID-19 pneumonia Currently on 2 L Patient at baseline uses 2 L of oxygen only at nighttime Significant delta troponin Will require stress test for tomorrow Hypertension: Optimize antihypertensive regimen Continue IV antibiotics ceftriaxone, along remdesivir, Discontinue IV fluids Leukopenia thrombocytopenia: Resolved Full code Home versus SNF Continue current diet N.p.o. after midnight for stress test tomorrow Attestations 2 Medical Necessity Statement*: Continue medical management Diagnoses Primary hypertension I10 Hypertension type: primary hypertension Elevated troponin R79.89 Viral upper respiratory tract infection with cough J06.9 Chronic indwelling Stewart catheter Z97.8 COVID-19 U07.1 Chronic obstructive pulmonary disease, unspecified COPD type J44.9 Lower extremity edema R60.0 Weakness R53.1
--- NOTE | 2024-02-20 11:53 | ECG_ITS ---
[facility] Test Date: 2024-02-21 Pat Name: Dennise Funes Department: Room: 271 Gender: Female Fur Designer: : 1955 Requested By: Agustin Hernandez Order Number: [id number] Evgeny MD: Iftikhar Bradley M.D. Interpretive Statements Lung unchanged pre/post procedure; Intraprocedure shortess of breath; Symptoms resoled by discharge [id number]
[2024-02-20] MEDS: lisinopril 10 mg Tablet PO (12:34)
[2024-02-20] MEDS: cefTRIAXone 1,000 mg SDV 1000 MG IVP (16:42)
[2024-02-20] MEDS: remdesivir 100 MG in sodium chloride 0.9% (100 ml) 80 ML IV (16:51)
[2024-02-20] MEDS: enoxaparin 40 mg/0.4 mL Syringe SUBCUT (17:55)
[2024-02-21] VITALS (22 sets, daily range): BP systolic 124–171; BP diastolic 67–81; PULSE 74–100; RESP 16–20; TEMP 36.6–37.2; O2SAT 91–96
[2024-02-21] MEDS: oxyCODONE-APAP 5-325 mg Tablet 1 TAB PO ×4 (01:52→17:57)
[2024-02-21] MEDS: ipratropium-albuterol 3 mL Neb INHALATION ×4 (02:28→20:51)
[2024-02-21] MEDS: aspirin 81 mg Chew Tablet PO (05:17)
[2024-02-21] MEDS: famotidine 20 mg/2 mL INJ IVP ×2 (05:17→17:59)
[2024-02-21 05:57] LABS: Basophils % 0.7 %; Eosinophils # 0.2 10^3/uL (0.0-0.8); Eosinophils % 4.9 %; Lymphocytes # 1.1 10^3/uL (0.8-4.8); Lymphocytes % 24.9 %; Mean Corpuscular HGB Conc 30.3 g/dL (30-55); Mean Corpuscular Hemoglobin 30.8 pg (27-33); Mean Corpuscular Volume 101.6 fl (85-98); Mean Platelet Volume 9.2 fL (7.4-10.4); Monocytes # 0.4 10^3/uL (0.2-0.9); Monocytes % 9.6 %; Neutrophils % 58.7 %; Nucleated Red Blood Cells % 0 %; Platelet Count 193 10^3/cmm (157-399); Red Blood Count 3.15 10^6/uL (3.85-5.65); Red Cell Distribution Width 17.3 % (12.1-15.1); White Blood Count 4.26 10^3/uL (3.29-11.43)
[2024-02-21 06:13] LABS: Anion Gap 11.7 (5-19); Blood Urea Nitrogen 7 mg/dL (8-23); Calcium 8.1 mg/dL (8.5-10.5); Carbon Dioxide 30 mmol/L (22-29); Chloride 103 mmol/L (98-107); Creatinine Clr Calc Pharmacy 78.8599; Glomerular Filtration Rate 99.7 mL/min (90-130); Glucose 105 mg/dL (65-115); Osmolality Calculated 290 mOsm/kg (285-295); Potassium 3.7 mmol/L (3.5-5.1); Sodium 141 mmol/L (136-145)
--- NOTE | 2024-02-21 10:07 | P.PN_ITS ---
Subjective 2 Subjective: Patient getting IV line for her stress test today No active chest pain or shortness of breath No fever Doing well on room air Depending on stress test further disposition plan was made but most likely if stress test is negative patient will be ready to be discharged Vitals/I&O/Wt Last Vital Signs Temp 98.4 F 02/21/24 07:41 Pulse 83 02/21/24 08:00 Resp 18 02/21/24 08:00 BP 158/79 02/21/24 07:41 Pulse Ox 93 02/21/24 08:00 O2 Del Method Nasal Cannula 02/21/24 08:00 O2 Flow Rate 2 02/21/24 08:00 02/20/24 02/21/24 02/21/24 22:59 06:59 14:59 Intake Total 1190 / 2550 Output Total 1900 / 3850 Balance 1190 / 600 -1900 / -1300 Weight last 48 hrs Weight 104.411 kg Weight 107.615 kg Physical Exam 2 Narrative: Awake and alert No audible stridor or wheezing GCS 15 IV line infiltration noted Nonfocal neuroexam GCS 15 Data 02/21/24 05:34 02/21/24 05:34 A&P Assessment and plan (1) Hypertension: Qualifiers: Hypertension type: primary hypertension Qualified Code(s): I10 - Essential (primary) hypertension (2) Elevated troponin: (3) Viral upper respiratory tract infection with cough: (4) Chronic indwelling Stewart catheter: (5) COVID-19: (6) COPD (chronic obstructive pulmonary disease): (7) Lower extremity edema: (8) Weakness: Plan COVID-19 pneumonia Patient is on room air in the daytime, requires 2 L of oxygen nighttime Significant delta troponin Stress test today, no active chest pain echo unremarkable Hypertension: Optimize antihypertensive regimen, increase the dose of lisinopril to 20 mg twice daily Discontinue IV antibiotics Discontinue IV fluids Full code Home versus SNF Continue current diet Attestations 2 Medical Necessity Statement*: Discharge today versus tomorrow Diagnoses Primary hypertension I10 Hypertension type: primary hypertension Elevated troponin R79.89 Viral upper respiratory tract infection with cough J06.9 Chronic indwelling Stewart catheter Z97.8 COVID-19 U07.1 Chronic obstructive pulmonary disease, unspecified COPD type J44.9 Lower extremity edema R60.0 Weakness R53.1
--- NOTE | 2024-02-21 11:53 | NMCV_ITS ---
NM ines perf SPECT r/s* [id number] Dennise Funes Age: 68 Gender: F : 1955 Exam Date: 02/21/2024 11:53 Ordering Phys: Agustin Hernandez MD Technologist: TANIA Campos Exam Location: [facility] Indications: cp STRESS TEST [facility] IMAGE PROTOCOL Rest/Stress 1 Lexiscan Day Radiopharmaceutical Dose (mCi) Administration Site Administered by Rest: Tc-99m 9.9 IV Obey Renteria, K 12 PRINCIPAL Sestamibi Stress:Tc-99m 33 IV Obey Dexter, K 12 PRINCIPAL Sestamibi Rest: 21-Feb-2024 60 Discovery 630 Stress: 21-Feb-2024 30 Discovery 630 0.4mg Lexiscan. Supine position only as patient was unable to lay prone. Imaging was completed with both arms down as patient was unable to raise them. SPECT RESULTS Technical Quality: Poor Raw Data Analysis: Image Corrections: Patient motion artifact - motion correction not applied Summed Stress Score: 14 Summed Rest Score: 9 Summed Difference Score: 6 PERFUSION FINDINGS Moderate area of moderately decreased tracer uptake involving the mid and apical inferior, mid inferolateral, mid inferoseptal, apical septal and LV apex. Significant reversibility was noted in the mid segments. FUNCTIONAL RESULTS (calculated via Gated SPECT) Stress Image LV EF (%): 55 Stress EDV (mL):111 TID: 0.93 Stress ESV (mL):50 FUNCTIONAL FINDINGS: Segmental wall motion analysis revealing no gross wall motion abnormalities IMPRESSIONS 1. Myocardial perfusion imaging revealing moderate area of moderately decreased tracer uptake involving the mid and apical inferior, inferolateral, inferoseptal and apical regions with significant reversibility, suggesting ischemia distribution of the right coronary artery/circumflex artery. 2. Normal LV ejection fraction 55% with 3. LV wall motion analysis revealing no gross wall motion abnormalities. 4. Mildly dilated LV cavity Compared to the study from 04/30/2022, there is significant increase in the ischemic burden Dr Iftikhar Bradley MD FACC (Electronically Signed) Final Date: 21 February 2024 15:18 S
[2024-02-21] MEDS: regadenoson 0.4 Mg/5 ml Syringe IVP (12:21)
[2024-02-21] MEDS: aminophylline 25 mg/mL SDV 10 mL IVP ×2 (12:31→12:33)
[2024-02-21] MEDS: ondansetron 2 mg/ML SDV 2 mL 4 MG IVP (12:37)
[2024-02-21] MEDS: escitalopram 10 mg Tablet 20 MG PO (13:28)
[2024-02-21] MEDS: duloxetine 30 mg Capsule PO (13:28)
[2024-02-21] MEDS: chlorthalidone 25 mg Tablet 50 MG PO (13:29)
[2024-02-21] MEDS: meloxicam 7.5 mg tablet 15 MG PO (13:29)
[2024-02-21] MEDS: IVOSIDENIB 500 EACH PO (13:30)
[2024-02-21] MEDS: gabapentin 300 mg Capsule 600 MG PO ×2 (13:31→17:59)
[2024-02-21] MEDS: metoprolol tartrate 25 mg Tablet 12.5 MG PO ×2 (13:32→17:58)
[2024-02-21] MEDS: morphine ER (12 HR) 100 mg Tablet PO ×2 (13:34→17:56)
--- NOTE | 2024-02-21 14:38 | PC.NURSE ---
Pt call light on, this nurse entered room, noted pt on floor at approx 1425. Pt on left hip and bilateral hands crying. Pt states fell out of bed. Denies hitting head. CN notified 1426, notified 1435. Assisted pt to chair. Grippy socks on , call light with in reach and locks on chair. Pt states only left knee hurts but able to demonstrate ability to move knee.
--- NOTE | 2024-02-21 15:33 | PC.NURSE ---
Dc'd chronic reis via aseptic procedure. No complications.
[2024-02-21] MEDS: aspirin 325 mg EC Tablet PO (16:27)
[2024-02-21] MEDS: clopidogrel 300 mg Tablet PO (16:27)
[2024-02-21] MEDS: enoxaparin 100 mg/mL Syringe SUBCUT (16:28)
[2024-02-21] MEDS: remdesivir 100 MG in sodium chloride 0.9% (100 ml) 80 ML IV (17:15)
[2024-02-21] MEDS: lisinopril 20 mg Tablet PO (17:59)
[2024-02-21] MEDS: ALPRAZolam 0.5 mg Tablet PO (19:30)
[2024-02-21] MEDS: oxyCODONE 10 mg ER (12 HR) Tablet PO (23:45)
[2024-02-22] VITALS (26 sets, daily range): BP systolic 106–168; BP diastolic 57–107; PULSE 75–95; RESP 13–23; TEMP 36.6–37; O2SAT 89–98
[2024-02-22] MEDS: ipratropium-albuterol 3 mL Neb INHALATION ×4 (02:31→20:30)
[2024-02-22] MEDS: enoxaparin 100 mg/mL Syringe SUBCUT ×2 (03:39→15:37)
[2024-02-22] MEDS: famotidine 20 mg/2 mL INJ IVP ×2 (05:53→17:17)
[2024-02-22] MEDS: aspirin 81 mg Chew Tablet PO (05:53)
[2024-02-22] MEDS: oxyCODONE 10 mg ER (12 HR) Tablet PO ×2 (05:56→21:34)
--- NOTE | 2024-02-22 07:39 | PM.CONSULT ---
Providers/Reason For Consult Consulting Physician/Specialty*: Pawan Staton MD/ Cardiology Reason for Consult*: Troponin elevated/abnormal stress test Requesting Physician: Dr Hernandez Attending Physician: Agustin Hernandez MD Primary Care Provider: Cyril Ramsey MD History of Present Illness History of Present Illness Dennise Funes is a 68 year old female with past medical history of COPD, hypertension who presented to hospital with weakness and shortness of breath. She had recent COVID-pneumonia. Initial troponin was elevated at 113 that trended down. Stress test was performed that he is showing ischemia in RCA territory. No active chest pain at this time. Echo showed normal LV systolic function. EKG showing sinus rhythm with intraventricular conduction delay. Review of Systems General: Reports: 10 or more systems reviewed and unremarkable except in HPI and below Medications/Allergies Home Medications Medication Instructions Recorded Confirmed Last Taken Type nitroglycerin 0.4 mg sublingual 0.4 mg sublingual Q5M PRN Chest 04/30/22 02/17/24 Unknown History tablet (Nitrostat) Pain aspirin 81 mg chewable tablet 81 mg PO QAM 07/10/22 02/17/24 02/17/24 08:00 History cyanocobalamin (vitamin B-12) 500 500 mcg PO DAILY 07/10/22 02/17/24 02/17/24 History mcg tablet (Vitamin B-12) acetaminophen 325 mg capsule 1,300 mg PO BID PRN Pain 01/20/23 02/17/24 02/13/24 History Compression Supporting Hose #1 ea 05/30/23 02/17/24 Unknown Rx escitalopram oxalate 20 mg tablet 20 mg PO DAILY #90 tabs 08/09/23 02/17/24 02/17/24 Rx meloxicam 15 mg tablet 15 mg PO DAILY #90 tabs 08/20/23 02/17/24 02/17/24 Rx metoprolol tartrate 25 mg tablet 12.5 mg PO BID 09/21/23 02/17/24 02/17/24 History ondansetron 4 mg disintegrating 4 mg PO Q6H PRN nausea and 09/21/23 02/17/24 11/02/23 Rx tablet vomiting #14 tabs lidocaine 5 % topical ointment 1 applic topical DAILY PRN Pain 11/03/23 02/17/24 Unknown History tamsulosin 0.4 mg capsule 0.4 mg PO BID #60 caps 11/08/23 02/17/24 02/17/24 Rx minocycline 100 mg tablet 100 mg PO DAILY 10 days #10 tabs 01/19/24 02/17/24 02/17/24 Rx lubiprostone 24 mcg capsule 24 mcg PO BID #60 caps 01/23/24 02/17/24 02/17/24 Rx albuterol sulfate 2.5 mg/3 mL 2.5 mg (3 mL) inhalation QID PRN 01/30/24 02/17/24 02/13/24 Rx (0.083 %) solution for nebulization shortness of breath or wheezing #90 mL albuterol sulfate 90 mcg/actuation 1 inh inhalation QID PRN shortness 01/30/24 02/17/24 02/13/24 Rx aerosol inhaler of breath or wheezing #8.5 grams duloxetine 30 mg capsule,delayed 30 mg PO DAILY #90 caps 01/30/24 02/17/24 02/17/24 Rx release morphine 100 mg tablet,extended 100 mg PO BID pain 30 days #60 tabs 02/08/24 02/17/24 02/17/24 Rx release oxycodone 20 mg tablet 20 mg PO Q6H PRN pain 30 days #120 02/08/24 02/17/24 02/17/24 08:00 Rx tabs chlorthalidone 50 mg tablet 50 mg PO DAILY #20 tabs 02/13/24 02/17/24 02/17/24 08:00 Rx ciprofloxacin HCl 500 mg tablet 500 mg PO Q12H #14 tabs 02/14/24 02/17/24 02/17/24 08:00 Rx (Cipro) dexamethasone 6 mg tablet 6 mg PO DAILY #6 tabs 02/14/24 02/17/24 02/17/24 Rx gabapentin 600 mg tablet 600 mg PO BID 02/14/24 02/17/24 02/17/24 History ivosidenib 250 mg tablet (Tibsovo) 500 mg PO DAILY 02/14/24 02/17/24 02/17/24 History methocarbamol 500 mg tablet 1,000 mg PO Q8H PRN Spasms 02/14/24 02/17/24 02/13/24 History nirmatrelvir 150 mg-ritonavir 100 See Rx Instructions PO .COMPLEX 02/14/24 02/17/24 02/17/24 08:00 Rx mg tablets in a dose pack #20 ea (Paxlovid) omeprazole 40 mg capsule,delayed 40 mg PO DAILY 02/14/24 02/17/24 02/17/24 History release Allergies Allergy/AdvReac Type Severity Reaction Status Date / Time phenytoin [From Dilantin] Allergy Mild Rash Verified 02/13/24 14:19 Current Medications Generic Name Dose Route Start Last Admin Trade Name Freq PRN Reason Stop Dose Admin Albuterol/Ipratropium 3 ml 02/17/24 20:00 02/22/24 02:31 Ipratropium-Albuterol 3 Ml Neb INHALATION 3 ml Q6H.RESP GILMA Administration Alprazolam 0.5 mg 02/21/24 18:45 02/21/24 19:30 Alprazolam 0.5 Mg Tablet PO 0.5 mg TID PRN Administration ANXIETY Aspirin 81 mg 02/18/24 06:00 02/22/24 05:53 Aspirin 81 Mg Chew Tablet PO 81 mg QAM GILMA Administration Chlorthalidone 50 mg 02/18/24 09:00 02/21/24 13:29 Chlorthalidone 25 Mg Tablet PO 50 mg DAILY GILMA Administration Duloxetine HCl 30 mg 02/18/24 09:00 02/21/24 13:28 Duloxetine 30 Mg Capsule PO 30 mg DAILY GILMA Administration Enoxaparin Sodium 100 mg 02/21/24 15:45 02/22/24 03:39 Enoxaparin 100 Mg/Ml Syringe SUBCUT 100 mg Q12H GILMA Administration Escitalopram Oxalate 20 mg 02/18/24 09:00 02/21/24 13:28 Escitalopram 10 Mg Tablet PO 20 mg DAILY GILMA Administration Famotidine 20 mg 02/17/24 18:15 02/22/24 05:53 Famotidine 20 Mg/2 Ml Inj IVP 20 mg Q12H GILMA Administration Gabapentin 600 mg 02/19/24 09:00 02/21/24 17:59 Gabapentin 300 Mg Capsule PO 600 mg BID GILMA Administration Lisinopril 20 mg 02/21/24 18:00 02/21/24 17:59 Lisinopril 20 Mg Tablet PO 20 mg BID GILMA Administration Meloxicam 15 mg 02/18/24 09:00 02/21/24 13:29 Meloxicam 7.5 Mg Tablet PO 15 mg DAILY GILMA Administration Metoprolol Tartrate 12.5 mg 02/18/24 09:00 02/21/24 17:58 Metoprolol Tartrate 25 Mg Tablet PO 12.5 mg BID GILMA Administration Morphine Sulfate 100 mg 02/18/24 20:00 02/21/24 17:56 Morphine Er (12 Hr) 100 Mg Tablet PO 100 mg BID GILMA Administration Non-Formulary Medication 500 mg 02/19/24 13:15 02/21/24 13:30 Ivosidenib [Tibsovo] PO 500 mg DAILY GILMA Administration Ondansetron HCl 4 mg 02/17/24 18:06 02/19/24 08:34 Ondansetron 2 Mg/Ml Sdv 2 Ml IVP 4 mg Q8H PRN Administration vomiting, or N/V if npo Ondansetron HCl 4 mg 02/21/24 06:04 02/21/24 12:37 Ondansetron 2 Mg/Ml Sdv 2 Ml IVP 4 mg Q2M PRN Administration NAUSEA Oxycodone HCl 10 mg 02/21/24 18:36 02/22/24 05:56 Oxycodone 10 Mg Er (12 Hr) Tablet PO 10 mg Q6H PRN Administration pain PFSH Acute PFSH: Medical History REINA (acute kidney injury) Oxygen dependent COPD (chronic obstructive pulmonary disease) Depression Heart failure with preserved ejection fraction YOLY on CPAP Anxiety and depression CAD (coronary artery disease) Complete rotator cuff tear of left shoulder Primary osteoarthritis, left shoulder Chronic wound infection of abdomen Weakness of left shoulder Cancer related pain Nausea and vomiting Pneumonia Essential hypertension Degenerative arthritis Chronic pain of right knee Chronic narcotic use History of nonmelanoma skin cancer 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 Bean Family History Mother Family history of premature coronary artery disease Hypertension Brother Cancer Hypertension Sister Cancer Father Family history of premature coronary artery disease Hypertension Denies family history of Diabetes CAD (coronary artery disease) Clotting disorder Dementia Hyperlipidemia Psychiatric illness Chronic kidney disease (CKD) Suicide Anesthesia complication Bleeding disorder Lung disease Stroke Social History Smoking and tobacco/nicotine status: former use of tobacco/nicotine Quit status (tobacco/nicotine): has quit using Year quit tobacco: 2016 Former quit date comment: 2ppd x 36 years Second hand smoke exposure: No Alcohol intake: never Substance/Drug Use: never Adopted: No Caregiver/support person: Yes Lives independently: Yes Marital status: Single Current occupational status: employed 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 [] NECK: No jugular vein distension. [] HEENT: No cyanosis. No icterus. No pallor. [] HEART: Regular S1 and S2. No murmur, rub or gallop. [] LUNGS: Clear to auscultate bilaterally. [] CENTRAL NERVOUS SYSTEM: Grossly nonfocal. [] EXTREMITIES: Lower extremities with 1+ edema bilaterally. Urinary Catheter Management: Stewart: Cath Placed During This Visit: yes Reason for Continuing Indwelling Catheter: Chronic Indwelling Urinary Catheter on Admission Urinary Catheter Date of Insertion: 02/21/24 Urinary Catheter Time of Insertion: 15:30 Data 02/21/24 05:34 02/21/24 05:34 A&P Assessment and plan (1) Heart failure with preserved ejection fraction: (2) Elevated troponin: (3) Abnormal stress test: Plan Patient had significant troponin elevation however did not trend up. Stress test is abnormal. Given shortness of breath and weakness episodes, we will proceed with coronary angiogram with possible PCI. Risk and benefits of procedure were discussed. N.p.o. for now. Thank you for involving us with care of this patient. Please call with questions Consult Attestations Medical Necessity Statement: Care expected to cross 2 midnights. Coding Level of Care Code Acute Code for g Fwd Diagnoses Heart failure with preserved ejection fraction I50.30 Elevated troponin R79.89 Abnormal stress test R94.39
[2024-02-22] MEDS: IVOSIDENIB 500 EACH PO (08:22)
[2024-02-22] MEDS: metoprolol tartrate 25 mg Tablet 12.5 MG PO ×2 (08:23→17:17)
[2024-02-22] MEDS: chlorthalidone 25 mg Tablet 50 MG PO (08:24)
[2024-02-22] MEDS: morphine ER (12 HR) 100 mg Tablet PO ×2 (08:24→17:16)
[2024-02-22] MEDS: gabapentin 300 mg Capsule 600 MG PO ×2 (08:24→17:16)
[2024-02-22] MEDS: duloxetine 30 mg Capsule PO (08:24)
[2024-02-22] MEDS: lisinopril 20 mg Tablet PO ×2 (08:24→17:17)
[2024-02-22] MEDS: escitalopram 10 mg Tablet 20 MG PO (08:25)
--- NOTE | 2024-02-22 08:28 | XACV_ITS ---
Exam Room: 2 Ht: 160 cm Wt: 102 kg BSA: 2.18 m2 Gender: Female : 1955 Any Known Allergies: Other Exam Priority: Routine Procedure(s): Procedure Description: Diagnostic procedure Procedure Description: Left Heart Catheterization Procedure Description: Left ventriculography Procedure Description: Miscellaneous Procedure Description: Angio-Seal Procedure Description: Coronary Angiography Diagnostic Cath Status: Elective Diagnostic Findings * INDICATION: Troponin elevation/abnormal stress test. * No significant disease noted in the Left Main, Left Anterior Descending, Right, or Circumflex coronary arteries. * Coronary angiography shows right dominance. Conclusions 1. No significant disease noted in the Left Main, Left Anterior Descending, Right, or Circumflex coronary arteries. 2. Normal left ventricular systolic function. Ejection fraction of 50%. Recommendations * Aggressive medical therapy for coronary artery disease. * Outpatient cardiology follow up. Interventional RX Recommendation: medical therapy and/or counseling Diagnostic RX Recommendation: medical therapy and/or counseling Ventriculography Ejection Fraction: 50.0 % Pressures Phase:Rest AO : 163 / 80 ( 110 ) @ 11:23:00 AM 138 / 90 ( 113 ) @ 11:37:00 AM 123 / 83 ( 102 ) @ 11:41:00 AM 167 / 66 ( 105 ) @ 11:45:00 AM 167 / 67 ( 104 ) @ 11:45:00 AM LV : 163 / -3 / 13 @ 11:44:00 AM 170 / 0 / 27 @ 11:45:00 AM 169 / 0 / 26 @ 11:45:00 AM Valves Phase:DefaultPhase AV : 0.0 @ 10:56:41 AM AV Mean Gradient: 0.0 @ 10:56:41 AM Clinical Evaluation EBL: 5mL-10mL Procedural Details Procedure Consent Obtained. Current Diagnosis : Chest Pain. Pre-Procedure Time Out. Identified patient by full name and date of as verbalized by the patient/guarantor. Does the consent match the physician's order: Yes. Accurate & Complete Informed Consent: Yes. Inpatient/Outpatient History & Physical on Chart: Yes. If H&P is completed, is and addenduem needed: No; If yes, is the addendum complete: N/A. Visualize and Verify Site with Patient/Guarantor: N/A. Relevant Radiology Images available: Yes. Pre-op teaching completed and patient verbalized understanding. The risks, benefits, and alternatives of sedation and/or procedure were discussed by physician. The patient agrees to continue. Procedure started. [facility] Clinical Fraility Score: 6: Moderately Frail. Cushion Installer Indications: Other. Chest Pain Symptom Assessment: Atypical Angina. Correct patient, site and procedure confirmed by cath team. Current diagnosis: Chest Pain. PERRLA. Strong, equal hand cement rubber bilaterally. Lungs clear x 5 lobes. IV Fluids: 0.9% NaCl at KVO. 0 mL infused prior to label printer. Oxygen started at 2liters/min via nasal canula. right groin was prepped with chloroprep then draped in the usual sterile fashion. right radial was prepped with chloroprep then draped in the usual sterile fashion. Baseline sample Acquired. HR: 89 BPM. Physician arrived. Physician scrubbed in. Immediate Pre-Procedure Time Out. Correct Patient: Yes; Correct Procedure: Yes; Correct Site: Yes; Correct Patient Position: Yes; Correct Supplies: Yes; Dried Flammable Prep: Yes; Blood Products Available: N/A;. IV Site on Arrival: 22 gauge in the right wrist. Lidocaine 1% infiltrated to the right radial. Arterial access obtained. A 5 mauritanian TIG catheter in over wire. Catheter removed over the exchange wire. A TR Band was successful obtaining hemostatsis at the Right Radial artery insertion site. Lidocaine 1% infiltrated to the left groin. Ultrasound being used to obtain access. Arterial access obtained with micropuncture set. Lidocaine 1% infiltrated to the left groin. A 5 mauritanian JL4 catheter in over wire. Multiple views taken of left coronary artery. Catheter removed over the standard wire. A 5 mauritanian JR4 catheter in over wire. Multiple views taken of right coronary artery. Catheter removed over the standard wire. A 5 mauritanian Angled Pig catheter in over wire. EDP Sample taken: LV 163/-4,13; HR: 84 BPM; SpO2: 93%. LV gram performed in BUENROSTRO @ 10 mL/second for a total of 30 mL. EDP Sample taken: LV 170/0,27; HR: 82 BPM; SpO2: 100%. Pullback taken: LV 169/0,26; AO 167/66(105); Mean: 0mmHg, Peak to Peak: 0mmHg, SEP: 25sec/min; HR: 82 BPM; SpO2: 100%. Catheter removed over the standard wire. A Right femoral angiogram was performed to determine safe placement of closure device. Lidocaine 1% infiltrated to the left groin. A Angio-Seal VIP ([place]) was successful obtaining hemostatsis at the Left Femoral artery insertion site. Post Procedure: Pulses reassessed and unchanged. PERRLA. Strong, equal hand cement rubber bilaterally. No VTE prophylaxis required. Medication's Wasted: Lidocaine 1% = 10 mL. Medication's Wasted: Nitro = 49.8 mcg. Medication's Wasted: Heparin = 1000 units. Total IV fluids: 61 mL. Complications: None. Estimated blood loss: 5mL-10mL. Responsiveness - Normal response to verbal stimuli; alert and oriented, PERRLA. Airway - Unaffected, no intervention required; spontaneous ventilation. Circulation: W/N/L, pulses unchanged. Nausea/Vomiting: No. Procedure completed. Patient transferred by bed to 1st floor. Vital chart was stopped. Access Site Site: Right Radial artery Sheath Size: 6 Fr Hemostasis Method: TR Band Hemostasis Success: Successful Site: Left Femoral artery Sheath Size: 6 Fr Hemostasis Method: Angio-Seal VIP ([place]) Hemostasis Success: Successful Procedure Medications Start: 10:11 AM Stop: 10:11 AM Medication: Versed Amount: 1 mg Route: I.V. Start: 10:17 AM Stop: 10:17 AM Medication: Fentanyl Amount: 50 mcg Route: I.V. Start: 10:20 AM Stop: 10:20 AM Medication: Nitrogylcerin Amount: 200 mcg Route: I.A. Start: 10:20 AM Stop: 10:20 AM Medication: Versed Amount: 1 mg Route: I.V. Start: 10:51 AM Stop: 10:51 AM Medication: Fentanyl Amount: 50 mcg Route: I.V. I, the attending physician, have reviewed and verified all procedure medications. Yes, all medications given per verbal order History/Risk Factors Hypertension: Yes Dyslipidemia: No Peripheral Arterial Disease (PAD): No Myocardial Infarction ([place]): No Obesity: No Renal Disease: No Tobacco Use: Former Prior Interventions PCI: No CABG: No Valve Surgery: No Report Signatures Finalized by Pawan Staton MD on 02/25/2024 06:59 PM
[2024-02-22] MEDS: clopidogrel 75 mg Tablet PO (08:29)
[2024-02-22] MEDS: meloxicam 7.5 mg tablet 15 MG PO (08:30)
--- NOTE | 2024-02-22 10:14 | W.PM.OPSUD ---
Surgery/Procedure H&P Update DATE OF PROCEDURE: February 22, 2024 DATE H&P PERFORMED: 02/22/24 H&P UPDATE INFORMATION: I have reviewed H&P completed within last 30 days, I have examined patient prior to procedure and No changes to prior documentation PREOP DIAGNOSIS: Troponin elevation/abnormal stress test PRIMARY INDICATION FOR PROCEDURE: Troponin elevation/abnormal stress test PLANNED PROCEDURE: Left heart cath with possible percutaneous coronary intervention PATIENT REASSESSED PRIOR TO SEDATION, WITH NO CHANGE NOTED: Yes PHYSICAL EXAM: alert, oriented x 3, clear to auscultation bilaterally and regular rate & rhythm AIRWAY EVAL/ANESTHESIA PLAN: normal airway, ASA III, Local Anesthesia, Risks, benefits & alternatives of sedation and/or procedure discussed and Patient agrees to continue as planned ADDITIONAL INFORMATION: Moderate sedation
--- NOTE | 2024-02-22 13:15 | PM.PN ---
Subjective Subjective: Nondiagnostic angiogram, femoral sheath in place, Spoke with the daughter, plan is to find rehab for Ms. Funes, she is extremely weak and lethargic She also slid out of bed to her knees yesterday Did not hit her head Not requiring oxygen the daytime Pain well-managed at current opioid regimen Vitals/I&O/Wt Last Vital Signs Temp 98.2 F 02/22/24 08:00 Pulse 78 02/22/24 12:00 Resp 19 H 02/22/24 12:00 BP 147/71 02/22/24 11:13 Pulse Ox 90 02/22/24 12:00 O2 Del Method Nasal Cannula 02/22/24 08:06 O2 Flow Rate 1 02/22/24 08:06 02/21/24 02/22/24 02/22/24 22:59 06:59 14:59 Intake Total 700 / 700 0 / 700 Output Total 2550 / 3500 300 / 3800 Balance -1850 / -2800 -300 / -3100 Weight last 48 hrs Weight 101.786 kg Weight 104.411 kg Physical Exam Narrative: Awake and alert GCS 15 No audible stridor or wheezing On room air Pleasant cooperative No active chest pain Daughter at the bedside GCS 15 Urinary Catheter Management: Stewart: Cath Placed During This Visit: yes Reason for Continuing Indwelling Catheter: Chronic Indwelling Urinary Catheter on Admission Urinary Catheter Date of Insertion: 02/21/24 Urinary Catheter Time of Insertion: 15:30 Data 02/21/24 05:34 02/21/24 05:34 A&P Assessment and plan (1) Hypertension: Qualifiers: Hypertension type: primary hypertension Qualified Code(s): I10 - Essential (primary) hypertension (2) Elevated troponin: (3) Viral upper respiratory tract infection with cough: (4) Chronic indwelling Stewart catheter: (5) COVID-19: (6) COPD (chronic obstructive pulmonary disease): (7) Lower extremity edema: (8) Weakness: Plan COVID-19 pneumonia Not requiring oxygen in the daytime Isolation has been discontinued Only requires 2 L at nighttime, 02/21 diagnostic angiogram: No stents were placed Hypertension: Blood pressure improved with increased dose of lisinopril Full code Patient needing [place] [facility] for generalized weakness and fatigue Cardiac diet Can be transferred out of ICU to [facility] once sheath has been removed which could happen later in the night Attestations Medical Necessity Statement*: Discharged before Tuesday Diagnoses Primary hypertension I10 Hypertension type: primary hypertension Elevated troponin R79.89 Viral upper respiratory tract infection with cough J06.9 Chronic indwelling Stewart catheter Z97.8 COVID-19 U07.1 Chronic obstructive pulmonary disease, unspecified COPD type J44.9 Lower extremity edema R60.0 Weakness R53.1
[2024-02-22 23:12] LABS: Glucose Point of Care 140 mg/dL (70-110)
[2024-02-23] VITALS (29 sets, daily range): BP systolic 85–175; BP diastolic 42–127; PULSE 73–99; RESP 13–28; TEMP 36.8–36.9; O2SAT 90–96; BMI 38.6
[2024-02-23] MEDS: ipratropium-albuterol 3 mL Neb INHALATION ×2 (02:39→07:55)
[2024-02-23] MEDS: enoxaparin 100 mg/mL Syringe SUBCUT (03:32)
[2024-02-23] MEDS: oxyCODONE 10 mg ER (12 HR) Tablet PO ×2 (03:33→14:14)
[2024-02-23 05:48] LABS: Basophils % 0.4 %; Eosinophils # 0.2 10^3/uL (0.0-0.8); Eosinophils % 3.6 %; Hematocrit 32.4 % (36-47); Lymphocytes # 1.2 10^3/uL (0.8-4.8); Lymphocytes % 26.4 %; Mean Corpuscular HGB Conc 30.2 g/dL (30-55); Mean Corpuscular Hemoglobin 30.2 pg (27-33); Mean Corpuscular Volume 99.7 fl (85-98); Mean Platelet Volume 9.9 fL (7.4-10.4); Monocytes # 0.5 10^3/uL (0.2-0.9); Monocytes % 11.1 %; Neutrophils % 57.6 %; Nucleated Red Blood Cells % 0 %; Platelet Count 219 10^3/cmm (157-399); Red Blood Count 3.25 10^6/uL (3.85-5.65); Red Cell Distribution Width 17.3 % (12.1-15.1); White Blood Count 4.69 10^3/uL (3.29-11.43)
[2024-02-23] MEDS: famotidine 20 mg/2 mL INJ IVP (05:55)
[2024-02-23] MEDS: aspirin 81 mg Chew Tablet PO (06:05)
[2024-02-23 06:09] LABS: Anion Gap 13.7 (5-19); Blood Urea Nitrogen 11 mg/dL (8-23); Calcium 8.1 mg/dL (8.5-10.5); Carbon Dioxide 29 mmol/L (22-29); Chloride 103 mmol/L (98-107); Creatinine Clr Calc Pharmacy 77.7288; Glomerular Filtration Rate 71.5 mL/min (90-130); Glucose 130 mg/dL (65-115); Osmolality Calculated 295 mOsm/kg (285-295); Potassium 3.7 mmol/L (3.5-5.1); Sodium 142 mmol/L (136-145)
--- NOTE | 2024-02-23 07:03 | PM.PN ---
Subjective Subjective: Patient is doing well. no chest pain. Vitals/I&O/Wt Last Vital Signs Temp 98.2 F 02/23/24 06:00 Pulse 75 02/23/24 06:00 Resp 16 02/23/24 06:00 BP 106/42 02/23/24 06:00 Pulse Ox 91 02/23/24 06:00 O2 Del Method Nasal Cannula 02/23/24 06:00 O2 Flow Rate 2 02/23/24 06:00 02/22/24 02/23/24 02/23/24 22:59 06:59 14:59 Intake Total 1008 / 1008 702 / 1710 Output Total 1150 / 1150 1425 / 2575 Balance -142 / -142 -723 / -865 Weight last 48 hrs Weight 218 lb 4.122 oz Weight 224 lb 6.4 oz Physical Exam Narrative: GENERAL: Patient is alert, awake and oriented x3. [] NECK: No jugular vein distension. [] HEENT: No cyanosis. No icterus. No pallor. [] HEART: Regular S1 and S2. No murmur, rub or gallop. [] LUNGS: Clear to auscultate bilaterally. [] CENTRAL NERVOUS SYSTEM: Grossly nonfocal. [] EXTREMITIES: Lower extremities with 1+ edema bilaterally. Urinary Catheter Management: Stewart: Cath Placed During This Visit: yes Reason for Continuing Indwelling Catheter: Accurate Measurement of Urinary Output in Critically Ill Patients Urinary Catheter Date of Insertion: 02/21/24 Urinary Catheter Time of Insertion: 15:30 Data 02/23/24 04:08 02/23/24 04:08 Micro: Microbiology 02/17/24 14:40 Blood Culture - Final Blood NO GROWTH AFTER 5 DAYS 02/17/24 14:30 Blood Culture - Final Blood NO GROWTH AFTER 5 DAYS A&P Assessment and plan (1) Heart failure with preserved ejection fraction: (2) Elevated troponin: (3) Abnormal stress test: Plan No significant CAD seen on coronary angiogram. Medical therapy. Thank you for involving us with care of this patient. Please call with questions Attestations Medical Necessity Statement*: Care expected to cross 2 midnights. Coding Level of Care Code Acute Code for [facility] Fwd Diagnoses Heart failure with preserved ejection fraction I50.30 Elevated troponin R79.89 Abnormal stress test R94.39
[2024-02-23] MEDS: chlorthalidone 25 mg Tablet 50 MG PO (09:04)
[2024-02-23] MEDS: clopidogrel 75 mg Tablet PO (09:04)
[2024-02-23] MEDS: duloxetine 30 mg Capsule PO (09:04)
[2024-02-23] MEDS: lisinopril 20 mg Tablet PO (09:04)
[2024-02-23] MEDS: gabapentin 300 mg Capsule 600 MG PO (09:04)
[2024-02-23] MEDS: meloxicam 7.5 mg tablet 15 MG PO (09:05)
[2024-02-23] MEDS: morphine ER (12 HR) 100 mg Tablet PO (09:05)
[2024-02-23] MEDS: IVOSIDENIB 500 EACH PO (09:05)
[2024-02-23] MEDS: metoprolol tartrate 25 mg Tablet 12.5 MG PO (09:06)
[2024-02-23] MEDS: escitalopram 10 mg Tablet 20 MG PO (09:06)
--- NOTE | 2024-02-23 09:59 | P.DS_ITS ---
Discharge Providers Date of Admission: 02/17/24 17:55 Date of Discharge: February 23, 2024 Attending Provider at Admission: Jesenia Rider MD Attending Provider at Discharge: Agustin Hernandez MD Primary Care Provider: Cyril Ramsey MD Diagnoses at Discharge Discharge Diagnosis (1) Hypertension: Status: Chronic Qualifiers: Hypertension type: primary hypertension Qualified Code(s): I10 - Essential (primary) hypertension (2) Elevated troponin: Status: Acute (3) Viral upper respiratory tract infection with cough: Status: Acute (4) Chronic indwelling Stewart catheter: Status: Acute (5) COVID-19: Status: Acute (6) COPD (chronic obstructive pulmonary disease): Status: Acute (7) Lower extremity edema: Status: Acute (8) Weakness: Status: Acute Reason for Visit Reason for Visit: fall, ams Hospital Course Hospital Course Dennise Funes is a 68 year old female with Hx of metastatic undifferentiated pleomorphic sarcoma, mets to lungs, s/p tumor debulking and removal occurred. 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 She was found to be hypoxic and not wearing her oxygen, was found facedown on the floor. During hospitalization patient did remarkably well, we were able to wean her off oxygen during the daytime to room air she will requiring 2 L of oxygen at nighttime, remained afebrile, received antibiotics for UTI, her Stewart catheter was exchanged during this hospitalization, there is plan for suprapubic catheter by Dr. Jo at [facility] for her neurogenic bladder, please note, during hospitalization cardiology was consulted for her positive stress test, patient main chest pain-free, she has significant elevation of troponin, patient went for coronary angiogram on 02/21, coronary angiogram was unremarkable. No stents were placed. Femoral sheath was removed without any complications. For high D-dimer CT chest was done which did not show any sign of PE., Venous Doppler rule out DVT, high D-dimer like related to underlying COVID-19 infection. Patient has been accepted at half-way, I will discharge her with addition of lisinopril for optimization of antihypertensive regimen and add ciprofloxacin for UTI. She may resume her opioids along bowel regimen. Physical Exam Narrative: Requiring 2 L of oxygen Pleasant cooperative GCS 15 Awake and alert Nonfocal neuroexam Urinary Catheter Management: Stewart: Cath Placed During This Visit: yes Reason for Continuing Indwelling Catheter: Accurate Measurement of Urinary Output in Critically Ill Patients Urinary Catheter Date of Insertion: 02/21/24 Urinary Catheter Time of Insertion: 15:30 Discharge Data Studies Completed and Pending Completed Studies During Hospitalization Category Date Time Status CT head wo con* [id number] Stat Cat Scan 02/17/24 14:11 Completed CTA chest [CT angio chest PE protcl [id number]] Stat Cat Scan 02/19/24 12:00 Completed Sestamibi Stress Test Request Routine Exams 02/20/24 11:53 Draft XR chest 1V portable [id number] Stat Exams 02/17/24 14:11 Completed XR hip RT 2-3V wo/w pel* [id number] Stat Exams 02/17/24 14:11 Completed NM ines perf SPECT r/s* [id number] Routine Nuc Med 02/21/24 11:53 Completed CV. 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 No acute finding. 2. Right-sided central line appears to end in the RIGHT atrium. Head CT 02/17/24 14:11 IMPRESSION: No acute intracranial abnormality. Hip/Pelvis X-Ray 02/17/24 14:11 IMPRESSION: 1. Intact RIGHT total hip arthroplasty. Chest CTA 02/19/24 12:00 IMPRESSION: 1. No evidence of a pulmonary embolism. 2. Small bilateral pleural effusions. 3. Nodular masslike band within the lingula measuring approximately 2 cm, increased from prior comparison. It is unclear whether this represents incidental scarring or possible spiculated mass which has increased from prior. There is also mediastinal lymphadenopathy which is grossly unchanged from prior. PET-CT may help clarify if clinically warranted. 4. Unchanged masslike enlargement of both adrenal glands from prior. 5. Other chronic findings as above. Laboratory Results WBC 4.69 10^3/uL (3.29-11.43) 02/23/24 04:08 RBC 3.25 10^6/uL (3.85-5.65) L 02/23/24 04:08 Hgb 9.80 g/dL (11.27-16.99) L 02/23/24 04:08 Hct 32.4 % (36-47) L 02/23/24 04:08 MCV 99.7 fl (85-98) H 02/23/24 04:08 MCH 30.2 pg (27-33) 02/23/24 04:08 MCHC 30.2 g/dL (30-55) 02/23/24 04:08 RDW 17.3 % (12.1-15.1) H 02/23/24 04:08 Plt Count 219 10^3/cmm (157-399) 02/23/24 04:08 MPV 9.9 fL (7.4-10.4) 02/23/24 04:08 Neut % (Auto) 57.6 % 02/23/24 04:08 Lymph % (Auto) 26.4 % 02/23/24 04:08 Rhea % (Auto) 11.1 % 02/23/24 04:08 Eos % (Auto) 3.6 % 02/23/24 04:08 Baso % (Auto) 0.4 % 02/23/24 04:08 Neut # (Auto) 2.70 10^3/uL (1.8-7.7) 02/23/24 04:08 Lymph # (Auto) 1.2 10^3/uL (0.8-4.8) 02/23/24 04:08 Rhea # (Auto) 0.5 10^3/uL (0.2-0.9) 02/23/24 04:08 Eos # (Auto) 0.2 10^3/uL (0.0-0.8) 02/23/24 04:08 Baso # (Auto) 0.0 10^3/uL (0.0-0.1) 02/23/24 04:08 Nucleated RBC % (auto) 0 % 02/23/24 04:08 Nucleated RBCs # 0.0 /100WBC 02/23/24 04:08 Sodium 142 mmol/L (136-145) 02/23/24 04:08 Potassium 3.7 mmol/L (3.5-5.1) 02/23/24 04:08 Chloride 103 mmol/L (98-107) 02/23/24 04:08 Carbon Dioxide 29 mmol/L (22-29) 02/23/24 04:08 Anion Gap 13.7 (5-19) 02/23/24 04:08 BUN 11 mg/dL (8-23) 02/23/24 04:08 Creatinine 0.8 mg/dL (0.5-0.9) 02/23/24 04:08 GFR Calculation 71.5 mL/min (90-130) L 02/23/24 04:08 Glucose 130 mg/dL (65-115) H 02/23/24 04:08 POC Glucose 140 mg/dL (70-110) H 02/22/24 23:08 Calculated Osmolality 295 mOsm/kg (285-295) 02/23/24 04:08 Lactic Acid 0.7 mmol/L (0.5-2.2) 02/18/24 03:36 Calcium 8.1 mg/dL (8.5-10.5) L 02/23/24 04:08 Magnesium 1.8 mg/dL (1.7-2.3) 02/20/24 05:10 Total Bilirubin 0.4 mg/dL (0.15-1.2) 02/20/24 05:10 AST 51 U/L (0-32) H 02/20/24 05:10 ALT 221 U/L (0-33) H 02/20/24 05:10 Alkaline Phosphatase 128 U/L (35-105) H 02/20/24 05:10 Creatine Kinase 480 U/L (26-192) H* 02/17/24 14:30 Troponin T Baseline 113 ng/L (0-10) H* 02/17/24 14:30 Troponin T 120 Minute 105.9 ng/L (0-10) H 02/17/24 16:29 Delta Troponin T -7.1 ABS# (0-10) L 02/17/24 16:29 Troponin T Hi Sens 6Hr 106.6 ng/L (0-10) H 02/17/24 20:07 Troponin T Hi Sens 6Hr Delta -6.4 ng/L (0-12) L 02/17/24 20:07 NT-Pro-B Natriuret Pep 3979 pg/mL (0-125) H 02/18/24 03:36 Total Protein 5.6 g/dL (6.6-8.7) L 02/20/24 05:10 Albumin 3.0 g/dL (3.5-5.2) L 02/20/24 05:10 Globulin 2.6 g/dL (1.3-4.6) 02/20/24 05:10 Procalcitonin 0.16 ng/mL (0-0.5) 02/18/24 03:36 Urine Color Yellow (Yellow) 02/17/24 15:23 Urine Appearance Cloudy (CLEAR) A 02/17/24 15:23 Urine pH 7.5 (5-7) 02/17/24 15:23 Ur Specific [place] 1.015 (1.005-1.030) 02/17/24 15:23 Urine Protein 1+ (Negative) A 02/17/24 15:23 Urine Glucose (UA) Negative (Normal) 02/17/24 15:23 Urine Ketones Negative (Negative) 02/17/24 15:23 Urine Blood 2+ (Negative) A 02/17/24 15:23 Urine Nitrate Positive (Negative) A 02/17/24 15: Urine Bilirubin Negative (Negative) 02/17/24 15:23 Urine Urobilinogen 1.0 mg/dL (Negative) 02/17/24 15:23 Ur Leukocyte Esterase 2+ (Negative) A 02/17/24 15:23 Urine RBC 6-10 /hpf (0-2) 02/17/24 15:23 Urine WBC 21-50 /hpf (0-5) H 02/17/24 15:23 Ur Squamous Epith Cells 6-10 /hpf (0-5) 02/17/24 15:23 Calcium Oxalate Crystal 1 /hpf 02/17/24 15:23 Amorphous Sediment Trace /hpf 02/17/24 15:23 Urine Bacteria 4+ /hpf (NONE) H 02/17/24 15:23 Hyaline Casts 93.90 /lpf 02/17/24 15:23 Fine Granular Casts 0-4 /lpf H 02/17/24 15:23 Coarse Granular Casts 5-10 /lpf H 02/17/24 15:23 Urine Yeast Trace /hpf 02/17/24 15:23 Vitals Last Vital Signs Temp 98.2 F 02/23/24 06:00 Pulse 79 02/23/24 08:30 Resp 14 02/23/24 08:30 BP 115/45 02/23/24 08:30 Pulse Ox 90 02/23/24 08:30 O2 Del Method Nasal Cannula 02/23/24 07:55 O2 Flow Rate 2 02/23/24 07:55 Discharge Plan Discharge Patient Disposition: Xfer SNF Condition: Stable Prescriptions: New albuterol sulfate 90 mcg/actuation HFA aerosol inhaler 2 inh inhalation Q8H PRN (Reason: shortness of breath or wheezing) Qty: 6.7 0RF lisinopril 20 mg Tablet 20 mg PO DAILY Qty: 30 0RF sennosides-docusate sodium [Senna-Time S] 8.6-50 mg tablet 1 tab-cap PO DAILY Qty: 30 0RF Continued tamsulosin 0.4 mg capsule 0.4 mg PO BID Qty: 60 3RF minocycline 100 mg tablet 100 mg PO DAILY 10 Days Qty: 10 0RF acetaminophen 325 mg capsule 1,300 mg PO BID PRN (Reason: Pain) escitalopram oxalate 20 mg tablet 20 mg PO DAILY Qty: 90 1RF albuterol sulfate 2.5 mg /3 mL (0.083 %) solution for nebulization 2.5 mg inhalation QID PRN (Reason: shortness of breath or wheezing) Qty: 90 2RF albuterol sulfate 90 mcg/actuation HFA aerosol inhaler 1 inh inhalation QID PRN (Reason: shortness of breath or wheezing) Qty: 8.5 1RF chlorthalidone 50 mg tablet 50 mg PO DAILY Qty: 20 0RF (DME) Compression Supporting Hose See Rx Instructions .Route .MEDSUPPLY Qty: 1 0RF Rx Instructions: As directed lubiprostone 24 mcg capsule 24 mcg PO BID Qty: 60 0RF duloxetine 30 mg capsule,delayed release(DR/EC) 30 mg PO DAILY Qty: 90 1RF morphine 100 mg tablet extended release 100 mg PO BID 30 Days Qty: 60 0RF oxycodone 20 mg tablet 20 mg PO Q6H PRN (Reason: pain) 30 Days Qty: 120 0RF nitroglycerin [Nitrostat] 0.4 mg Tablet, Sublingual 0.4 mg SUBLINGUAL Q5M PRN (Reason: Chest Pain) Rx Instructions: do not exceed 3 doses per episode cyanocobalamin (vitamin B-12) [Vitamin B-12] 500 mcg Tablet 500 mcg PO DAILY aspirin 81 mg Tablet,Chewable 81 mg PO QAM lidocaine 5 % ointment 1 applic topical DAILY PRN (Reason: Pain) metoprolol tartrate 25 mg tablet 12.5 mg PO BID ondansetron 4 mg tablet,disintegrating 4 mg PO Q6H PRN (Reason: nausea and vomiting) Qty: 14 0RF methocarbamol 500 mg tablet 1,000 mg PO Q8H PRN (Reason: Spasms) gabapentin 600 mg tablet 600 mg PO BID omeprazole 40 mg capsule,delayed release(DR/EC) 40 mg PO DAILY Tibsovo 250 mg tablet 500 mg PO DAILY ciprofloxacin HCl [Cipro] 500 mg tablet 500 mg PO Q12H Qty: 14 0RF Discontinued meloxicam 15 mg tablet 15 mg PO DAILY Qty: 90 1RF Paxlovid 150-100 mg tablets,dose pack See Rx Instructions .ROUTE .COMPLEX Qty: 20 0RF Rx Instructions: take ONE 150 mg tablet of nirmatrelvir with ONE 100 mg tablet of ritonavir twice daily for 5 days dexamethasone 6 mg tablet 6 mg PO DAILY Qty: 6 0RF Discharge Orders: Discharge Order (Routine); Ordered 02/23/24 Ordered By: Agustin Hernandez Referrals: [facility] [Outside] Cyril Ramsey MD [Primary Care Provider] - Discharge Diet: Cardiac Discharge Activity: Increase activity as tolerated Patient Instructions: Altered Mental Status (ED), Opioid Safety Discharge Attestations Time Spent in Discharge Care*: greater than 30 min Quality Metrics Clinical Quality Measures [ No reported AMI, CVA or VTE this stay] Coding Level of Care Code Acute Code for Chg Fwd Diagnoses Primary hypertension I10 Hypertension type: primary hypertension Elevated troponin R79.89 Viral upper respiratory tract infection with cough J06.9 Chronic indwelling Stewart catheter Z97.8 COVID-19 U07.1 Chronic obstructive pulmonary disease, unspecified COPD type J44.9 Lower extremity edema R60.0 Weakness R53.1
[2024-02-23] MEDS: ALPRAZolam 0.5 mg Tablet PO (11:32)
--- NOTE | 2024-02-23 11:33 | PC.NURSE ---
preparing for transfer to [facility] pt related anxious and xanax given
--- NOTE | 2024-02-23 12:35 | PC.NURSE ---
report called to [facility]
--- NOTE | 2024-02-23 16:50 | PC.NURSE ---
home meds for chemo sent with pt along with phone ,fashion buying internship
== END 2024-02-23 16:35 | disposition skilled nursing facility (03) | DRG 177 ==
LOC: ER 17:19 → ER IP 17:59 → ICU 18:44 → MEDSURG 02-18 14:40 → ICU 02-22 11:10
PROVIDERS: Internal Medicine; Admitting Provider Internal Medicine; Emergency Provider Student in an Organized Health Care Education/Training Program; PCP Family Medicine; Visit Provider Internal Medicine
PROC: B2111ZZ Fluoroscopy of Multiple Coronary Arteries using Low Osmolar Contrast (ICD-10-PCS; principal; 2024-02-22 11:00)
DX: U07.1 COVID-19 (principal); G93.41 Metabolic encephalopathy; J12.82 Pneumonia due to coronavirus disease 2019; T83.511A Infection and inflammatory reaction due to indwelling urethral catheter, initial encounter; C49.21 Malignant neoplasm of connective and soft tissue of right lower limb, including hip; C78.02 Secondary malignant neoplasm of left lung; C78.01 Secondary malignant neoplasm of right lung; I50.30 Unspecified diastolic (congestive) heart failure; N17.9 Acute kidney failure, unspecified; I11.0 Hypertensive heart disease with heart failure; G47.33 Obstructive sleep apnea (adult) (pediatric); Z87.891 Personal history of nicotine dependence; J44.9 Chronic obstructive pulmonary disease, unspecified; K21.9 Gastro-esophageal reflux disease without esophagitis; Z99.81 Dependence on supplemental oxygen; Y73.8 Miscellaneous gastroenterology and urology devices associated with adverse incidents, not elsewhere classified; Z79.82 Long term (current) use of aspirin; Z79.69 Long term (current) use of other immunomodulators and immunosuppressants; I25.10 Atherosclerotic heart disease of native coronary artery without angina pectoris; G89.3 Neoplasm related pain (acute) (chronic); Z87.01 Personal history of pneumonia (recurrent); M19.90 Unspecified osteoarthritis, unspecified site; Z79.51 Long term (current) use of inhaled steroids; W18.30XA Fall on same level, unspecified, initial encounter; Y92.230 Patient room in hospital as the place of occurrence of the external cause; Z79.891 Long term (current) use of opiate analgesic; N31.9 Neuromuscular dysfunction of bladder, unspecified; R94.39 Abnormal result of other cardiovascular function study; R79.89 Other specified abnormal findings of blood chemistry; R60.0 Localized edema; R74.8 Abnormal levels of other serum enzymes; E66.01 Morbid (severe) obesity due to excess calories; Z68.38 Body mass index [BMI] 38.0-38.9, adult; F32.A Depression, unspecified; Z96.643 Presence of artificial hip joint, bilateral; Z85.828 Personal history of other malignant neoplasm of skin; Z95.828 Presence of other vascular implants and grafts; R09.02 Hypoxemia; F41.9 Anxiety disorder, unspecified; D69.6 Thrombocytopenia, unspecified; E86.0 Dehydration
CPT/HCPCS: 0241U; 36415; 36416; 36591; 51702; 70450; 71045; 71275; 73502; 78452; 80048; 80053; 81001; 82550; 82962; 83605; 83735; 83880; 84145; 84484; 85025; 87040; 87077; 87086; 87186; 93005; 93017; 93306; 93458; 93971; 94640; 94664; 96365; 96366; 96372; 96374; 96375; 96376; 97110; 97116; 97161; 97165; 97530; 99152; 99153; 99285; A9500; C1760; C1769; C1887; C1894; G0269; J0248; J0280; J0696; J1644; J1650; J1940; J2060; J2250; J2405; J2785; J3010; J3490; J7030; J7040; Q9967

== ENCOUNTER 2024-02-27 17:18 | Inpatient (IN) | payer MEDICARE, MEDICAID, SELFPAY ==
[2024-02-27] VITALS (55 sets, daily range): BP systolic 58–127; BP diastolic 36–102; PULSE 76–119; RESP 12–33; TEMP 36.7; O2SAT 70–100; BMI 39.0
--- NOTE | 2024-02-27 17:28 | CTR_ITS ---
PROCEDURE INFORMATION: Exam: CT Abdomen And Pelvis With Contrast Exam date and time: 02/27/2024 5:50 PM Age: 68 years old Clinical indication: Nausea and vomiting TECHNIQUE: Imaging protocol: Computed tomography of the abdomen and pelvis with contrast. Radiation optimization: All CT scans at this facility use at least one of these dose optimization techniques: automated exposure control; mA and/or kV adjustment per patient size (includes targeted exams where dose is matched to clinical indication); or iterative reconstruction. Contrast material: OMNI 350; Contrast volume: 100 ml; Contrast route: INTRAVENOUS (IV); COMPARISON: CT chest abdpel w/*[id number] 11/16/2023 4:51 PM RADIATION DOSE METRICS: Total DLP (mGy-cm): 1012 FINDINGS: Lungs: There is consolidation at the posterior aspect of the left lower lobe at the left lung base. Esophagus: Distal esophagus is dilated and fluid-filled. There is mucosal thickening of the distal esophagus and gastroesophageal junction. Liver: Normal. No mass. Gallbladder and biliary ducts: The gallbladder has been removed. Pancreas: Mild fatty atrophy of the pancreas. Mild fatty atrophy of the pancreas. Spleen: Normal. No splenomegaly. Adrenal glands: There is multilobulated adenomatous enlargement of the adrenal glands similar to the prior study. Kidneys and ureters: There are cysts with benign features in the kidneys the larger of which measures 14 mm in the left kidney. Follow-up is not necessary. Stomach and bowel: See Esophagus finding. Appendix: No evidence of appendicitis. Intraperitoneal space: Unremarkable. No free air. No significant fluid collection. Vasculature: There is a densely calcified plaque in the abdominal aorta most severe in the infrarenal abdominal aorta with a short segment of severe stenosis seen on series 4, image 45. Multivessel atherosclerotic disease. There is moderate narrowing of the celiac trunk and superior mesenteric artery origins secondary to atherosclerotic plaque. Lymph nodes: Unremarkable. No enlarged lymph nodes. Urinary bladder: The bladder is obscured by artifact from the total hip replacement. A Stewart catheter is partially visualized however largely obscured. Reproductive: Unremarkable as visualized. Bones/joints: Bilateral total hip replacements with resultant artifact obscuring adjacent structures. Soft tissues: There are postoperative changes in the ventral abdominal wall and right inguinal region. There is a right inguinal hernia containing small and large bowel loops without evidence for strangulation or obstruction. On the previous study the anterior aspect of the bladder was seen to herniate through this region however this is not demonstrated on today's study. CT/CT abdomen pelvis w con* [id number] IMPRESSION: 1. There is mucosal thickening of the distal esophagus and gastroesophageal junction consistent with esophagitis/gastritis versus neoplasm. Distal esophagus is dilated and fluid-filled. 2. Consolidation in the posterior aspect of the left lung base may represent atelectatic change. Pneumonia cannot be excluded. 3. There is severe narrowing of the infrarenal abdominal aorta by calcified plaque. 4. There is a right inguinal hernia containing small and large bowel loops without evidence for strangulation or obstruction.
--- NOTE | 2024-02-27 17:29 | ED_ITS ---
HPI - Nausea/Vomiting/Diarrhea 2 General: Chief complaint: GI Bleed Stated complaint: bloody vomit Time Seen by Provider: 02/27/24 17:19 Source: patient Mode of arrival: ambulatory Limitations: no limitations History of Present Illness: 68-year-old female who is here from [facility] with vomiting. States she has had some epigastric abdominal pain with vomiting since afternoon. States she is concerned she has had some coffee-ground emesis no history of any upper GI bleed in the past. She had a recent admission here states she is discharged roughly 5 days ago she denies any fever has no other complaints this time. Associated nausea: Yes Associated symtoms: Reports nausea; Denies chest pain or headache(s) Related Data Home Medications Medication Instructions Recorded Confirmed nitroglycerin 0.4 mg sublingual 0.4 mg sublingual Q5M PRN Chest 04/30/22 02/17/24 tablet (Nitrostat) Pain aspirin 81 mg chewable tablet 81 mg PO QAM 07/10/22 02/17/24 cyanocobalamin (vitamin B-12) 500 500 mcg PO DAILY 07/10/22 02/17/24 mcg tablet (Vitamin B-12) acetaminophen 325 mg capsule 1,300 mg PO BID PRN Pain 01/20/23 02/17/24 metoprolol tartrate 25 mg tablet 12.5 mg PO BID 09/21/23 02/17/24 lidocaine 5 % topical ointment 1 applic topical DAILY PRN Pain 11/03/23 02/17/24 gabapentin 600 mg tablet 600 mg PO BID 02/14/24 02/17/24 ivosidenib 250 mg tablet (Tibsovo) 500 mg PO DAILY 02/14/24 02/17/24 methocarbamol 500 mg tablet 1,000 mg PO Q8H PRN Spasms 02/14/24 02/17/24 omeprazole 40 mg capsule,delayed 40 mg PO DAILY 02/14/24 02/17/24 release Previous Rx's Medication Instructions Recorded Compression Supporting Hose #1 ea 05/30/23 escitalopram oxalate 20 mg tablet 20 mg PO DAILY #90 tabs 08/09/23 ondansetron 4 mg disintegrating 4 mg PO Q6H PRN nausea and 09/21/23 tablet vomiting #14 tabs tamsulosin 0.4 mg capsule 0.4 mg PO BID #60 caps 11/08/23 minocycline 100 mg tablet 100 mg PO DAILY 10 days #10 tabs 01/19/24 lubiprostone 24 mcg capsule 24 mcg PO BID #60 caps 01/23/24 albuterol sulfate 2.5 mg/3 mL 2.5 mg (3 mL) inhalation QID PRN 01/30/24 (0.083 %) solution for nebulization shortness of breath or wheezing #90 mL albuterol sulfate 90 mcg/actuation 1 inh inhalation QID PRN shortness 01/30/24 aerosol inhaler of breath or wheezing #8.5 grams duloxetine 30 mg capsule,delayed 30 mg PO DAILY #90 caps 01/30/24 release morphine 100 mg tablet,extended 100 mg PO BID pain 30 days #60 tabs 02/08/24 release oxycodone 20 mg tablet 20 mg PO Q6H PRN pain 30 days #120 02/08/24 tabs chlorthalidone 50 mg tablet 50 mg PO DAILY #20 tabs 02/13/24 albuterol sulfate 90 mcg/actuation 2 inh inhalation Q8H PRN shortness 02/23/24 aerosol inhaler of breath or wheezing #6.7 grams ciprofloxacin HCl 500 mg tablet 500 mg PO Q12H #14 tabs 02/23/24 (Cipro) lisinopril 20 mg tablet 20 mg PO DAILY #30 tabs 02/23/24 sennosides 8.6 mg-docusate sodium 1 tab-cap PO DAILY #30 tabs 02/23/24 50 mg tablet (Senna-Time S) Allergies Allergy/AdvReac Type Severity Reaction Status Date / Time phenytoin [From Dilantin] Allergy Mild Rash Verified 02/13/24 14:19 Review of Systems 2 Const: Denies: fever(s), chills, body aches or change in appetite ENMT: Denies: throat pain or dental pain Card: Denies: chest pain Resp: Denies: dyspnea GI: Reports: abdominal pain, nausea and vomiting; Denies: diarrhea Musc: Denies: neck pain or back pain Skin/Breast: Denies: rash Neuro: Denies: headache(s) PFSH ED 2 PFSH: Medical History Abnormal stress test Chronic indwelling Stewart catheter Elevated LFTs Elevated troponin Fall Weakness Encephalopathy Urinary tract infection COVID-19 Viral upper respiratory tract infection with cough Lower extremity edema REINA (acute kidney injury) Oxygen dependent COPD (chronic obstructive pulmonary disease) Depression Heart failure with preserved ejection fraction YOLY on CPAP Anxiety and depression CAD (coronary artery disease) Complete rotator cuff tear of left shoulder Primary osteoarthritis, left shoulder Chronic wound infection of abdomen Weakness of left shoulder Cancer related pain Nausea and vomiting Pneumonia Essential hypertension Degenerative arthritis Chronic pain of right knee Chronic narcotic use History of nonmelanoma skin cancer 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 Bean Family History Mother Family history of premature coronary artery disease Hypertension Brother Cancer Hypertension Sister Cancer Father Family history of premature coronary artery disease Hypertension Denies family history of Diabetes CAD (coronary artery disease) Clotting disorder Dementia Hyperlipidemia Psychiatric illness Chronic kidney disease (CKD) Suicide Anesthesia complication Bleeding disorder Lung disease Stroke Social History Smoking and tobacco/nicotine status: former use of tobacco/nicotine Quit status (tobacco/nicotine): has quit using Year quit tobacco: 2016 Former quit date comment: 2ppd x 36 years Second hand smoke exposure: No Alcohol intake: never Substance/Drug Use: never Adopted: No Caregiver/support person: Yes Lives independently: Yes Marital status: Single Current occupational status: employed 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 [employer] [place] Physical Exam 2 Const: COMMON NORMALS: no acute distress, patient oriented x3 and healthy appearing HENMT: COMMON NORMALS: normocephalic and atraumatic HEAD & SCALP: n ormocephalic and atraumatic Eye: COMMON NORMALS: conjunctivae normal CONJUNCTIVA: Yes conjunctivae normal Neck/C-Spine: COMMON NORMALS: full ROM and supple Chest: COMMONS NORMALS: normal inspection of the chest Resp: COMMON NORMALS: normal respiratory effort Cardio: COMMON NORMALS: regular rate RATE: regular rate GI: COMMON NORMALS: Normal to inspection, nondistended, normoactive bowel sounds present, Soft to palpation, non-tender and no masses PALPATION: Yes Soft to palpation RECTAL EXAM: normal sphincter tone, stool normal and No heme positive stool Extremity: COMMON NORMALS: normal to inspection and full ROM Neuro: COMMON NORMALS: patient oriented x3, moves all extremities and no focal motor deficits Psych: COMMON NORMALS: mental status grossly normal, Normal thought process present and cooperative THOUGHT PROCESS: Normal thought process present Skin: COMMON NORMALS: no rashes or lesions noted and no wounds GENERAL SKIN EXAM: no rashes or lesions noted Course 2 Vital Signs: Vital signs: Vital Signs Temperature 98.1 F 02/27/24 17:21 Pulse Rate 116 H 02/27/24 21:00 Respiratory Rate 27 H 02/27/24 21:00 Blood Pressure 105/74 02/27/24 21:00 Pulse Oximetry 96 02/27/24 21:00 Oxygen Delivery Me thod Nasal Cannula 02/27/24 21:00 Oxygen Flow Rate 6 02/27/24 21:00 MDM - Nausea/Vomiting/Diarrhea Medical Decision Making Patient presents here with vomiting concern of possible hematemesis she has had no vomiting here she does have a acute kidney injury with elevated creatinine. CT shows a gastritis along with pneumonia patient given IV fluids along with antibiotics spoke to hospitalist will admit at this time. Medical Records I reviewed the patient's medical records. Lab Data I reviewed the patient's lab results. 02/27/24 19:40 02/27/24 17:32 Radiology Impressions Abdomen/Pelvis CT 02/27/24 17:28 IMPRESSION: 1. There is mucosal thickening of the distal esophagus and gastroesophageal junction consistent with esophagitis/gastritis versus neoplasm. Distal esophagus is dilated and fluid-filled. 2. Consolidation in the posterior aspect of the left lung base may represent atelectatic change. Pneumonia cannot be excluded. 3. There is severe narrowing of the infrarenal abdominal aorta by calcified plaque. 4. There is a right inguinal hernia containing small and large bowel loops without evidence for strangulation or obstruction. Chest X-Ray 02/27/24 19:22 IMPRESSION: Nonspecific left perihilar opacity. This was seen on the prior CT scan as well. Laboratory Results WBC 16.76 10^3/uL (3.29-11.43) H 02/27/24 17:32 RBC 3.42 10^6/uL (3.85-5.65) L 02/27/24 17:32 Hgb 9.50 g/dL (11.27-16.99) L 02/27/24 19:40 Hct 31.0 % (36-47) L 02/27/24 19:40 MCV 96.8 fl (85-98) 02/27/24 17:32 MCH 30.1 pg (27-33) 02/27/24 17: MCHC 31.1 g/dL (30-55) 02/27/24 17: RDW 16.3 % (12.1-15.1) H 02/27/24 17:32 Plt Count 280 10^3/cmm (157-399) 02/27/24 17: MPV 9.9 fL (7.4-10.4) 02/27/24 17:32 Neut % (Auto) 84.6 % 02/27/24 17:32 Lymph % (Auto) 9.1 % 02/27/24 17:32 Sunflower % (Auto) 5.5 % 02/27/24 17: Eos % (Auto) 0.1 % 02/27/24 17:32 Baso % (Auto) 0.2 % 02/27/24 17:32 Neut # (Auto) 14.16 10^3/uL (1.8-7.7) H 02/27/24 17:32 Lymph # (Auto) 1.5 10^3/uL (0.8-4.8) 02/27/24 17:32 Sunflower # (Auto) 0.9 10^3/uL (0.2-0.9) 02/27/24 17:32 Eos # (Auto) 0.0 10^3/uL (0.0-0.8) 02/27/24 17:32 Baso # (Auto) 0.0 10^3/uL (0.0-0.1) 02/27/24 17:32 Nucleated RBC % (auto) 0 % 02/27/24 17: Nucleated RBCs # 0.0 /100WBC 02/27/24 17:32 PT 13.80 SECONDS (12.1-14.9) 02/27/24 17:32 INR 1.02 (0.8-1.2) 02/27/24 17:32 Specimen Type Arterial 02/27/24 19:31 Sample Site Brachial, left 02/27/24 19:31 ABG pH 7.19 (7.35-7.45) L 02/27/24 19:31 ABG pCO2 57.6 mmHg (35-45) H 02/27/24 19:31 ABG pO2 63.4 mmHg (80.0-100.0) L 02/27/24 19:31 ABG PO2/FiO2 Ratio 176 02/27/24 19:31 ABG HCO3 22.2 mmol/L (22-26) 02/27/24 19:31 ABG Base Excess -6.1 mmol/L (-2.0-2.0) L 02/27/24 19:31 Dexter Test N/a 02/27/24 19:31 Hematocrit 30.3 % (37-47) L 02/27/24 19:31 O2 Delivery Device Nc 02/27/24 19:31 O2 Liters/Min 4.0 % 02/27/24 19:31 FiO2 36.0 % 02/27/24 19:31 Recycling Crew Supervisor ID Ed 02/27/24 19:31 Sodium 128 mmol/L (136-145) L 02/27/24 17:32 Potassium 4.0 mmol/L (3.5-5.1) 02/27/24 17:32 Chloride 93 mmol/L (98-107) L 02/27/24 17:32 Carbon Dioxide 21 mmol/L (22-29) L 02/27/24 17:32 Anion Gap 18.0 (5-19) 02/27/24 17:32 BUN 47 mg/dL (8-23) H 02/27/24 17:32 Creatinine 4.3 mg/dL (0.5-0.9) H 02/27/24 17:32 GFR Calculation 10.3 mL/min (90-130) L 02/27/24 17:32 Glucose 137 mg/dL (65-115) H 02/27/24 17:32 POC Glucose 137 mg/dL (70-110) H 02/27/24 20:02 Calculated Osmolality 280 mOsm/kg (285-295) L 02/27/24 17:32 Lactic Acid 1.0 mmol/L (0.5-2.2) 02/27/24 17:32 Calcium 7.9 mg/dL (8.5-10.5) L 02/27/24 17:32 Total Bilirubin 0.5 mg/dL (0.15-1.2) 02/27/24 17:32 AST 19 U/L (0-32) 02/27/24 17:32 ALT 27 U/L (0-33) 02/27/24 17:32 Alkaline Phosphatase 135 U/L (35-105) H 02/27/24 17:32 NT-Pro-B Natriuret Pep 326 pg/mL (0-125) H 02/27/24 17:32 Total Protein 6.3 g/dL (6.6-8.7) L 02/27/24 17:32 Albumin 3.5 g/dL (3.5-5.2) 02/27/24 17:32 Globulin 2.8 g/dL (1.3-4.6) 02/27/24 17:32 Blood Type A Positive 02/27/24 18:43 Rho(D) Type Rh positive 02/27/24 18:43 Antibody Screen Negative 02/27/24 18:43 All radiology interpretation(s) finalized by discharge Discharge Plan Discharge Patient Disposition: Admitted As Inpatient Clinical Impression: Pneumonia, REINA (acute kidney injury), Vomiting Condition: Stable Prescriptions: No Action tamsulosin 0.4 mg capsule 0.4 mg PO BID Qty: 60 3RF minocycline 100 mg tablet 100 mg PO DAILY 10 Days Qty: 10 0RF acetaminophen 325 mg capsule 1,300 mg PO BID PRN (Reason: Pain) escitalopram oxalate 20 mg tablet 20 mg PO DAILY Qty: 90 1RF albuterol sulfate 2.5 mg /3 mL (0.083 %) solution for nebulization 2.5 mg inhalation QID PRN (Reason: shortness of breath or wheezing) Qty: 90 2RF albuterol sulfate 90 mcg/actuation HFA aerosol inhaler 1 inh inhalation QID PRN (Reason: shortness of breath or wheezing) Qty: 8.5 1RF chlorthalidone 50 mg tablet 50 mg PO DAILY Qty: 20 0RF (DME) Compression Supporting Hose See Rx Instructions .Route .MEDSUPPLY Qty: 1 0RF Rx Instructions: As directed lubiprostone 24 mcg capsule 24 mcg PO BID Qty: 60 0RF duloxetine 30 mg capsule,delayed release(DR/EC) 30 mg PO DAILY Qty: 90 1RF morphine 100 mg tablet extended release 100 mg PO BID 30 Days Qty: 60 0RF oxycodone 20 mg tablet 20 mg PO Q6H PRN (Reason: pain) 30 Days Qty: 120 0RF nitroglycerin [Nitrostat] 0.4 mg Tablet, Sublingual 0.4 mg SUBLINGUAL Q5M PRN (Reason: Chest Pain) Rx Instructions: do not exceed 3 doses per episode cyanocobalamin (vitamin B-12) [Vitamin B-12] 500 mcg Tablet 500 mcg PO DAILY aspirin 81 mg Tablet,Chewable 81 mg PO QAM lidocaine 5 % ointment 1 applic topical DAILY PRN (Reason: Pain) metoprolol tartrate 25 mg tablet 12.5 mg PO BID ondansetron 4 mg tablet,disintegrating 4 mg PO Q6H PRN (Reason: nausea and vomiting) Qty: 14 0RF methocarbamol 500 mg tablet 1,000 mg PO Q8H PRN (Reason: Spasms) gabapentin 600 mg tablet 600 mg PO BID omeprazole 40 mg capsule,delayed release(DR/EC) 40 mg PO DAILY Tibsovo 250 mg tablet 500 mg PO DAILY lisinopril 20 mg Tablet 20 mg PO DAILY Qty: 30 0RF sennosides-docusate sodium [Senna-Time S] 8.6-50 mg tablet 1 tab-cap PO DAILY Qty: 30 0RF ciprofloxacin HCl [Cipro] 500 mg tablet 500 mg PO Q12H Qty: 14 0RF albuterol sulfate 90 mcg/actuation HFA aerosol inhaler 2 inh inhalation Q8H PRN (Reason: shortness of breath or wheezing) Qty: 6.7 0RF Referrals: Cyril Ramsey MD [Primary Care Provider] - Coding Level of Care Code ED Sodium Chlorite Operator for Prachi Aguila
[2024-02-27 17:45] LABS: Basophils % 0.2 %; Eosinophils % 0.1 %; Hematocrit 33.1 % (36-47); Lymphocytes # 1.5 10^3/uL (0.8-4.8); Lymphocytes % 9.1 %; Mean Corpuscular HGB Conc 31.1 g/dL (30-55); Mean Corpuscular Hemoglobin 30.1 pg (27-33); Mean Corpuscular Volume 96.8 fl (85-98); Mean Platelet Volume 9.9 fL (7.4-10.4); Monocytes # 0.9 10^3/uL (0.2-0.9); Monocytes % 5.5 %; Neutrophils # 14.16 10^3/uL (1.8-7.7); Neutrophils % 84.6 %; Nucleated Red Blood Cells % 0 %; Platelet Count 280 10^3/cmm (157-399); Red Blood Count 3.42 10^6/uL (3.85-5.65); Red Cell Distribution Width 16.3 % (12.1-15.1); White Blood Count 16.76 10^3/uL (3.29-11.43)
[2024-02-27] MEDS: ondansetron 2 mg/ML SDV 2 mL 4 MG IVP (17:45)
[2024-02-27 17:53] LABS: INR 1.02 (0.8-1.2)
[2024-02-27 17:57] LABS: Alanine Aminotransferase 27 U/L (0-33); Albumin Level 3.5 g/dL (3.5-5.2); Alkaline Phosphatase 135 U/L (35-105); Aspartate Amino Transferase 19 U/L (0-32); Blood Urea Nitrogen 47 mg/dL (8-23); Calcium 7.9 mg/dL (8.5-10.5); Carbon Dioxide 21 mmol/L (22-29); Chloride 93 mmol/L (98-107); Globulin 2.8 g/dL (1.3-4.6); Glomerular Filtration Rate 10.3 mL/min (90-130); Glucose 137 mg/dL (65-115); Osmolality Calculated 280 mOsm/kg (285-295); Sodium 128 mmol/L (136-145); Total Bilirubin 0.5 mg/dL (0.15-1.2); Total Protein 6.3 g/dL (6.6-8.7)
[2024-02-27] MEDS: iohexol 350 mg/mL 500 mL Btl (per mL) IV (18:06)
[2024-02-27] MEDS: sodium chloride 0.9% 1,000 ML 999 ML IV ×2 (18:12→20:05)
--- NOTE | 2024-02-27 19:22 | XRR_ITS ---
PROCEDURE INFORMATION: Exam: XR Chest Exam date and time: 02/27/2024 7:45 PM Age: 68 years old Clinical indication: Shortness of breath; TECHNIQUE: Imaging protocol: Radiologic exam of the chest. Views: 1 view. COMPARISON: CT angio chest PE protcl [id number] 02/19/2024 1:11 PM FINDINGS: Tubes, catheters and devices: Distal PICC line tip projects over the right atrium. Lungs: There is a left perihilar opacity also seen on the prior CT scan. Pleural spaces: Unremarkable. No pleural effusion. No pneumothorax. Heart/Mediastinum: Heart size not optimally evaluated with a single AP view of the chest. Bones/joints: Unremarkable. XR/XR chest 1V portable [id number] IMPRESSION: Nonspecific left perihilar opacity. This was seen on the prior CT scan as well.
[2024-02-27 19:41] LABS: ABG PCO2 57.6 mmHg (35-45); ABG PH Result 7.19 (7.35-7.45); Arterial Blood Gas Hematocrit 30.3 % (37-47); Base Excess ABG -6.1 mmol/L (-2.0-2.0); Blood Gas Sample Type Arterial; HCO3 ABG 22.2 mmol/L (22-26); PO2 ABG 63.4 mmHg (80.0-100.0)
[2024-02-27 19:42] LABS: Blood Gas Operator Identificat ED; Blood Gas Sample Site Brachial, left; Oxygen Device NC; PO2 FiO2 Ratio Arterial Blood 176
[2024-02-27] MEDS: vancomycin 1,000 MG in sodium chloride 0.9% 250 ML 250 MG IV (19:43)
[2024-02-27] MEDS: piperacillin-tazobactam 3.375 GM in sodium chloride 0.9% (plus) 50 ML IV (19:43)
[2024-02-27 19:49] LABS: NT Pro B Type Natriuretic Pept 326 pg/mL (0-125)
[2024-02-27] MEDS: pantoprazole 40 mg SDV 80 MG IVP (19:55)
[2024-02-27 20:05] LABS: Glucose Point of Care 137 mg/dL (70-110)
[2024-02-27] MEDS: naloxone 0.4 mg/ml SDV IVP (20:47)
--- NOTE | 2024-02-27 23:04 | P.HP_ITS ---
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 She is several surgical scars over her right lower extremity and her abdomen. She also has a history of chronic urinary retention for which she has a Stewart catheter in place for the last 4 months. It was recently changed at the retirement. Patient was recently admitted to the hospital on February 17, 2024 for chief complaints of being found down at home. Patient typically wears 2 L/min supplemental oxygen. On her last visit she was diagnosed with COVID-19 infection, UTI, and elevated troponins. Subsequently a stress test was positive and patient underwent coronary angiogram which did not reveal any obstructive CAD. Patient was treated for UTI. PE and DVT were ruled out. Lisinopril was added to her antihypertensive regimen. She had been on minocycline since the diagnosis of her COVID infection, and this was continued and ciprofloxacin was added for UTI. Additionally extended release morphine 100 mg twice daily was continued. She returned to the hospital today from retirement with chief complaints of altered mental status, acute encephalopathy, epigastric abdominal pain and several episodes of coffee-ground vomiting since yesterday. Patient states that she has not had any p.o. intake in the past 2 days owing to the vomiting. She denies any known history of GI bleed in the past. States she had an endoscopy several years ago, does not remember the indication. Does not recall her last colonoscopy at this time. At the time of initial arrival patient was extremely somnolent, she was given Narcan in the emergency room with quick improvement in her mental status. She has since been admitted to the ICU where she has had another episode of somnolence which reversed quickly with administration of Narcan. Review of Systems 2 General: Reports: 10 or more systems reviewed and unremarkable except in HPI and below Const: Denies: fever(s), chills or body aches Eyes: Denies: change in vision, blurry vision or photophobia ENMT: Reports: hoarseness; Denies: throat pain, enlarged tonsils, odynophagia or nasal congestion Card: Denies: chest pain, palpitations, irregular heart rhythm, edema, swelling of feet/ankles, lightheadedness, pre-syncope, dyspnea on exertion or orthopnea Resp: Denies: dyspnea, productive cough, non-productive cough, wheezing, stridor, pain on inspiration, change in phlegm color, hemoptysis or chest congestion GI: Denies: abdominal pain, nausea, vomiting, hematemesis, coffee ground emesis, dysphagia, heartburn, diarrhea, constipation, GI cramping, change in stool character, hematochezia or melena : Denies: flank pain, difficulty voiding, dysuria, urinary frequency, urinary urgency, urinary hesitancy or hematuria Musc: Denies: neck pain, back pain, extremity pain, joint swelling, joint warmth or deformity Neuro: Denies: headache(s), numbness in extremities, weakness in extremities, sensory changes, difficulty walking, frequent falls, dizziness, vertigo, behavioral changes, Slurred speech present or seizure-like activity Psych: Denies: anxiety, depression, suicidal ideation or homicidal ideation Endo: Denies: polyuria, polydipsia, tired all the time, cold intolerance or hot flashes Govind/Lymph: Denies: easy bruising or easy bleeding Medications/Allergies Home Medications Medication Instructions Recorded Confirmed Last Taken Type nitroglycerin 0.4 mg sublingual 0.4 mg sublingual Q5M PRN Chest 04/30/22 02/17/24 Unknown History tablet (Nitrostat) Pain aspirin 81 mg chewable tablet 81 mg PO QAM 07/10/22 02/17/24 02/17/24 08:00 History cyanocobalamin (vitamin B-12) 500 500 mcg PO DAILY 07/10/22 02/17/24 02/17/24 History mcg tablet (Vitamin B-12) acetaminophen 325 mg capsule 1,300 mg PO BID PRN Pain 01/20/23 02/17/24 02/13/24 History Compression Supporting Hose #1 ea 05/30/23 02/17/24 Unknown Rx escitalopram oxalate 20 mg tablet 20 mg PO DAILY #90 tabs 08/09/23 02/17/24 02/17/24 Rx metoprolol tartrate 25 mg tablet 12.5 mg PO BID 09/21/23 02/17/24 02/17/24 History ondansetron 4 mg disintegrating 4 mg PO Q6H PRN nausea and 09/21/23 02/17/24 11/02/23 Rx tablet vomiting #14 tabs lidocaine 5 % topical ointment 1 applic topical DAILY PRN Pain 11/03/23 02/17/24 Unknown History tamsulosin 0.4 mg capsule 0.4 mg PO BID #60 caps 11/08/23 02/17/24 02/17/24 Rx minocycline 100 mg tablet 100 mg PO DAILY 10 days #10 tabs 01/19/24 02/17/24 02/17/24 Rx lubiprostone 24 mcg capsule 24 mcg PO BID #60 caps 01/23/24 02/17/24 02/17/24 Rx albuterol sulfate 2.5 mg/3 mL 2.5 mg (3 mL) inhalation QID PRN 01/30/24 02/17/24 02/13/24 Rx (0.083 %) solution for nebulization shortness of breath or wheezing #90 mL albuterol sulfate 90 mcg/actuation 1 inh inhalation QID PRN shortness 01/30/24 02/17/24 02/13/24 Rx aerosol inhaler of breath or wheezing #8.5 grams duloxetine 30 mg capsule,delayed 30 mg PO DAILY #90 caps 01/30/24 02/17/24 02/17/24 Rx release morphine 100 mg tablet,extended 100 mg PO BID pain 30 days #60 tabs 02/08/24 02/17/24 02/17/24 Rx release oxycodone 20 mg tablet 20 mg PO Q6H PRN pain 30 days #120 02/08/24 02/17/24 02/17/24 08:00 Rx tabs chlorthalidone 50 mg tablet 50 mg PO DAILY #20 tabs 02/13/24 02/17/24 02/17/24 08:00 Rx gabapentin 600 mg tablet 600 mg PO BID 02/14/24 02/17/24 02/17/24 History ivosidenib 250 mg tablet (Tibsovo) 500 mg PO DAILY 02/14/24 02/17/24 02/17/24 History methocarbamol 500 mg tablet 1,000 mg PO Q8H PRN Spasms 02/14/24 02/17/24 02/13/24 History omeprazole 40 mg capsule,delayed 40 mg PO DAILY 02/14/24 02/17/24 02/17/24 History release albuterol sulfate 90 mcg/actuation 2 inh inhalation Q8H PRN shortness 02/23/24 Unknown Rx aerosol inhaler of breath or wheezing #6.7 grams ciprofloxacin HCl 500 mg tablet 500 mg PO Q12H #14 tabs 02/23/24 Unknown Rx (Cipro) lisinopril 20 mg tablet 20 mg PO DAILY #30 tabs 02/23/24 Unknown Rx sennosides 8.6 mg-docusate sodium 1 tab-cap PO DAILY #30 tabs 02/23/24 Unknown Rx 50 mg tablet (Senna-Time S) Allergies Allergy/AdvReac Type Severity Reaction Status Date / Time phenytoin [From Dilantin] Allergy Mild Rash Verified 02/13/24 14:19 PFSH Acute 2 PFSH: Medical History Abnormal stress test Chronic indwelling Stewart catheter Elevated LFTs Elevated troponin Fall Weakness Encephalopathy Urinary tract infection COVID-19 Viral upper respiratory tract infection with cough Lower extremity edema REINA (acute kidney injury) Oxygen dependent COPD (chronic obstructive pulmonary disease) Depression Heart failure with preserved ejection fraction YOLY on CPAP Anxiety and depression CAD (coronary artery disease) Complete rotator cuff tear of left shoulder Primary osteoarthritis, left shoulder Chronic wound infection of abdomen Weakness of left shoulder Cancer related pain Nausea and vomiting Pneumonia Essential hypertension Degenerative arthritis Chronic pain of right knee Chronic narcotic use History of nonmelanoma skin cancer 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 Bean Family History Mother Family history of premature coronary artery disease Hypertension Brother Cancer Hypertension Sister Cancer Father Family history of premature coronary artery disease Hypertension Denies family history of Diabetes CAD (coronary artery disease) Clotting disorder Dementia Hyperlipidemia Psychiatric illness Chronic kidney disease (CKD) Suicide Anesthesia complication Bleeding disorder Lung disease Stroke Social History Smoking and tobacco/nicotine status: former use of tobacco/nicotine Quit status (tobacco/nicotine): has quit using Year quit tobacco: 2017 Former quit date comment: 2ppd x 36 years Second hand smoke exposure: No Alcohol intake: never Substance/Drug Use: never Adopted: No Caregiver/support person: Yes Lives independently: Yes Marital status: Single Current occupational status: employed 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 Dried coffee-ground contents present around her mouth. Chest: Normal vesicular breath sounds, no added sounds, equal good air entry bilaterally CVS: S1-S2, + tachycardia, no gallops, no rubs Abdomen: Soft, nontender, scarring present over the right abdominal wall without any open sores at this time Neuro: No focal deficits, no facial deformity, AO x3, moving all extremities while laying in bed Extremities: Minimal asymmetric edema right greater than left lower extremities. Data 02/27/24 19:40 02/27/24 17:32 Micro: Microbiology 02/27/24 19:42 Blood Culture - Preliminary Blood SPECIMEN COLLECTED 02/27/24 19:40 Blood Culture - Preliminary Blood SPECIMEN COLLECTED Other data: CT/CT abdomen pelvis w con* [id number] IMPRESSION: 1. There is mucosal thickening of the distal esophagus and gastroesophageal junction consistent with esophagitis/gastritis versus neoplasm. Distal esophagus is dilated and fluid-filled. 2. Consolidation in the posterior aspect of the left lung base may represent atelectatic change. Pneumonia cannot be excluded. 3. There is severe narrowing of the infrarenal abdominal aorta by calcified plaque. 4. There is a right inguinal hernia containing small and large bowel loops without evidence for strangulation or obstruction. XR/XR chest 1V portable [id number] IMPRESSION: Nonspecific left perihilar opacity. This was seen on the prior CT scan as well. A&P Assessment and plan (1) GI bleeding: Patient with recent history as noted above, currently presenting to the hospital with abdominal pain, vomiting 2 days after having recently been discharged for the hospital. Contents of vomitus or coffee-ground, raising concern for GI bleeding. There is coffee-ground material coated around her mouth at this present time. Hemoglobin currently at 9.5, same as recent discharge CT of the abdomen and pelvis shows mucosal thickening of the distal esophagus and GE junction consistent with esophagitis gastritis versus neoplasm. Distal esophagus is dilated and fluid-filled N.p.o. She has received Protonix 80 mg IV in the emergency room Continue Protonix 40 mg IV every 12 hours Monitor H&H every 6 hours, transfuse if hemoglobin less than 7. Zofran 4 mg IV every 8 hours for nausea. General surgery consulted to assess for endoscopy. Hold minocycline as likely to precipitate esophagitis. She has completed an adequate course, it appears antibiotic was being used for post-COVID respiratory illness. (2) REINA (acute kidney injury): Acute kidney injury with creatinine today at 4.5, increased from 0.8 on last hospital discharge. Suspect this to be multifactorial related to volume loss from GI bleed, hypotension, recent initiation of lisinopril and possibly component of BERTIN from recent angiogram performed on February 22, 2024. Review of chart shows patient has been on Bumex and chlorthalidone as outpatient for chronic lower extremity swelling. Currently clinically appearing to be dehydrated She has received 2 L of IV fluid bolus in the emergency room, will continue cautious fluid supplementation with normal saline at 50 cc an hour. It appears diuretics were being used for her history of heart failure. Her recent echocardiogram from February 18, 2024 shows normal LV size with slightly diminished EF of 52%, abnormal septal motion consistent with conduction abnormality, moderately increased pulmonary hypertension with PASP of 59 mmHg. Development of pulmonary hypertension is new compared to November 2022. Gentle hydration given these findings. Trend creatinine with above measures Hold lisinopril Renally dose all medications Closely monitor urine output. Patient states that she has not peed in over 2 days. Of note she has a chronic indwelling Stewart catheter with noted urine to be flowing in tube and bag at this present time, less likely to have urinary retention. States that her catheter was recently changed upon retirement arrival. (3) Opiate or related narcotic overdose: Patient was encephalopathic upon ER arrival, received Narcan with quick improvement in her mental status. ABG upon admission showing 7.19/57.6/63.4/22.2. Requested repeat ABG once patient is more awake and alert post administration of Narcan. Patient is chronically on morphine 100 mg twice daily extended release, suspect her to have delayed clearance now with her much worsened kidney function. Hold all opiates. Closely monitor mental status in the ICU, may need further administration of Narcan has a h/o sleep apnea but does not wear CPAP due to being claustrophobic (4) Chronic narcotic use: (5) Acute encephalopathy: Likely from accidental opiate overdose. (6) Pneumonia: (7) Metabolic acidosis: Likely a combination of mixed respiratory and metabolic acidosis. Lactate is normal Bicarb currently within normal limits Metabolic acidosis likely contributed by acute kidney failure and dehydration. Repeat ABG after administration of Narcan and IV fluids. (8) Hypotension: Hypotension with blood pressure down to 80/38 mmHg. After administration of Narcan this is improved at 150/100 mmHg. She has needed narcan x 2 thus far. Will closely monitor in the ICU for fluctuating blood pressure. May need initiation of pressors if continues to be persistently hypotensive. May need continuous narcan infusion if encephalopathy is recurrent Plan DVT prophylaxis: SCDs only. Anticoagulation contraindicated due to GI bleed Full code Attestations 2 Medical Necessity Statement*: Greater than 2 midnight admission is anticipated for above defined care, need for IV fluids, acute kidney injury, hypotension, expected use of vasopressors, acute GI bleed, needs close hemoglobin monitoring. Critical Care Time: The high probability of a clinically significant, sudden or life threatening deterioration of the patient's [GI,respiratory,cardiac] system(s) required my full and direct attention, intervention and personal management. The critical care time is as shown. This time is in addition to time spent performing any reported procedures but includes the following: [x] Data and vital sign review and interpretation [x] Patient assessment, examination and intervention [x] Documentation [x] Medication orders and management Critical Care Time (min): 60 Coding Level of Care Code Critical Care >/= 30 minutes Diagnoses GI bleeding K92.2 REINA (acute kidney injury) N17.9 Opiate or related narcotic overdose T40.601A Chronic narcotic use F11.90 Acute encephalopathy G93.40 Pneumonia J18.9 Metabolic acidosis E87.20 Hypotension I95.9
[2024-02-28] VITALS (226 sets, daily range): BP systolic 51–160; BP diastolic 32–89; PULSE 63–126; RESP 10–36; TEMP 37.1; O2SAT 75–100
--- NOTE | 2024-02-28 00:44 | PC.NURSE ---
Patient arrived from ED at 2155, Contacted Dr. Zuleta and made aware of arrival and orders received at that time. Upon arrival patient was alert, keenly responsive, and answered questions appropriately. Automatic blood pressures consistently in 80/40 range, but manual blood pressures consistently in 110/50 range. Patient has since became more lethargic, sluggish to respond, awakens with painful stimuli then goes back to sleep. Blood pressures (automatic and manual) in 80/40 range. Attempted to call Dr. Zuleta and messages sent via [employer] to make aware, no new orders at this time.
[2024-02-28] MEDS: naloxone 0.4 mg/ml SDV IVP ×3 (01:04→09:49)
[2024-02-28] MEDS: sodium chloride 0.9% 1,000 ML 50 ML IV (01:35)
[2024-02-28] MEDS: gabapentin 300 mg Capsule 600 MG PO ×3 (01:35→17:39)
--- NOTE | 2024-02-28 01:43 | PC.NURSE ---
Spoke with Dr. Zuleta regarding hypotension and decreased LOC. New orders received for Narcan x1 and levophed PRN. Narcan administered and patient quickly awakened, blood pressure initally high, then as patient calmed blood pressure stabilized. Current BP 110/72, patient alert, oriented x3, states she has leg pain, scheduled gabapentin administered.
[2024-02-28 01:46] LABS: ABG PCO2 50.7 mmHg (35-45); ABG PH Result 7.23 (7.35-7.45); Alveolar-Arterial Oxygen Gradi 1.7 mmHg (5-10); Arterial Blood Gas Hematocrit 29.6 % (37-47); Base Excess ABG -6.3 mmol/L (-2.0-2.0); Blood Gas Allen Test Pos; Blood Gas Sample Site Brachial, right; Blood Gas Sample Type Arterial; Carboxyhemoglobin 1.1 %THgb (0.4-20.1); HCO3 ABG 21.2 mmol/L (22-26); HGB O2 Sat 91.7 % (95-100); Ionized Calcium Level - ABG 1.1 mmol/L (1.1-1.4); Methemoglobin 1.4 % (0.4-1.5); Oxygen Device NC; Oxygen Saturation ABG 94.1; Total Hemoglobin 9.6 g/dL (12-16)
[2024-02-28] MEDS: norepinephrine 4 MG/250 ML BAG 7.5 MG IV (01:55)
[2024-02-28 02:20] LABS: Basophils % 0.2 %; Eosinophils % 0.4 %; Hematocrit 28.2 % (36-47); Lymphocytes # 1.1 10^3/uL (0.8-4.8); Lymphocytes % 12.8 %; Mean Corpuscular HGB Conc 31.2 g/dL (30-55); Mean Corpuscular Hemoglobin 30.2 pg (27-33); Mean Corpuscular Volume 96.9 fl (85-98); Mean Platelet Volume 9.9 fL (7.4-10.4); Monocytes # 0.6 10^3/uL (0.2-0.9); Monocytes % 6.6 %; Neutrophils # 6.75 10^3/uL (1.8-7.7); Neutrophils % 79.6 %; Nucleated Red Blood Cells % 0 %; Platelet Count 206 10^3/cmm (157-399); Red Blood Count 2.91 10^6/uL (3.85-5.65); Red Cell Distribution Width 16.2 % (12.1-15.1); White Blood Count 8.47 10^3/uL (3.29-11.43)
[2024-02-28 02:40] LABS: Alanine Aminotransferase 22 U/L (0-33); Albumin Level 3.1 g/dL (3.5-5.2); Alkaline Phosphatase 121 U/L (35-105); Anion Gap 14.3 (5-19); Aspartate Amino Transferase 17 U/L (0-32); Blood Urea Nitrogen 46 mg/dL (8-23); Calcium 7.3 mg/dL (8.5-10.5); Carbon Dioxide 22 mmol/L (22-29); Chloride 96 mmol/L (98-107); Creatinine Clr Calc Pharmacy 14.6589; Globulin 2.5 g/dL (1.3-4.6); Glomerular Filtration Rate 10.6 mL/min (90-130); Glucose 109 mg/dL (65-115); Magnesium 1.5 mg/dL (1.7-2.3); Osmolality Calculated 278 mOsm/kg (285-295); Phosphorus 6.7 mg/dL (2.5-4.5); Potassium 4.3 mmol/L (3.5-5.1); Sodium 128 mmol/L (136-145); Total Bilirubin 0.4 mg/dL (0.15-1.2); Total Protein 5.6 g/dL (6.6-8.7)
[2024-02-28] MEDS: meropenem 500 mg SDV IVP ×2 (03:09→16:10)
[2024-02-28 04:23] LABS: Bilirubin Urine Negative (Negative); Blood Urine 2+ (Negative); Glucose Urine UA Negative (Normal); Ketones Urine Negative (Negative); Leukocyte Esterase Urine 1+ (Negative); Nitrate Urine Negative (Negative); Protein Urine 1+ (Negative); Specific Gravity, Urine 1.023 (1.005-1.030); Urine Appearance Cloudy (CLEAR); Urine Color Yellow (Yellow)
[2024-02-28 04:28] LABS: Add Urine Microscopic? YES; Bacteria Urine None Seen /hpf; Hyaline Casts Urine 6.17 /lpf; RBC Urine 51-100 /hpf (0-2); Squamous Epithelial Cell Urine 0-5 /hpf (0-5); WBC Urine 21-50 /hpf (0-5)
[2024-02-28 04:42] LABS: Potassium, Radom Urine 12 mmol/L
[2024-02-28 04:47] LABS: Urine Random Chloride 10 mmol/L; Urine Random Sodium 18 mmol/L
[2024-02-28 04:51] LABS: UA Slide Review UA Slide Review Perf
[2024-02-28 04:52] LABS: Add Urine Culture? Yes; Mucus Urine 2+ /hpf
[2024-02-28 05:07] LABS: MRSA PCR OZH (swab) MRSA Detected (Not Detecte)
[2024-02-28] MEDS: pantoprazole 40 mg SDV IVP ×2 (08:30→17:40)
[2024-02-28 09:51] LABS: Hematocrit 35.5 % (36-47)
[2024-02-28 09:55] LABS: Alveolar-Arterial Oxygen Gradi 17.1 mmHg (5-10); Arterial Blood Gas Hematocrit 30.4 % (37-47); Base Excess ABG -6.3 mmol/L (-2.0-2.0); Blood Gas Allen Test Pos; Blood Gas Operator Identificat GD; Blood Gas Sample Site Radial, left; Blood Gas Sample Type Arterial; Carboxyhemoglobin 1.2 %THgb (0.4-20.1); HGB O2 Sat 89.9 % (95-100); Ionized Calcium Level - ABG 1.1 mmol/L (1.1-1.4); Methemoglobin 1.4 % (0.4-1.5); Oxygen Device NC; Oxygen Saturation ABG 92.3; PO2 ABG 75.7 mmHg (80.0-100.0); PO2 FiO2 Ratio Arterial Blood 189; Potassium Level - ABG 3.9 mmol/L (3.5-5.0); Total Hemoglobin 9.9 g/dL (12-16)
[2024-02-28 09:56] LABS: ABG PH Result 7.15 (7.35-7.45)
[2024-02-28 09:57] LABS: ABG PCO2 66.1 mmHg (35-45)
[2024-02-28] MEDS: duloxetine 30 mg Capsule PO (10:02)
[2024-02-28] MEDS: norepinephrine 4 MG/250 ML BAG 30 MG IV (10:53)
--- NOTE | 2024-02-28 13:18 | P.PN_ITS ---
Subjective 2 Subjective: Patient was arousable on verbal command however goes back to sleep right away I gave her another Narcan ABG repeat showed worsening of hypercapnia, she was put on BiPAP until she goes for EGD Vitals/I&O/Wt Last Vital Signs Temp 98.1 F 02/27/24 17:21 Pulse 98 02/28/24 12:50 Resp 22 H 02/28/24 12:25 BP 100/40 02/28/24 12:45 Pulse Ox 89 L 02/28/24 12:50 O2 Del Method Nasal Cannula 02/28/24 10:34 O2 Flow Rate 3 02/28/24 10:34 02/27/24 02/28/24 02/28/24 22:59 06:59 14:59 Intake Total 2300 / 2300 28.00 / 2328.00 689.25 / 689.25 Output Total 650 / 650 1500 / 1500 Balance 2300 / 2300 -622.00 / 1678.00 -810.75 / -810.75 Weight last 48 hrs Weight 99.79 kg Weight 100 kg Weight 100.698 kg Physical Exam 2 Narrative: Patient clinically looks dehydrated Currently on Levophed Arousable to verbal commands She is able to move her extremities Currently on BiPAP Distended nontender abdomen Rash extending from her right inguinal region towards right subcostal margin with granulation tissue and erythema with scaling of skin, do not see any active signs of infection S1, S2 Data 02/28/24 09:32 02/28/24 02:00 Micro: Microbiology 02/27/24 19:42 Blood Culture - Preliminary Blood SPECIMEN COLLECTED 02/27/24 19:40 Blood Culture - Preliminary Blood SPECIMEN COLLECTED A&P Assessment and plan (1) GI bleeding: (2) REINA (acute kidney injury): (3) Opiate or related narcotic overdose: (4) Chronic narcotic use: (5) Acute encephalopathy: (6) Pneumonia: (7) Metabolic acidosis: (8) Hypotension: Plan Patient is n.p.o. Hemoglobin stable Patient is requiring Levophed clinically looks very dehydrated Hyponatremia Patient takes antidepressants and strong opioids Clinically looks dehydrated She also takes chlorthalidone Patient recently had an angiogram which was unremarkable Going going for EGD today Will follow-up with biopsy report as well Opioid-induced respiratory depression causing hypercapnia Continue BiPAP for now She was given extra dose of Narcan today as well Acute kidney injury: Creatinine 4.2 Monitor potassium 4.3 Patient is not acidotic Monitor urine output for now DVT prophylaxis: SCDs only. Anticoagulation contraindicated due to GI bleed Full code Attestations 2 Medical Necessity Statement*: Continue ICU management Diagnoses GI bleeding K92.2 REINA (acute kidney injury) N17.9 Opiate or related narcotic overdose T40.601A Chronic narcotic use F11.90 Acute encephalopathy G93.40 Pneumonia J18.9 Metabolic acidosis E87.20 Hypotension I95.9
[2024-02-28 14:42] LABS: ABG PH Result 7.25 (7.35-7.45); Arterial Blood Gas Hematocrit 30.7 % (37-47); Base Excess ABG -4.4 mmol/L (-2.0-2.0); Blood Gas Operator Identificat GD; Blood Gas Sample Site Brachial, left; Blood Gas Sample Type Arterial; Oxygen Device NC; PO2 ABG 66.7 mmHg (80.0-100.0); PO2 FiO2 Ratio Arterial Blood 208
--- NOTE | 2024-02-28 18:48 | PM.CONSULT ---
Providers/Reason For Consult Consulting Physician/Specialty*: DO/General Surgery Reason for Consult*: Hematemesis Attending Physician: Carly Zuleta MD Primary Care Provider: Cyril Ramsey MD History of Present Illness History of Present Illness Dennise Funes is a 68 year old female, with a history of sarcoma of the right lower extremity and chronic opioid use, who presented to the hospital from a fdc with confusion and somnolence. She is currently in the ICU on BiPAP and very somnolent. Her daughter is at the bedside and answering questions. Patient was given Narcan multiple times yesterday with good arousal response. She was recently in the hospital with a UTI and currently has severe sepsis with pneumonia and acute kidney injury. She reportedly had an episode of coffee-ground emesis at the fdc for coming to the ER. Hemoccult was negative in the ER. HPI and review of systems are limited secondary to patient's somnolence. Patient's daughter reports that her mother has been suffering from severe constipation. CT of the abdomen pelvis shows There is mucosal thickening of the distal esophagus and gastroesophageal junction consistent with esophagitis/gastritis versus neoplasm. Distal esophagus is dilated and fluid-filled. Along with a large right inguinal hernia containing small and large bowel without signs of strangulation. Review of Systems General: Reports: ROS unobtainable due to mental status Medications/Allergies Home Medications Medication Instructions Recorded Confirmed Last Taken Type nitroglycerin 0.4 mg sublingual 0.4 mg sublingual Q5M PRN Chest 04/30/22 02/28/24 Unknown History tablet (Nitrostat) Pain aspirin 81 mg chewable tablet 81 mg PO QAM 07/10/22 02/28/24 02/17/24 08:00 History cyanocobalamin (vitamin B-12) 500 500 mcg PO DAILY 07/10/22 02/28/24 02/17/24 History mcg tablet (Vitamin B-12) Compression Supporting Hose #1 ea 05/30/23 02/28/24 Unknown Rx escitalopram oxalate 20 mg tablet 20 mg PO DAILY #90 tabs 08/09/23 02/28/24 02/17/24 Rx metoprolol tartrate 25 mg tablet 12.5 mg PO BID 09/21/23 02/28/24 02/17/24 History ondansetron 4 mg disintegrating 4 mg PO Q6H PRN nausea and 09/21/23 02/28/24 11/02/23 Rx tablet vomiting #14 tabs tamsulosin 0.4 mg capsule 0.4 mg PO BID #60 caps 11/08/23 02/28/24 02/17/24 Rx minocycline 100 mg tablet 100 mg PO DAILY 10 days #10 tabs 01/19/24 02/28/24 02/17/24 Rx lubiprostone 24 mcg capsule 24 mcg PO BID #60 caps 01/23/24 02/28/24 02/17/24 Rx albuterol sulfate 2.5 mg/3 mL 2.5 mg (3 mL) inhalation QID PRN 01/30/24 02/28/24 02/13/24 Rx (0.083 %) solution for nebulization shortness of breath or wheezing #90 mL albuterol sulfate 90 mcg/actuation 1 inh inhalation QID PRN shortness 01/30/24 02/28/24 02/13/24 Rx aerosol inhaler of breath or wheezing #8.5 grams duloxetine 30 mg capsule,delayed 30 mg PO DAILY #90 caps 01/30/24 02/28/24 02/17/24 Rx release morphine 100 mg tablet,extended 100 mg PO BID pain 30 days #60 tabs 02/08/24 02/28/24 02/17/24 Rx release oxycodone 20 mg tablet 20 mg PO Q6H PRN pain 30 days #120 02/08/24 02/28/24 02/17/24 08:00 Rx tabs chlorthalidone 50 mg tablet 50 mg PO DAILY #20 tabs 02/13/24 02/28/24 02/17/24 08:00 Rx gabapentin 600 mg tablet 600 mg PO BID 02/14/24 02/28/24 02/17/24 History ivosidenib 250 mg tablet (Tibsovo) 500 mg PO DAILY 02/14/24 02/28/24 02/17/24 History methocarbamol 500 mg tablet 1,000 mg PO Q8H PRN Spasms 02/14/24 02/28/24 02/13/24 History omeprazole 40 mg capsule,delayed 40 mg PO DAILY 02/14/24 02/28/24 02/17/24 History release ciprofloxacin HCl 500 mg tablet 500 mg PO Q12H #14 tabs 02/23/24 02/28/24 Unknown Rx (Cipro) lisinopril 20 mg tablet 20 mg PO DAILY #30 tabs 02/23/24 02/28/24 Unknown Rx sennosides 8.6 mg-docusate sodium 1 tab-cap PO DAILY #30 tabs 02/23/24 02/28/24 Unknown Rx 50 mg tablet (Senna-Time S) Allergies Allergy/AdvReac Type Severity Reaction Status Date / Time phenytoin [From Dilantin] Allergy Mild Rash Verified 02/13/24 14:19 Current Medications Generic Name Dose Route Start Last Admin Trade Name Freq PRN Reason Stop Dose Admin Duloxetine HCl 30 mg 02/28/24 09:00 02/28/24 10:02 Duloxetine 30 Mg Capsule PO 30 mg DAILY GILMA Administration Gabapentin 600 mg 02/28/24 00:00 02/28/24 17:39 Gabapentin 300 Mg Capsule PO 600 mg BID GILMA Administration Norepinephrine Bitartrate 4 mg in 250 mls @ 0 mls/hr 02/28/24 01:00 02/28/24 18:18 Levophed IV 4 mcg/min .Q0M GILMA 15 mls/hr Titration Protocol Per Protocol Sodium Chloride 1,000 mls @ 50 mls/hr 02/28/24 01:45 02/28/24 01:35 Sodium Chloride 0.9% IV 02/28/24 21:44 50 mls/hr .Q20H GILMA Administration Meropenem 500 mg 02/28/24 02:30 02/28/24 16:10 Meropenem 500 Mg Sdv IVP 500 mg Q12H GILMA Administration Protocol Metoprolol Tartrate 12.5 mg 02/28/24 18:00 02/28/24 17:29 Metoprolol Tartrate 25 Mg Tablet PO Not Given BID GILMA Morphine Sulfate 100 mg 02/28/24 18:00 02/28/24 17:49 Morphine Er (12 Hr) 100 Mg Tablet PO Not Given BID GILMA Pantoprazole Sodium 40 mg 02/28/24 09:00 02/28/24 17:40 Pantoprazole 40 Mg Sdv IVP 40 mg BID GILMA Administration PFSH Acute PFSH: Medical History Abnormal stress test Chronic indwelling Stewart catheter Elevated LFTs Elevated troponin Fall Weakness Encephalopathy Urinary tract infection COVID-19 Viral upper respiratory tract infection with cough Lower extremity edema REINA (acute kidney injury) Oxygen dependent COPD (chronic obstructive pulmonary disease) Depression Heart failure with preserved ejection fraction YOLY on CPAP Anxiety and depression CAD (coronary artery disease) Complete rotator cuff tear of left shoulder Primary osteoarthritis, left shoulder Chronic wound infection of abdomen Weakness of left shoulder Cancer related pain Nausea and vomiting Pneumonia Essential hypertension Degenerative arthritis Chronic pain of right knee Chronic narcotic use History of nonmelanoma skin cancer 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 Bean Family History Mother Family history of premature coronary artery disease Hypertension Brother Cancer Hypertension Sister Cancer Father Family history of premature coronary artery disease Hypertension Denies family history of Diabetes CAD (coronary artery disease) Clotting disorder Dementia Hyperlipidemia Psychiatric illness Chronic kidney disease (CKD) Suicide Anesthesia complication Bleeding disorder Lung disease Stroke Social History Smoking and tobacco/nicotine status: former use of tobacco/nicotine Quit status (tobacco/nicotine): has quit using Year quit tobacco: 2016 Former quit date comment: 2ppd x 36 years Second hand smoke exposure: No Alcohol intake: never Substance/Drug Use: never Adopted: No Caregiver/support person: Yes Lives independently: Yes Marital status: Single Current occupational status: employed 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 Vitals/I&O/Wt Last Vital Signs Temp 98.7 F 02/28/24 18:15 Pulse 88 02/28/24 18:15 Resp 16 02/28/24 18:15 BP 104/49 02/28/24 18:15 Pulse Ox 94 02/28/24 18:15 O2 Del Method Nasal Cannula 02/28/24 10:34 O2 Flow Rate 3 02/28/24 10:34 FiO2 30 02/28/24 16:47 02/28/24 02/28/24 02/28/24 06:59 14:59 22:59 Intake Total 28.00 / 2328.00 811.25 / 811.25 75.375 / 886.625 Output Total 650 / 650 1500 / 1500 1200 / 2700 Balance -622.00 / 1678.00 -688.75 / -688.75 -1124.625 / -1813.375 Weight last 48 hrs Weight 220 lb Weight 220 lb 7.396 oz Weight 222 lb Physical Exam Narrative: General : Patient is well developed , somnolent and not easily arousable Head : Normal cephalic, a-traumatic. Ears : Pinnae and external canal are normal. Hearing is normal. Nose : Mucous membranes are without erythema. Lungs : Equal chest rise bilaterally, no use of accessory muscles, trachea is midline. Cor : Rate and rhythm are normal. Abdomen : Soft, ND, NT, reducible right inguinal hernia, no g/r/m Extremities : No edema, no cyanosis or clubbing, dorsalis pedis pulses are present bilaterally, non-tender to palpation of calves. Upper extremities are normal bilaterally. Back : non-tender to palpation, no CVA tenderness. Neuro : No focal deficit Urinary Catheter Management: Stewart: Cath Placed During This Visit: yes Reason for Continuing Indwelling Catheter: Accurate Measurement of Urinary Output in Critically Ill Patients Urinary Catheter Date of Insertion: 02/28/24 Urinary Catheter Time of Insertion: 14:11 Data 02/28/24 09:32 02/28/24 02:00 Micro: Microbiology 02/27/24 19:42 Blood Culture - Preliminary Blood Staphylococcus epidermidis 02/27/24 19:40 Blood Culture - Preliminary Blood SPECIMEN COLLECTED A&P Assessment and plan (1) GI bleeding: (2) Vomiting: (3) Right inguinal hernia: (4) Constipation: Plan Protonix and sucralfate magnesium citrate N.p.o. after midnight Tomorrow for EGD The risks and benefits of the procedure, including bleeding, infection, intestinal perforation requiring surgery, missed lesion were explained to the patient. The patient is understanding of the risks and wishes to proceed. Consent was obtained from the patient's daughter No acute surgical intervention regarding her right inguinal hernia Medical management per hospitalist Coding Level of Care Code 97288 Diagnoses GI bleeding K92.2 Vomiting R11.10 Right inguinal hernia K40.90 Constipation K59.00
[2024-02-28] MEDS: sucralfate 1 gm/10 mL Oral Liq UDC PO (20:06)
[2024-02-28] MEDS: magnesium citrate Btl 296 mL 150 ML PO (20:07)
[2024-02-28] MEDS: ondansetron 2 mg/ML SDV 2 mL 4 MG IVP (21:39)
--- NOTE | 2024-02-28 22:41 | ECG_ITS ---
[facility] Test Date: 2024-02-28 Pat Name: Dennise Funes Department: Room: ICU11 Gender: Female Auto Adjudication Specialist: : [id number] Requested By: Carly Zuleta Order Number: [id number] Evgeny MD: Iftikhar Bradley M.D. Measurements Intervals [place] Rate: 90 P: 50 MN: 179 QRS: 31 QRSD: 154 T: 137 QT: 394 QTc: 482 Interpretive Statements SINUS RHYTHM LEFT BUNDLE BRANCH BLOCK [120+ ms QRS DURATION, 80+ ms Q/S IN V1/V2, 85+ ms R IN I/aVL/V5/V6] Compared to ECG 02/17/2024 20:01:33 Left bundle-branch block now present Intraventricular conduction delay no longer present Electronically Signed On 02-29-2024 01:14:06 CDT by Iftikhar Bradley M.D. [id number]
--- NOTE | 2024-02-28 22:59 | PC.NURSE ---
Chest pain Patient complaining of 6/10 chest pain. States that it does not radiate and occurs only in chest. EKG performed, image sent to Dr Zuleta via VOAL[employer] messaging. Received orders for a stat troponin, troponin series, and EKG series.
[2024-02-28 23:03] LABS: Troponin T (5th) Once 38 ng/L (0-10)
[2024-02-28] MEDS: ALPRAZolam 0.5 mg Tablet 0.25 MG PO (23:55)
[2024-02-28] MEDS: norepinephrine 4 MG/250 ML BAG 15 MG IV (23:59)
[2024-02-29] VITALS (47 sets, daily range): BP systolic 82–170; BP diastolic 35–89; PULSE 65–94; RESP 13–22; TEMP 36.4; O2SAT 93–100
--- NOTE | 2024-02-29 00:41 | ECG_ITS ---
[facility] Test Date: 2024-02-29 Pat Name: Dennise Funes Department: Room: ICU11 Gender: Female Schedule Supervisor: : [id number] Requested By: Carly Zuleta Order Number: [id number] Evgeny MD: Iftikhar Bradley M.D. Measurements Intervals [place] Rate: 69 P: 47 NC: 192 QRS: 21 QRSD: 154 T: 110 QT: 451 QTc: 486 Interpretive Statements SINUS RHYTHM INTRAVENTRICULAR CONDUCTION DELAY [130+ ms QRS DURATION] Compared to ECG 02/28/2024 22:26:22 Intraventricular conduction delay now present Left bundle-branch block no longer present Electronically Signed On 03-01-2024 00:59:29 CDT by Iftikhar Bradley M.D. [id number]
[2024-02-29 00:59] LABS: Troponin 5 2HR 31.33 ng/L (0-10)
[2024-02-29 01:02] LABS: Troponin 5 2HR Delta -6.67 ABS# (0-10)
[2024-02-29] MEDS: meropenem 500 mg SDV IVP ×2 (03:50→16:42)
[2024-02-29 04:27] LABS: ABG PCO2 56.5 mmHg (35-45); ABG PH Result 7.29 (7.35-7.45); Base Excess ABG -0.2 mmol/L (-2.0-2.0); Blood Gas Allen Test Pos; Blood Gas Sample Site Brachial, right; Blood Gas Sample Type Arterial; Oxygen Device BIPAP; PO2 ABG 92.8 mmHg (80.0-100.0); PO2 FiO2 Ratio Arterial Blood 309
[2024-02-29 04:35] LABS: Basophils % 0.5 %; Eosinophils # 0.1 10^3/uL (0.0-0.8); Eosinophils % 1.9 %; Hematocrit 29.2 % (36-47); Lymphocytes % 17.3 %; Mean Corpuscular HGB Conc 30.8 g/dL (30-55); Mean Corpuscular Volume 97.3 fl (85-98); Mean Platelet Volume 9.5 fL (7.4-10.4); Monocytes # 0.4 10^3/uL (0.2-0.9); Monocytes % 7.6 %; Neutrophils # 4.08 10^3/uL (1.8-7.7); Neutrophils % 72.3 %; Nucleated Red Blood Cells % 0 %; Platelet Count 252 10^3/cmm (157-399); Red Cell Distribution Width 15.9 % (12.1-15.1); White Blood Count 5.65 10^3/uL (3.29-11.43)
--- NOTE | 2024-02-29 04:48 | ECG_ITS ---
[facility] Date: 2024-02-29 Pat Name: Dennise Funes Department: Room: ICU11 Gender: Female Dough Machine Operator: : 1955 Requested By: Carly Zuleta Order Number: [id number] Evgeny MD: Iftikhar Bradley M.D. Measurements Intervals [place] Rate: 73 P: 61 MA: 189 QRS: 38 QRSD: 156 T: 117 QT: 451 QTc: 499 Interpretive Statements SINUS RHYTHM LEFT BUNDLE BRANCH BLOCK [120+ ms QRS DURATION, 80+ ms Q/S IN V1/V2, 85+ ms R IN I/aVL/V5/V6] Compared to ECG 02/29/2024 01:53:29 Left bundle-branch block now present Intraventricular conduction delay no longer present Electronically Signed On 03-01-2024 00:59:20 CDT by Iftikhar Bradley M.D. [id number]
[2024-02-29 05:02] LABS: Troponin 5 6HR 26.39 ng/L (0-10)
[2024-02-29 05:05] LABS: Troponin 5 6HR Delta -11.61 ng/L (0-12)
[2024-02-29 05:13] LABS: Blood Urea Nitrogen 22 mg/dL (8-23); Carbon Dioxide 25 mmol/L (22-29); Chloride 102 mmol/L (98-107); Creatinine Clr Calc Pharmacy 68.3278; Glomerular Filtration Rate 62.5 mL/min (90-130); Glucose 126 mg/dL (65-115); Osmolality Calculated 291 mOsm/kg (285-295); Sodium 138 mmol/L (136-145)
[2024-02-29 05:19] LABS: Anion Gap 15.8 (5-19); Potassium 4.8 mmol/L (3.5-5.1)
[2024-02-29] MEDS: pantoprazole 40 mg SDV IVP ×2 (09:04→16:42)
[2024-02-29] MEDS: duloxetine 30 mg Capsule PO (09:04)
[2024-02-29] MEDS: metoprolol tartrate 25 mg Tablet 12.5 MG PO ×2 (09:04→16:42)
--- NOTE | 2024-02-29 09:29 | PC.SOCIAL ---
IMM Update Pg. 2 of IMM updated. Copy provided at bedside. Initialed, dated, and timed copy in chart.
--- NOTE | 2024-02-29 11:24 | PC.SLP ---
Unable to assess swallowing, as the patient is n.p.o. for a procedure later today.
[2024-02-29] MEDS: albuterol 2.5 mg/3 mL Neb INHALATION (11:28)
--- NOTE | 2024-02-29 11:45 | P.PN_ITS ---
Subjective 2 Subjective: Hemoglobin remained stable Patient is much more awake and alert Plan for EGD today Hopefully can be able to discharge by tomorrow back to snf and outpatient follow-up on biopsy report However speech therapy still pending Vitals/I&O/Wt Last Vital Signs Temp 97.6 F 02/29/24 04:03 Pulse 72 02/29/24 11:28 Resp 18 02/29/24 11:28 BP 103/41 02/29/24 10:30 Pulse Ox 99 02/29/24 11:28 O2 Del Method Nasal Cannula 02/29/24 11:28 O2 Flow Rate 2 02/29/24 11:28 FiO2 30 02/29/24 04:00 02/28/24 02/29/24 02/29/24 22:59 06:59 14:59 Intake Total 998.833 / 1810.083 Output Total 1200 / 2700 1950 / 4650 Balance -201.167 / -889.917 -1950 / -2839.917 Weight last 48 hrs Weight 96 kg Weight 99.79 kg Weight 100 kg Weight 100.698 kg Physical Exam 2 Narrative: pleasant and cooperative GCS 15 Back to her baseline Hemodynamically stable currently on 2 L nasal cannula Able to carry out decent conversation Nonfocal neuroexam Urinary Catheter Management: Stewart: Cath Placed During This Visit: yes Reason for Continuing Indwelling Catheter: Accurate Measurement of Urinary Output in Critically Ill Patients Urinary Catheter Date of Insertion: 02/28/24 Urinary Catheter Time of Insertion: 14:11 Data 02/29/24 04:28 02/29/24 04:28 Micro: Microbiology 02/28/24 04:00 Urine Culture - Preliminary Urine,Clean Catch Yeast species 02/27/24 19:42 Blood Culture - Preliminary Blood Staphylococcus epidermidis 02/27/24 19:40 Blood Culture - Preliminary Blood NEGATIVE TO DATE A&P Assessment and plan (1) GI bleeding: (2) REINA (acute kidney injury): (3) Opiate or related narcotic overdose: (4) Chronic narcotic use: (5) Acute encephalopathy: (6) Pneumonia: (7) Metabolic acidosis: (8) Hypotension: Plan Patient is n.p.o. No need of blood transfusion hemoglobin remained stable, blood pressure has been stable as well, Levophed has been turned off Hyponatremia Sodium has improved No sign of stroke Hypercapnia improved Patient recently had an angiogram which was unremarkable Going going for EGD Opioid-induced respiratory depression causing hypercapnia Hypercapnia improved Acute kidney injury:Significant improvement of creatinine do not give DVT prophylaxis: SCDs only. Anticoagulation contraindicated due to GI bleed Full code Attestations 2 Medical Necessity Statement*: continue medical management Diagnoses GI bleeding K92.2 REINA (acute kidney injury) N17.9 Opiate or related narcotic overdose T40.601A Chronic narcotic use F11.90 Acute encephalopathy G93.40 Pneumonia J18.9 Metabolic acidosis E87.20 Hypotension I95.9
--- NOTE | 2024-02-29 12:40 | P.ANESASSM_ITS ---
Pre-Anesthetic Assessment Height/Weight: Height 5 ft 3 in Weight 211 lb 10.3 oz Temp Pulse Resp BP Pulse Ox O2 Del Method O2 Flow Rate 97.6 F 72 18 103/41 99 Nasal Cannula 2 02/29/24 04:03 02/29/24 11:28 02/29/24 11:28 02/29/24 10:30 02/29/24 11:28 02/29/24 11:28 02/29/24 11:28 FiO2 30 02/29/24 04:00 Preop Diagnosis: Hematic emesis Operation Date: 02/29/24 13:00 Proposed Procedures p EGD(Not Applicable) - Malcom Abreu, DO Was Beta Ruthie taken within 24 hours: N/A Was Clonidine taken within 24 hours: N/A Social No alcohol and No tobacco Exam alert, oriented x 3, clear to auscultation bilaterally and regular rate & rhythm Airway Submandibular: within normal limits Cervical ROM: within normal limits Mallampati: Class III Comments: Comments: Full bottom teeth, no upper teeth Anesthetic Plan ASA status: 4 Anesthesia: MAC Other: Patient with coffee brown emesis needing EGD. 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 Hospitalized in February for COVID, UTI and elevated troponins Stress test positive at that time and patient had a pramod Yassine angiogram which did not reveal any obstructive CAD Admitted 02/27/2024 for altered mentation/encephalopathy. Patient currently has sepsis, pneumonia with REINA Patient is on chronic opioids, required Narcan x 2 during hospitalization Patient was placed on BiPAP yesterday, currently on 2 L nasal cannula Labs 02/29/2024 reviewed, hemoglobin 9.0, WBC 5.6, sodium 138, K+ 4.8 ABG showing pH 7.29, pCO2 56, HCO3 27 EKG today showing sinus rhythm with left BBB Plan for MAC anesthesia with possible conversion to general if necessary Medications/Allergies Home Medications Medication Instructions Recorded Confirmed Last Taken Type nitroglycerin 0.4 mg sublingual 0.4 mg sublingual Q5M PRN Chest 04/30/22 02/28/24 Unknown History tablet (Nitrostat) Pain aspirin 81 mg chewable tablet 81 mg PO QAM 07/10/22 02/28/24 02/17/24 08:00 History cyanocobalamin (vitamin B-12) 500 500 mcg PO DAILY 07/10/22 02/28/24 02/17/24 History mcg tablet (Vitamin B-12) Compression Supporting Hose #1 ea 05/30/23 02/28/24 Unknown Rx escitalopram oxalate 20 mg tablet 20 mg PO DAILY #90 tabs 08/09/23 02/28/24 02/17/24 Rx metoprolol tartrate 25 mg tablet 12.5 mg PO BID 09/21/23 02/28/24 02/17/24 History ondansetron 4 mg disintegrating 4 mg PO Q6H PRN nausea and 09/21/23 02/28/24 11/02/23 Rx tablet vomiting #14 tabs tamsulosin 0.4 mg capsule 0.4 mg PO BID #60 caps 11/08/23 02/28/24 02/17/24 Rx minocycline 100 mg tablet 100 mg PO DAILY 10 days #10 tabs 01/19/24 02/28/24 02/17/24 Rx lubiprostone 24 mcg capsule 24 mcg PO BID #60 caps 01/23/24 02/28/24 02/17/24 Rx albuterol sulfate 2.5 mg/3 mL 2.5 mg (3 mL) inhalation QID PRN 01/30/24 02/28/24 02/13/24 Rx (0.083 %) solution for nebulization shortness of breath or wheezing #90 mL albuterol sulfate 90 mcg/actuation 1 inh inhalation QID PRN shortness 01/30/24 02/28/24 02/13/24 Rx aerosol inhaler of breath or wheezing #8.5 grams duloxetine 30 mg capsule,delayed 30 mg PO DAILY #90 caps 01/30/24 02/28/24 02/17/24 Rx release morphine 100 mg tablet,extended 100 mg PO BID pain 30 days #60 tabs 02/08/24 02/28/24 02/17/24 Rx release oxycodone 20 mg tablet 20 mg PO Q6H PRN pain 30 days #120 02/08/24 02/28/24 02/17/24 08:00 Rx tabs chlorthalidone 50 mg tablet 50 mg PO DAILY #20 tabs 02/13/24 02/28/24 02/17/24 08:00 Rx gabapentin 600 mg tablet 600 mg PO BID 02/14/24 02/28/2424 History ivosidenib 250 mg tablet (Tibsovo) 500 mg PO DAILY 02/14/24 02/28/24 02/17/24 History methocarbamol 500 mg tablet 1,000 mg PO Q8H PRN Spasms 02/14/24 02/28/24 02/13/24 History omeprazole 40 mg capsule,delayed 40 mg PO DAILY 02/14/24 02/28/24 02/17/24 History release ciprofloxacin HCl 500 mg tablet 500 mg PO Q12H #14 tabs 02/23/24 02/28/24 Unknown Rx (Cipro) lisinopril 20 mg tablet 20 mg PO DAILY #30 tabs 02/23/24 02/28/24 Unknown Rx sennosides 8.6 mg-docusate sodium 1 tab-cap PO DAILY #30 tabs 02/23/24 02/28/24 Unknown Rx 50 mg tablet (Senna-Time S) Allergies Allergy/AdvReac Type Severity Reaction Status Date / Time phenytoin [From Dilantin] Allergy Mild Rash Verified 02/13/24 14:19 Current Medications Generic Name Dose Route Start Last Admin Trade Name Freq PRN Reason Stop Dose Admin Albuterol Sulfate 2.5 mg 02/27/24 23:02 02/29/24 11:28 Albuterol 2.5 Mg/3 Ml Neb INHALATION 2.5 mg QID PRN Administration shortness of breath or wheezing Duloxetine HCl 30 mg 02/28/24 09:00 02/29/24 09:04 Duloxetine 30 Mg Capsule PO 30 mg DAILY GILMA Administration Gabapentin 600 mg 02/28/24 00:00 02/29/24 09:28 Gabapentin 300 Mg Capsule PO Not Given BID GILMA Norepinephrine Bitartrate 4 mg in 250 mls @ 0 mls/hr 02/28/24 01:00 02/28/24 23:59 Levophed IV 4 mcg/min .Q0M GILMA 15 mls/hr Administration Protocol Per Protocol Meropenem 500 mg 02/28/24 02:30 02/29/24 03:50 Meropenem 500 Mg Sdv IVP 500 mg Q12H GILMA Administration Protocol Metoprolol Tartrate 12.5 mg 02/28/24 18:00 02/29/24 09:04 Metoprolol Tartrate 25 Mg Tablet PO 12.5 mg BID GILMA Administration Morphine Sulfate 100 mg 02/28/24 18:00 02/29/24 09:29 Morphine Er (12 Hr) 100 Mg Tablet PO Not Given BID GILMA Ondansetron HCl 4 mg 02/27/24 23:09 02/28/24 21:39 Ondansetron 2 Mg/Ml Sdv 2 Ml IVP 4 mg Q8H PRN Administration vomiting, or N/V if npo Pantoprazole Sodium 40 mg 02/28/24 09:00 02/29/24 09:04 Pantoprazole 40 Mg Sdv IVP 40 mg BID GILMA Administration Sucralfate 1 gm 02/28/24 21:00 02/29/24 11:59 Sucralfate 1 Gm/10 Ml Oral Liq Udc PO Not Given AC&BEDTIME GILMA PFSH Anesthesia Medical History Abnormal stress test Chronic indwelling Stewart catheter Elevated LFTs Elevated troponin Fall Weakness Encephalopathy Urinary tract infection COVID-19 Viral upper respiratory tract infection with cough Lower extremity edema REINA (acute kidney injury) Oxygen dependent COPD (chronic obstructive pulmonary disease) Depression Heart failure with preserved ejection fraction YOLY on CPAP Anxiety and depression CAD (coronary artery disease) Complete rotator cuff tear of left shoulder Primary osteoarthritis, left shoulder Chronic wound infection of abdomen Weakness of left shoulder Cancer related pain Nausea and vomiting Pneumonia Essential hypertension Degenerative arthritis Chronic pain of right knee Chronic narcotic use History of nonmelanoma skin cancer 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 Bean Family History Mother Family history of premature coronary artery disease Hypertension Brother Cancer Hypertension Sister Cancer Father Family history of premature coronary artery disease Hypertension Denies family history of Diabetes CAD (coronary artery disease) Clotting disorder Dementia Hyperlipidemia Psychiatric illness Chronic kidney disease (CKD) Suicide Anesthesia complication Bleeding disorder Lung disease Stroke Social History Smoking and tobacco/nicotine status: former use of tobacco/nicotine Quit status (tobacco/nicotine): has quit using Year quit tobacco: 2016 Former quit date comment: 2ppd x 36 years Second hand smoke exposure: No Alcohol intake: never Substance/Drug Use: never Adopted: No Caregiver/support person: Yes Lives independently: Yes Marital status: Single Current occupational status: employed 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 Data Anesthesia 02/29/24 04:28 02/29/24 04:28 Short CBC 02/27/24 02/27/24 02/28/24 Range/Units 17:32 19:40 02:00 WBC 16.76 H 8.47 (3.29-11.43) 10^3/uL Hgb 10.30 L 9.50 L 8.80 L (11.27-16.99) g/dL Hct 33.1 L 31.0 L 28.2 L (36-47) % MCV 96.8 96.9 (85-98) fl Plt Count 280 206 (157-399) 10^3/cmm Neut % (Auto) 84.6 79.6 % Neut # (Auto) 14.16 H 6.75 (1.8-7.7) 10^3/uL 02/28/24 02/29/24 Range/Units 09:32 04:28 WBC 5.65 (3.29-11.43) 10^3/uL Hgb 10.40 L 9.00 L (11.27-16.99) g/dL Hct 35.5 L 29.2 L (36-47) % MCV 97.3 (85-98) fl Plt Count 252 (157-399) 10^3/cmm Neut % (Auto) 72.3 % Neut # (Auto) 4.08 (1.8-7.7) 10^3/uL BMP 02/27/24 02/28/24 02/29/24 17:32 02:00 04:28 Sodium 128 L 128 L 138 Potassium 4.0 4.3 4.8 Chloride 93 L 96 L 102 Carbon Dioxide 21 L 22 25 BUN 47 H 46 H 22 Creatinine 4.3 H 4.2 H 0.9 Glucose 137 H 109 126 H Calcium 7.9 L 7.3 L 8.0 L Cardiac Enzymes 02/27/24 02/28/24 02/29/24 Range/Units 17:32 22:38 00:30 Troponin T 5th Gen ng/L 38 H (0-10) ng/L Troponin T 120 Minute 31.33 H (0-10) ng/L Delta Troponin T -6.67 L (0-10) ABS# Troponin T Hi Sens 6Hr (0-10) ng/L Troponin T Hi Sens 6Hr Delta (0-12) ng/L NT-Pro-B Natriuret Pep 326 H (0-125) pg/mL 02/29/24 Range/Units 04:28 Troponin T 5th Gen ng/L (0-10) ng/L Troponin T 120 Minute (0-10) ng/L Delta Troponin T (0-10) ABS# Troponin T Hi Sens 6Hr 26.39 H (0-10) ng/L Troponin T Hi Sens 6Hr Delta -11.61 L (0-12) ng/L NT-Pro-B Natriuret Pep (0-125) pg/mL Liver Function 02/27/24 02/28/24 Range/Units 17:32 02:00 Total Bilirubin 0.5 0.4 (0.15-1.2) mg/dL AST 19 17 (0-32) U/L ALT 27 22 (0-33) U/L Alkaline Phosphatase 135 H 121 H (35-105) U/L Albumin 3.5 3.1 L (3.5-5.2) g/dL Urine 02/28/24 Range/Units 04:00 Urine Color Yellow (Yellow) Urine Appearance Cloudy A (CLEAR) Urine pH 5.0 (5-7) Ur Specific [place] 1.023 (1.005-1.030) Urine Protein 1+ A (Negative) Urine Glucose (UA) Negative (Normal) Urine Ketones Negative (Negative) Urine Nitrate Negative (Negative) Urine Bilirubin Negative (Negative) Ur Leukocyte Esterase 1+ A (Negative) Urine RBC 51-100 H (0-2) /hpf Urine WBC 21-50 H (0-5) /hpf Blood Bank 02/27/24 18:43 Blood Type A Positive Rho(D) Type Rh positive Antibody Screen Negative Coags 02/27/24 17:32 PT 13.80 INR 1.02 ABG 02/27/24 02/28/24 02/28/24 19:31 01:40 09:38 Specimen Type Arterial Arterial Arterial Sample Site Brachial, left Brachial, right Radial, left ABG pH 7.19 L 7.23 L 7.15 L* ABG pCO2 57.6 H 50.7 H 66.1 H* ABG pO2 63.4 L 75.0 L 75.7 L ABG PO2/FiO2 Ratio 176 189 ABG HCO3 22.2 21.2 L 23.0 ABG O2 Saturation 94.1 92.3 ABG Base Excess -6.1 L -6.3 L -6.3 L A-a O2 Gradient 1.7 L 17.1 H O2 Delivery Device Nc Nc Nc O2 Liters/Min 4.0 4.0 5.0 FiO2 36.0 40.0 PEEP 02/28/24 02/29/24 14:28 04:20 Specimen Type Arterial Arterial Sample Site Brachial, left Brachial, right ABG pH 7.25 L 7.29 L ABG pCO2 53.0 H 56.5 H ABG pO2 66.7 L 92.8 ABG PO2/FiO2 Ratio 208 309 ABG HCO3 23.0 27.0 H ABG O2 Saturation ABG Base Excess -4.4 L -0.2 A-a O2 Gradient O2 Delivery Device Nc Bipap O2 Liters/Min 3.0 FiO2 32.0 30.0 PEEP 8.0 Microbiology 02/28/24 04:00 Urine Culture - Preliminary Urine,Clean Catch Yeast species 02/27/24 19:42 Blood Culture - Preliminary Blood Staphylococcus epidermidis 02/27/24 19:40 Blood Culture - Preliminary Blood NEGATIVE TO DATE Cardiac Studies: 2 Echocardiogram 02/18/24 Echocardiogram Ultrasound 11/19/22 Sestamibi Stress Test (Cardiology) 02/19
--- NOTE | 2024-02-29 14:27 | P.PN_ITS ---
Vitals/I&O/Wt Last Vital Signs Temp 97.6 F 02/29/24 04:03 Pulse 72 02/29/24 11:28 Resp 18 02/29/24 11:28 BP 103/41 02/29/24 10:30 Pulse Ox 99 02/29/24 11:28 O2 Del Method Nasal Cannula 02/29/24 11:28 O2 Flow Rate 2 02/29/24 11:28 FiO2 30 02/29/24 04:00 02/28/24 02/29/24 02/29/24 22:59 06:59 14:59 Intake Total 998.833 / 1810.083 Output Total 1200 / 2700 1950 / 4650 Balance -201.167 / -889.917 -1950 / -2839.917 Weight last 48 hrs Weight 211 lb 10.3 oz Weight 220 lb Weight 220 lb 7.396 oz Weight 222 lb Physical Exam 2 Urinary Catheter Management: Stewart: Cath Placed During This Visit: yes Reason for Continuing Indwelling Catheter: Accurate Measurement of Urinary Output in Critically Ill Patients Urinary Catheter Date of Insertion: 02/28/24 Urinary Catheter Time of Insertion: 14:11 Data 02/29/24 04:28 02/29/24 04:28 Micro: Microbiology 02/28/24 04:00 Urine Culture - Preliminary Urine,Clean Catch Yeast species 02/27/24 19:42 Blood Culture - Preliminary Blood Staphylococcus epidermidis 02/27/24 19:40 Blood Culture - Preliminary Blood NEGATIVE TO DATE A&P Assessment and plan (1) GI bleeding: (2) Vomiting: (3) Right inguinal hernia: (4) Constipation: Plan Protonix and sucralfate EGD The risks and benefits of the procedure, including bleeding, infection, intestinal perforation requiring surgery, missed lesion were explained to the patient. The patient is understanding of the risks and wishes to proceed. Consent was obtained from the patient's daughter No acute surgical intervention regarding her right inguinal hernia Medical management per hospitalist Attestations 2 Medical Necessity Statement*: Per primary Coding Level of Care Code Acute Code for Chg Fwd Diagnoses GI bleeding K92.2 Vomiting R11.10 Right inguinal hernia K40.90 Constipation K59.00
--- NOTE | 2024-02-29 14:50 | ANE.PACU2 ---
Inpatient post-anesthesia follow up: Airway intact: Yes Vital signs: Temperature 97.6 F Pulse Rate 72 Respiratory Rate 18 Blood Pressure 103/41 Pulse Oximetry 99 Oxygen Delivery Me thod Nasal Cannula Oxygen Flow Rate 2 Fraction of Inspir ed Oxygen 30 Hydration adequate: Yes Nausea and vomiting: No Pain level: 1 Mental status: Baseline
[2024-02-29] MEDS: gabapentin 300 mg Capsule 600 MG PO (16:42)
[2024-02-29] MEDS: sucralfate 1 gm/10 mL Oral Liq UDC PO ×2 (16:43→21:04)
--- NOTE | 2024-02-29 22:29 | PC.NURSE ---
Patient transfer Patient transferred to [facility] room 255-2 at 22:15. Transferred on 2 L supplemental O2 via nasal cannula. [facility] staff at bedside on arrival.
[2024-02-29] MEDS: acetaminophen 325 mg Tablet 650 MG PO (23:58)
[2024-03-01] VITALS (7 sets, daily range): BP systolic 144–180; BP diastolic 75–79; PULSE 70–91; RESP 14–18; TEMP 36.6–37; O2SAT 90–98
[2024-03-01] MEDS: ALPRAZolam 0.5 mg Tablet 0.25 MG PO (02:10)
[2024-03-01] MEDS: meropenem 500 mg SDV IVP (02:14)
[2024-03-01] MEDS: gabapentin 300 mg Capsule 600 MG PO (05:43)
--- NOTE | 2024-03-01 05:47 | PC.NURSE ---
patient haivng complaints of leg pain, dr gates ordered xanex 0.25mg po once, patient states it helped but her legs are still hurting. dr gates notified for a second time and she ordered for her to have her gabapentin that is scheduled for 0900 for it to be given NOW. gabapentin 600mg po given per dr lloyd.
[2024-03-01] MEDS: ondansetron 2 mg/ML SDV 2 mL 4 MG IVP (05:53)
[2024-03-01] MEDS: sucralfate 1 gm/10 mL Oral Liq UDC PO (05:53)
[2024-03-01 06:16] LABS: Basophils % 0.7 %; Eosinophils # 0.1 10^3/uL (0.0-0.8); Hematocrit 30.1 % (36-47); Lymphocytes # 1.1 10^3/uL (0.8-4.8); Lymphocytes % 19.3 %; Mean Corpuscular HGB Conc 31.9 g/dL (30-55); Mean Corpuscular Hemoglobin 30.8 pg (27-33); Mean Corpuscular Volume 96.5 fl (85-98); Mean Platelet Volume 10.4 fL (7.4-10.4); Monocytes # 0.5 10^3/uL (0.2-0.9); Monocytes % 8.5 %; Neutrophils # 3.81 10^3/uL (1.8-7.7); Neutrophils % 69.3 %; Nucleated Red Blood Cells % 0 %; Platelet Count 263 10^3/cmm (157-399); Red Blood Count 3.12 10^6/uL (3.85-5.65); Red Cell Distribution Width 15.1 % (12.1-15.1)
[2024-03-01 06:34] LABS: Blood Urea Nitrogen 12 mg/dL (8-23); Calcium 8.8 mg/dL (8.5-10.5); Carbon Dioxide 32 mmol/L (22-29); Chloride 96 mmol/L (98-107); Creatinine Clr Calc Pharmacy 76.5391; Glomerular Filtration Rate 99.7 mL/min (90-130); Glucose 91 mg/dL (65-115); Osmolality Calculated 283 mOsm/kg (285-295); Sodium 137 mmol/L (136-145)
[2024-03-01] MEDS: morphine ER (12 HR) 100 mg Tablet PO (09:08)
[2024-03-01] MEDS: metoprolol tartrate 25 mg Tablet 12.5 MG PO (09:08)
[2024-03-01] MEDS: duloxetine 30 mg Capsule PO (09:08)
[2024-03-01] MEDS: pantoprazole 40 mg SDV IVP (09:08)
[2024-03-01] MEDS: meropenem 1,000 mg SDV 1000 MG IVP (09:18)
--- NOTE | 2024-03-01 09:41 | PM.DCS ---
Discharge Providers Date of Admission: 02/27/24 22:01 Date of Discharge: March 01, 2024 Attending Provider at Admission: Gabo Sigala MD Attending Provider at Discharge: Agustin Hernandez MD Primary Care Provider: Cyril Ramsey MD Diagnoses at Discharge Discharge Diagnosis (1) GI bleeding: Status: Acute (2) Vomiting: Status: Acute (3) Right inguinal hernia: Status: Acute (4) Constipation: Status: Acute Reason for Visit Reason for Visit: bloody vomit Hospital Course Hospital Course Dennise Funes is a 68 year old female with Hx of metastatic undifferentiated pleomorphic sarcoma, mets to lungs, s/p tumor debulking and removal occurred. 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 Jo at [facility] for neurogenic bladder most recent of discharge from the hospital after management of UTI, patient went for coronary angiogram which was unremarkable, she presented back with hematemesis, EGD was requested which showed esophagitis, she will be discharged on Protonix and sucralfate. Please note during this hospitalization she was monitored in ICU because of opioid overdose related hypoventilation, she was hypoxic and hypercapnic required BiPAP and multiple doses of Narcan. After discussing with her daughter we found out that she has tendency to take a lot of short acting opioid such as oxycodone, if she sticks to her regimen of morphine twice a day regimen she does well, at the time of discharge I will only resume her morphine scheduled dose to avoid withdrawal, she may resume her duloxetine and gabapentin for now. Hemoglobin remained stable we did not give her any unit of blood. Patient is full code. Her daughter is a nurse. We will discharge her back to assisted. Resumed her diet,. Physical Exam Narrative: Pleasant and cooperative Nonfocal neuroexam No active bleeding Hemodynamically stable Complaining of restless legs Urinary Catheter Management: Stewart: Cath Placed During This Visit: yes Reason for Continuing Indwelling Catheter: Chronic Indwelling Urinary Catheter on Admission Urinary Catheter Date of Insertion: 02/28/24 Urinary Catheter Time of Insertion: 14:11 Discharge Data Studies Completed and Pending Completed Studies During Hospitalization Category Date Time Status CT abdomen pelvis w con* [id number] Stat Cat Scan 02/27/24 17:28 Completed CXRP [XR chest 1V portable [id number]] Stat Exams 02/27/24 19:22 Completed Pending at discharge Category Date Time Status Blood Culture Stat Lab 02/27/24 19:42 Results Urine Culture Routine Lab 02/28/24 04:00 Results Pathology: Surgical [PTH] Routine Pth 02/29/24 14:50 Received Radiology Impressions Abdomen/Pelvis CT 02/27/24 17:28 IMPRESSION: 1. There is mucosal thickening of the distal esophagus and gastroesophageal junction consistent with esophagitis/gastritis versus neoplasm. Distal esophagus is dilated and fluid-filled. 2. Consolidation in the posterior aspect of the left lung base may represent atelectatic change. Pneumonia cannot be excluded. 3. There is severe narrowing of the infrarenal abdominal aorta by calcified plaque. 4. There is a right inguinal hernia containing small and large bowel loops without evidence for strangulation or obstruction. Chest X-Ray 02/27/24 19:22 IMPRESSION: Nonspecific left perihilar opacity. This was seen on the prior CT scan as well. Laboratory Results WBC 5.50 10^3/uL (3.29-11.43) 03/01/24 04:35 RBC 3.12 10^6/uL (3.85-5.65) L 03/01/24 04:35 Hgb 9.60 g/dL (11.27-16.99) L 03/01/24 04:35 Hct 30.1 % (36-47) L 03/01/24 04:35 MCV 96.5 fl (85-98) 03/01/24 04:35 MCH 30.8 pg (27-33) 03/01/24 04:35 MCHC 31.9 g/dL (30-55) 03/01/24 04:35 RDW 15.1 % (12.1-15.1) 03/01/24 04:35 Plt Count 263 10^3/cmm (157-399) 03/01/24 04:35 MPV 10.4 fL (7.4-10.4) 03/01/24 04:35 Neut % (Auto) 69.3 % 03/01/24 04:35 Lymph % (Auto) 19.3 % 03/01/24 04:35 Levy % (Auto) 8.5 % 03/01/24 04:35 Eos % (Auto) 2.0 % 03/01/24 04:35 Baso % (Auto) 0.7 % 03/01/24 04:35 Neut # (Auto) 3.81 10^3/uL (1.8-7.7) 03/01/24 04:35 Lymph # (Auto) 1.1 10^3/uL (0.8-4.8) 03/01/24 04:35 Levy # (Auto) 0.5 10^3/uL (0.2-0.9) 03/01/24 04:35 Eos # (Auto) 0.1 10^3/uL (0.0-0.8) 03/01/24 04:35 Baso # (Auto) 0.0 10^3/uL (0.0-0.1) 03/01/24 04:35 Nucleated RBC % (auto) 0 % 03/01/24 04:35 Nucleated RBCs # 0.0 /100WBC 03/01/24 04:35 PT 13.80 SECONDS (12.1-14.9) 02/27/24 17:32 INR 1.02 (0.8-1.2) 02/27/24 17:32 Specimen Type Arterial 02/29/24 04:20 Sample Site Brachial, right 02/29/24 04:20 ABG pH 7.29 (7.35-7.45) L 02/29/24 04:20 ABG pCO2 56.5 mmHg (35-45) H 02/29/24 04:20 ABG pO2 92.8 mmHg (80.0-100.0) 02/29/24 04:20 ABG PO2/FiO2 Ratio 309 02/29/24 04:20 ABG HCO3 27.0 mmol/L (22-26) H 02/29/24 04:20 ABG O2 Saturation 92.3 02/28/24 09:38 ABG Base Excess -0.2 mmol/L (-2.0-2.0) 02/29/24 04:20 Dexter Test Pos 02/29/24 04:20 A-a O2 Gradient 17.1 mmHg (5-10) H 02/28/24 09:38 Hematocrit 29.0 % (37-47) L 02/29/24 04:20 Hgb O2 Saturation 89.9 % (95-100) L 02/28/24 09:38 Carboxyhemoglobin 1.2 %THgb (0.4-20.1) 02/28/24 09:38 Methemoglobin 1.4 % (0.4-1.5) 02/28/24 09:38 Total Hemoglobin 9.9 g/dL (12-16) L 02/28/24 09:38 Sodium 137.0 mmol/L (131-143) 02/28/24 09:38 Potassium 3.9 mmol/L (3.5-5.0) 02/28/24 09:38 Glucose 130.0 mg/dL (70-115) H 02/28/24 09:38 Ionized Calcium 1.1 mmol/L (1.1-1.4) 02/28/24 09:38 O2 Delivery Device Bipap 02/29/24 04:20 O2 Liters/Min 3.0 % 02/28/24 14:28 FiO2 30.0 % 02/29/24 04:20 PEEP 8.0 cmH20 02/29/24 04:20 Music Researcher ID [email or web address] 02/29/24 04:20 Sodium 137 mmol/L (136-145) 03/01/24 04:35 Potassium 4.0 mmol/L (3.5-5.1) 03/01/24 04:35 Chloride 96 mmol/L (98-107) L 03/01/24 04:35 Carbon Dioxide 32 mmol/L (22-29) H 03/01/24 04:35 Anion Gap 13.0 (5-19) 03/01/24 04:35 BUN 12 mg/dL (8-23) 03/01/24 04:35 Creatinine 0.6 mg/dL (0.5-0.9) 03/01/24 04:35 GFR Calculation 99.7 mL/min (90-130) 03/01/24 04:35 Glucose 91 mg/dL (65-115) 03/01/24 04:35 POC Glucose 137 mg/dL (70-110) H 02/27/24 20:02 Calculated Osmolality 283 mOsm/kg (285-295) L 03/01/24 04:35 Lactic Acid 1.0 mmol/L (0.5-2.2) 02/27/24 17:32 Calcium 8.8 mg/dL (8.5-10.5) 03/01/24 04:35 Phosphorus 6.7 mg/dL (2.5-4.5) H 02/28/24 02:00 Magnesium 1.5 mg/dL (1.7-2.3) L 02/28/24 02:00 Total Bilirubin 0.4 mg/dL (0.15-1.2) 02/28/24 02:00 AST 17 U/L (0-32) 02/28/24 02:00 ALT 22 U/L (0-33) 02/28/24 02:00 Alkaline Phosphatase 121 U/L (35-105) H 02/28/24 02:00 Troponin T 5th Gen ng/L 38 ng/L (0-10) H 02/28/24 22:38 Troponin T 120 Minute 31.33 ng/L (0-10) H 02/29/24 00:30 Delta Troponin T -6.67 ABS# (0-10) L 02/29/24 00:30 Troponin T Hi Sens 6Hr 26.39 ng/L (0-10) H 02/29/24 04:28 Troponin T Hi Sens 6Hr Delta -11.61 ng/L (0-12) L 02/29/24 04:28 NT-Pro-B Natriuret Pep 326 pg/mL (0-125) H 02/27/24 17:32 Total Protein 5.6 g/dL (6.6-8.7) L 02/28/24 02:00 Albumin 3.1 g/dL (3.5-5.2) L 02/28/24 02:00 Globulin 2.5 g/dL (1.3-4.6) 02/28/24 02:00 Urine Color Yellow (Yellow) 02/28/24 04:00 Urine Appearance Cloudy (CLEAR) A 02/28/24 04:00 Urine pH 5.0 (5-7) 02/28/24 04:00 Ur Specific [place] 1.023 (1.005-1.030) 02/28/24 04:00 Urine Protein 1+ (Negative) A 02/28/24 04:00 Urine Glucose (UA) Negative (Normal) 02/28/24 04:00 Urine Ketones Negative (Negative) 02/28/24 04:00 Urine Blood 2+ (Negative) A 02/28/24 04:00 Urine Nitrate Negative (Negative) 02/28/24 04:00 Urine Bilirubin Negative (Negative) 02/28/24 04:00 Urine Urobilinogen 1.0 mg/dL (Negative) 02/28/24 04:00 Ur Leukocyte Esterase 1+ (Negative) A 02/28/24 04:00 Urine RBC 51-100 /hpf (0-2) H 02/28/24 04:00 Urine WBC 21-50 /hpf (0-5) H 02/28/24 04:00 Ur Squamous Epith Cells 0-5 /hpf (0-5) 02/28/24 04:00 Amorphous Sediment Not Reportable 02/28/24 04:00 Urine Bacteria None seen /hpf (NONE) 02/28/24 04:00 Hyaline Casts 6.17 /lpf 02/28/24 04:00 Urine Mucus 2+ /hpf 02/28/24 04:00 Urine Yeast 3+ /hpf H 02/28/24 04:00 Ur Random Sodium 18 mmol/L 02/28/24 04:00 Ur Random Potassium 12 mmol/L 02/28/24 04:00 Ur Random Chloride 10 mmol/L 02/28/24 04:00 Nasal MRSA (PCR) Mrsa detected (Not Detecte) A 02/28/24 03:20 Blood Type A Positive 02/27/24 18:43 Rho(D) Type Rh positive 02/27/24 18:43 Antibody Screen Negative 02/27/24 18:43 Vitals Last Vital Signs Temp 97.8 F 03/01/24 08:01 Pulse 70 03/01/24 09:37 Resp 14 03/01/24 09:37 BP 161/77 03/01/24 08:01 Pulse Ox 93 03/01/24 09:37 O2 Del Method Room Air 03/01/24 09:37 O2 Flow Rate 1 03/01/24 08:01 FiO2 30 02/29/24 04:00 Discharge Plan Discharge Patient Disposition: Xfer SNF Condition: Stable Prescriptions: New sucralfate 100 mg/mL Suspension 1 g PO AC&BEDTIME 30 Days Qty: 420 0RF Continued tamsulosin 0.4 mg capsule 0.4 mg PO BID Qty: 60 3RF escitalopram oxalate 20 mg tablet 20 mg PO DAILY Qty: 90 1RF albuterol sulfate 2.5 mg /3 mL (0.083 %) solution for nebulization 2.5 mg inhalation QID PRN (Reason: shortness of breath or wheezing) Qty: 90 2RF albuterol sulfate 90 mcg/actuation HFA aerosol inhaler 1 inh inhalation QID PRN (Reason: shortness of breath or wheezing) Qty: 8.5 1RF chlorthalidone 50 mg tablet 50 mg PO DAILY Qty: 20 0RF (DME) Compression Supporting Hose See Rx Instructions .Route .MEDSUPPLY Qty: 1 0RF Rx Instructions: As directed lubiprostone 24 mcg capsule 24 mcg PO BID Qty: 60 0RF duloxetine 30 mg capsule,delayed release(DR/EC) 30 mg PO DAILY Qty: 90 1RF morphine 100 mg tablet extended release 100 mg PO BID 30 Days Qty: 60 0RF nitroglycerin [Nitrostat] 0.4 mg Tablet, Sublingual 0.4 mg SUBLINGUAL Q5M PRN (Reason: Chest Pain) Rx Instructions: do not exceed 3 doses per episode cyanocobalamin (vitamin B-12) [Vitamin B-12] 500 mcg Tablet 500 mcg PO DAILY metoprolol tartrate 25 mg tablet 12.5 mg PO BID ondansetron 4 mg tablet,disintegrating 4 mg PO Q6H PRN (Reason: nausea and vomiting) Qty: 14 0RF methocarbamol 500 mg tablet 1,000 mg PO Q8H PRN (Reason: Spasms) gabapentin 600 mg tablet 600 mg PO BID Tibsovo 250 mg tablet 500 mg PO DAILY lisinopril 20 mg Tablet 20 mg PO DAILY Qty: 30 0RF sennosides-docusate sodium [Senna-Time S] 8.6-50 mg tablet 1 tab-cap PO DAILY Qty: 30 0RF ciprofloxacin HCl [Cipro] 500 mg tablet 500 mg PO Q12H Qty: 14 0RF Changed omeprazole 40 mg capsule,delayed release(DR/EC) 40 mg PO BIDWMEAL 84 Days Qty: 168 0RF Discontinued minocycline 100 mg tablet 100 mg PO DAILY 10 Days Qty: 10 0RF oxycodone 20 mg tablet 20 mg PO Q6H PRN (Reason: pain) 30 Days Qty: 120 0RF aspirin 81 mg Tablet,Chewable 81 mg PO QAM Discharge Orders: Discharge Order (Routine); Ordered 03/01/24 Ordered By: Agustin Hernandez Referrals: [facility] [Outside] Cyril Ramsey MD [Primary Care Provider] - Patient Instructions: GI Post Discharge Instructions w/ Anesthesia, Opioid Safety Discharge Attestations Time Spent in Discharge Care*: greater than 30 min Quality Metrics Clinical Quality Measures [ No reported AMI, CVA or VTE this stay] Coding Level of Care Code Acute Code for Chg Fwd Diagnoses GI bleeding K92.2 Vomiting R11.10 Right inguinal hernia K40.90 Constipation K59.00
[2024-03-01 11:03] LABS: SARS Covid-2 Antigen negative (Negative)
--- NOTE | 2024-03-01 11:27 | PC.NURSE ---
This nurse called report to ZACH Gardner at [facility] at 11:22am. D/C pending transportation to their facility. [facility] does not have a roll off driver at this time.
== END 2024-03-01 15:10 | disposition skilled nursing facility (03) | DRG 368 ==
LOC: ER 21:27 → ICU 22:02 → MEDSURG 02-29 22:26
PROVIDERS: Student in an Organized Health Care Education/Training Program; Surgery; Admitting Provider Student in an Organized Health Care Education/Training Program; Emergency Provider Emergency Medicine; PCP Family Medicine; Visit Provider Internal Medicine
PROC: 0DJ08ZZ Inspection of Upper Intestinal Tract, Via Natural or Artificial Opening Endoscopic (ICD-10-PCS; CPT 43235; principal; 2024-02-29 13:00)
DX: K20.91 Esophagitis, unspecified with bleeding (principal); G92.8 Other toxic encephalopathy; J18.9 Pneumonia, unspecified organism; C49.21 Malignant neoplasm of connective and soft tissue of right lower limb, including hip; C77.4 Secondary and unspecified malignant neoplasm of inguinal and lower limb lymph nodes; J44.0 Chronic obstructive pulmonary disease with (acute) lower respiratory infection; I50.32 Chronic diastolic (congestive) heart failure; N17.9 Acute kidney failure, unspecified; E87.4 Mixed disorder of acid-base balance; F32.A Depression, unspecified; I11.0 Hypertensive heart disease with heart failure; G47.33 Obstructive sleep apnea (adult) (pediatric); I25.10 Atherosclerotic heart disease of native coronary artery without angina pectoris; G89.3 Neoplasm related pain (acute) (chronic); G47.30 Sleep apnea, unspecified; K21.9 Gastro-esophageal reflux disease without esophagitis; Z96.643 Presence of artificial hip joint, bilateral; I27.20 Pulmonary hypertension, unspecified; T40.2X1A Poisoning by other opioids, accidental (unintentional), initial encounter; I95.9 Hypotension, unspecified; K59.00 Constipation, unspecified; K44.9 Diaphragmatic hernia without obstruction or gangrene; K40.90 Unilateral inguinal hernia, without obstruction or gangrene, not specified as recurrent; Z11.52 Encounter for screening for COVID-19; Z79.69 Long term (current) use of other immunomodulators and immunosuppressants; Z99.81 Dependence on supplemental oxygen; Z85.828 Personal history of other malignant neoplasm of skin; Z92.3 Personal history of irradiation; Z86.16 Personal history of COVID-19; Z87.440 Personal history of urinary (tract) infections; Z79.51 Long term (current) use of inhaled steroids; Z87.891 Personal history of nicotine dependence; Z79.891 Long term (current) use of opiate analgesic
CPT/HCPCS: 36415; 36416; 36591; 36600; 43239; 51702; 71045; 74177; 80048; 80051; 80053; 81001; 82330; 82436; 82803; 82805; 82962; 83605; 83735; 83880; 84100; 84133; 84300; 84484; 85014; 85018; 85025; 85610; 86850; 86900; 87040; 87077; 87086; 87106; 87150; 87186; 87205; 87426; 88305; 92507; 92523; 92526; 92610; 93005; 94640; 94660; 96365; 96367; 96374; 96375; 96376; 97163; 97165; 99285; J2185; J2310; J2405; J2470; J2543; J3370; J7030; J7050; J7613

== ENCOUNTER → 2024-03-12 15:00 | Outpatient (BNVA) | payer MEDICARE, MEDICAID, SELFPAY | PROVIDERS: PCP Family Medicine; Visit Provider Surgery | DX: Z09 Encounter for follow-up examination after completed treatment for conditions other than malignant neoplasm (principal); K22.10 Ulcer of esophagus without bleeding | CPT/HCPCS: 99204; 99214 ==

== ENCOUNTER 2024-03-15 12:51 | Oncology outpatient (recurring) (ONCR) | payer MEDICARE, MEDICAID, SELFPAY ==
[2024-03-15 13:42] LABS: Basophils % 0.5 %; Eosinophils # 0.1 10^3/uL (0.0-0.8); Eosinophils % 2.4 %; Hematocrit 30.2 % (36-47); Lymphocytes # 1.2 10^3/uL (0.8-4.8); Lymphocytes % 20.2 %; Mean Corpuscular HGB Conc 31.8 g/dL (30-55); Mean Corpuscular Hemoglobin 31.3 pg (27-33); Mean Corpuscular Volume 98.4 fl (85-98); Mean Platelet Volume 8.9 fL (7.4-10.4); Monocytes # 0.5 10^3/uL (0.2-0.9); Monocytes % 8.1 %; Neutrophils # 4.08 10^3/uL (1.8-7.7); Neutrophils % 68.6 %; Nucleated Red Blood Cells % 0 %; Platelet Count 167 10^3/cmm (157-399); Red Blood Count 3.07 10^6/uL (3.85-5.65); White Blood Count 5.94 10^3/uL (3.29-11.43)
[2024-03-15 14:00] LABS: Alanine Aminotransferase 14 U/L (0-33); Albumin Level 3.6 g/dL (3.5-5.2); Alkaline Phosphatase 136 U/L (35-105); Anion Gap 10.2 (5-19); Aspartate Amino Transferase 17 U/L (0-32); Blood Urea Nitrogen 15 mg/dL (8-23); Calcium 7.8 mg/dL (8.5-10.5); Carbon Dioxide 28 mmol/L (22-29); Chloride 100 mmol/L (98-107); Creatinine Clr Calc Pharmacy 75.6963; Globulin 2.3 g/dL (1.3-4.6); Glomerular Filtration Rate 99.7 mL/min (90-130); Glucose 152 mg/dL (65-115); Osmolality Calculated 282 mOsm/kg (285-295); Potassium 4.2 mmol/L (3.5-5.1); Sodium 134 mmol/L (136-145); Total Bilirubin 0.2 mg/dL (0.15-1.2); Total Protein 5.9 g/dL (6.6-8.7)
== END 2024-03-15 23:59 | disposition home or self-care (01) ==
PROVIDERS: Nurse Practitioner Family; PCP Family Medicine; Visit Provider Internal Medicine Medical Oncology
DX: Z53.9 Procedure and treatment not carried out, unspecified reason; C49.21 Malignant neoplasm of connective and soft tissue of right lower limb, including hip; D69.6 Thrombocytopenia, unspecified; R91.1 Solitary pulmonary nodule; Z85.828 Personal history of other malignant neoplasm of skin; Z79.899 Other long term (current) drug therapy; Z87.891 Personal history of nicotine dependence; Z92.3 Personal history of irradiation; Z79.69 Long term (current) use of other immunomodulators and immunosuppressants
CPT/HCPCS: 36591; 80053; 85025; 99214

== ENCOUNTER 2024-04-06 11:04 | Oncology outpatient (recurring) (ONCR) | payer MEDICARE, SELFPAY ==
--- NOTE | 2024-04-06 11:00 | CTR_ITS ---
PROCEDURE INFORMATION: Exam: CT Chest With Contrast; Diagnostic Exam date and time: 04/06/2024 11:33 AM Age: 68 years old Clinical indication: Condition or disease; Other: Lymphoma; Prior surgery; Surgery date: 6+ months; Surgery type: Port; Additional info: Surveillance TECHNIQUE: Imaging protocol: Diagnostic computed tomography of the chest with contrast. Radiation optimization: All CT scans at this facility use at least one of these dose optimization techniques: automated exposure control; mA and/or kV adjustment per patient size (includes targeted exams where dose is matched to clinical indication); or iterative reconstruction. Contrast material: OMNI 350; Contrast volume: 100 ml; Contrast route: INTRAVENOUS (IV); COMPARISON: CT angio chest PE protcl [id number] 02/19/2024 1:11 PM RADIATION DOSE METRICS: Total DLP (mGy-cm): 616.91 FINDINGS: Tubes, catheters and devices: Right-sided chest port catheter terminates within the right atrium. Lungs: Mild centrilobular emphysematous changes of the lungs. Mild dependent atelectasis. Stable appearance of 1.7 x 1.4 x 0.7 cm nodular opacity in the anterior left upper lobe (axial series 5, image 31; sagittal series 8, image 19). This appears unchanged compared to 02/19/2024 and to 11/16/2023, and remains increased in conspicuity compared to 06/30/2023. Stable appearance of irregular ground-glass opacity in the medial superior left upper lobe, measuring up to 2.5 cm (sagittal series 8, image 24; axial series 5, image 20). This appears present dating back to 07/10/2022 and is favored to represent chronic scarring. Pleural spaces: No pleural effusion. No pneumothorax. Heart: Heart is normal in size. No pericardial effusion. Lymph nodes: Stable small upper mediastinal lymph nodes. No distinct pathologically enlarged lymphadenopathy. Vasculature: Moderate scattered calcific atheromatous disease of the thoracic aorta. Bones/joints: No acute osseous findings. Soft tissues: Hernial mesh suture anchors present in the partially visualized upper ventral abdominal wall. CT/CT chest w con* [id number] IMPRESSION: 1. Stable appearance of 1.7 x 1.4 x 0.7 cm nodular opacity in the anterior left upper lobe (axial series 5, image 31; sagittal series 8, image 19). This appears unchanged compared to 02/19/2024 and to 11/16/2023, and remains increased in conspicuity compared to 06/30/2023. Differential remains unchanged, including scarring versus nodular metastasis. 2. Stable appearance of irregular ground-glass opacity in the medial superior left upper lobe, measuring up to 2.5 cm (sagittal series 8, image 24; axial series 5, image 20). This appears present dating back to 07/10/2022 and is favored to represent chronic scarring.
== END 2024-04-14 23:59 | disposition home or self-care (01) ==
LOC: RAD 14:33 → ONCMED 04-09 09:18
PROVIDERS: PCP Family Medicine; Visit Provider Nurse Practitioner Family
DX: C49.21 Malignant neoplasm of connective and soft tissue of right lower limb, including hip (principal); Z95.828 Presence of other vascular implants and grafts; Z79.899 Other long term (current) drug therapy; Z87.891 Personal history of nicotine dependence; Z92.3 Personal history of irradiation; Z79.69 Long term (current) use of other immunomodulators and immunosuppressants; R91.1 Solitary pulmonary nodule
CPT/HCPCS: 71260; Q9967

== ENCOUNTER → 2024-04-20 07:32 | Outpatient (BNVA) | payer MEDICARE, SELFPAY | PROVIDERS: PCP Family Medicine; Visit Provider Family Medicine | DX: R39.9 Unspecified symptoms and signs involving the genitourinary system (principal) | CPT/HCPCS: 81000 ==

== ENCOUNTER 2024-04-24 14:52 | Outpatient (CLI) | payer MEDICARE, SELFPAY ==
--- NOTE | 2024-04-24 15:00 | XR_ITS ---
WS: [id number] Exam: XR chest 2V* [id number] Date/Time of Exam: 04/24/2024 3:07 PM Reason For Exam: PRE OP TESTING/COPD Comparison 02/27/2024. Lungs are fully expanded and clear. Unremarkable cardiomediastinal silhouette. A RIGHT subclavian por t ends at the cavoatrial junction. No pleural effusions. Normal bony structures. XR/XR chest 2V* [id number] IMPRESSION: 1. No acute cardiopulmonary finding.
[2024-04-24 15:58] LABS: Basophils % 0.3 %; Eosinophils # 0.1 10^3/uL (0.0-0.8); Eosinophils % 1.5 %; Hematocrit 31.7 % (36-47); Lymphocytes # 1.7 10^3/uL (0.8-4.8); Lymphocytes % 24.9 %; Mean Corpuscular HGB Conc 31.5 g/dL (30-55); Mean Corpuscular Hemoglobin 29.9 pg (27-33); Mean Corpuscular Volume 94.9 fl (85-98); Mean Platelet Volume 9.6 fL (7.4-10.4); Monocytes # 0.8 10^3/uL (0.2-0.9); Monocytes % 10.9 %; Neutrophils # 4.24 10^3/uL (1.8-7.7); Neutrophils % 61.8 %; Nucleated Red Blood Cells % 0 %; Platelet Count 288 10^3/cmm (157-399); Red Blood Count 3.34 10^6/uL (3.85-5.65); Red Cell Distribution Width 14.8 % (12.1-15.1); White Blood Count 6.86 10^3/uL (3.29-11.43)
[2024-04-24 16:47] LABS: Anion Gap 13.9 (5-19); Blood Urea Nitrogen 35 mg/dL (8-23); Calcium 8.7 mg/dL (8.5-10.5); Carbon Dioxide 38 mmol/L (22-29); Chloride 91 mmol/L (98-107); Glomerular Filtration Rate 55.1 mL/min (90-130); Glucose 101 mg/dL (65-115); Osmolality Calculated 298 mOsm/kg (285-295); Sodium 140 mmol/L (136-145)
[2024-04-24 16:57] LABS: Potassium 2.9 mmol/L (3.5-5.1)
== END 2024-04-24 14:53 | disposition home or self-care (01) ==
LOC: RAD 14:54
PROVIDERS: PCP Family Medicine; Visit Provider Urology
DX: Z01.818 Encounter for other preprocedural examination (principal); I10 Essential (primary) hypertension; J44.9 Chronic obstructive pulmonary disease, unspecified
CPT/HCPCS: 71046; 80048; 85025

== ENCOUNTER → 2024-04-25 11:13 | Outpatient (BNVA) | payer MEDICARE, SELFPAY | PROVIDERS: PCP Family Medicine; Visit Provider Internal Medicine Cardiovascular Disease | DX: Z01.818 Encounter for other preprocedural examination (principal); I10 Essential (primary) hypertension; Z79.899 Other long term (current) drug therapy | CPT/HCPCS: 93005 ==

== ENCOUNTER 2024-04-30 08:31 | Oncology outpatient (recurring) (ONCR) | payer MEDICARE, SELFPAY ==
[2024-04-30 10:12] LABS: Anion Gap 16.4 (5-19); Blood Urea Nitrogen 20 mg/dL (8-23); Calcium 8.8 mg/dL (8.5-10.5); Carbon Dioxide 31 mmol/L (22-29); Chloride 100 mmol/L (98-107); Glomerular Filtration Rate 71.3 mL/min (90-130); Glucose 117 mg/dL (65-115); Osmolality Calculated 300 mOsm/kg (285-295); Potassium 4.4 mmol/L (3.5-5.1); Sodium 143 mmol/L (136-145)
== END 2024-05-15 23:59 | disposition home or self-care (01) ==
PROVIDERS: PCP Family Medicine; Visit Provider Nurse Practitioner Family
DX: C49.21 Malignant neoplasm of connective and soft tissue of right lower limb, including hip (principal); Z95.828 Presence of other vascular implants and grafts; Z79.899 Other long term (current) drug therapy; Z87.891 Personal history of nicotine dependence; Z92.3 Personal history of irradiation; Z79.69 Long term (current) use of other immunomodulators and immunosuppressants; R91.1 Solitary pulmonary nodule
CPT/HCPCS: 36591; 80048

== ENCOUNTER → 2024-05-14 10:37 | Outpatient (BNVA) | payer MEDICARE, SELFPAY | PROVIDERS: PCP Family Medicine; Visit Provider Nurse Practitioner Family | DX: I70.0 Atherosclerosis of aorta (principal); Z87.891 Personal history of nicotine dependence | CPT/HCPCS: 99214 ==

== ENCOUNTER 2024-06-14 12:50 | Oncology outpatient (recurring) (ONCR) | payer MEDICARE, SELFPAY ==
[2024-06-14 13:55] LABS: Basophils % 0.5 %; Eosinophils # 0.1 10^3/uL (0.0-0.8); Hematocrit 31.7 % (36-47); Lymphocytes # 1.3 10^3/uL (0.8-4.8); Lymphocytes % 21.6 %; Mean Corpuscular HGB Conc 29.7 g/dL (30-55); Mean Corpuscular Hemoglobin 27.5 pg (27-33); Mean Corpuscular Volume 92.7 fl (85-98); Mean Platelet Volume 9.4 fL (7.4-10.4); Monocytes # 0.5 10^3/uL (0.2-0.9); Monocytes % 8.4 %; Neutrophils # 4.21 10^3/uL (1.8-7.7); Nucleated Red Blood Cells % 0 %; Platelet Count 271 10^3/cmm (157-399); Red Blood Count 3.42 10^6/uL (3.85-5.65); Red Cell Distribution Width 15.4 % (12.1-15.1); White Blood Count 6.19 10^3/uL (3.29-11.43)
[2024-06-14 14:12] LABS: Alanine Aminotransferase 9 U/L (0-33); Albumin Level 3.6 g/dL (3.5-5.2); Alkaline Phosphatase 118 U/L (35-105); Anion Gap 13.4 (5-19); Aspartate Amino Transferase 20 U/L (0-32); Blood Urea Nitrogen 14 mg/dL (8-23); Calcium 7.4 mg/dL (8.5-10.5); Carbon Dioxide 31 mmol/L (22-29); Chloride 97 mmol/L (98-107); Creatinine Clr Calc Pharmacy 75.8158; Globulin 2.7 g/dL (1.3-4.6); Glomerular Filtration Rate 83.2 mL/min (90-130); Glucose 117 mg/dL (65-115); Osmolality Calculated 288 mOsm/kg (285-295); Potassium 3.4 mmol/L (3.5-5.1); Sodium 138 mmol/L (136-145); Total Bilirubin 0.2 mg/dL (0.15-1.2); Total Protein 6.3 g/dL (6.6-8.7)
== END 2024-06-15 23:59 | disposition home or self-care (01) ==
PROVIDERS: PCP Family Medicine; Visit Provider Nurse Practitioner Family
DX: C49.21 Malignant neoplasm of connective and soft tissue of right lower limb, including hip (principal); D64.9 Anemia, unspecified; Z95.828 Presence of other vascular implants and grafts; Z87.891 Personal history of nicotine dependence; Z93.59 Other cystostomy status; Z92.3 Personal history of irradiation
CPT/HCPCS: 36591; 80053; 85025; 99213

== ENCOUNTER 2024-07-27 08:08 | Outpatient (CLI) | payer MEDICARE, SELFPAY ==
--- NOTE | 2024-07-27 08:45 | NM_ITS ---
WS: [id number] NUCLEAR MEDICINE BONE SCAN Radiopharmaceutical: 26.3 Tc-99m MDP mCi IV Injection site: Antecubital Postinjection imaging delay: 1 hr CLINICAL INFORMATION: sarcoma COMPARISON: 09/15/2023 FINDINGS: Bone lesions: There are no osseous lesions suspicious for metastatic disease. Soft tissue contours: Normal. Kidneys: Normal. Other findings: Degenerative arthritis both knees, both ankles, and both AC joints. Thoracolumbar curve. NM/NM bone scan whole body* [id number] IMPRESSION: No evidence of osseous metastatic disease.
== END 2024-07-27 08:09 | disposition home or self-care (01) ==
LOC: RAD 08:11
PROVIDERS: PCP Family Medicine; Visit Provider Internal Medicine
DX: C49.21 Malignant neoplasm of connective and soft tissue of right lower limb, including hip (principal); M17.0 Bilateral primary osteoarthritis of knee; M19.072 Primary osteoarthritis, left ankle and foot; M19.071 Primary osteoarthritis, right ankle and foot; M19.012 Primary osteoarthritis, left shoulder; M19.011 Primary osteoarthritis, right shoulder; M43.8X5 Other specified deforming dorsopathies, thoracolumbar region
CPT/HCPCS: 78306; A9561

== ENCOUNTER 2024-08-10 10:00 | Oncology outpatient (recurring) (ONCR) | payer MEDICARE, SELFPAY ==
[2024-07-31 09:48] LABS: Basophils % 0.5 %; Eosinophils # 0.1 10^3/uL (0.0-0.8); Eosinophils % 1.2 %; Hematocrit 34.2 % (36-47); Lymphocytes # 1.6 10^3/uL (0.8-4.8); Lymphocytes % 24.2 %; Mean Corpuscular HGB Conc 29.8 g/dL (30-55); Mean Corpuscular Hemoglobin 26.9 pg (27-33); Mean Corpuscular Volume 90.2 fl (85-98); Mean Platelet Volume 9.5 fL (7.4-10.4); Monocytes # 0.6 10^3/uL (0.2-0.9); Monocytes % 8.9 %; Neutrophils # 4.32 10^3/uL (1.8-7.7); Neutrophils % 64.7 %; Nucleated Red Blood Cells % 0 %; Platelet Count 253 10^3/cmm (157-399); Red Blood Count 3.79 10^6/uL (3.85-5.65); White Blood Count 6.66 10^3/uL (3.29-11.43)
[2024-07-31 10:04] LABS: Alanine Aminotransferase 10 U/L (0-33); Albumin Level 3.9 g/dL (3.5-5.2); Alkaline Phosphatase 151 U/L (35-105); Anion Gap 16.3 (5-19); Aspartate Amino Transferase 16 U/L (0-32); Blood Urea Nitrogen 15 mg/dL (8-23); Carbon Dioxide 33 mmol/L (22-29); Chloride 95 mmol/L (98-107); Globulin 2.9 g/dL (1.3-4.6); Glomerular Filtration Rate 83.2 mL/min (90-130); Glucose 128 mg/dL (65-115); Lactate Dehydrogenase 162 U/L (135-214); Osmolality Calculated 294 mOsm/kg (285-295); Potassium 3.3 mmol/L (3.5-5.1); Sodium 141 mmol/L (136-145); Total Bilirubin 0.3 mg/dL (0.15-1.2); Total Protein 6.8 g/dL (6.6-8.7)
--- NOTE | 2024-08-10 10:00 | PETR_ITS ---
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 Then, PET images were obtained. Attenuation corrected images were constructed using the CT scan. Fused images of PET and CT were reviewed. The standardized uptake values (SUV) reported below are maximum values within a region of interest, expressed in gm/ml. Exam includes the whole body. SUV normalization method: BodyWeight Radiopharmaceutical: 10.72 mCi F-18 FDG (Fluorodeoxyglucose), IV. Time of imaging post radiopharmaceutical administration: 46 minutes Injection site: right hand COMPARISON: NM bone scan whole body* [id number] 07/27/2024 8:45 AM, CT chest 04/06/2024, CT abdomen and pelvis 02/27/2024 FINDINGS: Tubes, catheters and devices: A right internal jugular central venous port catheter terminates in the right atrium. Brain: Visualized brain has normal physiologic uptake. Pharynx: No abnormal uptake. Larynx: No abnormal uptake. Lungs, pleura and trachea: An ovoid focus of patchy density in the medial aspect of the left upper lobe is similar in morphology SUV max 4.2 on PET image 116 in a region measuring 3.3 x [address] image 495. A similar in size spiculated left upper lobe nodular density is identified anteriorly on CT image 477 measuring 2.0 x 1.6 cm, SUV max 4.5. [id number] bilateral centrilobular emphysematous changes are identified. Mild dependent streaky density in the lungs is consistent with atelectasis. Heart: Normal physiologic uptake. Mediastinal space: No abnormal uptake. Liver: No abnormal uptake. Gallbladder and biliary ducts: No abnormal uptake. Cholecystectomy clips are present. Pancreas: No abnormal uptake. Spleen: No abnormal uptake. Adrenal glands: No abnormal uptake. Similar in size bilateral adrenal nodules are identified without elevated uptake, measuring approximately 3.1 x 1.7 cm on the right on CT image 438 and 2.5 x 1.7 cm on the left on CT image 429. Kidneys and ureters: Normal physiologic uptake. A 1 cm lesion in the lateral left kidney on CT series 202, image 419 is slightly dense compared with underlying renal parenchyma without definite abnormal uptake. Additional rounded lesions noted in both kidneys on the comparison CT do not appear to demonstrate elevated uptake and are not well assessed the CT images secondary to lack of intravenous contrast. Stomach and bowel: The small focus of uptake in the rectum is identified without a well-defined lesion on the CT images, SUV max 4.7 (series 301, image 268). Vasculature: No abnormal uptake. There are diffuse atherosclerotic changes, which appear extensive in the infrarenal abdominal aorta. Lymph nodes: A precarinal lymph node measuring 1.5 x [address] image 491 is noted, SUV max 2.2. Skeleton: Uptake in the bilateral glenohumeral joint capsules is likely inflammatory, for example on the left, SUV max 4.4 (PET image 103), without correlating lesions on the CT images. Plate and screw fixation of the left 5th metatarsal is identified. There are bilateral total hip prostheses. Degenerative changes in the spine are identified Soft tissues: A new appearing right inguinal region mass or complex fluid collection is identified extending along the anterior aspect of the proximal femoral shaft measuring 7.9 x 6.6 cm in the axial plane on series 202, image 311, with evidence of elevated uptake in its periphery, SUV max 8.1 on PET series 301, image 295. Mild asymmetric elevated uptake is identified in the region of the distal vastus lateralis muscle and biceps femoris muscle along the superior aspect of the knee without a well-defined lesion on the CT images, SUV max 3.0 on series 301, image 388. Mild asymmetric uptake is identified in the proximal right lower leg musculature without a well-defined lesion on the CT images, SUV max 3.0 on series 301, image 423. Hernia repair coils in the region of the rectus abdominis musculature in the abdomen are noted. Surgical clips in the right inguinal region are identified with overlying moderate skin thickening with mildly elevated uptake, SUV max 3.[address] image 293 extending into the proximal anterior right thigh. METRICS: Mediastinal blood pool: SUV max 2.7, SUV mean 2.3 Liver uptake: SUV max 3.4, SUV mean 2.4 PET/PET WB melanoma INITIAL [id number] IMPRESSION: 1. A new appearing complex fluid collection or mass in the right inguinal region is noted with uptake in his periphery concerning for possible malignancy. Inflammatory uptake related to interval development of a postoperative complex seroma or abscess can not be entirely excluded. 2. Similar solid left upper lobe nodule compared with 04/06/2024 with elevated uptake consistent with malignancy. 3. Uptake within the similar in morphology ovoid region of patchy density in the medial left upper lobe is noted can be related to inflammatory, infectious or malignant etiologies. 4. Low-level uptake within a mildly prominent precarinal lymph node is noted, likely inflammatory. A malignant etiology is less likely. 5. Non radiotracer avid bilateral adrenal nodules favoring a benign etiology. 6. Bilateral renal lesions are not well assessed by F 18 FDG PET. Lack of uptake favors a benign etiology. Consider dedicated multiphasic renal MRI with and without contrast for more definitive assessment as clinically indicated. 7. Areas of low-level uptake within skin thickening in the right inguinal region and in the musculature along the lateral aspect of the right knee and proximal lower leg is noted, likely inflammatory in nature. A malignant etiology can not be excluded. 8. A small focus of uptake in the region of the rectum is noted without a correlating lesion on the CT images, likely physiologic or inflammatory in etiology. A malignant etiology is less likely but cannot be entirely excluded. Attention to this region on follow-up imaging is recommended. 9. Additional nonurgent findings as detailed above.
== END 2024-08-13 23:59 | disposition home or self-care (01) ==
LOC: RAD 08-11 → ONCMED 08-13 09:06
PROVIDERS: Internal Medicine; PCP Family Medicine; Visit Provider Internal Medicine Medical Oncology
DX: Z53.9 Procedure and treatment not carried out, unspecified reason; C49.21 Malignant neoplasm of connective and soft tissue of right lower limb, including hip; R91.8 Other nonspecific abnormal finding of lung field; R23.4 Changes in skin texture; D44.11 Neoplasm of uncertain behavior of right adrenal gland; D44.12 Neoplasm of uncertain behavior of left adrenal gland
CPT/HCPCS: 36591; 78816; 80053; 83615; 85025; 99214; A9552

== ENCOUNTER 2024-08-16 09:13 | Oncology outpatient (recurring) (ONCR) | payer MEDICARE, SELFPAY ==
--- NOTE | 2024-08-14 14:21 | CTR_ITS ---
PROCEDURE INFORMATION: Exam: CT Chest With Contrast; Diagnostic Exam date and time: 08/14/2024 3:28 PM Age: 69 years old Clinical indication: Condition or disease; Other: Sarcoma of R lower extremity; Prior surgery; Surgery date: 6+ months; Surgery type: Port TECHNIQUE: Imaging protocol: Diagnostic computed tomography of the chest with contrast. Radiation optimization: All CT scans at this facility use at least one of these dose optimization techniques: automated exposure control; mA and/or kV adjustment per patient size (includes targeted exams where dose is matched to clinical indication); or iterative reconstruction. Contrast material: OMNI 350; Contrast volume: 100 ml; Contrast route: INTRAVENOUS (IV); COMPARISON: PT PET WB melanoma SUBSEQ [id number] 08/10/2024 10:59 AM; chest CT 04/06/2024 RADIATION DOSE METRICS: Total DLP (mGy-cm): 1237.27 FINDINGS: Tubes, catheters and devices: Right-sided kylee catheter terminating in the right atrium. Lungs: Left upper lobe anterior segment nodule measures approximately 1.9 cm without change with adjacent peripheral atelectasis. Minimal ground-glass opacities are again seen adjacent to this lesion. In the left upper lobe medially there is a stable ground-glass opacity measuring 3.3 x 2.1 cm on sagittal imaging without definite change by my measurement. Pleural spaces: Unremarkable. No pneumothorax. No pleural effusion. Heart: Unremarkable. No cardiomegaly. No pericardial effusion. Lymph nodes: Unremarkable. No enlarged lymph nodes. Vasculature: Unremarkable. No aortic aneurysm. Diaphragm: Suggestion of a small hiatal hernia. There is some oral contrast material in the esophagus. Bones/joints: Unremarkable. No acute fracture. Soft tissues: Unremarkable. PROCEDURE INFORMATION: Exam: CT Abdomen And Pelvis With Contrast Exam date and time: 08/14/2024 3:28 PM Age: 69 years old Clinical indication: Condition or disease; Other: Sarcoma of R lower extremity; Prior surgery; Surgery date: 6+ months; Surgery type: Port TECHNIQUE: Imaging protocol: Computed tomography of the abdomen and pelvis with contrast. Radiation optimization: All CT scans at this facility use at least one of these dose optimization techniques: automated exposure control; mA and/or kV adjustment per patient size (includes targeted exams where dose is matched to clinical indication); or iterative reconstruction. Contrast material: OMNI 350; Contrast volume: 100 ml; Contrast route: INTRAVENOUS (IV); COMPARISON: PT PET WB melanoma SUBSEQ [id number] 08/10/2024 10:59 AM; CT abdomen pelvis 02/27/2024 RADIATION DOSE METRICS: Total DLP (mGy-cm): 1236.27 FINDINGS: Liver: Normal. No mass. Gallbladder and biliary ducts: Status post cholecystectomy. Pancreas: Normal. No ductal dilation. Spleen: Normal. No splenomegaly. Adrenal glands: Bilateral adrenal masses are stable. Kidneys and ureters: There are multiple hypodense left renal lesions or masses which are indeterminate and may be solid. These are stable in size. The largest measures 1.6 cm in the lower pole. Stomach and bowel: Unremarkable. No obstruction. No mucosal thickening. Appendix: No evidence of appendicitis. Intraperitoneal space: In the right lower quadrant there is a lobular fluid density structure or lesion measuring 6.5 x 4.8 cm. It is surrounded by bowel loops and is of unclear etiology. Average attenuation is approximately 8 Hounsfield units. Vasculature: Unremarkable. No abdominal aortic aneurysm. Lymph nodes: Unremarkable. No enlarged lymph nodes. Urinary bladder: Not well visualized due to streak artifact from hip prostheses. There appears to be a suprapubic catheter which may extend into the right groin with a collapsed urinary bladder. Reproductive: Not well visualized due to streak artifact from hip prostheses. Bones/joints: Bilateral hip prostheses are in place. Soft tissues: There is a large partially visualized mass in the right lateral inguinal region extending into the proximal anterior thigh which is heterogeneous. This measures 7.9 x 5.7 cm in transverse dimensions, without definite change in size compared to prior PET-CT. It is new compared to the abdominal pelvis CT from 02/27/2024. Anterior soft tissue thickening extending to the skin surface is partially visualized. Multiple surgical clips are seen in the right groin. Postsurgical changes of a ventral hernia repair. Right inguinal hernia containing fat and small bowel. CT/CT chest abdpel w/*[id number] IMPRESSION: 1. Stable left upper lobe nodule and ground-glass opacity as described. Neoplastic etiologies can not be excluded. 2. Small hiatal hernia. IMPRESSION: 1. Large partially visualized mass in the right inguinal region laterally extending into the thigh without definite change in size compared to PET-CT. This is suspicious for malignancy. 2. Stable bilateral adrenal masses. 3. Hypodense left renal lesions or masses which are indeterminate and potentially solid. They are stable. 4. Fluid density lobular lesion in the right lower quadrant surrounded by bowel loops. It is of unclear etiology and has slightly shifted in position compared to prior PET-CT previously more inferior. 5. Right inguinal hernia.
[2024-08-14] MEDS: iohexol 350 mg/mL 500 mL Btl (per mL) PO (14:31)
[2024-08-14] MEDS: iohexol 350 mg/mL 500 mL Btl (per mL) IV (15:31)
--- NOTE | 2024-08-14 16:05 | PC.NURSE ---
Patient going to CT Scan needing port access with no issues.mm
[2024-08-16 09:34] LABS: Basophils % 0.3 %; Eosinophils % 0.5 %; Hematocrit 35.4 % (36-47); Lymphocytes # 1.1 10^3/uL (0.8-4.8); Lymphocytes % 14.6 %; Mean Corpuscular HGB Conc 30.5 g/dL (30-55); Mean Corpuscular Hemoglobin 27.3 pg (27-33); Mean Corpuscular Volume 89.4 fl (85-98); Mean Platelet Volume 9.1 fL (7.4-10.4); Monocytes # 0.6 10^3/uL (0.2-0.9); Monocytes % 7.5 %; Neutrophils # 5.68 10^3/uL (1.8-7.7); Neutrophils % 76.6 %; Nucleated Red Blood Cells % 0 %; Platelet Count 267 10^3/cmm (157-399); Red Blood Count 3.96 10^6/uL (3.85-5.65); Red Cell Distribution Width 16.7 % (12.1-15.1); Reticulocyte % 2.2 % (0.5-2.0); White Blood Count 7.42 10^3/uL (3.29-11.43)
[2024-08-16 09:37] LABS: Erythrocyte Sedimentation Rate 25 mm/hr (0-15)
[2024-08-16 09:53] LABS: Alanine Aminotransferase 10 U/L (0-33); Albumin Level 3.9 g/dL (3.5-5.2); Alkaline Phosphatase 157 U/L (35-105); Anion Gap 14.4 (5-19); Aspartate Amino Transferase 14 U/L (0-32); Blood Urea Nitrogen 15 mg/dL (8-23); Calcium 8.9 mg/dL (8.5-10.5); Carbon Dioxide 31 mmol/L (22-29); Chloride 94 mmol/L (98-107); Ferritin 15 ng/mL (15-150); Globulin 3.1 g/dL (1.3-4.6); Glomerular Filtration Rate 83.2 mL/min (90-130); Glucose 145 mg/dL (65-115); Iron 70 ug/dL (37-145); Lactate Dehydrogenase 181 U/L (135-214); Osmolality Calculated 285 mOsm/kg (285-295); Percent Saturation 19.3 % (20-50); Potassium 3.4 mmol/L (3.5-5.1); Sodium 136 mmol/L (136-145); Total Bilirubin 0.5 mg/dL (0.15-1.2); Total Iron Binding Capacity 362 mcg/dl; Unsaturated Iron Binding 292 ug/dL (112-347)
[2024-08-16 10:09] LABS: Vitamin B12 1049 pg/mL (232-1245)
[2024-08-16 10:14] LABS: Folate Level 4.9 ng/mL (4.8-37.3)
== END 2024-09-12 23:59 | disposition home or self-care (01) ==
PROVIDERS: PCP Family Medicine; Visit Provider Internal Medicine
DX: C49.21 Malignant neoplasm of connective and soft tissue of right lower limb, including hip; C34.12 Malignant neoplasm of upper lobe, left bronchus or lung; I50.33 Acute on chronic diastolic (congestive) heart failure; D50.9 Iron deficiency anemia, unspecified; R33.9 Retention of urine, unspecified; Z96.0 Presence of urogenital implants; Z92.3 Personal history of irradiation; Z87.891 Personal history of nicotine dependence; Z53.9 Procedure and treatment not carried out, unspecified reason
CPT/HCPCS: 36591; 71260; 74177; 80053; 82607; 82728; 82746; 83010; 83540; 83550; 83615; 85025; 85045; 85651; 99213

== ENCOUNTER 2024-11-06 11:46 | Emergency (ER) | payer OTHER, SELFPAY ==
[2024-11-06 11:50] VITALS: BP 107/48; PULSE 87; RESP 19; TEMP 37.1; O2SAT 92; BMI 35.0
--- OUTSIDE RECORDS SUMMARY | 2024-11-06 12:13 | XMS_ITS | Encounter Summary ---
Author Organization [facility] Address [address] [place] [address] Care Team Providers Care Trouble Operator Name Role Phone Ok Sanchez MD Primary Care Provider Reason for Referral * Outpatient Services (Routine) - Closed Specialty Diagnoses / Procedures Referred By Contac t Referred To Contact Diagnoses Syncope, unspecified Procedures CL STUDY TILT Anastasia Lee MD Phone: tel: fax: Referral ID Status Reason Start Date Expiration Date Visits Re quested Visits Authorized [id number] Closed 12/10/2014 01/10/2016 1 1 Encounter Details Date Type Department Care Team (Latest Contact Info) Description 12/10/2014 Ancillary Orders [facility] Electrophysiology Lab [address] 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 DESCRIPTION OF PROCEDURE: After informed consent was obtained, the patient was sent to the EP Lab for the tilt table test. For 25 minutes we established baseline. The patient's systolic blood pressure is around 146-151 beats per minute and diastolic is about 75-80, heart rate was 70-75 beats per minute, and oxygenation was 96%. Right after tilt up at 70 degrees, the patient's blood pressure was 157/81, pulse rate is 86. Throughout the procedure the patient's heart rate maintained 85-90 beats per minute, blood pressure maintained at 150-160 mmHg and so at 30 minutes the patient's blood pressure was 144/84, heart rate was 86 beats per minute, oxygenation 94%. No symptoms whatsoever so this is a negative study with normal cardiovascular response to gravity. FINAL SUMMARY: Negative tilt table test. SCL/tjb - transcribed in [facility] - us Anastasia Lee MD ELECTROPHYSIOLOGY ORDERABLES Final Result [facility] documented in this encounter Visit Diagnoses Diagnosis Syncope, unspecified- Primary Syncope, unspecified documented in this encounter Care Teams Trouble Operator Relationship Specialty Start Date End Date Ok Sanchez MD PCP - General Internal Medicine 10/01/12 documented as of this encounter
--- OUTSIDE RECORDS SUMMARY | 2024-11-06 12:13 | XMS_ITS | Encounter Summary ---
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 Gender Identity Not on file Sexual Orientation Not on file documented as of this encounter Plan of Treatment Not on file documented as of this encounter Procedures Procedure Name Priority Date/Time Associated Diagnosis Comments LIPID PANEL Routine 10/18/2006 10:35 AM CDT CARDIAC ENZYMES Routine 10/18/2006 2:08 AM CDT CARDIAC ENZYMES Routine 10/17/2006 9:48 PM CDT TSH Routine 10/17/2006 9:48 PM CDT HEPATIC FUNCTION PANEL Routine 10/17/2006 9:48 PM CDT NM LUNG VENT PERF Routine 10/17/2006 8:2 6 PM CDT XR CHEST PA OR AP 1 VW Routine 10/17/2006 8:26 PM CDT CARDIAC ENZYMES Routine 10/17/2006 2:53 PM CDT CBC WITH DIFFERENTIAL Routine 10/17/2006 2:53 PM CDT PTT Routine 10/17/2006 2:53 PM CDT PROTIME-INR Routine 10/17/2006 2:53 PM CDT BASIC METABOLIC PANEL Routine 10/17/2006 2:53 PM CDT documented in this encounter Results * LIPID PANEL (10/18/2006 10:35 AM CDT) CHOLESTEROL 180 75 - 200 mg/dL INTERFACE SYSTEM HDL 41 40 - 60 mg/dL INTERFACE SYSTEM TRIGLYCERIDE 122 0 - 200 mg/dL INTERFACE SYSTEM CALCULATED LDL CHOLESTEROL 115 0 - 130 mg/dL INTERFACE SYSTEM CALCULATED TOTAL CHOLESTEROL TO HDL RATIO 4.39 3.27 - 4.44 INTERFACE SYSTEM 10/18/2006 10:3 5 AM CDT us Melina Angel MD CHEMISTRY ORDERABLES Edited INTERFACE SYSTEM Refer to clinic/hospital department * CARDIAC ENZYMES (10/18/2006 2:08 AM CDT) TROPONIN I <0.1 0.0 - 1.3 ng/mL INTERFACE SYSTEM Comment: As of 06 the Troponin Reference Range has changed from 0.0-1.5 ng/ml to 0.0- 1.3 ng/ml due to a change in testing methodology. CKMB <0.2 0.0 - 5.0 ng/mL INTERFACE SYSTEM 10/18/2006 2:08 AM CDT Rik Zabala DO CHEMISTRY ORDERABLES Edite d Performing Organization Address [facility] Phone Number INTERFACE SYSTEM Refer to clinic/hospital department * (ABNORMAL) HEPATIC FUNCTION PANEL (10/17/2006 9:48 PM CDT) TOTAL PROTEIN 6.3 6.3 - 8.2 g/dL INTERFACE SYSTEM ALBUMIN 3.8 3.5 - 5.0 g/dL INTERFACE SYSTEM ALKALINE PHOSPHATASE 132(H) 25 - 100 U/L INTERFACE SYSTEM AST 21 8 - 33 U/L INTERFACE SYSTEM ALT 16 4 - 36 IU/L INTERFACE SYSTEM BILIRUBIN TOTAL 0.3 0.3 - 1.2 mg/dL INTERFACE SYSTEM BILIRUBIN DIRECT 0.1 0.0 - 0.4 mg/dL INTERFACE SYSTEM 10/17/2006 9:48 PM CDT Melina Angel MD CHEMISTRY ORDERABLES Edited Performing Organization Address [facility] Phone Number INTERFACE SYSTEM Refer to clinic/hospital department * TSH (10/17/2006 9:48 PM CDT) TSH 2.910 0.350 - 5.500 uIU/ml INTERFACE SYSTEM Comment: As of 04 at 3:00 p.m. [facility] has changed the methodology for TSH, and with this change the reference range has changed from 0.49-4.67 to 0.35-5.5 uIU/ml. 10/17/2006 9:48 PM CDT Melina Angel MD CHEMISTRY ORDERABLES Edited Performing Organization Address [facility] Phone Number INTERFACE SYSTEM Refer to clinic/hospital department * CARDIAC ENZYMES (10/17/2006 9:48 PM CDT) TROPONIN I <0.1 0.0 - 1.3 ng/mL INTERFACE SYSTEM Comment: As of 06 the Troponin Reference Range has changed from 0.0-1.5 ng/ml to 0.0- 1.3 ng/ml due to a change in testing methodology. CKMB <0.2 0.0 - 5.0 ng/mL INTERFACE SYSTEM 10/17/2006 9:48 PM CDT iRk Zabala DO CHEMISTRY ORDERABLES Edite d INTERFACE SYSTEM Refer to clinic/hospital department * NM LUNG VENT PERF (10/17/2006 8:26 PM CDT) Anatomical Region Laterality Modality Chest Other 10/17/2006 8:26 PM CDT Narrative 10/17/2006 8:26 PM CDT 10/18/2006 Radiopharmaceutical: Xe-133 (Xenon gas) Dose: 21.6 mCi Tc-99m MAA (technetium-99m albumin aggregated) 4.2 mCi Reason for Consultation: Sudden onset of chest pain and shortness of breath. LUNG IMAGING, VENTILATION: Ventilation imaging was performed in the posterior supine position. Single breath, equilibrium, and washout data were acquired. On the first single breath, it is demonstrated that there are a few areas of restriction to ventilation in the central portion of the right lung. As the patient breathes to equilibrium, there was some leakage of the tracer, and there was also leakage during the equilibrium phase. The washout phase is slightly prolonged, and there are patchy focal areas of retention in both lungs. The delayed washout images show the greatest relative retention at the bases bilaterally. LUNG IMAGING, PERFUSION: The lungs were imaged in multiple projections in the supine position. There is relatively minimal patchy perfusion irregularity in the lungs. There are certainly no large subsegmental or segmental lesions identified. IMPRESSION: There is no evidence of acute or recent pulmonary thromboemboli. There is evidence of some minimal restrictive and somewhat greater obstructive airways disease. Because the greatest obstruction is at the bases bilaterally, suggest an alpha-1- antitrypsin determination. joshua Dictated By: Neri Tinsley M.D. Electronically Signed By: Neri Tinsley M.D. Date Signed: 10/18/06 JAW Procedure Note 04/05/2009 10/18/2006 Radiopharmaceutical: Xe-133 (Xenon gas) Dose: 21.6 mCi Tc-99m MAA (technetium-99m albumin aggregated) 4.2 mCi Reason for Consultation: Sudden onset of chest pain and shortness of breath. LUNG IMAGING, VENTILATION: Ventilation imaging was performed in the posterior supine position.Single breath, equilibrium, and washout data were acquired. On the first single breath, it is demonstrated that there are a few areasof restriction to ventilation in the central portion of the right lung. As the patient breathes toequilibrium, there was some leakage of the tracer, and there was also leakage during the equilibrium phase.The washout phase is slightly prolonged, and there are patchy focal areas of retention in both lungs.The delayed washout images show the greatest relative retention at the bases bilaterally. LUNG IMAGING, PERFUSION: The lungs were imaged in multiple projections in the supine position. There is relatively minimal patchy perfusion irregularity in the lungs.There are certainly no large subsegmental or segmental lesions identified. IMPRESSION: There is no evidence of acute or recent pulmonary thromboemboli. Thereis evidence of some minimal restrictive and somewhat greater obstructive airways disease. Because thegreatest obstruction is at the bases bilaterally, suggest an alpha-1- antitrypsin determination. jaw Dictated By: Neri Tinsley M.D. Electronically Signed By: Neri Tinsley M.D. Date Signed: 10/18/06 JAW Melina Angel MD DC ORDERABLES Final Result * XR CHEST PA OR AP (10/17/2006 8:26 PM CDT) Anatomical Region Laterality Modality Chest Other 10/17/2006 8:26 PM CDT Narrative 10/17/2006 8:26 PM CDT Exam: Chest - PADate/Time of Exam: Oct 17, 2006 2:45:27 PMHistory: CHEST PAIN. Findings: AP chest demonstrates unremarkable lungs given suboptimal inspiration. No pleural effusion. Cardiomediastinal contours are within normal limits. Impression: Negative given limitation of AP technique with suboptimal inspiration. - Dictated By: Grzegorz Perez M.D. Electronically Signed By: Grzegorz Perez M.D. Date Signed: 10/17/06 Procedure Note 04/05/2009 Exam: Chest - PADate/Time of Exam: Oct 17, 2006 2:45:27 PMHistory: CHEST PAIN. Findings: AP chest demonstrates unremarkable lungs given suboptimal inspiration. Nopleural effusion. Cardiomediastinal contours are within normal limits. Impression: Negative given limitation of AP technique with suboptimal inspiration. - Dictated By: Grzegorz Perez M.D. Electronically Signed By: Grzegorz Perez M.D. Date Signed: 10/17/06 Rik Zabala DO DIAGNOSTIC IMAGING ORDERAB LES Final Result * CBC WITH DIFFERENTIAL (10/17/2006 2:53 PM CDT) WBC 5.6 4.8 - 10.8 K/ul INTERFACE SYSTEM RBC 4.42 4.20 - 5.40 Mil/ul INTERFACE SYSTEM HEMOGLOBIN 13.9 12.0 - 16.0 g/dL INTERFACE SYSTEM HEMATOCRIT 40.6 36.0 - 46.0 % INTERFACE SYSTEM MCV 91.9 84.0 - 103.0 Fl INTERFACE SYSTEM MCH 31.4 27.0 - 34.0 pg INTERFACE SYSTEM MCHC 34.2 30.0 - 35.0 g/dL INTERFACE SYSTEM RDW 13.1 11.0 - 14.5 % INTERFACE SYSTEM PLATELETS 267 140 - 440 K/ul INTERFACE SYSTEM MPV 10.7 8.9 - 12.8 Fl INTERFACE SYSTEM NEUTROPHILS 50.9 42.2 - 75.2 % INTERFACE SYSTEM LYMPHOCYTES 40.6 24.0 - 44.0 % INTERFACE SYSTEM MONOCYTES 6.7 2.0 - 10.0 % INTERFACE SYSTEM EOSINOPHILS 1.4 0.0 - 7.0 % INTERFACE SYSTEM BASOPHILS 0.4 0.0 - 1.0 % INTERFACE SYSTEM NEUTROPHIL ABSOLUTE 2.9 2.0 - 8.0 K/ul INTERFACE SYSTEM LYMPHOCYTE ABSOLUTE 2.3 1.2 - 4.0 K/ul INTERFACE SYSTEM MONOCYTE ABSOLUTE 0.4 0.1 - 0.6 K/ul INTERFACE SYSTEM EOSINOPHIL ABSOLUTE 0.1 0.0 - 0.7 K/ul INTERFACE SYSTEM BASOPHILS ABSOLUTE 0.0 0.0 - 0.2 K/ul INTERFACE SYSTEM 10/17/2006 2:53 PM CDT Rik Zabala DO HEMATOLOGY ORDERABLES Edit ed Performing Organization Address [facility] de Phone Number INTERFACE SYSTEM Refer to clinic/hospital department * PTT (10/17/2006 2:53 PM CDT) PTT 22.9 21.6 - 35.6 Secs INTERFACE SYSTEM Comment: Therapeutic Range: Hi-level PE/DVT heparin protocol 80.1 -95.0 sec Lo-level PE/DVT heparin protocol 67.1 - 80.0 sec Cardiac Heparin Protocol 67.1 - 85.0 sec Neuro Heparin Protocol 67.1 - 80.0 sec As of 04/21/2006 note change in APTT Normal Range. 10/17/2006 2:53 PM CDT us Rik Zabala DO HEMATOLOGY ORDERABLES Edit ed Performing Organization Address [facility] de Phone Number INTERFACE SYSTEM Refer to clinic/hospital department * PROTIME-INR (10/17/2006 2:53 PM CDT) PROTIME 14.5 13.0 - 15.7 Secs INTERFACE SYSTEM Comment: As of 06 note change in normal range. INR 1.0 INTERFACE SYSTEM Comment: Expected Values for INR: DVT/PE Goal INR 2.5; range 2.0 - 3.0 Valve Replacement Tissue Goal INR 2.5; range 2.0 - 3.0 Mechanical Goal INR 3.0; range 2.5 - 3.5 POST-NM Goal INR 2.5; range 2.0 - 3.0 or Goal 3.0; range 2.5 - 3.5 Atrial Fibrillation Goal INR 2.5; range 2.0 - 3.0 Ischemic Stroke Goal INR 2.5; range 2.0 - 3.0 For additional information see Guidelines for Anticoagulation available from the pharmacy [facility]. 10/17/2006 2:53 PM CDT Rik Zabala DO HEMATOLOGY ORDERABLES Edit ed Performing Organization Address [facility] Phone Number INTERFACE SYSTEM Refer to clinic/hospital department * BASIC METABOLIC PANEL (10/17/2006 2:53 PM CDT) GLUCOSE 106 70 - 110 mg/dL INTERFACE SYSTEM BUN 11 7 - 17 mg/dL INTERFACE SYSTEM CREATININE 0.8 0.7 - 1.2 mg/dL INTERFACE SYSTEM SODIUM 140 136 - 145 mEq/L INTERFACE SYSTEM POTASSIUM 3.8 3.5 - 5.0 mEq/L INTERFACE SYSTEM CHLORIDE 107 95 - 110 mEq/L INTERFACE SYSTEM CO2 27 22 - 32 mmol/l INTERFACE SYSTEM CALCIUM 9.4 8.4 - 10.5 mg/dL INTERFACE SYSTEM ANION GAP 10 9 - 20 mEq/L INTERFACE SYSTEM OSMOLALITY, CALCULATED 287 275 - 295 mOsm/Kg INTERFACE SYSTEM 10/17/2006 2:53 PM CDT Rik Zabala DO CHEMISTRY ORDERABLES Edite d Performing Organization Address [facility] Phone Number INTERFACE SYSTEM Refer to clinic/hospital department * CARDIAC ENZYMES (10/17/2006 2:53 PM CDT) TROPONIN I <0.1 0.0 - 1.3 ng/mL INTERFACE SYSTEM Comment: As of 06 the Troponin Reference Range has changed from 0.0-1.5 ng/ml to 0.0- 1.3 ng/ml due to a change in testing methodology. CKMB 0.5 0.0 - 5.0 ng/mL INTERFACE SYSTEM 10/17/2006 2:53 PM CDT Rik Zabala DO CHEMISTRY ORDERABLES Edite d Performing Organization Address [facility] Phone Number INTERFACE SYSTEM Refer to clinic/hospital department documented in this encounter Visit Diagnoses Diagnosis Precordial pain- Primary documented in this encounter Care Teams Floor Tech Relationship Specialty Start Date End Date Ok Sanchez MD PCP - General Internal Medicine 10/01/12 documented as of this encounter
--- OUTSIDE RECORDS SUMMARY | 2024-11-06 12:13 | XMS_ITS | Encounter Summary ---
Author Organization [facility] Address [address] [place] [address] Care Team Providers Care Cement Handler Name Role Phone Ok Sanchez MD Primary Care Provider Encounter Details Date Type Department Care Team (Late st Contact Info) Description 04/17/2001 Outpatient Historical [facility] ChristianaRoman MD [address] [id number] DIS OF GALLBLADDER NEC (Primary Dx) Social History Tobacco Use Types Packs/Day Years Used Date Smoking Tobacco: Never Assessed Comments Unknown Sex and Gender Information Value Date Recorded Sex Assigned at Not on file Legal Sex Female 2:[address] Gender Identity Not on file Sexual Orientation Not on file documented as of this encounter Plan of Treatment Not on file documented as of this encounter Visit Diagnoses Diagnosis Other specified disorder of gallbladder- Primary documented in this encounter Care Teams Cement Handler Relationship Specialty Start Date End Date Ok Sanchez MD PCP - General Internal Medicine 10/01/12 documented as of this encounter
--- OUTSIDE RECORDS SUMMARY | 2024-11-06 12:13 | XMS_ITS ---
Author Organization [facility] Address [address] Low: Epic Prelude ADT [place] [address] Care Team Providers Care Verifying Specialist Name Role Phone Unavailable Primary Care Provider Unavailabl e Active Problems Problem Noted Date Diagnosed Date Encounter for management of wound VAC 03/19/2023 Debility due to large sarcom a s/p removal with subequent surgical wound dehiscense s/p incision and drainage with wound vac placement 03/19/2023 Superficial incisional surgical site infection 1 Severe obesity (BMI 35.0-39.9) with comorbidity 02/25/2023 Sarcoma 02/17/2023 Acute on chronic respiratory failure 02/17/2023 Impaired mobility and activities of daily living 02/17/2023 Post-op pain 02/17/2023 Syncope and collapse 11/09/2014 Depression 11/09/2014 HTN (hypertension), benign 11/09/2014 LBBB (left bundle branch block) 11/09/2014 Nocturnal hypoxemia 11/09/2014 Tobacco abuse 11/09/2014 Anxiety 11/09/2014 Positive D dimer 11/09/2014 Chest pain 11/09/2014 N\T\V (nausea and vomiting) 10/27/2013 UTI (lower urinary tract infection) 10/27/2013 Dysphagia 10/24/2012 GERD (gastroesophageal reflux disease) 3 Syncope Palpitations Current Treatment and Therapy Plans No current plan information found. Past Treatment and Therapy Plans No past plan information found. Lifetime Dose Tracking * Chemical Lifetime Dose Automatic Entry Manual Entr y Effective Dose 12.11 mSv 12.11 mSv 0 mSv Total DLP 3,130.58 DLP 3,130.58 DLP 0 DLP CTDIvol Max 21.63 mGy 21.63 mGy 0 mGy Resolved Problems Problem Noted Date Diagnosed Date Resolved Date Status post placement of imp lantable loop recorder 07/01/2015 05/31/2018
--- OUTSIDE RECORDS SUMMARY | 2024-11-06 12:13 | XMS_ITS | Patient Health Record ---
Author Organization [facility], [facility] Address [address] [place] [address] Care Team Providers Care Billing Spec Name Role Phone Cyril Ramsey MD Primary Care Provider Unavailab KYRA Gabriel Unavailable [phone] NATHEN PICKARD Unavailable [phone] MEGAN KATERYNA Unavailable [phone] Derek Arzate Unavailable [phone] Allergies Allergen (clinical drug ingredient) Drug/Non Drug Allergy documented on EMR Reaction Allergy Type Onset Date Status phenytoin Dilantin allergy Drug Allergy Active Results Component Value Reference Range Notes Urinalysis, Routine Reviewed date:04/24/2024 12:02:12 PM Interpretation: Performing Lab: Notes/Report: Urine-Color yellow Appearance clear Glucose - Bilirubin - Ketones - Specific [place] 1.015 Occult Blood - pH 6.0 Urine Protein - Urobilinogen,Semi-Qn - Nitrite, Urine - WBC Esterase trace Urinalysis, Routine Reviewed date:05/31/2024 11:52:15 AM Interpretation: Performing Lab: Notes/Report: Urine-Color yellow Appearance clear Glucose - Bilirubin - Ketones - Specific [place] 1.015 Occult Blood - pH 6.0 Urine Protein - Urobilinogen,Semi-Qn - Nitrite, Urine - WBC Esterase 2+ Urinalysis, Routine Reviewed date:02/06/2024 04:43:46 PM Interpretation: Performing Lab: Notes/Report: Urine-Color yellow Appearance clear Glucose - Bilirubin - Ketones - Specific [place] 1.020 Occult Blood 1+ pH 6.0 Urine Protein - Urobilinogen,Semi-Qn - Nitrite, Urine - WBC Esterase - Urinalysis Gross Exam - Gx - Recurrent Persistent Co mplicated UTI Reviewed date:06/04/2024 08:10:55 AM Interpretation: Performing Lab:, [id number] Notes/Report: PatientName: : Gender: PatientRelation: PatientAddress: , , , InsuranceName: InsuranceCode: Test Result: Guidance 7.0, Voided Urine, UTI Surgical, Test Result: PATHOGENIC DNA DETECTED amp; ESBL Positive*#A*F UTIAbnormalFlag: Guidance 7.0, Voided Urine, UTI Surgical, UTIAbnormalFlag: A Reason For Referral Reason [facility] Diagnosis 1 Urinary retention (R 33.9) Diagnosis 2 Chronic suprapubic c atheter (Z93.59) Diagnosis 3 Recurrent UTI (N39.0 ) Referral Organization [facility] Referring Provider First Name KYRA Referring Provider Last Name SHIRIN Referring Provider [facility] penelope Referred Provider Specialty Urology Referral Priority Routine Medications Medication SIG (Take, Route, Frequency, Duration) Notes Start Date End Date Status Meloxicam 15 MG 1 tablet Orally Once a day 11/14/2023 Active Torsemide 40 MG 1 tablet Orally Once a day 11/14/2023 Active Macrobid 100 MG 1 capsule with food Orally every 12 hrs Not-Taking Morphine Sulfate ER 100 MG 1 tablet Oral ly every 12 hrs 11/14/2023 Active Methocarbamol 500 MG 1 tab Orally three times a day 11/14/2023 Active Tamsulosin HCl 0.4 MG 1 capsule Orally t wice a day 11/14/2023 Active Lubiprostone 24 MCG 1 capsule with food and water Orally Twice a day 11/14/2023 Active Docusate Sodium 100 MG 2 capsules as nee ded Orally twice a day 11/14/2023 Active Aspirin 81 MG 1 tablet Orally Once a day 11/14/2023 Active Acetaminophen ER 650 MG 2 tablets as nee ded Orally every 8 hrs Active Vitamin B12 Active Gabapentin 600 MG 1 tablet Orally tw a day 11/14/2023 Active Mucinex 600 MG 2 tablets as needed Orally every 12 hrs 11/14/2023 Active Omeprazole 40 MG 1 capsule 30 minutes before morning meal Orally Once a day 11/14/2023 Active Tibsovo 250 MG 2 tablet Orally Once a day 11/14/2023 Active Social History Tobacco Use: Social History Observation Description Date Details (start date - stop date) Former Smoker NA - NA Tobacco Control (Standard) Question Answer Notes Tobacco use: Former smoker How long has it been since you last smoked? 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 Problem 91460991 Chronic obstructive pulmonary disease, unspecified COPD type (J44.9) Active confirmed Problem Change of urinary catheter bag (procedure) (906767961) Catheter (urine) change required (Z46.6) Active confirmed Problem Bilateral renal cysts (N28.1) Active confirmed Problem Recurrent urinary tract infection (477830723) Recurrent UTI (N39.0) Active confirmed Problem Suprapubic urinary catheter in situ (finding) (548511980) Chronic suprapubic catheter (Z93.59) Active confirmed Problem Urinary retention (411884497) Urinary retention (R33.9) Active confirmed Problem 412295819 Presence of indwelling Reis catheter (Z97.8) Active confirmed Vital Signs Heart Rate 78 /min 05/31/2024 Temperature 97.9 degrees Fahrenheit 03/20/2024 Height-cm 160.02 cm 05/31/2024 Blood pressure diastolic 66 mm Hg 05/31/2024 Weight-kg 96.62 kg 05/31/2024 Height 63 in 05/31/2024 Blood pressure systolic 144 mm Hg 05/31/2024 Weight 213 lbs 05/31/2024 BMI 37.73 kg/m2 05/31/2024 Procedures Procedure Date Ordered Date Performed Result Body Sit e Voiding Trial 11/14/2023 N/A Catheter Insertion-Routine 12/12/2023 N/A Voiding Trial 02/06/2024 02/07/2024 N/A SP Tube Change 05/31/2024 05/31/2024 N/A Encounters Encounter Location Date Provider Diagnosis [facility], [facility] [address] [facility] [place] [address] 11/14/2023 NATHEN PICKARD Urinary retention R33.9 ; Bilateral renal cysts N28.1 ; Metastatic sarcoma C79.89 and Catheter (urine) change required Z46.6 [facility], [facility] [address] [place] [address] 11/28/2023 KYRA CARPIO Dysuria R30.0 [facility], [facility] [address] [facility] [place] [address] 12/12/2023 KATERYNA GUZMAN Urinary retention R33.9 ; Bilateral renal cysts N28.1 ; Metastatic sarcoma C79.89 and Catheter (urine) change required Z46.6 [facility], [facility] [address] [facility] [place] [address] 12/20/2023 KYRA SHIRIN Poor urinary stream R39.12 and Straining during urination R39.16 [facility], [facility] [address] [facility] [place] [address] 02/06/2024 KATERYNA GUZMAN Urinary retention R33.9 ; Bilateral renal cysts N28.1 ; Metastatic sarcoma C79.89 ; Catheter (urine) change required Z46.6 and Recurrent UTI N39.0 [facility], [facility] [address] [facility] [place] [address] 03/20/2024 Derek Pevril Urinary retention R33.9 ; Bilateral renal cysts N28.1 ; Metastatic sarcoma C79.89 and Recurrent UTI N39.0 [facility], [facility] [address] [facility] [place] [address] 04/24/2024 Derek Pevril Urinary retention R33.9 ; Bilateral renal cysts N28.1 ; Metastatic sarcoma C79.89 and Recurrent UTI N39.0 [facility], [facility] [address] [facility] [place] [address] 05/01/2024 KATERYNA GUZMAN Urinary retention R33.9 and Recurrent UTI N39.0 [facility], [facility] [address] [facility] [place] [address] 05/31/2024 KYRA CARPIO Urinary retention R33.9 ; Low back pain M54.50 ; Leukocytes in urine R82.998 ; Recurrent UTI N39.0 and Encounter for attention to cystostomy Z43.5 [facility] [address] [facility] [place] [address] 11/07/2023 KYRA CARPIO [facility], [facility] [address] [facility] [address] [facility] [place] [address] 11/21/2023 NATHEN PICKARD DO NOT USE THIS FACILITY [facility], [facility] [address] [place], [place] [id number] 11/28/2023 KYRA CARPIO [facility] [address] [facility] [place] [address] 12/05/2023 KYRA CARPIO [facility] [address] [facility] [place] [address] 12/05/2023 KYRA CARPIO [facility] [address] [facility] [address] [facility] [place] [address] 02/08/2024 KYRA CARPIO [facility] [address] [facility] [place] [address] 02/09/2024 KATERYNA GUZMAN [facility] [address] [place] [address] 03/22/2024 Derek Mesfinkattyliyah [facility] [address] [facility] [address] [facility] [place] [address] 04/24/2024 KATERYNA GUZMAN [facility] [address] [place] [address] 04/24/2024 KATERYNA GUZMAN Preop testing Z01.81 8 ; Essential (primary) hypertension I10 and Chronic obstructive pulmonary disease, unspecified COPD type J44.9 [facility] [address] [place] [address] 04/25/2024 KYRA CARPIO Preop testing Z01.81 8 ; Urinary retention R33.9 and Potassium (K) deficiency E87.6 [facility] [address] [facility] [place] [address] 04/30/2024 KATERYNA GUZMAN [facility], [facility] [address] [facility] [place] [address] 06/04/2024 KYRA CARPIO Assessments Encounter Date Diagnosis (ICD Code) Assessment Notes Treatment Notes Treatment Clinical Notes Section Notes 11/14/2023 Bilateral renal cysts (ICD-10 - N28.1) 11/14/2023 Urinary retention (ICD-10 - R33.9) Reviewed records from [facility] and PCP. Independantly reviewed CT images as well as radiologic report. She has no evidence of obstructive uropathy. 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 She passed v/t in the office today. She has been given orders for HH to replace reis if she goes >6hr without voiding to avoid another ER visit. Will reassess in 2-3 with UA/PVR and pelvic exam. If she goes back in to retention, she may call and we will change follow up to cystoscopy +/- UDS. 11/28/2023 Dysuria (ICD-10 - R30.0) Pt here today fo r possible uti with complaints of dysuria and abdominal discomfort. Urine amount left in cup was very low volume, and there was only enough specimen to draw up for a PCR. Sending urine for PCR 12/12/2023 Bilateral renal cysts (ICD-10 - N28.1) 68 yo female with urinary retention requiring reis since October 2023. Cysto shows large bladder but no evidence of obstruction. Cysto findings discussed with patient. Plan: voiding trial today schedule UDS next available RTC in 1 month with UDS report and PVR 12/12/2023 Urinary retention (ICD-10 - R33.9) Per Dr Guzman 16fr reis catheter removed using clean technique, after cysto 16fr floely placed using sterile technique, clear yellow urine return, reis balloon filled with 10ml sterile water. 68 yo female with urinary retention requiring reis since October 2023. Cysto shows large bladder but no evidence of obstruction. Cysto findings discussed with patient. Plan: voiding trial today schedule UDS next available RTC in 1 month with UDS report and PVR 12/20/2023 Poor urinary stream (ICD-10 - R39.12) 12/20/2023 Straining during urination (ICD-10 - R39.16) 02/06/2024 Bilateral renal cysts (ICD-10 - N28.1) 68 yo female with urinary retention requiring Reis since October 2023. UDS shows normal compliance and capacity. Max Detrusor pressure at [id number]. VT done today if she passes will f/u in 1 month if not will schedule for SP tube in OR. How the procedure is performed was discussed along with risks/benefits/al ternatives and postprocedural expectations. All question were answered. Plan: RTC in 1 month with Liat Pickard APRN with UA and PVR Kell London Scribe, anastacio scribing for, and in the presence of, Dr. Guzman. I, Dr. Kateryna Guzman, personally performed the services prescribed in this documentation, as scribed by Kell Myers, in my presence, and it is both accurate and complete. 02/06/2024 Urinary retention (ICD-10 - R33.9) 68 yo female with urinary retention requiring Reis since October 2023. UDS shows normal compliance and capacity. Max Detrusor pressure at [id number]. VT done today if she passes will f/u in 1 month if not will schedule for SP tube in OR. How the procedure is performed was discussed along with risks/benefits/al ternatives and postprocedural expectations. All question were answered. Plan: RTC in 1 month with Liat Pickard APRN with UA and PVR IKell Scribe, am scribing for, and in the presence of, Dr. Guzman. I, Dr. Kateryna Guzman, personally performed the services prescribed in this documentation, as scribed by Kell Myers, in my presence, and it is both accurate and complete. 03/20/2024 Bilateral renal cysts (ICD-10 - N28.1) 68 yo female with urinary retention requiring Reis since October 2023. Previous UDS shows normal compliance and capacity. Max Detrusor pressure at [id number]. She actually passed previous VT, however, underwent reis placement a couple of days later with concerns of retention. I discussed on moving foward with reis exchange, however, patient requested to have reis removed, and home health comes tomorrow AM and can place reis if need be. Hand writtent order completed today for this. Given that it now is the afternoon and the home health is scheduled to come in the AM, I am in agreement with this. Either way, to still plan on moving forward with SPT placement after discussion. If SPT placed, then can move forward with bladder training. We discussed options of leaving as is versus scheduling for SPT in OR. She WILL need cardiac clearance obtained to hold her Aspirin. She would like to move forward with this. Given everything discussed and failed outpatient management, we discussed on how the procedure was performed, and we also had further discussion with risks/benefits/al ternatives and postprocedural expectations. Presurgical and what to expect postoperatively was also discussed. Surgery scheduling with schedule procedure accordingly. The plan is to have this done as soon as possible given symptoms. UA today collected with reis change, and sent today for presurgical culture. Patient is agreeable and is eager to have done. For now, no further workup or investigation at this time, and further recommendations following the procedure. All questions that were asked, were answered. Patient satisfied with this plan. 03/20/2024 Urinary retention (ICD-10 - R33.9) 68 yo female with urinary retention requiring Reis since October 2023. Previous UDS shows normal compliance and capacity. Max Detrusor pressure at [id number]. She actually passed previous VT, however, underwent reis placement a couple of days later with concerns of retention. I discussed on moving foward with reis exchange, however, patient requested to have reis removed, and home health comes tomorrow AM and can place reis if need be. Hand writtent order completed today for this. Given that it now is the afternoon and the home health is scheduled to come in the AM, I am in agreement with this. Either way, to still plan on moving forward with SPT placement after discussion. If SPT placed, then can move forward with bladder training. We discussed options of leaving as is versus scheduling for SPT in OR. She WILL need cardiac clearance obtained to hold her Aspirin. She would like to move forward with this. Given everything discussed and failed outpatient management, we discussed on how the procedure was performed, and we also had further discussion with risks/benefits/al ternatives and postprocedural expectations. Presurgical and what to expect postoperatively was also discussed. Surgery scheduling with schedule procedure accordingly. The plan is to have this done as soon as possible given symptoms. UA today collected with reis change, and sent today for presurgical culture. Patient is agreeable and is eager to have done. For now, no further workup or investigation at this time, and further recommendations following the procedure. All questions that were asked, were answered. Patient satisfied with this plan. 04/24/2024 Urinary retention (ICD-10 - R33.9) 69 yo female with urinary retention requiring Reis since October 2023. Previous UDS shows normal compliance and capacity. Max Detrusor pressure at [id number]. She actually passed previous VT, however, underwent reis placement a couple of days later with concerns of retention. I discussed on moving foward with reis exchange, however, patient requested to have reis removed, and home health comes tomorrow AM and can place reis if need be. Hand written order completed today for this. Given that it now is the afternoon and the home health is scheduled to come in the AM, I am in agreement with this. Either way, to still plan on moving forward with SPT placement after discussion. If SPT placed, then can move forward with bladder training. We discussed options of leaving as is versus scheduling for SPT in OR. We have gained cardiac clearance obtained to hold her Aspirin. She would like to move forward with this. Given everything discussed and failed outpatient management, we discussed on how the procedure was performed, and we also had further discussion with risks/benefits/al ternatives and postprocedural expectations. Presurgical and what to expect postoperatively was also discussed. This is scheduled. UA today collected with reis change, and sent today for presurgical culture. Reis was changed over the weekend with home health. Patient is agreeable and is eager to have done. For now, no further workup or investigation at this time, and further recommendations following the procedure. All questions that were asked, were answered. Patient satisfied with this plan. 04/25/2024 Preop testing (ICD-10 - Z01.818) 05/01/2024 Recurrent UTI (ICD-10 - N39.0) 05/01/2024 Urinary retention (ICD-10 - R33.9) 05/31/2024 Low back pain (ICD-10 - M54.50) 05/31/2024 Urinary retention (ICD-10 - R33.9) 04/24/2024 Preop testing (ICD-10 - Z01.818) 04/24/2024 Essential (primary) hypertension (ICD-10 - I10) 05/31/2024 Leukocytes in urine (ICD-10 - R82.998) 04/25/2024 Urinary retention (ICD-10 - R33.9) 04/24/2024 Bilateral renal cysts (ICD-10 - N28.1) 69 yo female with urinary retention requiring Reis since October 2023. Previous UDS shows normal compliance and capacity. Max Detrusor pressure at [id number]. She actually passed previous VT, however, underwent reis placement a couple of days later with concerns of retention. I discussed on moving foward with reis exchange, however, patient requested to have reis removed, and home health comes tomorrow AM and can place reis if need be. Hand written order completed today for this. Given that it now is the afternoon and the home health is scheduled to come in the AM, I am in agreement with this. Either way, to still plan on moving forward with SPT placement after discussion. If SPT placed, then can move forward with bladder training. We discussed options of leaving as is versus scheduling for SPT in OR. We have gained cardiac clearance obtained to hold her Aspirin. She would like to move forward with this. Given everything discussed and failed outpatient management, we discussed on how the procedure was performed, and we also had further discussion with risks/benefits/al ternatives and postprocedural expectations. Presurgical and what to expect postoperatively was also discussed. This is scheduled. UA today collected with reis change, and sent today for presurgical culture. Reis was changed over the weekend with home health. Patient is agreeable and is eager to have done. For now, no further workup or investigation at this time, and further recommendations following the procedure. All questions that were asked, were answered. Patient satisfied with this plan. 03/20/2024 Metastatic sarcoma (ICD-10 - C79.89) 68 yo female with urinary retention requiring Reis since October 2023. Previous UDS shows normal compliance and capacity. Max Detrusor pressure at 90nnN19. She actually passed previous VT, however, underwent reis placement a couple of days later with concerns of retention. I discussed on moving foward with reis exchange, however, patient requested to have reis removed, and home health comes tomorrow AM and can place reis if need be. Hand writtent order completed today for this. Given that it now is the afternoon and the home health is scheduled to come in the AM, I am in agreement with this. Either way, to still plan on moving forward with SPT placement after discussion. If SPT placed, then can move forward with bladder training. We discussed options of leaving as is versus scheduling for SPT in OR. She WILL need cardiac clearance obtained to hold her Aspirin. She would like to move forward with this. Given everything discussed and failed outpatient management, we discussed on how the procedure was performed, and we also had further discussion with risks/benefits/al ternatives and postprocedural expectations. Presurgical and what to expect postoperatively was also discussed. Surgery scheduling with schedule procedure accordingly. The plan is to have this done as soon as possible given symptoms. UA today collected with reis change, and sent today for presurgical culture. Patient is agreeable and is eager to have done. For now, no further workup or investigation at this time, and further recommendations following the procedure. All questions that were asked, were answered. Patient satisfied with this plan. 11/14/2023 Metastatic sarcoma (ICD-10 - C79.89) 02/06/2024 Metastatic sarcoma (ICD-10 - C79.89) 68 yo female with urinary retention requiring Reis since October 2023. UDS shows normal compliance and capacity. Max Detrusor pressure at [id number]. VT done today if she passes will f/u in 1 month if not will schedule for SP tube in OR. How the procedure is performed was discussed along with risks/benefits/al ternatives and postprocedural expectations. All question were answered. Plan: RTC in 1 month with Liat Pickard APRN with UA and PVR IKell Scribe, am scribing for, and in the presence of, Dr. Guzman. I, Dr. Kateryna Guzman, personally performed the services prescribed in this documentation, as scribed by Kell Myers, in my presence, and it is both accurate and complete. 12/12/2023 Metastatic sarcoma (ICD-10 - C79.89) 68 yo female with urinary retention requiring reis since October 2023. Cysto shows large bladder but no evidence of obstruction. Cysto findings discussed with patient. Plan: voiding trial today schedule UDS next available RTC in 1 month with UDS report and PVR 12/12/2023 Catheter (urine) change required (ICD-10 - Z46.6) 68 yo female with urinary retention requiring reis since October 2023. Cysto shows large bladder but no evidence of obstruction. Cysto findings discussed with patient. Plan: voiding trial today schedule UDS next available RTC in 1 month with UDS report and PVR 02/06/2024 Catheter (urine) change required (ICD-10 - Z46.6) 68 yo female with urinary retention requiring Reis since October 2023. UDS shows normal compliance and capacity. Max Detrusor pressure at [id number]. VT done today if she passes will f/u in 1 month if not will schedule for SP tube in OR. How the procedure is performed was discussed along with risks/benefits/al ternatives and postprocedural expectations. All question were answered. Plan: RTC in 1 month with Liat Pickard APRN with UA and PVR I, Kell Myers, Scribe, am scribing for, and in the presence of, Dr. Guzman. I, Dr. Kateryna Guzman, personally performed the services prescribed in this documentation, as scribed by Kell Myers, in my presence, and it is both accurate and complete. 11/14/2023 Catheter (urine) change required (ICD-10 - Z46.6) 03/20/2024 Recurrent UTI (ICD-10 - N39.0) 68 yo female with urinary retention requiring Reis since October 2023. Previous UDS shows normal compliance and capacity. Max Detrusor pressure at [id number]. She actually passed previous VT, however, underwent reis placement a couple of days later with concerns of retention. I discussed on moving foward with reis exchange, however, patient requested to have reis removed, and home health comes tomorrow AM and can place reis if need be. Hand writtent order completed today for this. Given that it now is the afternoon and the home health is scheduled to come in the AM, I am in agreement with this. Either way, to still plan on moving forward with SPT placement after discussion. If SPT placed, then can move forward with bladder training. We discussed options of leaving as is versus scheduling for SPT in OR. She WILL need cardiac clearance obtained to hold her Aspirin. She would like to move forward with this. Given everything discussed and failed outpatient management, we discussed on how the procedure was performed, and we also had further discussion with risks/benefits/al ternatives and postprocedural expectations. Presurgical and what to expect postoperatively was also discussed. Surgery scheduling with schedule procedure accordingly. The plan is to have this done as soon as possible given symptoms. UA today collected with reis change, and sent today for presurgical culture. Patient is agreeable and is eager to have done. For now, no further workup or investigation at this time, and further recommendations following the procedure. All questions that were asked, were answered. Patient satisfied with this plan. 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 Previous UDS shows normal compliance and capacity. Max Detrusor pressure at [id number]. She actually passed previous VT, however, underwent reis placement a couple of days later with concerns of retention. I discussed on moving foward with reis exchange, however, patient requested to have reis removed, and home health comes tomorrow AM and can place reis if need be. Hand written order completed today for this. Given that it now is the afternoon and the home health is scheduled to come in the AM, I am in agreement with this. Either way, to still plan on moving forward with SPT placement after discussion. If SPT placed, then can move forward with bladder training. We discussed options of leaving as is versus scheduling for SPT in OR. We have gained cardiac clearance obtained to hold her Aspirin. She would like to move forward with this. Given everything discussed and failed outpatient management, we discussed on how the procedure was performed, and we also had further discussion with risks/benefits/al ternatives and postprocedural expectations. Presurgical and what to expect postoperatively was also discussed. This is scheduled. UA today collected with reis change, and sent today for presurgical culture. Reis was changed over the weekend with home health. Patient is agreeable and is eager to have done. For now, no further workup or investigation at this time, and further recommendations following the procedure. All questions that were asked, were answered. Patient satisfied with this plan. 04/25/2024 Potassium (K) deficiency (ICD-10 - E87.6) 05/31/2024 Recurrent UTI (ICD-10 - N39.0) 04/24/2024 Chronic obstructive pulmonary disease, unspecified COPD type (ICD-10 - J44.9) 05/31/2024 Encounter for attention to cystostomy (ICD-10 - Z43.5) 04/24/2024 Recurrent UTI (ICD-10 - N39.0) 69 yo female with urinary retention requiring Reis since October 2023. Previous UDS shows normal compliance and capacity. Max Detrusor pressure at [id number]. She actually passed previous VT, however, underwent reis placement a couple of days later with concerns of retention. I discussed on moving foward with reis exchange, however, patient requested to have reis removed, and home health comes tomorrow AM and can place reis if need be. Hand written order completed today for this. Given that it now is the afternoon and the home health is scheduled to come in the AM, I am in agreement with this. Either way, to still plan on moving forward with SPT placement after discussion. If SPT placed, then can move forward with bladder training. We discussed options of leaving as is versus scheduling for SPT in OR. We have gained cardiac clearance obtained to hold her Aspirin. She would like to move forward with this. Given everything discussed and failed outpatient management, we discussed on how the procedure was performed, and we also had further discussion with risks/benefits/al ternatives and postprocedural expectations. Presurgical and what to expect postoperatively was also discussed. This is scheduled. UA today collected with reis change, and sent today for presurgical culture. Reis was changed over the weekend with home health. Patient is agreeable and is eager to have done. For now, no further workup or investigation at this time, and further recommendations following the procedure. All questions that were asked, were answered. Patient satisfied with this plan. 02/06/2024 Recurrent UTI (ICD-10 - N39.0) 68 yo female with urinary retention requiring Reis since October 2023. UDS shows normal compliance and capacity. Max Detrusor pressure at [id number]. VT done today if she passes will f/u in 1 month if not will schedule for SP tube in OR. How the procedure is performed was discussed along with risks/benefits/al ternatives and postprocedural expectations. All question were answered. Plan: RTC in 1 month with Liat Pickard APRN with UA and PVR IKell Scribe, am scribing for, and in the presence of, Dr. Guzman. I, Dr. Kateryna Guzman, personally performed the services prescribed in this documentation, as scribed by Kell Myers, in my presence, and it is both accurate and complete. 11/14/2023 Other Pt here for VT. 300 ml sterile water instilled and pt voided 300 clear yellow urine without difficulty PASSED. Po fluids encouraged. Pt instructed to call us or go to ER if unable to void. Verbalized understanding. 05/31/2024 Other SP tube changed today. Her home health will be changing SP tube from here on. Patient reports symptoms of UTI. Rx sent in, urine sent for PCR. Also, her insurance no longer covers our clinic, so she is requesting referral to [facility] in [place]. Plan Of Treatment Pending Test Test Name Order Date Chest X-ray PA and lateral [id number] CULTURE, URINE, ROUTINE (395) 04/24/2024 CULTURE, URINE, ROUTINE (395) 04/24/2024 Voiding Trial 11/14/2023 Catheter Insertion-Routine 12/12/2023 Basic Metabolic Panel 04/25/2024 Basic Metabolic Panel 04/24/2024 CBC w/ Auto Diff 04/24/2024 Electrocardiogram, 12 Lead Tracing-[id number] 04/24/2024 Medical (General) History Medical History History ICD Code sarcoma right leg and groin REINA CAD pneumonia HTN degenerative arthritis COPD non melanoma skin cancer heart failure with preserved EF sleep apnea GERD Conn syndrome Surgical History Surgery Date(Month/Year) appendectomy back suergy neck surgery hysterectomy krystin hip surgeries 2 sarcoma surgeries cholecystectomy hernia repairs x2 carpal tunnel port a cath tubal ligation Hospitalization History Reason Date(Month/Year) above covid 02/2024 6 months in [facility] sarcoma alia matty 01/2023
--- OUTSIDE RECORDS SUMMARY | 2024-11-06 12:14 | XMS_ITS | Clinical Summary ---
Author Organization [facility] Address [address] [place] [address] Care Team Providers Care Country Manager Name Role Phone Ok Sanchez MD Primary Care Provider Allergies Active Allergy Reactions Criticality Noted Date Comments Penicillins Rash Low 09/30/2012 Phenytoin Sodium Extended Rash Low 10/27/2013 Medications CHLORDIAZEPOXIDE /CLIDINIUM BR (LIBRAX, WITH CLIDINIUM, ORAL) Take by mouth. 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 Active LORazepam (ATIVAN) 1 mg tablet Take 1 mg by mouth every 4 hours as needed for Anxiety. Active nicotine (NICODERM CQ) 7 mg/24 hr patch Apply 1 Patch to skin as directed daily. 7 Patch 0 5 Active aluminum - magnesium - simethicone (MAALOX ADVANCED) 200-200-20 mg/5 mL Suspension Take 10 mL by mouth every 6 hours as needed for Dyspepsia. 148 mL 0 5 Active omeprazole (PRILOSEC) 20 mg Capsule, Delayed Release(E.C.) Take 1 Cap (20 mg) by mouth 2 times daily. 30 Cap 5 5 Active lisinopril (PRINIVIL) 10 mg tablet Take 1 Tab (10 mg) by mouth daily. 30 Tab 11 5 Active DULoxetine (CYMBALTA) 60 mg Capsule, Delayed Release(E.C.) Take 60 mg by mouth daily. 8 Active spironolactone (ALDACTONE) 50 mg tablet Take 50 mg by mouth daily. Active pantoprazole (PROTONIX) 40 mg Tablet, Delayed Release (E.C.) Take 40 mg by mouth 2 times daily. Active celecoxib (CeleBREX) 100 mg capsule Take 100 mg by mouth 2 times daily. Active Active Problems Problem Noted Date Diagnosed Date Syncope and collapse 11/09/2014 Tobacco abuse 11/09/2014 HTN (hypertension), benign 11/09/2014 Depression 11/09/2014 Anxiety 11/09/2014 LBBB (left bundle branch block) 11/09/2014 Chest pain 11/09/2014 Positive D dimer 11/09/2014 Nocturnal hypoxemia 11/09/2014 N&V (nausea and vomiting) 10/27/2013 UTI (lower urinary tract infection) 10/27/2013 Dysphagia 10/24/2012 GERD (gastroesophageal reflux disease) 3 Palpitations Syncope Resolved Problems Problem Noted Date Diagnosed Date Resolved Date Status post placement of imp lantable loop recorder 07/01/2015 05/31/2018 Immunizations Immunization Administration Dates Next Due Influenza Seasonal Unspecified Formulation IM Family History Medical History Relation Name Comments Colon Cancer Neg Hx Social History Tobacco Use Types Packs/Day Years Used Date Smoking Tobacco: Former Cigarettes 1.5 30 0 07/14/1986 - 07/14/2016 Smokeless Tobacco: Never Alcohol Use Standard Drinks/Week Comments No 0 (1 standard drink = 0.6 oz pur e alcohol) Comments No Sex and Gender Information Value Date Recorded Sex Assigned at Not on file Legal Sex Female 2:53 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 Gender Identity Not on file Sexual Orientation Not on file Occupation Industry Job Start Date Job End Date Not on file Not on file Not on file Not on file Last Filed Vital Signs Vital Sign Reading Time Taken Comments Blood Pressure 159/68 04/27/2018 10:55 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 Pulse 95 04/27/2018 10:55 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 Temperature 37.5 C (99.5 F) 04/27/2018 7:05 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 Respiratory Rate 18 04/27/2018 10:55 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 Oxygen Saturation 98% 04/27/2018 10:55 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 Inhaled Oxygen Concentration - - Weight 85 kg (187 lb 6.3 oz) 04/27/2018 7:05 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 Height 162.6 cm (5' 4 ) 04/27/2018 7:05 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 Body Mass Index 32.17 04/27/2018 7:05 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 Plan of Treatment Health Maintenance Due Date Last Done Comments Pre-Diabetes and Diabetes Screening 1955 DTAP/TDAP/TD VACCINES (1 - Tdap) 1975 BREAST CANCER SCREENING 1996 FIT-DNA Q 3 years 2001 FIT/FOBT Q 1 year 2001 Flex Sig/CT Colonography Q 5 years 2001 ZOSTER VACCINE (1 of 2) 2006 RSV VACCINE (60+ or ) (1 - Risk 60-74 years 1-dose series) 2016 COLORECTAL SCREENING 11/06/2018 11/06/2013, 11/01/19 14 Colorectal Cancer Screening 11/06/2018 OSTEOPOROSIS SCREENING 2021 PNEUMOCOCCAL VACCINE 50+ YEA RS (2 of 2 - PCV) 04/23/2021 04/23/2020, 01/21/2020 INFLUENZA VACCINE (#1) 2023 03/01/2018, 2013 Insurance GENERIC PAYOR Advance Directives For more information, please contact: [phone] * Full Code (Latest Code Status on File) Date Activated Date Inactivated Comments 04/27/2018 6:29 AM 04/27/2018 1:23 PM * Full Code Date Activated Date Inactivated Comments 12/20/2014 5:37 AM 12/20/2014 1:22 PM * Full Code Date Activated Date Inactivated Comments 11/10/2014 3:14 AM 11/12/2014 1:48 AM * Full Code Date Activated Date Inactivated Comments 10/31/2013 1:56 PM 11/01/2013 6:44 PM * Full Code Date Activated Date Inactivated Comments 10/27/2013 10:33 PM 10/31/2013 1:56 PM Care Teams Country Manager Relationship Specialty Start Date End Date Ok Sanchez MD PCP - General Internal Medicine 10/01/12
--- OUTSIDE RECORDS SUMMARY | 2024-11-06 12:14 | XMS_ITS | Clinical Summary ---
Author Organization [facility] Address [address] Low: Epic Prelude ADT JOSEPH WHALEY [address] Care Team Providers Care Cigar Head Perforator Name Role Phone Unavailable Primary Care Provider Unavailabl e Allergies Active Allergy Reactions Criticality Noted Date Comments Phenytoin Sodium Extended Rash Low 10/27/2013 Medications acetaminophen (TYLENOL) 500 mg tablet Take 2 Tablets (1,000 mg) by mouth every 8 hours as needed for Pain, Temperature, Pain, Mild or Pain, Moderate (Can alternate with Oxy for moderate pain). 3 Active aluminum - magnesium - simethicone (MYLANTA) 200-200-20 mg/5 mL Suspension Take 30 mL by mouth every 4 hours as needed for Indigestion. 3 Active docusate sodium (COLACE) 100 mg capsule Take 1 Capsule (100 mg) by mouth 2 times daily. 3 Active famotidine (PEPCID) 20 mg tablet Take 1 Tablet (20 mg) by mouth 2 times daily. 60 Tablet 3 Active escitalopram oxalate (LEXAPRO) 20 mg tablet Take 1 Tablet (20 mg) by mouth daily. 30 Tablet 3 Active DULoxetine (CYMBALTA) 30 mg Capsule, Delayed Release(E.C.) Take 1 Capsule (30 mg) by mouth daily. 30 Capsule 3 Active fluticasone furoate-vilanter oL (BREO ELLIPTA) 100-25 mcg/dose Disk with Device Take 1 Puff by inhalation daily. 1 Each 3 Active gabapentin (NEURONTIN) 300 mg capsule Take 2 Capsules (600 mg) by mouth 2 times daily. 60 Capsule 3 Active pantoprazole (PROTONIX) 40 mg Tablet, Delayed Release (E.C.) Take 1 Tablet (40 mg) by mouth 2 times daily. 60 Tablet 3 Active tamsulosin (FLOMAX) 0.4 mg capsule Take 1 Capsule (0.4 mg) by mouth daily after supper. 30 Capsule 3 Active torsemide 40 mg Tablet Take 40 mg by mouth daily. 30 Tablet 3 Active guaiFENesin (Mucinex) Tablet Extended Release 12hr Take 1 Tablet (1,200 mg) by mouth 2 times daily. 60 Tablet 3 Active hydrOXYzine HCL (ATARAX) 50 mg tablet Take 1 Tablet (50 mg) by mouth every 8 hours as needed for Anxiety. 10 Tablet 3 Active Lidocaine 4 % Adhesive Patch, Medicated Apply 1 Patch to affected area every 24 hours. 7 Patch 3 Active methocarbamoL (ROBAXIN) 1,000 mg Tablet tablet Take 1 Tablet (1,000 mg) by mouth every 8 hours as needed for Spasm. 30 Tablet 3 Active nitroglycerin (NITROSTAT) 0.4 mg Tablet, Sublingual Place 1 Tablet (0.4 mg) under tongue every 5 minutes as needed for Chest Pain. 10 Tablet 3 Active naloxone (NARCAN) 4 mg/spray D Hanis, Non-Aerosol EMERGENCY USE ONLY: Administer 1 spray (4 mg) in one nostril one time. May repeat in alternating nostrils every 2-3 min until responsive or EMS arrives. 2 Each 3 3 Active morphine (MS CONTIN) 100 mg Controlled Release tablet TAKE 1 TABLET BY MOUTH TWICE DAILY FOR PAIN FOR 30 DAYS Active aspirin (ECOTRIN EC) 81 mg Tablet, Delayed Release (E.C.) Take 1 tablet (81 mg total) by mouth 2 (two) times a day 3 Active CYANOCOBALAMIN, VITAMIN B-12, ORAL Take by mouth. Activ e lubiprostone (AMITIZA) 24 mcg Capsule Take 24 mcg by mouth 2 times daily with meals. Active meloxicam (MOBIC) 15 mg tablet Take 15 mg by mouth daily. Active bumetanide (BUMEX) 2 mg tablet Take 2 mg by mouth 2 times daily. 5 Active ivosidenib (Tibsovo) 250 mg tablet Take 500 mg by mouth daily. Active methenamine-meth ylene blue-Na biphosphate-phen yl salicylate-hyosc yamine (URIBEL) 118-10-40.8-36 mg cap Take 1 Capsule by mouth every 12 hours. 180 Capsule 3 5 Active Active Problems Problem Noted Date Diagnosed [...] GERD (gastroesophageal reflux disease) 3 Syncope Palpitations Resolved Problems Problem Noted Date Diagnosed Date Resolved Date Status post placement of imp lantable loop recorder 07/01/2015 05/31/2018 Encounters Date Type Department Care Team Description 10/03/2024 External Device Data STL ABSTRACTION Provider, Abstract 10/02/2024 External Device Data STL ABSTRACTION Provider, Abstract 08/28/2024 3:45 PM CDT Office Visit [facility] [place] [address] [place] [address] Juan Coyle MD PAD (peripheral artery disease) (Primary Dx) 08/28/2024 2:30 PM CDT Ancillary Procedure [facility]- [address] [place] [address] Juan Coyle MD PAD (peripheral artery disease) 08/28/2024 External Device Data STL ABSTRACTION Provider, Abstract 08/06/2024 Telephone [facility] [address] [place] [address] Juan Coyle MD Follow Up; Needs Appointment from Last 3 Months Immunizations Immunization Administration Dates Next Due Influenza Seasonal Unspecified Formulation IM Family History Medical History Relation Name Comments Colon Cancer Neg Hx Social History Tobacco Use Types Packs/Day Years Used Date Smoking Tobacco: Former Cigarettes Q uit: 07/14/2016 Smokeless Tobacco: Never Tobacco Cessation:Counseling Given: Not Answered Alcohol Use Standard Drinks/Week Comments No 0 (1 standard drink = 0.6 oz pur e alcohol) Feeling Safe Answer Date Recorded Are you in a relationship wi th someone who hurts you emotionally and/or physically? 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 Gender Identity Not on file Sexual Orientation Not on file Last Filed Vital Signs Vital Sign Reading Time Taken Comments Blood Pressure 148/82 08/28/2024 3:35 PM CDT Pulse 88 08/28/2024 3:35 PM CDT Temperature 37.4 C (99.3 F) 11/22/2023 3:26 PM CDT Respiratory Rate 20 11/22/2023 4:45 PM CDT Oxygen Saturation 97% 08/28/2024 3:35 PM CDT Inhaled Oxygen Concentration - - Weight 100.2 kg (221 lb) 08/28/2024 3:35 PM CDT Height 160 cm (5' 3 ) 08/28/2024 3:35 PM CDT Body Mass Index 39.15 08/28/2024 3:35 PM CDT Plan of Treatment Health Maintenance Due Date Last Done Comments Pre-Diabetes and Diabetes Screening 1955 DTAP/TDAP/TD VACCINES (1 - Tdap) 1975 BREAST CANCER SCREENING 1996 FIT-DNA Q 3 years 2001 FIT/FOBT Q 1 year 2001 Flex Sig/CT Colonography Q 5 years 2001 ZOSTER VACCINE (1 of 2) 2006 RSV VACCINE (60+ or ) (1 - Risk 60-74 years 1-dose series) 2016 COLORECTAL SCREENING 10/31/2018 10/31/2013 Colorectal Cancer Screening 10/31/2018 OSTEOPOROSIS SCREENING 2021 PNEUMOCOCCAL VACCINE 50+ YEA RS (2 of 2 - PCV) 04/23/2021 04/23/2020, 01/21/2020 INFLUENZA VACCINE (#1) 2023 , 03/01/2018, 02/13/2014 COVID-19 Vaccine ( season) 01/15/202412/2020, 12/11/2020 Medical Devices Implanted Type Area Spray Pilot Device Identifier Shelf Expiration Date Model / Serial / Lot Port-06/30/2022 Implanted:Qty: 1 on 06/30/2022 Port Left: Chest [employer] [id number] / [id number] / [id number] Description:Implanted by [facility] 06/30/2022. Procedures Procedure Name Priority Date/Time Associated Diagnosis Comments US ANKLE BRACHIAL INDEX W TREADMILL Routine 08/28/2024 3:56 PM CDT PAD (peripheral artery disease) from Last 3 Months Results * US ANKLE BRACHIAL INDEX W TREADMILL (08/28/2024 3:56 PM CDT) Anatomical Region Laterality Modality Lower Extremity Ultrasound 08/28/2024 2:36 PM CDT Narrative 10/19/2024 9:21 AM CDT [facility] [address] [place] [address] Noninvasive Vascular Lab Multilevel Lower Extremity Evaluation with Exercise Arterial Physiologic Evaluation Patient: Dennise Funes Study ID: US BELIA w/Stress Gender: F : 1955 Age: 69 Room: Height: Weight: BSA: Pt status: Outpatient Study Date: 08/28/2024 Study Time: 02:36:00 PM BSA: Ordering: Juan Coyle Interpreting:Sonny Smart MD, RPVI Lawyers: Kimo Umanzor Food Broker:Rita Farr Indications: PAD. Summary Impression: 1. Study demonstrates moderate arterial insufficiency at rest and post exercise involving the right lower extremity. 2. No arterial insufficiency at rest and moderate arterial insufficiency post exercise involving the left lower extremity. 3. Disease progression compared to the prior exam on 06/01/24. 4. Note BP increase with exercise. Study data: Lower extremity multilevel physiologic evaluation with exercise. Ankle-brachial index and pulse volume recording. Location: Vascular laboratory. Patient status: Outpatient. Study status: Routine. Procedure: A vascular evaluation was performed. Exam quality was good. Arterial flow: - Right posterior tibial: Right posterior tibial Biphasic - Right dorsal pedal: Right dorsal pedal Biphasic - Left posterior tibial: Left posterior tibial Triphasic - Left dorsal pedal: Left dorsal pedal Triphasic Pulse volume recordings: - R ankle Mildly dampened - L ankle Mildly dampened Photoplethysmography: - R 1st toe Moderately dampened - R 2nd toe Moderately dampened - R 3rd toe Moderately dampened - R 4th toe Moderately dampened - R 5th toe Moderately dampened - L 1st toe Moderately dampened - L 2nd toe Moderately dampened - L 3rd toe Moderately dampened - L 4th toe Moderately dampened - L 5th toe Moderately dampened Ankle brachial indices - Baseline Baseline Rt PT: 94mm Hg Rt DP: 67mm Hg Rt PT: 0.78 Rt DP: 0.56 Lt PT: 118mm Hg Lt DP: 95mm Hg Lt PT: 0.98 Lt DP: 0.79 - 1 min post-exercise 1 min post-exercise Rt PT: 93mm Hg Rt PT: 0.54 Lt PT: 131mm Hg Lt PT: 0.77 - 3 min post-exercise 3 min post-exercise Rt PT: 116mm Hg Rt PT: 0.75 Lt PT: 134mm Hg Lt PT: 0.87 - 5 min post-exercise 5 min post-exercise Rt PT: 113mm Hg Rt PT: 0.81 Lt PT: 124mm Hg Lt PT: 0.89 - 10 min post-exercise 10 min post-exercise Rt PT: 112mm Hg Rt PT: 0.85 Lt PT: 123mm Hg Lt PT: 0.93 Brachial pressures: - Rt brachial pressure (sys): 113mm Hg - Lt brachial pressure (sys): 120mm Hg - Max brachial pressure (sys): 120mm Hg [facility] is accredited with the Intersocietal Commission for the Accreditation of Vascular Laboratories (ICAVL) Prepared and Electronically Authenticated Sonny Smart MD, RPVI Confirmed 10/19/2024 09:21 Procedure Note Sonny Smart MD - 10/19/2024 [facility] [address] [place] [id number] Noninvasive Vascular Lab Multilevel Lower Extremity Evaluation with Exercise Arterial Physiologic Evaluation Patient: Dennise Funes Study ID: US BELIA w/Stress Gender: F : 1955 Age: 69 Room: Height: Weight: BSA: Pt status: Outpatient Study Date: 08/28/2024 Study Time: 02:36:00 PM BSA: Ordering: Juan Coyle Interpreting:Sonny Smart MD, VI Lawyers: Kimo Umanzor Food Broker:Rita Farr Indications: PAD. Summary Impression: 1. Study demonstrates moderate arterial insufficiency at rest and post exercise involving the right lower extremity. 2. No arterial insufficiency at rest and moderate arterial insufficiencypost exercise involving the left lower extremity. 3. Disease progression compared to the prior exam on 06/01/24. 4. Note BP increase with exercise. Study data: Lower extremity multilevel physiologic evaluation withexercise. Ankle-brachial index and pulse volume recording. Location: Vascular laboratory. Patient status: Outpatient. Study status: Routine. Procedure: A vascular evaluation was performed. Exam quality was good. Arterial flow: - Right posterior tibial: Right posterior tibial Biphasic - Right dorsal pedal: Right dorsal pedal Biphasic - Left posterior tibial: Left posterior tibial Triphasic - Left dorsal pedal: Left dorsal pedal Triphasic Pulse volume recordings: - R ankle Mildly dampened - L ankle Mildly dampened Photoplethysmography: - R 1st toe Moderately dampened - R 2nd toe Moderately dampened - R 3rd toe Moderately dampened - R 4th toe Moderately dampened - R 5th toe Moderately dampened - L 1st toe Moderately dampened - L 2nd toe Moderately dampened - L 3rd toe Moderately dampened - L 4th toe Moderately dampened - L 5th toe Moderately dampened Ankle brachial indices - Baseline Baseline Rt PT: 94mm Hg Rt DP: 67mm Hg Rt PT: 0.78 Rt DP: 0.56Lt PT: 118mm Hg Lt DP: 95mm Hg Lt PT: 0.98 Lt DP: 0.79 - 1 min post-exercise 1 min post-exercise Rt PT: 93mm Hg Rt PT: 0.54 LtPT: 131mm Hg Lt PT: 0.77 - 3 min post-exercise 3 min post-exercise Rt PT: 116mm Hg Rt PT: 0.75 LtPT: 134mm Hg Lt PT: 0.87 - 5 min post-exercise 5 min post-exercise Rt PT: 113mm Hg Rt PT: 0.81 LtPT: 124mm Hg Lt PT: 0.89 - 10 min post-exercise 10 min post-exercise Rt PT: 112mm Hg Rt PT: 0.85 LtPT: 123mm Hg Lt PT: 0.93 Brachial pressures: - Rt brachial pressure (sys): 113mm Hg - Lt brachial pressure (sys): 120mm Hg - Max brachial pressure (sys): 120mm Hg [facility] is accredited withthe Intersocietal Commission for the Accreditation of Vascular Laboratories (ICAVL) Prepared and Electronically Authenticated Sonny Smart MD, RPVI Confirmed 10/19/2024 09:21 Juan Coyle MD ORDERABLES Final Result from Last 3 Months Insurance [facility] DUAL COMPLETE HMO [facility] [id number] Advance Directives For more information, please contact: [phone] * Full Code (Latest Code Status on File) Date Activated Date Inactivated Comments 03/19/2023 6:39 PM 03/29/2023 3:54 PM * Full Code Date Activated Date Inactivated Comments 02/28/2023 1:59 PM 03/07/2023 11:34 AM * Default Full Code - Needs Discussion Date Activated Date Inactivated Comments 02/24/2023 10:37 AM 02/28/2023 1:59 PM
--- OUTSIDE RECORDS SUMMARY | 2024-11-06 12:14 | XMS_ITS | Encounter Summary ---
Author Organization [facility] Address [address] [place] [address] Care Team Providers Care Art Model Name Role Phone Ok Sanchez MD Primary Care Provider Reason for Referral * Auth/Cert (Routine) Specialty Diagnoses / Procedures Referred By Contac t Referred To Contact Cardiology Diagnoses Encounter for loop recorder at end of battery life Procedures CL EVENT RECORDER REMOVAL Anastasia Lee MD Phone: tel: fax: [facility] Cardiac Water Purification Chemist [address] [place] [address] Phone: tel: fax: Referral ID Status Reason Start Date Expiration Date Visits Re quested Visits Authorized [id number] 03/22/2018 2019 1 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 Encounter Details Date Type Department Care Team (Late st Contact Info) Description 03/22/2018 Ancillary Orders [facility] Cardiology- [place] [address] [place] [address] Anastasia Lee MD [address] [place] [address] Encounter for loop recorder at end of battery life Social History Tobacco Use Types Packs/Day Years Used Date Smoking Tobacco: Every Day Cigarettes 1.5 30 Smokeless Tobacco: Never Alcohol Use Standard Drinks/Week Comments No 0 (1 standard drink = 0.6 oz pur e alcohol) Comments No Sex and Gender Information Value Date Recorded Sex Assigned at Not on file Legal 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 Exam was auto-finalized as part of the [employer] Single Instance conversion project. Procedure Note Darron Veliz - 10/31/2020 Order information only. Exam was auto-finalized as part of the [employer] Single Instance conversion project. us Anastasia Lee MD FLUOROSCOPY ORDERABLES Final Result documented in this encounter Visit Diagnoses Diagnosis Encounter for loop recorder at end of battery life Encounter for loop recorder at end of battery life documented in this encounter Care Teams Art Model Relationship Specialty Start Date End Date Ok Sanchez MD PCP - General Internal Medicine 10/01/12 documented as of this encounter
[2024-11-06 14:29] VITALS: BP 130/53; PULSE 75; TEMP 37.1; O2SAT 93
--- NOTE | 2024-11-06 14:29 | CT_ITS ---
WS: [id number] CT CHEST ANGIOGRAPHY WITH REFORMATS HISTORY: hypoxia/CA/leg pain swelling TECHNIQUE: Contiguous axial images are obtained through the chest during arterial injection of intravenous contrast. Images are reconstructed to evaluate the pulmonary arteries. MIP imaging also reviewed. All CT scans at [facility] use at least one of these dose optimization techniques: automated exposure control; mA and/or kV adjustment per patient size (includes targeted exams where dose is matched to clinical indication); or iterative reconstruction. CONTRAST: Omnipaque 350; 100 mL IV. DLP: 362.58 mGy.cm COMPARISON: 08/14/2024 Good opacification pulmonary arteries. No central emboli. Focal nonocclusive pulmonary embolism RIGHT lower lobe subsegmental branch. No additional pulmonary embolism. Moderate atherosclerosis aorta. Enlarged heart. No pericardial or pleural effusions. Soft tissue nodule LEFT upper lobe is reidentified measuring 2.0 x 1.0 cm. Opacification has been present on several prior studies without significant increase in size. Nodule is undergoing surveillance. Mild interstitial thickening and pulmonary edema. Dependent changes at the lung bases. No RIGHT heart strain. Bilateral mediastinal and hilar lymphadenopathy. Largest hilar lymph nodes measure 1.5 cm. Smaller paratracheal lymph nodes. Bilateral adrenal masses. RIGHT adrenal mass 3.3 x 1.8 cm. LEFT adrenal mass 3.[address]/CT angio chest PE protcl [id number] IMPRESSION: 1. Nonocclusive RIGHT lower lobe subsegmental pulmonary emboli. 2. No central emboli. 3. Bilateral hilar lymphadenopathy. Largest lymph nodes measure 1.5 cm. Lymph nodes have increased in size since 08/14/2024 and may represent metastatic diseas e. 4. LEFT upper lobe pulmonary nodule measuring 2.0 x 1.0 cm. Positive on recent PET/CT of 08/10/2024. 5. Bilateral adrenal masses, negative on PET/CT.
--- NOTE | 2024-11-06 14:29 | USCV_ITS ---
Dennise Funes Age: 69 Gender: F : 1955 Exam Date: 11/06/2024 15:21 Ordering Phys: Garth Colin DO Technologist: [employer] Exam Location: [facility] Indication: swelling pain HISTORY: RIGHT Lower extremity swelling. RIGHT Lower extremity pain. PROCEDURES: Venous duplex imaging was performed in only the right lower extremity. The following venous structures were evaluated: common femoral vein, profunda vein, proximal portion of the greater saphenous vein, superficial femoral vein, and the popliteal vein. In addition, the posterior tibial and peroneal trunk were evaluated. FINDINGS: Normal 2-D Doppler and augmentation and compressibility throughout the lower extremity venous structures. Additional imaging through the proximal calf veins also reveals no thrombus. Limited evaluation of the greater saphenous vein is patent with no thrombus. CONCLUSIONS No DVT right lower extremity. Dr. Radha Sanchez DO (Electronically Signed) Final Date: 06 November 2024 15:48 S
--- NOTE | 2024-11-06 14:32 | ED_ITS ---
HPI - Extremity Problem 2 General: Chief complaint: Extremity Problem,Nontraumatic Stated complaint: right leg tumor Time Seen by Provider: 11/06/24 14:20 History of Present Illness: 69-year-old female presents emergency ro om with complaint of leg pain and swelling and increasing shortness of breath. 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 According to oncology notes she is now basically on a palliative care regimen she is narcotics for pain and is getting acute treatment through that which she just started according to last note they are going to follow-up with her next week sometime to see how she was doing on her she states her pain is worsening to the point where she has a hard time walking and are mostly in her right leg sometimes in the right calf. Today it is worse in the right calf. She is also noticed increasing shortness of breath she had oxygen that she states she only wear at night now she is wearing continuously at 2 L/min because her oxygen sats are was in the upper 80s. She denies chest pain at this time. Associated symptoms: Deny chest pain, fever(s) or rash Related Data Home Medications ?Medication ?Instructions ?Recorded ?Confirmed nitroglycerin 0.4 mg sublingual 0.4 mg sublingual Q5M PRN Chest 04/30/22 11/01/24 tablet (Nitrostat) Pain cyanocobalamin (vitamin B-12) 500 500 mcg PO DAILY 11/01/24 mcg tablet (Vitamin B-12) pantoprazole 40 mg tablet,delayed mg PO 11/01/2411/01 release Previous Rx's ?Medication ?Instructions ?Recorded Compression Supporting Hose #1 ea 05/30/23 ondansetron 4 mg disintegrating 4 mg PO Q6H PRN nausea and 09/21/23 tablet vomiting #14 tabs albuterol sulfate 2.5 mg/3 mL 2.5 mg (3 mL) inhalation QID PRN 01/30/24 (0.083 %) solution for nebulization shortness of breat h or wheezing #90 mL lisinopril 20 mg tablet 20 mg PO DAILY #30 tabs 02/13 0 sennosides 8.6 mg-docusate sodium 1 tab-cap PO DAILY # 30 tabs 02/23/24 50 mg tablet (Senna-Time S) albuterol sulfate 90 mcg/actuation See Rx Instructions .Route 07/16/24 aerosol inhaler .COMPLEX #8.5 grams duloxetine 30 mg capsule,delayed 30 mg PO DAILY #90 ca ps 07/23/24 release metoprolol tartrate 25 mg tablet See Rx Instructions . Route 07/23/24 .COMPLEX #180 tabs tamsulosin 0.4 mg capsule 0.4 mg PO BID #60 caps 07/23 metolazone 5 mg tablet 5 mg PO DAILY 20 days #20 ta bs 08/07/24 ferrous sulfate 325 mg (65 mg 325 mg PO DAILY #30 tabs 08/16/24 iron) tablet escitalopram oxalate 20 mg tablet 20 mg PO DAILY #90 t abs 08/20/24 mupirocin calcium 2 % topical cream 1 applic topical B ID 10 days #30 08/29/24 grams gabapentin 600 mg tablet 600 mg PO BID #90 tabs 09/14 methocarbamol 500 mg tablet 1,000 mg (2 x 500 mg) PO Q 8H PRN 09/14/24 Spasms #120 tabs potassium chloride 20 mEq See Rx Instructions PO DAILY #90 09/18/24 tablet,extended release tabs ivosidenib 250 mg tablet (Tibsovo) See Rx Instructions .Route 10/12/24 .COMPLEX #60 tabs morphine 60 mg tablet,extended 60 mg PO BID pain 30 da ys #60 tabs 10/12/24 release naloxone 4 mg/actuation nasal 4 mg intranasal Q2M PRN opioid 10/12/24 spray (Narcan) overdose #2 ea oxycodone 20 mg tablet 20 mg PO Q8H PRN pain 30 day s #90 10/12/24 tabs bumetanide 2 mg tablet 2 mg PO BID #120 tabs acetaminophen 300 mg-codeine 30 mg 1 tab PO Q4H PRN br eakthrough pain 10/18/24 tablet #180 tabs lubiprostone 24 mcg capsule See Rx Instructions .Route 10/18/24 .COMPLEX #60 caps morphine 100 mg tablet,extended 100 mg PO BID pain 30 days #60 tabs 11/01/24 release prochlorperazine maleate 10 mg 10 mg PO Q4H PRN mild n ausea #30 11/01/24 tablet (Compazine) tabs apixaban 5 mg (74 tabs) tablets in See Rx Instructions PO .COMPLEX 11/06/24 a dose pack (Eliquis DVT-PE Treat #74 ea 30D Start) Allergies Allergy/AdvReac Type Severity Reaction Status Date / Time phenytoin (From Dilantin) Allergy Mild Rash Verified 11/01/24 13:09 Review of Systems 2 Const: Denies: fever(s) or chills Card: Reports: edema and swelling of feet/ankles; Denies: chest pain Resp: Denies: dyspnea GI: Denies: abdominal pain : Denies: dysuria, urinary frequency or urinary urgency Musc: Reports: extremity pain and extremity swelling; Denies: neck pain or back pain Skin/Breast: Denies: rash PFSH ED 2 PFSH: Medical History 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 Constipation Hypotension Metabolic acidosis Opiate or related narcotic overdose Acute encephalopathy GI bleeding Vomiting REINA (acute kidney injury) Pneumonia Right inguinal hernia Abnormal stress test Chronic indwelling Stewart catheter Elevated LFTs Elevated troponin Fall Weakness Encephalopathy Urinary tract infection COVID-19 Viral upper respiratory tract infection with cough Lower extremity edema REINA (acute kidney injury) Oxygen dependent COPD (chronic obstructive pulmonary disease) Depression Heart failure with preserved ejection fraction YOLY on CPAP Anxiety and depression CAD (coronary artery disease) Complete rotator cuff tear of left shoulder Primary osteoarthritis, left shoulder Chronic wound infection of abdomen Weakness of left shoulder Cancer related pain Nausea and vomiting Pneumonia Essential hypertension Degenerative arthritis Chronic pain of right knee Chronic narcotic use History of nonmelanoma skin cancer Metabolic syndrome Sleep apnea GERD with apnea Conn syndrome GERD (gastroesophageal reflux disease) Hypertension Surgical History Port-A-Cath in place History of surgery on lower extremity (02/14/20) 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 Bean Family History Mother Family history of premature coronary artery disease Hypertension Brother Cancer Hypertension Sister Cancer Father Family history of premature coronary artery disease Hypertension Denies family history of Diabetes CAD (coronary artery disease) Clotting disorder Dementia Hyperlipidemia Psychiatric illness Chronic kidney disease (CKD) Suicide Anesthesia complication Bleeding disorder Lung disease Stroke Social History Smoking and tobacco/nicotine status: former use of tobacco/nicotine Quit status (tobacco/nicotine): has quit using Year quit tobacco: 2016 Former quit date comment: 2ppd x 36 years Second hand smoke exposure: No Alcohol intake: never Substance/Drug Use: never Adopted: No Caregiver/support person: Yes Lives independently: Yes Marital status: Single Current occupational status: employed 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 Physical Exam 2 Const: COMMON NORMALS: no acute distress GENERAL APPEARANCE: cooperative and comfortable ORIENTATION/CONSCIOUSNESS: Yes awake, Yes oriented to person, Yes oriented to place and Yes oriented to time HENMT: COMMON NORMALS: normocephalic, atraumatic and hearing grossly normal bilaterally HEAD & SCALP: normocephalic and atraumatic Resp: COMMON NORMALS: normal respiratory effort, No retractions, No use of accessory muscles and clear to auscultation bilaterally AUSCULTATION: clear to auscultation bilaterally Cardio: COMMON NORMALS: regular rate, regular rhythm and No murmurs present (Cardio) RATE: regular rate RHYTHM: regular rhythm GI: COMMON NORMALS: Soft to palpation and No hepatosplenomegaly present A USCULTATION: Yes normoactive bowel sounds PALPATION: Yes Soft to palpation, No Tenderness to palpation present (GI), No Guarding due to palpation present (GI) and Yes No hepatosplenomegaly present Extremity: OTHER: Firm palpable tissue in the right medial upper thigh there is significant scarring exquisitely tender to the touch no redness no induration. Edema of the lower extremity on the right Neuro: SENSORIUM/ORIENTATION: Yes oriented to person, Yes oriented to place and Yes oriented to time Skin: COMMON NORMALS: no rashes or lesions noted GENERAL SKIN EXAM: no rashes or lesions noted Course 2 Vital Signs: Vital signs: Vital Signs Temperature 98.7 F 11/06/24 14:29 Pulse Rate 84 11/06/24 16:25 Respiratory Rate 16 11/06/24 15:22 Blood Pressure 123/63 11/06/24 16:25 Pulse Oximetry 94 11/06/24 16:25 Oxygen Delivery Me thod Room Air 11/06/24 15:22 Oxygen Flow Rate 2 11/06/24 14:29 MDM - Extremity (Nontraumatic) Medical Decision Making PE noted in the lung on the CTA. No DVT in the right leg. Patient given Lovenox here start Eliquis. Discharge patient home. Continue medications for pain. Follow-up with oncology send she is able Medical Records I reviewed the patient's medical records. Lab Data I reviewed the patient's lab results. 11/06/24 14:44 11/06/24 14:44 Radiology Impressions Chest CTA 11/06/24 14:29 IMPRESSION: 1. Nonocclusive RIGHT lower lobe subsegmental pulmonary emboli. 2. No central emboli. 3. Bilateral hilar lymphadenopathy. Largest lymph nodes measure 1.5 cm. Lymph nodes have increased in size since 08/14/2024 and may represent metastatic disease. 4. LEFT upper lobe pulmonary nodule measuring 2.0 x 1.0 cm. Positive on recent PET/CT of 08/10/2024. 5. Bilateral adrenal masses, negative on PET/CT. Femur X-Ray 11/06/24 14:33 IMPRESSION: 1. No fracture identified. Stable appearing right total hip replacement. Tibia/Fibula X-Ray 11/06/24 14:33 IMPRESSION: 1. No fracture noted. Chondrocalcinosis at the knee. Laboratory Results WBC 4.87 10^3/uL (3.29-11.43) 11/06/24 14:44 RBC 3.66 10^6/uL (3.85-5.65) L 11/06/24 14:44 Hgb 10.30 g/dL (11.27-16.99) L 11/06/24 14:44 Hct 33.2 % (36-47) L 11/06/24 14:44 MCV 90.7 fl (85-98) 11/06/24 14:44 MCH 28.1 pg (27-33) 11/06/24 14:44 MCHC 31.0 g/dL (30-55) 11/06/24 14:44 RDW 16.2 % (12.1-15.1) H 11/06/24 14:44 Plt Count 247 10^3/cmm (157-399) 11/06/24 14:44 MPV 9.3 fL (7.4-10.4) 11/06/24 14:44 Neut % (Auto) 66.6 % 11/06/24 14:44 Lymph % (Auto) 22.4 % 11/06/24 14:44 Traill % (Auto) 8.6 % 11/06/24 14:44 Eos % (Auto) 1.4 % 11/06/24 14:44 Baso % (Auto) 0.6 % 11/06/24 14:44 Neut # (Auto) 3.24 10^3/uL (1.8-7.7) 11/06/24 14:44 Lymph # (Auto) 1.1 10^3/uL (0.8-4.8) 11/06/24 14:44 Traill # (Auto) 0.4 10^3/uL (0.2-0.9) 11/06/24 14:44 Eos # (Auto) 0.1 10^3/uL (0.0-0.8) 11/06/24 14:44 Baso # (Auto) 0.0 10^3/uL (0.0-0.1) 11/06/24 14:44 Nucleated RBC % (auto) 0 % 11/06/24 14:44 Nucleated RBCs # 0.0 /100WBC 11/06/24 14:44 Sodium 138 mmol/L (136-145) 11/06/24 14:44 Potassium 3.0 mmol/L (3.5-5.1) L 11/06/24 14:44 Chloride 93 mmol/L (98-107) L 11/06/24 14:44 Carbon Dioxide 33 mmol/L (22-29) H 11/06/24 14:44 Anion Gap 15.0 (5-19) 11/06/24 14:44 BUN 9 mg/dL (8-23) 11/06/24 14:44 Creatinine 0.7 mg/dL (0.5-0.9) 11/06/24 14:44 GFR Calculation 83.2 mL/min (90-130) L 11/06/24 14:44 Glucose 109 mg/dL (65-115) 11/06/24 14:44 Calculated Osmolality 285 mOsm/kg (285-295) 11/06/24 14:44 Calcium 8.3 mg/dL (8.5-10.5) L 11/06/24 14:44 Total Bilirubin 0.5 mg/dL (0.15-1.2) 11/06/24 14:44 AST 12 U/L (0-32) 11/06/24 14:44 ALT 7 U/L (0-33) 11/06/24 14:44 Alkaline Phosphatase 154 U/L (35-105) H 11/06/24 14:44 Total Protein 6.7 g/dL (6.6-8.7) 11/06/24 14:44 Albumin 3.4 g/dL (3.5-5.2) L 11/06/24 14:44 Globulin 3.3 g/dL (1.3-4.6) 11/06/24 14:44 All radiology interpretation(s) finalized by discharge Discharge Plan Discharge Patient Disposition: Home Clinical Impression: Pulmonary embolism, Sarcoma of right lower extremity Condition: Stable Prescriptions: New EliquProduce Run DVT-PE Treat 30D Start 5 mg (74 tabs) tablets,dose pack See Rx Instructions .ROUTE .COMPLEX Qty: 74 0RF Rx Instructions: orally per package directions No Action albuterol sulfate 2.5 mg /3 mL (0.083 %) solution for nebulization 2.5 mg inhalation QID PRN (Reason: shortness of breath or wheezing) Qty: 90 2RF ferrous sulfate 325 mg (65 mg iron) tablet 325 mg PO DAILY Qty: 30 3RF metolazone 5 mg tablet 5 mg PO DAILY 20 Days Qty: 20 3RF Rx Instructions: take x 5 days, then take as needed when weigh gain is >5Ibs morphine 60 mg tablet extended release 60 mg PO BID 30 Days Qty: 60 0RF oxycodone 20 mg tablet 20 mg PO Q8H PRN (Reason: pain) 30 Days Qty: 90 0RF naloxone [Narcan] 4 mg/actuation spray,non-aerosol 4 mg intranasal Q2M PRN (Reason: opioid overdose) Qty: 2 0RF Rx Instructions: spray 1 dose into ONE nostril; alternate nostrils w each dose until help arrives pantoprazole 40 mg tablet,delayed release (DR/EC) PO morphine 100 mg tablet extended release 100 mg PO BID 30 Days Qty: 60 0RF (DME) Compression Supporting Hose See Rx Instructions .Route .MEDSUPPLY Qty: 1 0RF Rx Instructions: As directed albuterol sulfate 90 mcg/actuation HFA aerosol inhaler See Rx Instructions .ROUTE .COMPLEX Qty: 8.5 1RF Dose Instruction: INHALE 1 PUFF FOUR TIMES DAILY NEEDED FOR SHORTNESS OF BREATH or wheezing Rx Instructions: INHALE 1 PUFF FOUR TIMES DAILY NEEDED FOR SHORTNESS OF BREATH or wheezing duloxetine 30 mg capsule,delayed release(DR/EC) 30 mg PO DAILY Qty: 90 1RF metoprolol tartrate 25 mg tablet See Rx Instructions .ROUTE .COMPLEX Qty: 180 3RF Dose Instruction: TAKE 1 TABLET BY MOUTH TWICE DAILY Rx Instructions: TAKE 1 TABLET BY MOUTH TWICE DAILY tamsulosin 0.4 mg capsule 0.4 mg PO BID Qty: 60 3RF escitalopram oxalate 20 mg tablet 20 mg PO DAILY Qty: 90 1RF mupirocin calcium 2 % cream 1 applic topical BID 10 Days Qty: 30 0RF gabapentin 600 mg tablet 600 mg PO BID Qty: 90 1RF methocarbamol 500 mg tablet 1,000 mg PO Q8H PRN (Reason: Spasms) Qty: 120 1RF potassium chloride 20 mEq tablet extended release See Rx Instructions PO DAILY Qty: 90 0RF Rx Instructions: 2 tablets BID x 3 days, then ONE tablet daily thereafter orally daily; Tibsovo 250 mg tablet See Rx Instructions .ROUTE .COMPLEX Qty: 60 1RF Dose Instruction: TAKE 2 TABLETS BY MOUTH EVERY DAY Rx Instructions: TAKE 2 TABLETS BY MOUTH EVERY DAY bumetanide 2 mg tablet 2 mg PO BID Qty: 120 1RF lubiprostone 24 mcg capsule See Rx Instructions .ROUTE .COMPLEX Qty: 60 0RF Dose Instruction: take 1 capsule BY MOUTH TWICE DAILY Rx Instructions: take 1 capsule BY MOUTH TWICE DAILY acetaminophen-codeine 300-30 mg tablet 1 tab PO Q4H MDD 3000mg tylenol PRN (Reason: breakthrough pain) Qty: 180 0RF prochlorperazine maleate [Compazine] 10 mg tablet 10 mg PO Q4H PRN (Reason: mild nausea) Qty: 30 3RF nitroglycerin [Nitrostat] 0.4 mg Tablet, Sublingual 0.4 mg SUBLINGUAL Q5M PRN (Reason: Chest Pain) Rx Instructions: do not exceed 3 doses per episode cyanocobalamin (vitamin B-12) [Vitamin B-12] 500 mcg Tablet 500 mcg PO DAILY ondansetron 4 mg tablet,disintegrating 4 mg PO Q6H PRN (Reason: nausea and vomiting) Qty: 14 0RF lisinopril 20 mg Tablet 20 mg PO DAILY Qty: 30 0RF sennosides-docusate sodium [Senna-Time S] 8.6-50 mg tablet 1 tab-cap PO DAILY Qty: 30 0RF Discharge Orders: Discharge ED (Routine); Ordered 11/06/24 Ordered By: Garth Colin Referrals: Cyril Ramsey MD [Primary Care Provider, [facility]] Patient Instructions: Opioid Safety, Pain Management, Patient Portal & Reymundo Instructions Activity Restrictions/Additional Instructions: [facility]. It is very important that you follow up as instructed or that you return to the Emergency Department should you have concerns or if your condition changes or worsens in any way. You are seen emergency room with increased pain in the right leg. This is likely from the sarcoma in your leg. There is no DVT in your leg. You did have a clot in your lung. X-rays of your leg did not show any acute fractures or deterioration of the bone. We were given a shot of Lovenox in the emergency room and started on oral Eliquis. Continue to use your narcotics for pain. 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
--- NOTE | 2024-11-06 14:33 | XR_ITS ---
WS: [id number] Exam: XR tibia fibula RT 2V [id number] Date/Time of Exam: 11/06/2024 2:39 PM Reason For Exam: pain No acute fracture. Meniscal calcification noted at the knee. Normal soft tissues. XR/XR tibia fibula RT 2V [id number] IMPRESSION: 1. No fracture noted. Chondrocalcinosis at the knee.
--- NOTE | 2024-11-06 14:33 | XR_ITS ---
WS: [id number] Exam: XR femur RT min 2V* [id number] Date/Time of Exam: 11/06/2024 2:38 PM Reason For Exam: pain No acute fracture. Stable appearing RIGHT total hip replacement. Numerous surgical clips identified in the region of the thigh and RIGHT pelvis. XR/XR femur RT min 2V* [id number] IMPRESSION: 1. No fracture identified. Stable appearing right total hip replacement.
[2024-11-06] MEDS: iohexol 350 mg/mL 500 mL Btl (per mL) IV (15:05)
[2024-11-06 15:11] LABS: Basophils % 0.6 %; Eosinophils # 0.1 10^3/uL (0.0-0.8); Eosinophils % 1.4 %; Hematocrit 33.2 % (36-47); Lymphocytes # 1.1 10^3/uL (0.8-4.8); Lymphocytes % 22.4 %; Mean Corpuscular Hemoglobin 28.1 pg (27-33); Mean Corpuscular Volume 90.7 fl (85-98); Mean Platelet Volume 9.3 fL (7.4-10.4); Monocytes # 0.4 10^3/uL (0.2-0.9); Monocytes % 8.6 %; Neutrophils # 3.24 10^3/uL (1.8-7.7); Neutrophils % 66.6 %; Nucleated Red Blood Cells % 0 %; Platelet Count 247 10^3/cmm (157-399); Red Blood Count 3.66 10^6/uL (3.85-5.65); Red Cell Distribution Width 16.2 % (12.1-15.1); White Blood Count 4.87 10^3/uL (3.29-11.43)
[2024-11-06 15:22] VITALS: PULSE 81; RESP 16; O2SAT 96
[2024-11-06 15:29] LABS: Alanine Aminotransferase 7 U/L (0-33); Albumin Level 3.4 g/dL (3.5-5.2); Alkaline Phosphatase 154 U/L (35-105); Aspartate Amino Transferase 12 U/L (0-32); Blood Urea Nitrogen 9 mg/dL (8-23); Calcium 8.3 mg/dL (8.5-10.5); Carbon Dioxide 33 mmol/L (22-29); Chloride 93 mmol/L (98-107); Globulin 3.3 g/dL (1.3-4.6); Glomerular Filtration Rate 83.2 mL/min (90-130); Glucose 109 mg/dL (65-115); Osmolality Calculated 285 mOsm/kg (285-295); Sodium 138 mmol/L (136-145); Total Bilirubin 0.5 mg/dL (0.15-1.2); Total Protein 6.7 g/dL (6.6-8.7)
[2024-11-06] MEDS: fentaNYL 50 mcg/mL INJ 2mL IVP (16:19)
[2024-11-06] MEDS: enoxaparin 100 mg/mL Syringe 90 MG SUBCUT (16:20)
[2024-11-06 16:25] VITALS: BP 123/63; PULSE 84; O2SAT 94
== END 2024-11-06 16:27 | disposition home or self-care (01) ==
PROVIDERS: Emergency Provider Family Medicine; PCP Family Medicine
DX: I26.99 Other pulmonary embolism without acute cor pulmonale (principal); C49.21 Malignant neoplasm of connective and soft tissue of right lower limb, including hip; Z87.891 Personal history of nicotine dependence; I25.10 Atherosclerotic heart disease of native coronary artery without angina pectoris; J44.9 Chronic obstructive pulmonary disease, unspecified; I11.0 Hypertensive heart disease with heart failure; I50.30 Unspecified diastolic (congestive) heart failure
CPT/HCPCS: 36415; 71275; 73552; 73590; 80053; 85025; 93971; 96372; 96374; 99285; J1650; J3010

== ENCOUNTER 2024-11-07 15:00 | Oncology outpatient (recurring) (ONCR) | payer OTHER, SELFPAY ==
[2024-11-01 13:08] LABS: Basophils % 0.5 %; Eosinophils % 0.3 %; Hematocrit 33.3 % (36-47); Lymphocytes # 1.5 10^3/uL (0.8-4.8); Lymphocytes % 24.1 %; Mean Corpuscular HGB Conc 30.3 g/dL (30-55); Mean Corpuscular Hemoglobin 26.9 pg (27-33); Mean Corpuscular Volume 88.8 fl (85-98); Mean Platelet Volume 9.2 fL (7.4-10.4); Monocytes # 0.5 10^3/uL (0.2-0.9); Monocytes % 7.6 %; Neutrophils # 4.08 10^3/uL (1.8-7.7); Nucleated Red Blood Cells % 0 %; Platelet Count 227 10^3/cmm (157-399); Red Blood Count 3.75 10^6/uL (3.85-5.65); Red Cell Distribution Width 16.8 % (12.1-15.1); Reticulocyte % 1.3 % (0.5-2.0); White Blood Count 6.09 10^3/uL (3.29-11.43)
[2024-11-01 13:27] LABS: Alanine Aminotransferase 6 U/L (0-33); Albumin Level 3.5 g/dL (3.5-5.2); Alkaline Phosphatase 135 U/L (35-105); Anion Gap 16.5 (5-19); Aspartate Amino Transferase 11 U/L (0-32); Blood Urea Nitrogen 17 mg/dL (8-23); Calcium 7.6 mg/dL (8.5-10.5); Carbon Dioxide 30 mmol/L (22-29); Chloride 104 mmol/L (98-107); Creatinine Clr Calc Pharmacy 72.7315; Ferritin 35 ng/mL (15-150); Globulin 2.9 g/dL (1.3-4.6); Glomerular Filtration Rate 83.2 mL/min (90-130); Glucose 101 mg/dL (65-115); Iron 28 ug/dL (37-145); Lactate Dehydrogenase 198 U/L (135-214); Osmolality Calculated 306 mOsm/kg (285-295); Percent Saturation 10.2 % (20-50); Potassium 3.5 mmol/L (3.5-5.1); Sodium 147 mmol/L (136-145); Total Bilirubin 0.2 mg/dL (0.15-1.2); Total Iron Binding Capacity 272 mcg/dl; Total Protein 6.4 g/dL (6.6-8.7); Unsaturated Iron Binding 244 ug/dL (112-347)
[2024-11-01 13:42] LABS: Vitamin B12 1259 pg/mL (232-1245)
[2024-11-01 13:50] LABS: Folate Level 4.3 ng/mL (4.8-37.3)
== END 2024-11-12 23:59 | disposition home or self-care (01) ==
PROVIDERS: PCP Family Medicine; Visit Provider Internal Medicine
DX: Z53.9 Procedure and treatment not carried out, unspecified reason (principal)
CPT/HCPCS: 36591; 80053; 82607; 82728; 82746; 83010; 83540; 83550; 83615; 85025; 85045; 99213

== ENCOUNTER 2024-11-15 08:19 | Oncology outpatient (recurring) (ONCR) | payer OTHER, SELFPAY ==
[2024-11-15 08:36] LABS: Hematocrit 34.1 % (36-47); Hemoglobin 10.40 g/dL (11.27-16.99); Mean Corpuscular HGB Conc 30.5 g/dL (30-55); Mean Corpuscular Hemoglobin 27.7 pg (27-33); Mean Corpuscular Volume 90.7 fl (85-98); Nucleated Red Blood Cells % 0 %; Platelet Count 267 10^3/cmm (157-399); Red Blood Count 3.76 10^6/uL (3.85-5.65); White Blood Count 8.02 10^3/uL (3.29-11.43)
[2024-11-15 09:04] LABS: Alanine Aminotransferase 7 U/L (0-33); Albumin Level 3.6 g/dL (3.5-5.2); Alkaline Phosphatase 154 U/L (35-105); Anion Gap 15.7 (5-19); Aspartate Amino Transferase 12 U/L (0-32); Blood Urea Nitrogen 14 mg/dL (8-23); Calcium 8.7 mg/dL (8.5-10.5); Carbon Dioxide 30 mmol/L (22-29); Chloride 96 mmol/L (98-107); Creatinine Clr Calc Pharmacy 72.3461; Globulin 3.3 g/dL (1.3-4.6); Glucose 158 mg/dL (65-115); Osmolality Calculated 290 mOsm/kg (285-295); Potassium 3.7 mmol/L (3.5-5.1); Sodium 138 mmol/L (136-145); Thyroid Stimulating Hormone 4.93 uIU/mL (0.27-4.20); Total Protein 6.9 g/dL (6.6-8.7)
[2024-11-15] MEDS: pembrolizumab 200 MG in sodium chloride 0.9% 250 ML 516 MG IV (10:49)
[2024-11-15 11:50] VITALS: BP 155/68; PULSE 83; RESP 17; TEMP 35.8; O2SAT 92
[2024-11-15 14:03] LABS: Free T4 Free Thyroxine 1.19 ng/dL (0.82-1.77)
== END 2024-11-19 10:00 | disposition home or self-care (01) ==
PROVIDERS: Nurse Practitioner; PCP Family Medicine; Visit Provider Internal Medicine
DX: Z51.12 Encounter for antineoplastic immunotherapy (principal); C49.21 Malignant neoplasm of connective and soft tissue of right lower limb, including hip; D69.6 Thrombocytopenia, unspecified; I50.33 Acute on chronic diastolic (congestive) heart failure; R03.0 Elevated blood-pressure reading, without diagnosis of hypertension; Z87.891 Personal history of nicotine dependence; W19.XXXA Unspecified fall, initial encounter; Z79.899 Other long term (current) drug therapy
CPT/HCPCS: 80053; 84439; 84443; 84481; 85025; 96413; 99215; A4222; J7050; J9271

== ENCOUNTER 2024-12-13 11:30 | Oncology outpatient (recurring) (ONCR) | payer OTHER, SELFPAY ==
[2024-11-22 14:14] LABS: Hematocrit 32.4 % (36-47); Hemoglobin 9.80 g/dL (11.27-16.99); Mean Corpuscular HGB Conc 30.2 g/dL (30-55); Mean Corpuscular Hemoglobin 27.6 pg (27-33); Mean Corpuscular Volume 91.3 fl (85-98); Nucleated Red Blood Cells % 0 %; Platelet Count 238 10^3/cmm (157-399); Red Blood Count 3.55 10^6/uL (3.85-5.65); White Blood Count 5.22 10^3/uL (3.29-11.43)
[2024-11-22 14:39] LABS: Alanine Aminotransferase 6 U/L (0-33); Albumin Level 3.5 g/dL (3.5-5.2); Alkaline Phosphatase 147 U/L (35-105); Anion Gap 12.7 (5-19); Aspartate Amino Transferase 10 U/L (0-32); Blood Urea Nitrogen 9 mg/dL (8-23); Calcium 8.4 mg/dL (8.5-10.5); Carbon Dioxide 32 mmol/L (22-29); Chloride 95 mmol/L (98-107); Creatinine Clr Calc Pharmacy 72.5386; Globulin 3.0 g/dL (1.3-4.6); Glucose 103 mg/dL (65-115); Osmolality Calculated 281 mOsm/kg (285-295); Potassium 3.7 mmol/L (3.5-5.1); Sodium 136 mmol/L (136-145); Thyroid Stimulating Hormone 2.01 uIU/mL (0.27-4.20); Total Protein 6.5 g/dL (6.6-8.7)
[2024-11-22 15:29] VITALS: RESP 17; O2SAT 97
[2024-11-22] MEDS: morphine 4 mg/mL SDV 1 mL 10 MG IVP ×2 (15:29→15:53)
[2024-11-22 15:53] VITALS: RESP 17; O2SAT 98
[2024-12-06 08:41] LABS: Hematocrit 34.2 % (36-47); Hemoglobin 10.80 g/dL (11.27-16.99); Mean Corpuscular HGB Conc 31.6 g/dL (30-55); Mean Corpuscular Hemoglobin 28.1 pg (27-33); Mean Corpuscular Volume 89.1 fl (85-98); Nucleated Red Blood Cells % 0 %; Platelet Count 295 10^3/cmm (157-399); Red Blood Count 3.84 10^6/uL (3.85-5.65); White Blood Count 6.93 10^3/uL (3.29-11.43)
[2024-12-06 09:12] LABS: Alanine Aminotransferase 6 U/L (0-33); Albumin Level 3.9 g/dL (3.5-5.2); Alkaline Phosphatase 152 U/L (35-105); Anion Gap 19.2 (5-19); Aspartate Amino Transferase 10 U/L (0-32); Blood Urea Nitrogen 30 mg/dL (8-23); Calcium 8.9 mg/dL (8.5-10.5); Carbon Dioxide 30 mmol/L (22-29); Chloride 91 mmol/L (98-107); Creatinine Clr Calc Pharmacy 39.6882; Ferritin 124 ng/mL (15-150); Globulin 3.1 g/dL (1.3-4.6); Glucose 140 mg/dL (65-115); Iron 38 ug/dL (37-145); Osmolality Calculated 292 mOsm/kg (285-295); Potassium 3.2 mmol/L (3.5-5.1); Sodium 137 mmol/L (136-145); Thyroid Stimulating Hormone 0.70 uIU/mL (0.27-4.20); Total Iron Binding Capacity 282 mcg/dl; Total Protein 7.0 g/dL (6.6-8.7); Unsaturated Iron Binding 244 ug/dL (112-347)
[2024-12-06 15:25] VITALS: BP 189/68; PULSE 89; RESP 16; TEMP 36.6; O2SAT 96
[2024-12-07 10:10] VITALS: BP 115/62; PULSE 73; O2SAT 94
[2024-12-10 11:35] VITALS: BP 134/72; PULSE 88; RESP 17; TEMP 36.6; O2SAT 98
[2024-12-13 12:28] LABS: Hematocrit 33.5 % (36-47); Hemoglobin 10.60 g/dL (11.27-16.99); Mean Corpuscular HGB Conc 31.6 g/dL (30-55); Mean Corpuscular Hemoglobin 28.6 pg (27-33); Mean Corpuscular Volume 90.3 fl (85-98); Nucleated Red Blood Cells % 0 %; Platelet Count 251 10^3/cmm (157-399); Red Blood Count 3.71 10^6/uL (3.85-5.65); White Blood Count 5.75 10^3/uL (3.29-11.43)
[2024-12-13 12:59] LABS: Alanine Aminotransferase 9 U/L (0-33); Albumin Level 3.4 g/dL (3.5-5.2); Alkaline Phosphatase 143 U/L (35-105); Anion Gap 13.4 (5-19); Aspartate Amino Transferase 14 U/L (0-32); Blood Urea Nitrogen 6 mg/dL (8-23); Calcium 7.8 mg/dL (8.5-10.5); Carbon Dioxide 30 mmol/L (22-29); Chloride 94 mmol/L (98-107); Creatinine Clr Calc Pharmacy 70.4183; Ferritin 79 ng/mL (15-150); Globulin 3.0 g/dL (1.3-4.6); Glucose 122 mg/dL (65-115); Iron 61 ug/dL (37-145); Osmolality Calculated 277 mOsm/kg (285-295); Potassium 3.4 mmol/L (3.5-5.1); Sodium 134 mmol/L (136-145); Total Iron Binding Capacity 238 mcg/dl; Total Protein 6.4 g/dL (6.6-8.7); Unsaturated Iron Binding 177 ug/dL (112-347)
[2024-12-13 13:08] LABS: Thyroid Stimulating Hormone 3.31 uIU/mL (0.27-4.20); Vitamin B12 1503 pg/mL (232-1245)
[2024-12-13] MEDS: pembrolizumab 200 MG in sodium chloride 0.9% 250 ML 516 MG IV (14:08)
[2024-12-13 14:50] VITALS: BP 136/76; PULSE 82; RESP 16; O2SAT 96
== END 2024-12-13 23:59 | disposition home or self-care (01) ==
PROVIDERS: Nurse Practitioner Family; PCP Family Medicine; Visit Provider Nurse Practitioner
DX: Z53.9 Procedure and treatment not carried out, unspecified reason; Z51.12 Encounter for antineoplastic immunotherapy; C49.21 Malignant neoplasm of connective and soft tissue of right lower limb, including hip; D50.9 Iron deficiency anemia, unspecified; Z95.828 Presence of other vascular implants and grafts; Z87.891 Personal history of nicotine dependence; Z79.899 Other long term (current) drug therapy; G89.3 Neoplasm related pain (acute) (chronic); E03.9 Hypothyroidism, unspecified
CPT/HCPCS: 36591; 80053; 82607; 82728; 82746; 83010; 83540; 83550; 83615; 84443; 85025; 85045; 96360; 96374; 96413; 99213; 99214; 99215; A4222; J2270; J7030; J7050; J9271

== ENCOUNTER 2025-01-08 16:51 | Emergency (ER) | payer OTHER, SELFPAY ==
--- NOTE | 2025-01-08 16:53 | XRR_ITS ---
PROCEDURE INFORMATION: Exam: XR Right Hip Exam date and time: 01/08/2025 4:56 PM Age: 69 years old Clinical indication: Hip pain; Right hip; Prior surgery; Surgery date: 6+ months; Surgery type: Leroy hip TECHNIQUE: Imaging protocol: Radiologic exam of the right hip. Views: 1 view hip with pelvis when performed. COMPARISON: CT abdomen pelvis w con* [id number] 02/27/2024 5:50 PM FINDINGS: Bones/joints: There are normal-appearing bilateral total hip prostheses. [employer] bone is unremarkable. Soft tissues: Multiple soft tissue clips overlie the proximal right thigh and groin. XR/XR hip RT 2-3V wo/w pel* [id number] IMPRESSION: No acute findings.
[2025-01-08 16:54] VITALS: PULSE 100; RESP 18; TEMP 36.8; O2SAT 95
--- NOTE | 2025-01-08 16:54 | W.ED.GENADLT ---
Documented by User: Garth Colin DO 01/09/25 06:43 HPI - General Adult General: Chief complaint: Extremity Injury, Lower Stated complaint: R hip pain Time Seen by Provider: 01/08/25 16:53 History of Present Illness: 69-year-old female presents emergency room complaining of right hip pain. No trauma involved she woke up felt severe right hip pain. 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 Surgery was done in [place]. She took 20 mg oxycodone prior to arrival for pain control is still having exquisite pain. Denies fever sweats chills. Patient has had a history of DVT and PE she is currently on Eliquis Associated symptoms: Deny chest pain, dyspnea or rash Related Data Home Medications ?Medication ?Instructions ?Recorded ?Confirmed nitroglycerin 0.4 mg sublingual 0.4 mg sublingual Q5M PRN Chest 04/30/22 01/03/25 tablet (Nitrostat) Pain cyanocobalamin (vitamin B-12) 500 500 mcg PO DAILY 07/10/22 01/03/25 mcg tablet (Vitamin B-12) pantoprazole 40 mg tablet,delayed mg PO 11/01/24 01/03/25 release Previous Rx's ?Medication ?Instructions ?Recorded Compression Supporting Hose #1 ea 05/30/23 ondansetron 4 mg disintegrating 4 mg PO Q6H PRN nausea and 09/21/23 tablet vomiting #14 tabs albuterol sulfate 2.5 mg/3 mL 2.5 mg (3 mL) inhalation QID PRN 01/30/24 (0.083 %) solution for nebulization shortness of breath or wheezing #90 mL lisinopril 20 mg tablet 20 mg PO DAILY #30 tabs 02/23/24 sennosides 8.6 mg-docusate sodium 1 tab-cap PO DAILY #30 tabs 02/23/24 50 mg tablet (Senna-Time S) albuterol sulfate 90 mcg/actuation See Rx Instructions .Route 07/16/24 aerosol inhaler .COMPLEX #8.5 grams duloxetine 30 mg capsule,delayed 30 mg PO DAILY #90 caps 07/23/24 release metoprolol tartrate 25 mg tablet See Rx Instructions .Route 07/23/24 .COMPLEX #180 tabs metolazone 5 mg tablet 5 mg PO DAILY 20 days #20 tabs 08/07/24 escitalopram oxalate 20 mg tablet 20 mg PO DAILY #90 tabs 08/20/24 mupirocin calcium 2 % topical cream 1 applic topical BID 10 days #30 08/29/24 grams potassium chloride 20 mEq See Rx Instructions PO DAILY #90 09/18/24 tablet,extended release tabs naloxone 4 mg/actuation nasal 4 mg intranasal Q2M PRN opioid 10/12/24 spray (Narcan) overdose #2 ea bumetanide 2 mg tablet 2 mg PO BID #120 tabs 10/15/24 prochlorperazine maleate 10 mg 10 mg PO Q4H PRN mild nausea #30 11/01/24 tablet (Compazine) tabs methocarbamol 500 mg tablet 1,000 mg (2 x 500 mg) PO Q8H PRN 11/12/24 Spasms #120 tabs tamsulosin 0.4 mg capsule 0.4 mg PO BID #60 caps 11/12/24 guaifenesin 1,200 mg tablet, 1,200 mg PO BID #60 tabs 11/22/24 extended release 12 hr (Mucinex) oxycodone 20 mg tablet 20 mg PO Q6H PRN pain 30 days #120 12/12/24 tabs gabapentin 600 mg tablet 600 mg PO BID #90 tabs 12/24/24 lubiprostone 24 mcg capsule See Rx Instructions .Route 12/25/24 .COMPLEX #60 caps acetaminophen 300 mg-codeine 30 mg 1 tab PO Q4H PRN breakthrough pain 12/26/24 tablet #180 tabs morphine 100 mg tablet,extended 100 mg PO BID pain 30 days #60 tabs 12/26/24 release apixaban 5 mg tablet (Eliquis) 5 mg PO BID #60 tabs 12/27/24 Allergies Allergy/AdvReac Type Severity Reaction Status Date / Time phenytoin (From Dilantin) Allergy Mild Rash Verified 12/27/24 08:27 sulfamethoxazole (From Allergy ALGY-Hives Verified 12/27/24 08:27 Bactrim) trimethoprim (From Bactrim) Allergy ALGY-Hives Verified 12/27/24 08:27 Review of Systems Const: Denies: fever(s) or chills Card: Denies: chest pain Resp: Denies: dyspnea GI: Denies: abdominal pain : Denies: dysuria, urinary frequency or urinary urgency Musc: Reports: joint pain; Denies: neck pain or back pain Skin/Breast: Denies: rash PFSH ED PFSH: Medical History 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 Constipation Hypotension Metabolic acidosis Opiate or related narcotic overdose Acute encephalopathy GI bleeding Vomiting REINA (acute kidney injury) Pneumonia Right inguinal hernia Abnormal stress test Chronic indwelling Stewart catheter Elevated LFTs Elevated troponin Fall Weakness Encephalopathy Urinary tract infection COVID-19 Viral upper respiratory tract infection with cough Lower extremity edema REINA (acute kidney injury) Oxygen dependent COPD (chronic obstructive pulmonary disease) Depression Heart failure with preserved ejection fraction YOLY on CPAP Anxiety and depression CAD (coronary artery disease) Complete rotator cuff tear of left shoulder Primary osteoarthritis, left shoulder Chronic wound infection of abdomen Weakness of left shoulder Cancer related pain Nausea and vomiting Pneumonia Essential hypertension Degenerative arthritis Chronic pain of right knee Chronic narcotic use History of nonmelanoma skin cancer Metabolic syndrome Sleep apnea GERD with apnea Conn syndrome GERD (gastroesophageal reflux disease) Hypertension Surgical History Port-A-Cath in place History of surgery on lower extremity (02/14/20) 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 Bean Family History Mother Family history of premature coronary artery disease Hypertension Brother Cancer Hypertension Sister Cancer Father Family history of premature coronary artery disease Hypertension Denies family history of Diabetes CAD (coronary artery disease) Clotting disorder Dementia Hyperlipidemia Psychiatric illness Chronic kidney disease (CKD) Suicide Anesthesia complication Bleeding disorder Lung disease Stroke Social History Smoking and tobacco/nicotine status: former use of tobacco/nicotine Quit status (tobacco/nicotine): has quit using Year quit tobacco: 2017 Former quit date comment: 2ppd x 36 years Second hand smoke exposure: No Alcohol intake: never Substance/Drug Use: never Adopted: No Caregiver/support person: Yes Lives independently: Yes Marital status: Single Current occupational status: employed 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 Physical Exam Const: GENERAL APPEARANCE: cooperative ORIENTATION/CONSCIOUSNESS: Yes awake, Yes oriented to person, Yes oriented to place and Yes oriented to time HENMT: COMMON NORMALS: normocephalic, atraumatic and hearing grossly normal bilaterally HEAD & SCALP: normocephalic and atraumatic Resp: COMMON NORMALS: normal respiratory effort, No retractions, No use of accessory muscles and clear to auscultation bilaterally AUSCULTATION: clear to auscultation bilaterally Cardio: COMMON NORMALS: regular rate, regular rhythm and No murmurs present (Cardio) RATE: regular rate RHYTHM: regular rhythm GI: COMMON NORMALS: Soft to palpation and No hepatosplenomegaly present AUSCULTATION: Yes normoactive bowel sounds PALPATION: Yes Soft to palpation, No Tenderness to palpation present (GI), No Guarding due to palpation present (GI) and Yes No hepatosplenomegaly present Extremity: OTHER: Soft tissue/flap in the right lateral hip and groin crease from previous revision of sarcoma. Is swollen and firm to the touch mildly indurated no erythema Neuro: SENSORIUM/ORIENTATION: Yes oriented to person, Yes oriented to place and Yes oriented to time Skin: COMMON NORMALS: no rashes or lesions noted GENERAL SKIN EXAM: no rashes or lesions noted Course Vital Signs: Vital signs: Vital Signs Temperature 98.2 F 01/08/25 16:54 Pulse Rate 95 01/08/25 22:13 Respiratory Rate 14 01/08/25 22:00 Blood Pressure 143/71 01/08/25 22:13 Pulse Oximetry 93 01/08/25 22:13 Oxygen Delivery Me thod Room Air 01/08/25 16:54 MDM - General Adult Medical Decision Making Care signed out to Dr. Piedra at change of shift. See final notes for diagnosis and disposition. Lab Data 01/08/25 17:22 01/08/25 17:22 Radiology Impressions Hip/Pelvis X-Ray 01/08/25 16:53 IMPRESSION: No acute findings. Hip CT 01/08/25 17:12 IMPRESSION: Very large soft tissue mass of the right thigh as detailed above. The mass has increased dramatically in size over the past 5 months Laboratory Results WBC 8.87 10^3/uL (3.29-11.43) 01/08/25 17:22 RBC 4.00 10^6/uL (3.85-5.65) 01/08/25 17:22 Hgb 11.30 g/dL (11.27-16.99) 01/08/25 17:22 Hct 37.1 % (36-47) 01/08/25 17:22 MCV 92.8 fl (85-98) 01/08/25 17:22 MCH 28.3 pg (27-33) 01/08/25 17:22 MCHC 30.5 g/dL (30-55) 01/08/25 17:22 RDW 17.3 % (12.1-15.1) H 01/08/25 17:22 Plt Count 242 10^3/cmm (157-399) 01/08/25 17:22 MPV 8.8 fL (7.4-10.4) 01/08/25 17:22 Neut % (Auto) 77.9 % 01/08/25 17:22 Lymph % (Auto) 14.9 % 01/08/25 17:22 Peach % (Auto) 5.9 % 01/08/25 17:22 Eos % (Auto) 0.7 % 01/08/25 17:22 Baso % (Auto) 0.3 % 01/08/25 17:22 Neut # (Auto) 6.91 10^3/uL (1.8-7.7) 01/08/25 17:22 Lymph # (Auto) 1.3 10^3/uL (0.8-4.8) 01/08/25 17:22 Peach # (Auto) 0.5 10^3/uL (0.2-0.9) 01/08/25 17:22 Eos # (Auto) 0.1 10^3/uL (0.0-0.8) 01/08/25 17:22 Baso # (Auto) 0.0 10^3/uL (0.0-0.1) 01/08/25 17:22 Nucleated RBC % (auto) 0 % 01/08/25 17:22 Nucleated RBCs # 0.0 /100WBC 01/08/25 17:22 Sodium 137 mmol/L (136-145) 01/08/25 17:22 Potassium 3.7 mmol/L (3.5-5.1) 01/08/25 17:22 Chloride 101 mmol/L (98-107) 01/08/25 17:22 Carbon Dioxide 29 mmol/L (22-29) 01/08/25 17:22 Anion Gap 10.7 (5-19) 01/08/25 17:22 BUN 11 mg/dL (8-23) 01/08/25 17:22 Creatinine 0.6 mg/dL (0.5-0.9) 01/08/25 17:22 GFR Calculation 99.4 mL/min (90-130) 01/08/25 17:22 Glucose 128 mg/dL (65-115) H 01/08/25 17:22 Calculated Osmolality 285 mOsm/kg (285-295) 01/08/25 17:22 Lactic Acid 1.3 mmol/L (0.5-2.2) 01/08/25 17:22 Calcium 8.7 mg/dL (8.5-10.5) 01/08/25 17:22 Total Bilirubin 0.3 mg/dL (0.15-1.2) 01/08/25 17:22 AST 17 U/L (0-32) 01/08/25 17:22 ALT 13 U/L (0-33) 01/08/25 17:22 Alkaline Phosphatase 161 U/L (35-105) H 01/08/25 17:22 Total Protein 6.4 g/dL (6.6-8.7) L 01/08/25 17:22 Albumin 3.6 g/dL (3.5-5.2) 01/08/25 17:22 Globulin 2.8 g/dL (1.3-4.6) 01/08/25 17:22 Discharge Plan Discharge Patient Disposition: Home Clinical Impression: Intractable pain, Sarcoma of right lower extremity Condition: Stable Prescriptions: No Action Eliquis 5 mg tablet 5 mg PO BID Qty: 60 1RF albuterol sulfate 2.5 mg /3 mL (0.083 %) solution for nebulization 2.5 mg inhalation QID PRN (Reason: shortness of breath or wheezing) Qty: 90 2RF metolazone 5 mg tablet 5 mg PO DAILY 20 Days Qty: 20 3RF Rx Instructions: take x 5 days, then take as needed when weigh gain is >5Ibs naloxone [Narcan] 4 mg/actuation spray,non-aerosol 4 mg intranasal Q2M PRN (Reason: opioid overdose) Qty: 2 0RF Rx Instructions: spray 1 dose into ONE nostril; alternate nostrils w each dose until help arrives pantoprazole 40 mg tablet,delayed release (DR/EC) PO guaifenesin [Mucinex] 1,200 mg tablet extended release 12hr 1,200 mg PO BID Qty: 60 6RF Rx Instructions: may use generic (DME) Compression Supporting Hose See Rx Instructions .Route .MEDSUPPLY Qty: 1 0RF Rx Instructions: As directed albuterol sulfate 90 mcg/actuation HFA aerosol inhaler See Rx Instructions .ROUTE .COMPLEX Qty: 8.5 1RF Dose Instruction: INHALE 1 PUFF FOUR TIMES DAILY NEEDED FOR SHORTNESS OF BREATH or wheezing Rx Instructions: INHALE 1 PUFF FOUR TIMES DAILY NEEDED FOR SHORTNESS OF BREATH or wheezing duloxetine 30 mg capsule,delayed release(DR/EC) 30 mg PO DAILY Qty: 90 1RF metoprolol tartrate 25 mg tablet See Rx Instructions .ROUTE .COMPLEX Qty: 180 3RF Dose Instruction: TAKE 1 TABLET BY MOUTH TWICE DAILY Rx Instructions: TAKE 1 TABLET BY MOUTH TWICE DAILY escitalopram oxalate 20 mg tablet 20 mg PO DAILY Qty: 90 1RF mupirocin calcium 2 % cream 1 applic topical BID 10 Days Qty: 30 0RF potassium chloride 20 mEq tablet extended release See Rx Instructions PO DAILY Qty: 90 0RF Rx Instructions: 2 tablets BID x 3 days, then ONE tablet daily thereafter orally daily; bumetanide 2 mg tablet 2 mg PO BID Qty: 120 1RF prochlorperazine maleate [Compazine] 10 mg tablet 10 mg PO Q4H PRN (Reason: mild nausea) Qty: 30 3RF methocarbamol 500 mg tablet 1,000 mg PO Q8H PRN (Reason: Spasms) Qty: 120 1RF tamsulosin 0.4 mg capsule 0.4 mg PO BID Qty: 60 3RF oxycodone 20 mg tablet 20 mg PO Q6H PRN (Reason: pain) 30 Days Qty: 120 0RF gabapentin 600 mg tablet 600 mg PO BID Qty: 90 1RF lubiprostone 24 mcg capsule See Rx Instructions .ROUTE .COMPLEX Qty: 60 0RF Dose Instruction: take 1 capsule BY MOUTH TWICE DAILY Rx Instructions: take 1 capsule BY MOUTH TWICE DAILY acetaminophen-codeine 300-30 mg tablet 1 tab PO Q4H MDD 3000mg tylenol PRN (Reason: breakthrough pain) Qty: 180 0RF morphine 100 mg tablet extended release 100 mg PO BID 30 Days Qty: 60 0RF nitroglycerin [Nitrostat] 0.4 mg Tablet, Sublingual 0.4 mg SUBLINGUAL Q5M PRN (Reason: Chest Pain) Rx Instructions: do not exceed 3 doses per episode cyanocobalamin (vitamin B-12) [Vitamin B-12] 500 mcg Tablet 500 mcg PO DAILY ondansetron 4 mg tablet,disintegrating 4 mg PO Q6H PRN (Reason: nausea and vomiting) Qty: 14 0RF lisinopril 20 mg Tablet 20 mg PO DAILY Qty: 30 0RF sennosides-docusate sodium [Senna-Time S] 8.6-50 mg tablet 1 tab-cap PO DAILY Qty: 30 0RF Discharge Orders: Discharge ED (Routine); Ordered 01/08/25 Ordered By: Edi Piedra Referrals: Cyril Ramsey MD [Primary Care Provider, Family Practice] Patient Instructions: Opioid Safety, Pain Management, Patient Portal & Reymundo Instructions Activity Restrictions/Additional Instructions: 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 Please follow-up with your cancer doctors to make sure they do not want to pursue other avenues of treatment. Print Language: Tristanian Sign Out Sign Out Data: Patient Sign Out occurred on 01/08/25 at 21:23. Patient's care was discussed, and care was transferred from Garth Colin DO to Edi Piedra MD. Post-Handoff Eval: Patient remained hemodynamically stable throughout ED course. CT scan shows significant increase in tumor burden within the right leg. I had a long conversation with the patient's daughter who is a nurse and shows good understanding of the situation and understands that her mother is terminal and that efforts should be focused on palliative interventions. It appears that her visit emergency department is precipitated by running out of home pain medications. She takes high dose MS Contin and pain was significantly relieved with IV Dilaudid and morphine. New prescription has been called in and can be picked up tomorrow morning. She was given a dose of MS Contin here by mouth and feels much better. Patient and doctor will contact her oncology team to discuss increase in tumor burden seen on CT to see whether any further measures are warranted but otherwise we will keep her comfortable with her home meds. 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 [employer] Fwd Documented by User: Edi Piedra MD 01/09/25 00:09 HPI - General Adult General: Chief complaint: Extremity Injury, Lower Stated complaint: R hip pain Time Seen by Provider: 01/08/25 16:53 Related Data Home Medications ?Medication ?Instructions ?Recorded ?Confirmed nitroglycerin 0.4 mg sublingual 0.4 mg sublingual Q5M PRN Chest 04/30/22 01/03/25 tablet (Nitrostat) Pain cyanocobalamin (vitamin B-12) 500 500 mcg PO DAILY 07/10/22 01/03/25 mcg tablet (Vitamin B-12) pantoprazole 40 mg tablet,delayed mg PO 11/01/24 01/03/25 release Previous Rx's ?Medication ?Instructions ?Recorded Compression Supporting Hose #1 ea 05/30/23 ondansetron 4 mg disintegrating 4 mg PO Q6H PRN nausea and 09/21/23 tablet vomiting #14 tabs albuterol sulfate 2.5 mg/3 mL 2.5 mg (3 mL) inhalation QID PRN 01/30/24 (0.083 %) solution for nebulization shortness of breath or wheezing #90 mL lisinopril 20 mg tablet 20 mg PO DAILY #30 tabs 02/23/24 sennosides 8.6 mg-docusate sodium 1 tab-cap PO DAILY #30 tabs 02/23/24 50 mg tablet (Senna-Time S) albuterol sulfate 90 mcg/actuation See Rx Instructions .Route 07/16/24 aerosol inhaler .COMPLEX #8.5 grams duloxetine 30 mg capsule,delayed 30 mg PO DAILY #90 caps 07/23/24 release metoprolol tartrate 25 mg tablet See Rx Instructions .Route 07/23/24 .COMPLEX #180 tabs metolazone 5 mg tablet 5 mg PO DAILY 20 days #20 tabs 08/07/24 escitalopram oxalate 20 mg tablet 20 mg PO DAILY #90 tabs 08/20/24 mupirocin calcium 2 % topical cream 1 applic topical BID 10 days #30 08/29/24 grams potassium chloride 20 mEq See Rx Instructions PO DAILY #90 09/18/24 tablet,extended release tabs naloxone 4 mg/actuation nasal 4 mg intranasal Q2M PRN opioid 10/12/24 spray (Narcan) overdose #2 ea bumetanide 2 mg tablet 2 mg PO BID #120 tabs 10/15/24 prochlorperazine maleate 10 mg 10 mg PO Q4H PRN mild nausea #30 11/01/24 tablet (Compazine) tabs methocarbamol 500 mg tablet 1,000 mg (2 x 500 mg) PO Q8H PRN 11/12/24 Spasms #120 tabs tamsulosin 0.4 mg capsule 0.4 mg PO BID #60 caps 11/12/24 guaifenesin 1,200 mg tablet, 1,200 mg PO BID #60 tabs 11/22/24 extended release 12 hr (Mucinex) oxycodone 20 mg tablet 20 mg PO Q6H PRN pain 30 days #120 12/12/24 tabs gabapentin 600 mg tablet 600 mg PO BID #90 tabs 12/24/24 lubiprostone 24 mcg capsule See Rx Instructions .Route 12/25/24 .COMPLEX #60 caps acetaminophen 300 mg-codeine 30 mg 1 tab PO Q4H PRN breakthrough pain 12/26/24 tablet #180 tabs morphine 100 mg tablet,extended 100 mg PO BID pain 30 days #60 tabs 12/26/24 release apixaban 5 mg tablet (Eliquis) 5 mg PO BID #60 tabs 12/27/24 Allergies Allergy/AdvReac Type Severity Reaction Status Date / Time phenytoin (From Dilantin) Allergy Mild Rash Verified 12/27/24 08:27 sulfamethoxazole (From Allergy ALGY-Hives Verified 12/27/24 08:27 Bactrim) trimethoprim (From Bactrim) Allergy ALGY-Hives Verified 12/27/24 08:27 PFSH ED PFSH: Medical History 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 Constipation Hypotension Metabolic acidosis Opiate or related narcotic overdose Acute encephalopathy GI bleeding Vomiting REINA (acute kidney injury) Pneumonia Right inguinal hernia Abnormal stress test Chronic indwelling Stewart catheter Elevated LFTs Elevated troponin Fall Weakness Encephalopathy Urinary tract infection COVID-19 Viral upper respiratory tract infection with cough Lower extremity edema REINA (acute kidney injury) Oxygen dependent COPD (chronic obstructive pulmonary disease) Depression Heart failure with preserved ejection fraction YOLY on CPAP Anxiety and depression CAD (coronary artery disease) Complete rotator cuff tear of left shoulder Primary osteoarthritis, left shoulder Chronic wound infection of abdomen Weakness of left shoulder Cancer related pain Nausea and vomiting Pneumonia Essential hypertension Degenerative arthritis Chronic pain of right knee Chronic narcotic use History of nonmelanoma skin cancer Metabolic syndrome Sleep apnea GERD with apnea Conn syndrome GERD (gastroesophageal reflux disease) Hypertension Surgical History Port-A-Cath in place History of surgery on lower extremity (02/14/20) 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 Bean Family History Mother Family history of premature coronary artery disease Hypertension Brother Cancer Hypertension Sister Cancer Father Family history of premature coronary artery disease Hypertension Denies family history of Diabetes CAD (coronary artery disease) Clotting disorder Dementia Hyperlipidemia Psychiatric illness Chronic kidney disease (CKD) Suicide Anesthesia complication Bleeding disorder Lung disease Stroke Social History Smoking and tobacco/nicotine status: former use of tobacco/nicotine Quit status (tobacco/nicotine): has quit using Year quit tobacco: 2016 Former quit date comment: 2ppd x 36 years Second hand smoke exposure: No Alcohol intake: never Substance/Drug Use: never Adopted: No Caregiver/support person: Yes Lives independently: Yes Marital status: Single Current occupational status: employed 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 Course Vital Signs: Vital signs: Vital Signs Temperature 98.2 F 01/08/25 16:54 Pulse Rate 95 01/08/25 22:13 Respiratory Rate 14 01/08/25 22:00 Blood Pressure 143/71 01/08/25 22:13 Pulse Oximetry 93 01/08/25 22:13 Oxygen Delivery Me thod Room Air 01/08/25 16:54 MDM - General Adult Medical Decision Making Care signed out to Dr. Piedra at change of shift. See final notes for diagnosis and disposition. Lab Data 01/08/25 17:22 01/08/25 17:22 Radiology Impressions Hip/Pelvis X-Ray 01/08/25 16:53 IMPRESSION: No acute findings. Hip CT 01/08/25 17:12 IMPRESSION: Very large soft tissue mass of the right thigh as detailed above. The mass has increased dramatically in size over the past 5 months Laboratory Results WBC 8.87 10^3/uL (3.29-11.43) 01/08/25 17:22 RBC 4.00 10^6/uL (3.85-5.65) 01/08/25 17:22 Hgb 11.30 g/dL (11.27-16.99) 01/08/25 17:22 Hct 37.1 % (36-47) 01/08/25 17:22 MCV 92.8 fl (85-98) 01/08/25 17:22 MCH 28.3 pg (27-33) 01/08/25 17:22 MCHC 30.5 g/dL (30-55) 01/08/25 17:22 RDW 17.3 % (12.1-15.1) H 01/08/25 17:22 Plt Count 242 10^3/cmm (157-399) 01/08/25 17:22 MPV 8.8 fL (7.4-10.4) 01/08/25 17:22 Neut % (Auto) 77.9 % 01/08/25 17:22 Lymph % (Auto) 14.9 % 01/08/25 17:22 Peach % (Auto) 5.9 % 01/08/25 17:22 Eos % (Auto) 0.7 % 01/08/25 17:22 Baso % (Auto) 0.3 % 01/08/25 17:22 Neut # (Auto) 6.91 10^3/uL (1.8-7.7) 01/08/25 17:22 Lymph # (Auto) 1.3 10^3/uL (0.8-4.8) 01/08/25 17:22 Peach # (Auto) 0.5 10^3/uL (0.2-0.9) 01/08/25 17:22 Eos # (Auto) 0.1 10^3/uL (0.0-0.8) 01/08/25 17:22 Baso # (Auto) 0.0 10^3/uL (0.0-0.1) 01/08/25 17:22 Nucleated RBC % (auto) 0 % 01/08/25 17:22 Nucleated RBCs # 0.0 /100WBC 01/08/25 17:22 Sodium 137 mmol/L (136-145) 01/08/25 17:22 Potassium 3.7 mmol/L (3.5-5.1) 01/08/25 17:22 Chloride 101 mmol/L (98-107) 01/08/25 17:22 Carbon Dioxide 29 mmol/L (22-29) 01/08/25 17:22 Anion Gap 10.7 (5-19) 01/08/25 17:22 BUN 11 mg/dL (8-23) 01/08/25 17:22 Creatinine 0.6 mg/dL (0.5-0.9) 01/08/25 17:22 GFR Calculation 99.4 mL/min (90-130) 01/08/25 17:22 Glucose 128 mg/dL (65-115) H 01/08/25 17:22 Calculated Osmolality 285 mOsm/kg (285-295) 01/08/25 17:22 Lactic Acid 1.3 mmol/L (0.5-2.2) 01/08/25 17:22 Calcium 8.7 mg/dL (8.5-10.5) 01/08/25 17:22 Total Bilirubin 0.3 mg/dL (0.15-1.2) 01/08/25 17:22 AST 17 U/L (0-32) 01/08/25 17:22 ALT 13 U/L (0-33) 01/08/25 17:22 Alkaline Phosphatase 161 U/L (35-105) H 01/08/25 17:22 Total Protein 6.4 g/dL (6.6-8.7) L 01/08/25 17:22 Albumin 3.6 g/dL (3.5-5.2) 01/08/25 17:22 Globulin 2.8 g/dL (1.3-4.6) 01/08/25 17:22 All radiology interpretation(s) finalized by discharge Discharge Plan Discharge Patient Disposition: Home Clinical Impression: Intractable pain, Sarcoma of right lower extremity Condition: Stable Prescriptions: No Action Eliquis 5 mg tablet 5 mg PO BID Qty: 60 1RF albuterol sulfate 2.5 mg /3 mL (0.083 %) solution for nebulization 2.5 mg inhalation QID PRN (Reason: shortness of breath or wheezing) Qty: 90 2RF metolazone 5 mg tablet 5 mg PO DAILY 20 Days Qty: 20 3RF Rx Instructions: take x 5 days, then take as needed when weigh gain is >5Ibs naloxone [Narcan] 4 mg/actuation spray,non-aerosol 4 mg intranasal Q2M PRN (Reason: opioid overdose) Qty: 2 0RF Rx Instructions: spray 1 dose into ONE nostril; alternate nostrils w each dose until help arrives pantoprazole 40 mg tablet,delayed release (DR/EC) PO guaifenesin [Mucinex] 1,200 mg tablet extended release 12hr 1,200 mg PO BID Qty: 60 6RF Rx Instructions: may use generic (DME) Compression Supporting Hose See Rx Instructions .Route .MEDSUPPLY Qty: 1 0RF Rx Instructions: As directed albuterol sulfate 90 mcg/actuation HFA aerosol inhaler See Rx Instructions .ROUTE .COMPLEX Qty: 8.5 1RF Dose Instruction: INHALE 1 PUFF FOUR TIMES DAILY NEEDED FOR SHORTNESS OF BREATH or wheezing Rx Instructions: INHALE 1 PUFF FOUR TIMES DAILY NEEDED FOR SHORTNESS OF BREATH or wheezing duloxetine 30 mg capsule,delayed release(DR/EC) 30 mg PO DAILY Qty: 90 1RF metoprolol tartrate 25 mg tablet See Rx Instructions .ROUTE .COMPLEX Qty: 180 3RF Dose Instruction: TAKE 1 TABLET BY MOUTH TWICE DAILY Rx Instructions: TAKE 1 TABLET BY MOUTH TWICE DAILY escitalopram oxalate 20 mg tablet 20 mg PO DAILY Qty: 90 1RF mupirocin calcium 2 % cream 1 applic topical BID 10 Days Qty: 30 0RF potassium chloride 20 mEq tablet extended release See Rx Instructions PO DAILY Qty: 90 0RF Rx Instructions: 2 tablets BID x 3 days, then ONE tablet daily thereafter orally daily; bumetanide 2 mg tablet 2 mg PO BID Qty: 120 1RF prochlorperazine maleate [Compazine] 10 mg tablet 10 mg PO Q4H PRN (Reason: mild nausea) Qty: 30 3RF methocarbamol 500 mg tablet 1,000 mg PO Q8H PRN (Reason: Spasms) Qty: 120 1RF tamsulosin 0.4 mg capsule 0.4 mg PO BID Qty: 60 3RF oxycodone 20 mg tablet 20 mg PO Q6H PRN (Reason: pain) 30 Days Qty: 120 0RF gabapentin 600 mg tablet 600 mg PO BID Qty: 90 1RF lubiprostone 24 mcg capsule See Rx Instructions .ROUTE .COMPLEX Qty: 60 0RF Dose Instruction: take 1 capsule BY MOUTH TWICE DAILY Rx Instructions: take 1 capsule BY MOUTH TWICE DAILY acetaminophen-codeine 300-30 mg tablet 1 tab PO Q4H MDD 3000mg tylenol PRN (Reason: breakthrough pain) Qty: 180 0RF morphine 100 mg tablet extended release 100 mg PO BID 30 Days Qty: 60 0RF nitroglycerin [Nitrostat] 0.4 mg Tablet, Sublingual 0.4 mg SUBLINGUAL Q5M PRN (Reason: Chest Pain) Rx Instructions: do not exceed 3 doses per episode cyanocobalamin (vitamin B-12) [Vitamin B-12] 500 mcg Tablet 500 mcg PO DAILY ondansetron 4 mg tablet,disintegrating 4 mg PO Q6H PRN (Reason: nausea and vomiting) Qty: 14 0RF lisinopril 20 mg Tablet 20 mg PO DAILY Qty: 30 0RF sennosides-docusate sodium [Senna-Time S] 8.6-50 mg tablet 1 tab-cap PO DAILY Qty: 30 0RF Discharge Orders: Discharge ED (Routine); Ordered 01/08/25 Ordered By: Edi Piedra Referrals: Cyril Ramsey MD [Primary Care Provider, Family Practice] Patient Instructions: Opioid Safety, Pain Management, Patient Portal & Reymundo Instructions Activity Restrictions/Additional Instructions: 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 Please follow-up with your cancer doctors to make sure they do not want to pursue other avenues of treatment. Print Language: Tristanian Sign Out Sign Out Data: Patient Sign Out occurred on 01/08/25 at 21:23. Patient's care was discussed, and care was transferred from Garth Colin DO to Edi Piedra MD. Post-Handoff Eval: Patient remained hemodynamically stable throughout ED course. CT scan shows significant increase in tumor burden within the right leg. I had a long conversation with the patient's daughter who is a nurse and shows good understanding of the situation and understands that her mother is terminal and that efforts should be focused on palliative interventions. It appears that her visit emergency department is precipitated by running out of home pain medications. She takes high dose MS Contin and pain was significantly relieved with IV Dilaudid and morphine. New prescription has been called in and can be picked up tomorrow morning. She was given a dose of MS Contin here by mouth and feels much better. Patient and doctor will contact her oncology team to discuss increase in tumor burden seen on CT to see whether any further measures are warranted but otherwise we will keep her comfortable with her home meds. 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
--- OUTSIDE RECORDS SUMMARY | 2025-01-08 16:55 | XMS_ITS | Encounter Summary ---
Author Organization [facility] Address [address] [place] [address] Care Team Providers Care Dredge Master Name Role Phone Ok Sanchez MD Primary Care Provider Encounter Details Date Type Department Care Team (Late st Contact Info) Description 10[facility]17[facility]2006 [facility] [address] [place] [address] Precordial Pain (Primary Dx) Social History Tobacco Use Types Packs/Day Years Used Date Smoking Tobacco: Never Assessed Comments Unknown Sex and Gender Information Value Date Recorded Sex Assigned at Not on file 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 [facility] has changed the methodology for TSH, and with this change the reference range has changed from 0.49-4.67 to 0.35-5.5 uIU/ml. 10/17/2006 9:48 PM CDT Melina Angel MD CHEMISTRY ORDERABLES Edited Performing Organization Address [facility] Phone Number INTERFACE SYSTEM Refer to clinic/hospital department * CARDIAC ENZYMES (10/17/2006 9:48 PM CDT) TROPONIN I <0.1 0.0 - 1.3 ng/mL INTERFACE SYSTEM Comment: As of 06 the Troponin Reference Range has changed from 0.0-1.5 ng/ml to 0.0- 1.3 ng/ml due to a change in testing methodology. CKMB <0.2 0.0 - 5.0 ng/mL INTERFACE SYSTEM 10/17/2006 9:48 PM CDT Rik Zabala DO CHEMISTRY ORDERABLES Edite d INTERFACE [...] Neri Tinsley M.D. Electronically Signed By: Neri iTnsley M.D. Date Signed: 10/18/06 JAW Melina Angel MD GA ORDERABLES Final Result * XR CHEST PA [...] HEMATOLOGY ORDERABLES Edit ed Performing Organization Address [facility] de Phone Number INTERFACE SYSTEM Refer [...] HEMATOLOGY ORDERABLES Edit ed Performing Organization Address [facility] de Phone Number INTERFACE SYSTEM Refer to [...] Goal INR 3.0; range 2.5 - 3.5 POST-FL Goal INR 2.5; range 2.0 - 3.0 or Goal 3.0; range 2.5 - 3.5 Atrial Fibrillation Goal INR 2.5; range 2.0 - 3.0 Ischemic Stroke Goal INR 2.5; range 2.0 - 3.0 For additional information see Guidelines for Anticoagulation available from the pharmacy [facility]. 10/17/2006 2:53 PM CDT Rik Zabala DO HEMATOLOGY ORDERABLES Edit ed Performing Organization Address [facility] Phone Number INTERFACE SYSTEM Refer to clinic/hospital [...] CHEMISTRY ORDERABLES Edite d Performing Organization Address [facility] Phone Number INTERFACE SYSTEM Refer to clinic/hospital [...] CHEMISTRY ORDERABLES Edite d Performing Organization Address [facility] Phone Number INTERFACE SYSTEM Refer to clinic/hospital department documented in this encounter Visit Diagnoses Diagnosis Precordial pain- Primary documented in this encounter Care Teams Dredge Master Relationship Specialty Start Date End Date Ok Sanchez MD PCP - General Internal Medicine 10/01/12 documented as of this encounter
--- OUTSIDE RECORDS SUMMARY | 2025-01-08 16:55 | XMS_ITS | Encounter Summary ---
Author Organization [facility] Address [address] [place] [address] Care Team Providers Care Lumber Inspector Name Role Phone Ok Sanchez MD Primary Care Provider Reason for Referral * Auth/Cert (Routine) Specialty Diagnoses / Procedures Referred By Contac t Referred To Contact Cardiology Diagnoses Encounter for loop recorder at end of battery life Procedures CL EVENT RECORDER REMOVAL Anastasia Lee MD Phone: tel: fax: [facility] [address] [place] [address] Phone: tel: fax: Referral ID Status Reason Start Date Expiration Date Visits Re quested Visits Authorized [id number] 03/22/2018 2019 1 1 ERY SHOPPER Encounter Details Date Type Department Care Team (Late st Contact Info) Description 03/22/[address] 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 Exam was auto-finalized as part of the [employer] conversion project. Procedure Note Darron Veliz - 10/31/2020 Order information only. Exam was auto-finalized as part of the [employer] conversion project. us Anastasia Lee MD FLUOROSCOPY ORDERABLES Final Result documented in this encounter Visit Diagnoses Diagnosis Encounter for loop recorder at end of battery life Encounter for loop recorder at end of battery life documented in this encounter Care Teams Lumber Inspector Relationship Specialty Start Date End Date Ok Sanchez MD PCP - General Internal Medicine 10/01/12 documented as of this encounter
--- OUTSIDE RECORDS SUMMARY | 2025-01-08 16:55 | XMS_ITS ---
Author Organization [email or web address] Address [address] Low: Epic Prelude ADT [place] [address] Care Team Providers Care Branch Rental Manager Name Role Phone Unavailable Primary Care Provider [...]
--- OUTSIDE RECORDS SUMMARY | 2025-01-08 16:55 | XMS_ITS | Encounter Summary ---
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
--- OUTSIDE RECORDS SUMMARY | 2025-01-08 16:55 | XMS_ITS | Clinical Summary ---
Author Organization [facility] Address [address] [place] [address] Care Team Providers Care Pediatric Intensive Physician Name Role Phone Ok Sanchez MD Primary Care Provider Allergies Active Allergy Reactions Criticality Noted Date Comments Penicillins Rash Low 09/30/2012 Phenytoin Sodium Extended Rash Low 10/27/2013 Medications CHLORDIAZEPOXIDE /CLIDINIUM BR (LIBRAX, WITH CLIDINIUM, ORAL) Take by mouth. Active buPROPion HCl (WELLBUTRIN XL) 300 mg Extended Release 24 hour tablet Take 300 mg by mouth daily barrel burner. 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 Gender Identity Not on file Sexual Orientation Not on file Occupation Industry Job Start Date Job End Date Not on file Not on file Not on file Not on file Last Filed Vital Signs Vital Sign Reading Time Taken Comments Blood Pressure 159/68 04/27/2018 10:55 AM SENIOR PHYSICAL THERAPIST Pulse 95 04/27/2018 10:55 AM SENIOR PHYSICAL THERAPIST Temperature 37.5 C (99.5 F) 04/27/2018 7:05 AM SENIOR PHYSICAL THERAPIST Respiratory Rate 18 04/27/2018 10:55 AM SENIOR PHYSICAL THERAPIST Oxygen Saturation 98% 04/27/2018 10:55 AM SENIOR PHYSICAL THERAPIST Inhaled Oxygen Concentration - - Weight 85 kg (187 lb 6.3 oz) 04/27/2018 7:05 AM SENIOR PHYSICAL THERAPIST Height 162.6 cm (5' 4 ) 04/27/2018 7:05 AM SENIOR PHYSICAL THERAPIST Body Mass Index 32.17 04/27/2018 7:05 AM SENIOR PHYSICAL THERAPIST Plan of Treatment Health Maintenance Due Date [...] PCV) 04/23/2021 04/23/2020, 01/21/2020 INFLUENZA VACCINE (#1) 2024 03/01/2018, 2013 Insurance GENERIC PAYOR Advance Directives For more information, please contact: [phone] * Full Code (Latest Code Status on [...] 10:33 PM 10/31/2013 1:56 PM Care Teams Pediatric Intensive Physician Relationship Specialty Start Date End Date Ok Sanchez MD PCP - General Internal Medicine 10/01/12
--- OUTSIDE RECORDS SUMMARY | 2025-01-08 16:55 | XMS_ITS | Patient Health Record ---
Author Organization [facility], [facility] Address [address] [place] [address] Care Team Providers Care Drafter Geophysical Name Role Phone Cyril aRmsey MD Primary Care Provider Unavailab KYRA Gabriel Unavailable [phone] KATERYNA GUZMAN Unavailable [phone] Derek Arzate Unavailable [phone] Allergies Allergen (clinical drug ingredient) Drug/Non Drug Allergy documented on EMR Reaction Allergy Type Onset Date Status phenytoin Dilantin allergy Drug Allergy Active Results Component Value Reference Range Notes Urinalysis, Routine Reviewed date:04/24/2024 12:02:12 PM Interpretation: Performing Lab: Notes/Report: Urine-Color yellow Appearance clear Glucose - Bilirubin - Ketones - Specific [place] 1.015 Occult Blood - pH 6.0 Urine Protein - Urobilinogen,Semi-Qn - Nitrite, Urine - WBC Esterase trace Gx - Recurrent Persistent Co mplicated UTI Reviewed date:06/04/2024 08:10:55 AM Interpretation: Performing Lab:, [id number] Notes/Report: PatientName: : Gender: PatientRelation: PatientAddress: , , , InsuranceName: InsuranceCode: Test Result: Guidance 7.0, Voided Urine, UTI Surgical, Test Result: PATHOGENIC DNA DETECTED amp; ESBL Positive*#A*F UTIAbnormalFlag: Guidance 7.0, Voided Urine, UTI Surgical, UTIAbnormalFlag: A Urinalysis, Routine Reviewed date:05/31/2024 11:52:15 AM Interpretation: Performing Lab: Notes/Report: Urine-Color yellow Appearance clear Glucose - Bilirubin - Ketones - Specific [place] 1.015 Occult Blood - pH 6.0 Urine Protein - Urobilinogen,Semi-Qn - Nitrite, Urine - WBC Esterase 2+ Urinalysis, Routine Reviewed date:02/06/2024 04:43:46 PM Interpretation: Performing Lab: Notes/Report: Urine-Color yellow Appearance clear Glucose - Bilirubin - Ketones - Specific [place] 1.020 Occult Blood 1+ pH 6.0 Urine Protein - Urobilinogen,Semi-Qn - Nitrite, Urine - WBC Esterase - Urinalysis Gross Exam - Reason For Referral Reason [facility] Diagnosis 1 Urinary retention (R 33.9) Diagnosis 2 Chronic suprapubic c atheter (Z93.59) Diagnosis 3 Recurrent UTI (N39.0 ) Referral Organization [facility] Referring Provider First Name KYRA Referring Provider Last Name SHIRIN Referring Provider [facility] Referred Provider Specialty Urology Referral Priority Routine [...] Active Gabapentin 600 MG 1 tablet Orally twic e a day 11/14/2023 Active Mucinex 600 MG [...] Problem Status W/U Status Risk Notes Problem Essential hypertension (29148359) Essential (primary) hypertension (I10) Active confirmed Problem 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 Problem COPD - Chronic obstructive pulmonary disease (57137330) Chronic obstructive pulmonary disease, unspecified COPD type (J44.9) Active confirmed Problem Change of urinary catheter bag (procedure) (036219023) Catheter (urine) change required (Z46.6) Active confirmed Problem Renal cyst (527441843) Bilateral renal cysts (N28.1) Active confirmed Problem Recurrent urinary tract infection (467994930) Recurrent UTI (N39.0) Active confirmed Problem Suprapubic urinary catheter in situ (finding) (975530558) Chronic suprapubic catheter (Z93.59) Active confirmed Problem Urinary retention (614603538) Urinary retention (R33.9) Active confirmed Problem Presence of indwelling Reis catheter (Z97.8) Active [...] Performed Result Body Sit e Voiding Trial 02/06/2024 02/07/2024 N/A SP Tube Change 05/31/2024 05/31/2024 N/A Encounters Encounter Location Date Provider Diagnosis [facility] [address] [facility] [place] [address] 02/06/2024 KATERYNA GUZMAN Urinary retention R33.9 ; Bilateral renal cysts N28.1 ; Metastatic sarcoma C79.89 ; Catheter (urine) change required Z46.6 and Recurrent UTI N39.0 [facility] [address] [place] [address] 03/20/2024 Derek Pevril Urinary retention R33.9 ; Bilateral renal cysts N28.1 ; Metastatic sarcoma C79.89 and Recurrent UTI N39.0 [facility], [facility] [address] [place] [address] 04/24/2024 Derek Arzate Urinary retention R33.9 ; Bilateral renal cysts N28.1 ; Metastatic sarcoma C79.89 and Recurrent UTI N39.0 [facility], [facility] [address] [facility] [place] [address] 05/01/2024 KATERYNA GUZMAN Urinary retention R33.9 and Recurrent UTI N39.0 [facility] [address] [facility] [place] [address] 05/31/2024 KYRA CARPIO Urinary retention R33.9 ; Low back pain M54.50 ; Leukocytes in urine R82.998 ; Recurrent UTI N39.0 and Encounter for attention to cystostomy Z43.5 [facility], [facility] [address] [facility] [place] [address] 02/08/2024 KYRA CARPIO [facility], [facility] [address] [facility] [place] [address] 02/09/2024 CARO CENTERER [facility], [facility] [address] [facility] [place] [address] 03/22/2024 Derek Arzate [facility], [facility] [address] [facility] [place] [address] 04/24/2024 CARO CENTERER [facility], [facility] [address] [facility] [place] [address] 04/24/2024 KATERYNA GUZMAN Preop testing Z01.81 8 ; Essential (primary) hypertension I10 and Chronic obstructive pulmonary disease, unspecified COPD type J44.9 [facility] [address] [facility] [place] [address] 04/25/2024 KYRA CARPIO Preop testing Z01.81 8 ; Urinary retention R33.9 and Potassium (K) deficiency E87.6 [facility] [address] [facility] [place] [address] 04/30/2024 [facility], [facility] [address] [facility] [address] [place] [address] 06/04/2024 KYRA REANO Assessments Encounter Date Diagnosis (ICD Code) Assessment Notes Treatment Notes Treatment Clinical Notes Section Notes 02/06/2024 Bilateral renal cysts (ICD-10 - N28.1) 68 yo female with urinary retention requiring Reis since October 2023. UDS shows normal compliance and capacity. Max Detrusor pressure at [id number]. VT done today if she passes will f/u in 1 month if not will schedule for SP tube in OR. How the procedure is performed was discussed along with risks/benefits/alt ernatives and postprocedural expectations. All question were answered. Plan: RTC in 1 month with Liat Branch APRN with UA and PVR Kell London Scribe, am scribing for, and in the [...] compliance and capacity. Max Detrusor pressure at 83moL21. VT done today if she passes will f/u in 1 month if not will schedule for SP tube in OR. How the procedure is performed was discussed along with risks/benefits/alt ernatives and postprocedural expectations. All question were answered. Plan: RTC in 1 month with Liat Branch APRN with UA and PVR Kell [place] Scribe, am scribing for, and in the [...] compliance and capacity. Max Detrusor pressure at 25esG14. She actually passed previous VT, however, underwent [...] and we also had further discussion with risks/benefits/alt ernatives and postprocedural expectations. Presurgical and what to [...] compliance and capacity. Max Detrusor pressure at 90rwG86. She actually passed previous VT, however, underwent [...] and we also had further discussion with risks/benefits/alt ernatives and postprocedural expectations. Presurgical and what to [...] answered. Patient satisfied with this plan. 04/24/2024 Preop testing (ICD-10 - Z01.818) 04/24/2024 Urinary retention (ICD-10 - R33.9) 69 yo female with urinary retention requiring Reis since October 2023. Previous UDS shows normal compliance and capacity. Max Detrusor pressure at 42zsJ34. She actually passed previous VT, however, underwent [...] and we also had further discussion with risks/benefits/alt ernatives and postprocedural expectations. Presurgical and what to [...] M54.50) 05/31/2024 Urinary retention (ICD-10 - R33.9) 05/31/2024 Leukocytes in urine (ICD-10 - R82.998) 04/25/2024 Urinary retention (ICD-10 - R33.9) 04/24/2024 Bilateral renal cysts (ICD-10 - N28.1) 69 yo female with urinary retention requiring Reis since October 2023. Previous UDS shows normal compliance and capacity. Max Detrusor pressure at 30jpV75. She actually passed previous VT, however, underwent [...] and we also had further discussion with risks/benefits/alt ernatives and postprocedural expectations. Presurgical and what to [...] answered. Patient satisfied with this plan. 04/24/2024 Essential (primary) hypertension (ICD-10 - I10) 03/20/2024 Metastatic sarcoma (ICD-10 - C79.89) 68 yo female with urinary retention requiring Reis since October 2023. Previous UDS shows normal compliance and capacity. Max Detrusor pressure at 67ooU33. She actually passed previous VT, however, underwent [...] and we also had further discussion with risks/benefits/alt ernatives and postprocedural expectations. Presurgical and what to [...] answered. Patient satisfied with this plan. 02/06/2024 Metastatic sarcoma (ICD-10 - C79.89) 68 yo female with urinary retention requiring Reis since October 2023. UDS shows normal compliance and capacity. Max Detrusor pressure at 67tcW04. VT done today if she passes will f/u in 1 month if not will schedule for SP tube in OR. How the procedure is performed was discussed along with risks/benefits/alt ernatives and postprocedural expectations. All question were answered. Plan: RTC in 1 month with Liat Branch APRN with UA and PVR Kell London Scribe, am scribing for, and in the presence of, Dr. Guzman. I, Dr. Kateryna Guzman, personally performed the services prescribed in this documentation, as scribed by Kell Myers, in my presence, and it is both accurate and complete. 02/06/2024 Catheter (urine) change required (ICD-10 - Z46.6) 68 yo female with urinary retention requiring Reis since October 2023. UDS shows normal compliance and capacity. Max Detrusor pressure at 32ufF95. VT done today if she passes will f/u in 1 month if not will schedule for SP tube in OR. How the procedure is performed was discussed along with risks/benefits/alt ernatives and postprocedural expectations. All question were answered. Plan: RTC in 1 month with Liat Branch APRN with UA and PVR IKell, Scribe, am scribing for, and in the presence of, Dr. Guzman. I, Dr. Kateryna Guzman, personally performed the services prescribed in this documentation, as scribed by Kell Myers, in my presence, and it is both accurate and complete. 03/20/2024 Recurrent UTI (ICD-10 - N39.0) 68 yo female with urinary retention requiring Reis since October 2023. Previous UDS shows normal compliance and capacity. Max Detrusor pressure at 63whI03. She actually passed previous VT, however, underwent [...] and we also had further discussion with risks/benefits/alt ernatives and postprocedural expectations. Presurgical and what to [...] answered. Patient satisfied with this plan. 04/24/2024 Chronic obstructive pulmonary disease, unspecified COPD type (ICD-10 - J44.9) 04/24/2024 Metastatic sarcoma (ICD-10 - C79.89) 69 yo female with urinary retention requiring Reis since October 2023. Previous UDS shows normal compliance and capacity. Max Detrusor pressure at 58bsJ03. She actually passed previous VT, however, underwent [...] and we also had further discussion with risks/benefits/alt ernatives and postprocedural expectations. Presurgical and what to [...] 05/31/2024 Recurrent UTI (ICD-10 - N39.0) 04/24/2024 Recurrent UTI (ICD-10 - N39.0) 69 yo female with urinary retention requiring Reis since October 2023. Previous UDS shows normal compliance and capacity. Max Detrusor pressure at 04xsW48. She actually passed previous VT, however, underwent [...] and we also had further discussion with risks/benefits/alt ernatives and postprocedural expectations. Presurgical and what to [...] were answered. Patient satisfied with this plan. 05/31/2024 Encounter for attention to cystostomy (ICD-10 - Z43.5) 02/06/2024 Recurrent UTI (ICD-10 - N39.0) 68 yo female with urinary retention requiring Reis since October 2023. UDS shows normal compliance and capacity. Max Detrusor pressure at 31pbM21. VT done today if she passes will f/u in 1 month if not will schedule for SP tube in OR. How the procedure is performed was discussed along with risks/benefits/alt ernatives and postprocedural expectations. All question were answered. Plan: RTC in 1 month with Liat Branch APRN with UA and PVR Kell London Scribe, am scribing for, and in the presence of, Dr. Guzman. I, Dr. Kateryna Guzman, personally performed the services prescribed in this documentation, as scribed by Kell Myers, in my presence, and it is both accurate and complete. 05/31/2024 Other SP tube changed today. Her home health will be changing SP tube from here on. Patient reports symptoms of UTI. Rx sent in, urine sent for PCR. Also, her insurance no longer covers our clinic, so she is requesting referral to [facility] in [place]. Plan Of Treatment Pending Test Test Name Order Date Chest X-ray PA and lateral [id number] CULTURE, URINE, ROUTINE (395) 04/24/2024 CULTURE, URINE, ROUTINE (395) 04/24/2024 Voiding Trial 11/14/2023 Catheter Insertion-Routine 12/12/2023 Basic Metabolic Panel 04/25/2024 Basic Metabolic Panel 04/24/2024 CBC w/ Auto Diff 04/24/2024 Electrocardiogram, 12 Lead Tracing-[id number] 04/24/2024 Medical (General) History Medical History History [...]
--- OUTSIDE RECORDS SUMMARY | 2025-01-08 16:55 | XMS_ITS | Clinical Summary ---
Author Organization [employer] Address [address] 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 [place] [address] [place] [address] [facility] [id number] Advance Directives For more information, please contact: [phone] * Full Code (Latest Code Status on File) Date Activated Date Inactivated Comments 03/19/2023 6:39 PM 03/29/2023 3:54 PM * Full Code Date Activated Date Inactivated Comments 02/28/2023 1:59 PM 03/07/2023 11:34 AM * Default Full Code - Needs Discussion Date Activated Date Inactivated Comments 02/24/2023 10:37 AM 02/28/2023 1:59 PM
--- OUTSIDE RECORDS SUMMARY | 2025-01-08 16:55 | XMS_ITS | Encounter Summary ---
Author Organization [facility] Address [address] [place] [address] Care Team Providers Care Die Maker Electronic Name Role Phone Ok Sanchez MD Primary Care Provider Reason for Referral * Outpatient Services (Routine) - Closed Specialty Diagnoses / Procedures Referred By Contac t Referred To Contact Diagnoses Syncope, unspecified Procedures CL STUDY TILT Anastasia Lee MD Phone: tel: fax: Referral ID Status Reason Start Date Expiration Date Visits Re quested Visits Authorized [id number] Closed 12/10/2014 01/10/2016 1 1 Encounter Details Date Type Department Care Team (Latest Contact Info) Description 12/10/2014 Ancillary Orders [facility] Electrophysiology Lab [address] 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 SCL/tjb - transcribed in [facility] - us Anastasia Lee MD ELECTROPHYSIOLOGY ORDERABLES Final Result [facility] documented in this encounter Visit Diagnoses Diagnosis Syncope, unspecified- Primary Syncope, unspecified documented in this encounter Care Teams Die Maker Electronic Relationship Specialty Start Date End Date Ok Sanchez MD PCP - General Internal Medicine 10/01/12 documented as of this encounter
--- NOTE | 2025-01-08 17:12 | CTR_ITS ---
PROCEDURE INFORMATION: Exam: CT Right Lower Extremity With Contrast, Hip Exam date and time: 01/08/2025 5:34 PM Age: 69 years old Clinical indication: Pain; Right; Prior surgery; Surgery date: 6+ months; Surgery type: Bilat hips; Additional info: Sarcoma, pain swelling TECHNIQUE: Imaging protocol: CT of the right lower extremity with intravenous contrast was performed. Exam focused on the hip. Radiation optimization: All CT scans at this facility use at least one of these dose optimization techniques: automated exposure control; mA and/or kV adjustment per patient size (includes targeted exams where dose is matched to clinical indication); or iterative reconstruction. Contrast material: OMNIPAQUE 350; Contrast volume: 100 ml; Contrast route: INTRAVENOUS (IV); COMPARISON: PT PET WB melanoma SUBSEQ [id number] 08/10/2024 10:59 AM RADIATION DOSE METRICS: Total DLP (mGy-cm): 705.11 FINDINGS: Bones/joints: A right hip prosthesis is well seated and well aligned. Soft tissues: There is a large rounded heterogeneous soft tissue mass lying in the anterior portion of the right upper thigh. The mass extends from the level of the hip joint down to about the mid thigh level and measures 16 cm in length, 11 cm in AP diameter and 12 cm in width. The mass compresses the femoral vessels within the upper thigh but the vessels appear patent. Numerous surgical clips are noted throughout this area along with surgical scarring. CT/CT hip RT w con [id number] IMPRESSION: Very large soft tissue mass of the right thigh as detailed above. The mass has increased dramatically in size over the past 5 months
[2025-01-08] MEDS: HYDROmorphone 0.5 MG/0.5 ML INJ 1 MG IVP ×2 (17:25→20:40)
[2025-01-08] MEDS: iohexol 350 mg/mL 500 mL Btl (per mL) IV (17:37)
[2025-01-08 17:40] LABS: Hematocrit 37.1 % (36-47); Hemoglobin 11.30 g/dL (11.27-16.99); Mean Corpuscular HGB Conc 30.5 g/dL (30-55); Mean Corpuscular Hemoglobin 28.3 pg (27-33); Mean Corpuscular Volume 92.8 fl (85-98); Nucleated Red Blood Cells % 0 %; Platelet Count 242 10^3/cmm (157-399); Red Blood Count 4.00 10^6/uL (3.85-5.65); White Blood Count 8.87 10^3/uL (3.29-11.43)
[2025-01-08 17:55] LABS: Alanine Aminotransferase 13 U/L (0-33); Albumin Level 3.6 g/dL (3.5-5.2); Alkaline Phosphatase 161 U/L (35-105); Anion Gap 10.7 (5-19); Aspartate Amino Transferase 17 U/L (0-32); Blood Urea Nitrogen 11 mg/dL (8-23); Calcium 8.7 mg/dL (8.5-10.5); Carbon Dioxide 29 mmol/L (22-29); Chloride 101 mmol/L (98-107); Globulin 2.8 g/dL (1.3-4.6); Glucose 128 mg/dL (65-115); Osmolality Calculated 285 mOsm/kg (285-295); Potassium 3.7 mmol/L (3.5-5.1); Sodium 137 mmol/L (136-145); Total Protein 6.4 g/dL (6.6-8.7)
[2025-01-08 17:56] LABS: Lactic Sepsis W/Reflex 1.3 mmol/L (0.5-2.2)
[2025-01-08 18:30] VITALS: BP 158/81; PULSE 84; O2SAT 91
[2025-01-08 20:00] VITALS: BP 161/85; PULSE 85; RESP 14; O2SAT 94
[2025-01-08] MEDS: morphine 4 mg/mL SDV 1 mL IVP (20:09)
[2025-01-08 22:00] VITALS: BP 143/71; PULSE 93; RESP 14; O2SAT 95
[2025-01-08] MEDS: morphine ER (12 HR) 30 mg tablet PO ×2 (22:04)
[2025-01-08 22:13] VITALS: BP 143/71; PULSE 95; O2SAT 93
== END 2025-01-08 22:18 | disposition home or self-care (01) ==
PROVIDERS: Family Medicine; Emergency Provider Student in an Organized Health Care Education/Training Program; PCP Family Medicine
DX: C40.21 Malignant neoplasm of long bones of right lower limb (principal); M25.551 Pain in right hip; Z79.01 Long term (current) use of anticoagulants; J44.9 Chronic obstructive pulmonary disease, unspecified; I25.10 Atherosclerotic heart disease of native coronary artery without angina pectoris; I10 Essential (primary) hypertension; Z87.891 Personal history of nicotine dependence
CPT/HCPCS: 36415; 73502; 73701; 80053; 83605; 85025; 87040; 96374; 96375; 96376; 99285; J1171; J2270; J9999

== ENCOUNTER 2025-01-10 13:07 | Oncology outpatient (recurring) (ONCR) | payer OTHER, SELFPAY ==
[2024-12-27 09:52] LABS: Hematocrit 34.6 % (36-47); Hemoglobin 10.80 g/dL (11.27-16.99); Mean Corpuscular HGB Conc 31.2 g/dL (30-55); Mean Corpuscular Hemoglobin 27.6 pg (27-33); Mean Corpuscular Volume 88.3 fl (85-98); Nucleated Red Blood Cells % 0 %; Platelet Count 267 10^3/cmm (157-399); Red Blood Count 3.92 10^6/uL (3.85-5.65); White Blood Count 8.06 10^3/uL (3.29-11.43)
[2024-12-27 10:07] LABS: Alanine Aminotransferase 9 U/L (0-33); Albumin Level 3.7 g/dL (3.5-5.2); Alkaline Phosphatase 184 U/L (35-105); Anion Gap 14.4 (5-19); Aspartate Amino Transferase 15 U/L (0-32); Blood Urea Nitrogen 19 mg/dL (8-23); Calcium 8.7 mg/dL (8.5-10.5); Carbon Dioxide 32 mmol/L (22-29); Chloride 93 mmol/L (98-107); Creatinine Clr Calc Pharmacy 69.4544; Globulin 3.4 g/dL (1.3-4.6); Glucose 175 mg/dL (65-115); Osmolality Calculated 289 mOsm/kg (285-295); Potassium 3.4 mmol/L (3.5-5.1); Sodium 136 mmol/L (136-145); Total Protein 7.1 g/dL (6.6-8.7)
[2024-12-27] MEDS: diphenhydrAMINE 50 mg/mL SDV 1mL 25 MG IVP (10:10)
[2024-12-27] MEDS: iron dextran 975 MG in sodium chloride 0.9% 1,000 ML 250.75 MG IV (11:45)
[2024-12-27 16:10] VITALS: BP 134/83; PULSE 93; RESP 17; TEMP 35.8; O2SAT 93
[2025-01-03] MEDS: alteplase 1 mg/mL SDV 2 mL 2 MG INTRACATH (11:13)
[2025-01-03 11:59] LABS: Hematocrit 35.5 % (36-47); Hemoglobin 11.30 g/dL (11.27-16.99); Mean Corpuscular HGB Conc 31.8 g/dL (30-55); Mean Corpuscular Hemoglobin 28.3 pg (27-33); Mean Corpuscular Volume 89.0 fl (85-98); Nucleated Red Blood Cells % 0 %; Platelet Count 252 10^3/cmm (157-399); Red Blood Count 3.99 10^6/uL (3.85-5.65); White Blood Count 8.83 10^3/uL (3.29-11.43)
[2025-01-03 12:35] VITALS: RESP 17
[2025-01-03] MEDS: morphine 4 mg/mL SDV 1 mL 5 MG IVP ×3 (12:35→14:55)
[2025-01-03 12:36] LABS: Alanine Aminotransferase 13 U/L (0-33); Albumin Level 3.8 g/dL (3.5-5.2); Alkaline Phosphatase 168 U/L (35-105); Anion Gap 13.8 (5-19); Aspartate Amino Transferase 14 U/L (0-32); Blood Urea Nitrogen 24 mg/dL (8-23); Calcium 8.4 mg/dL (8.5-10.5); Carbon Dioxide 34 mmol/L (22-29); Chloride 87 mmol/L (98-107); Creatinine Clr Calc Pharmacy 61.5657; Globulin 3.2 g/dL (1.3-4.6); Glucose 129 mg/dL (65-115); Osmolality Calculated 280 mOsm/kg (285-295); Sodium 132 mmol/L (136-145); Thyroid Stimulating Hormone 0.62 uIU/mL (0.27-4.20); Total Protein 7.0 g/dL (6.6-8.7)
[2025-01-03 12:41] LABS: Potassium 2.8 mmol/L (3.5-5.1)
[2025-01-03] MEDS: sodium chlor 0.9% + KCl 40 mEq 40 MEQ/1,000 ML BAG 250 MEQ IV (13:00)
[2025-01-03 13:04] LABS: Magnesium 1.5 mg/dL (1.7-2.3)
[2025-01-03 14:22] VITALS: RESP 17
[2025-01-03 14:55] VITALS: RESP 18
[2025-01-03 15:22] VITALS: RESP 18
[2025-01-03] MEDS: morphine 4 mg/mL SDV 1 mL 10 MG IVP (15:22)
[2025-01-03 15:32] VITALS: BP 126/67; PULSE 89; RESP 17; TEMP 35.5; O2SAT 91
[2025-01-10 14:00] LABS: Hematocrit 36.6 % (36-47); Hemoglobin 11.60 g/dL (11.27-16.99); Mean Corpuscular HGB Conc 31.7 g/dL (30-55); Mean Corpuscular Hemoglobin 29.2 pg (27-33); Mean Corpuscular Volume 92.2 fl (85-98); Nucleated Red Blood Cells % 0 %; Platelet Count 245 10^3/cmm (157-399); Red Blood Count 3.97 10^6/uL (3.85-5.65); White Blood Count 6.81 10^3/uL (3.29-11.43)
[2025-01-10 14:53] LABS: Alanine Aminotransferase 11 U/L (0-33); Albumin Level 3.6 g/dL (3.5-5.2); Alkaline Phosphatase 165 U/L (35-105); Anion Gap 15.5 (5-19); Aspartate Amino Transferase 13 U/L (0-32); Blood Urea Nitrogen 9 mg/dL (8-23); Calcium 8.8 mg/dL (8.5-10.5); Carbon Dioxide 26 mmol/L (22-29); Chloride 97 mmol/L (98-107); Creatinine Clr Calc Pharmacy 68.4905; Free T4 Free Thyroxine 1.37 ng/dL (0.82-1.77); Globulin 3.1 g/dL (1.3-4.6); Glucose 132 mg/dL (65-115); Osmolality Calculated 281 mOsm/kg (285-295); Potassium 3.5 mmol/L (3.5-5.1); Sodium 135 mmol/L (136-145); Thyroid Stimulating Hormone 1.99 uIU/mL (0.27-4.20); Total Protein 6.7 g/dL (6.6-8.7)
[2025-01-10 15:11] LABS: Ferritin 514 ng/mL (15-150)
[2025-01-10] MEDS: pembrolizumab 200 MG in sodium chloride 0.9% 250 ML 516 MG IV (15:39)
[2025-01-10 16:27] VITALS: BP 132/70; PULSE 78; RESP 18; TEMP 36.6; O2SAT 98
== END 2025-01-13 23:59 | disposition home or self-care (01) ==
PROVIDERS: Internal Medicine; Nurse Practitioner Family; PCP Family Medicine; Visit Provider Nurse Practitioner
DX: Z53.9 Procedure and treatment not carried out, unspecified reason; Z51.11 Encounter for antineoplastic chemotherapy; C49.21 Malignant neoplasm of connective and soft tissue of right lower limb, including hip; D50.9 Iron deficiency anemia, unspecified; R03.0 Elevated blood-pressure reading, without diagnosis of hypertension; G89.3 Neoplasm related pain (acute) (chronic); Z87.891 Personal history of nicotine dependence; E87.6 Hypokalemia; K59.00 Constipation, unspecified; Z79.899 Other long term (current) drug therapy
CPT/HCPCS: 36593; 80053; 82728; 83615; 83735; 84439; 84443; 84481; 85025; 96360; 96361; 96365; 96366; 96375; 96413; 99213; 99215; A4222; J1100; J1200; J1750; J2270; J2997; J3490; J7030; J7040; J7050; J9271; J9999

== ENCOUNTER 2025-01-31 10:00 | Oncology outpatient (recurring) (ONCR) | payer OTHER, SELFPAY ==
[2025-01-24 09:31] LABS: Hematocrit 33.4 % (36-47); Hemoglobin 10.40 g/dL (11.27-16.99); Mean Corpuscular HGB Conc 31.1 g/dL (30-55); Mean Corpuscular Hemoglobin 29.3 pg (27-33); Mean Corpuscular Volume 94.1 fl (85-98); Nucleated Red Blood Cells % 0 %; Platelet Count 200 10^3/cmm (157-399); Red Blood Count 3.55 10^6/uL (3.85-5.65); White Blood Count 5.15 10^3/uL (3.29-11.43)
[2025-01-24 09:54] LABS: Alanine Aminotransferase 155 U/L (0-33); Albumin Level 3.4 g/dL (3.5-5.2); Alkaline Phosphatase 161 U/L (35-105); Anion Gap 14.4 (5-19); Aspartate Amino Transferase 21 U/L (0-32); Blood Urea Nitrogen 8 mg/dL (8-23); Calcium 8.1 mg/dL (8.5-10.5); Carbon Dioxide 29 mmol/L (22-29); Chloride 98 mmol/L (98-107); Creatinine Clr Calc Pharmacy 69.6469; Globulin 2.7 g/dL (1.3-4.6); Glucose 134 mg/dL (65-115); Osmolality Calculated 286 mOsm/kg (285-295); Potassium 3.4 mmol/L (3.5-5.1); Sodium 138 mmol/L (136-145); Total Protein 6.1 g/dL (6.6-8.7)
[2025-01-24] MEDS: diphenhydrAMINE 50 mg/mL SDV 1mL 25 MG IVP (10:56)
[2025-01-24 10:58] VITALS: RESP 18; O2SAT 95
[2025-01-24] MEDS: iron dextran 400 MG in sodium chloride 0.9% 1,000 ML 250.75 MG IV (13:01)
[2025-01-24 17:22] VITALS: BP 104/47; PULSE 77; TEMP 36.2; O2SAT 94
[2025-01-31] MEDS: alteplase 1 mg/mL SDV 2 mL 2 MG INTRACATH (11:23)
[2025-01-31 12:02] VITALS: RESP 16
[2025-01-31] MEDS: morphine 4 mg/mL SDV 1 mL 10 MG IVP ×2 (12:02→13:05)
[2025-01-31] MEDS: levofloxacin-dextrose 5 % 500 MG/100 ML PREMIX 100 MG IV (12:10)
[2025-01-31 13:05] VITALS: RESP 18
[2025-01-31] MEDS: pembrolizumab 200 MG in sodium chloride 0.9% 250 ML 516 MG IV (13:12)
[2025-01-31 14:01] VITALS: BP 109/64; PULSE 97; TEMP 36.1; O2SAT 98
== END 2025-01-31 23:59 | disposition home or self-care (01) ==
PROVIDERS: Internal Medicine; PCP Family Medicine; Visit Provider Nurse Practitioner
DX: Z53.9 Procedure and treatment not carried out, unspecified reason; C49.21 Malignant neoplasm of connective and soft tissue of right lower limb, including hip; D50.9 Iron deficiency anemia, unspecified; Z87.891 Personal history of nicotine dependence; R19.09 Other intra-abdominal and pelvic swelling, mass and lump; Z95.828 Presence of other vascular implants and grafts
CPT/HCPCS: 36593; 80053; 83615; 85025; 96365; 96366; 96375; 96413; 99215; A4222; J1200; J1750; J1956; J2270; J2997; J7030; J7040; J7050; J9271; J9999

== ENCOUNTER → 2025-02-05 13:06 | Outpatient (BNVA) | payer OTHER, SELFPAY | PROVIDERS: PCP Family Medicine; Visit Provider Thoracic Surgery (Cardiothoracic Vascular Surgery) | DX: I96 Gangrene, not elsewhere classified (principal); L97.112 Non-pressure chronic ulcer of right thigh with fat layer exposed | CPT/HCPCS: 11042; 87070; 99213; A6212 ==

== ENCOUNTER → 2025-02-12 10:50 | Outpatient (BNVA) | payer OTHER, SELFPAY | PROVIDERS: PCP Family Medicine; Visit Provider Thoracic Surgery (Cardiothoracic Vascular Surgery) | DX: I96 Gangrene, not elsewhere classified (principal); L97.111 Non-pressure chronic ulcer of right thigh limited to breakdown of skin | CPT/HCPCS: 97597 ==

== ENCOUNTER 2025-02-21 09:11 | Oncology outpatient (recurring) (ONCR) | payer OTHER, SELFPAY ==
[2025-02-21 09:32] LABS: Hematocrit 33.1 % (36-47); Hemoglobin 10.50 g/dL (11.27-16.99); Mean Corpuscular HGB Conc 31.7 g/dL (30-55); Mean Corpuscular Hemoglobin 29.7 pg (27-33); Mean Corpuscular Volume 93.5 fl (85-98); Nucleated Red Blood Cells % 0 %; Platelet Count 230 10^3/cmm (157-399); Red Blood Count 3.54 10^6/uL (3.85-5.65); White Blood Count 5.50 10^3/uL (3.29-11.43)
[2025-02-21 10:05] LABS: Alanine Aminotransferase < 5 U/L (0-33); Albumin Level 3.4 g/dL (3.5-5.2); Alkaline Phosphatase 124 U/L (35-105); Anion Gap 14.3 (5-19); Aspartate Amino Transferase 10 U/L (0-32); Blood Urea Nitrogen 9 mg/dL (8-23); Calcium 8.6 mg/dL (8.5-10.5); Carbon Dioxide 31 mmol/L (22-29); Chloride 96 mmol/L (98-107); Creatinine Clr Calc Pharmacy 68.7433; Globulin 2.9 g/dL (1.3-4.6); Glucose 133 mg/dL (65-115); Osmolality Calculated 287 mOsm/kg (285-295); Potassium 3.3 mmol/L (3.5-5.1); Sodium 138 mmol/L (136-145); Thyroid Stimulating Hormone 2.44 uIU/mL (0.27-4.20); Total Protein 6.3 g/dL (6.6-8.7)
[2025-02-21] MEDS: morphine ER (12 HR) 15 mg Tablet PO (11:12)
[2025-02-21] MEDS: sodium chlor 0.9% + KCl 20 mEq 20 MEQ/1,000 ML BAG 500 MEQ IV (11:18)
[2025-02-21] MEDS: pembrolizumab 200 MG in sodium chloride 0.9% 250 ML 516 MG IV (12:30)
[2025-02-21 13:23] LABS: Magnesium 1.9 mg/dL (1.7-2.3)
[2025-02-21 13:35] VITALS: BP 122/65; PULSE 99
== END 2025-02-21 23:59 | disposition home or self-care (01) ==
PROVIDERS: PCP Family Medicine; Visit Provider Nurse Practitioner
DX: Z51.12 Encounter for antineoplastic immunotherapy (principal); C49.21 Malignant neoplasm of connective and soft tissue of right lower limb, including hip; D50.9 Iron deficiency anemia, unspecified; Z87.891 Personal history of nicotine dependence; Z79.899 Other long term (current) drug therapy; R22.31 Localized swelling, mass and lump, right upper limb; I95.9 Hypotension, unspecified
CPT/HCPCS: 80053; 83735; 84443; 85025; 96367; 96413; 99215; A4222; J3480; J7050; J9271; J9999

== ENCOUNTER → 2025-02-26 10:52 | Outpatient (BNVA) | payer OTHER, SELFPAY | PROVIDERS: PCP Family Medicine; Visit Provider Thoracic Surgery (Cardiothoracic Vascular Surgery) | DX: I96 Gangrene, not elsewhere classified (principal); L98.491 Non-pressure chronic ulcer of skin of other sites limited to breakdown of skin; L97.111 Non-pressure chronic ulcer of right thigh limited to breakdown of skin | CPT/HCPCS: 97597; A6210 ==

== ENCOUNTER → 2025-03-12 10:47 | Outpatient (BNVA) | payer OTHER, SELFPAY | PROVIDERS: PCP Family Medicine; Visit Provider Thoracic Surgery (Cardiothoracic Vascular Surgery) | DX: I96 Gangrene, not elsewhere classified (principal); L97.112 Non-pressure chronic ulcer of right thigh with fat layer exposed; L98.491 Non-pressure chronic ulcer of skin of other sites limited to breakdown of skin | CPT/HCPCS: A6210; A6212 ==

== ENCOUNTER 2025-03-14 09:00 | Oncology outpatient (recurring) (ONCR) | payer OTHER, SELFPAY ==
--- NOTE | 2025-03-08 10:00 | PETR_ITS ---
PROCEDURE INFORMATION: Exam: PET/CT Whole Body Exam date and time: 03/08/2025 11:20 AM Age: 69 years old Clinical indication: Condition or disease; Primary cancer: Right leg sarcoma; Prior surgery; Surgery date: 6+ months; Surgery type: Leroy hip; Additional info: Followup right leg sarcoma post treatment LABS AND CLINICAL REPORTS: Glucose: 119 mg/dl Treatment strategy for malignancy (PET staging): Restaging (PS) TECHNIQUE: Imaging protocol: Following at least four-hour fasting and following the injection of radiopharmaceutical, low dose CT images were obtained. Then, PET images were obtained. Attenuation corrected images were constructed using the CT scan. Fused images of PET and CT were reviewed. The standardized uptake values (SUV) reported below are maximum values within a region of interest, expressed in gm/ml. Exam includes the whole body. SUV normalization method: BodyWeight Radiopharmaceutical: 11.5 mCi F-18 FDG (Fluorodeoxyglucose), IV. Time of imaging post radiopharmaceutical administration: 48 minutes Injection site: left ac COMPARISON: PT PET WB melanoma SUBSEQ [id number] 08/10/2024 10:59 AM FINDINGS: Tubes, catheters and devices: Right chest wall chemo port with tip at the cavoatrial junction. Brain: Visualized brain has normal physiologic uptake. Pharynx: No abnormal uptake. Larynx: New increased FDG uptake along the left larynx without a discrete underlying correlating lesion, maximum SUV 8.4. Thyroid: Coarse left thyroid calcification and 9 mm right thyroid lobe nodule. No increased uptake. Lungs, pleura and trachea: Persistent ground-glass consolidation along the medial left upper lobe, more conspicuous when compared to the prior examination with persistent increased FDG uptake, maximum SUV 5.2, previously 4.2. Redemonstrated anterior left upper lobe pulmonary nodule with mildly decreased FDG uptake, maximum SUV 3.1, previously 4.5. This nodule also appears mildly decreased in size, now measuring 1.7 cm (previously 2.0 cm). There are otherwise new multiple bilateral FDG avid pulmonary nodules measuring up to 1.9 cm in the superior right lower lobe (maximum SUV 6.2, and 1.8 cm in the left lower lobe (maximum SUV 3.4). Additional subcentimeter 8 mm nodule in the medial right lower lobe has a maximum SUV of 3.8. Heart: Normal physiologic uptake. Mediastinal space: No abnormal uptake. Liver: No abnormal uptake. Gallbladder and biliary ducts: No abnormal uptake. Status post cholecystectomy. Pancreas: No abnormal uptake. Spleen: No abnormal uptake. Adrenal glands: No abnormal uptake. Bilateral nodular adrenal hyperplasia. Kidneys and ureters: Normal physiologic uptake. Multiple bilateral hyperdense renal lesions measuring up to 1.4 cm on the left. Some of the lesions have internal calcifications. Stomach and bowel: No abnormal uptake. Vasculature: The vasculature demonstrates diffuse marked atherosclerotic calcification. No aneurysm. Lymph nodes: No abnormal uptake. No lymphadenopathy in the head, neck, chest, abdomen, pelvis, and extremities. Skeleton: Bilateral total hip replacements. Right proximal lower extremity soft tissue mass contacts the right fever, although there is no increased osseous FDG uptake. Soft tissues: Large right inguinal/upper leg heterogeneous mass with peripheral increased FDG uptake. The mass is markedly enlarged compared to the prior PET-CT from 08/10/2024, now measuring up to 13.6 x 16.2 x 23.7 cm (previously 5.5 x 7.4 cm). The mass involves the distal right iliopsoas musculature, involves the right groin musculature and extends along the anterior quadriceps compartment to the mid femoral shaft. There is predominantly peripheral increased FDG uptake, maximum SUV 10.8 (previously 8.1). Otherwise brown fat uptake along the upper back and muscular uptake along the shoulder girdles and subscapular regions. Status post ventral hernia repair. Postsurgical and cellulitic changes along the right medial thigh and groin, non FDG avid. METRICS: Mediastinal blood pool: Mean SUV of 2.1 Liver uptake: Mean SUV of 2.3 PET/PET WB melanoma SUBSEQ [id number] IMPRESSION: 1. Redemonstrated large heterogeneous FDG avid right inguinal/proximal leg mass consistent with known sarcoma. The mass has markedly enlarged since the prior PET-CT from 08/10/2024. 2. New multiple bilateral FDG avid pulmonary nodules, consistent with progressed metastatic disease. 3. Previously noted ground-glass consolidation along the medial left upper lobe is persistent and has increased FDG uptake, favoring malignancy over infectious/inflammatory etiology. 4. New increased uptake in the left larynx without a discrete underlying lesion. This may be due to vocal cord use, although remains indeterminate. Consider close attention on follow-up imaging and/or ENT evaluation. 5. Multiple hyperdense bilateral renal lesions without significant increased FDG uptake. Findings may represent hemorrhagic/proteinaceous cysts but remain indeterminate. Close attention on interval follow-up is recommended, or further characterization with renal protocol CT or MRI.
[2025-03-14 09:37] LABS: Hematocrit 32.1 % (36-47); Hemoglobin 10.30 g/dL (11.27-16.99); Mean Corpuscular HGB Conc 32.1 g/dL (30-55); Mean Corpuscular Hemoglobin 29.7 pg (27-33); Mean Corpuscular Volume 92.5 fl (85-98); Nucleated Red Blood Cells % 0 %; Platelet Count 272 10^3/cmm (157-399); Red Blood Count 3.47 10^6/uL (3.85-5.65); White Blood Count 10.57 10^3/uL (3.29-11.43)
[2025-03-14 10:03] LABS: Alanine Aminotransferase < 5 U/L (0-33); Albumin Level 3.5 g/dL (3.5-5.2); Alkaline Phosphatase 137 U/L (35-105); Anion Gap 17.3 (5-19); Aspartate Amino Transferase 9 U/L (0-32); Blood Urea Nitrogen 20 mg/dL (8-23); Calcium 8.7 mg/dL (8.5-10.5); Carbon Dioxide 26 mmol/L (22-29); Chloride 91 mmol/L (98-107); Creatinine Clr Calc Pharmacy 54.0695; Globulin 3.4 g/dL (1.3-4.6); Glucose 145 mg/dL (65-115); Osmolality Calculated 275 mOsm/kg (285-295); Potassium 4.3 mmol/L (3.5-5.1); Sodium 130 mmol/L (136-145); Thyroid Stimulating Hormone 1.97 uIU/mL (0.27-4.20); Total Protein 6.9 g/dL (6.6-8.7)
[2025-03-14] MEDS: pembrolizumab 200 MG in sodium chloride 0.9% 250 ML 516 MG IV (12:45)
[2025-03-14 13:39] VITALS: BP 92/59; PULSE 88; RESP 17; TEMP 36.2; O2SAT 91
== END 2025-03-14 23:59 | disposition home or self-care (01) ==
PROVIDERS: Nurse Practitioner; PCP Family Medicine; Visit Provider Internal Medicine
DX: Z53.9 Procedure and treatment not carried out, unspecified reason; Z51.12 Encounter for antineoplastic immunotherapy; C49.21 Malignant neoplasm of connective and soft tissue of right lower limb, including hip; C78.02 Secondary malignant neoplasm of left lung; D50.9 Iron deficiency anemia, unspecified; Z85.828 Personal history of other malignant neoplasm of skin; Z87.891 Personal history of nicotine dependence; G89.3 Neoplasm related pain (acute) (chronic); I95.9 Hypotension, unspecified; Z96.0 Presence of urogenital implants
CPT/HCPCS: 78816; 80053; 84443; 85025; 96361; 96413; 99213; A9552; J7030; J7050; J9271

== ENCOUNTER → 2025-03-19 10:02 | Outpatient (BNVA) | payer OTHER, SELFPAY | PROVIDERS: PCP Family Medicine; Visit Provider Thoracic Surgery (Cardiothoracic Vascular Surgery) | DX: I96 Gangrene, not elsewhere classified (principal); L98.491 Non-pressure chronic ulcer of skin of other sites limited to breakdown of skin; L97.111 Non-pressure chronic ulcer of right thigh limited to breakdown of skin | CPT/HCPCS: 97597 ==

== ENCOUNTER → 2025-03-26 10:26 | Outpatient (BNVA) | payer OTHER, SELFPAY | PROVIDERS: PCP Family Medicine; Visit Provider Thoracic Surgery (Cardiothoracic Vascular Surgery) | DX: I96 Gangrene, not elsewhere classified (principal); L97.111 Non-pressure chronic ulcer of right thigh limited to breakdown of skin; L98.491 Non-pressure chronic ulcer of skin of other sites limited to breakdown of skin | CPT/HCPCS: 97597; A6212 ==

== ENCOUNTER → 2025-04-02 10:33 | Outpatient (BNVA) | payer OTHER, SELFPAY | PROVIDERS: PCP Family Medicine; Visit Provider Thoracic Surgery (Cardiothoracic Vascular Surgery) | DX: I96 Gangrene, not elsewhere classified (principal); L97.111 Non-pressure chronic ulcer of right thigh limited to breakdown of skin; L98.491 Non-pressure chronic ulcer of skin of other sites limited to breakdown of skin | CPT/HCPCS: 97597; A6212 ×2 ==

== ENCOUNTER → 2025-04-16 10:28 | Outpatient (BNVA) | payer OTHER, SELFPAY | PROVIDERS: PCP Family Medicine; Visit Provider Thoracic Surgery (Cardiothoracic Vascular Surgery) | DX: I96 Gangrene, not elsewhere classified (principal); L97.111 Non-pressure chronic ulcer of right thigh limited to breakdown of skin; L98.491 Non-pressure chronic ulcer of skin of other sites limited to breakdown of skin | CPT/HCPCS: 97597; A6212 ==

== ENCOUNTER 2025-04-25 14:42 | Oncology outpatient (recurring) (ONCR) | payer MEDICARE, SELFPAY ==
[2025-04-25 15:17] LABS: Hematocrit 27.8 % (36-47); Hemoglobin 8.30 g/dL (11.27-16.99); Mean Corpuscular HGB Conc 29.9 g/dL (30-55); Mean Corpuscular Hemoglobin 28.2 pg (27-33); Mean Corpuscular Volume 94.6 fl (85-98); Nucleated Red Blood Cells % 0 %; Platelet Count 324 10^3/cmm (157-399); Red Blood Count 2.94 10^6/uL (3.85-5.65); White Blood Count 6.21 10^3/uL (3.29-11.43)
[2025-04-25 15:42] LABS: Alanine Aminotransferase < 5 U/L (0-33); Albumin Level 3.2 g/dL (3.5-5.2); Alkaline Phosphatase 117 U/L (35-105); Anion Gap 14.2 (5-19); Aspartate Amino Transferase 9 U/L (0-32); Blood Urea Nitrogen 10 mg/dL (8-23); Calcium 8.5 mg/dL (8.5-10.5); Carbon Dioxide 30 mmol/L (22-29); Chloride 97 mmol/L (98-107); Globulin 3.2 g/dL (1.3-4.6); Glucose 95 mg/dL (65-115); Osmolality Calculated 283 mOsm/kg (285-295); Potassium 4.2 mmol/L (3.5-5.1); Sodium 137 mmol/L (136-145); Thyroid Stimulating Hormone 0.90 uIU/mL (0.27-4.20); Total Protein 6.4 g/dL (6.6-8.7)
== END 2025-05-15 23:59 | disposition home or self-care (01) ==
PROVIDERS: PCP Family Medicine; Visit Provider Internal Medicine
DX: C49.21 Malignant neoplasm of connective and soft tissue of right lower limb, including hip (principal); C78.02 Secondary malignant neoplasm of left lung; D50.9 Iron deficiency anemia, unspecified; Z95.828 Presence of other vascular implants and grafts; Z87.891 Personal history of nicotine dependence; Z97.8 Presence of other specified devices; Z79.899 Other long term (current) drug therapy; G89.3 Neoplasm related pain (acute) (chronic)
CPT/HCPCS: 36592; 80053; 84443; 85025; 99213

== ENCOUNTER → 2025-04-30 10:04 | Outpatient (BNVA) | payer MEDICARE, SELFPAY | PROVIDERS: PCP Family Medicine; Visit Provider Thoracic Surgery (Cardiothoracic Vascular Surgery) | DX: I96 Gangrene, not elsewhere classified (principal); L97.111 Non-pressure chronic ulcer of right thigh limited to breakdown of skin; L98.491 Non-pressure chronic ulcer of skin of other sites limited to breakdown of skin | CPT/HCPCS: 97597; A6219 ==

== ENCOUNTER 2025-05-14 10:48 | Emergency (ER) | payer MEDICARE, SELFPAY ==
--- NOTE | 2025-05-14 10:46 | XR_ITS ---
WS: [id number] Portable AP upright chest, 05/14/2025 Clinical Data: sob Comparison: Two-view chest, 04/24/2024 Findings: There is a 3.5 cm patchy opacity in the right lower lobe which could represent round pneumonia or atelectasis. There is minimal patchy opacity overlying the surface of the left diaphragm. No pneumothorax is seen. No masses are present. The aortic arch shows calcification and tortuosity. The heart is not enlarged. There is a right infusion catheter. Monitor leads are on the chest wall. XR/XR chest 1V portable [id number] Impression: 1. Round 3.5 cm patchy opacity in right lower lobe. 2. Minimal patchy opacity overlying the surface of the left diaphragm. 3. Atherosclerosis.
[2025-05-14 10:49] VITALS: BP 82/71; PULSE 126; RESP 20; TEMP 36.8; O2SAT 90
--- NOTE | 2025-05-14 10:56 | ECG_ITS ---
[facility] Test Date: 2025-05-14 Pat Name: Dennise Funes Department: Room: Gender: Female Sound Effects Manager: : [id number] Requested By: Lizeth Jameson Order Number: [id number] Evgeny MD: Leeroy Vega M.D. Measurements Intervals [place] Rate: 124 P: 72 NC: 141 QRS: 83 QRSD: 134 T: -13 QT: 329 QTc: 473 Interpretive Statements SINUS TACHYCARDIA LEFT BUNDLE BRANCH BLOCK Compared to ECG 04/25/2024 11:20:00 NO SIGNIFICANT CHANGE Electronically Signed On 05-16-2025 16:12:17 ANIMAL CARE PROVIDER by Leeroy Vega M.D. [email or web address] [id number]
--- NOTE | 2025-05-14 10:57 | CT_ITS ---
WS: [id number] CTA OF THE CHEST WITH PULMONARY EMBOLISM PROTOCOL TECHNIQUE: High-resolution contrast enhanced CTA of the chest with coronal and sagittal reformatted images with pulmonary embolism protocol. MIP images are also reviewed. CLINICAL INFORMATION: sob COMPARISON: 11/06/2024 DLP: 344.[address] scans at [facility] use at least one of these dose optimization techniques: automated exposure control; mA and/or kV adjustment per patient size (includes targeted exams where dose is matched to clinical indication); or iterative reconstruction. FINDINGS: Proximal main pulmonary arteries are normal. New filling defects in the RIGHT upper lobe segmental and subsegmental pulmonary arteries with expansile lobulated clot visualized especially in the RIGHT upper lung laterally. Subtotal consolidation of both lower lobes. Bilateral pulmonary metastasis. 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 This can result in life- threatening hemorrhage. Recommend vascular interventional consultation for coil embolization. Normal caliber thoracic aorta. Vascular calcification. Hilar lymphadenopathy similar to previous. Esophageal hiatal hernia with air-fluid level in the thoracic esophagus and achalasia in the thoracic esophagus Cholecystectomy. Bilateral adrenal nodules. CT/CT angio chest PE protcl [id number] IMPRESSION: 1. New filling defects in the RIGHT upper lobe segmental pulmonary arteries co mpatible with new pulmonary embolus. Expansile lobulated thrombus in the RIGHT upper lobe laterally. 2. No significant RIGHT heart strain. 3. Proximal main pulm arteries are normal. 4. Suspected pseudoaneurysm formation in the RIGHT lower lobe cavitating pulmo nary nodule. Suspected pseudoaneurysm measures 2.1 x 2.0 cm. Recommend vascular interventional consultation for possible coil embolization. These can be life- threatening if ruptured. 5. Subtotal consolidation in the lung bases. Notified Lizeth Jameson MD at 05/14/2025 12:33 PM.
[2025-05-14 10:59] LABS: ABG PCO2 44.9 mmHg (35-45); ABG PH Result 7.46 (7.35-7.45); Arterial Blood Gas Hematocrit 25.4 % (37-47); Blood Gas Allen Test Pos; Blood Gas LPM 3.0 %; Blood Gas Sample Site Radial, left; Blood Gas Sample Type Arterial; Carboxyhemoglobin 1.7 %THgb (0.4-20.1); HCO3 ABG 31.8 mmol/L (22-26); Methemoglobin 1.1 % (0.4-1.5); PO2 ABG 66.3 mmHg (80.0-100.0)
--- NOTE | 2025-05-14 11:10 | W.ED.WEAKNES ---
HPI - Weakness General: Chief complaint: Weakness Stated complaint: Low o2 Source: patient and EMS Mode of arrival: EMS Limitations: no limitations History of Present Illness: 70-year-old female who has a history of osteosarcoma states that over the last 2 to 3 days she has been having cough congestion along with generalized weakness. States she also had some increased shortness of breath as well. Patient does not wear oxygen at home she is requiring 3 L here. She denies any fevers or pain. Denies any vomiting diarrhea. Related Data Home Medications ?Medication ?Instructions ?Recorded ?Confirmed nitroglycerin 0.4 mg sublingual 0.4 mg sublingual Q5M PRN Chest 04/30/22 04/25/25 tablet (Nitrostat) Pain cyanocobalamin (vitamin B-12) 500 500 mcg PO DAILY 07/10/22 04/25/25 mcg tablet (Vitamin B-12) Previous Rx's ?Medication ?Instructions ?Recorded Compression Supporting Hose #1 ea 05/30/23 ondansetron 4 mg disintegrating 4 mg PO Q6H PRN nausea and 09/21/23 tablet vomiting #14 tabs albuterol sulfate 2.5 mg/3 mL 2.5 mg (3 mL) inhalation QID PRN 01/30/24 (0.083 %) solution for nebulization shortness of breath or wheezing #90 mL sennosides 8.6 mg-docusate sodium 1 tab-cap PO DAILY #30 tabs 02/23/24 50 mg tablet (Senna-Time S) albuterol sulfate 90 mcg/actuation See Rx Instructions .Route 07/16/24 aerosol inhaler .COMPLEX #8.5 grams metoprolol tartrate 25 mg tablet See Rx Instructions .Route 07/23/24 .COMPLEX #180 tabs metolazone 5 mg tablet 5 mg PO DAILY 20 days #20 tabs 08/07/24 escitalopram oxalate 20 mg tablet 20 mg PO DAILY #90 tabs 08/20/24 mupirocin calcium 2 % topical cream 1 applic topical BID 10 days #30 08/29/24 grams naloxone 4 mg/actuation nasal 4 mg intranasal Q2M PRN opioid 10/12/24 spray (Narcan) overdose #2 ea guaifenesin 1,200 mg tablet, 1,200 mg PO BID #60 tabs 11/22/24 extended release 12 hr (Mucinex) duloxetine 30 mg capsule,delayed 30 mg PO DAILY #90 caps 01/21/25 release prochlorperazine maleate 10 mg 10 mg PO Q4H PRN mild nausea #30 01/22/25 tablet (Compazine) tabs spironolactone 50 mg tablet 50 mg PO DAILY #30 tabs 01/25/25 (Aldactone) bumetanide 2 mg tablet 2 mg PO BID #120 tabs 02/18/25 gabapentin 600 mg tablet 600 mg PO TID #90 tabs 04/08/25 lubiprostone 24 mcg capsule See Rx Instructions .Route 04/08/25 .COMPLEX #60 caps potassium chloride 20 mEq 20 meq PO BID #60 tabs 04/08/25 tablet,extended release(part/cryst) (Klor-Con M) pantoprazole 40 mg tablet,delayed 80 mg (2 x 40 mg) PO DAILY #60 tabs 04/09/25 release tamsulosin 0.4 mg capsule 0.4 mg PO BID #60 caps 04/15/25 fentanyl 25 mcg/hr transdermal 1 patch transdermal Q72H 30 days 04/25/25 patch #10 ea methocarbamol 500 mg tablet 1,000 mg (2 x 500 mg) PO BID PRN 04/25/25 Spasms #120 tabs morphine 100 mg tablet,extended 100 mg PO BID pain 30 days #60 tabs 05/03/25 release morphine 15 mg tablet,extended 15 mg PO Q12H 30 days #60 tabs 05/03/25 release morphine 30 mg tablet,extended 30 mg PO Q12H 30 days #60 tabs 05/03/25 release oxycodone 20 mg tablet 40 mg (2 x 20 mg) PO Q6H 30 days 05/03/25 #240 tabs apixaban 5 mg tablet (Eliquis) See Rx Instructions .Route 05/13/25 .COMPLEX #60 tabs amoxicillin 500 mg tablet 500 mg PO TID #21 tabs 05/14/25 dexamethasone 2 mg tablet 2 mg PO BID #20 tabs 05/14/25 ipratropium 0.5 mg-albuterol 3 mg 3 ml inhalation Q4H PRN wheezing 05/14/25 (2.5 mg base)/3 mL nebulization #180 mL soln Allergies Allergy/AdvReac Type Severity Reaction Status Date / Time phenytoin (From Dilantin) Allergy Mild Rash Verified 04/25/25 15:31 sulfamethoxazole (From Allergy ALGY-Hives Verified 04/25/25 15:31 Bactrim) trimethoprim (From Bactrim) Allergy ALGY-Hives Verified 04/25/25 15:31 [facility] PFS: Medical History (Updated 05/14/25 @ 15:24 by Lizeth Jameson MD) Weakness 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 Constipation Hypotension Metabolic acidosis Opiate or related narcotic overdose Acute encephalopathy GI bleeding Vomiting REINA (acute kidney injury) Pneumonia Right inguinal hernia Abnormal stress test Chronic indwelling Stewart catheter Elevated LFTs Elevated troponin Fall Encephalopathy Urinary tract infection COVID-19 Viral upper respiratory tract infection with cough Lower extremity edema REINA (acute kidney injury) Oxygen dependent COPD (chronic obstructive pulmonary disease) Depression Heart failure with preserved ejection fraction YOLY on CPAP Anxiety and depression CAD (coronary artery disease) Complete rotator cuff tear of left shoulder Primary osteoarthritis, left shoulder Chronic wound infection of abdomen Weakness of left shoulder Cancer related pain Nausea and vomiting Pneumonia Essential hypertension Degenerative arthritis Chronic pain of right knee Chronic narcotic use History of nonmelanoma skin cancer Metabolic syndrome Sleep apnea GERD with apnea Conn syndrome GERD (gastroesophageal reflux disease) Hypertension Surgical History Port-A-Cath in place History of surgery on lower extremity (02/14/20) 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 Bean Family History Mother Family history of premature coronary artery disease Hypertension Brother Cancer Hypertension Sister Cancer Father Family history of premature coronary artery disease Hypertension Denies family history of Diabetes CAD (coronary artery disease) Clotting disorder Dementia Hyperlipidemia Psychiatric illness Chronic kidney disease (CKD) Suicide Anesthesia complication Bleeding disorder Lung disease Stroke Social History Smoking and tobacco/nicotine status: former use of tobacco/nicotine Quit status (tobacco/nicotine): has quit using Year quit tobacco: 2016 Former quit date comment: 2ppd x 36 years Second hand smoke exposure: No Alcohol intake: never Substance/Drug Use: never Adopted: No Caregiver/support person: Yes Lives independently: Yes Marital status: Single Current occupational status: employed 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 Had multiple discussions with patient and her family and they have decided to take her home on palliative care. Will place her on continuous oxygen instead of as needed oxygen. Medical Records I reviewed the patient's medical records. Lab Data I reviewed the patient's lab results. 05/14/25 11:07 05/14/25 11:07 Radiology Impressions Chest X-Ray 05/14/25 10:46 Impression: 1. Round 3.5 cm patchy opacity in right lower lobe. 2. Minimal patchy opacity overlying the surface of the left diaphragm. 3. Atherosclerosis. Chest CTA 05/14/25 10:57 IMPRESSION: 1. New filling defects in the RIGHT upper lobe segmental pulmonary arteries compatible with new pulmonary embolus. Expansile lobulated thrombus in the RIGHT upper lobe laterally. 2. No significant RIGHT heart strain. 3. Proximal main pulm arteries are normal. 4. Suspected pseudoaneurysm formation in the RIGHT lower lobe cavitating pulmonary nodule. Suspected pseudoaneurysm measures 2.1 x 2.0 cm. Recommend vascular interventional consultation for possible coil embolization. These can be life-threatening if ruptured. 5. Subtotal consolidation in the lung bases. Notified Lizeth Jameson MD at 05/14/2025 12:33 PM. Foot X-Ray 05/14/25 12:28 IMPRESSION: Possible small fracture along the base of the 1st proximal phalanx.Correlate clinically. Laboratory Results WBC 10.99 10^3/uL (3.29-11.43) 05/14/25 11:07 RBC 2.82 10^6/uL (3.85-5.65) L 05/14/25 11:07 Hgb 7.50 g/dL (11.27-16.99) L 05/14/25 11:07 Hct 26.0 % (36-47) L 05/14/25 11:07 MCV 92.2 fl (85-98) 05/14/25 11:07 MCH 26.6 pg (27-33) L 05/14/25 11:07 MCHC 28.8 g/dL (30-55) L 05/14/25 11:07 RDW 16.2 % (12.1-15.1) H 05/14/25 11:07 Plt Count 314 10^3/cmm (157-399) 05/14/25 11:07 MPV 9.4 fL (7.4-10.4) 05/14/25 11:07 Neut % (Auto) 87.2 % 05/14/25 11:07 Lymph % (Auto) 6.3 % 05/14/25 11:07 [place] % (Auto) 5.6 % 05/14/25 11:07 Eos % (Auto) 0.0 % 05/14/25 11:07 Baso % (Auto) 0.3 % 05/14/25 11:07 Neut # (Auto) 9.59 10^3/uL (1.8-7.7) H 05/14/25 11:07 Lymph # (Auto) 0.7 10^3/uL (0.8-4.8) L 05/14/25 11:07 [place] # (Auto) 0.6 10^3/uL (0.2-0.9) 05/14/25 11:07 Eos # (Auto) 0.0 10^3/uL (0.0-0.8) 05/14/25 11:07 Baso # (Auto) 0.0 10^3/uL (0.0-0.1) 05/14/25 11:07 Nucleated RBC % (auto) 0 % 05/14/25 11:07 Nucleated RBCs # 0.0 /100WBC 05/14/25 11:07 Specimen Type Arterial 05/14/25 10:48 Sample Site Radial, left 05/14/25 10:48 ABG pH 7.46 (7.35-7.45) H 05/14/25 10:48 ABG pCO2 44.9 mmHg (35-45) 05/14/25 10:48 ABG pO2 66.3 mmHg (80.0-100.0) L 05/14/25 10:48 ABG HCO3 31.8 mmol/L (22-26) H 05/14/25 10:48 ABG Base Excess 7.2 mmol/L (-2.0-2.0) H 05/14/25 10:48 Dexter Test Pos 05/14/25 10:48 Hematocrit 25.4 % (37-47) L 05/14/25 10:48 Hgb O2 Saturation 90.3 % (95-100) L 05/14/25 10:48 Carboxyhemoglobin 1.7 %THgb (0.4-20.1) 05/14/25 10:48 Methemoglobin 1.1 % (0.4-1.5) 05/14/25 10:48 Total Hemoglobin 8.3 g/dL (12-16) L 05/14/25 10:48 O2 Delivery Device Nc 05/14/25 10:48 O2 Liters/Min 3.0 % 05/14/25 10:48 Pile Driver Operator Barge Mounted ID [email or web address] 05/14/25 10:48 Sodium 136 mmol/L (136-145) 05/14/25 11:07 Potassium 3.6 mmol/L (3.5-5.1) 05/14/25 11:07 Chloride 93 mmol/L (98-107) L 05/14/25 11:07 Carbon Dioxide 29 mmol/L (22-29) 05/14/25 11:07 Anion Gap 17.6 (5-19) 05/14/25 11:07 BUN 12 mg/dL (8-23) 05/14/25 11:07 Creatinine 0.7 mg/dL (0.5-0.9) 05/14/25 11:07 GFR Calculation 83.0 mL/min (90-130) L 05/14/25 11:07 Glucose 152 mg/dL (65-115) H 05/14/25 11:07 Calculated Osmolality 285 mOsm/kg (285-295) 05/14/25 11:07 Calcium 8.5 mg/dL (8.5-10.5) 05/14/25 11:07 Total Bilirubin 0.6 mg/dL (0.15-1.2) 05/14/25 11:07 AST 12 U/L (0-32) 05/14/25 11:07 ALT < 5 U/L (0-33) 05/14/25 11:07 Alkaline Phosphatase 119 U/L (35-105) H 05/14/25 11:07 NT-Pro-B Natriuret Pep 1292 pg/mL (0-125) H 05/14/25 11:07 Total Protein 6.2 g/dL (6.6-8.7) L 05/14/25 11:07 Albumin 3.1 g/dL (3.5-5.2) L 05/14/25 11:07 Globulin 3.1 g/dL (1.3-4.6) 05/14/25 11:07 Influenza A (PCR) Negative (Negative) 05/14/25 11:06 Influenza Type B (PCR) Negative (Negative) 05/14/25 11:06 RSV (PCR) Negative (Negative) 05/14/25 11:06 SARS-CoV-2 (PCR) Negative (Negative) 05/14/25 11:06 All radiology interpretation(s) finalized by discharge Discharge Plan Discharge Patient Disposition: Home Clinical Impression: Osteosarcoma, Aneurysm of pulmonary artery Condition: Stable Prescriptions: New ipratropium-albuterol 0.5 mg-3 mg(2.5 mg base)/3 mL solution for nebulization 3 ml inhalation Q4H PRN (Reason: wheezing) Qty: 180 0RF Rx Instructions: until breathing returns to target peak flow/parameters dexamethasone 2 mg tablet 2 mg PO BID Qty: 20 0RF No Action spironolactone [Aldactone] 50 mg tablet 50 mg PO DAILY Qty: 30 6RF fentanyl 25 mcg/hr patch 72 hour 1 patch transdermal Q72H 30 Days Qty: 10 0RF methocarbamol 500 mg tablet 1,000 mg PO BID PRN (Reason: Spasms) Qty: 120 1RF albuterol sulfate 2.5 mg /3 mL (0.083 %) solution for nebulization 2.5 mg inhalation QID PRN (Reason: shortness of breath or wheezing) Qty: 90 2RF metolazone 5 mg tablet 5 mg PO DAILY 20 Days Qty: 20 3RF Rx Instructions: take x 5 days, then take as needed when weigh gain is >5Ibs naloxone [Narcan] 4 mg/actuation spray,non-aerosol 4 mg intranasal Q2M PRN (Reason: opioid overdose) Qty: 2 0RF Rx Instructions: spray 1 dose into ONE nostril; alternate nostrils w each dose until help arrives guaifenesin [Mucinex] 1,200 mg tablet extended release 12hr 1,200 mg PO BID Qty: 60 6RF Rx Instructions: may use generic (DME) Compression Supporting Hose See Rx Instructions .Route .MEDSUPPLY Qty: 1 0RF Rx Instructions: As directed albuterol sulfate 90 mcg/actuation HFA aerosol inhaler See Rx Instructions .ROUTE .COMPLEX Qty: 8.5 1RF Dose Instruction: INHALE 1 PUFF FOUR TIMES DAILY NEEDED FOR SHORTNESS OF BREATH or wheezing Rx Instructions: INHALE 1 PUFF FOUR TIMES DAILY NEEDED FOR SHORTNESS OF BREATH or wheezing metoprolol tartrate 25 mg tablet See Rx Instructions .ROUTE .COMPLEX Qty: 180 3RF Dose Instruction: TAKE 1 TABLET BY MOUTH TWICE DAILY Rx Instructions: TAKE 1 TABLET BY MOUTH TWICE DAILY escitalopram oxalate 20 mg tablet 20 mg PO DAILY Qty: 90 1RF mupirocin calcium 2 % cream 1 applic topical BID 10 Days Qty: 30 0RF duloxetine 30 mg capsule,delayed release(DR/EC) 30 mg PO DAILY Qty: 90 1RF prochlorperazine maleate [Compazine] 10 mg tablet 10 mg PO Q4H PRN (Reason: mild nausea) Qty: 30 3RF bumetanide 2 mg tablet 2 mg PO BID Qty: 120 1RF gabapentin 600 mg tablet 600 mg PO TID Qty: 90 0RF lubiprostone 24 mcg capsule See Rx Instructions .ROUTE .COMPLEX Qty: 60 0RF Dose Instruction: take 1 capsule BY MOUTH TWICE DAILY Rx Instructions: take 1 capsule BY MOUTH TWICE DAILY potassium chloride [Klor-Con M20] 20 mEq tablet,ER particles/crystals 20 meq PO BID Qty: 60 0RF pantoprazole 40 mg tablet,delayed release (DR/EC) 80 mg PO DAILY Qty: 60 0RF tamsulosin 0.4 mg capsule 0.4 mg PO BID Qty: 60 3RF morphine 15 mg tablet extended release 15 mg PO Q12H 30 Days Qty: 60 0RF Rx Instructions: fill on time morphine 30 mg tablet extended release 30 mg PO Q12H 30 Days Qty: 60 0RF Rx Instructions: fill on time morphine 100 mg tablet extended release 100 mg PO BID 30 Days Qty: 60 0RF Rx Instructions: fill on time oxycodone 20 mg tablet 40 mg PO Q6H 30 Days Qty: 240 0RF Eliquis 5 mg tablet See Rx Instructions .ROUTE .COMPLEX Qty: 60 2RF Dose Instruction: TAKE 1 TABLET BY MOUTH TWICE DAILY Rx Instructions: TAKE 1 TABLET BY MOUTH TWICE DAILY amoxicillin 500 mg tablet 500 mg PO TID Qty: 21 0RF nitroglycerin [Nitrostat] 0.4 mg Tablet, Sublingual 0.4 mg SUBLINGUAL Q5M PRN (Reason: Chest Pain) Rx Instructions: do not exceed 3 doses per episode cyanocobalamin (vitamin B-12) [Vitamin B-12] 500 mcg Tablet 500 mcg PO DAILY ondansetron 4 mg tablet,disintegrating 4 mg PO Q6H PRN (Reason: nausea and vomiting) Qty: 14 0RF sennosides-docusate sodium [Senna-Time S] 8.6-50 mg tablet 1 tab-cap PO DAILY Qty: 30 0RF Discharge Orders: Discharge ED (Routine); Ordered 05/14/25 Ordered By: Garth Colin Other Ambulatory Orders: DME: Oxygen (Order) Location: None Selected Ordered By: Garth Colin DME: Oxygen (Order) Location: None Selected Ordered By: Garth Colin Referrals: Cyril Ramsey MD [Primary Care Provider, [facility]] Discharge Diet: Advance as tolerated Discharge Activity: Resume usual activity Patient Instructions: Lung Cancer (DC) Print Language: Greek Coding Level of Care Code ED [employer] Plant Dispatcher for Prachi Aguila
--- OUTSIDE RECORDS SUMMARY | 2025-05-14 11:15 | XMS_ITS | Patient Health Record ---
Author Organization [facility] Address [address] [place] [address] Care Team Providers Care District Loss Prevention Manager Name Role Phone Roxy DANIELLE, Cyril Primary Care Provider Unavailab KYRA Gabriel Unavailable [phone] Allergies Allergen (clinical drug ingredient) Drug/Non Drug Allergy documented on EMR Reaction Allergy Type Onset Date Status phenytoin Dilantin allergy Drug Allergy Active Results Component Value Reference Range Flag Notes Urinalysis, Routine Reviewed date:05/31/2024 11:52:15 AM Interpretation: Performing Lab: Notes/Report: Urine-Color yellow Appearance clear Glucose - Bilirubin - Ketones - Specific [place] 1.015 Occult Blood - pH 6.0 Urine Protein - Urobilinogen,Semi-Qn - Nitrite, Urine - WBC Esterase 2+ Gx - Recurrent Persistent Co mplicated UTI Reviewed date:06/04/2024 08:10:55 AM Interpretation: Performing Lab:, [id number] Notes/Report: PatientName: : Gender: PatientRelation: PatientAddress: , , , InsuranceName: InsuranceCode: Test Result: Guidance 7.0, Voided Urine, UTI Surgical, Test Result: PATHOGENIC DNA DETECTED amp; ESBL Positive*#A*F UTIAbnormalFlag: Guidance 7.0, Voided Urine, UTI Surgical, UTIAbnormalFlag: A A Reason For Referral Reason [facility] Diagnosis 1 Urinary retention (R 33.9) Diagnosis 2 Chronic suprapubic c atheter (Z93.59) Diagnosis 3 Recurrent UTI (N39.0 ) Referral Organization [facility] Referring Provider First Name KYRA Referring Provider Last Name SHIRIN Referring Provider [facility] Referred Provider Specialty Urology Referral Priority Routine Medications Medication SIG (Take, Route, Frequency, Duration) Notes Start Date End Date Status Meloxicam 15 MG Tablet 1 tablet Orally O nce a day 11/14/2023 Active Torsemide 40 MG Tablet 1 tablet Orally O nce a day 11/14/2023 Active Macrobid 100 MG Capsule 1 capsule with f ood Orally every 12 hrs Not-Taking Morphine Sulfate ER 100 MG Tablet Extended Release 1 tablet Orally every 12 hrs 11/14/2023 Active Methocarbamol 500 MG Tablet 1 tab Orally three times a day 11/14/2023 Active Tamsulosin HCl 0.4 MG Capsule 1 capsule Orally twice a day 11/14/2023 Active Lubiprostone 24 MCG Capsule 1 capsule with food and water Orally Twice a day 11/14/2023 Active Docusate Sodium 100 MG Capsule 2 capsules as needed Orally twice a day 11/14/2023 Active Aspirin 81 MG Tablet Delayed Release 1 tablet Orally Once a day 11/14/2023 Active Acetaminophen ER 650 MG Tablet Extended Release 2 tablets as needed Orally every 8 hrs Active Vitamin B12 Active Gabapentin 600 MG Tablet 1 tablet Orally twice a day 11/14/2023 Active Mucinex 600 MG Tablet Extended Release 12 Hour 2 tablets as needed Orally every 12 hrs 11/14/2023 Active Omeprazole 40 MG Capsule Delayed Release 1 capsule 30 minutes before morning meal Orally Once a day 11/14/2023 Active Tibsovo 250 MG Tablet 2 tablet Orally On ce a day 11/14/2023 Active Social History Tobacco Use: Social History Observation Description Date Details (start date - stop date) Former Smoker NA - NA Social History Tobacco Use: Social Info Question Answer Notes Tobacco Control (Standard) Tobacco use: Former smoker How long has it been since you last smoked? 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 Problem COPD - Chronic obstructive pulmonary disease (50527108) Chronic obstructive pulmonary disease, unspecified COPD type (J44.9) Active confirmed Problem Change of urinary catheter bag (procedure) (180817138) Catheter (urine) change required (Z46.6) Active confirmed Problem Renal cyst (293716077) Bilateral renal cysts (N28.1) Active confirmed Problem Recurrent urinary tract infection (295747692) Recurrent UTI (N39.0) Active confirmed Problem Suprapubic urinary catheter in situ (finding) (606108082) Chronic suprapubic catheter (Z93.59) Active confirmed Problem Urinary retention (169367768) Urinary retention (R33.9) Active confirmed Problem Presence of indwelling Stewart catheter (Z97.8) Active confirmed Vital Signs Heart Rate 78 /min 05/31/2024 Height-cm 160.02 cm 05/31/2024 Blood pressure diastolic 66 mm Hg 05/31/2024 Weight-kg 96.62 kg 05/31/2024 Height 63 in 05/31/2024 Blood pressure systolic 144 mm Hg 05/31/2024 Weight 213 lbs 05/31/2024 BMI 37.73 kg/m2 05/31/2024 Procedures Procedure Date Ordered Date Performed Result Body Sit e SP Tube Change 05/31/2024 05/31/2024 N/A Encounters Encounter Location Date Provider Diagnosis [facility], [facility] [address] [facility] [address] [place] [address] 05/31/2024 KYRA CARPIO Urinary retention R33.9 ; Low back pain M54.50 ; Leukocytes in urine R82.998 ; Recurrent UTI N39.0 and Encounter for attention to cystostomy Z43.5 [employer] [facility], [facility] [address] [place] [address] 06/04/2024 KYRA CARPIO Assessments Encounter Date Diagnosis (ICD Code) Assessment Notes Treatment Notes Treatment Clinical Notes Section Notes 05/31/2024 Low back pain (ICD-10 - M54.50) 05/31/2024 Urinary retention (ICD-10 - R33.9) 05/31/2024 Leukocytes in urine (ICD-10 - R82.998) 05/31/2024 Recurrent UTI (ICD-10 - N39.0) 05/31/2024 Encounter for attention to cystostomy (ICD-10 - Z43.5) 05/31/2024 Other SP tube changed today. Her home health will be changing SP tube from here on. Patient reports symptoms of UTI. Rx sent in, urine sent for PCR. Also, her insurance no longer covers our clinic, so she is requesting referral to [facility] in [place]. Plan Of Treatment Pending Test Test Name Order Date Chest X-ray PA and lateral 03251 [id number] CULTURE, URINE, ROUTINE (395) 04/24/2024 CULTURE, URINE, ROUTINE (395) 04/24/2024 Voiding Trial 11/14/2023 Catheter Insertion-Routine 12/12/2023 Basic Metabolic Panel 04/25/2024 Basic Metabolic Panel 04/24/2024 CBC w/ Auto Diff 04/24/2024 Electrocardiogram, 12 Lead Tracing-[id number] 04/24/2024 Medical (General) History Medical History History [...] Date(Month/Year) above covid 02/2024 6 months in [facility] sarcoma alia matty 01/2023
--- OUTSIDE RECORDS SUMMARY | 2025-05-14 11:15 | XMS_ITS | Encounter Summary ---
Author Organization [facility] Address [address] [place] [address] Care Team Providers Care Assistant Dean Name Role Phone Ok Sanchez MD Primary Care Provider Reason for Referral * Auth/Cert (Routine) Specialty Diagnoses / Procedures Referred By Contac t Referred To Contact Cardiology Diagnoses Encounter for loop recorder at end of battery life Procedures CL EVENT RECORDER REMOVAL Anastasia Lee MD Phone: tel: fax: [facility] Cardiac Mexican Food Maker Hand [address] [place] [address] Phone: tel: fax: Referral ID Status Reason Start Date Expiration Date Visits Re quested Visits Authorized [id number] 03/22/2018 2019 1 1 TRAINER Encounter Details Date Type Department Care Team (Late st Contact Info) Description 03/22/2018 Ancillary Orders [facility] Cardiology- [place] [address] [place] [address] Anastasia Lee MD [address] [facility] [facility] [address] [place] [address] Encounter for loop recorder at [...] on file Legal Sex Female 2:53 AM CREW TRAINER Gender Identity Not on file Sexual Orientation Not on file Occupation Industry Job Start Date Job End Date Not on file Not on file Not on file Not on file documented as of this encounter Plan of Treatment Not on file documented as of this encounter Results * CL EVENT RECORDER REMOVAL (04/27/2018 10:35 AM CREW TRAINER) 04/27/2018 10:2 3 AM CREW TRAINER Narrative Darron Veliz - 10/31/2020 11:51 AM CDT Order information only. Exam was auto-finalized as part of the [employer] Single Instance conversion project. Procedure Note Darron Veliz - 10/31/2020 Order information only. Exam was auto-finalized as part of the [employer] Single Instance conversion project. us Anastasia Lee MD FLUOROSCOPY ORDERABLES Final Result documented in this encounter Visit Diagnoses Diagnosis Encounter for loop recorder at end of battery life Encounter for loop recorder at end of battery life documented in this encounter Care Teams Assistant Dean Relationship Specialty Start Date End Date Ok Sanchez MD PCP - General Internal Medicine 10/01/12 documented as of this encounter
--- OUTSIDE RECORDS SUMMARY | 2025-05-14 11:15 | XMS_ITS | Clinical Summary ---
Author Organization [facility] Address [address] [place] [address] Care Team Providers Care Civil Engineer'S Aide Name Role Phone Ok Sanchez MD Primary Care Provider Allergies Active Allergy Reactions Criticality Noted Date Comments Penicillins Rash Low 09/30/2012 Phenytoin Sodium Extended Rash Low 10/27/2013 Medications CHLORDIAZEPOXIDE /CLIDINIUM BR (LIBRAX, WITH CLIDINIUM, ORAL) Take by mouth. 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 LORazepam (ATIVAN) 1 mg tablet Take [...] on file Legal Sex Female 2:53 AM FOREPART ROUNDER Gender Identity Not on file Sexual Orientation Not on file Occupation Industry Job Start Date Job End Date Not on file Not on file Not on file Not on file Last Filed Vital Signs Vital Sign Reading Time Taken Comments Blood Pressure 159/68 04/27/2018 10:55 AM FOREPART ROUNDER Pulse 95 04/27/2018 10:55 AM FOREPART ROUNDER Temperature 37.5 C (99.5 F) 04/27/2018 7:05 AM FOREPART ROUNDER Respiratory Rate 18 04/27/2018 10:55 AM FOREPART ROUNDER Oxygen Saturation 98% 04/27/2018 10:55 AM FOREPART ROUNDER Inhaled Oxygen Concentration - - Weight 85 kg (187 lb 6.3 oz) 04/27/2018 7:05 AM FOREPART ROUNDER Height 162.6 cm (5' 4 ) 04/27/2018 7:05 AM FOREPART ROUNDER Body Mass Index 32.17 04/27/2018 7:05 AM FOREPART ROUNDER Plan of Treatment Health Maintenance Due Date Last Done Comments Pre-Diabetes and Diabetes Screening 1955 DTAP/TDAP/TD VACCINES (1 - Tdap) 1975 BREAST CANCER SCREENING 1996 FIT-DNA Q 3 years 2001 FIT/FOBT Q 1 year 2001 Flex Sig/CT Colonography Q 5 years 2001 RSV VACCINE (60+ or ) (1 - Risk 50-74 years 1-dose series) 2006 ZOSTER VACCINE (1 of 2) 2006 COLORECTAL SCREENING 11/06/2018 11/06/2013, 11/01/19 14 Colorectal Cancer Screening 11/06/2018 OSTEOPOROSIS SCREENING 2021 PNEUMOCOCCAL VACCINE 50+ YEA RS (2 of 2 - PCV) 04/23/2021 04/23/2020, 01/21/2020 INFLUENZA VACCINE (#1) 2024 03/01/2018, 2013 Insurance GENERIC PAYOR Advance Directives For more information, please contact: [phone] * Full Code (Latest Code Status on [...] 10:33 PM 10/31/2013 1:56 PM Care Teams Civil Engineer'S Aide Relationship Specialty Start Date End Date Ok Sanchez MD PCP - General Internal Medicine 10/01/12
--- OUTSIDE RECORDS SUMMARY | 2025-05-14 11:15 | XMS_ITS | Encounter Summary ---
Author Organization [facility] Address [address] [place] [address] Care Team Providers Care Magnetic Resonance Technologist Name Role Phone Ok Sanchez MD Primary Care Provider Encounter Details Date Type Department Care Team (Latest Contact Info) Description 04/17/2001 Outpatient Historical [facility] ChristianaRoman MD [address] [address] DIS OF GALLBLADDER NEC (Primary Dx) Social History Tobacco Use Types Packs/Day Years Used Date Smoking Tobacco: Never Assessed Comments Unknown Sex and Gender Information Value Date Recorded Sex Assigned at Not on file 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
--- OUTSIDE RECORDS SUMMARY | 2025-05-14 11:15 | XMS_ITS ---
Author Organization [facility] Address [address] Low: Epic Prelude ADT [place] [address] Care Team Providers Care Shank Cutter Name Role Phone Unavailable Primary Care Provider [...]
--- OUTSIDE RECORDS SUMMARY | 2025-05-14 11:15 | XMS_ITS | Encounter Summary ---
Author Organization [facility] Address [address] [place] [address] Care Team Providers Care Application Architect Manager Name Role Phone Ok Sanchez MD Primary Care Provider Reason for Referral * Outpatient Services (Routine) - Closed Specialty Diagnoses / Procedures Referred By Contac t Referred To Contact Diagnoses Syncope, unspecified Procedures CL STUDY TILT Anastasia Lee MD Phone: tel: fax: Referral ID Status Reason Start Date Expiration Date Visits Re quested Visits Authorized [id number] Closed 12/10/2014 01/10/2016 1 1 Encounter Details Date Type Department Care Team (Latest Contact Info) Description 12/10/2014 Ancillary Orders [facility] Elect[facility] [address] 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 SCL/tjb - transcribed in [facility] Anastasia Lee MD ELECTROPHYSIOLOGY ORDERABLES Final Result [facility] documented in this encounter Visit Diagnoses Diagnosis Syncope, unspecified- Primary Syncope, unspecified documented in this encounter Care Teams Application Architect Manager Relationship Specialty Start Date End Date Ok Sanchez MD PCP - General Internal Medicine 10/01/12 documented as of this encounter
--- OUTSIDE RECORDS SUMMARY | 2025-05-14 11:15 | XMS_ITS | Clinical Summary ---
Author Organization [facility] Address [address] Low: Epic Prelude ADT [place] [address] Care Team Providers Care Forms Analysis Manager Name Role Phone Unavailable Primary Care [...] Tablet 3 Active naloxone (NARCAN) 4 mg/spray [place], Non-Aerosol EMERGENCY USE ONLY: Administer 1 spray [...] Encounters Date Type Department Care Team Description 04/09/2025 External Device Data [facility] ABSTRACTION Provider, Abstract 04/02/2025 External Device Data [facility] ABSTRACTION Provider, Abstract 03/06/2025 External Device Data [facility] ABSTRACTION Provider, Abstract from Last 3 Months Immunizations Immunization Administration Dates Next Due Influenza Seasonal Unspecified Formulation IM Family History Medical History Relation Name Comments Colon Cancer Neg Hx Social History Tobacco Use Types Packs/Day Years Used Date Smoking Tobacco: Former Cigarettes 1.5 Q uit: 07/14/2016 Smokeless Tobacco: Never Tobacco [...] on file 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 Gender Identity Not on file Sexual Orientation [...] VACCINE (1 of 2) 2006 COLORECTAL SCREENING 10/31/2018 10/31/2013 Colorectal Cancer Screening 10/31/2018 OSTEOPOROSIS SCREENING 2021 PNEUMOCOCCAL VACCINE 50+ YEA RS (2 of 2 - PCV) 04/23/2021 04/23/2020, 01/21/2020 INFLUENZA VACCINE (#1) 2024 , 03/01/2018, 02/13/2014 COVID-19 Vaccine (3 - season) 01/14/202512/2020, 12/11/2020 Medical Devices Implanted Type Area Standards Analyst Device Identifier Shelf Expiration Date Model / Serial / Lot Port-06/30/2022 Implanted:Qty: 1 on 06/30/2022 Port Left: Chest [employer] [id number] / [id number] / [id number] Description:Implanted by [facility] 06/30/2022. [place] [address] [place] [address] DUAL COMPLETE HMO [facility] [id number] Advance Directives For more information, please contact: [phone] * Full Code (Latest Code Status on File) Date Activated Date Inactivated Comments 03/19/2023 6:39 PM 03/29/2023 3:54 PM * Full Code Date Activated Date Inactivated Comments 02/28/2023 1:59 PM 03/07/2023 11:34 AM * Default Full Code - Needs Discussion Date Activated Date Inactivated Comments 02/24/2023 10:37 AM 02/28/2023 1:59 PM
--- OUTSIDE RECORDS SUMMARY | 2025-05-14 11:15 | XMS_ITS | Clinical Summary ---
Author Organization [facility] Address [address] [place] [address] Care Team Providers Care Internal Combustion Engine Inspector Name Role Phone Unavailable Primary Care Provider Unavailabl e Allergies Active Allergy Reactions Criticality Noted Date Comments Penicillins Rash Low 09/30/2012 Phenytoin Sodium Extended Rash Medium 10/27/2013 Medications acetaminophen (TYLENOL) 500 MG tablet Take 1 Tablet (500 mg) by mouth every 6 hours as needed for Pain. 03/04/20 23 Active albuterol sulfate 90 mcg/actuation aepb Inhale 2 puffs every 6 (six) hours as needed for wheezing or shortness of breath Active aspirin 81 MG tablet Take 1 tablet (81 mg total) by mouth 2 (two) times a day 02/24/20 23 Active atorvastatin (LIPITOR) 40 MG tablet Take 1 tablet (40 mg total) by mouth nightly 05/27/19 23 Active bisacodyL (DULCOLAX) 10 mg suppository Insert 1 suppository (10 mg total) into the rectum daily as needed for constipation Active buPROPion (WELLBUTRIN XL) 300 MG 24 hr tablet Take 300 mg by mouth daily credit specialist. Active celecoxib (CeleBREX) 100 MG capsule Take 100 mg by mouth 2 times daily. Active cyanocobalamin 100 MCG tablet Take 2.5 tablets (250 mcg total) by mouth every morning Active docusate sodium (COLACE) 100 MG capsule Take 1 capsule (100 mg total) by mouth 2 (two) times a day as needed Active DULoxetine (CYMBALTA) 60 MG capsule Take 60 mg by mouth daily. 04/03/20 18 Active escitalopram oxalate (LEXAPRO) 20 MG tablet Take 1 tablet (20 mg total) by mouth every morning 06/21/19 23 Active fluticasone furoate-vilanteroL 100-25 mcg/dose dsdv Inhale 1 puff credit specialist before breakfast Rinse mouth with water after use. Do not swallow. Active gabapentin (NEURONTIN) 600 MG tablet Take 1 tablet (600 mg total) by mouth 2 (two) times a day 06/20/19 23 Active guaiFENesin 600 mg Ta12 Take 2 tablets (1,200 mg total) by mouth 2 (two) times a day Active HYDROmorphone 0.5 mg/0.5 mL syrg Infuse 0.5 mL (0.5 mg total) into a venous catheter 2 (two) times a day as needed Active hydrOXYzine (VISTARIL) 25 MG capsule Take 1 capsule (25 mg total) by mouth every 8 (eight) hours as needed for anxiety or itching 01/17/20 20 Active ivosidenib 250 mg tab Take 2 tablets (500 mg total) by mouth daily Take at the same time each day. Avoid taking with a high-fat meal. Swallow tablet whole, do not split, crush, or chew. Do not retake if vomiting occurs. Make up missed doses if within 12 hours, do not take 2 doses within 12 hours. 08/12/19 23 Active lidocaine HCL-menthoL 4-1 % ptmd Apply 1 patch topically every morning Active lisinopriL (ZESTRIL) 10 MG tablet Take 1 Tab (10 mg) by mouth daily. 11/22/19 15 Active lorazepam (ATIVAN) 1 MG tablet Take 1 mg by mouth every 4 hours as needed for Anxiety. Active aluminum-magnesium hydroxide-simethic one (MAALOX) 200-200-20 mg/5 mL susp Take 10 mL by mouth every 6 hours as needed for Dyspepsia. 11/12/19 15 Active magnesium hydroxide 2,400 mg/10 mL susp Take 30 mL by mouth daily as needed Active methocarbamoL (ROBAXIN) 500 MG tablet Take 2 tablets (1,000 mg total) by mouth 3 (three) times a day as needed for muscle spasms 02/24/20 23 Active naloxone 0.4 mg/mL syrg Inject 0.1 mg as directed as needed Active nicotine (NICODERM CQ) 7 mg/24 hr Apply 1 Patch to skin as directed daily. 11/12/19 15 Active nitroglycerin (NITROSTAT) 0.[address] 1 tablet (0.4 mg total) under the tongue every 5 (five) minutes as needed for chest pain 04/29/20 22 Active ondansetron (ZOFRAN-ODT) 4 MG disintegrating tablet Take 1 tablet (4 mg total) by mouth every 6 (six) hours as needed for nausea or vomiting 02/24/20 23 Active omeprazole (PriLOSEC) 20 MG capsule Take 1 Cap (20 mg) by mouth 2 times daily. 11/12/19 15 Active oxyCODONE (ROXICODONE) 20 MG tab Take 1 Tablet (20 mg) by mouth every 4 hours as needed for Pain, Severe or Pain, Break-Through. Max Daily Amount: 120 mg 03/04/20 23 Active pantoprazole (PROTONIX) 40 MG tablet Take 40 mg by mouth 2 times daily. 04/27/20 18 Active polyethylene glycol (GLYCOLAX) 17 gram packet Take 1 packet (17 g total) by mouth every morning Active Saccharomyces boulardii (FLORASTOR) 250 mg capsule Take 1 capsule (250 mg total) by mouth 2 (two) times a day Active sodium hypochlorite 0.125 % soln Apply topically daily 02/24/20 23 Active spironolactone (ALDACTONE) 50 MG tablet Take 50 mg by mouth daily. Active tamsulosin (FLOMAX) 0.4 mg cap Take 1 capsule (0.4 mg total) by mouth daily with dinner 02/24/20 Active torsemide (DEMADEX) 20 MG tablet Take 2 tablets (40 mg total) by mouth every morning 11/23/19 23 Active Social History Tobacco Use Types Packs/Day Years Used Date Smoking Tobacco: Never Assessed Comments Unknown Sex and Gender Information Value Date Recorded Sex Assigned at Not on file Legal Sex Female 12:37 PM EST Gender Identity Not on file Sexual Orientation Not on file Last Filed Vital Signs Vital Sign Reading Time Taken Comments Blood Pressure - - Pulse - - Temperature - - Respiratory Rate - - Oxygen Saturation - - Inhaled Oxygen Concentration - - Weight 88.9 kg (196 lb) 03/29/2023 7:00 AM PST Height 160 cm (5' 3 ) 03/29/2023 7:00 AM PST Body Mass Index 34.72 03/29/2023 7:00 AM PST Plan of Treatment Not on file Medical Devices Not on file Insurance [employer] [address]
--- OUTSIDE RECORDS SUMMARY | 2025-05-14 11:15 | XMS_ITS | Encounter Summary ---
[facility] Address [address] [place] [address] Care Team Providers Care Machine Setter Supervisor Name Role Phone Ok Sanchez MD Primary Care Provider Encounter Details Date Type Department Care Team (Late st Contact Info) Description 10/17/2006 [facility] [address] [place] [address] Precordial Pain (Primary Dx) Social History Tobacco Use Types Packs/Day Years Used Date Smoking Tobacco: Never Assessed Comments Unknown Sex and Gender Information Value Date Recorded Sex Assigned at Not on file Legal Sex Female 2:53 AM LAP [employer]AY[employer] Gender Identity Not on file Sexual Orientation [...] CHEMISTRY ORDERABLES Edite d Performing Organization Address [facility] Phone Number INTERFACE SYSTEM Refer to [...] MD CHEMISTRY ORDERABLES Edited Performing Organization Address [facility] Phone Number INTERFACE SYSTEM Refer to clinic/hospital department * TSH (10/17/2006 9:48 PM CDT) TSH 2.910 0.350 - 5.500 uIU/ml INTERFACE SYSTEM Comment: As of 04 at 3:00 p.m. [facility] has changed the methodology for TSH, and with this change the reference range has changed from 0.49-4.67 to 0.35-5.5 uIU/ml. 10/17/2006 9:48 PM CDT Melina Angel MD CHEMISTRY ORDERABLES Edited Performing Organization Address [facility] Phone Number INTERFACE SYSTEM Refer to clinic/hospital [...] Date Signed: 10/18/06 JAW Melina Angel MD OR ORDERABLES Final Result * XR CHEST PA [...] HEMATOLOGY ORDERABLES Edit ed Performing Organization Address [facility] de Phone Number INTERFACE SYSTEM [...] HEMATOLOGY ORDERABLES Edit ed Performing Organization Address [facility] de Phone Number INTERFACE SYSTEM Refer to [...] Goal INR 3.0; range 2.5 - 3.5 POST-WV Goal INR 2.5; range 2.0 - 3.0 or Goal 3.0; range 2.5 - 3.5 Atrial Fibrillation Goal INR 2.5; range 2.0 - 3.0 Ischemic Stroke Goal INR 2.5; range 2.0 - 3.0 For additional information see Guidelines for Anticoagulation available from the pharmacy [facility]. 10/17/2006 2:53 PM CDT Rik Zabala DO HEMATOLOGY ORDERABLES Edit ed Performing Organization Address [facility] Phone Number INTERFACE SYSTEM Refer to clinic/hospital [...] CHEMISTRY ORDERABLES Edite d Performing Organization Address [facility] Phone Number INTERFACE SYSTEM Refer to [...] CHEMISTRY ORDERABLES Edite d Performing Organization Address [facility] Phone Number INTERFACE SYSTEM Refer to clinic/hospital department documented in this encounter Visit Diagnoses Diagnosis Precordial pain- Primary documented in this encounter Care Teams Machine Setter Supervisor Relationship Specialty Start Date End Date Ok Sanchez MD PCP - General Internal Medicine 10/01/12 documented as of this encounter
[2025-05-14 11:26] LABS: Hematocrit 26.0 % (36-47); Hemoglobin 7.50 g/dL (11.27-16.99); Mean Corpuscular HGB Conc 28.8 g/dL (30-55); Mean Corpuscular Hemoglobin 26.6 pg (27-33); Mean Corpuscular Volume 92.2 fl (85-98); Nucleated Red Blood Cells % 0 %; Platelet Count 314 10^3/cmm (157-399); Red Blood Count 2.82 10^6/uL (3.85-5.65); White Blood Count 10.99 10^3/uL (3.29-11.43)
[2025-05-14 11:51] VITALS: PULSE 96; O2SAT 96
[2025-05-14] MEDS: iohexol 350 mg/mL 500 mL Btl (per mL) IV (11:58)
[2025-05-14 12:02] LABS: Respiratory Syncytial Virus Ce NEGATIVE (Negative); SARS-CoV-2 PCR NEGATIVE (Negative)
[2025-05-14 12:03] LABS: Alanine Aminotransferase < 5 U/L (0-33); Albumin Level 3.1 g/dL (3.5-5.2); Alkaline Phosphatase 119 U/L (35-105); Anion Gap 17.6 (5-19); Aspartate Amino Transferase 12 U/L (0-32); Blood Urea Nitrogen 12 mg/dL (8-23); Calcium 8.5 mg/dL (8.5-10.5); Carbon Dioxide 29 mmol/L (22-29); Chloride 93 mmol/L (98-107); Creatinine Clr Calc Pharmacy 65.2580; Globulin 3.1 g/dL (1.3-4.6); Glucose 152 mg/dL (65-115); NT Pro B Type Natriuretic Pept 1292 pg/mL (0-125); Osmolality Calculated 285 mOsm/kg (285-295); Potassium 3.6 mmol/L (3.5-5.1); Sodium 136 mmol/L (136-145); Total Protein 6.2 g/dL (6.6-8.7)
[2025-05-14 12:21] VITALS: BP 79/47; PULSE 105; RESP 20; O2SAT 95
--- NOTE | 2025-05-14 12:28 | XRR_ITS ---
PROCEDURE INFORMATION: Exam: XR Left Foot Exam date and time: 05/14/2025 12:36 PM Age: 70 years old Clinical indication: Injury or trauma; Fall; Blunt trauma; Foot; Left TECHNIQUE: Imaging protocol: Radiologic exam of the left foot. Views: 3 or more views. COMPARISON: CR XR foot LT min 3V* [id number] 12/06/2019 3:48 PM FINDINGS: Bones/joints: Diminished bone mineralization. Reconstruction plate is seen along the proximal 5th metatarsal with intact hardware. First MTP degenerative changes. Cortical irregularity is noted along the medial base of the 1st proximal phalanx with lucency which could represent a small fracture including avulsion fracture, best seen on the lateral view. Soft tissues: Normal. XR/XR foot LT min 3V* [id number] IMPRESSION: Possible small fracture along the base of the 1st proximal phalanx.Correlate clinically.
--- NOTE | 2025-05-14 12:50 | PC.NURSE ---
Dr. Jameson aware of PT blood pressure.
--- NOTE | 2025-05-14 12:50 | PC.NURSE ---
This nurse, Dr. Jameson, and PT spoke with PT daughter about risk/benefit of transfer. PT reports she is on palliative care. PT and daughter are making decision on of they would like to resume comfort care or pursue transfer
[2025-05-14 13:45] VITALS: BP 96/53; PULSE 86; O2SAT 95
[2025-05-14 14:45] VITALS: BP 104/48; PULSE 83; O2SAT 94
[2025-05-14] MEDS: HYDROmorphone 0.5 MG/0.5 ML INJ IVP (17:03)
[2025-05-14 17:24] VITALS: BP 117/52; PULSE 97; O2SAT 95
== END 2025-05-14 17:26 | disposition home or self-care (01) ==
PROVIDERS: Emergency Provider Emergency Medicine; PCP Family Medicine
DX: C40.21 Malignant neoplasm of long bones of right lower limb (principal); I28.1 Aneurysm of pulmonary artery; Z79.01 Long term (current) use of anticoagulants; Z11.52 Encounter for screening for COVID-19; Z87.891 Personal history of nicotine dependence; Z85.828 Personal history of other malignant neoplasm of skin; I25.10 Atherosclerotic heart disease of native coronary artery without angina pectoris; J44.9 Chronic obstructive pulmonary disease, unspecified; I11.0 Hypertensive heart disease with heart failure; I50.30 Unspecified diastolic (congestive) heart failure
CPT/HCPCS: 36415; 36600; 71045; 71275; 73630; 80053; 82805; 83880; 85025; 87040; 87637; 93005; 96361; 96374; 99285; J1171; J7030

== ENCOUNTER → 2025-05-15 14:11 | Outpatient (BNVA) | payer MEDICARE, SELFPAY | PROVIDERS: PCP Family Medicine; Visit Provider Thoracic Surgery (Cardiothoracic Vascular Surgery) | DX: I96 Gangrene, not elsewhere classified (principal); L97.111 Non-pressure chronic ulcer of right thigh limited to breakdown of skin; Z09 Encounter for follow-up examination after completed treatment for conditions other than malignant neoplasm | CPT/HCPCS: 99213 ==